=== PATIENT | female | born 1980 | race Caucasian/White ===

== ENCOUNTER → 2017-01-06 | Outpatient (CLI) | payer OTHER ==
[~2017-01-06] MED LIST: CITA40TA4 PO
[2017-01-06 14:05] LABS: RATIO 7.6 mcg/mg (0-30.0)
[2017-01-06 14:12] LABS: ALT/SGPT 21 U/L (12-78); BLOOD UREA NITROGEN 14 mg/dl (7-18); BUN/CREATININE RATIO 21.8 (10-20); CALCIUM 8.5 mg/dl (8.5-10.1); CARBON DIOXIDE 27 mmol/L (21-32); CHLORIDE 105 mmol/L (98-107); CHOLESTEROL 172 mg/dl (0-200); CREATININE 0.65 mg/dl (0.60-1.20); GLUCOSE 85 mg/dl (70-99); POTASSIUM 4.1 mmol/L (3.5-5.1); SODIUM 138 mmol/L (136-145); TRIGLYCERIDES 252 mg/dl (0-150); VERY LOW DENSITY LIPOPROT CALC 50 mg/dl
[2017-01-06 14:23] LABS: ALKALINE PHOSPHATASE 78 U/L (45-117); AST/SGOT 10 U/L (15-37); CHOLESTEROL/HDL RATIO 4.1; HDL CHOLESTEROL 42 mg/dl; LDL CHOLESTEROL CALCULATED 80 mg/dl
[2017-01-06 14:32] LABS: ESTIMATED AVERAGE GLUCOSE 103 mg/dl; HA1C FLAG Normal (Normal)
== END | disposition home or self-care (01) ==
LOC: C.LAB1850 11:43
PROVIDERS: ATTEND Internal Medicine
DX: Z00.00 Encounter for general adult medical examination without abnormal findings (principal); Z13.220 Encounter for screening for lipoid disorders; E11.9 Type 2 diabetes mellitus without complications; F34.1 Dysthymic disorder

== ENCOUNTER → 2017-03-14 | Outpatient (CLI) | payer OTHER ==
[2017-03-18 15:57] LABS: MICROSOMAL AB 6 IU/ML (<9)
== END | disposition home or self-care (01) ==
LOC: C.LAB1850 14:00
PROVIDERS: ATTEND Internal Medicine
DX: E03.9 Hypothyroidism, unspecified (principal)

== ENCOUNTER → 2017-06-26 | Outpatient (CLI) | payer OTHER | END | disposition home or self-care (01) | LOC: C.LAB1850 14:36 | PROVIDERS: ATTEND Internal Medicine | DX: E03.9 Hypothyroidism, unspecified (principal) ==

== ENCOUNTER → 2017-10-27 | Outpatient (CLI) | payer OTHER ==
[2017-10-27 16:59] LABS: ALBUMIN 3.7 gm/dl (3.4-5.0); ALT/SGPT 22 U/L (12-78); AST/SGOT 12 U/L (15-37); BLOOD UREA NITROGEN 12 mg/dl (7-18); CALCIUM 8.4 mg/dl (8.5-10.1); CARBON DIOXIDE 29 mmol/L (21-32); CHOLESTEROL 153 mg/dl (0-200); CREATININE 0.47 mg/dl (0.60-1.20); GLUCOSE 83 mg/dl (70-99); POTASSIUM 4.1 mmol/L (3.5-5.1); SODIUM 138 mmol/L (136-145)
[2017-10-27 17:02] LABS: ALKALINE PHOSPHATASE 80 U/L (45-117); LDL CHOLESTEROL CALCULATED 45 mg/dl; TOTAL PROTEIN 7.2 gm/dl (6.4-8.2)
[2017-10-27 17:04] LABS: CREATININE RANDOM URINE 84.7 mg/dl
[2017-10-28 06:04] LABS: HEMOGLOBIN A1C 5.2 % (4.5-5.6)
== END | disposition home or self-care (01) ==
LOC: C.LAB1850 15:21
PROVIDERS: ATTEND Internal Medicine
DX: E11.9 Type 2 diabetes mellitus without complications (principal); Z13.220 Encounter for screening for lipoid disorders

== ENCOUNTER 2019-04-16 07:00 | Observation (INO) ==
--- NOTE | 2019-04-08 10:34 | PAT Medication Instructions ---
Medication Instructions Date of Service April 08, 2019 Home Medications fluticasone propionate [Flonase Allergy Relief] 1 spray INTRANASAL QAM levothyroxine 75 mcg PO QAM metformin 500 mg PO BID omeprazole 40 mg PO QAM paroxetine HCl [Paxil] 40 mg PO HS quetiapine [Seroquel] 200 mg PO HS topiramate 100 mg PO HS DO NOT take the morning of surgery metformin 500 mg PO BID Take morning of surgery With a small sip of water, OTHERWISE NOTHING TO EAT OR DRINK AFTER MIDNIGHT: fluticasone propionate [Flonase Allergy Relief] 1 spray INTRANASAL QAM levothyroxine 75 mcg PO QAM omeprazole 40 mg PO QAM Take evening before surgery metformin 500 mg PO BID paroxetine HCl [Paxil] 40 mg PO HS quetiapine [Seroquel] 200 mg PO HS topiramate 100 mg PO HS Other Notes If you have any questions please call us at [phone] or [phone] or [phone] or [phone]
--- NOTE | 2019-04-08 14:35 | Anesthesiology Consultation ---
Date of Service April 08, 2019 Assessment & Plan (1) Encounter for pre-operative examination: - Check BSG, test AM DOS Chart Review Chart Review: Pending: Refer to Additional Notes / Consult section (pending preop testing (labs, EKG)) and Patient seen in Pre Admission Testing Teaching & Discussion Pre-Anesthesia Teaching/Discussion Notes: Instructed NPO after midnight before surgery,except medications with 15 cc of water. Medication instructions provided according to the PAT guidelines. History Surgery Operation Date: 04/16/19 07:00 Proposed Procedures p Diagnostic Laparoscopy, Possible Total Laparoscopic Hysterectomy, Possible Total Abdominal Hysterectomy, Left Salpingo Oophorectomy and Cystoscopy - Pam Hutchins Height/Weight Height: 5 ft 5 in Weight: 99.1 kg Allergies Allergy/AdvReac Type Severity Reaction Status Date / Time morphine AdvReac Unknown NAUSEA Verified 04/02/19 10:07 VOMITING Medications Home Medications Medication Instructions Recorded Confirmed Last Taken fluticasone propionate [Flonase 1 spray INTRANASAL QA 04/02/19 04/02/19 Unknown Allergy Relief] levothyroxine 75 mcg PO QAM 04/02/19 04/02/19 Unknown metformin 500 mg PO BID 04/02/19 04/02/19 Unknown omeprazole 40 mg PO QAM 04/02/19 04/02/19 Unknown paroxetine HCl [Paxil] 40 mg PO HS 04/02/19 04/02/19 Unknown quetiapine [Seroquel] 200 mg PO HS 04/02/19 04/02/19 Unknown topiramate 100 mg PO HS 04/02/19 04/02/19 Unknown Past Medical History Medical History Depression Diabetes mellitus, type 2 NIDDM GERD (gastroesophageal reflux disease) controlled Hypothyroidism Obesity Exercise / Class Metabolic Activity II 4-5 Yardwork/Stairs/Walk up hill Past Family History Family History Grandmother (Maternal) Family history of diabetes mellitus Grandmother (Paternal) Family history of diabetes mellitus Grandfather (Paternal) Family history of esophageal cancer Past Surgical History Surgical History H/O oophorectomy RIGHT History of laparotomy OVARIAN CYSTECTOMY Past Anesthesia History No Hx of Anesthesia Complications and No Family Hx of Anesthesia Complications History of PONV No Hx of PONV and No Hx of Motion Sickness Social History Smoking Status: Never smoker Do You Dip or Chew Tobacco: No Hx Alcohol Use: No Hx Substance Use: No Review of Systems Reflux controlled. Patient denies chest pain, shortness of breath, dyspnea on exertion, cough, wheezing, palpitations. Physical Exam Vital Signs VITALS BP 123/74 P 83 TEMP 98.1 SP02 100%RA RESP 16 PHYSICAL Full neck and c-spine range of motion. Full TMJ range of motion. TMD 4 finger breaths Mallampati Score 2 Dentition: intact Lungs: clear throughout to auscultation Cardiac: regular rate and rhythm, no murmurs noted Spine: normal Carotid arteries: negative bruit Extremities: no edema
[2019-04-08 15:26] LABS: Basophils # (auto) 0.05 K/uL (0-0.2); Basophils % (auto) 0.7 %; Eosinophils # (auto) 0.17 K/uL (0-0.5); Eosinophils % (auto) 2.2 %; Hematocrit (blood only) 32.2 % (37-47); Hemoglobin 10.5 g/dL (12.0-16.0); Immature Granulocytes # (auto) 0.03 K/uL (0.00-0.02); Immature Granulocytes % (auto) 0.4 %; Lymphocytes # (auto) 1.81 K/uL (1.2-3.4); Lymphocytes % (auto) 23.7 %; Mean Corpuscular Hemoglobin 25.2 pg (25-34); Mean Corpuscular Hgb Conc 32.6 g/dL (32-36); Mean Corpuscular Volume 77.2 fL (80-100); Mean Platelet Volume 10.7 fL (7.4-10.4); Monocytes # (auto) 0.45 K/uL (0.11-0.59); Monocytes % (auto) 5.9 %; Neutrophils # (auto) 5.14 K/uL (1.4-6.5); Neutrophils % (auto) 67.1 %; Platelet Count 233 K/uL (130-400); RDW Coefficient of Variation 14.7 % (11.5-14.5); RDW Standard Deviation 41.6 fL (36.4-46.3); Red Blood Count 4.17 M/uL (4.2-5.4); White Blood Count 7.65 K/uL (4.8-10.8)
[2019-04-08 15:33] LABS: BUN Creatinine Ratio 16.7 (10-20); Calcium 8.9 mg/dl (8.5-10.1); Creatinine Clr Calc Pharmacy 134.8 ml/min; Est GFR (African American) 128.5; Est GFR (Non-African American) 110.8; Potassium 3.4 mmol/L (3.5-5.1)
[2019-04-08 15:35] LABS: Estimated Average Glucose 111 mg/dl; Hemoglobin A1C 5.5 % (4.5-5.6)
[~2019-04-16 07:00] MED LIST changes: -CITA40TA4 PO; +LR 15ML/HR IV SCH
[2019-04-16] MEDS ORDERED: fentaNYL citrate 100 MCG/2 ML VIAL ONE ×4 (07:28→14:42)
[2019-04-16] MEDS ORDERED: MIDAZOLAM HCL 1 MG/ML 2ML VIAL ONE (07:28)
--- NOTE | 2019-04-16 07:50 | History & Physical Bridge Note ---
Date of Service April 16, 2019 History & Physical Bridge Note I have examined the patient, reviewed the History & Physical and in the interval since the performance of the History & Physical I have noted the following changes of clinical significance: no changes noted
[2019-04-16] MEDS ORDERED: LIDOCAINE HCL 2% 2 ML VIAL/AMP(20MG/ML) INFIL ONE (07:59)
[2019-04-16] MEDS ORDERED: ROCURONIUM BROMIDE 10 MG/ML 5 ML VIAL ONE ×5 (07:59→12:52)
[2019-04-16] MEDS ORDERED: ONDANSETRON INJ 2 MG/ML 2 ML VIAL ONE ×2 (07:59→13:35)
[2019-04-16] MEDS ORDERED: PROPOFOL IV EMULSION 10 MG/ML 20 ML VIAL IV ONE (07:59)
[2019-04-16] MEDS ORDERED: CEFAZOLIN 2000MG 2,000 MG/15 ML SYR IV ONE (08:09)
[2019-04-16] MEDS ORDERED: ONDANSETRON INJ 2 MG/ML 2 ML VIAL IV PRN ×2 (08:18→16:23)
[2019-04-16] MEDS ORDERED: PROMETHAZINE HCL 12.5 MG in SODIUM CHLORIDE 0.9% 50 ML IV PRN (08:18)
[2019-04-16] MEDS ORDERED: HYDROmorphone INJ 2 MG/ML SYR/VIAL IV PRN (08:18)
[2019-04-16] MEDS ORDERED: METOCLOPRAMIDE HCL INJ 5 MG/ML 2 ML VIAL IV PRN (08:18)
[2019-04-16] MEDS ORDERED: ATROPINE SULFATE 0.1 MG/ML 10ML SYR IV PRN (08:18)
[2019-04-16] MEDS ORDERED: ePHEDrine sulfate 50 MG/ML AMP IV PRN (08:18)
[2019-04-16] MEDS ORDERED: ACETAMINOPHEN 1000 MG/100 ML IV IV ONE (08:26)
[2019-04-16] MEDS ORDERED: BUPIVACAINE 0.5 % 5 MG/1 ML MPF 30ML VIAL ONE (08:29)
[2019-04-16] MEDS ORDERED: GLYCOPYRROLATE 0.2 MG/ML VIAL ONE ×2 (09:36→14:07)
[2019-04-16] MEDS ORDERED: NEOSTIGMINE METHYLSULFATE 5 MG/5 ML SYR ONE (09:36)
[2019-04-16] MEDS ORDERED: HYDROmorphone INJ 2 MG/ML SYR/VIAL ONE (12:06)
[2019-04-16] MEDS ORDERED: CEFAZOLIN 250 MG/ML 1 GM VIAL ONE (12:10)
[2019-04-16] MEDS ORDERED: FLOSEAL HEMOSTATIC MATRIX 10ML TOP ONE (12:54)
[2019-04-16] MEDS ORDERED: TISSEEL FIBRIN SEALANT 10ML TOP ONE (12:54)
[2019-04-16] MEDS ORDERED: CEFAZOLIN 2000MG 2,000 MG/15 ML SYR IV STA (13:22)
--- NOTE | 2019-04-16 14:18 | Post Operative Brief Note ---
Immediate Post Op Note v1 Date of Surgery April 16, 2019 Pre & Post Diagnosis Operation Date: 04/16/19 08:15 Pre-Op Diagnosis: Endometriosis, Chronic Pelvic Pain, Left Ovarian Post-Op Diagnosis: Endometriosis, Chronic Pelvic Pain, Left Ovarian Procedure Operation Date: 04/16/19 08:15 Actual Procedures p Diagnostic Laparoscopy,Total Laparoscopic Hysterectomy Left Salpingo Oophorectomy and Cystoscopy(Not Applicable) - Pam Hutchnis s Extensive Lysis of Adhesions(Not Applicable) - Stanley Zimmerman MD Surgeon Pam Hutchins Coal Dumping Equipment Operator Ada Khan PA-C Estimated Blood Loss 200 Findings Consistent with Post-Op Diagnosis Drains [place] Catheter
--- NOTE | 2019-04-16 14:28 | Operative Report ---
Post Operative Report Pre & Post Diagnosis Operation Date: 04/16/19 08:15 Pre-Op Diagnosis: Endometriosis, Chronic Pelvic Pain, Left Ovarian Post-Op Diagnosis: Endometriosis, Chronic Pelvic Pain, Left Ovarian Procedure Operation Date: 04/16/19 08:15 Actual Procedures p Diagnostic Laparoscopy,Total Laparoscopic Hysterectomy Left Salpingo Oophorectomy and Cystoscopy(Not Applicable) - aPm hannah Extensive Lysis of Adhesions(Not Applicable) - Stanley Zimmerman MD Surgeon MD Stanley Higginbotham MD Wheelchair Van Driver Ada Khan PA-C Estimated Blood Loss 200 Findings See Below 1. 8 cm anteverted fibroid uterus 2. Omental adhesions and bowel to the anterior abdominal wall, the left pelvic sidewall including the left adnexa, uterine fundus, posterior body of the uterus, and posterior cul-de-sac 2. After extensive lysis of adhesions, the left ovary appeared enlarged and with multiple cysts 3. Normal appearing left fallopian tube 4. Right ovary surgically absent 5. Normal appearing right fimbria on the right IP ligament 6. Anterior cul-de-sac with filmy adhesions to the lower uterine segment 7. Obliterated posterior cul-de-sac 8. Normal appearing liver edge 9. Appendix not visualized 10. On Cystoscopy, brisk bilateral efflux of urine by ureteral orifices Fluids 1200 ml Specimens Uterus, cervix, right fimbria, left fallopian tube and ovary Drains Harris catheter removed prior to the end of the case Anesthesia Type General Complications none Indications 39 yo with pelvic pain and endometriosis. Unable to tolerate medical management with depo lupron. Desires definitive surgical management via hysterectomy. Description of Procedure Under GA in the dorsal lithotomy position, the patient was prepped and drapped in the usual sterile fashion. Beginning at the vagina, a harris catheter was inserted under sterile conditions and left in situ for the remainder of the case. A weighted speculum was then placed in the vagina and with the help of a right angle retractor the cervix was visualized and grasped anteriorly with a single tooth tenaculum. The uterus was sounded to 8 cm with a uterine sound. The cervical os was dilated up. An Advincula uterine manipulator with a metal cup was inserted. The weighted speculum was then removed. Attention was then turned to the abdomen. 0.5%marcaine solution was used for infiltration of all port sites. Beginning in the left upper quadrant ([place]), the skin was first infiltrated with ~ 2 cc of the marcaine solution, then a 5 mm incision was made through the skin with a #11 blade. Direct entry with a 5 mm trocar, sleeve and laparoscope was made into the peritoneal cavity. The opening pressure was < 8 mmHg. The peritoneal cavity was insufflated with CO2 gas to a maximum pressure of 20 mmHg. Examination of the peritoneal cavity revealed no signs of injury from entry and severe omental and bowel adhesions which was noted in the above findings. The patient was then placed in steep Trendelenburg and three more 5 mm trocars were placed, one on the right and two on the left, in the standard technique, taking care to avoid the epigastric vessels. All trocars were placed under direct visualization with no inadvertent damage to underlying structures. The uterus was attempted to be upheld however, due to severe omental and bowel adhesions to the anterior abdominal wall, the uterus was not initially visualized. The hand held Harmonic was then used to gently grasp, coagulate and cut the omental adhesions from the anterior abdominal wall. General surgery was consulted to address the extensive bowel adhesions to the anterior abdominal wall, left pelvic side and uterus. Dr. Zimmerman presented to the OR approximately 10:45 am. An additional 5 mm trocar was inserted in the RUQ, inferior to the liver. Dr. Zimmerman then performed extensive lysis of adhesions and enterolysis using the cordless Harmonic, endoshears, blunt dissection and hydrodissection. Dr. Zimmerman was able to remove the bowel and herniated omentum from the anterior abdominal wall. After freeing the adhesions from the anterior abdominal wall, he dissected additional bowel adhesions from the left adnexal region, allowing visualization of the left fallopian tube and ovary. Dr. Zimmerman then turned his attention to the right adnexal area and lysed peritone al adhesions from the small bowel. Lastly, using endoshears, Dr. Zimmerman was able to free the small bowel from the uterine fundus, posterior body of the uterus, and the colon from the posterior cul-de-sac, allowing normalization of anatomical structures, which in turn, released the uterus from extensive bowel adhesions and restored the obliterated posterior cul-de-sac. After extensive lysis of adhesions (more than 2 hours), hemostasis was appreciated and the hysterectomy portion was initiated. Now that the uterus was able to be visualized, a 5 mm trocar was inserted into the umbilicus to assess a closer field of vision. Beginning on the left side, the Infundibular ligament was identified by lifting the tube towards the anterior wall of the abdomen. The ROBBIN Harmonic device was then used to clamp and ligate the IP ligament in three sequential bites with ligation. The IP was then cut middistance, again being sure to be clear of the ureter. Following this, the broad ligament was sequentially grasped, ligated, and cut in the direction of the round ligament hugging next to the fallopian tube. The round ligament was then ligated and cut, followed by the uteroovarian ligament. Following this, the anterior leaf of the broad ligament was then taken down on the left side, dissecting down towards the peritoneal reflection at the base of the bladder and adjacent to the cervix. Attention was then turned to the right side and working distally along the length of the fallopian tube, the mesosalpinx was exposed by lifting the tube up towards the anterior abdominal wall. The mesosalpinx was then sequentially, clamped, ligated, and cut using the ROBBIN Harmonic working alongside the length of the tube and towards the cornua. Once the level of the cornua was reached the tube was ligated and cut. The right round ligament was then ligated and cut. Following this, the anterior leaf of the broad ligament was then taken down on the right side, dissecting down towards the peritoneal reflection at the base of the bladder and adjacent to the cervix. Once the bladder was appropriately dissected free from the lower anterior uterine segment and the tissues skeletonized, the uterine arteries were bilaterally clamped and ligated. Pedicles were checked and hemostatic. At the level of the metal cup of the uterine manipulator, the vaginal vault was incised circumferentially with the ROBBIN Harmomic. The uterus, cervix, right fallopian tube, and left fallopian tube and ovary was delivered through the vagina and sent to pathology. A vaginal occluder was then placed into the vagina to form a pneumatic seal and all the pedicles as well as the cuff edges were examined. The vaginal vault was then closed with a V-Loc barbed stitch being sure to avoid the bladder lateral pedicles. Following vault closure, the pelvis was copiously irrigated and suctioned. An inspection of all areas was made to ensure hemostasis. Floseal and Tisseal was applied to the adnexal regions and vaginal cuff. Hemostasis was again appreciated. All ports were removed under direct visualization and hemostasis noted. All the incision sites were then closed with 4-0 monocryl sutures in a subcuticular fashion and dermabond. The vaginal occluder and harris catheter were removed without incident. Cystoscopy was then performed. Normal appearing bladder dome noted which was free of lesions or suture. Brisk bilateral efflux of urine by ureteral orifices was visualized. The bladder was drained and the cystoscope was removed. At the end of the procedure, all sponges, instruments, and sharps were counted and correct. Estimated blood loss was 200 ml. The patient was taken to recovery in stable condition. I attest to the content of the Intraoperative Record and any orders documented therein. Any exceptions are noted below.
[2019-04-16] MEDS: fentaNYL citrate 100 MCG/2 ML VIAL IV PRN ×2 (14:44→14:49)
--- NOTE | 2019-04-16 15:39 | Anesthesiology Progress Note ---
Date of Service April 16, 2019 Anesthesia Post Procedure Vital Signs Vital Signs: Temp Pulse Pulse Resp BP BP Pulse Ox 04/16/19 15:30 116 H 15 137/81 98 04/16/19 15:20 115 H 13 134/79 97 04/16/19 15:10 117 H 13 123/85 97 04/16/19 15:00 120 H 16 127/82 95 04/16/19 14:50 118 H 16 129/78 96 04/16/19 14:40 118 H 18 134/90 97 04/16/19 14:31 37.7 C H 120 H 20 137/89 97 04/16/19 07:42 37 C 81 16 130/86 100 Transfer of Care Handoff Completed per policy Notes Mental Status: alert / awake / arousable and participated in evaluation Patient Amnestic to Procedure: Yes Nausea / Vomiting: adequately controlled Pain: adequately controlled Airway Patency, RR, SpO2: stable & adequate BP & HR: stable & adequate Hydration State: stable & adequate Anesthetic Complications: no major complications apparent
[2019-04-16] MEDS ORDERED: OXYCODONE/ACETAMINOPHEN 5mg/325mg TAB PO PRN (16:23)
[2019-04-16] MEDS: IBUPROFEN 600 MG TAB PO SCH ×2 (18:09→22:40)
[2019-04-16] MEDS: ACETAMINOPHEN 325 MG TAB PO SCH ×2 (18:09→22:40)
[2019-04-16] MEDS: SIMETHICONE 80 MG CHEW PO SCH ×2 (18:09→22:41)
[2019-04-16] MEDS ORDERED: TOPIRAMATE 100 MG TAB PO SCH (21:00)
[2019-04-16] MEDS ORDERED: METFORMIN HCL 500 MG TAB PO SCH (21:00)
[2019-04-16] MEDS ORDERED: QUETIAPINE FUMARATE 200 MG TAB PO SCH (21:00)
[2019-04-16] MEDS ORDERED: PARoxetine HCl 20 MG TAB PO SCH (21:00)
[2019-04-16] MEDS ORDERED: DOCUSATE SODIUM 100 MG CAP PO SCH (21:00)
[2019-04-17] MEDS: ACETAMINOPHEN 325 MG TAB PO SCH (04:41)
[2019-04-17] MEDS: IBUPROFEN 600 MG TAB PO SCH (04:41)
[2019-04-17] MEDS: SIMETHICONE 80 MG CHEW PO SCH (04:41)
[2019-04-17] MEDS ORDERED: LEVOTHYROXINE SODIUM 75 MCG TABLET PO SCH (06:30)
[2019-04-17] MEDS ORDERED: SODIUM CHLORIDE 0.65% NA SOLN 45 ML (OCEAN) ONE (06:36)
--- NOTE | 2019-04-17 07:34 | Gynecologic Progress Note ---
Date of Service April 17, 2019 Assessment & Plan (1) Status post hysterectomy with oophorectomy: POD#1. s/p Diagnostic laparoscopy, Extensive lysis of adhesions and enterolysis, Total Laparoscopic Hysterectomy, Right salpingectomy, Left salpingo-oophorectomy and cystoscopy. Patient meeting all discharge criteria. Discharge home with instructions and medications. Subjective s/p Diagnostic laparoscopy, Extensive lysis of adhesions and enterolysis, Total Laparoscopic Hysterectomy, Right salpingectomy, Left salpingo-oophorectomy and cystoscopy. Patient with no complaints this morning. Pain controlled with NSAIDs, Tolerating diet. Ambulating without difficulty. Denies urinary symptoms. Denies flatus. Review of Systems Review of Systems: All systems reviewed & are unremarkable except as noted in HPI & below Physical Exam Constitutional: WD/WN, vitals as above well developed and well nourished Respiratory: normal respiratory effort, lungs clear to auscultation Cardiovascular: RRR, no murmur, no edema Gastrointestinal (Abdomen): Inspection/Auscultation: abdomen normal to inspection and normal bowel sounds Appropriately tender to palpation. Incisions: C/D/I. No erythema or edema. Results & Data Vital Signs (Past 12 Hours) Vital Signs Temp Pulse Resp BP Pulse Ox 04/17/19 04:40 36.9 C 91 H 16 94 04/16/19 23:07 36.6 C 95 H 16 112/74 96 04/16/19 19:30 36.5 C 103 H 18 119/72 98
--- NOTE | 2019-04-17 07:39 | Discharge Summary ---
Date of Service April 17, 2019 Admission HPI Per Admitting Provider 39 yo with chronic pelvic pain and known history of endometriosis. Unable to tolerate medical management with depo lupron. Desiring definitive surgical management via hysterectomy. Admission Exam (Per Admitting) Constitutional WD/WN, vitals as above well developed and well nourished Respiratory normal respiratory effort, lungs clear to auscultation Cardiovascular RRR, no murmur, no edema Gastrointestinal (Abdomen) Inspection/Auscultation: abdomen normal to inspection and normal bowel sounds Discharge Data Procedures Performed Operation Date: 04/16/19 08:15 Actual Procedures p Diagnostic Laparoscopy,Total Laparoscopic Hysterectomy Left Salpingo Oophorectomy and Cystoscopy(Not Applicable) - Pam hannah Extensive Lysis of Adhesions(Not Applicable) - Stanley Zimmerman MD Hospital Course (1) Status post hysterectomy with oophorectomy: POD#1. s/p Diagnostic laparoscopy, Extensive lysis of adhesions and enterolysis, Total Laparoscopic Hysterectomy, Right salpingectomy, Left salpingo-oophorectomy and cystoscopy. Patient meeting all discharge criteria. Discharge home with instructions and medications. Discharge Instructions POST OPERATIVE: BOWEL FUNCTION/MEDICATIONS: 1. Constipation pain and discomfort are the most common complaints 5-7 days after surgery. Points 2-6 address the things that can help. 2. Chewing gum can help stimulate the gut and help improve digestion and motility. 3. Milk of Magnesia 1-2 times per day until return of bowel function. 4. Colace is a stool softener that helps. Taking this 2-3 times per day until bowel function returns to normal is highly recommended. 5. Dulcolax is a laxative that may be used if several days have passed without a bowel movement. Alternatively Miralax may be used daily instead. 6. Drink plenty of fluids as this will also reduce constipation. 7. Narcotic pain medications will be prescribed by your physician. They are safe to use and we encourage you to use them. If you are not allergic, ibuprofen will also be prescribed. Many patients will be able to transition off of the narcotic medications to ibuprofen by postoperative day 3. ACTIVITY RECOMMENDATIONS: 1. Get plenty of rest and listen to your body. If you are tired, take a nap. 2. You may shower, but do not take a tub bath until you see your doctor at the 2 week post operative visit. 3. Absolutely NO intercourse and nothing in the vagina until you are examined by your doctor at the 6 week visit. At that visit it will be determined wh en such activities can be resumed. This can range from 6-12 weeks after your surgery depending on healing time. 4. The main physical activity in the first week should be walking. By the second week you can slowly increase activity. There are no limits on walking up and down stairs. 5. Do not lift more than 5-10 lbs for 4 weeks. Remember the "one-handed rule", i.e. if you can lift something with only one hand it's likely okay. 6. Minimize fish boning machine feeder like vacuuming and exercising for 4 weeks. "Overdoing it" can lead to incisions not healing, pain and vaginal bleeding, so again, listen to your body. 7. Driving can be resumed when you feel able. Do not drive within 24 hours of taking a narcotic medication. EXPECTATIONS: 1. Vaginal spotting, bleeding and discharge are common after surgery. There may even be an odor to the discharge which is often related to sutures used in the vagina. If you experience heavy vaginal bleeding, call the office number day or night [phone]. 2. Bladder discomfort is common after surgery from the catheter. This usually resolves in 1-2 weeks. 3. By the end of the 3rd or 4th week you should be feeling much better. It may take up to 6 weeks for your energy levels to return to normal. 4. Narcotic medications have side effects such as: dizziness, headache, nausea and/or vomiting. If you suspect your pain medication is causing problems, call our office and we may be able to prescribe an alternate medication. 5. The skin incisions are often covered with a liquid bandage. This will gradually peel off over time. CALL THE OFFICE IF YOU HAVE ANY OF THE FOLLOWIN. Temperature of 101 degrees or higher. 2. Severe abdominal or pelvic pain not relieved by pain medication. 3. Persistent nausea or vomiting. 4. Increased pain with urination or difficulty urinating. 5. Bright red bleeding that soaks more than 1 pad per hour. CONTACT PHONE NUMBERS: Main Office: [phone] Avoid all tobacco products. If you need help to stop smoking, call [facility] FREE QUITLINE at . This is a free call.
[2019-04-17] MEDS ORDERED: PANTOprazole 40 MG TAB PO SCH (09:00)
[2019-04-17] MEDS ORDERED: FLUTICASONE PROPIONATE NA SPR 16 GM BTL SCH (09:00)
== END 2019-04-17 07:55 | disposition home or self-care (01) ==
LOC: ASU 07:00 → 4S2 07:00

== ENCOUNTER 2019-04-19 16:12 | Inpatient (IN) ==
[2019-04-19] MEDS ORDERED: PIPERACILLIN/TAZOBACTAM 4.5 GM/120 ML BAG IV ONE (16:30)
[2019-04-19] MEDS ORDERED: SODIUM CHLORIDE 0.9% 1000ML 2,000 ML IV ONE (16:30)
[2019-04-19] MEDS ORDERED: PIPERACILL/TAZOBAC CONSULT ACTIVE PRN ×3 (16:30→23:37)
[2019-04-19] MEDS ORDERED: HYDROmorphone INJ 0.5 MG/0.5 ML SYR IV STA ×2 (16:30→20:49)
[2019-04-19] MEDS ORDERED: ONDANSETRON INJ 2 MG/ML 2 ML VIAL IV STA (16:30)
[2019-04-19] MEDS ORDERED: SODIUM CHLORIDE 0.9% 250 ML IV PRN (16:33)
[2019-04-19] MEDS ORDERED: ACETAMINOPHEN 500 MG TAB PO STA (16:36)
[2019-04-19 16:44] LABS: Hematocrit (blood only) 28.8 % (37-47); Hemoglobin 9.7 g/dL (12.0-16.0); Mean Corpuscular Hemoglobin 25.5 pg (25-34); Mean Corpuscular Hgb Conc 33.7 g/dL (32-36); Mean Corpuscular Volume 75.6 fL (80-100); Platelet Count 353 K/uL (130-400); RDW Coefficient of Variation 15.4 % (11.5-14.5); RDW Standard Deviation 42.8 fL (36.4-46.3); Red Blood Count 3.81 M/uL (4.2-5.4)
[2019-04-19 16:56] LABS: INR 1.2 (0.9-1.1); Partial Thromboplastin Ratio 1.3; Partial Thromboplastin Time 34.3 Seconds (21.0-31.0); Prothrombin Time 11.9 Seconds (9.0-12.0)
[2019-04-19 17:03] LABS: Basophils # (auto) 0.01 K/uL (0-0.2); Basophils % (auto) 0.1 %; Immature Granulocytes # (auto) 0.05 K/uL (0.00-0.02); Immature Granulocytes % (auto) 0.4 %; Lymphocytes # (auto) 0.86 K/uL (1.2-3.4); Lymphocytes % (auto) 6.4 %; Monocytes % (auto) 5.2 %; Neutrophils # (auto) 11.88 K/uL (1.4-6.5); Neutrophils % (auto) 87.9 %
--- NOTE | 2019-04-19 17:04 | XRay Report ---
SINGLE VIEW CHEST CLINICAL HISTORY: Sepsis. FINDINGS: An AP, portable, upright chest radiograph is compared to study dated 11/26/2012. The examina tion is degraded by portable technique, large body habitus, and patient rotation. The cardiomediastin al silhouette is unremarkable. There are low lung volumes with bibasilar atelectasis. No airspace con solidation or large pleural effusion is identified. Apparent lucency beneath the right hemidiaphragm likely corresponds to asymmetry of the anterior and posterior aspect of the diaphragm. No pneumothora x is seen. The bony thorax is grossly intact. IMPRESSION: 1. Low lung volumes with no acute cardiopulmonary abnormality. 2. Apparent lucency underlying the right hemidiaphragm likely corresponds to asymmetry of the anterio r/posterior diaphragm. Intraperitoneal free air is considered much less likely. A lateral chest radio graph would be confirmatory. Electronically signed by: Tanmay Rodriguez M.D. 04/19/2019 5:03 PM
[2019-04-19 17:05] LABS: iSTAT Creatinine 1.3 mg/dl (0.6-1.3); iSTAT Hemoglobin 9.5 g/dl (12.0-16.0); iSTAT Ionized Calcium 1.08 mmol/l (1.12-1.32); iSTAT Potassium 3.5 mEq/L (3.3-5.0)
[2019-04-19 17:07] LABS: Albumin Globulin Ratio 0.7 (0.9-2); Albumin Level 2.6 gm/dl (3.4-5.0); BUN Creatinine Ratio 17.6 (10-20); Est GFR (African American) 60.1; Est GFR (Non-African American) 51.9; Potassium 3.5 mmol/L (3.5-5.1); Total Protein 6.6 gm/dl (6.4-8.2)
[2019-04-19] MEDS ORDERED: IOVERSOL 100ml IV PRN (17:20)
--- NOTE | 2019-04-19 18:45 | CT Scan Report ---
ABDOMEN AND PELVIS CT WITH IV CONTRAST CT DOSE: 1571.66 mGy.cm HISTORY: Sepsis post op TECHNIQUE: Multiaxial CT images of the abdomen and pelvis were performed following the use of intrave nous contrast. A dose lowering technique was utilized adhering to the principles of ALARA. COMPARISON STUDY: None. FINDINGS: Patchy bilateral lower lobe densities. There is a moderate amount of pneumoperitoneum. Trac e perihepatic ascites. The gallbladder is distended. The liver, spleen, right adrenal gland, pancreas , and right kidney are unremarkable. No hydronephrosis. A 1.3 cm exophytic hypodense lesion within th e lower pole the left kidney. This likely represents a cyst. There is a 3.5 cm indeterminate left adr enal gland nodule/mass. No retroperitoneal lymphadenopathy. Small fat and fluid containing infraumbil ical hernias. Gas within the bladder. No bladder wall thickening. Postoperative changes consistent wi th recent hysterectomy. Partially loculated gas and fluid collection seen within the deep pelvis abut ting the vaginal cuff and extending into the left side of the pelvis to the left paracolic gutter whi ch measures approximately 13 x 3.7 cm. There is also a small amount of fluid within the right lower q uadrant which is not loculated. There is an additional small partially loculated gas and fluid collec tion within the left side the abdomen on image 344 measuring 4.7 cm. No evidence for bowel obstructio n. Inflammatory change seen throughout the mesentery. Multiple colonic diverticula. Focal thickening within the mid to distal descending colon which could be reactive to the adjacent partially loculated fluid collection. Mild thickening and inflammatory change at the vaginal cuff. Small amount of fluid along the left side of the mesentery. IMPRESSION: 1. Status post hysterectomy. There is a moderate amount of pneumoperitoneum which is nonspecific but favors postoperative change. 2. There are 2 partially loculated gas and fluid collections seen within the deep pelvis abutting the vaginal cuff and along the left side the abdomen as described above. This could represent developing abscesses. 3. Diffuse mesenteric edema/inflammatory change. There is also a small amount of fluid along the righ t side the abdomen, within the mesentery, and perihepatic locations. This could be due to postoperati ve change or an infectious process given the patient's history of sepsis. 4. Focal thickening within the mid to distal descending colon which is likely reactive to the adjacen t partially loculated dominant gas and fluid collection. However, a superimposed diverticulitis/colit is could also have a similar appearance would be difficult to exclude. 5. A 3.5 cm left adrenal gland nodule/mass. Follow-up nonemergent dedicated adrenal MRI is recommende d for further evaluation. 6. Patchy right basilar densities are nonspecific and may represent atelectasis or pneumonia. 8. Distended gallbladder. 9. Additional findings as described above. Electronically signed by: Jeffery Slaughter M.D. 04/19/2019 6:43 PM
[2019-04-19] MEDS ORDERED: SODIUM CHLORIDE 0.9% 1000ML 1,000 ML IV ONE (19:18)
[2019-04-19 20:12] LABS: Appearance Urine Clear (Clear); Bilirubin Urine Negative (Negative); Blood Urine 3+ (Negative); Color Urine Yellow; Glucose Urine UA Negative (Negative); Ketones Urine Negative (Negative); Leukocyte Esterase Urine Trace (Negative); Nitrite Urine Negative (Negative); Protein Urine Negative (Negative); Urobilinogen Urine Negative (Negative)
[2019-04-19 20:23] LABS: Epithelial Cell Urine >30 /lpf (0-5); RBC Urine >30 /hpf (0-4)
[2019-04-19 20:24] LABS: Bacteria Urine 1+ (Negative)
--- NOTE | 2019-04-19 21:55 | Consultation ---
Date of Consultation April 19, 2019 Assessment & Plan (1) Sepsis: 39-year-old female recent history of hysterectomy presents with tachycardia, elevated white count and generally feeling unwell. Treatment of sepsis based on SIRS criteria initiated in the ED. Patient is being admitted for fluid management and IV antibiotics. Sepsis per sirs No signs of peritonitis, post op fluid collection seen on abdominal CT Continue broad-spectrum antibioticsZosyn Continue maintenance fluid, received 3 L in the ED Lactate improved from 3.3 to 1.8 following fluid management Keep patient n.p.o. except for ice chips, sips and meds Continue Zofran for nausea Status post hysterectomy Continue pain control Hypothyroidism Continue Synthroid Diabetes Sliding scale Mood disorder Continue paroxetine, Seroquel, topiramate DVT prophylaxisSCDs CODE STATUSfull Saige.p.o. except for chips, sips, meds (2) Abdominal abscess: (3) Nausea & vomiting: (4) Status post hysterectomy with oophorectomy: (5) Encounter for pre-operative examination: (6) Depression: (7) Hypothyroid: (8) Diabetes: Supervising Physician Co-Signing Physician Notes Patient was seen and examined by me personally. I reviewed the chart, the orders and discussed the case in detail with Dr. Agustin Johnson MD. . I read this consultation note and agree with its contents to entirety. History of Present Illness Requesting Physician: Dr. Grullon Reason for Consultation: Sepsis, fluid management Attending Physician: Dr. Moody History of Present Illness 41-year-old female with past history of depression, hypothyroidism, diabetes presents from PCP following tachycardia and feeling generally unwell. Patient recently had hysterectomy last Friday. She is been seen in the emergency room yesterday with nausea and vomiting. She denies any significant abdominal pain, but states that there is some generalized tenderness. She has had decreased appetite, but has been having her bowels. She diarrhea or blood in her stool. Denies fevers, shortness of breath, cough, sore throat, runny nose. Allergies Allergy/AdvReac Type Severity Reaction Status Date / Time morphine AdvReac Intermediate NAUSEA Verified 04/19/19 20:41 VOMITING Home Medications Home Medications Medication Instructions Recorded Confirmed Type fluticasone propionate [Flonase 1 spray INTRANASAL QAM 04/02/19 04/19/19 History Allergy Relief] levothyroxine 75 mcg PO QAM 04/02/19 04/19/19 History metformin 500 mg PO BID 04/02/19 04/19/19 History omeprazole 40 mg PO QAM 04/02/19 04/19/19 History paroxetine HCl [Paxil] 40 mg PO HS 04/02/19 04/19/19 History quetiapine [Seroquel] 200 mg PO HS 04/02/19 04/19/19 History topiramate 100 mg PO HS 04/02/19 04/19/19 History docusate sodium [Colace] 100 mg PO BID #30 cap 04/16/19 04/19/19 Rx oxycodone-acetaminophen [Percocet] 1 tab PO Q4H PRN #14 tab 04/16/19 04/19/19 Rx acetaminophen 650 mg PO Q6H PRN 04/18/19 04/19/19 History ibuprofen 600 mg PO Q6H PRN 04/18/19 04/19/19 History ondansetron HCl [Zofran] 4 mg PO Q6H #10 tab 04/18/19 04/19/19 Rx oxycodone 5 mg PO Q6H PRN #14 tab 04/18/19 04/19/19 Rx simethicone 80 mg PO PCHS PRN 04/18/19 04/19/19 History Patient History Medical History Depression Diabetes mellitus, type 2 NIDDM GERD (gastroesophageal reflux disease) controlled Hypothyroidism Obesity Surgical History H/O oophorectomy RIGHT History of hysterectomy History of laparotomy OVARIAN CYSTECTOMY Family History Grandmother (Maternal) Family history of diabetes mellitus Grandmother (Paternal) Family history of diabetes mellitus Grandfather (Paternal) Family history of esophageal cancer Social History Preferred Language: Croatian 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: Effective Senior Storage Administrator Required: No Beliefs That Will Affect Care: None marital status: Current Living Situation: Spouse current occupational status: employed Feels Safe at Home: Yes Smoking Status: Never smoker Second Hand Exposure: No ; Hx Alcohol Use: No Hx Substance Use: No Dental Care, Regularly: Yes Seatbelt Use: always Sunscreen Use: Yes Review of Systems Review of Systems: All systems reviewed & are unremarkable except as noted in HPI & below Physical Exam Constitutional: WD/WN, vitals as above Eyes: PERRL, conjunctivae normal, anicteric sclerae ENMT: external ear and nose normal, oropharynx normal Neck: trachea midline, no thyromegaly Respiratory: normal respiratory effort, lungs clear to auscultation Cardiovascular: RRR, no murmur, no edema Gastrointestinal (Abdomen): Inspection/Auscultation: + abdomen distended, + abdominal edema and + abdominal surgical scar Percussion/Palpation: abdomen soft; abdomen nontender, no guarding and abdomen not rigid Periumbilical ecchymosis, lap incisions are clean, intact, no surrounding erythema or cellulitis. Results & Data Vital Signs (Past 12 Hours) Vital Signs Temp Pulse Pulse Resp BP BP Pulse Ox 04/19/19 20:30 120 H 115/89 04/19/19 20:21 111 H 04/19/19 20:15 106/69 04/19/19 20:00 106/68 04/19/19 19:48 110 H 120/70 04/19/19 19:46 115 H 04/19/19 18:31 118 H 04/19/19 18:30 117 H 94/61 L 04/19/19 18:20 115 H 33 H 04/19/19 18:15 116 H 26 H 90/66 L 04/19/19 18:10 118 H 22 04/19/19 18:01 118 H 22 04/19/19 18:00 119 H 25 H 104/62 04/19/19 17:50 121 H 28 H 04/19/19 17:45 122 H 25 H 101/67 04/19/19 17:40 121 H 33 H 04/19/19 17:31 125 H 39 H 04/19/19 17:30 125 H 41 H 101/60 04/19/19 17:28 37.1 C 126 H 24 108/51 L 99 04/19/19 17:27 126 H 44 H 04/19/19 17:26 128 H 43 H 108/61 04/19/19 17:10 121 H 23 100 04/19/19 17:04 122 H 24 106/68 95 04/19/19 17:01 121 H 38 H 100 04/19/19 17:00 121 H 37 H 106/68 100 04/19/19 16:53 127 H 41 H 92 04/19/19 16:52 128 H 20 98/66 L 92 04/19/19 16:50 127 H 42 H 98/66 L 92 04/19/19 16:49 88 L 04/19/19 16:19 39.1 C H 130 H 20 116/78 94 PG Care Time/CCT Total # of Minutes Spent Total Time Spent with Patient: Total time spent is greater than 50% in coordination of care (as documented) at patient's floor/unit and/or counseling patient: Resident Activity Tracking Resident Involvement: Resident Care Provided Care Provided: Adult Hospital Medicine (1) Sepsis Sepsis acute organ dysfunction status: unspecified Sepsis type: sepsis due to unspecified organism Qualified Code(s): A41.9 - Sepsis, unspecified organism (2) Nausea & vomiting Vomiting Intractability: non-intractable Vomiting type: unspecified Qualified Code(s): R11.2 - Nausea with vomiting, unspecified
--- NOTE | 2019-04-19 22:25 | History and Physical Report ---
DATE OF ADMISSION: 04/19/2019 HISTORY OF PRESENT ILLNESS: The patient is a 39-year-old status post total laparoscopic hysterectomy on 04/16/2019. The patient was discharged home on 04/17/2019 in stable condition. The patient was seen again in the ER on 04/18/2019 for nausea and vomiting. She was given Zofran and discharged home. She did, however, have tachycardia during the ER visit on 04/18/2019 and was asked to follow up with her PCP. The patient saw her PCP this morning who told her she looked rather pale and asked her to be seen in the ER. In the ER, the patient presented with complaints of generalized fatigue and mild abdominal pain. She denied any headache or shortness of breath. Vitals at the ER showed pulse of 120, blood pressure was 101/67. CBC and complete chemistry were done in the ER. Hemoglobin was 9.5, hematocrit was 28. There is some bandemia. Coags: INR 1.2, PTT 34.3. Chemistry showed BUN of 23, creatinine 1.28, glucose is 153. The patient's lactate is 3.3. She has been given lactate by the ER physician. Repeat lactate is 1.8, which is normal range. The patient had CT scan and x-ray done. Chest x-ray showed low lung volumes with no acute cardiopulmonary abnormality. There was no intraperitoneal free air seen on chest x-ray. CT scan showed moderate amount of pneumoperitoneum which was consistent with postop changes. There were two partially lobulated gas fluid collections seen within the deep pelvic abutting the vaginal cuff along the left side of the abdomen. It was described as a finding that could represent an abscess. There was a 3.5 cm left adrenal gland nodule. Otherwise, the rest of the CT scan is rather unremarkable. PAST MEDICAL HISTORY: The patient has history of depression, diabetes, and thyroid disease. PAST SURGICAL HISTORY: The patient has had 2 abdominal surgeries including her most recent total abdominal hysterectomy. FAMILY HISTORY: Noncontributory. ALLERGIES: THE PATIENT IS ALLERGIC TO MORPHINE. SHE REPORTS NAUSEA AND VOMITING. PHYSICAL EXAMINATION: GENERAL: Well-developed, well-nourished white female, does not appear to be in any acute distress. VITAL SIGNS: Blood pressure is 115/89, pulse is 120. The patient denies any shortness of breath. HEART: S1, S2, tachycardic. LUNGS: Clear to auscultation bilaterally. ABDOMEN: Slightly distended. Incision sites from the laparoscopic sites are unremarkable. The patient reports having bowel movements. There is positive bowel sounds. EXTREMITIES: No cyanosis, clubbing or edema. ASSESSMENT AND PLAN: Tachycardia and abdominal pain, status post total abdominal hysterectomy. The patient is being admitted for observation. We will do expectant management for now including with IV fluids management and monitor the patient. The patient will be started on antibiotics as well.
[2019-04-19] MEDS ORDERED: PIPERACILLIN/TAZOBACTAM 4.5 GM in DEXTROSE 5% 100 ML IV SCH (23:00)
--- NOTE | 2019-04-19 23:33 | Emergency Department Note ---
Entered by Macy Dunn acting as a scribe for Betito Simms DO History of Present Illness General Chief complaint: Abdominal Pain Stated complaint: BELLY PAIN, HEART RACING Source: patient History of Present Illness Provider complaint: abdominal pain Onset (ago): day(s) 4 Location: abdomen Pain Consistency: + intermittent Maximum Pain Intensity: 4 Current Pain Intensity: 5 Associated symptoms: + cough, + fever/chills, + weakness and + other (+dehydration, -runny nose, -vaginal bleeding, -vaginal discharge, -urinary symptoms, +dehydrated); no chest pain and no shortness of breath The patient is a 39 year old female who presents to the Emergency Room with complaints of worsening abdominal pain since her hysterectomy on Friday. She reports that it was done because of her endometriosis and cyst on her ovary. She notes that it was done by Dr. Hutchins and she notes that there were complications of adhesions during the operation. She notes that the pain is intermittent and located in her lower abdomen. The patient rates her pain as 5/10. She states that she was here yesterday for nausea and palpitations which has since resolved. She mentions she is unsure when her fever started. She denies any cough, runny nose, vaginal bleeding, vaginal discharge, chest pain, urinary symptoms, or shortness of breath. She notes that she has been weak and felt dehydrated. Home Medications Home Medications Medication Instructions Recorded Confirmed Type fluticasone propionate [Flonase 1 spray [facility] 04/02/19 04/19/19 History Allergy Relief] levothyroxine 75 mcg PO QA 04/02/19 04/19/19 History metformin 500 mg PO BID 04/02/19 04/19/19 History omeprazole 40 mg PO QAM 04/02/19 04/19/19 History paroxetine HCl [Paxil] 40 mg PO HS 04/02/19 04/19/19 History quetiapine [Seroquel] 200 mg PO HS 04/02/19 04/19/19 History topiramate 100 mg PO HS 04/02/19 04/19/19 History docusate sodium [Colace] 100 mg PO BID #30 cap 04/16/19 04/19/19 Rx oxycodone-acetaminophen [Percocet] 1 tab PO Q4H PRN #14 tab 04/16/19 04/19/19 Rx acetaminophen 650 mg PO Q6H PRN 04/18/19 04/19/19 History ibuprofen 600 mg PO Q6H PRN 04/18/19 04/19/19 History ondansetron HCl [Zofran] 4 mg PO Q6H #10 tab 04/18/19 04/19/19 Rx oxycodone 5 mg PO Q6H PRN #14 tab 04/18/19 04/19/19 Rx simethicone 80 mg PO PCHS PRN 04/18/19 04/19/19 History Allergies Allergy/AdvReac Type Severity Reaction Status Date / Time morphine AdvReac Intermediate NAUSEA Verified 04/19/19 20:41 VOMITING Past Med/Surg History Medical History Depression Diabetes mellitus, type 2 NIDDM GERD (gastroesophageal reflux disease) controlled Hypothyroidism Obesity Surgical History H/O oophorectomy RIGHT History of hysterectomy History of laparotomy OVARIAN CYSTECTOMY Family History Grandmother (Maternal) Family history of diabetes mellitus Grandmother (Paternal) Family history of diabetes mellitus Grandfather (Paternal) Family history of esophageal cancer Social History Preferred Language: Turkish 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: Effective Senior Dentist Required: No Beliefs That Will Affect Care: None marital status: Current Living Situation: Spouse current occupational status: employed Feels Safe at Home: Yes Smoking Status: Never smoker Second Hand Exposure: No ; Hx Alcohol Use: No Hx Substance Use: No Dental Care, Regularly: Yes Seatbelt Use: always Sunscreen Use: Yes Review of Systems See HPI for pertinent positives & negatives. and A total of 10 systems reviewed and were otherwise negative Physical Exam Vital Signs Vital Signs - 24 hr 04/19/19 16:19 04/19/19 16:49 04/19/19 16:50 Temperature 39.1 C H Temperature Source Oral Sepsis Recent Fever Within 48 Hours Yes Sepsis New/Unexplained Change in Mental Status No Sepsis Action Taken by Nursing No Action Required Pulse Rate 130 H 127 H Pulse Rate [Finger] Pulse Rate from SpO2 Sensor 127 H Respiratory Rate 20 42 H Respiratory Effort / Characteristics Respiratory Depth Blood Pressure 116/78 98/66 L Blood Pressure [Right Arm] Blood Pressure Mean 90 76 Blood Pressure Mean [Right Arm] Pulse Oximetry 94 88 L 92 Oxygen Delivery Method Room Air Room Air Nasal Cannula Oxygen Flow Rate 2 04/19/19 16:52 04/19/19 16:53 04/19/19 17:00 Temperature Temperature Source Sepsis Recent Fever Within 48 Hours Sepsis New/Unexplained Change in Mental Status Sepsis Action Taken by Nursing Pulse Rate 127 H 121 H Pulse Rate [Finger] 128 H Pulse Rate from SpO2 Sensor 128 H 121 H Respiratory Rate 20 41 H 37 H Respiratory Effort / Characteristics Non-Labored Respiratory Depth Normal Blood Pressure 106/68 Blood Pressure [Right Arm] 98/66 L Blood Pressure Mean 80 Blood Pressure Mean [Right Arm] 76 Pulse Oximetry 92 92 100 Oxygen Delivery Method Room Air Oxygen Flow Rate 04/19/19 17:01 04/19/19 17:04 04/19/19 17:10 Temperature Temperature Source Sepsis Recent Fever Within 48 Hours Sepsis New/Unexplained Change in Mental Status Sepsis Action Taken by Nursing Pulse Rate 121 H 121 H Pulse Rate [Finger] 122 H Pulse Rate from SpO2 Sensor 122 H 121 H Respiratory Rate 38 H 24 23 Respiratory Effort / Characteristics Respiratory Depth Normal Blood Pressure Blood Pressure [Right Arm] 106/68 Blood Pressure Mean Blood Pressure Mean [Right Arm] 80 Pulse Oximetry 100 95 100 Oxygen Delivery Method Nasal Cannula Oxygen Flow Rate 2 04/19/19 17:26 04/19/19 17:27 04/19/19 17:28 Temperature 37.1 C Temperature Source Oral Sepsis Recent Fever Within 48 Hours Sepsis New/Unexplained Change in Mental Status Sepsis Action Taken by Nursing Pulse Rate 128 H 126 H Pulse Rate [Finger] 126 H Pulse Rate from SpO2 Sensor Respiratory Rate 43 H 44 H 24 Respiratory Effort / Characteristics Respiratory Depth Normal Blood Pressure 108/61 Blood Pressure [Right Arm] 108/51 L Blood Pressure Mean 76 Blood Pressure Mean [Right Arm] 70 Pulse Oximetry 99 Oxygen Delivery Method Nasal Cannula Oxygen Flow Rate 2 04/19/19 17:30 04/19/19 17:31 04/19/19 17:40 Temperature Temperature Source Sepsis Recent Fever Within 48 Hours Sepsis New/Unexplained Change in Mental Status Sepsis Action Taken by Nursing Pulse Rate 125 H 125 H 121 H Pulse Rate [Finger] Pulse Rate from SpO2 Sensor Respiratory Rate 41 H 39 H 33 H Respiratory Effort / Characteristics Respiratory Depth Blood Pressure 101/60 Blood Pressure [Right Arm] Blood Pressure Mean 73 Blood Pressure Mean [Right Arm] Pulse Oximetry Oxygen Delivery Method Oxygen Flow Rate 04/19/19 17:45 04/19/19 17:50 04/19/19 18:00 Temperature Temperature Source Sepsis Recent Fever Within 48 Hours Sepsis New/Unexplained Change in Mental Status Sepsis Action Taken by Nursing Pulse Rate 122 H 121 H 119 H Pulse Rate [Finger] Pulse Rate from SpO2 Sensor Respiratory Rate 25 H 28 H 25 H Respiratory Effort / Characteristics Respiratory Depth Blood Pressure 101/67 104/62 Blood Pressure [Right Arm] Blood Pressure Mean 78 76 Blood Pressure Mean [Right Arm] Pulse Oximetry Oxygen Delivery Method Oxygen Flow Rate 04/19/19 18:01 04/19/19 18:10 04/19/19 18:15 Temperature Temperature Source Sepsis Recent Fever Within 48 Hours Sepsis New/Unexplained Change in Mental Status Sepsis Action Taken by Nursing Pulse Rate 118 H 118 H 116 H Pulse Rate [Finger] Pulse Rate from SpO2 Sensor Respiratory Rate 22 22 26 H Respiratory Effort / Characteristics Respiratory Depth Blood Pressure 90/66 L Blood Pressure [Right Arm] Blood Pressure Mean 74 Blood Pressure Mean [Right Arm] Pulse Oximetry Oxygen Delivery Method Oxygen Flow Rate 04/19/19 18:20 04/19/19 18:30 04/19/19 18:31 Temperature Temperature Source Sepsis Recent Fever Within 48 Hours Sepsis New/Unexplained Change in Mental Status Sepsis Action Taken by Nursing Pulse Rate 115 H 117 H 118 H Pulse Rate [Finger] Pulse Rate from SpO2 Sensor Respiratory Rate 33 H Respiratory Effort / Characteristics Respiratory Depth Blood Pressure 94/61 L Blood Pressure [Right Arm] Blood Pressure Mean 72 Blood Pressure Mean [Right Arm] Pulse Oximetry Oxygen Delivery Method Oxygen Flow Rate 04/19/19 19:46 04/19/19 19:48 04/19/19 20:00 Temperature Temperature Source Sepsis Recent Fever Within 48 Hours Sepsis New/Unexplained Change in Mental Status Sepsis Action Taken by Nursing Pulse Rate 115 H 110 H Pulse Rate [Finger] Pulse Rate from SpO2 Sensor Respiratory Rate Respiratory Effort / Characteristics Respiratory Depth Blood Pressure 120/70 106/68 Blood Pressure [Right Arm] Blood Pressure Mean 86 80 Blood Pressure Mean [Right Arm] Pulse Oximetry Oxygen Delivery Method Oxygen Flow Rate 04/19/19 20:15 04/19/19 20:21 04/19/19 20:30 Temperature Temperature Source Sepsis Recent Fever Within 48 Hours Sepsis New/Unexplained Change in Mental Status Sepsis Action Taken by Nursing Pulse Rate 111 H 120 H Pulse Rate [Finger] Pulse Rate from SpO2 Sensor Respiratory Rate Respiratory Effort / Characteristics Respiratory Depth Blood Pressure 106/69 115/89 Blood Pressure [Right Arm] Blood Pressure Mean 81 97 Blood Pressure Mean [Right Arm] Pulse Oximetry Oxygen Delivery Method Oxygen Flow Rate 04/19/19 20:45 04/19/19 21:00 04/19/19 21:15 Temperature Temperature Source Sepsis Recent Fever Within 48 Hours Sepsis New/Unexplained Change in Mental Status Sepsis Action Taken by Nursing Pulse Rate 112 H 114 H Pulse Rate [Finger] Pulse Rate from SpO2 Sensor Respiratory Rate 14 31 H Respiratory Effort / Characteristics Respiratory Depth Blood Pressure 114/79 100/63 103/62 Blood Pressure [Right Arm] Blood Pressure Mean 90 75 75 Blood Pressure Mean [Right Arm] Pulse Oximetry Oxygen Delivery Method Oxygen Flow Rate 04/19/19 21:22 04/19/19 21:30 04/19/19 21:40 Temperature Temperature Source Sepsis Recent Fever Within 48 Hours Sepsis New/Unexplained Change in Mental Status Sepsis Action Taken by Nursing Pulse Rate 114 H 119 H 115 H Pulse Rate [Finger] Pulse Rate from SpO2 Sensor Respiratory Rate 33 H 50 H 20 Respiratory Effort / Characteristics Respiratory Depth Blood Pressure 120/68 97/70 L 120/68 Blood Pressure [Right Arm] Blood Pressure Mean 85 79 Blood Pressure Mean [Right Arm] Pulse Oximetry Oxygen Delivery Method Room Air Oxygen Flow Rate 04/19/19 22:02 04/19/19 22:15 04/19/19 22:30 Temperature Temperature Source Sepsis Recent Fever Within 48 Hours Sepsis New/Unexplained Change in Mental Status Sepsis Action Taken by Nursing Pulse Rate 121 H 113 H 116 H Pulse Rate [Finger] Pulse Rate from SpO2 Sensor Respiratory Rate Respiratory Effort / Characteristics Respiratory Depth Blood Pressure 105/64 96/56 L Blood Pressure [Right Arm] Blood Pressure Mean 77 69 Blood Pressure Mean [Right Arm] Pulse Oximetry Oxygen Delivery Method Oxygen Flow Rate 04/19/19 22:31 04/19/19 22:45 04/19/19 22:55 Temperature Temperature Source Sepsis Recent Fever Within 48 Hours Sepsis New/Unexplained Change in Mental Status Sepsis Action Taken by Nursing Pulse Rate 117 H 117 H Pulse Rate [Finger] Pulse Rate from SpO2 Sensor Respiratory Rate Respiratory Effort / Characteristics Respiratory Depth Blood Pressure Blood Pressure [Right Arm] Blood Pressure Mean Blood Pressure Mean [Right Arm] Pulse Oximetry Oxygen Delivery Method Room Air Oxygen Flow Rate GENERAL: sitting up in bed, pale, ill-appeared, mild distress EYE EXAM: normal conjunctiva, PERRL and EOM's grossly intact OROPHARYNX: no exudate, no erythema, lips, buccal mucosa, and tongue normal and mucous membranes are moist NECK: supple, no nuchal rigidity, no adenopathy, non-tender LUNGS: Clear to auscultation. Normal chest wall mechanics HEART: tachycardic, no murmurs, S1 normal and S2 normal ABDOMEN: 2 port holes in left abdomen with derma-lester in place and bruising, bruising umbilically to left flank, porthole in right mid abdomen which is clean, dry, and intact. acutely tender throughout mid abdomen, abdomen soft, normo-active bowel sounds, no masses, no rebound or guarding. BACK: Back is symmetrical on inspection and there is no deformity, no midline tenderness, no CVA tenderness. SKIN: no rashes and no bruising UPPER EXTREMITIES: upper extremities are grossly normal. LOWER EXTREMITIES: No pitting edema. NEURO EXAM: Normal sensorium, cranial nerves II-XII grossly intact, normal speech, no gross weakness of arms, no gross weakness of legs. Course ED COURSE: Vital signs were reviewed and showed febrile and tachycardic. The patients medical record was reviewed The above diagnostic studies were performed and reviewed. ED treatments and interventions as stated above. 1626: The patient was evaluated in room B12A. A complete history and physical examination was performed. 1849: I discussed the patient's case with Dr. Grullon- [facility] TESTING TECHNICIAN, he will accept the patient for further evaluation. 1954: Upon reevaluation, the patient is resting comfortably. I discussed my findings with the patient and she understands and agrees with the treatment plan. Based on the patients age, coexisting illnesses, exam and lab findings the decision to treat as an inpatient was made. The patient remained stable while under my care. The patient will be evaluated for further management. Administered Medications Ioversol (Optiray 320 100ml) 94 ml IV ONCE PRN PRN Reason: Interaction Checking Stop: 04/23/19 17:19 Last Admin: 04/19/19 17:21 Dose: 94 ml Documented by: [id number] Discontinued Medications Acetaminophen (Tylenol) 1,000 mg PO NOW STA Stop: 04/19/19 16:37 Last Admin: 04/19/19 16:50 Dose: 1,000 mg Documented by: [id number] Hydromorphone HCl (Dilaudid) 0.5 mg IV NOW STA Stop: 04/19/19 16:31 Last Admin: 04/19/19 16:50 Dose: 0.5 mg Documented by: [id number] Hydromorphone HCl (Dilaudid) 0.5 mg IV NOW STA Stop: 04/19/19 20:50 Last Admin: 04/19/19 20:50 Dose: 0.5 mg Documented by: [id number] Piperacillin Sod/Tazobactam Sod (Zosyn) 4.5 gm in 120 mls @ 240 mls/hr IV NOW ONE Stop: 04/19/19 16:59 Last Infusion: 04/19/19 17:22 Dose: 0 mls/hr Documented by: [id number] Admin: 04/19/19 16:50 Dose: 240 mls/hr Documented by: [id number] Sodium Chloride (Nss 1000ml) 2,000 mls @ 999 mls/hr IV .Q2H1M ONE Stop: 04/19/19 18:30 Last Admin: 04/19/19 16:49 Dose: 999 mls/hr Documented by: [id number] Sodium Chloride (Nss 1000ml) 1,000 mls @ 999 mls/hr IV .Q1H1M ONE Stop: 04/19/19 20:18 Last Admin: 04/19/19 19:42 Dose: 999 mls/hr Documented by: [id number] Ondansetron HCl (Zofran) 4 mg IV NOW STA Stop: 04/19/19 16:31 Last Admin: 04/19/19 16:51 Dose: 4 mg Documented by: [id number] Medical Decision Making Differential Diagnosis Differential diagnosis includes etiologies such as sepsis, UTI, pneumonia, metabolic, electrolyte abnormalities, cardiac sources, intracerebral event, toxicologic, neurologic, as well as others were entertained. Medical Records Attestation: I reviewed the patient's medical records. Home Medications Current Medication List: was personally reviewed by me Laboratory Data Attestation: I reviewed the patient's lab results. Result diagrams: 04/19/19 16:34 04/19/19 16:34 Lab Results 04/19/19 04/19/19 04/19/19 Range/Units 16:34 16:34 16:34 WBC 13.50 H (4.8-10.8) K/uL RBC 3.81 L (4.2-5.4) M/uL Hgb 9.7 L (12.0-16.0) g/dL POC Hgb (12.0-16.0) g/dl Hct 28.8 L (37-47) % POC Hct (37-47) % MCV 75.6 L (80-100) fL MCH 25.5 (25-34) pg MCHC 33.7 (32-36) g/dL RDW Std Deviation 42.8 (36.4-46.3) fL RDW Coeff of Mine 15.4 H (11.5-14.5) % Plt Count 353 (130-400) K/uL MPV 10.0 (7.4-10.4) fL Immature Gran % (Auto) 0.4 % Neut % (Auto) 87.9 % Lymph % (Auto) 6.4 % [place] % (Auto) 5.2 % Eos % (Auto) 0.0 % Baso % (Auto) 0.1 % Immature Gran # (Auto) 0.05 H (0.00-0.02) K/uL Neut # (Auto) 11.88 H (1.4-6.5) K/uL Lymph # (Auto) 0.86 L (1.2-3.4) K/uL [place] # (Auto) 0.70 H (0.11-0.59) K/uL Eos # (Auto) 0.00 (0-0.5) K/uL Baso # (Auto) 0.01 (0-0.2) K/uL PT 11.9 (9.0-12.0) Seconds INR 1.2 H (0.9-1.1) APTT 34.3 H (21.0-31.0) Seconds PTT Ratio 1.3 POC Sodium (135-144) mEq/L Sodium 129 L D (136-145) mmol/L POC Potassium (3.3-5.0) mEq/L Potassium 3.5 (3.5-5.1) mmol/L POC Chloride (101-112) mEq/L Chloride 97 L (98-107) mmol/L Carbon Dioxide 21 (21-32) mmol/L POC Total CO2 (24-31) mEq/l Anion Gap 11.0 (3-11) POC Anion Gap (16-25) mmol/L POC BUN (7-18) mg/dl BUN 23 H D (7-18) mg/dl Creatinine 1.28 H D (0.6-1.2) mg/dl POC Creatinine (0.6-1.3) mg/dl Est Cr Clr Drug Dosing 68.0 ml/min Est GFR ( Amer) 60.1 Est GFR (Non-Af Amer) 51.9 BUN/Creatinine Ratio 17.6 (10-20) Glucose 171 H (70-99) mg/dl POC Glucose (70-99) POC Glucose (other) (70-99) mg/dl Lactate (0.4-2.0) mmol/L Calcium 8.0 L (8.5-10.1) mg/dl POC Ioniz Calcium Kourtney (1.12-1.32) mmol/l Total Bilirubin 1.0 D (0.2-1) mg/dl AST 16 (15-37) U/L ALT 21 (12-78) U/L Alkaline Phosphatase 74 (45-117) U/L Total Protein 6.6 (6.4-8.2) gm/dl Albumin 2.6 L (3.4-5.0) gm/dl Globulin 4.0 (2.5-4.0) gm/dl Albumin/Globulin Ratio 0.7 L (0.9-2) Urine Color Urine Appearance (Clear) Urine pH (4.5-7.5) Ur Specific [place] (1.000-1.030) Urine Protein (Negative) Urine Glucose (UA) (Negative) Urine Ketones (Negative) Urine Blood (Negative) Urine Nitrite (Negative) Urine Bilirubin (Negative) Urine Urobilinogen (Negative) Ur Leukocyte Esterase (Negative) Urine RBC (0-4) /hpf Urine WBC (0-5) /hpf Ur Epithelial Cells (0-5) /lpf Urine Bacteria (Negative) Blood Type Antibody Screen Crossmatch 04/19/19 04/19/19 04/19/19 Range/Units 16:34 16:39 16:51 WBC (4.8-10.8) K/uL RBC (4.2-5.4) M/uL Hgb (12.0-16.0) g/dL POC Hgb 9.5 L (12.0-16.0) g/dl Hct (37-47) % POC Hct 28 L (37-47) % MCV (80-100) fL MCH (25-34) pg MCHC (32-36) g/dL RDW Std Deviation (36.4-46.3) fL RDW Coeff of Mine (11.5-14.5) % Plt Count (130-400) K/uL MPV (7.4-10.4) fL Immature Gran % (Auto) % Neut % (Auto) % Lymph % (Auto) % [place] % (Auto) % Eos % (Auto) % Baso % (Auto) % Immature Gran # (Auto) (0.00-0.02) K/uL Neut # (Auto) (1.4-6.5) K/uL Lymph # (Auto) (1.2-3.4) K/uL [place] # (Auto) (0.11-0.59) K/uL Eos # (Auto) (0-0.5) K/uL Baso # (Auto) (0-0.2) K/uL PT (9.0-12.0) Seconds INR (0.9-1.1) APTT (21.0-31.0) Seconds PTT Ratio POC Sodium 128 L (135-144) mEq/L Sodium (136-145) mmol/L POC Potassium 3.5 (3.3-5.0) mEq/L Potassium (3.5-5.1) mmol/L POC Chloride 96 L (101-112) mEq/L Chloride (98-107) mmol/L Carbon Dioxide (21-32) mmol/L POC Total CO2 21 L (24-31) mEq/l Anion Gap (3-11) POC Anion Gap 16.0 (16-25) mmol/L POC BUN 20 H (7-18) mg/dl BUN (7-18) mg/dl Creatinine (0.6-1.2) mg/dl POC Creatinine 1.3 (0.6-1.3) mg/dl Est Cr Clr Drug Dosing ml/min Est GFR ( Amer) Est GFR (Non-Af Amer) BUN/Creatinine Ratio (10-20) Glucose (70-99) mg/dl POC Glucose (70-99) POC Glucose (other) 173 H (70-99) mg/dl Lactate 3.3 H* (0.4-2.0) mmol/L Calcium (8.5-10.1) mg/dl POC Ioniz Calcium Kourtney 1.08 L (1.12-1.32) mmol/l Total Bilirubin (0.2-1) mg/dl AST (15-37) U/L ALT (12-78) U/L Alkaline Phosphatase (45-117) U/L Total Protein (6.4-8.2) gm/dl Albumin (3.4-5.0) gm/dl Globulin (2.5-4.0) gm/dl Albumin/Globulin Ratio (0.9-2) Urine Color Urine Appearance (Clear) Urine pH (4.5-7.5) Ur Specific [place] (1.000-1.030) Urine Protein (Negative) Urine Glucose (UA) (Negative) Urine Ketones (Negative) Urine Blood (Negative) Urine Nitrite (Negative) Urine Bilirubin (Negative) Urine Urobilinogen (Negative) Ur Leukocyte Esterase (Negative) Urine RBC (0-4) /hpf Urine WBC (0-5) /hpf Ur Epithelial Cells (0-5) /lpf Urine Bacteria (Negative) Blood Type O Positive Antibody Screen NEGATIVE Crossmatch See Detail 04/19/19 04/19/19 04/19/19 Range/Units 19:00 19:17 19:34 WBC (4.8-10.8) K/uL RBC (4.2-5.4) M/uL Hgb (12.0-16.0) g/dL POC Hgb (12.0-16.0) g/dl Hct (37-47) % POC Hct (37-47) % MCV (80-100) fL MCH (25-34) pg MCHC (32-36) g/dL RDW Std Deviation (36.4-46.3) fL RDW Coeff of Mine (11.5-14.5) % Plt Count (130-400) K/uL MPV (7.4-10.4) fL Immature Gran % (Auto) % Neut % (Auto) % Lymph % (Auto) % [place] % (Auto) % Eos % (Auto) % Baso % (Auto) % Immature Gran # (Auto) (0.00-0.02) K/uL Neut # (Auto) (1.4-6.5) K/uL Lymph # (Auto) (1.2-3.4) K/uL [place] # (Auto) (0.11-0.59) K/uL Eos # (Auto) (0-0.5) K/uL Baso # (Auto) (0-0.2) K/uL PT (9.0-12.0) Seconds INR (0.9-1.1) APTT (21.0-31.0) Seconds PTT Ratio POC Sodium (135-144) mEq/L Sodium (136-145) mmol/L POC Potassium (3.3-5.0) mEq/L Potassium (3.5-5.1) mmol/L POC Chloride (101-112) mEq/L Chloride (98-107) mmol/L Carbon Dioxide (21-32) mmol/L POC Total CO2 (24-31) mEq/l Anion Gap (3-11) POC Anion Gap (16-25) mmol/L POC BUN (7-18) mg/dl BUN (7-18) mg/dl Creatinine (0.6-1.2) mg/dl POC Creatinine (0.6-1.3) mg/dl Est Cr Clr Drug Dosing ml/min Est GFR ( Amer) Est GFR (Non-Af Amer) BUN/Creatinine Ratio (10-20) Glucose (70-99) mg/dl POC Glucose 153 H (70-99) POC Glucose (other) (70-99) mg/dl Lactate 1.8 (0.4-2.0) mmol/L Calcium (8.5-10.1) mg/dl POC Ioniz Calcium Kourtney (1.12-1.32) mmol/l Total Bilirubin (0.2-1) mg/dl AST (15-37) U/L ALT (12-78) U/L Alkaline Phosphatase (45-117) U/L Total Protein (6.4-8.2) gm/dl Albumin (3.4-5.0) gm/dl Globulin (2.5-4.0) gm/dl Albumin/Globulin Ratio (0.9-2) Urine Color Yellow Urine Appearance Clear (Clear) Urine pH 5.0 (4.5-7.5) Ur Specific [place] 1.030 (1.000-1.030) Urine Protein Negative (Negative) Urine Glucose (UA) Negative (Negative) Urine Ketones Negative (Negative) Urine Blood 3+ H (Negative) Urine Nitrite Negative (Negative) Urine Bilirubin Negative (Negative) Urine Urobilinogen Negative (Negative) Ur Leukocyte Esterase Trace H (Negative) Urine RBC >30 H (0-4) /hpf Urine WBC 5-10 H (0-5) /hpf Ur Epithelial Cells >30 H (0-5) /lpf Urine Bacteria 1+ H (Negative) Blood Type Antibody Screen Crossmatch 04/19/19 Range/Units 23:18 WBC (4.8-10.8) K/uL RBC (4.2-5.4) M/uL Hgb (12.0-16.0) g/dL POC Hgb (12.0-16.0) g/dl Hct (37-47) % POC Hct (37-47) % MCV (80-100) fL MCH (25-34) pg MCHC (32-36) g/dL RDW Std Deviation (36.4-46.3) fL RDW Coeff of Mine (11.5-14.5) % Plt Count (130-400) K/uL MPV (7.4-10.4) fL Immature Gran % (Auto) % Neut % (Auto) % Lymph % (Auto) % [place] % (Auto) % Eos % (Auto) % Baso % (Auto) % Immature Gran # (Auto) (0.00-0.02) K/uL Neut # (Auto) (1.4-6.5) K/uL Lymph # (Auto) (1.2-3.4) K/uL [place] # (Auto) (0.11-0.59) K/uL Eos # (Auto) (0-0.5) K/uL Baso # (Auto) (0-0.2) K/uL PT (9.0-12.0) Seconds INR (0.9-1.1) APTT (21.0-31.0) Seconds PTT Ratio POC Sodium (135-144) mEq/L Sodium (136-145) mmol/L POC Potassium (3.3-5.0) mEq/L Potassium (3.5-5.1) mmol/L POC Chloride (101-112) mEq/L Chloride (98-107) mmol/L Carbon Dioxide (21-32) mmol/L POC Total CO2 (24-31) mEq/l Anion Gap (3-11) POC Anion Gap (16-25) mmol/L POC BUN (7-18) mg/dl BUN (7-18) mg/dl Creatinine (0.6-1.2) mg/dl POC Creatinine (0.6-1.3) mg/dl Est Cr Clr Drug Dosing ml/min Est GFR ( Amer) Est GFR (Non-Af Amer) BUN/Creatinine Ratio (10-20) Glucose (70-99) mg/dl POC Glucose 135 H (70-99) POC Glucose (other) (70-99) mg/dl Lactate (0.4-2.0) mmol/L Calcium (8.5-10.1) mg/dl POC Ioniz Calcium Kourtney (1.12-1.32) mmol/l Total Bilirubin (0.2-1) mg/dl AST (15-37) U/L ALT (12-78) U/L Alkaline Phosphatase (45-117) U/L Total Protein (6.4-8.2) gm/dl Albumin (3.4-5.0) gm/dl Globulin (2.5-4.0) gm/dl Albumin/Globulin Ratio (0.9-2) Urine Color Urine Appearance (Clear) Urine pH (4.5-7.5) Ur Specific [place] (1.000-1.030) Urine Protein (Negative) Urine Glucose (UA) (Negative) Urine Ketones (Negative) Urine Blood (Negative) Urine Nitrite (Negative) Urine Bilirubin (Negative) Urine Urobilinogen (Negative) Ur Leukocyte Esterase (Negative) Urine RBC (0-4) /hpf Urine WBC (0-5) /hpf Ur Epithelial Cells (0-5) /lpf Urine Bacteria (Negative) Blood Type Antibody Screen Crossmatch Imaging Data Radiologist's Impression: Radiology results as stated below per my review and the radiologist's interpretation: SINGLE VIEW CHEST CLINICAL HISTORY: Sepsis. FINDINGS: An AP, portable, upright chest radiograph is compared to study dated 11/26/2012. The examination is degraded by portable technique, large body habitus, and patient rotation. The cardiomediastinal silhouette is unremarkable. There are low lung volumes with bibasilar atelectasis. No airspace consolidation or large pleural effusion is identified. Apparent lucency beneath the right hemidiaphragm likely corresponds to asymmetry of the anterior and posterior aspect of the diaphragm. No pneumothorax is seen. The bony thorax is grossly intact. IMPRESSION: 1. Low lung volumes with no acute cardiopulmonary abnormality. 2. Apparent lucency underlying the right hemidiaphragm likely corresponds to asymmetry of the anterior/posterior diaphragm. Intraperitoneal free air is considered much less likely. A lateral chest radiograph would be confirmatory. Electronically signed by: Tanmay Rodriguez M.D. 04/19/2019 5:03 PM ABDOMEN AND PELVIS CT WITH IV CONTRAST CT DOSE: 1571.66 mGy.cm HISTORY: Sepsis post op TECHNIQUE: Multiaxial CT images of the abdomen and pelvis were performed foll owing the use of intravenous contrast. A dose lowering technique was utilized adhering to the principles of ALARA. COMPARISON STUDY: None. FINDINGS: Patchy bilateral lower lobe densities. There is a moderate amount of pneumoperitoneum. Trace perihepatic ascites. The gallbladder is distended. The liver, spleen, right adrenal gland, pancreas, and right kidney are unremarkable. No hydronephrosis. A 1.3 cm exophytic hypodense lesion within the lower pole the left kidney. This likely represents a cyst. There is a 3.5 cm indeterminate left adrenal gland nodule/mass. No retroperitoneal lymphadenopathy. Small fat and fluid containing infraumbilical hernias. Gas within the bladder. No bladder wall thickening. Postoperative changes consistent with recent hysterectomy. Partially loculated gas and fluid collection seen within the deep pelvis abutting the vaginal cuff and extending into the left side of the pelvis to the left paracolic gutter which measures approximately 13 x 3.7 cm. There is also a small amount of fluid within the right lower quadrant which is not loculated. There is an additional small partially loculated gas and fluid collection within the left side the abdomen on image 344 measuring 4.7 cm. No evidence for bowel obstruction. Inflammatory change seen throughout the mesentery. Multiple colonic diverticula. Focal thickening within the mid to distal descending colon which could be reactive to the adjacent partially loculated fluid collection. Mild thickening and inflammatory change at the vaginal cuff. Small amount of fluid along the left side of the mesentery. IMPRESSION: 1. Status post hysterectomy. There is a moderate amount of pneumoperitoneum which is nonspecific but favors postoperative change. 2. There are 2 partially loculated gas and fluid collections seen within the deep pelvis abutting the vaginal cuff and along the left side the abdomen as described above. This could represent developing abscesses. 3. Diffuse mesenteric edema/inflammatory change. There is also a small amount of fluid along the right side the abdomen, within the mesentery, and perihepatic locations. This could be due to postoperative change or an infectious process given the patient's history of sepsis. 4. Focal thickening within the mid to distal descending colon which is likely reactive to the adjacent partially loculated dominant gas and fluid collection. However, a superimposed diverticulitis/colitis could also have a similar appearance would be difficult to exclude. 5. A 3.5 cm left adrenal gland nodule/mass. Follow-up nonemergent dedicated adrenal MRI is recommended for further evaluation. 6. Patchy right basilar densities are nonspecific and may represent atelectasis or pneumonia. 8. Distended gallbladder. 9. Additional findings as described above. Electronically signed by: Jeffery Slaughter M.D. 04/19/2019 6:43 PM ECG Data Attestation: I personally reviewed and interpreted this ECG as follows: Indication: abdominal pain Rate (beats per minute): 123 Rhythm: sinus tachycardia Findings: + nonspecific-ST abn; no PVC Blood Pressure Blood Pressure Findings: Normal blood pressure Blood Pressure Disposition: did not require urgent referral MDM Narrative Patient is a 39-year-old female recently postop for complete hysterectomy presents the ER for worsening abdominal pain associated with fevers. Upon presentation she is found to be febrile with a temperature of 39 and a heart rate in the 140s. Sepsis alert was called. 2 IVs were established and blood work was obtained. Labs show a leukocytosis of 13,000. Hemoglobin down to 9.7 from 10. INR was normal. BMP with mild hyponatremia 129. Creatinine was at 1.28. Lactate was elevated at 3. This was repeated 4 hours later and normalized. Patient received 3 L IV fluids. She received IV Zosyn. I discussed with surgeon who evaluated her bedside as well as the hospitalist. S he was admitted for sepsis secondary to postop infection with abscesses in her abdomen. Impression & Plan Sepsis, Abdominal abscess, Diabetes, Status post hysterectomy with oophorectomy, Abdominal pain Critical Care Time Critical Care Time: Yes Total Critical Care Time: 35 I have personally spent 35 minutes of critical care time in the direct management of this patient. This includes bedside care, interpretation of diagnostic studies, and testing, discussion with consultants, patient, and family members, and other required patient management activities. This 35 minutes is in excess of all separately billable procedures. Discharge Plan Visit Data Chief Complaint: Abdominal Pain Stated Complaint: BELLY PAIN, HEART RACING ED Provider: Betito Simms Discharge Problem: Sepsis, Abdominal abscess, Diabetes, Status post hysterectomy with oophorecto my, Abdominal pain Patient Disposition: Being Evaluated by Hospitalist Discharge Instructions Interventions: ED Discharge Assessment Last Done: 04/19/19 22:55 Forms Stand Alone Forms: Call Back Authorization, My [facility] Prescriptions Prescriptions: No Action metformin 500 mg Tablet 500 mg PO BID RF: 0 quetiapine [Seroquel] 200 mg Tablet 200 mg PO HS RF: 0 omeprazole 40 mg Capsule,Delayed Release(Dr/Ec) 40 mg PO QAM RF: 0 paroxetine HCl [Paxil] 40 mg Tablet 40 mg PO HS RF: 0 topiramate 100 mg Tablet 100 mg PO HS RF: 0 fluticasone propionate [Flonase Allergy Relief] 50 mcg/actuation [place],Suspension 1 spray INTRANASAL QAM RF: 0 levothyroxine 75 mcg Capsule 75 mcg PO QAM RF: 0 oxycodone-acetaminophen [Percocet] 5-325 mg tablet 1 tab PO Q4H PRN (Reason: pain) Qty: 14 RF: 0 docusate sodium [Colace] 100 mg capsule 100 mg PO BID Qty: 30 RF: 1 ibuprofen 600 mg tablet 600 mg PO Q6H PRN (Reason: Fever Or Pain) RF: 0 simethicone 80 mg tablet,chewable 80 mg PO PCHS PRN (Reason: GAS RELIEF) RF: 0 acetaminophen 325 mg capsule 650 mg PO Q6H PRN (Reason: Fever Or Pain) RF: 0 oxycodone 5 mg tablet 5 mg PO Q6H PRN (Reason: pain) Qty: 14 RF: 0 ondansetron HCl [Zofran] 4 mg tablet 4 mg PO Q6H Qty: 10 RF: 0 Referrals Referrals: Ron Mccracken MD [Primary Care Provider] - The scribe's documentation has been prepared under my direction and personally reviewed by me in its entirety. I confirm that the note above accurately reflects all work, treatment, procedures, and medical decision making performed by me.
[2019-04-19] MEDS ORDERED: PIPERACILLIN/TAZOBACTAM 3.375 GM in DEXTROSE 5% 100 ML IV SCH (23:37)
[2019-04-19] MEDS ORDERED: ACETAMINOPHEN 325 MG TAB PO PRN (23:37)
[2019-04-19] MEDS ORDERED: SIMETHICONE 80 MG CHEW PO PRN (23:37)
[2019-04-19] MEDS ORDERED: GLUCAGON FOR INJ 1 MG VIAL IM PRN (23:45)
[2019-04-19] MEDS ORDERED: GLUCOSE 10 TABS/TUBE PO PRN (23:45)
[2019-04-19] MEDS ORDERED: IBUPROFEN 600 MG TAB PO PRN (23:45)
[2019-04-19] MEDS ORDERED: DEXTROSE 50% 50 ML SYRINGE IV PRN (23:45)
[2019-04-19] MEDS ORDERED: CARBOHYDRATES FOR HYPOGLYCEMIA PO PRN (23:45)
[2019-04-19] MEDS ORDERED: GLUCOSE 40% GEL 15 GM TUBE PO PRN (23:45)
[2019-04-20] MEDS ORDERED: PARoxetine HCl 20 MG TAB PO ONE
[2019-04-20] MEDS: OXYCODONE/ACETAMINOPHEN 5mg/325mg TAB PO PRN ×4 (00:10→15:26)
[2019-04-20] MEDS: LACTATED RINGER'S 1,000 ML IV SCH ×3 (00:13→17:55)
[2019-04-20] MEDS: PIPERACILLIN/TAZOBACTAM 4.5 GM in DEXTROSE 5% 100 ML IV SCH ×3 (00:16→15:36)
[2019-04-20] MEDS ORDERED: Nursing to Pharmacy Communication ONE (00:55)
[2019-04-20] MEDS ORDERED: QUETIAPINE FUMARATE 200 MG TAB PO ONE (02:00)
[2019-04-20] MEDS ORDERED: SODIUM CHLORIDE 0.9% 1000ML 1,000 ML IV ONE (05:33)
[2019-04-20] MEDS: ONDANSETRON INJ 2 MG/ML 2 ML VIAL IV PRN (05:42)
[2019-04-20] MEDS ORDERED: SIMETHICONE 80 MG CHEW PO ONE (05:44)
--- NOTE | 2019-04-20 05:48 | Progress Note ---
Date of Service April 20, 2019 Assessment & Plan (1) Sepsis: S: called to bedside by nursing due to concern for pallor and persistently elevated heart rate. Pt ambulating to the commode upon my arrival. Endorses nausea and bloating. Does not endorse chest pain, no syncope. Endorses thirst. O: vitals show elevated HR GEN: NAD, pallor CV: tachycardic but regular, no m/r/g ABD: soft, no guarding. Normoactive BS. +ecchymoses (which per nursing have been there since admission) A/P: Sinus tachycardia 2/2 sepsis, stable -I ordered 1L bolus NSS -simethicone now -encouraged PO hydration Alejandra Johnson MD Sepsis acute organ dysfunction status: unspecified Sepsis type: sepsis due to unspecified organism Qualified Code(s): A41.9 - Sepsis, unspecified organism Results & Data Vital Signs (Past 12 Hours) Vital Signs Temp Pulse Pulse Resp BP BP Pulse Ox 04/20/19 03:00 37 C 121 H 20 121/78 91 04/20/19 00:54 36.6 C 122 H 30 H 129/86 96 04/20/19 00:38 121 H 04/19/19 22:45 117 H 04/19/19 22:31 117 H 04/19/19 22:30 116 H 96/56 L 04/19/19 22:15 113 H 04/19/19 22:02 121 H 105/64 04/19/19 21:40 115 H 20 120/68 04/19/19 21:30 119 H 50 H 97/70 L 04/19/19 21:22 114 H 33 H 120/68 04/19/19 21:15 114 H 31 H 103/62 04/19/19 21:00 112 H 14 100/63 04/19/19 20:45 114/79 04/19/19 20:30 120 H 115/89 04/19/19 20:21 111 H 04/19/19 20:15 106/69 04/19/19 20:00 106/68 04/19/19 19:48 110 H 120/70 04/19/19 19:46 115 H 04/19/19 18:31 118 H 04/19/19 18:30 117 H 94/61 L 04/19/19 18:20 115 H 33 H 04/19/19 18:15 116 H 26 H 90/66 L 04/19/19 18:10 118 H 22 04/19/19 18:01 118 H 22 04/19/19 18:00 119 H 25 H 104/62 04/19/19 17:50 121 H 28 H 04/19/19 17:45 122 H 25 H 101/67
[2019-04-20 06:06] LABS: Basophils # (auto) 0.01 K/uL (0-0.2); Basophils % (auto) 0.1 %; Eosinophils # (auto) 0.06 K/uL (0-0.5); Eosinophils % (auto) 0.4 %; Hematocrit (blood only) 27.4 % (37-47); Hemoglobin 9.1 g/dL (12.0-16.0); Immature Granulocytes # (auto) 0.06 K/uL (0.00-0.02); Immature Granulocytes % (auto) 0.4 %; Lymphocytes # (auto) 0.76 K/uL (1.2-3.4); Lymphocytes % (auto) 5.1 %; Mean Corpuscular Hemoglobin 24.9 pg (25-34); Mean Corpuscular Hgb Conc 33.2 g/dL (32-36); Mean Corpuscular Volume 75.1 fL (80-100); Monocytes # (auto) 1.03 K/uL (0.11-0.59); Platelet Count 355 K/uL (130-400); RDW Coefficient of Variation 15.3 % (11.5-14.5); Red Blood Count 3.65 M/uL (4.2-5.4); White Blood Count 14.82 K/uL (4.8-10.8)
[2019-04-20] MEDS ORDERED: LEVOTHYROXINE SODIUM 75 MCG TABLET PO SCH (06:30)
[2019-04-20] MEDS ORDERED: METFORMIN HCL 500 MG TAB PO SCH (08:00)
--- NOTE | 2019-04-20 08:01 | Gynecologic Progress Note ---
Date of Service April 20, 2019 Assessment & Plan (1) Abdominal abscess: Patient currently managed by Hospitalist and ID. Agree with recommendations for IV antibiotics and IV hydration. Will continue to f/u recommendations as noted. (2) Sepsis: Currently on IV antibiotics. Slight increase in WBC. Will continue to monitor. (3) Status post hysterectomy with oophorectomy: H/H 9.7 (04/19/19) and 9.1 (04/20/19). Passing flatus and urinating without difficulty. Hematoma at the umbilicus to pubic symphysis and at the LLQ incision. Marked with pen to ensure no continuation of spread. Will continue to monitor. Subjective s/p Extensive laparoscopic lysis of adhesions, enterolysis, total laparoscopic hysterectomy, left salpingo-oophorectomy and cystoscopy on 04/16/19. Patient was discharged home on POD #1. Patient returned to the ED on the evening of POD#1 with N/V and tachycardia. Patient was subsequently discharge home to f/u with PCP. Patient was unable to get an appointment with PCP and presented to an urgent care center that recommended return back to the ED due to pallor. Patient was admitted for sepsis. ID consulted and Patient currently on antibiotics. CT scan with possible abscess. Negative CXR. Negative for DVT. Today, Patient reports feeling tired and having gas. Reports flatus and bowel movements. Minimal vaginal spotting (to be expected with dissolvable sutures in the vagina). Reports urinating without difficulty. Endorses heart racing but denies chest pain. Denies N/V or SOB. Denies pelvic pain. Review of Systems Cardiovascular: + palpitations Gastrointestinal: + bloating Physical Exam Constitutional: + diaphoretic and + lethargic Respiratory: normal respiratory effort, lungs clear to auscultation Cardiovascular: Rate/Rhythm: regular rate and + tachycardic Gastrointestinal (Abdomen): Inspection/Auscultation: abdomen normal to inspection, normal bowel sounds and + abdominal wall ecchymosis Incisions C/D/I. Ecchymoses at the umbilicus to the pubic symphysis. Ecchymoses at the LLQ incision Results & Data Vital Signs (Past 12 Hours) Vital Signs Temp Pulse Pulse Resp BP BP Pulse Ox 04/20/19 07:53 36.9 C 120 H 17 96/65 L 89 L 04/20/19 07:16 123 H 04/20/19 03:00 37 C 121 H 20 121/78 91 04/20/19 00:54 36.6 C 122 H 30 H 129/86 96 04/20/19 00:38 121 H 04/19/19 22:45 117 H 04/19/19 22:31 117 H 04/19/19 22:30 116 H 96/56 L 04/19/19 22:15 113 H 04/19/19 22:02 121 H 105/64 04/19/19 21:40 115 H 20 120/68 04/19/19 21:30 119 H 50 H 97/70 L 04/19/19 21:22 114 H 33 H 120/68 04/19/19 21:15 114 H 31 H 103/62 04/19/19 21:00 112 H 14 100/63 04/19/19 20:45 114/79 04/19/19 20:30 120 H 115/89 04/19/19 20:21 111 H 04/19/19 20:15 106/69 04/19/19 20:00 106/68 (1) Sepsis Sepsis acute organ dysfunction status: unspecified Sepsis type: sepsis due to unspecified organism Qualified Code(s): A41.9 - Sepsis, unspecified organism : Sepsis Qualifiers: Sepsis type: sepsis due to unspecified organism Sepsis acute organ dysfunction status: unspecified Qualified Code(s): A41.9 - Sepsis, unspecified organism Diabetes Qualifiers: Diabetes mellitus type: other specified (including RADHA) Diabetes mellitus exterminator insulin use: unspecified exterminator insulin use status Diabetes mellitus complication status: with other specified complication Qualified Code(s): E13.69 - Other specified diabetes mellitus with other specified complication Abdominal pain Qualifiers: Abdominal location: unspecified location Qualified Code(s): R10.9 - Unspecified abdominal pain
[2019-04-20] MEDS: DOCUSATE SODIUM 100 MG CAP PO SCH ×2 (08:07→21:56)
[2019-04-20] MEDS: INSULIN ASPART 100 UNITS/ML 3 ML PEN SC SCH ×4 (08:13→22:22)
[2019-04-20 09:59] LABS: Albumin Level 2.1 gm/dl (3.4-5.0); BUN Creatinine Ratio 26.1 (10-20); Calcium 7.7 mg/dl (8.5-10.1); Creatinine Clr Calc Pharmacy 123.8 ml/min; Est GFR (African American) 120.6; Potassium 3.4 mmol/L (3.5-5.1)
[2019-04-20 10:04] LABS: Albumin Globulin Ratio 0.6 (0.9-2); Bilirubin,Total 0.7 mg/dl (0.2-1); Globulin 3.7 gm/dl (2.5-4.0); Total Protein 5.8 gm/dl (6.4-8.2)
[2019-04-20] MEDS ORDERED: SODIUM CHLORIDE 0.65% NA SOLN 45 ML (OCEAN) ONE (14:09)
--- NOTE | 2019-04-20 17:41 | XRay Report ---
TWO VIEW CHEST CLINICAL HISTORY: Intraperitoneal free air. FINDINGS: PA and lateral chest radiographs are compared to study dated 04/19/2019. The cardiomediastin al silhouette is unremarkable. There are small pleural effusions with bibasilar consolidation. There is no pneumothorax. The bony thorax appears intact. Intraperitoneal free air is seen below the diaphr agm. IMPRESSION: 1. There are small pleural effusions with bibasilar consolidation. 2. Intraperitoneal free air is seen below the diaphragm. Electronically signed by: Tanmay Rodriguez M.D. 04/20/2019 5:40 PM
[2019-04-20 17:51] LABS: Basophils # (auto) 0.02 K/uL (0-0.2); Basophils % (auto) 0.1 %; Eosinophils # (auto) 0.09 K/uL (0-0.5); Eosinophils % (auto) 0.5 %; Hematocrit (blood only) 25.7 % (37-47); Hemoglobin 8.6 g/dL (12.0-16.0); Immature Granulocytes % (auto) 0.6 %; Lymphocytes # (auto) 0.85 K/uL (1.2-3.4); Lymphocytes % (auto) 4.7 %; Mean Corpuscular Hemoglobin 24.9 pg (25-34); Mean Corpuscular Hgb Conc 33.5 g/dL (32-36); Mean Corpuscular Volume 74.3 fL (80-100); Mean Platelet Volume 9.4 fL (7.4-10.4); Monocytes # (auto) 1.44 K/uL (0.11-0.59); Neutrophils # (auto) 15.61 K/uL (1.4-6.5); Neutrophils % (auto) 86.1 %; Platelet Count 389 K/uL (130-400); RDW Coefficient of Variation 15.4 % (11.5-14.5); RDW Standard Deviation 41.7 fL (36.4-46.3); Red Blood Count 3.46 M/uL (4.2-5.4); White Blood Count 18.11 K/uL (4.8-10.8)
--- NOTE | 2019-04-20 18:36 | Family Medicine Consultation ---
Date of Consultation April 20, 2019 History of Present Illness Reason for Consultation: Patient is a 39 yo woman with a PMHx of diabetes mellitus on post operative day 4 of laproscopic total hysterectomy with L salpino oophrectomy who was admitted on 04/19 for generalized fatigue, diffuse abdominal pain, nausea/vomiting. An abdominopelvic CT scan Attending Physician: Venkatesh Grullon MD Allergies Allergy/AdvReac Type Severity Reaction Status Date / Time morphine AdvReac Intermediate NAUSEA Verified 04/19/19 20:41 VOMITING Home Medications Home Medications Medication Instructions Recorded Confirmed Type fluticasone propionate [Flonase 1 spray INTRANASAL QAM 04/02/19 04/19/19 History Allergy Relief] levothyroxine 75 mcg PO QAM 04/02/19 04/19/19 History metformin 500 mg PO BID 04/02/19 04/19/19 History omeprazole 40 mg PO QAM 04/02/19 04/19/19 History paroxetine HCl [Paxil] 40 mg PO HS 04/02/19 04/19/19 History quetiapine [Seroquel] 200 mg PO HS 04/02/19 04/19/19 History topiramate 100 mg PO HS 04/02/19 04/19/19 History docusate sodium [Colace] 100 mg PO BID #30 cap 04/16/19 04/19/19 Rx oxycodone-acetaminophen [Percocet] 1 tab PO Q4H PRN #14 tab 04/16/19 04/19/19 Rx acetaminophen 650 mg PO Q6H PRN 04/18/19 04/19/19 History ibuprofen 600 mg PO Q6H PRN 04/18/19 04/19/19 History ondansetron HCl [Zofran] 4 mg PO Q6H #10 tab 04/18/19 04/19/19 Rx oxycodone 5 mg PO Q6H PRN #14 tab 04/18/19 04/19/19 Rx simethicone 80 mg PO PCHS PRN 04/18/19 04/19/19 History Patient History Medical History Depression Diabetes mellitus, type 2 NIDDM GERD (gastroesophageal reflux disease) controlled Hypothyroidism Obesity Surgical History H/O oophorectomy RIGHT History of hysterectomy History of laparotomy OVARIAN CYSTECTOMY Family History Grandmother (Maternal) Family history of diabetes mellitus Grandmother (Paternal) Family history of diabetes mellitus Grandfather (Paternal) Family history of esophageal cancer Social History Preferred Language: [place] 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: Effective Customer Support Assistant Required: No Beliefs That Will Affect Care: None marital status: Current Living Situation: Spouse current occupational status: employed Feels Safe at Home: Yes Safety Concerns: Feels Safe At This Time Smoking Status: Never smoker Second Hand Exposure: No ; Hx Alcohol Use: No Hx Substance Use: No Dental Care, Regularly: Yes Seatbelt Use: always Sunscreen Use: Yes Results & Data Vital Signs (Past 12 Hours) Vital Signs Temp Pulse Pulse Resp BP Pulse Ox 04/20/19 16:24 36.8 C 120 H 16 137/83 92 04/20/19 07:53 36.9 C 120 H 17 96/65 L 89 L 04/20/19 07:16 123 H PG Care Time/CCT Total # of Minutes Spent Total Time Spent with Patient: Total time spent is greater than 50% in coordination of care (as documented) at patient's floor/unit and/or counseling patient:
--- NOTE | 2019-04-20 18:43 | Family Medicine Progress Note ---
Date of Service April 20, 2019 Assessment & Plan (1) Sepsis: Sepsis SIRS criteria met (HR > 90bpm and WBC >12,000) and infectious etiology identified (post op fluid collection seen on abdominal CT) -patient likely suffering from post-op hysterectomy abscess formation Patient already on broad-spectrum antibioticsZosyn and has received 4.5 L of bolus fluid in addition to maintenance fluids Lactate improved from 3.3 to 1.8 following fluid resuscitation - Given visualization of loculated mass with gas and fluid levels >12cm in diameter, along with ensuring sepsis, recommend surgical or percutaneous drainage. - After [facility] attending discussed case with [facility] OBGYN attending: CT scan of abdomen/pelvis will be ordered to further characterize fluid collections in pelvis. general surgery expressed concern for potential bowel perforation. In the event of a bowel perforation, gen surg will debride in OR immediately. If no perforation is visualized patient would be a candidate for IR percutaneous drainage. In the event of the latter, patient will need transported to [facility]. -CT chest with PE protocol ordered to rule out PE (given patient is tachycardic and had recent immobilization with surgery) -Keep patient n.p.o. except for ice chips, sips and meds in anticipation of possible surgical intervention. Status post hysterectomy Continue pain control with oxycodone/acetaminophen prn Hypothyroidism Continue home dose Synthroid Non-insulin dependent diabetes mellitus Sliding scale while in hospital Mood disorder Continue home dose paroxetine, Seroquel, topiramate DVT prophylaxis: bilateral SCDs CODE STATUS: full FEN/GI: n.p.o. except for chips, sips, meds Dispo: jane/surg floor Supervising Physician Co-Signing Physician Notes Patient seen and examined with PGY-1 Dr. Sexton and PGY-3 Dr. Ramires. Agree with history, exam findings, assessment and plan of care as outlined. In brief, Ms. Woody is a 39 year old female with hx of depression/anxiety and diabetes who recently underwent laproscopic hysterectomy with extensive lysis of adhesions admitted for sepsis secondary to pelvic abscess. She is tachycardic and pale. She appears ill. She has a superficial hematoma anteriorly and on the left lower abdomen. She is able to walk without dizziness or imbalance. Abdomen is soft and minimally tender on exam today. Labs reviewed. 1. sepsis secondary to pelvic abscess s/p lap hyst and SHARA. She has gotten >4 L of fluids. Continue mIVFs. Continue Zosyn. Discussed case with DR. Hutchins ([facility]). Obtaining CT A/P with oral contrast to assess for perforation. General surgery consulted. Requesting images be sent to [facility] for review as well. If there is no evidence of perf, can consider perctuatenous drainage, but would need to be transferred. If not able to drain percutaneously, may need to consider OR. If she continues to be tachy and/or hypotensive overnight, recommend transfer to ICU. 2. DM. SSI. 3. Depression.anxiety. COntinuing home medications. Subjective *This is a consultation progress note* Patient is sitting upright; she reports having a wave of pain come across her after passing gas. mother is present at bedside. Patient reports feeling anxious Physical Exam Constitutional: WD/WN, vitals as above + ill appearing and + overweight shaking on exam Eyes: + anicteric sclerae ENMT: external ear and nose normal, oropharynx normal Neck: trachea midline, no thyromegaly Respiratory: normal respiratory effort, lungs clear to auscultation Auscultation: no crackles, no rales and no wheezes Cardiovascular: Heart Sounds: normal S1, normal S2 and + murmur (functional ) Gastrointestinal (Abdomen): Inspection/Auscultation: normal bowel sounds, + abdominal wall ecchymosis (confined to demarcations placed earlier today by Dr. Hutchins), + significant pannus, + abdominal surgical scar and + abdominal surgical incision Percussion/Palpation: + abdomen tender (mild tenderness over suprapubic area) Skin: no rashes, warm and dry Neurologic: awake Psychiatric: A+Ox3, euthymic affect Results & Data Vital Signs (Past 12 Hours) Vital Signs Temp Pulse Pulse Resp BP Pulse Ox 04/20/19 16:24 36.8 C 120 H 16 137/83 92 04/20/19 16:00 110 H 04/20/19 07:53 36.9 C 120 H 17 96/65 L 89 L 04/20/19 07:16 123 H Laboratory Results 04/20/19 04/20/19 04/20/19 Range/Units 17:41 15:51 11:33 WBC 18.11 H (4.8-10.8) K/uL RBC 3.46 L (4.2-5.4) M/uL Hgb 8.6 L 8.9 L (12.0-16.0) g/dL Hct 25.7 L (37-47) % MCV 74.3 L (80-100) fL MCH 24.9 L (25-34) pg MCHC 33.5 (32-36) g/dL RDW Std Deviation 41.7 (36.4-46.3) fL RDW Coeff of Mine 15.4 H (11.5-14.5) % Plt Count 389 (130-400) K/uL MPV 9.4 (7.4-10.4) fL Immature Gran % (Auto) 0.6 % Neut % (Auto) 86.1 % Lymph % (Auto) 4.7 % [place] % (Auto) 8.0 % Eos % (Auto) 0.5 % Baso % (Auto) 0.1 % Immature Gran # (Auto) 0.10 H (0.00-0.02) K/uL Neut # (Auto) 15.61 H (1.4-6.5) K/uL Lymph # (Auto) 0.85 L (1.2-3.4) K/uL [place] # (Auto) 1.44 H (0.11-0.59) K/uL Eos # (Auto) 0.09 (0-0.5) K/uL Baso # (Auto) 0.02 (0-0.2) K/uL Sodium (136-145) mmol/L Potassium (3.5-5.1) mmol/L Chloride (98-107) mmol/L Carbon Dioxide (21-32) mmol/L Anion Gap (3-11) BUN (7-18) mg/dl Creatinine (0.6-1.2) mg/dl Est Cr Clr Drug Dosing ml/min Est GFR ( Amer) Est GFR (Non-Af Amer) BUN/Creatinine Ratio (10-20) Glucose (70-99) mg/dl POC Glucose 196 H (70-99) Lactate (0.4-2.0) mmol/L Calcium (8.5-10.1) mg/dl Total Bilirubin (0.2-1) mg/dl AST (15-37) U/L ALT (12-78) U/L Alkaline Phosphatase (45-117) U/L Total Protein (6.4-8.2) gm/dl Albumin (3.4-5.0) gm/dl Globulin (2.5-4.0) gm/dl Albumin/Globulin Ratio (0.9-2) Urine Color Urine Appearance (Clear) Urine pH (4.5-7.5) Ur Specific [place] (1.000-1.030) Urine Protein (Negative) Urine Glucose (UA) (Negative) Urine Ketones (Negative) Urine Blood (Negative) Urine Nitrite (Negative) Urine Bilirubin (Negative) Urine Urobilinogen (Negative) Ur Leukocyte Esterase (Negative) Urine RBC (0-4) /hpf Urine WBC (0-5) /hpf Ur Epithelial Cells (0-5) /lpf Urine Bacteria (Negative) 04/20/19 04/20/19 04/20/19 Range/Units 09:22 09:10 07:51 WBC (4.8-10.8) K/uL RBC (4.2-5.4) M/uL Hgb (12.0-16.0) g/dL Hct (37-47) % MCV (80-100) fL MCH (25-34) pg MCHC (32-36) g/dL RDW Std Deviation (36.4-46.3) fL RDW Coeff of Mine (11.5-14.5) % Plt Count (130-400) K/uL MPV (7.4-10.4) fL Immature Gran % (Auto) % Neut % (Auto) % Lymph % (Auto) % [place] % (Auto) % Eos % (Auto) % Baso % (Auto) % Immature Gran # (Auto) (0.00-0.02) K/uL Neut # (Auto) (1.4-6.5) K/uL Lymph # (Auto) (1.2-3.4) K/uL [place] # (Auto) (0.11-0.59) K/uL Eos # (Auto) (0-0.5) K/uL Baso # (Auto) (0-0.2) K/uL Sodium 132 L (136-145) mmol/L Potassium 3.4 L (3.5-5.1) mmol/L Chloride 104 (98-107) mmol/L Carbon Dioxide 20 L (21-32) mmol/L Anion Gap 8.0 (3-11) BUN 19 H (7-18) mg/dl Creatinine 0.72 D (0.6-1.2) mg/dl Est Cr Clr Drug Dosing 123.8 ml/min Est GFR ( Amer) 120.6 Est GFR (Non-Af Amer) 104.0 BUN/Creatinine Ratio 26.1 H (10-20) Glucose 147 H (70-99) mg/dl POC Glucose 156 H (70-99) Lactate 1.6 (0.4-2.0) mmol/L Calcium 7.7 L (8.5-10.1) mg/dl Total Bilirubin 0.7 (0.2-1) mg/dl AST 11 L (15-37) U/L ALT 16 (12-78) U/L Alkaline Phosphatase 76 (45-117) U/L Total Protein 5.8 L (6.4-8.2) gm/dl Albumin 2.1 L (3.4-5.0) gm/dl Globulin 3.7 (2.5-4.0) gm/dl Albumin/Globulin Ratio 0.6 L (0.9-2) Urine Color Urine Appearance (Clear) Urine pH (4.5-7.5) Ur Specific [place] (1.000-1.030) Urine Protein (Negative) Urine Glucose (UA) (Negative) Urine Ketones (Negative) Urine Blood (Negative) Urine Nitrite (Negative) Urine Bilirubin (Negative) Urine Urobilinogen (Negative) Ur Leukocyte Esterase (Negative) Urine RBC (0-4) /hpf Urine WBC (0-5) /hpf Ur Epithelial Cells (0-5) /lpf Urine Bacteria (Negative) 04/20/19 04/20/19 04/19/19 Range/Units 05:51 05:17 23:18 WBC 14.82 H (4.8-10.8) K/uL RBC 3.65 L (4.2-5.4) M/uL Hgb 9.1 L (12.0-16.0) g/dL Hct 27.4 L (37-47) % MCV 75.1 L (80-100) fL MCH 24.9 L (25-34) pg MCHC 33.2 (32-36) g/dL RDW Std Deviation 42.0 (36.4-46.3) fL RDW Coeff of Mine 15.3 H (11.5-14.5) % Plt Count 355 (130-400) K/uL MPV 10.0 (7.4-10.4) fL Immature Gran % (Auto) 0.4 % Neut % (Auto) 87.0 % Lymph % (Auto) 5.1 % [place] % (Auto) 7.0 % Eos % (Auto) 0.4 % Baso % (Auto) 0.1 % Immature Gran # (Auto) 0.06 H (0.00-0.02) K/uL Neut # (Auto) 12.90 H (1.4-6.5) K/uL Lymph # (Auto) 0.76 L (1.2-3.4) K/uL [place] # (Auto) 1.03 H (0.11-0.59) K/uL Eos # (Auto) 0.06 (0-0.5) K/uL Baso # (Auto) 0.01 (0-0.2) K/uL Sodium (136-145) mmol/L Potassium (3.5-5.1) mmol/L Chloride (98-107) mmol/L Carbon Dioxide (21-32) mmol/L Anion Gap (3-11) BUN (7-18) mg/dl Creatinine (0.6-1.2) mg/dl Est Cr Clr Drug Dosing ml/min Est GFR ( Amer) Est GFR (Non-Af Amer) BUN/Creatinine Ratio (10-20) Glucose (70-99) mg/dl POC Glucose 160 H 135 H (70-99) Lactate (0.4-2.0) mmol/L Calcium (8.5-10.1) mg/dl Total Bilirubin (0.2-1) mg/dl AST (15-37) U/L ALT (12-78) U/L Alkaline Phosphatase (45-117) U/L Total Protein (6.4-8.2) gm/dl Albumin (3.4-5.0) gm/dl Globulin (2.5-4.0) gm/dl Albumin/Globulin Ratio (0.9-2) Urine Color Urine Appearance (Clear) Urine pH (4.5-7.5) Ur Specific [place] (1.000-1.030) Urine Protein (Negative) Urine Glucose (UA) (Negative) Urine Ketones (Negative) Urine Blood (Negative) Urine Nitrite (Negative) Urine Bilirubin (Negative) Urine Urobilinogen (Negative) Ur Leukocyte Esterase (Negative) Urine RBC (0-4) /hpf Urine WBC (0-5) /hpf Ur Epithelial Cells (0-5) /lpf Urine Bacteria (Negative) 04/19/19 04/19/19 04/19/19 Range/Units 19:34 19:17 19:00 WBC (4.8-10.8) K/uL RBC (4.2-5.4) M/uL Hgb (12.0-16.0) g/dL Hct (37-47) % MCV (80-100) fL MCH (25-34) pg MCHC (32-36) g/dL RDW Std Deviation (36.4-46.3) fL RDW Coeff of Mine (11.5-14.5) % Plt Count (130-400) K/uL MPV (7.4-10.4) fL Immature Gran % (Auto) % Neut % (Auto) % Lymph % (Auto) % [place] % (Auto) % Eos % (Auto) % Baso % (Auto) % Immature Gran # (Auto) (0.00-0.02) K/uL Neut # (Auto) (1.4-6.5) K/uL Lymph # (Auto) (1.2-3.4) K/uL [place] # (Auto) (0.11-0.59) K/uL Eos # (Auto) (0-0.5) K/uL Baso # (Auto) (0-0.2) K/uL Sodium (136-145) mmol/L Potassium (3.5-5.1) mmol/L Chloride (98-107) mmol/L Carbon Dioxide (21-32) mmol/L Anion Gap (3-11) BUN (7-18) mg/dl Creatinine (0.6-1.2) mg/dl Est Cr Clr Drug Dosing ml/min Est GFR ( Amer) Est GFR (Non-Af Amer) BUN/Creatinine Ratio (10-20) Glucose (70-99) mg/dl POC Glucose 153 H (70-99) Lactate 1.8 (0.4-2.0) mmol/L Calcium (8.5-10.1) mg/dl Total Bilirubin (0.2-1) mg/dl AST (15-37) U/L ALT (12-78) U/L Alkaline Phosphatase (45-117) U/L Total Protein (6.4-8.2) gm/dl Albumin (3.4-5.0) gm/dl Globulin (2.5-4.0) gm/dl Albumin/Globulin Ratio (0.9-2) Urine Color Yellow Urine Appearance Clear (Clear) Urine pH 5.0 (4.5-7.5) Ur Specific [place] 1.030 (1.000-1.030) Urine Protein Negative (Negative) Urine Glucose (UA) Negative (Negative) Urine Ketones Negative (Negative) Urine Blood 3+ H (Negative) Urine Nitrite Negative (Negative) Urine Bilirubin Negative (Negative) Urine Urobilinogen Negative (Negative) Ur Leukocyte Esterase Trace H (Negative) Urine RBC >30 H (0-4) /hpf Urine WBC 5-10 H (0-5) /hpf Ur Epithelial Cells >30 H (0-5) /lpf Urine Bacteria 1+ H (Negative) PG Care Time/CCT Total # of Minutes Spent Total Time Spent with Patient: Total time spent is greater than 50% in coordination of care (as documented) at patient's floor/unit and/or counseling patient: Resident Activity Tracking Resident Involvement: Resident Care Provided Care Provided: Adult Hospital Medicine (1) Sepsis Sepsis acute organ dysfunction status: unspecified Sepsis type: sepsis due to unspecified organism Qualified Code(s): A41.9 - Sepsis, unspecified organism
--- NOTE | 2019-04-20 20:42 | Gynecologic Progress Note ---
Date of Service April 20, 2019 Assessment & Plan (1) Abdominal abscess: Patient currently managed by Hospitalist and ID. Agree with recommendations for IV antibiotics and IV hydration. Plan for CT Chest to r/o PE. Plan to repeat CT Abd/Pelvis with IV, Oral and Rectal contrast for further evaluation of bowels. (2) Sepsis: Currently on IV antibiotics. Slight increase in WBC. Will continue to monitor. (3) Status post hysterectomy with oophorectomy: H/H 9.7 (04/19/19) and 9.1 (04/20/19). Repeat Hemoglobin this evening 8.8. Passing flatus and urinating without difficulty. Hematoma at the umbilicus to pubic symphysis and at the LLQ incision. Marked with pen to ensure no continuation of spread. Will continue to monitor. Subjective Patient seen and examined. Patient now c/o SOB. Currently with 2L Nasal canula. +Flatus. Urinating without difficulty. Tolerating clear liquids. Review of Systems Respiratory: + dyspnea Cardiovascular: + palpitations Physical Exam Constitutional: Pallor improved Respiratory: normal respiratory effort Cardiovascular: Rate/Rhythm: regular rate and + tachycardic Gastrointestinal (Abdomen): Inspection/Auscultation: normal bowel sounds Incisions: C/DI. Ecchymosis still present with no expansion from previous marking. Appropriately tender to palpation Results & Data Vital Signs (Past 12 Hours) Vital Signs Temp Pulse Pulse Resp BP Pulse Ox 04/20/19 20:03 37.2 C 120 H 28 H 130/74 92 04/20/19 16:24 36.8 C 120 H 16 137/83 92 04/20/19 16:00 110 H (1) Sepsis Sepsis acute organ dysfunction status: unspecified Sepsis type: sepsis due to unspecified organism Qualified Code(s): A41.9 - Sepsis, unspecified organism : Sepsis Qualifiers: Sepsis type: sepsis due to unspecified organism Sepsis acute organ dysfunction status: unspecified Qualified Code(s): A41.9 - Sepsis, unspecified organism Diabetes Qualifiers: Diabetes mellitus type: other specified (including RADHA) Diabetes mellitus manager terminal insulin use: unspecified longterm insulin use status Diabetes mellitus complication status: with other specified complication Qualified Code(s): E13.69 - Other specified diabetes mellitus with other specified complication Abdominal pain Qualifiers: Abdominal location: unspecified location Qualified Code(s): R10.9 - Unspecified abdominal pain
[2019-04-20] MEDS ORDERED: QUETIAPINE FUMARATE 200 MG TAB PO SCH (21:00)
[2019-04-20] MEDS ORDERED: TOPIRAMATE 100 MG TAB PO SCH (21:00)
[2019-04-20] MEDS ORDERED: PARoxetine HCl 20 MG TAB PO SCH (21:00)
[2019-04-20] MEDS ORDERED: OPTIRAY 320 125ml IV PRN (21:40)
--- NOTE | 2019-04-20 21:51 | CT Scan Report ---
CT angio chest PE protocol CLINICAL HISTORY: 39 years-old Female presenting with postoperative shortness of breath, clinical con cern for pulmonary bolus. TECHNIQUE: Multidetector CT angiography of the chest was performed after administration of intravenou s contrast. 3-D volumetric and/or maximum intensity projection (MIP) images were subsequently reconst ructed for review. IV contrast: 115 mL of Optiray 320. One or more dose lowering techniques were used consistent with the principles of ALARA (as low as reasonably achievable), including automatic expos ure control, mA or kV adjustment to individual patient size, and/or use of iterative reconstruction. COMPARISON: Chest x-ray performed earlier the same day. CT DOSE (mGy.cm): The estimated cumulative dose is 1775.24 mGycm. FINDINGS: Spectrographic Analyst topogram: Unremarkable. Pulmonary vasculature: The study is suboptimal for the assessment of the pulmonary vascular tree secondary to timing of the contrast bolus and respiratory motion artifact. Allowing for limited image quality, no central fillin g defect to suggest pulmonary embolus. Main pulmonary artery mildly enlarged measuring 3.3 cm in diam eter. No flattening of the interventricular septum. No intracardiac filling defect. No reflux of cont rast into the hepatic veins. Remaining chest: Soft tissues: Normal thyroid and thoracic inlet. Several prominent mediastinal lymph nodes. Normal ao rta. . Normal heart size. Moderate right pleural effusion, which is simple appearing. No left pleural effusion or pericardial effusion. Trace pneumoperitoneum. Small perihepatic ascites. Lungs and airways: Moderate right pneumothorax. Central airways patent. Pulmonary arteries enlarged r elative to adjacent bronchi. Extensive volume loss and consolidation in the lower lobes greater on th e right. No other focal infiltrate apart from extensive lower lobe predominant atelectasis. Musculoskeletal: Normal osseous structures. IMPRESSION: 1. Moderate right hydropneumothorax. No convincing evidence of tension at this time. Decompression i s still recommended. 2. No gross evidence of pulmonary embolus allowing for limitations related to timing of the contrast bolus and respiratory motion artifact. 3. Pulmonary artery hypertension suspected. 4. Small perihepatic ascites and trace pneumoperitoneum. This may be postsurgical. The report will be called/faxed according to standard departmental protocol for a critical finding. Electronically signed by: Jonah Jones M.D. 04/20/2019 9:49 PM
--- NOTE | 2019-04-20 22:08 | CT Scan Report ---
CT abd pelvis oral and IV con CLINICAL HISTORY: 39 years-old Female presenting with post op, sepsis. TECHNIQUE: Multidetector CT of the abdomen and pelvis was performed after the administration of oral and intravenous contrast. IV contrast: 115 mL of Optiray 320. One or more dose lowering techniques we re used consistent with the principles of ALARA (as low as reasonably achievable), including automati c exposure control, mA or kV adjustment to individual patient size, and/or use of iterative reconstru ction. COMPARISON: 04/19/2019. CT DOSE (mGy.cm): The estimated cumulative dose is 1775.24. FINDINGS: Cigar Head Piercer topogram: Unremarkable. Lung bases: Normal heart size. Trace pericardial effusion. Small to moderate right pleural effusion. Moderate right pneumothorax. Extensive basilar atelectasis greater on the right. Liver: Normal morphology. Density suggestive of hepatic steatosis. No focal lesion. Patent hepatic va sculature. Biliary: No intrahepatic or extrahepatic biliary ductal dilatation. The gallbladder is distended poss ibly on a physiologic basis. The appearance is unchanged from prior. No convincing evidence of wall t hickening or pericholecystic fluid or inflammatory change. Pancreas: Mild parenchymal atrophy. Spleen: Normal. Adrenal glands: 3.5 cm nodule in the lateral limb of the left adrenal gland, indeterminate on this co ntrast-enhanced exam though possibly a benign adenoma. Right adrenal gland normal. Kidneys and ureters: Exophytic cyst arising from the lower pole the left kidney. Otherwise normal chester al parenchyma. No nephrolithiasis or hydronephrosis. Ureters nondistended. Bladder: Urinary bladder contains intraluminal gas likely representing recent catheterization. Pelvic organs: Uterus surgically absent. Bowel: A rectal tube is in place with the balloon inflated in a somewhat low position within the anor ectal junction. Rectal descent may be present. Contrast has been injected into the rectal tube, which opacifies proximally to the level of the distal sigmoid colon. There is continuity of the rectosigmo id junction with the left pelvic sidewall collection, which demonstrates layering contrast material a nd gas. This tracks to the vaginal cuff. The mid to proximal sigmoid colon is not opacified with cont rast and contains a mild stool burden. Oral contrast was also administered in an antegrade fashion, w hich extends to the ascending colon. Mild distention of several loops of small bowel without evidence of a bowel obstruction. Bowel wall thickening is noted in the left midabdomen. Peritoneal cavity: Small ascites. Fluid collection in the anterior left mid abdomen measuring 5.4 cm similar to prior exam. This does not contain oral contrast to suggest continuity with adjacent inflam ed loops of small bowel. Multiple sites of interloop fluid. Peritoneal enhancement and thickening swetha dent. Oral contrast and gas containing left superior pelvic sidewall collection measuring over 12 cm in diameter as well as layering unopacified fluid or debris. Lymph nodes: No enlarged lymph nodes in the abdomen or pelvis. Vasculature: Aorta and IVC patent and normal in caliber. Abdominal wall: Gas and edema noted in the anterior abdominal wall. The gas is likely postsurgical. S everal small herniations also contain ascitic fluid. Skin thickening and subcutaneous fat infiltratio n is again in the anterior abdominal wall. Musculoskeletal: Degenerative changes of the spine. IMPRESSION: 1. Multiple collections are again evident, the dominant collection along the left superior pelvis wi th gross continuity of the rectosigmoid junction evidenced by oral contrast within the collection. Ad ditional smaller more superior and anterior collection without no convincing evidence of continuity w ith bowel given the absence of oral contrast. 2. Peritonitis with ascites and multifocal interloop fluid. 3. Inflamed small bowel in the left mid abdomen likely secondarily reactive. 4. Post surgical changes of hysterectomy. 5. Moderate right hydropneumothorax new from prior. The gas within the right pleural space may repre sent dissected pneumoperitoneum allowing other possible etiologies. Decompression to be considered. 6. Additional findings as above. The report will be called/faxed according to standard departmental protocol for a critical finding. Electronically signed by: Jonah Jones M.D. 04/20/2019 10:05 PM
[2019-04-20] MEDS ORDERED: MIDAZOLAM HCL 1 MG/ML 2ML VIAL ONE (22:53)
[2019-04-20] MEDS ORDERED: fentaNYL citrate 100 MCG/2 ML VIAL ONE (22:54)
[2019-04-20] MEDS ORDERED: KETAMINE HCL INJ 50 MG/ML 10 ML VIAL ONE ×2 (22:58→23:00)
[2019-04-20] MEDS ORDERED: ALBUMIN HUMAN 5% 12.5 GM/250 ML VIAL IV ONE (23:02)
--- NOTE | 2019-04-20 23:15 | Anesthesiology Consultation ---
Date of Service April 20, 2019 Assessment & Plan (1) Encounter for pre-operative examination: Chart Review Chart Review: Acceptable Risk for Surgery and Patient NOT seen in Pre Admission Testing Consults Requested none History Surgery Operation Date: 04/20/19 23:30 Proposed Procedures p Bowel Resection, Ileostomy - Stanley Zimmerman MD Height/Weight Height: 5 ft 5 in Weight: 105.2 kg Allergies Allergy/AdvReac Type Severity Reaction Status Date / Time morphine AdvReac Intermediate NAUSEA Verified 04/19/19 20:41 VOMITING Medications Home Medications Medication Instructions Recorded Confirmed Last Taken fluticasone propionate [Flonase 1 spray INTRANASAL QAM 04/02/19 04/19/19 04/17/19 Allergy Relief] levothyroxine 75 mcg PO QAM 04/02/19 04/19/19 04/17/19 metformin 500 mg PO BID 04/02/19 04/19/19 04/17/19 omeprazole 40 mg PO QAM 04/02/19 04/19/19 04/17/19 paroxetine HCl [Paxil] 40 mg PO HS 04/02/19 04/19/19 04/17/19 quetiapine [Seroquel] 200 mg PO HS 04/02/19 04/19/19 04/17/19 topiramate 100 mg PO HS 04/02/19 04/19/19 04/17/19 docusate sodium [Colace] 100 mg PO BID #30 cap 04/16/19 04/19/19 04/17/19 oxycodone-acetaminophen [Percocet] 1 tab PO Q4H PRN #14 tab 04/16/19 04/19/19 Unknown acetaminophen 650 mg PO Q6H PRN 04/18/19 04/19/19 Unknown ibuprofen 600 mg PO Q6H PRN 04/18/19 04/19/19 Unknown ondansetron HCl [Zofran] 4 mg PO Q6H #10 tab 04/18/19 04/19/19 Unknown oxycodone 5 mg PO Q6H PRN #14 tab 04/18/19 04/19/19 Unknown simethicone 80 mg PO PCHS PRN 04/18/19 04/19/19 Unknown Active Medications Generic Name Dose Route Start Last Admin Trade Name Freq PRN Reason Stop Dose Admin Docusate Sodium 100 mg 04/20/19 09:00 04/20/19 21:56 Colace PO 05/20/19 08:59 100 mg BID JANICE Administration Lactated Ringer's 1,000 mls @ 175 mls/hr 04/19/19 20:15 04/20/19 17:55 Lr IV 05/19/19 20:14 175 mls/hr .[id number] JANICE Administration Piperacillin Sod/Tazobactam 120 mls @ 30 mls/hr 04/20/19 00:00 04/20/19 20:04 Sod 4.5 gm/ Dextrose IV 04/22/19 00:00 Infused Q8H JANICE Infusion Protocol Insulin Aspart 0 units 04/20/19 07:30 04/20/19 22:22 Novolog Flexpen SC 05/20/19 07:29 Not Given ACHS JANICE Ioversol 94 ml 04/19/19 17:20 04/19/19 17:21 Optiray 320 100ml IV 04/23/19 17:19 94 ml ONCE PRN Administration Interaction Checking Ioversol 115 ml 04/20/19 21:40 04/20/19 21:41 Optiray 320 125ml IV 04/24/19 21:39 115 ml ONCE PRN Administration Interaction Checking Levothyroxine Sodium 75 mcg 04/20/19 06:30 04/20/19 05:42 Synthroid PO 05/20/19 06:29 75 mcg DAILYBB JANICE Administration Ondansetron HCl 4 mg 04/19/19 20:01 04/20/19 05:42 Zofran IV 05/19/19 20:00 4 mg Q6H PRN Administration Nausea And Vomiting Oxycodone/Acetaminophen 1 tab 04/19/19 20:50 04/20/19 15:26 Percocet 5mg/325mg PO 05/03/19 20:49 1 tab Q4H PRN Administration Pain Paroxetine HCl 40 mg 04/20/19 21:00 04/20/19 21:55 Paxil PO 05/20/19 20:59 40 mg HS JANICE Administration Quetiapine Fumarate 200 mg 04/20/19 21:00 04/20/19 21:56 Seroquel PO 05/20/19 20:59 200 mg HS JANICE Administration Topiramate 100 mg 04/20/19 21:00 04/20/19 21:56 Topamax PO 05/20/19 20:59 100 mg HS JANICE Administration Past Medical History Medical History Depression Diabetes mellitus, type 2 NIDDM GERD (gastroesophageal reflux disease) controlled Hypothyroidism Obesity Past Family History Family History Grandmother (Maternal) Family history of diabetes mellitus Grandmother (Paternal) Family history of diabetes mellitus Grandfather (Paternal) Family history of esophageal cancer Past Surgical History Surgical History H/O oophorectomy RIGHT History of hysterectomy History of laparotomy OVARIAN CYSTECTOMY Past Anesthesia History No Hx of Anesthesia Complications and No Family Hx of Anesthesia Complications History of PONV No Hx of PONV and No Hx of Motion Sickness Social History Smoking Status: Never smoker Hx Alcohol Use: No Hx Substance Use: No Physical Exam Vital Signs Last Vital Signs Temp 37.2 C 04/20/19 20:03 Pulse 120 H 04/20/19 20:03 Resp 28 H 04/20/19 20:03 BP 130/74 04/20/19 20:03 Pulse Ox 92 04/20/19 20:03 Testing Laboratory Results 04/20/19 17:41 04/20/19 09:10 PT 11.9 Seconds (9.0-12.0) 04/19/19 16:34 INR 1.2 (0.9-1.1) H 04/19/19 16:34 APTT 34.3 Seconds (21.0-31.0) H 04/19/19 16:34 Urine Color Yellow 04/19/19 19:00 Urine Appearance Clear (Clear) 04/19/19 19:00 Urine pH 5.0 (4.5-7.5) 04/19/19 19:00 Ur Specific [place] 1.030 (1.000-1.030) 04/19/19 19:00 Urine Protein Negative (Negative) 04/19/19 19:00 Urine Glucose (UA) Negative (Negative) 04/19/19 19:00 Urine Ketones Negative (Negative) 04/19/19 19:00 Urine Nitrite Negative (Negative) 04/19/19 19:00 Ur Leukocyte Esterase Trace (Negative) H 04/19/19 19:00 Urine RBC >30 /hpf (0-4) H 04/19/19 19:00 Urine WBC 5-10 /hpf (0-5) H 04/19/19 19:00 Ur Epithelial Cells >30 /lpf (0-5) H 04/19/19 19:00 Blood Type O Positive 04/19/19 16:39 Antibody Screen NEGATIVE 04/19/19 16:39 04/19/19 16:39 Aerobic Blood Culture - Preliminary Blood No growth in Aerobic bottle after 24 hours. Anaerobic Blood Culture - Preliminary No growth in Anaerobic bottle after 24 hours. 04/19/19 16:34 Aerobic Blood Culture - Preliminary Blood No growth in Aerobic bottle after 24 hours. Anaerobic Blood Culture - Preliminary No growth in Anaerobic bottle after 24 hours. 04/19/19 19:00 Urine Culture - Preliminary Urine,Clean Catch Gram negative bacilli 04/20/19 04/20/19 04/20/19 21:54 17:14 11:33 POC Glucose 111 H 128 H 196 H Electrocardiogram Date: 04/19/19 Findings: + ST @ (123) Sinus tachycardia Possible Left atrial enlargement Cannot rule out Inferior infarct , age undetermined Abnormal ECG When compared with ECG of 08-APR-2019 14:54, Vent. rate has increased BY 44 BPM Nonspecific T wave abnormality now evident in Inferior leads Nonspecific T wave abnormality now evident in Anterior leads Confirmed by Khris Lr ([id number]) on 04/20/2019 11:39:48 A Other Testing IMPRESSION: 1. Moderate right hydropneumothorax. No convincing evidence of tension at this time. Decompression is still recommended. 2. No gross evidence of pulmonary embolus allowing for limitations related to timing of the contrast bolus and respiratory motion artifact. 3. Pulmonary artery hypertension suspected. 4. Small perihepatic ascites and trace pneumoperitoneum. This may be postsurgical. The report will be called/faxed according to standard departmental protocol for a critical finding.
--- NOTE | 2019-04-20 23:16 | Surgery Consultation ---
Date of Consultation April 20, 2019 Assessment & Plan (1) Abdominal abscess: This patient has GI contrast outside of the bowel within a fluid collection in the pelvis. This appears to be contiguous with the rectosigmoid area. She will need exploratory laparotomy with lavage and cleanout of the pelvis with closure if the opening can be identified and probable formation of ileostomy although there is a possibility of needing to perform a colostomy. I explained all this to the patient. She will also need placement of a right thoracostomy tube and explained that as well. I discussed the possible complications of this procedure and she had questions that I answered. She has signed a consent form. History of Present Illness Reason for Consultation: Abnormal CT scan Requesting Physician: Pam Hutchins MD Attending Physician: Venkatesh Grullon MD History of Present Illness This is a 39-year-old female who underwent hysterectomy following extensive lysis of dense adhesions 4 days ago. She was doing well and discharged on postoperative day #1 however return to the emergency room with weakness. She was found to be mildly tachycardic. She was having mild abdominal pain. Her white count was mildly elevated. She was discharged in the emergency room but then returned the next day which was 2 days ago and required admission. She had a CT scan that showed 2 fluid collections as well as pneumoperitoneum. She had some mild shortness of breath. Today she underwent a an additional CAT scan with oral and rectal contrast that showed contrast within 1 of the pelvic collections. She also had a CTA of the chest that showed no evidence of pulmonary emboli however she had a moderate sized hydropneumothorax. She has mild abdominal discomfort but has been passing her bowels in fact had a bowel movement tonight after the CAT scan. She been passing flatus up until 2 days ago. She had no melena or hematochezia. She had some mild nausea. There is no vomiting. Allergies Allergy/AdvReac Type Severity Reaction Status Date / Time morphine AdvReac Intermediate NAUSEA Verified 04/19/19 20:41 VOMITING Home Medications Home Medications Medication Instructions Recorded Confirmed Type fluticasone propionate [Flonase 1 spray INTRANASAL QAM 04/02/19 04/19/19 History Allergy Relief] levothyroxine 75 mcg PO QAM 04/02/19 04/19/19 History metformin 500 mg PO BID 04/02/19 04/19/19 History omeprazole 40 mg PO QAM 04/02/19 04/19/19 History paroxetine HCl [Paxil] 40 mg PO HS 04/02/19 04/19/19 History quetiapine [Seroquel] 200 mg PO HS 04/02/19 04/19/19 History topiramate 100 mg PO HS 04/02/19 04/19/19 History docusate sodium [Colace] 100 mg PO BID #30 cap 04/16/19 04/19/19 Rx oxycodone-acetaminophen [Percocet] 1 tab PO Q4H PRN #14 tab 04/16/19 04/19/19 Rx acetaminophen 650 mg PO Q6H PRN 04/18/19 04/19/19 History ibuprofen 600 mg PO Q6H PRN 04/18/19 04/19/19 History ondansetron HCl [Zofran] 4 mg PO Q6H #10 tab 04/18/19 04/19/19 Rx oxycodone 5 mg PO Q6H PRN #14 tab 04/18/19 04/19/19 Rx simethicone 80 mg PO PCHS PRN 04/18/19 04/19/19 History Patient History Medical History Depression Diabetes mellitus, type 2 NIDDM GERD (gastroesophageal reflux disease) controlled Hypothyroidism Obesity Surgical History H/O oophorectomy RIGHT History of hysterectomy History of laparotomy OVARIAN CYSTECTOMY Family History Grandmother (Maternal) Family history of diabetes mellitus Grandmother (Paternal) Family history of diabetes mellitus Grandfather (Paternal) Family history of esophageal cancer Social History Preferred Language: Norwegian 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: Effective Supervisor Dog License Officer Required: No Beliefs That Will Affect Care: None marital status: Current Living Situation: Spouse current occupational status: employed Feels Safe at Home: Yes Safety Concerns: Feels Safe At This Time Smoking Status: Never smoker Second Hand Exposure: No ; Hx Alcohol Use: No Hx Substance Use: No Dental Care, Regularly: Yes Seatbelt Use: always Sunscreen Use: Yes Physical Exam Constitutional: + obese; no acute distress Respiratory: no cough Auscultation: lungs clear to auscultation bilaterally Cardiovascular: Rate/Rhythm: regular rate, regular rhythm and + tachycardic Gastrointestinal (Abdomen): Inspection/Auscultation: + abdominal surgical incision (Clean, dry and intact) and + hypoactive bowel sounds; abdomen not distended Percussion/Palpation: + abdomen tender (Mild tenderness in the lower abdomen) Ecchymosis of the lower abdominal wall that has not progressed beyond what was marked this morning Skin: no rashes, warm and dry Lymphatic: no cervical lymphadenopathy Results & Data Vital Signs (Past 12 Hours) Vital Signs Temp Pulse Pulse Resp BP Pulse Ox 04/20/19 20:03 37.2 C 120 H 28 H 130/74 92 04/20/19 16:24 36.8 C 120 H 16 137/83 92 04/20/19 16:00 110 H Laboratory Results 04/20/19 04/20/19 04/20/19 Range/Units 21:54 17:41 17:14 WBC 18.11 H (4.8-10.8) K/uL RBC 3.46 L (4.2-5.4) M/uL Hgb 8.6 L (12.0-16.0) g/dL Hct 25.7 L (37-47) % MCV 74.3 L (80-100) fL MCH 24.9 L (25-34) pg MCHC 33.5 (32-36) g/dL RDW Std Deviation 41.7 (36.4-46.3) fL RDW Coeff of Mine 15.4 H (11.5-14.5) % Plt Count 389 (130-400) K/uL MPV 9.4 (7.4-10.4) fL Immature Gran % (Auto) 0.6 % Neut % (Auto) 86.1 % Lymph % (Auto) 4.7 % [place] % (Auto) 8.0 % Eos % (Auto) 0.5 % Baso % (Auto) 0.1 % Immature Gran # (Auto) 0.10 H (0.00-0.02) K/uL Neut # (Auto) 15.61 H (1.4-6.5) K/uL Lymph # (Auto) 0.85 L (1.2-3.4) K/uL [place] # (Auto) 1.44 H (0.11-0.59) K/uL Eos # (Auto) 0.09 (0-0.5) K/uL Baso # (Auto) 0.02 (0-0.2) K/uL Sodium (136-145) mmol/L Potassium (3.5-5.1) mmol/L Chloride (98-107) mmol/L Carbon Dioxide (21-32) mmol/L Anion Gap (3-11) BUN (7-18) mg/dl Creatinine (0.6-1.2) mg/dl Est Cr Clr Drug Dosing ml/min Est GFR ( Amer) Est GFR (Non-Af Amer) BUN/Creatinine Ratio (10-20) Glucose (70-99) mg/dl POC Glucose 111 H 128 H (70-99) Lactate (0.4-2.0) mmol/L Calcium (8.5-10.1) mg/dl Total Bilirubin (0.2-1) mg/dl AST (15-37) U/L ALT (12-78) U/L Alkaline Phosphatase (45-117) U/L Total Protein (6.4-8.2) gm/dl Albumin (3.4-5.0) gm/dl Globulin (2.5-4.0) gm/dl Albumin/Globulin Ratio (0.9-2) 04/20/19 04/20/19 04/20/19 Range/Units 15:51 11:33 09:22 WBC (4.8-10.8) K/uL RBC (4.2-5.4) M/uL Hgb 8.9 L (12.0-16.0) g/dL Hct (37-47) % MCV (80-100) fL MCH (25-34) pg MCHC (32-36) g/dL RDW Std Deviation (36.4-46.3) fL RDW Coeff of Mine (11.5-14.5) % Plt Count (130-400) K/uL MPV (7.4-10.4) fL Immature Gran % (Auto) % Neut % (Auto) % Lymph % (Auto) % [place] % (Auto) % Eos % (Auto) % Baso % (Auto) % Immature Gran # (Auto) (0.00-0.02) K/uL Neut # (Auto) (1.4-6.5) K/uL Lymph # (Auto) (1.2-3.4) K/uL [place] # (Auto) (0.11-0.59) K/uL Eos # (Auto) (0-0.5) K/uL Baso # (Auto) (0-0.2) K/uL Sodium (136-145) mmol/L Potassium (3.5-5.1) mmol/L Chloride (98-107) mmol/L Carbon Dioxide (21-32) mmol/L Anion Gap (3-11) BUN (7-18) mg/dl Creatinine (0.6-1.2) mg/dl Est Cr Clr Drug Dosing ml/min Est GFR ( Amer) Est GFR (Non-Af Amer) BUN/Creatinine Ratio (10-20) Glucose (70-99) mg/dl POC Glucose 196 H (70-99) Lactate 1.6 (0.4-2.0) mmol/L Calcium (8.5-10.1) mg/dl Total Bilirubin (0.2-1) mg/dl AST (15-37) U/L ALT (12-78) U/L Alkaline Phosphatase (45-117) U/L Total Protein (6.4-8.2) gm/dl Albumin (3.4-5.0) gm/dl Globulin (2.5-4.0) gm/dl Albumin/Globulin Ratio (0.9-2) 04/20/19 04/20/19 04/20/19 Range/Units 09:10 07:51 05:51 WBC 14.82 H (4.8-10.8) K/uL RBC 3.65 L (4.2-5.4) M/uL Hgb 9.1 L (12.0-16.0) g/dL Hct 27.4 L (37-47) % MCV 75.1 L (80-100) fL MCH 24.9 L (25-34) pg MCHC 33.2 (32-36) g/dL RDW Std Deviation 42.0 (36.4-46.3) fL RDW Coeff of Mine 15.3 H (11.5-14.5) % Plt Count 355 (130-400) K/uL MPV 10.0 (7.4-10.4) fL Immature Gran % (Auto) 0.4 % Neut % (Auto) 87.0 % Lymph % (Auto) 5.1 % [place] % (Auto) 7.0 % Eos % (Auto) 0.4 % Baso % (Auto) 0.1 % Immature Gran # (Auto) 0.06 H (0.00-0.02) K/uL Neut # (Auto) 12.90 H (1.4-6.5) K/uL Lymph # (Auto) 0.76 L (1.2-3.4) K/uL [place] # (Auto) 1.03 H (0.11-0.59) K/uL Eos # (Auto) 0.06 (0-0.5) K/uL Baso # (Auto) 0.01 (0-0.2) K/uL Sodium 132 L (136-145) mmol/L Potassium 3.4 L (3.5-5.1) mmol/L Chloride 104 (98-107) mmol/L Carbon Dioxide 20 L (21-32) mmol/L Anion Gap 8.0 (3-11) BUN 19 H (7-18) mg/dl Creatinine 0.72 D (0.6-1.2) mg/dl Est Cr Clr Drug Dosing 123.8 ml/min Est GFR ( Amer) 120.6 Est GFR (Non-Af Amer) 104.0 BUN/Creatinine Ratio 26.1 H (10-20) Glucose 147 H (70-99) mg/dl POC Glucose 156 H (70-99) Lactate (0.4-2.0) mmol/L Calcium 7.7 L (8.5-10.1) mg/dl Total Bilirubin 0.7 (0.2-1) mg/dl AST 11 L (15-37) U/L ALT 16 (12-78) U/L Alkaline Phosphatase 76 (45-117) U/L Total Protein 5.8 L (6.4-8.2) gm/dl Albumin 2.1 L (3.4-5.0) gm/dl Globulin 3.7 (2.5-4.0) gm/dl Albumin/Globulin Ratio 0.6 L (0.9-2) 04/20/19 Range/Units 05:17 WBC (4.8-10.8) K/uL RBC (4.2-5.4) M/uL Hgb (12.0-16.0) g/dL Hct (37-47) % MCV (80-100) fL MCH (25-34) pg MCHC (32-36) g/dL RDW Std Deviation (36.4-46.3) fL RDW Coeff of Mine (11.5-14.5) % Plt Count (130-400) K/uL MPV (7.4-10.4) fL Immature Gran % (Auto) % Neut % (Auto) % Lymph % (Auto) % [place] % (Auto) % Eos % (Auto) % Baso % (Auto) % Immature Gran # (Auto) (0.00-0.02) K/uL Neut # (Auto) (1.4-6.5) K/uL Lymph # (Auto) (1.2-3.4) K/uL [place] # (Auto) (0.11-0.59) K/uL Eos # (Auto) (0-0.5) K/uL Baso # (Auto) (0-0.2) K/uL Sodium (136-145) mmol/L Potassium (3.5-5.1) mmol/L Chloride (98-107) mmol/L Carbon Dioxide (21-32) mmol/L Anion Gap (3-11) BUN (7-18) mg/dl Creatinine (0.6-1.2) mg/dl Est Cr Clr Drug Dosing ml/min Est GFR ( Amer) Est GFR (Non-Af Amer) BUN/Creatinine Ratio (10-20) Glucose (70-99) mg/dl POC Glucose 160 H (70-99) Lactate (0.4-2.0) mmol/L Calcium (8.5-10.1) mg/dl Total Bilirubin (0.2-1) mg/dl AST (15-37) U/L ALT (12-78) U/L Alkaline Phosphatase (45-117) U/L Total Protein (6.4-8.2) gm/dl Albumin (3.4-5.0) gm/dl Globulin (2.5-4.0) gm/dl Albumin/Globulin Ratio (0.9-2) Diagnostic Findings CT abd pelvis oral and IV con CLINICAL HISTORY: 39 years-old Female presenting with post op, sepsis. TECHNIQUE: Multidetector CT of the abdomen and pelvis was performed after the administration of oral and intravenous contrast. IV contrast: 115 mL of Optiray 320. One or more dose lowering techniques were used consistent with the principles of ALARA (as low as reasonably achievable), including automatic exposure control, mA or kV adjustment to individual patient size, and/or use of iterative reconstruction. COMPARISON: 04/19/2019. CT DOSE (mGy.cm): The estimated cumulative dose is 1775.24. FINDINGS: Vest Baster topogram: Unremarkable. Lung bases: Normal heart size. Trace pericardial effusion. Small to moderate right pleural effusion. Moderate right pneumothorax. Extensive basilar atelectasis greater on the right. CT angio chest PE protocol CLINICAL HISTORY: 39 years-old Female presenting with postoperative shortness of breath, clinical concern for pulmonary bolus. TECHNIQUE: Multidetector CT angiography of the chest was performed after administration of intravenous contrast. 3-D volumetric and/or maximum intensity projection (MIP) images were subsequently reconstructed for review. IV contrast: 115 mL of Optiray 320. One or more dose lowering techniques were used consistent with the principles of ALARA (as low as reasonably achievable), including automatic exposure control, mA or kV adjustment to individual patient size, and/or use of iterative reconstruction. COMPARISON: Chest x-ray performed earlier the same day. CT DOSE (mGy.cm): The estimated cumulative dose is 1775.24 mGycm. FINDINGS: Vest Baster topogram: Unremarkable. Pulmonary vasculature: The study is suboptimal for the assessment of the pulmonary vascular tree secondary to timing of the contrast bolus and respiratory motion artifact. Allowing for limited image quality, no central filling defect to suggest pulmonary embolus. Main pulmonary artery mildly enlarged measuring 3.3 cm in diameter. No flattening of the interventricular septum. No intracardiac filling defect. No reflux of contrast into the hepatic veins. Remaining chest: Soft tissues: Normal thyroid and thoracic inlet. Several prominent mediastinal lymph nodes. Normal aorta. . Normal heart size. Moderate right pleural effusion, which is simple appearing. No left pleural effusion or pericardial effusion. Trace pneumoperitoneum. Small perihepatic ascites. Lungs and airways: Moderate right pneumothorax. Central airways patent. Pulmonary arteries enlarged relative to adjacent bronchi. Extensive volume loss and consolidation in the lower lobes greater on the right. No other focal infiltrate apart from extensive lower lobe predominant atelectasis. Musculoskeletal: Normal osseous structures. IMPRESSION: 1. Moderate right hydropneumothorax. No convincing evidence of tension at this time. Decompression is still recommended. 2. No gross evidence of pulmonary embolus allowing for limitations related to timing of the contrast bolus and respiratory motion artifact. 3. Pulmonary artery hypertension suspected. 4. Small perihepatic ascites and trace pneumoperitoneum. This may be postsurgical. Liver: Normal morphology. Density suggestive of hepatic steatosis. No focal lesion. Patent hepatic vasculature. Biliary: No intrahepatic or extrahepatic biliary ductal dilatation. The gallbladder is distended possibly on a physiologic basis. The appearance is unchanged from prior. No convincing evidence of wall thickening or pericholecystic fluid or inflammatory change. Pancreas: Mild parenchymal atrophy. Spleen: Normal. Adrenal glands: 3.5 cm nodule in the lateral limb of the left adrenal gland, indeterminate on this contrast-enhanced exam though possibly a benign adenoma. Right adrenal gland normal. Kidneys and ureters: Exophytic cyst arising from the lower pole the left kidney. Otherwise normal renal parenchyma. No nephrolithiasis or hydronephrosis. Ureters nondistended. Bladder: Urinary bladder contains intraluminal gas likely representing recent catheterization. Pelvic organs: Uterus surgically absent. Bowel: A rectal tube is in place with the balloon inflated in a somewhat low position within the anorectal junction. Rectal descent may be present. Contrast has been injected into the rectal tube, which opacifies proximally to the level of the distal sigmoid colon. There is continuity of the rectosigmoid junction with the left pelvic sidewall collection, which demonstrates layering contrast material and gas. This tracks to the vaginal cuff. The mid to proximal sigmoid colon is not opacified with contrast and contains a mild stool burden. Oral contrast was also administered in an antegrade fashion, which extends to the ascending colon. Mild distention of several loops of small bowel without evid ence of a bowel obstruction. Bowel wall thickening is noted in the left midabdomen. Peritoneal cavity: Small ascites. Fluid collection in the anterior left mid abdomen measuring 5.4 cm similar to prior exam. This does not contain oral contrast to suggest continuity with adjacent inflamed loops of small bowel. Multiple sites of interloop fluid. Peritoneal enhancement and thickening evident. Oral contrast and gas containing left superior pelvic sidewall collection measuring over 12 cm in diameter as well as layering unopacified fluid or debris. Lymph nodes: No enlarged lymph nodes in the abdomen or pelvis. Vasculature: Aorta and IVC patent and normal in caliber. Abdominal wall: Gas and edema noted in the anterior abdominal wall. The gas is likely postsurgical. Several small herniations also contain ascitic fluid. Skin thickening and subcutaneous fat infiltration is again in the anterior abdominal wall. Musculoskeletal: Degenerative changes of the spine. IMPRESSION: 1. Multiple collections are again evident, the dominant collection along the left superior pelvis with gross continuity of the rectosigmoid junction evidenced by oral contrast within the collection. Additional smaller more superior and anterior collection without no convincing evidence of continuity with bowel given the absence of oral contrast. 2. Peritonitis with ascites and multifocal interloop fluid. 3. Inflamed small bowel in the left mid abdomen likely secondarily reactive. 4. Post surgical changes of hysterectomy. 5. Moderate right hydropneumothorax new from prior. The gas within the right pleural space may represent dissected pneumoperitoneum allowing other possible etiologies. Decompression to be considered. 6. Additional findings as above.
[2019-04-20] MEDS ORDERED: ePHEDrine sulfate 50 MG/ML AMP IV PRN (23:18)
[2019-04-20] MEDS ORDERED: ATROPINE SULFATE 0.1 MG/ML 10ML SYR IV PRN (23:18)
[2019-04-20] MEDS ORDERED: HYDROmorphone INJ 1 MG/ML SYRINGE IV PRN (23:18)
[2019-04-20] MEDS ORDERED: fentaNYL citrate 100 MCG/2 ML VIAL IV PRN (23:18)
[2019-04-20] MEDS ORDERED: ONDANSETRON INJ 2 MG/ML 2 ML VIAL IV PRN (23:18)
[2019-04-21] MEDS ORDERED: LIDOCAINE HCL 1% 20 ML VIAL ONE (00:01)
[2019-04-21] MEDS ORDERED: ONDANSETRON INJ 2 MG/ML 2 ML VIAL ONE (01:30)
[2019-04-21] MEDS ORDERED: ROCURONIUM BROMIDE 10 MG/ML 5 ML VIAL ONE (01:30)
[2019-04-21] MEDS ORDERED: PROPOFOL IV EMULSION 10 MG/ML 20 ML VIAL IV ONE (01:30)
[2019-04-21] MEDS ORDERED: SUGAMMADEX SODIUM 200 MG/2 ML VIAL IV ONE (01:31)
[2019-04-21] MEDS ORDERED: SUCCINYLCHOLINE CHLORIDE 20 MG/ML 10 ML VIAL ONE (01:31)
--- NOTE | 2019-04-21 01:47 | Post Operative Brief Note ---
Immediate Post Op Note v1 Date of Surgery April 21, 2019 Pre & Post Diagnosis Operation Date: 04/20/19 23:30 Pre-Op Diagnosis: Right hydropneumothorax, Abdominal abscess Post-Op Diagnosis: Right hydropneumothorax, Abdominal abscess Procedure Operation Date: 04/20/19 23:30 Actual Procedures p Exploratory Laparotomy, Drainage of Abdominal Abscess; Ileostomy Creation; Placement of Right Thoracostomy Tube - Stanley Zimmerman MD Surgeon Stanley Zimmerman MD Boiler House Inspector MD Venkatesh Subramanian MD Estimated Blood Loss 25 Findings Consistent with Post-Op Diagnosis Drains [place] Drain (19Fr x 2 in pelvis), [place] Catheter and [place] Drain (1/2" subcutaneous) Anesthesia Type General Complications none
--- NOTE | 2019-04-21 02:52 | Anesthesiology Progress Note ---
Date of Service April 21, 2019 Anesthesia Post Procedure Vital Signs Vital Signs: Temp Pulse Pulse Resp BP Pulse Ox 04/21/19 02:30 37.2 C 117 H 24 128/82 100 04/21/19 02:25 119 H 22 125/79 100 04/21/19 02:15 120 H 24 132/84 100 04/21/19 02:05 128 H 22 134/83 96 04/21/19 02:03 37.0 C 130 H 20 133/91 100 04/20/19 20:03 37.2 C 120 H 28 H 130/74 92 04/20/19 16:24 36.8 C 120 H 16 137/83 92 04/20/19 16:00 110 H 04/20/19 07:53 36.9 C 120 H 17 96/65 L 89 L 04/20/19 07:16 123 H 04/20/19 03:00 37 C 121 H 20 121/78 91 Pain Intensity Abdomen: Pain Intensity: 2 Transfer of Care Handoff Completed per policy Notes Mental Status: alert / awake / arousable and participated in evaluation Patient Amnestic to Procedure: Yes Nausea / Vomiting: adequately controlled Pain: adequately controlled Airway Patency, RR, SpO2: stable & adequate BP & HR: stable & adequate Hydration State: stable & adequate Anesthetic Complications: no major complications apparent and Pt Satisfied with anesthetic care
[2019-04-21] MEDS ORDERED: VANCOMYCIN CONSULT ACTIVE PRN (03:07)
--- NOTE | 2019-04-21 03:22 | Critical Care Consultation ---
Date of Consultation April 21, 2019 Assessment & Plan (1) Admitted to intensive care unit: Reason Critically Ill: 39-year-old female status post exploratory laparotomy with washout and ileostomy placement as well as chest tube placement in the setting of RIGHT sided hydropneumothorax. NEURO - * CAM ICU: NEGATIVE CARDIAC/VASCULAR - * Tachycardia: * Hope for continued improvement status post exploratory laparotomy. * Continue with aggressive IV fluids in the postoperative patient. * Pressors if needed. * Monitor on telemetry. RESPIRATORY - * RIGHT-sided hydropneumothorax status post chest tube placement: * Monitor closely for concerning signs/symptoms. * Thoracic surgery consulted. GI/NUTRITION - * Abdominal abscess and pneumoperitoneum status post [employer]ALL [employer]BLER surgery. * Status post exploratory laparotomy. * Continue with Zosyn. * Will add vancomycin for complete coverage status post prior intervention. * NG tube in place. * Prophylaxis: RENAL/LYTES - * No significant electrolyte derangements. * IVF: LR at 175 mL/h - * [place] in place - Strict I&Os. ENDO - * History of diabetes * BSGs per unit protocol. ISS --> gtt per unit policy. * Hypothyroidism: * Likely benefit from conversion to IV while n.p.o. HEME - * Stable H&H. * Will monitor postoperatively. ID - * Sepsis secondary to abdominal source. * Meets criteria based on heart rate, leukocytosis, and known source of infection. * Continue vancomycin and Zosyn for now. * Monitor for worsening signs of infection. LINES/IV ACCESS - * PIVs x2 * [place] * LAVELL drain x2. DVT PROPHYLAXIS - * Defer to general surgery status post exploratory laparotomy. * SCDs I have personally spent 45 minutes of critical care time in the direct trina gement of this patient. This is a life/limb threatening event. This includes time spent evaluating patient, direct bedside care, chart review, placing orders, interpretation of diagnostic studies, discussion with consultants, patient, and family members, as well as other required patient management activities. This time is exclusive of all separately billable procedures, and teaching time and separate from and in addition to any other critical care service time. Thank you for allowing us to participate in the care of this patient. Please refer to my attending physician's documentation for any further recommendations. (2) Status post exploratory laparotomy: (3) S/P ileostomy: (4) Hydropneumothorax: (5) S/P chest tube placement: (6) Abdominal abscess: (7) Depression: (8) Hypothyroid: (9) Diabetes: (10) Abdominal pain: (11) Sepsis: (12) Nausea & vomiting: (13) Status post hysterectomy with oophorectomy: Supervising Physician Co-Signing Physician Notes I have personally evaluated and examined this patient. I agree with assessment and plan of Darinel Bowman PA-C. Please refer to my resident's documentation for my evaluation. History of Present Illness Attending Physician: Venkatesh Grullon MD History of Present Illness Patient is a 39-year-old female with a significant past medical history of endometriosis, diabetes, hypothyroidism, and depression who was initially admitted to this facility postop day 2 status post total hysterectomy. Patient was noted to have persistent tachycardia as well as development of hypoxia and persistent leukocytosis. Patient underwent a repeat CT of the abdomen pelvis as well as CT of the chest which was concerning for acute RIGHT-sided hydropneumothorax as well as progressive abdominal abscess. Patient was taken emergently to the operating room for chest tube placement as well as exploratory laparotomy with ileostomy placement and washout. Upon arrival in the ICU postoperatively, the patient is awake and alert. She is still with the effects of anesthesia, however she answers questions appropriately. She offers complaints of pain to the RIGHT sided chest, otherwise she reports feeling fine. Allergies Allergy/AdvReac Type Severity Reaction Status Date / Time morphine AdvReac Intermediate NAUSEA Verified 04/19/19 20:41 VOMITING Home Medications Home Medications Medication Instructions Recorded Confirmed Type fluticasone propionate [Flonase 1 spray INTRANASAL QA 04/02/19 04/19/19 History Allergy Relief] levothyroxine 75 mcg PO QAM 04/02/19 04/19/19 History metformin 500 mg PO BID 04/02/19 04/19/19 History omeprazole 40 mg PO QAM 04/02/19 04/19/19 History paroxetine HCl [Paxil] 40 mg PO HS 04/02/19 04/19/19 History quetiapine [Seroquel] 200 mg PO HS 04/02/19 04/19/19 History topiramate 100 mg PO HS 04/02/19 04/19/19 History docusate sodium [Colace] 100 mg PO BID #30 cap 04/16/19 04/19/19 Rx oxycodone-acetaminophen [Percocet] 1 tab PO Q4H PRN #14 tab 04/16/19 04/19/19 Rx acetaminophen 650 mg PO Q6H PRN 04/18/19 04/19/19 History ibuprofen 600 mg PO Q6H PRN 04/18/19 04/19/19 History ondansetron HCl [Zofran] 4 mg PO Q6H #10 tab 04/18/19 04/19/19 Rx oxycodone 5 mg PO Q6H PRN #14 tab 04/18/19 04/19/19 Rx simethicone 80 mg PO PCHS PRN 04/18/19 04/19/19 History Patient History Medical History Depression Diabetes mellitus, type 2 NIDDM GERD (gastroesophageal reflux disease) controlled Hypothyroidism Obesity Surgical History H/O oophorectomy RIGHT History of hysterectomy History of laparotomy OVARIAN CYSTECTOMY Family History Grandmother (Maternal) Family history of diabetes mellitus Grandmother (Paternal) Family history of diabetes mellitus Grandfather (Paternal) Family history of esophageal cancer Social History Preferred Language: Slovak 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: Effective House Coordinator Required: No Beliefs That Will Affect Care: None marital status: Current Living Situation: Spouse current occupational status: employed Feels Safe at Home: Yes Safety Concerns: Feels Safe At This Time Smoking Status: Never smoker Second Hand Exposure: No ; Hx Alcohol Use: No Hx Substance Use: No Dental Care, Regularly: Yes Seatbelt Use: always Sunscreen Use: Yes Review of Systems Review of Systems: All systems reviewed & are unremarkable except as noted in HPI & below Physical Exam 2 Physical Exam: VITAL SIGNS - Vital signs and nursing notes were reviewed. GENERAL - 39-year-old female appearing her stated age who is in no acute distress. Communicates well with provider and answers questions appropriately. HEAD - NC/AT. EYES - PERRL with EOMI bilaterally. Sclera anicteric. EARS - No deformities of external structures noted on gross examination bilaterally. NOSE - Midline and without cyanosis. No epistaxis or purulent drainage noted. Septum midline without deviation or septal hematoma noted. MOUTH/OROPHARYNX - Without perioral cyanosis. Buccal mucosa pink and moist and without leukoplakia. NECK - Neck with FROM. Supple to palpation. No nuchal rigidity. LUNGS - Chest wall symmetric without accessory muscle use, intercostals retract ions, or central cyanosis. Normal vesicular breath sounds CTA B/L. No wheezes, rales, or rhonchi appreciated. CARDIAC - RRR with S1/S2. No murmur, rubs, or gallops appreciated. ABDOMEN - Abdominal contour obese without pulsations or visible masses. Ecchymosis noted at the trochar sites to the bilateral lower abdomen. Midline incision clean, dry, and intact. LAVELL drains noted to the bilateral lower abdomen. Ostomy noted midline. BS normal all four quadrants. Mild tenderness to palpation appreciated throughout. No guarding. No Rebound Tenderness. EXTREMITIES - No clubbing or peripheral cyanosis. No pretibial edema present. +3/5 radial and dorsalis pedis pulses palpated throughout. +5/5 strength noted in UE/LE bilaterally. NEUROLOGIC - Cranial nerves II through XII grossly intact. Sensory intact to light touch throughout. PSYCH - A&Ox3 and cooperates fully with examiner. Pt is very pleasant and interacts well with examiner. Results & Data Vital Signs (Past 12 Hours) Vital Signs Temp Pulse Pulse Resp BP Pulse Ox 04/21/19 02:30 37.2 C 117 H 24 128/82 100 04/21/19 02:25 119 H 22 125/79 100 04/21/19 02:15 120 H 24 132/84 100 04/21/19 02:05 128 H 22 134/83 96 04/21/19 02:03 37.0 C 130 H 20 133/91 100 04/20/19 20:03 37.2 C 120 H 28 H 130/74 92 04/20/19 16:24 36.8 C 120 H 16 137/83 92 04/20/19 16:00 110 H PG Care Time/CCT Total # of Minutes Spent Total Time Spent with Patient: Total time spent is greater than 50% in coordination of care (as documented) at patient's floor/unit and/or counseling patient: Critical Care Time: Yes Total Critical Care Time: 45 (1) Diabetes Diabetes mellitus complication status: with other specified complication Diabetes mellitus long term care social worker insulin use: unspecified long term care social worker insulin use status Diabetes mellitus type: other specified (including RADHA) Qualified Code(s): E13.69 - Other specified diabetes mellitus with other specified complication (2) Sepsis Sepsis acute organ dysfunction status: unspecified Sepsis type: sepsis due to unspecified organism Qualified Code(s): A41.9 - Sepsis, unspecified organism (3) Nausea & vomiting Vomiting Intractability: non-intractable Vomiting type: unspecified Qualified Code(s): R11.2 - Nausea with vomiting, unspecified (4) Abdominal pain Abdominal location: unspecified location Qualified Code(s): R10.9 - Unspecified abdominal pain
[2019-04-21] MEDS ORDERED: FAMOTIDINE 10 MG/ML 2ML VIAL IV SCH (03:25)
[2019-04-21] MEDS ORDERED: VANCOMYCIN HCL 2,500 MG in SODIUM CHLORIDE 0.9% 500 ML IV ONE (03:30)
[2019-04-21] MEDS: LACTATED RINGER'S 1,000 ML IV SCH ×4 (03:41→09:02)
[2019-04-21] MEDS: FAMOTIDINE 20 MG in SYRINGE 3 ML IV SCH ×2 (03:42→16:10)
[2019-04-21] MEDS: ALUMINUM/MAGNESIUM SUSP 30 ML UDC NG SCH ×4 (03:51→20:02)
[2019-04-21 03:52] LABS: Basophils # (auto) 0.02 K/uL (0-0.2); Basophils % (auto) 0.1 %; Eosinophils # (auto) 0.03 K/uL (0-0.5); Eosinophils % (auto) 0.2 %; Hematocrit (blood only) 23.2 % (37-47); Hemoglobin 7.9 g/dL (12.0-16.0); Immature Granulocytes # (auto) 0.09 K/uL (0.00-0.02); Immature Granulocytes % (auto) 0.6 %; Lymphocytes # (auto) 0.61 K/uL (1.2-3.4); Lymphocytes % (auto) 3.7 %; Mean Corpuscular Hemoglobin 25.2 pg (25-34); Mean Corpuscular Hgb Conc 34.1 g/dL (32-36); Mean Corpuscular Volume 73.9 fL (80-100); Mean Platelet Volume 9.4 fL (7.4-10.4); Monocytes % (auto) 7.3 %; Neutrophils % (auto) 88.1 %; Platelet Count 350 K/uL (130-400); RDW Coefficient of Variation 15.2 % (11.5-14.5); RDW Standard Deviation 41.2 fL (36.4-46.3); Red Blood Count 3.14 M/uL (4.2-5.4); White Blood Count 16.35 K/uL (4.8-10.8)
[2019-04-21 04:15] LABS: Albumin Level 2.1 gm/dl (3.4-5.0); BUN Creatinine Ratio 16.8 (10-20); Creatinine Clr Calc Pharmacy 181.9 ml/min; Est GFR (African American) 140.3; Magnesium 2.2 mg/dl (1.8-2.4); Potassium 3.3 mmol/L (3.5-5.1)
[2019-04-21 04:18] LABS: RBC Morphology Unremarkable
[2019-04-21 04:35] LABS: Albumin Globulin Ratio 0.6 (0.9-2); Bilirubin,Total 0.5 mg/dl (0.2-1); Globulin 3.3 gm/dl (2.5-4.0); Phosphorus 1.5 mg/dl (2.5-4.9); Total Protein 5.4 gm/dl (6.4-8.2)
[2019-04-21] MEDS: PIPERACILLIN/TAZOBACTAM 4.5 GM in DEXTROSE 5% 100 ML IV SCH ×3 (04:54→19:34)
--- NOTE | 2019-04-21 05:33 | Operative Report ---
DATE OF OPERATION: 04/21/2019 PREOPERATIVE DIAGNOSIS: Perforation of large bowel, right hydropneumothorax. POSTOPERATIVE DIAGNOSIS: Perforation of large bowel, right hydropneumothorax. PROCEDURES: Exploratory laparotomy with drainage of fluid collections, placement of drains and formation of loop ileostomy, placement of right tube thoracostomy. SURGEON: Stanley Zimmerman MD DATABASE ADMIN: Pam Hutchins MD and Venkatesh Grullon MD FINDINGS: There was a large fluid collection with purulent smelling material and purulent appearing material from the left lower quadrant and left pelvis. There was a significant inflammatory rind in the left lower quadrant in the lower portion of that and in the left pelvis. There was significant rind surrounding the rectosigmoid junction. I could not identify specifically the perforated area. The terminal ileum was somewhat thickened in a reactive way, but that was used to perform an ileostomy. TECHNIQUE: The patient was given an intravenous sedation and the right chest wall was prepped and draped in the usual sterile fashion. The site for the chest tube was chosen and the skin and subcutaneous tissue in that area were anesthetized with 1% Xylocaine without epinephrine. Skin incision was made and a subcutaneous tunnel was made superiorly and anteriorly. The introducer needle was passed through about the fifth intercostal space. There was return of blood and intrathoracic fluid. The wire was then passed with ease. The dilators were then used and a 24-Faroese chest tube was placed. The incision was closed and the chest tube was secured with a 3-0 nylon suture. Chest x-ray was obtained and the chest tube was in good position and the lung had reexpanded. Attention was then turned to the abdomen. The patient was given a general anesthetic then. The area was prepped and draped in the usual sterile fashion. Vertical incision was made through the scar from her previous vertical midline incision in the lower abdomen. This was extended up to the left side of the umbilicus. This was all carried down through the subcutaneous tissue to the fascia. The fascia was incised carefully until I had entered the abdomen. I passed my finger into the abdominal cavity. There were no adhesions to the undersurface of the incision, and the fascial and peritoneal incisions were carried along the length of the skin incision. I then bluntly dissected the colon away from the lateral abdominal wall on the left and also into the pelvis and there was release and we then suctioned out a significant amount of purulent-appearing and smelling fluid. I then the redundant sigmoid colon which was doubled back on itself. There was a small interloop collection there, but that fluid was clear. I then worked towards the right side and some of the small bowel, also and releasing some fluid collections, but those were also clear. I then dissected down along the distal sigmoid and superior aspect of the rectum. There was significant fibrinous exudate along there and I could not identify the hole in the colon. Since I was going to perform an ileostomy, I did not feel that it was necessary to specifically identify the opening. I reduced the small bowel out of the right lower quadrant and identified the ileocecal valve and follow that proximally until there was a loop of small bowel in the terminal ileum area that would come out and had enough length to perform an ileostomy. A small hooper bay of skin was then removed from the right side of the abdomen just below the umbilicus and lateral to the incision. The subcutaneous tissue was divided using cautery. The fascia was opened in a cruciate fashion and the peritoneum was opened. I was then able to dilate that opening to 3 fingerbreadths. I then was able to bring a loop of terminal ileum out through that area. The abdomen was then irrigated with a copious amount of saline solution and that was removed. A 15 Mesfin drain was then brought through a small skin incision under direct vision, 1 through the left side, 1 through the right side and those were placed into the pelvis. They were secured with 3-0 nylon. The fascia was then closed with a running #1 PDS. A [place] drain was placed in the base of the subcutaneous tissue after the subcutaneous space was irrigated and the skin was closed loosely with annalisa. The ileostomy was then matured. It was opened longitudinally along the bowel and then using a [place] fashion technique with 3-0 Vicryl sutures, the ileostomy was matured. The skin was cleansed, dried, and a dressing was placed. The estimated blood loss was 25 mL. Sponge, needle and instrument counts were correct prior to closure. The patient tolerated the surgical procedure without complication and was transferred to recovery. I attest to the content of the Intraoperative Record and any orders documented therein. Any exception s are noted below.
[2019-04-21] MEDS ORDERED: POTASSIUM PHOS 3 MMOL/1 ML INFUSION IV STA (06:20)
[2019-04-21] MEDS ORDERED: POTASSIUM PHOSPHATE 15 MMOL in SODIUM CHLORIDE 0.9% 250 ML IV ONE (06:30)
--- NOTE | 2019-04-21 06:37 | XRay Report ---
XR chest 1V portable HISTORY: 39 years-old Female Chest tube in place postoperative exam. Status post placement of a righ t-sided chest tube COMPARISON: CTA of the chest 04/20/2019 TECHNIQUE: Portable AP view of the chest FINDINGS: An enteric tube courses below the diaphragm outside the [id number]. Cardiac silhouette is enlarged and likely accentuated by technique. Lungs are hypoinflated with bronchovascular crowding and bibasi lar opacities. Chest tube projects over the right midlung. Trace right pleural effusion. Previously d escribed right pneumothorax is not definitively seen on this study. IMPRESSION: 1. Right-sided chest tube terminates within the region of the right midlung. Previously noted right s ided pneumothorax is not definitively seen. 2. Hypoinflation with bronchovascular crowding. 3. Enteric tube courses below the diaphragm. The above report was generated using voice recognition software. It may contain grammatical, syntax o r spelling errors. Electronically signed by: Tariq Marie M.D. 04/21/2019 6:35 AM
--- NOTE | 2019-04-21 06:40 | XRay Report ---
XR chest 1V portable HISTORY: 39 years-old Female CHEST TUBE IN OR STATUS post placement of a right-sided chest tube. Rig ht-sided pneumothorax COMPARISON: Chest radiograph and CTA chest 04/20/2019 TECHNIQUE: Portable AP view of the chest FINDINGS: Chest tube terminates within the right infrahilar distribution. Tiny right-sided pneumothorax is seen notably at the medial right lung base has decreased in size from comparison. Hypoinflated lungs with bilateral opacities suggestive of probable atelectasis. Bones appear grossly intact. Small right ple ural effusion persists. IMPRESSION: 1. Status post placement of a right-sided chest tube, distal tip terminating inferior to the right hi lum. 2. Tiny right-sided pneumothorax has decreased in size from comparison. The above report was generated using voice recognition software. It may contain grammatical, syntax o r spelling errors. Electronically signed by: Tariq Marie M.D. 04/21/2019 6:39 AM
--- NOTE | 2019-04-21 06:54 | XRay Report ---
XR chest 1V portable CLINICAL HISTORY: placement of NGT COMPARISON STUDY: 04/21/2019 FINDINGS: The cardiac and mediastinal contours remain stable. There is a nasogastric tube within the stomach. There is a right sided chest tube. There are low lung volumes with bilateral parietal airspa ce opacities. IMPRESSION: 1. Nasogastric tube in the stomach 2. No change in the position of right-sided chest tube. No evidence of pneumothorax 3. Low lung volumes with bilateral pulmonary airspace opacities Electronically signed by: Damien Kraft M.D. 04/21/2019 6:53 AM
[2019-04-21 08:25] LABS: Glucose Pleural Fluid 135 mg/dl
[2019-04-21 08:35] LABS: Amylase Pleural Fluid 6 U/L; Total Protein Pleural Fluid 2.6 g/dl
[2019-04-21 08:46] LABS: LDH Pleural Fluid 811 U/L
[2019-04-21 09:20] LABS: Appearance Pleural Fluid CLOUDY; Color Pleural Fluid STRAW; RBC Pleural Fluid (A) 8000 /uL; Source Pleural Fluid RIGHT LUNG; WBC Pleural Fluid (A) 11165 /uL
--- NOTE | 2019-04-21 09:34 | Surgery Progress Note ---
Date of Service April 21, 2019 Assessment & Plan (1) Abdominal abscess: POD # 0 s/p exploratory laparotomy, drainage of pelvic fluid collections, creation of loop ileostomy, and placement of right thoracostomy tube - afebrile, tachycardic HR in low 100's - leukocytosis improving (16K) - Ileostomy functioning - NGT wtih 50 cc output - Chest tube with 50 cc output - adequate urine output - CXR showing no pneumothorax Plan: Continue IV morphine prn pain Continue NPO, NGT to LIS, may have ice chips Continue IV Abx Zosyn and Vancomycin Continue IV fluids Continue IV Zofran as needed Continue Mendosa catheter Continue darin drains to bulb suction Dr. Grady consulted for management of chest tube Appreciate ICU management Incentive spirometry SCDs Dr. Zimmerman has seen and examined pt, agrees with above Subjective feeling better today than yesterday no shortness of breath, per nursing her oxygen saturations drop after removing oxy mask to 89-90% abdominal pain at incision site no nausea or vomiting ostomy functioning Physical Exam Constitutional: WD/WN, vitals as above + obese; no acute distress Gastrointestinal (Abdomen): Inspection/Auscultation: abdomen normal to inspection; abdomen not distended Percussion/Palpation: + abdomen tender (at incision site approriate post op) and abdomen soft; no guarding and abdomen not rigid ileostomy full with liquid stool, ostomy pink midline incision covered with dressing, not inspected today Skin: no rashes, warm and dry mild pallor Psychiatric: Orientation: alert and oriented x 3 Results & Data Vital Signs (Past 12 Hours) Vital Signs Temp Pulse Pulse Resp BP BP Pulse Ox 04/21/19 06:00 122 H 28 H 139/80 100 04/21/19 05:30 105 H 22 142/63 H 99 04/21/19 05:00 107 H 22 135/72 99 04/21/19 04:30 108 H 23 132/70 99 04/21/19 04:00 37.0 C 112 H 25 H 105/63 100 04/21/19 03:45 112 H 24 133/72 100 04/21/19 03:30 111 H 18 117/68 98 04/21/19 03:15 118 H 26 H 121/70 100 04/21/19 03:00 121 H 19 121/72 99 04/21/19 02:45 118 H 23 133/69 99 04/21/19 02:40 117 H 28 H 126/78 100 04/21/19 02:35 118 H 28 H 131/80 100 04/21/19 02:33 117 H 27 H 128/82 100 04/21/19 02:30 37.2 C 118 H 117 H 24 125/79 128/82 100 04/21/19 02:25 119 H 22 125/79 100 04/21/19 02:15 120 H 24 132/84 100 04/21/19 02:07 127 H 04/21/19 02:05 128 H 22 134/83 96 04/21/19 02:03 37.0 C 130 H 20 133/91 100 Laboratory Results 04/21/19 04/21/19 04/21/19 Range/Units 07:45 07:45 07:45 WBC (4.8-10.8) K/uL RBC (4.2-5.4) M/uL Hgb (12.0-16.0) g/dL Hct (37-47) % MCV (80-100) fL MCH (25-34) pg MCHC (32-36) g/dL RDW Std Deviation (36.4-46.3) fL RDW Coeff of Mine (11.5-14.5) % Plt Count (130-400) K/uL MPV (7.4-10.4) fL Immature Gran % (Auto) % Neut % (Auto) % Lymph % (Auto) % Cottle % (Auto) % Eos % (Auto) % Baso % (Auto) % Immature Gran # (Auto) (0.00-0.02) K/uL Neut # (Auto) (1.4-6.5) K/uL Lymph # (Auto) (1.2-3.4) K/uL Cottle # (Auto) (0.11-0.59) K/uL Eos # (Auto) (0-0.5) K/uL Baso # (Auto) (0-0.2) K/uL RBC Morphology Sodium (136-145) mmol/L Potassium (3.5-5.1) mmol/L Chloride (98-107) mmol/L Carbon Dioxide (21-32) mmol/L Anion Gap (3-11) BUN (7-18) mg/dl Creatinine (0.6-1.2) mg/dl Est Cr Clr Drug Dosing ml/min Est GFR ( Amer) Est GFR (Non-Af Amer) BUN/Creatinine Ratio (10-20) Glucose (70-99) mg/dl POC Glucose (70-99) Lactate (0.4-2.0) mmol/L Calcium (8.5-10.1) mg/dl Phosphorus (2.5-4.9) mg/dl Magnesium (1.8-2.4) mg/dl Total Bilirubin (0.2-1) mg/dl AST (15-37) U/L ALT (12-78) U/L Alkaline Phosphatase (45-117) U/L Total Protein (6.4-8.2) gm/dl Albumin (3.4-5.0) gm/dl Globulin (2.5-4.0) gm/dl Albumin/Globulin Ratio (0.9-2) Random Cortisol mcg/dl Pleural Fluid Source RIGHT LUNG Pleural Color STRAW Pleural Appearance CLOUDY Pleural pH 7.31 (7.3-7.4) Pleural WBC 87649 /uL Pleural RBC 8000 /uL Pleural Polynuclear % 90.0 % Pleural Mononuclear % 10.0 % Pleural Total Protein 2.6 g/dl Pleural LDH 811 U/L Pleural Glucose 135 mg/dl Pleural Amylase 6 U/L Pleural Cholesterol Pending Nasal Screen MRSA (PCR) (Negative) 04/21/19 04/21/19 04/21/19 Range/Units 03:42 03:42 03:42 WBC 16.35 H (4.8-10.8) K/uL RBC 3.14 L (4.2-5.4) M/uL Hgb 7.9 L (12.0-16.0) g/dL Hct 23.2 L (37-47) % MCV 73.9 L (80-100) fL MCH 25.2 (25-34) pg MCHC 34.1 (32-36) g/dL RDW Std Deviation 41.2 (36.4-46.3) fL RDW Coeff of Mine 15.2 H (11.5-14.5) % Plt Count 350 (130-400) K/uL MPV 9.4 (7.4-10.4) fL Immature Gran % (Auto) 0.6 % Neut % (Auto) 88.1 % Lymph % (Auto) 3.7 % Cottle % (Auto) 7.3 % Eos % (Auto) 0.2 % Baso % (Auto) 0.1 % Immature Gran # (Auto) 0.09 H (0.00-0.02) K/uL Neut # (Auto) 14.40 H (1.4-6.5) K/uL Lymph # (Auto) 0.61 L (1.2-3.4) K/uL Cottle # (Auto) 1.20 H (0.11-0.59) K/uL Eos # (Auto) 0.03 (0-0.5) K/uL Baso # (Auto) 0.02 (0-0.2) K/uL RBC Morphology Unremarkable Sodium 137 (136-145) mmol/L Potassium 3.3 L (3.5-5.1) mmol/L Chloride 105 (98-107) mmol/L Carbon Dioxide 25 (21-32) mmol/L Anion Gap 7.0 (3-11) BUN 8 D (7-18) mg/dl Creatinine 0.49 L (0.6-1.2) mg/dl Est Cr Clr Drug Dosing 181.9 ml/min Est GFR ( Amer) 140.3 Est GFR (Non-Af Amer) 121.0 BUN/Creatinine Ratio 16.8 (10-20) Glucose 167 H (70-99) mg/dl POC Glucose (70-99) Lactate (0.4-2.0) mmol/L Calcium 7.0 L (8.5-10.1) mg/dl Phosphorus 1.5 L* (2.5-4.9) mg/dl Magnesium 2.2 (1.8-2.4) mg/dl Total Bilirubin 0.5 (0.2-1) mg/dl AST 8 L (15-37) U/L ALT 13 (12-78) U/L Alkaline Phosphatase 72 (45-117) U/L Total Protein 5.4 L (6.4-8.2) gm/dl Albumin 2.1 L (3.4-5.0) gm/dl Globulin 3.3 (2.5-4.0) gm/dl Albumin/Globulin Ratio 0.6 L (0.9-2) Random Cortisol 45.39 mcg/dl Pleural Fluid Source Pleural Color Pleural Appearance Pleural pH (7.3-7.4) Pleural WBC /uL Pleural RBC /uL Pleural Polynuclear % % Pleural Mononuclear % % Pleural Total Protein g/dl Pleural LDH U/L Pleural Glucose mg/dl Pleural Amylase U/L Pleural Cholesterol Nasal Screen MRSA (PCR) (Negative) 04/21/19 04/21/19 04/20/19 Range/Units 03:42 02:55 21:54 WBC (4.8-10.8) K/uL RBC (4.2-5.4) M/uL Hgb (12.0-16.0) g/dL Hct (37-47) % MCV (80-100) fL MCH (25-34) pg MCHC (32-36) g/dL RDW Std Deviation (36.4-46.3) fL RDW Coeff of Mine (11.5-14.5) % Plt Count (130-400) K/uL MPV (7.4-10.4) fL Immature Gran % (Auto) % Neut % (Auto) % Lymph % (Auto) % Cottle % (Auto) % Eos % (Auto) % Baso % (Auto) % Immature Gran # (Auto) (0.00-0.02) K/uL Neut # (Auto) (1.4-6.5) K/uL Lymph # (Auto) (1.2-3.4) K/uL Cottle # (Auto) (0.11-0.59) K/uL Eos # (Auto) (0-0.5) K/uL Baso # (Auto) (0-0.2) K/uL RBC Morphology Sodium (136-145) mmol/L Potassium (3.5-5.1) mmol/L Chloride (98-107) mmol/L Carbon Dioxide (21-32) mmol/L Anion Gap (3-11) BUN (7-18) mg/dl Creatinine (0.6-1.2) mg/dl Est Cr Clr Drug Dosing ml/min Est GFR ( Amer) Est GFR (Non-Af Amer) BUN/Creatinine Ratio (10-20) Glucose (70-99) mg/dl POC Glucose 111 H (70-99) Lactate 0.8 (0.4-2.0) mmol/L Calcium (8.5-10.1) mg/dl Phosphorus (2.5-4.9) mg/dl Magnesium (1.8-2.4) mg/dl Total Bilirubin (0.2-1) mg/dl AST (15-37) U/L ALT (12-78) U/L Alkaline Phosphatase (45-117) U/L Total Protein (6.4-8.2) gm/dl Albumin (3.4-5.0) gm/dl Globulin (2.5-4.0) gm/dl Albumin/Globulin Ratio (0.9-2) Random Cortisol mcg/dl Pleural Fluid Source Pleural Color Pleural Appearance Pleural pH (7.3-7.4) Pleural WBC /uL Pleural RBC /uL Pleural Polynuclear % % Pleural Mononuclear % % Pleural Total Protein g/dl Pleural LDH U/L Pleural Glucose mg/dl Pleural Amylase U/L Pleural Cholesterol Nasal Screen MRSA (PCR) Negative (Negative) 04/20/19 04/20/19 04/20/19 Range/Units 17:41 17:14 15:51 WBC 18.11 H (4.8-10.8) K/uL RBC 3.46 L (4.2-5.4) M/uL Hgb 8.6 L 8.9 L (12.0-16.0) g/dL Hct 25.7 L (37-47) % MCV 74.3 L (80-100) fL MCH 24.9 L (25-34) pg MCHC 33.5 (32-36) g/dL RDW Std Deviation 41.7 (36.4-46.3) fL RDW Coeff of Mine 15.4 H (11.5-14.5) % Plt Count 389 (130-400) K/uL MPV 9.4 (7.4-10.4) fL Immature Gran % (Auto) 0.6 % Neut % (Auto) 86.1 % Lymph % (Auto) 4.7 % Cottle % (Auto) 8.0 % Eos % (Auto) 0.5 % Baso % (Auto) 0.1 % Immature Gran # (Auto) 0.10 H (0.00-0.02) K/uL Neut # (Auto) 15.61 H (1.4-6.5) K/uL Lymph # (Auto) 0.85 L (1.2-3.4) K/uL Cottle # (Auto) 1.44 H (0.11-0.59) K/uL Eos # (Auto) 0.09 (0-0.5) K/uL Baso # (Auto) 0.02 (0-0.2) K/uL RBC Morphology Sodium (136-145) mmol/L Potassium (3.5-5.1) mmol/L Chloride (98-107) mmol/L Carbon Dioxide (21-32) mmol/L Anion Gap (3-11) BUN (7-18) mg/dl Creatinine (0.6-1.2) mg/dl Est Cr Clr Drug Dosing ml/min Est GFR ( Amer) Est GFR (Non-Af Amer) BUN/Creatinine Ratio (10-20) Glucose (70-99) mg/dl POC Glucose 128 H (70-99) Lactate (0.4-2.0) mmol/L Calcium (8.5-10.1) mg/dl Phosphorus (2.5-4.9) mg/dl Magnesium (1.8-2.4) mg/dl Total Bilirubin (0.2-1) mg/dl AST (15-37) U/L ALT (12-78) U/L Alkaline Phosphatase (45-117) U/L Total Protein (6.4-8.2) gm/dl Albumin (3.4-5.0) gm/dl Globulin (2.5-4.0) gm/dl Albumin/Globulin Ratio (0.9-2) Random Cortisol mcg/dl Pleural Fluid Source Pleural Color Pleural Appearance Pleural pH (7.3-7.4) Pleural WBC /uL Pleural RBC /uL Pleural Polynuclear % % Pleural Mononuclear % % Pleural Total Protein g/dl Pleural LDH U/L Pleural Glucose mg/dl Pleural Amylase U/L Pleural Cholesterol Nasal Screen MRSA (PCR) (Negative) 04/20/19 04/20/19 04/20/19 Range/Units 11:33 09:22 09:10 WBC (4.8-10.8) K/uL RBC (4.2-5.4) M/uL Hgb (12.0-16.0) g/dL Hct (37-47) % MCV (80-100) fL MCH (25-34) pg MCHC (32-36) g/dL RDW Std Deviation (36.4-46.3) fL RDW Coeff of Mine (11.5-14.5) % Plt Count (130-400) K/uL MPV (7.4-10.4) fL Immature Gran % (Auto) % Neut % (Auto) % Lymph % (Auto) % Cottle % (Auto) % Eos % (Auto) % Baso % (Auto) % Immature Gran # (Auto) (0.00-0.02) K/uL Neut # (Auto) (1.4-6.5) K/uL Lymph # (Auto) (1.2-3.4) K/uL Cottle # (Auto) (0.11-0.59) K/uL Eos # (Auto) (0-0.5) K/uL Baso # (Auto) (0-0.2) K/uL RBC Morphology Sodium 132 L (136-145) mmol/L Potassium 3.4 L (3.5-5.1) mmol/L Chloride 104 (98-107) mmol/L Carbon Dioxide 20 L (21-32) mmol/L Anion Gap 8.0 (3-11) BUN 19 H (7-18) mg/dl Creatinine 0.72 D (0.6-1.2) mg/dl Est Cr Clr Drug Dosing 123.8 ml/min Est GFR ( Amer) 120.6 Est GFR (Non-Af Amer) 104.0 BUN/Creatinine Ratio 26.1 H (10-20) Glucose 147 H (70-99) mg/dl POC Glucose 196 H (70-99) Lactate 1.6 (0.4-2.0) mmol/L Calcium 7.7 L (8.5-10.1) mg/dl Phosphorus (2.5-4.9) mg/dl Magnesium (1.8-2.4) mg/dl Total Bilirubin 0.7 (0.2-1) mg/dl AST 11 L (15-37) U/L ALT 16 (12-78) U/L Alkaline Phosphatase 76 (45-117) U/L Total Protein 5.8 L (6.4-8.2) gm/dl Albumin 2.1 L (3.4-5.0) gm/dl Globulin 3.7 (2.5-4.0) gm/dl Albumin/Globulin Ratio 0.6 L (0.9-2) Random Cortisol mcg/dl Pleural Fluid Source Pleural Color Pleural Appearance Pleural pH (7.3-7.4) Pleural WBC /uL Pleural RBC /uL Pleural Polynuclear % % Pleural Mononuclear % % Pleural Total Protein g/dl Pleural LDH U/L Pleural Glucose mg/dl Pleural Amylase U/L Pleural Cholesterol Nasal Screen MRSA (PCR) (Negative) Diagnostic Findings XR chest 1V portable CLINICAL HISTORY: placement of NGT COMPARISON STUDY: 04/21/2019 FINDINGS: The cardiac and mediastinal contours remain stable. There is a nasogastric tube within the stomach. There is a right sided chest tube. There are low lung volumes with bilateral parietal airspace opacities. IMPRESSION: 1. Nasogastric tube in the stomach 2. No change in the position of right-sided chest tube. No evidence of pneumothorax 3. Low lung volumes with bilateral pulmonary airspace opacities
--- NOTE | 2019-04-21 09:48 | Consultation Report ---
DATE OF CONSULTATION: 04/21/2019 REASON FOR CONSULTATION: Right hydropneumothorax. HISTORY OF PRESENT ILLNESS: Ms. Woody is a 39-year-old female who underwent a laparoscopic hysterectomy with left salpingo-oophorectomy and extensive lysis of adhesions by Dr. Stanley Zimmerman back on 04/16/2019. This was performed for endometriosis and chronic pelvic pain. She did well with this and looked good the first 2 days and was discharged on postop day #1. She came back with signs and symptoms of an intraabdominal process and I was called last night by Dr. Zimmerman as the patient had a right hydropneumothorax. She also had obvious contrast to her abdomen and he was getting ready to take her back to the operating room for an exploratory laparotomy. This was performed without difficulty. He drained abdominal abscess, created an ileostomy, and placed a right chest tube, so far drained about 300 mL of serous fluid. She has no air leak and no pneumothorax and her hydropneumothorax resolved with this 24-D[address] chest tube[address] Zimmerman has asked me to evaluate her. It is unusual and not quite clear why she has this hydropneumothorax. PAST MEDICAL HISTORY: 1. Diabetes mellitus. 2. Gastroesophageal reflux disease. 3. Hypothyroidism. 4. Obesity. 5. Depression. 6. Endometriosis. PAST SURGICAL HISTORY: 1. Right oophorectomy. 2. History of laparoscopic hysterectomy. 3. Ovarian cystectomy. MEDICATIONS: Please see chart. ALLERGIES: MORPHINE CAUSES NAUSEA AND VOMITING, but which is not really an allergy. SOCIAL HISTORY: The patient has never smoked cigarettes. She is employed and lives with her . FAMILY MEDICAL HISTORY: The patient's grandfather from esophageal cancer. She has diabetes in both of her grandmothers. REVIEW OF SYSTEMS: The patient was pale, felt "very bad" coming into the hospital last night before her surgery. She feels better, but still is having some abdominal pain as would be expected this morning. She is awake and alert. She denied chest pain or palpitations before this occurred. She had no GI or symptoms. The other systems were reviewed and were negative. Please refer to the history of present illness for her other symptoms. PHYSICAL EXAMINATION: GENERAL: This is a 5 feet 5 inch, 218 pound female who is awake and alert, on 8 liters of O2. She is pale. HEENT: Her sclerae are pale. Her pupils are small but reactive. Her oral mucosa is dry. Tongue is midline. NECK: Thick, but supple. No lymphadenopathy or neck vein distention. CARDIAC: She has a few rhonchi on the right, but no wheezing. She has decreased breath sounds throughout. HEART: Heart sounds are distant but tachycardic about 110 beats per minute. ABDOMEN: Her abdominal dressing is dry. EXTREMITIES: She has sequential compression devices on, but has palpable pedal pulses. She has no joint effusions. NEUROLOGIC: She is moving all extremities. ASSESSMENT AND PLAN: Right hydropneumothorax of unknown etiology. The fluid itself is not surprising as she could easily have a reactive effusion. We are going to sample some of the fluid and sent it off to the lab today. We will follow along and manage her chest tube. I would like to thank Dr. Zimmerman for asking me to see this patient. [facility]ITALAm[facility]
--- NOTE | 2019-04-21 10:23 | Progress Note ---
Date of Service April 21, 2019 Subjective [employer]UAL [employer] MANAGER Note S: Pt doing well Alert and awake with NG tube. Pt denies pain, SOB or discomfort O; Stable BP, Tachy, afebrile Ht; sinus tach Lung; Rt thoracostomy tube Abd. dressing with drains and ileostomy Ext; No C/C/+ edema Labs; Reviewed. WBC; 16.5, H/H: 01/19/23. a/p Ex. Lap drainage of prlvic fluid ileostomy Thoracotomy Surgery, critical care and pulm. on consult Results & Data Vital Signs (Past 12 Hours) Vital Signs Temp Pulse Pulse Resp BP BP Pulse Ox 04/21/19 09:30 110 H 31 H 136/77 99 04/21/19 09:00 110 H 29 H 134/77 98 04/21/19 08:30 110 H 29 H 131/80 99 04/21/19 08:00 111 H 23 134/84 98 04/21/19 07:30 111 H 27 H 130/80 99 04/21/19 07:00 118 H 29 H 139/82 97 04/21/19 06:00 122 H 28 H 139/80 100 04/21/19 05:30 105 H 22 142/63 H 99 04/21/19 05:00 107 H 22 135/72 99 04/21/19 04:30 108 H 23 132/70 99 04/21/19 04:00 37.0 C 112 H 25 H 105/63 100 04/21/19 03:45 112 H 24 133/72 100 04/21/19 03:30 111 H 18 117/68 98 04/21/19 03:15 118 H 26 H 121/70 100 04/21/19 03:00 121 H 19 121/72 99 04/21/19 02:45 118 H 23 133/69 99 04/21/19 02:40 117 H 28 H 126/78 100 04/21/19 02:35 118 H 28 H 131/80 100 04/21/19 02:33 117 H 27 H 128/82 100 04/21/19 02:30 37.2 C 118 H 117 H 24 125/79 128/82 100 04/21/19 02:25 119 H 22 125/79 100 04/21/19 02:15 120 H 24 132/84 100 04/21/19 02:07 127 H 04/21/19 02:05 128 H 22 134/83 96 04/21/19 02:03 37.0 C 130 H 20 133/91 100
[2019-04-21] MEDS: NORMOSOL-R 1,000 ML IV SCH ×2 (10:29→23:29)
[2019-04-21] MEDS ORDERED: ZIPRASIDONE 20 MG/ML SDV IM ONE (10:30)
[2019-04-21] MEDS: INSULIN GLARGINE SOLOSTAR 100 UNITS/ML 3 ML PEN SC SCH (12:14)
[2019-04-21] MEDS: MoRPHine SULFATE 4 MG/ML 1 ML CARP\\VIAL IV PRN ×2 (12:18→12:34)
[2019-04-21] MEDS: VANCOMYCIN HCL 1,250 MG in SODIUM CHLORIDE 0.9% 250 ML IV SCH ×2 (12:19→19:34)
[2019-04-21] MEDS: ONDANSETRON INJ 2 MG/ML 2 ML VIAL IV PRN (12:33)
--- NOTE | 2019-04-21 12:49 | Pharmacy Report ---
Pharmacy Abx Dose Short Note - Date of Service April 21, 2019 - Assessment & Plan Assessment * 39 year old F receiving ZOSYN + VANCOMYCIN IV therapy for intra-abd infection (perf bowel, recent h/o lap hysterectomy w/ L salpingo-oophrectomy 04/16/19) as well as hydropneumothorax and CXR w/ b/l opacities * Day # 3 of Zosyn, Day # 1 Vancomycin * Patient is now s/p exp lap w/ drainage of intraabd fluid collections, ileostomy and chest tube placement * BLCXs and pleural fluid cx are pending * MRSA nasal swab was negative * Pt remains tachycardic, tachypneic, but is afebrile and MAPs > 70 Plan Vancomycin * Load: 2500mg (~24mg/kg) x 1 * Maint: 1250mg (~12mg/kg) IV Q 8 hrs * Goal trough level for sepsis / pulm infxn : 15 to 20 mcg/mL * Trough level ordered for: 04/22/19 w/ 3rd maint dose (drawn early due to aggressive dosing regimen) * P'kinetic estimates (Vd 0.55L/kg, half-life ~6-7 hrs) Zosyn * continue 4.5gm ext-infusion Q 8 hrs * eCrCl > 20cc/min; BMI > 35 Pharmacy will continue to follow and will adjust dose/frequency as necessary. Thank you.
--- NOTE | 2019-04-21 14:41 | Anesthesiology Progress Note ---
Date of Service April 21, 2019 Anesthesia Post Procedure Vital Signs Vital Signs: Temp Pulse Pulse Resp BP BP Pulse Ox 04/21/19 10:30 105 H 25 H 136/80 99 04/21/19 10:00 108 H 29 H 129/76 99 04/21/19 09:30 110 H 31 H 136/77 99 04/21/19 09:00 110 H 29 H 134/77 98 04/21/19 08:30 110 H 29 H 131/80 99 04/21/19 08:00 111 H 23 134/84 98 04/21/19 07:30 111 H 27 H 130/80 99 04/21/19 07:00 118 H 29 H 139/82 97 04/21/19 06:00 122 H 28 H 139/80 100 04/21/19 05:30 105 H 22 142/63 H 99 04/21/19 05:00 107 H 22 135/72 99 04/21/19 04:30 108 H 23 132/70 99 04/21/19 04:00 37.0 C 112 H 25 H 105/63 100 04/21/19 03:45 112 H 24 133/72 100 04/21/19 03:30 111 H 18 117/68 98 04/21/19 03:15 118 H 26 H 121/70 100 04/21/19 03:00 121 H 19 121/72 99 04/21/19 02:45 118 H 23 133/69 99 04/21/19 02:40 117 H 28 H 126/78 100 04/21/19 02:35 118 H 28 H 131/80 100 04/21/19 02:33 117 H 27 H 128/82 100 04/21/19 02:30 37.2 C 118 H 117 H 24 125/79 128/82 100 04/21/19 02:25 119 H 22 125/79 100 04/21/19 02:15 120 H 24 132/84 100 04/21/19 02:07 127 H 04/21/19 02:05 128 H 22 134/83 96 04/21/19 02:03 37.0 C 130 H 20 133/91 100 04/20/19 20:03 37.2 C 120 H 28 H 130/74 92 04/20/19 16:24 36.8 C 120 H 16 137/83 92 04/20/19 16:00 110 H Pain Intensity Abdomen: Pain Intensity: 5 Notes Mental Status: alert / awake / arousable and participated in evaluation Patient Amnestic to Procedure: Yes Nausea / Vomiting: adequately controlled Pain: adequately controlled Airway Patency, RR, SpO2: stable & adequate BP & HR: stable & adequate Hydration State: stable & adequate Anesthetic Complications: no major complications apparent
--- NOTE | 2019-04-21 16:04 | Critical Care Progress Note ---
Date of Service April 21, 2019 Assessment & Plan (1) Admitted to intensive care unit: Reason Critically Ill: status post exploratory laparotomy with washout and ileostomy placement as well as chest tube placement in the setting of RIGHT sided hydropneumothorax NEURO - CAM ICU: NEGATIVE Restarted Paroxetine, Seroquel, Topiramate. Also gave Geodon today given pt complaints of hallucinations at night CARDIAC/VASCULAR - Tachycardia- Continue with aggressive IV fluids Pressors if needed. Monitor on telemetry. Likely component of pain RESPIRATORY - RIGHT-sided hydropneumothorax status post chest tube placement Unknown etiology. Possibly reactive effusion. Fluid sent to the lab today Appreciate Thoracic surgery GI/NUTRITION - Abdominal abscess and pneumoperitoneum POD # 1 s/p exploratory laparotomy, drainage of pelvic fluid collections, creation of loop ileostomy, and placement of right thoracostomy tube Continue with Zosyn and Vancomycin NG tube in place. Ileostomy functioning Prophylaxis with Famotidine Cont NPO Normosol at 80 PRN Zofran and Morphine RENAL/LYTES - No significant electrolyte derangements IVF: Normosol at 80 - [place] in place - Strict I&Os. ENDO - History of diabetes- BSGs per unit protocol. ISS --> gtt per unit policy. Hypothyroidism- Cont IV Synthroid while n.p.o. HEME - Stable H&H. Will monitor postoperatively. ID - Continue vancomycin and Zosyn as above Monitor for worsening signs of infection. LINES/IV ACCESS - PIVs x2, [place], LAVELL drain x2. DVT PROPHYLAXIS - SCD's. Will defer to general surgery status post exploratory laparotomy FULL CODE DISPO: Stable for Downgrade out of ICU Supervising Physician Co-Signing Physician Notes Dr. Magaña was resident physician during care of patient. I separately evaluated patient for mata portions of the history and the exam. I was present during the critical portion of medical decision making, and I discussed the case with the resident. I generally agree with the findings and plan. Patient was discussed in multidisciplinary rounds I also discussed the patient with Dr. Zimmerman of the surgery service. Patient is complaining of hallucinations, she is receiving sips and some medication through the NG tube, I feel it is most advisable to start her neuropsychiatric medications. She was also given a dose of Geodon as she has been unable to take her psychotropic medications for the last couple of days I feel a dose of D. Prabhu may hopefully suppress some of the active hallucinations. Consideration is also given to ICU delirium given the multiple medical issues she has going on however I think it is most likely related to inability to tolerate chronic medications for the past several days. At this time the patient is not requiring vasoactive medication, pain is somewhat controlled, she is stable for downgrade/transfer out of the ICU. Subjective 39 yo F found in bed this AM in NAD. Pt notes pain improved from yesterday but still present. Abdominal pain at incision site. Denies nausea or vomiting. Ostomy functioning No other acute concerns or complaints. Review of Systems Review of Systems: All systems reviewed & are unremarkable except as noted in HPI & below Physical Exam Constitutional: + obese Eyes: PERRL, conjunctivae normal, anicteric sclerae ENMT: external ear and nose normal, oropharynx normal Respiratory: normal respiratory effort, lungs clear to auscultation Cardiovascular: RRR, no murmur, no edema Gastrointestinal (Abdomen): abdomen tender at incision site , soft; no guarding or rebound ileostomy full with liquid stool, ostomy pink Skin: no rashes, warm and dry Psychiatric: A+Ox3, euthymic affect Results & Data Vital Signs (Past 12 Hours) Vital Signs Temp Pulse Resp BP Pulse Ox 04/21/19 15:00 112 H 22 136/81 98 04/21/19 14:30 103 H 23 127/80 99 04/21/19 14:00 102 H 22 129/87 99 04/21/19 13:30 103 H 23 138/77 99 04/21/19 13:00 100 H 24 133/77 99 04/21/19 12:30 103 H 24 139/78 99 04/21/19 12:00 36.8 C 106 H 30 H 136/81 99 04/21/19 11:30 109 H 26 H 132/82 100 04/21/19 11:00 108 H 25 H 140/87 98 04/21/19 10:31 106 H 26 H 99 04/21/19 10:30 105 H 25 H 136/80 99 04/21/19 10:00 108 H 29 H 129/76 99 04/21/19 09:30 110 H 31 H 136/77 99 04/21/19 09:00 110 H 29 H 134/77 98 04/21/19 08:30 110 H 29 H 131/80 99 04/21/19 08:00 38.1 C H 111 H 23 134/84 98 04/21/19 07:30 111 H 27 H 130/80 99 04/21/19 07:00 118 H 29 H 139/82 97 04/21/19 06:00 122 H 28 H 139/80 100 04/21/19 05:30 105 H 22 142/63 H 99 04/21/19 05:00 107 H 22 135/72 99 04/21/19 04:30 108 H 23 132/70 99 04/21/19 04:00 37.0 C 112 H 25 H 105/63 100 Laboratory Results Laboratory Results - last 24 hr 04/20/19 04/20/19 04/20/19 15:51 17:14 17:41 WBC 18.11 H RBC 3.46 L Hgb 8.9 L 8.6 L Hct 25.7 L MCV 74.3 L MCH 24.9 L MCHC 33.5 RDW Std Deviation 41.7 RDW Coeff of Mine 15.4 H Plt Count 389 MPV 9.4 Immature Gran % (Auto) 0.6 Neut % (Auto) 86.1 Lymph % (Auto) 4.7 [place] % (Auto) 8.0 Eos % (Auto) 0.5 Baso % (Auto) 0.1 Immature Gran # (Auto) 0.10 H Neut # (Auto) 15.61 H Lymph # (Auto) 0.85 L [place] # (Auto) 1.44 H Eos # (Auto) 0.09 Baso # (Auto) 0.02 RBC Morphology Sodium Potassium Chloride Carbon Dioxide Anion Gap BUN Creatinine Est Cr Clr Drug Dosing Est GFR ( Amer) Est GFR (Non-Af Amer) BUN/Creatinine Ratio Glucose POC Glucose 128 H Lactate Calcium Phosphorus Magnesium Total Bilirubin AST ALT Alkaline Phosphatase Total Protein Albumin Globulin Albumin/Globulin Ratio Random Cortisol Pleural Fluid Source Pleural Color Pleural Appearance Pleural pH Pleural WBC Pleural RBC Pleural Polynuclear % Pleural Mononuclear % Pleural Total Protein Pleural LDH Pleural Glucose Pleural Amylase Pleural Cholesterol Nasal Screen MRSA (PCR) 04/20/19 04/21/19 04/21/19 21:54 02:55 03:42 WBC RBC Hgb Hct MCV MCH MCHC RDW Std Deviation RDW Coeff of Mine Plt Count MPV Immature Gran % (Auto) Neut % (Auto) Lymph % (Auto) [place] % (Auto) Eos % (Auto) Baso % (Auto) Immature Gran # (Auto) Neut # (Auto) Lymph # (Auto) [place] # (Auto) Eos # (Auto) Baso # (Auto) RBC Morphology Sodium Potassium Chloride Carbon Dioxide Anion Gap BUN Creatinine Est Cr Clr Drug Dosing Est GFR ( Amer) Est GFR (Non-Af Amer) BUN/Creatinine Ratio Glucose POC Glucose 111 H Lactate 0.8 Calcium Phosphorus Magnesium Total Bilirubin AST ALT Alkaline Phosphatase Total Protein Albumin Globulin Albumin/Globulin Ratio Random Cortisol Pleural Fluid Source Pleural Color Pleural Appearance Pleural pH Pleural WBC Pleural RBC Pleural Polynuclear % Pleural Mononuclear % Pleural Total Protein Pleural LDH Pleural Glucose Pleural Amylase Pleural Cholesterol Nasal Screen MRSA (PCR) Negative 04/21/19 04/21/19 04/21/19 03:42 03:42 03:42 WBC 16.35 H RBC 3.14 L Hgb 7.9 L Hct 23.2 L MCV 73.9 L MCH 25.2 MCHC 34.1 RDW Std Deviation 41.2 RDW Coeff of Mine 15.2 H Plt Count 350 MPV 9.4 Immature Gran % (Auto) 0.6 Neut % (Auto) 88.1 Lymph % (Auto) 3.7 [place] % (Auto) 7.3 Eos % (Auto) 0.2 Baso % (Auto) 0.1 Immature Gran # (Auto) 0.09 H Neut # (Auto) 14.40 H Lymph # (Auto) 0.61 L [place] # (Auto) 1.20 H Eos # (Auto) 0.03 Baso # (Auto) 0.02 RBC Morphology Unremarkable Sodium 137 Potassium 3.3 L Chloride 105 Carbon Dioxide 25 Anion Gap 7.0 BUN 8 D Creatinine 0.49 L Est Cr Clr Drug Dosing 181.9 Est GFR ( Amer) 140.3 Est GFR (Non-Af Amer) 121.0 BUN/Creatinine Ratio 16.8 Glucose 167 H POC Glucose Lactate Calcium 7.0 L Phosphorus 1.5 L* Magnesium 2.2 Total Bilirubin 0.5 AST 8 L ALT 13 Alkaline Phosphatase 72 Total Protein 5.4 L Albumin 2.1 L Globulin 3.3 Albumin/Globulin Ratio 0.6 L Random Cortisol 45.39 Pleural Fluid Source Pleural Color Pleural Appearance Pleural pH Pleural WBC Pleural RBC Pleural Polynuclear % Pleural Mononuclear % Pleural Total Protein Pleural LDH Pleural Glucose Pleural Amylase Pleural Cholesterol Nasal Screen MRSA (PCR) 04/21/19 04/21/19 04/21/19 07:45 07:45 07:45 WBC RBC Hgb Hct MCV MCH MCHC RDW Std Deviation RDW Coeff of Mine Plt Count MPV Immature Gran % (Auto) Neut % (Auto) Lymph % (Auto) [place] % (Auto) Eos % (Auto) Baso % (Auto) Immature Gran # (Auto) Neut # (Auto) Lymph # (Auto) [place] # (Auto) Eos # (Auto) Baso # (Auto) RBC Morphology Sodium Potassium Chloride Carbon Dioxide Anion Gap BUN Creatinine Est Cr Clr Drug Dosing Est GFR ( Amer) Est GFR (Non-Af Amer) BUN/Creatinine Ratio Glucose POC Glucose Lactate Calcium Phosphorus Magnesium Total Bilirubin AST ALT Alkaline Phosphatase Total Protein Albumin Globulin Albumin/Globulin Ratio Random Cortisol Pleural Fluid Source RIGHT LUNG Pleural Color STRAW Pleural Appearance CLOUDY Pleural pH 7.31 Pleural WBC 51419 Pleural RBC 8000 Pleural Polynuclear % 90.0 Pleural Mononuclear % 10.0 Pleural Total Protein 2.6 Pleural LDH 811 Pleural Glucose 135 Pleural Amylase 6 Pleural Cholesterol Pending Nasal Screen MRSA (PCR) 04/21/19 11:19 WBC RBC Hgb Hct MCV MCH MCHC RDW Std Deviation RDW Coeff of Mine Plt Count MPV Immature Gran % (Auto) Neut % (Auto) Lymph % (Auto) [place] % (Auto) Eos % (Auto) Baso % (Auto) Immature Gran # (Auto) Neut # (Auto) Lymph # (Auto) [place] # (Auto) Eos # (Auto) Baso # (Auto) RBC Morphology Sodium Potassium Chloride Carbon Dioxide Anion Gap BUN Creatinine Est Cr Clr Drug Dosing Est GFR ( Amer) Est GFR (Non-Af Amer) BUN/Creatinine Ratio Glucose POC Glucose 141 H Lactate Calcium Phosphorus Magnesium Total Bilirubin AST ALT Alkaline Phosphatase Total Protein Albumin Globulin Albumin/Globulin Ratio Random Cortisol Pleural Fluid Source Pleural Color Pleural Appearance Pleural pH Pleural WBC Pleural RBC Pleural Polynuclear % Pleural Mononuclear % Pleural Total Protein Pleural LDH Pleural Glucose Pleural Amylase Pleural Cholesterol Nasal Screen MRSA (PCR) Medications Administered Current Inpatient Medications Al Hydrox/Mg Hydrox/Simethicone (Maalox) 30 ml NG Q6H [facility] Stop: 05/21/19 02:54 Last Admin: 04/21/19 15:42 Dose: 30 ml Documented by: Piperacillin Sod/Tazobactam (Sod 4.5 gm/ Dextrose) 120 mls @ 30 mls/hr IV Q8H [facility]; Protocol Stop: 04/30/19 00:00 Last Admin: 04/21/19 12:19 Dose: 30 mls/hr Documented by: Famotidine 20 mg/ Syringe 5 mls @ 2.5 mls/min IV Q12H [facility] Stop: 05/21/19 03:59 Last Admin: 04/21/19 03:42 Dose: 2.5 mls/min Documented by: Vancomycin HCl 1,250 mg/ (Sodium Chloride) 275 mls @ 125 mls/hr IV Q8H [facility] Stop: 05/01/19 11:59 Last Infusion: 04/21/19 14:43 Dose: Infused Documented by: Parenteral Electrolytes (Normosol-R) 1,000 mls @ 80 mls/hr IV .[id number] [facility] Stop: 05/21/19 09:44 Last Admin: 04/21/19 10:29 Dose: 80 mls/hr Documented by: Insulin Aspart (Novolog Flexpen) 0 units SC Q4 [facility] Stop: 05/21/19 15:59 Insulin Glargine (Lantus Solostar Pen) 15 units SC DAILY [facility] Stop: 05/21/19 10:59 Last Admin: 04/21/19 12:14 Dose: Not Given Documented by: Levothyroxine Sodium (Synthroid) 75 mcg PO DAILYBB [facility] Stop: 05/22/19 06:29 Miscellaneous Information (Consult) 1 ea N/A UD PRN PRN Reason: Consult Stop: 05/19/19 20:29 Miscellaneous Information (Consult) 1 ea N/A UD PRN PRN Reason: Consult Stop: 05/21/19 03:06 Morphine Sulfate (Morphine Sulfate) 4 mg IV Q1H PRN PRN Reason: Pain Stop: 05/05/19 02:54 Morphine Sulfate (Morphine Sulfate) 2 mg IV Q4H PRN PRN Reason: Pain Stop: 05/05/19 12:30 Ondansetron HCl (Zofran) 4 mg IV Q6H PRN PRN Reason: Nausea And Vomiting Stop: 05/19/19 20:00 Last Admin: 04/21/19 12:33 Dose: 4 mg Documented by: Paroxetine HCl (Paxil) 40 mg PO HS [facility] Stop: 05/21/19 20:59 Quetiapine Fumarate (Seroquel) 200 mg PO HS [facility] Stop: 05/21/19 20:59 Topiramate (Topamax) 100 mg PO HS [facility] Stop: 05/21/19 20:59 PG Care Time/CCT Total # of Minutes Spent Total Time Spent with Patient: Total time spent is greater than 50% in coordination of care (as documented) at patient's floor/unit and/or counseling patient: Resident Activity Tracking Resident Involvement: Resident Care Provided Care Provided: Adult Hospital Medicine
[2019-04-21] MEDS: INSULIN ASPART 100 UNITS/ML 3 ML PEN SC SCH ×2 (16:08→20:44)
[2019-04-21] MEDS: MoRPHine SULFATE 2 MG/ML CARP IV PRN (17:00)
--- NOTE | 2019-04-21 18:32 | Family Medicine Progress Note ---
Date of Service April 21, 2019 *This is a consult note * Assessment & Plan (1) Sepsis: 39 yo female with post-hysterectomy abscess formation and sepsis s/p laparotomy with lavage and ileostomy formation. Sepsis secondary to post-op hysterectomy abscess formation SIRS criteria met (HR > 90bpm and WBC >12,000) and infectious etiology identified (post op fluid collection seen on abdominal CT) -received 4.5 L of bolus fluid in addition to maintenance fluids (now on Normosol at 80mls/hr) Lactate improved from 1.8 to 0.8 04/21 -Per surgery note: rectal contrast leak into peritoneum visualized on CT scan from 04/20 was suggestive of bowel perforation; however surgeon unable to locate perforation site during laparotomy; ileostomy bag placed for fluid collection -continue broad-spectrum antibioticsZosyn and vancomycin R sided pneumothorax -visualized on CT scan 04/21; etiology unknown -chest tube placed during laparotomy evening of 04/20 - CT surgery following, appreciate recs Status post hysterectomy Continue pain control with oxycodone/acetaminophen prn Hypothyroidism Continue home dose Synthroid Non-insulin dependent diabetes mellitus Sliding scale while in hospital Mood disorder Continue home dose paroxetine, Seroquel, topiramate DVT prophylaxis: bilateral SCDs CODE STATUS: full FEN/GI: n.p.o. except for chips, sips, meds Dispo: ICU to jane/surg floor Supervising Physician Co-Signing Physician Notes Patient seen and examined with PGY-1 Dr. Sexton and PGY-3 Dr. Ramires. Agree with history, exam findings, assessment and plan of care as outlined. In brief, Ms. Woody is a 39 year old female with hx of depression/anxiety and diabetes who recently underwent laproscopic hysterectomy with extensive lysis of adhesions admitted for sepsis secondary to pelvic abscess. She underwent ex-lap , abscess drainage, ileostomy for large bowel perf and pelvic abscess. A chest tube was placed for a right hydrathorax. She was seen in the ICU in the morning. Labs and post-operative imaging reviewed. 1. Sepsis 2/2 pelvic abscess and bowel perf s/p lap hyst and SHARA and now exlap. Vanc and zosyn. [employer] CLERK and gen surg managing post-operative care. Continue vanc and zosyn. 2. Right hydrathorax. chest tube placed. Dr. Grady consulted. 3. DM. SSI. Carb consistent diet. 4. Depression.anxiety. Continuing home medications. Geodon given by ICU for hallucinations, but may be secondary to delirium. Would hold off on additional doses of geodon. Will continue to follow. Subjective Patient found in bed -- she was transferred to the ICU after surgery last night. She is pleasant and conversant but admits to being anxious Physical Exam Constitutional: WD/WN, vitals as above + ill appearing and + overweight Eyes: + anicteric sclerae ENMT: external ear and nose normal, oropharynx normal Neck: trachea midline, no thyromegaly Respiratory: normal respiratory effort, lungs clear to auscultation Auscultation: no crackles, no rales and no wheezes Cardiovascular: Heart Sounds: normal S1, normal S2 and + murmur (functional ) Gastrointestinal (Abdomen): Inspection/Auscultation: + abdominal wall ecchymosis (confined to demarcations placed by Dr. Hutchins 04/20), + significant pannus, + abdominal surgical scar, + abdominal surgical incision (covered by bandages; dried blood present under bandages ) and + abdominal surgical drain present ([address] draining pink-tinged serous fluid); abdomen not distended Percussion/Palpation: + abdomen tender (diffuse tenderness); no guarding ileostomy bag in place; draining thin, green fluid Skin: no rashes, warm and dry Neurologic: awake Psychiatric: A+Ox3, euthymic affect Results & Data Vital Signs (Past 12 Hours) Vital Signs Temp Pulse Resp BP Pulse Ox 04/21/19 17:31 104 H 28 H 96 04/21/19 17:30 108 H 24 125/84 95 04/21/19 17:01 108 H 35 H 95 04/21/19 17:00 108 H 31 H 140/88 94 04/21/19 16:31 109 H 31 H 97 04/21/19 16:30 110 H 23 127/84 98 04/21/19 16:01 102 H 25 H 99 04/21/19 16:00 102 H 24 136/77 99 04/21/19 15:31 103 H 24 98 04/21/19 15:30 37.1 C 106 H 27 H 139/78 99 04/21/19 15:00 112 H 22 136/81 98 04/21/19 14:30 103 H 23 127/80 99 10/09/19 14:00 102 H 22 129/87 99 04/21/19 13:30 103 H 23 138/77 99 04/21/19 13:00 100 H 24 133/77 99 04/21/19 12:30 103 H 24 139/78 99 04/21/19 12:00 36.8 C 106 H 30 H 136/81 99 04/21/19 11:30 109 H 26 H 132/82 100 04/21/19 11:00 108 H 25 H 140/87 98 04/21/19 10:31 106 H 26 H 99 04/21/19 10:30 105 H 25 H 136/80 99 04/21/19 10:00 108 H 29 H 129/76 99 04/21/19 09:30 110 H 31 H 136/77 99 04/21/19 09:00 110 H 29 H 134/77 98 04/21/19 08:30 110 H 29 H 131/80 99 04/21/19 08:00 38.1 C H 111 H 23 134/84 98 04/21/19 07:30 111 H 27 H 130/80 99 04/21/19 07:00 118 H 29 H 139/82 97 Laboratory Results 04/21/19 04/21/19 04/21/19 Range/Units 16:06 11:19 07:45 WBC (4.8-10.8) K/uL RBC (4.2-5.4) M/uL Hgb (12.0-16.0) g/dL Hct (37-47) % MCV (80-100) fL MCH (25-34) pg MCHC (32-36) g/dL RDW Std Deviation (36.4-46.3) fL RDW Coeff of Mine (11.5-14.5) % Plt Count (130-400) K/uL MPV (7.4-10.4) fL Immature Gran % (Auto) % Neut % (Auto) % Lymph % (Auto) % [place] % (Auto) % Eos % (Auto) % Baso % (Auto) % Immature Gran # (Auto) (0.00-0.02) K/uL Neut # (Auto) (1.4-6.5) K/uL Lymph # (Auto) (1.2-3.4) K/uL [place] # (Auto) (0.11-0.59) K/uL Eos # (Auto) (0-0.5) K/uL Baso # (Auto) (0-0.2) K/uL RBC Morphology Sodium (136-145) mmol/L Potassium (3.5-5.1) mmol/L Chloride (98-107) mmol/L Carbon Dioxide (21-32) mmol/L Anion Gap (3-11) BUN (7-18) mg/dl Creatinine (0.6-1.2) mg/dl Est Cr Clr Drug Dosing ml/min Est GFR ( Amer) Est GFR (Non-Af Amer) BUN/Creatinine Ratio (10-20) Glucose (70-99) mg/dl POC Glucose 131 H 141 H (70-99) Lactate (0.4-2.0) mmol/L Calcium (8.5-10.1) mg/dl Phosphorus (2.5-4.9) mg/dl Magnesium (1.8-2.4) mg/dl Total Bilirubin (0.2-1) mg/dl AST (15-37) U/L ALT (12-78) U/L Alkaline Phosphatase (45-117) U/L Total Protein (6.4-8.2) gm/dl Albumin (3.4-5.0) gm/dl Globulin (2.5-4.0) gm/dl Albumin/Globulin Ratio (0.9-2) Random Cortisol mcg/dl Pleural Fluid Source Pleural Color Pleural Appearance Pleural pH (7.3-7.4) Pleural WBC /uL Pleural RBC /uL Pleural Polynuclear % % Pleural Mononuclear % % Pleural Total Protein g/dl Pleural LDH U/L Pleural Glucose mg/dl Pleural Amylase U/L Pleural Cholesterol Pending Nasal Screen MRSA (PCR) (Negative) 04/21/19 04/21/19 04/21/19 Range/Units 07:45 07:45 03:42 WBC (4.8-10.8) K/uL RBC (4.2-5.4) M/uL Hgb (12.0-16.0) g/dL Hct (37-47) % MCV (80-100) fL MCH (25-34) pg MCHC (32-36) g/dL RDW Std Deviation (36.4-46.3) fL RDW Coeff of Mine (11.5-14.5) % Plt Count (130-400) K/uL MPV (7.4-10.4) fL Immature Gran % (Auto) % Neut % (Auto) % Lymph % (Auto) % [place] % (Auto) % Eos % (Auto) % Baso % (Auto) % Immature Gran # (Auto) (0.00-0.02) K/uL Neut # (Auto) (1.4-6.5) K/uL Lymph # (Auto) (1.2-3.4) K/uL [place] # (Auto) (0.11-0.59) K/uL Eos # (Auto) (0-0.5) K/uL Baso # (Auto) (0-0.2) K/uL RBC Morphology Sodium (136-145) mmol/L Potassium (3.5-5.1) mmol/L Chloride (98-107) mmol/L Carbon Dioxide (21-32) mmol/L Anion Gap (3-11) BUN (7-18) mg/dl Creatinine (0.6-1.2) mg/dl Est Cr Clr Drug Dosing ml/min Est GFR ( Amer) Est GFR (Non-Af Amer) BUN/Creatinine Ratio (10-20) Glucose (70-99) mg/dl POC Glucose (70-99) Lactate (0.4-2.0) mmol/L Calcium (8.5-10.1) mg/dl Phosphorus (2.5-4.9) mg/dl Magnesium (1.8-2.4) mg/dl Total Bilirubin (0.2-1) mg/dl AST (15-37) U/L ALT (12-78) U/L Alkaline Phosphatase (45-117) U/L Total Protein (6.4-8.2) gm/dl Albumin (3.4-5.0) gm/dl Globulin (2.5-4.0) gm/dl Albumin/Globulin Ratio (0.9-2) Random Cortisol 45.39 mcg/dl Pleural Fluid Source RIGHT LUNG Pleural Color STRAW Pleural Appearance CLOUDY Pleural pH 7.31 (7.3-7.4) Pleural WBC 04121 /uL Pleural RBC 8000 /uL Pleural Polynuclear % 90.0 % Pleural Mononuclear % 10.0 % Pleural Total Protein 2.6 g/dl Pleural LDH 811 U/L Pleural Glucose 135 mg/dl Pleural Amylase 6 U/L Pleural Cholesterol Nasal Screen MRSA (PCR) (Negative) 04/21/19 04/21/19 04/21/19 Range/Units 03:42 03:42 03:42 WBC 16.35 H (4.8-10.8) K/uL RBC 3.14 L (4.2-5.4) M/uL Hgb 7.9 L (12.0-16.0) g/dL Hct 23.2 L (37-47) % MCV 73.9 L (80-100) fL MCH 25.2 (25-34) pg MCHC 34.1 (32-36) g/dL RDW Std Deviation 41.2 (36.4-46.3) fL RDW Coeff of Mine 15.2 H (11.5-14.5) % Plt Count 350 (130-400) K/uL MPV 9.4 (7.4-10.4) fL Immature Gran % (Auto) 0.6 % Neut % (Auto) 88.1 % Lymph % (Auto) 3.7 % [place] % (Auto) 7.3 % Eos % (Auto) 0.2 % Baso % (Auto) 0.1 % Immature Gran # (Auto) 0.09 H (0.00-0.02) K/uL Neut # (Auto) 14.40 H (1.4-6.5) K/uL Lymph # (Auto) 0.61 L (1.2-3.4) K/uL [place] # (Auto) 1.20 H (0.11-0.59) K/uL Eos # (Auto) 0.03 (0-0.5) K/uL Baso # (Auto) 0.02 (0-0.2) K/uL RBC Morphology Unremarkable Sodium 137 (136-145) mmol/L Potassium 3.3 L (3.5-5.1) mmol/L Chloride 105 (98-107) mmol/L Carbon Dioxide 25 (21-32) mmol/L Anion Gap 7.0 (3-11) BUN 8 D (7-18) mg/dl Creatinine 0.49 L (0.6-1.2) mg/dl Est Cr Clr Drug Dosing 181.9 ml/min Est GFR ( Amer) 140.3 Est GFR (Non-Af Amer) 121.0 BUN/Creatinine Ratio 16.8 (10-20) Glucose 167 H (70-99) mg/dl POC Glucose (70-99) Lactate 0.8 (0.4-2.0) mmol/L Calcium 7.0 L (8.5-10.1) mg/dl Phosphorus 1.5 L* (2.5-4.9) mg/dl Magnesium 2.2 (1.8-2.4) mg/dl Total Bilirubin 0.5 (0.2-1) mg/dl AST 8 L (15-37) U/L ALT 13 (12-78) U/L Alkaline Phosphatase 72 (45-117) U/L Total Protein 5.4 L (6.4-8.2) gm/dl Albumin 2.1 L (3.4-5.0) gm/dl Globulin 3.3 (2.5-4.0) gm/dl Albumin/Globulin Ratio 0.6 L (0.9-2) Random Cortisol mcg/dl Pleural Fluid Source Pleural Color Pleural Appearance Pleural pH (7.3-7.4) Pleural WBC /uL Pleural RBC /uL Pleural Polynuclear % % Pleural Mononuclear % % Pleural Total Protein g/dl Pleural LDH U/L Pleural Glucose mg/dl Pleural Amylase U/L Pleural Cholesterol Nasal Screen MRSA (PCR) (Negative) 04/21/19 04/20/19 04/20/19 Range/Units 02:55 21:54 17:14 WBC (4.8-10.8) K/uL RBC (4.2-5.4) M/uL Hgb (12.0-16.0) g/dL Hct (37-47) % MCV (80-100) fL MCH (25-34) pg MCHC (32-36) g/dL RDW Std Deviation (36.4-46.3) fL RDW Coeff of Mine (11.5-14.5) % Plt Count (130-400) K/uL MPV (7.4-10.4) fL Immature Gran % (Auto) % Neut % (Auto) % Lymph % (Auto) % [place] % (Auto) % Eos % (Auto) % Baso % (Auto) % Immature Gran # (Auto) (0.00-0.02) K/uL Neut # (Auto) (1.4-6.5) K/uL Lymph # (Auto) (1.2-3.4) K/uL [place] # (Auto) (0.11-0.59) K/uL Eos # (Auto) (0-0.5) K/uL Baso # (Auto) (0-0.2) K/uL RBC Morphology Sodium (136-145) mmol/L Potassium (3.5-5.1) mmol/L Chloride (98-107) mmol/L Carbon Dioxide (21-32) mmol/L Anion Gap (3-11) BUN (7-18) mg/dl Creatinine (0.6-1.2) mg/dl Est Cr Clr Drug Dosing ml/min Est GFR ( Amer) Est GFR (Non-Af Amer) BUN/Creatinine Ratio (10-20) Glucose (70-99) mg/dl POC Glucose 111 H 128 H (70-99) Lactate (0.4-2.0) mmol/L Calcium (8.5-10.1) mg/dl Phosphorus (2.5-4.9) mg/dl Magnesium (1.8-2.4) mg/dl Total Bilirubin (0.2-1) mg/dl AST (15-37) U/L ALT (12-78) U/L Alkaline Phosphatase (45-117) U/L Total Protein (6.4-8.2) gm/dl Albumin (3.4-5.0) gm/dl Globulin (2.5-4.0) gm/dl Albumin/Globulin Ratio (0.9-2) Random Cortisol mcg/dl Pleural Fluid Source Pleural Color Pleural Appearance Pleural pH (7.3-7.4) Pleural WBC /uL Pleural RBC /uL Pleural Polynuclear % % Pleural Mononuclear % % Pleural Total Protein g/dl Pleural LDH U/L Pleural Glucose mg/dl Pleural Amylase U/L Pleural Cholesterol Nasal Screen MRSA (PCR) Negative (Negative) PG Care Time/CCT Total # of Minutes Spent Total Time Spent with Patient: Total time spent is greater than 50% in coordination of care (as documented) at patient's floor/unit and/or counseling patient: Resident Activity Tracking Resident Involvement: Resident Care Provided Care Provided: Adult Hospital Medicine (1) Sepsis Sepsis acute organ dysfunction status: unspecified Sepsis type: sepsis due to unspecified organism Qualified Code(s): A41.9 - Sepsis, unspecified organism
[2019-04-21] MEDS: QUETIAPINE FUMARATE 200 MG TAB PO SCH (19:35)
[2019-04-21] MEDS: PARoxetine HCl 20 MG TAB PO SCH (19:35)
[2019-04-21] MEDS: TOPIRAMATE 100 MG TAB PO SCH (19:35)
[2019-04-22] MEDS: INSULIN ASPART 100 UNITS/ML 3 ML PEN SC SCH ×6 (00:32→21:02)
[2019-04-22] MEDS: MoRPHine SULFATE 2 MG/ML CARP IV PRN ×5 (01:15→21:37)
[2019-04-22] MEDS: ALUMINUM/MAGNESIUM SUSP 30 ML UDC NG SCH ×4 (02:15→20:12)
[2019-04-22] MEDS: FAMOTIDINE 20 MG in SYRINGE 3 ML IV SCH ×2 (03:16→16:40)
[2019-04-22] MEDS: PIPERACILLIN/TAZOBACTAM 4.5 GM in DEXTROSE 5% 100 ML IV SCH ×3 (03:16→21:33)
[2019-04-22] MEDS ORDERED: VANCOMYCIN TROUGH ONE (03:30)
[2019-04-22 04:12] LABS: Creatinine Clr Calc Pharmacy 234.6 ml/min; Est GFR (African American) > 150.0; Est GFR (Non-African American) 131.6
[2019-04-22] MEDS: VANCOMYCIN HCL 1,250 MG in SODIUM CHLORIDE 0.9% 250 ML IV SCH (04:53)
[2019-04-22] MEDS: LEVOTHYROXINE SODIUM 75 MCG TABLET PO SCH (05:38)
[2019-04-22 06:33] LABS: Estimated Average Glucose 117 mg/dl; Hemoglobin A1C 5.7 % (4.5-5.6)
[2019-04-22 07:21] LABS: Basophils # (auto) 0.03 K/uL (0-0.2); Basophils % (auto) 0.2 %; Eosinophils # (auto) 0.23 K/uL (0-0.5); Eosinophils % (auto) 1.5 %; Hematocrit (blood only) 21.4 % (37-47); Hemoglobin 7.5 g/dL (12.0-16.0); Immature Granulocytes # (auto) 0.28 K/uL (0.00-0.02); Immature Granulocytes % (auto) 1.8 %; Lymphocytes # (auto) 1.42 K/uL (1.2-3.4); Lymphocytes % (auto) 9.4 %; Mean Corpuscular Hemoglobin 25.6 pg (25-34); Mean Platelet Volume 8.8 fL (7.4-10.4); Monocytes # (auto) 1.32 K/uL (0.11-0.59); Monocytes % (auto) 8.7 %; Neutrophils # (auto) 11.87 K/uL (1.4-6.5); Neutrophils % (auto) 78.4 %; Platelet Count 389 K/uL (130-400); RDW Coefficient of Variation 15.3 % (11.5-14.5); RDW Standard Deviation 41.5 fL (36.4-46.3); Red Blood Count 2.93 M/uL (4.2-5.4); White Blood Count 15.15 K/uL (4.8-10.8)
--- NOTE | 2019-04-22 07:24 | XRay Report ---
XR chest 1V portable CLINICAL HISTORY: 39 years-old Female presenting with chest tube check. TECHNIQUE: Portable upright AP view of the chest was obtained. COMPARISON: 04/21/2019. FINDINGS: Nasogastric tube descends below the diaphragm with sidehole in terminus in the gastric lumen. A large bore right pleural drain positioned in the right mid lung. A side hole is noted outside the pleural cavity as on prior exam. An overlapping external leads degrades evaluation of the terminus. Cardiac s ilhouette moderately enlarged as on prior. Mildly low lung volumes with hypoventilatory changes. Pers istent pulmonary vascular prominence. Persistent bibasilar opacities greater on the left similar to p rior. No large effusion or pneumothorax. Degenerative changes of the thoracic spine. Upper abdomen no rmal. IMPRESSION: 1. Unchanged position of the right pleural drain with a side hole outside of the pleural cavity. 2. Cardiomegaly with volume overload. 3. Low lung volumes with bibasilar opacities greater on the left unchanged from prior exam. Infectio us infiltrate or aspiration not excluded though this is favored to be atelectasis. 4. Appropriately positioned nasogastric tube. Electronically signed by: Jonah Jones M.D. 04/22/2019 7:23 AM
--- NOTE | 2019-04-22 07:34 | Pharmacy Report ---
Pharmacy Abx Dose Short Note - Date of Service April 22, 2019 - Assessment & Plan Laboratory Tests 04/20/19 04/21/19 04/21/19 17:41 03:42 03:42 WBC 18.11 H 16.35 H Creatinine 0.49 L Est Cr Clr Drug Dosing 181.9 Vancomycin Trough 04/22/19 04/22/19 04/22/19 03:37 03:37 07:10 WBC 15.15 H Creatinine 0.38 L Est Cr Clr Drug Dosing 234.6 Vancomycin Trough 7.7 Assessment * 39 year old F receiving ZOSYN + VANCOMYCIN IV therapy for intra-abd infection (perf bowel, recent h/o lap hysterectomy w/ L salpingo-oophrectomy 04/16/19) as well as hydropneumothorax and CXR w/ b/l opacities * Day # 4 of Zosyn, Day # 2 Vancomycin * Patient is now s/p exp lap w/ drainage of intraabd fluid collections, ileostomy and chest tube placement * BLCXs - NO GROWTH * pleural fluid cx are pending * MRSA nasal swab was negative * WBCs trending down, afebrile today, one temp 38.1 yesterday Plan Vancomycin - currently receiving 1250mg IV Q8H * Trough level of 7.7 mcg/mL is subtherapeutic, drawn after 3 total doses, so may not be quite at steady state * Change to Vancomycin 1750 mg (16mg/kg) IV every 8 hours at this time * Goal trough level for intrabdominal infection : 15 to 20 mcg/mL * Trough level ordered for: 04/23/19, this will be steady state Zosyn * continue 4.5gm ext-infusion Q 8 hrs * eCrCl > 20cc/min; BMI > 35 Pharmacy will continue to follow and will adjust dose/frequency as necessary. Thank you.
[2019-04-22 07:55] LABS: BUN Creatinine Ratio 11.9 (10-20); Blood Urea Nitrogen 5 mg/dl (7-18); Calcium 7.2 mg/dl (8.5-10.1); Carbon Dioxide 25 mmol/L (21-32); Chloride 107 mmol/L (98-107); Creatinine Clr Calc Pharmacy 237.1 ml/min; Est GFR (African American) > 150.0; Est GFR (Non-African American) 131.6; Glucose 121 mg/dl (70-99); Potassium 3.1 mmol/L (3.5-5.1); Sodium 138 mmol/L (136-145)
[2019-04-22 08:10] LABS: RBC Morphology Unremarkable
[2019-04-22 08:11] LABS: Phosphorus 1.1 mg/dl (2.5-4.9)
[2019-04-22] MEDS ORDERED: POTASSIUM PHOSPHATE 30 MMOL in SODIUM CHLORIDE 0.9% 500 ML IV ONE (09:30)
[2019-04-22] MEDS: NORMOSOL-R 1,000 ML IV SCH ×2 (09:37→23:16)
[2019-04-22] MEDS: INSULIN GLARGINE SOLOSTAR 100 UNITS/ML 3 ML PEN SC SCH (09:42)
[2019-04-22] MEDS: VANCOMYCIN HCL 1,750 MG in SODIUM CHLORIDE 0.9% 500 ML IV SCH ×2 (09:56→21:33)
--- NOTE | 2019-04-22 10:56 | Surgery Progress Note ---
Date of Service April 22, 2019 Assessment & Plan (1) Status post exploratory laparotomy: Postoperative day #2 status post exploratory laparotomy with formation of ileostomy Doing well Encouraged ambulation Consult PT and OT Can discontinue NG tube but would only do ice chips and sips of water for now Ileostomy is functioning Denies shortness of breath and chest x-ray shows lung continues to be reexpanded with management of chest tube as per thoracic surgery Subjective Postoperative day #2, status post exploratory laparotomy with drainage of abscess and formation of ileostomy Ileostomy is functioning now with bilious material Patient denies nausea and vomiting Abdominal pain in the incisional area only Left LAVELL had 70 cc yesterday and 25 over the first shift today Right LAVELL had 75 cc yesterday and 10 over the first shift today All drainage appears serosanguineous Denies shortness of breath Physical Exam Gastrointestinal (Abdomen): Inspection/Auscultation: abdomen not distended Percussion/Palpation: + abdomen tender (Incisional only) Ileostomy has some venous congestion but otherwise appears healthy and is functioning Results & Data Vital Signs (Past 12 Hours) Vital Signs Temp Pulse Pulse Resp BP Pulse Ox 04/22/19 07:34 103 H 04/22/19 07:00 36.6 C 78 18 130/79 98 04/22/19 05:09 36.8 C 107 H 20 135/83 91 04/22/19 03:00 37.1 C 109 H 20 126/83 92 04/22/19 01:46 36.6 C 115 H 20 129/77 92 04/22/19 01:03 112 H 04/21/19 23:30 37.4 C 122 H 18 138/90 90 Laboratory Results 04/22/19 04/22/19 04/22/19 Range/Units 09:34 07:10 07:10 WBC 15.15 H (4.8-10.8) K/uL RBC 2.93 L (4.2-5.4) M/uL Hgb 7.5 L (12.0-16.0) g/dL Hct 21.4 L (37-47) % MCV 73.0 L (80-100) fL MCH 25.6 (25-34) pg MCHC 35.0 (32-36) g/dL RDW Std Deviation 41.5 (36.4-46.3) fL RDW Coeff of Mine 15.3 H (11.5-14.5) % Plt Count 389 (130-400) K/uL MPV 8.8 (7.4-10.4) fL Immature Gran % (Auto) 1.8 % Neut % (Auto) 78.4 % Lymph % (Auto) 9.4 % [place] % (Auto) 8.7 % Eos % (Auto) 1.5 % Baso % (Auto) 0.2 % Immature Gran # (Auto) 0.28 H (0.00-0.02) K/uL Neut # (Auto) 11.87 H (1.4-6.5) K/uL Lymph # (Auto) 1.42 (1.2-3.4) K/uL [place] # (Auto) 1.32 H (0.11-0.59) K/uL Eos # (Auto) 0.23 (0-0.5) K/uL Baso # (Auto) 0.03 (0-0.2) K/uL RBC Morphology Unremarkable Sodium 138 (136-145) mmol/L Potassium 3.1 L (3.5-5.1) mmol/L Chloride 107 (98-107) mmol/L Carbon Dioxide 25 (21-32) mmol/L Anion Gap 6.0 (3-11) BUN 5 L (7-18) mg/dl Creatinine 0.38 L (0.6-1.2) mg/dl Est Cr Clr Drug Dosing 237.1 ml/min Est GFR ( Amer) > 150.0 Est GFR (Non-Af Amer) 131.6 BUN/Creatinine Ratio 11.9 (10-20) Glucose 121 H (70-99) mg/dl POC Glucose 112 H (70-99) Estimat Average Glucose mg/dl Hemoglobin A1c (4.5-5.6) % Calcium 7.2 L (8.5-10.1) mg/dl Phosphorus 1.1 L* (2.5-4.9) mg/dl Vancomycin Trough (See Comment) mcg/ml 04/22/19 04/22/19 04/22/19 Range/Units 03:37 03:37 03:37 WBC (4.8-10.8) K/uL RBC (4.2-5.4) M/uL Hgb (12.0-16.0) g/dL Hct (37-47) % MCV (80-100) fL MCH (25-34) pg MCHC (32-36) g/dL RDW Std Deviation (36.4-46.3) fL RDW Coeff of Mine (11.5-14.5) % Plt Count (130-400) K/uL MPV (7.4-10.4) fL Immature Gran % (Auto) % Neut % (Auto) % Lymph % (Auto) % [place] % (Auto) % Eos % (Auto) % Baso % (Auto) % Immature Gran # (Auto) (0.00-0.02) K/uL Neut # (Auto) (1.4-6.5) K/uL Lymph # (Auto) (1.2-3.4) K/uL [place] # (Auto) (0.11-0.59) K/uL Eos # (Auto) (0-0.5) K/uL Baso # (Auto) (0-0.2) K/uL RBC Morphology Sodium (136-145) mmol/L Potassium (3.5-5.1) mmol/L Chloride (98-107) mmol/L Carbon Dioxide (21-32) mmol/L Anion Gap (3-11) BUN (7-18) mg/dl Creatinine 0.38 L (0.6-1.2) mg/dl Est Cr Clr Drug Dosing 234.6 ml/min Est GFR ( Amer) > 150.0 Est GFR (Non-Af Amer) 131.6 BUN/Creatinine Ratio (10-20) Glucose (70-99) mg/dl POC Glucose (70-99) Estimat Average Glucose 117 mg/dl Hemoglobin A1c 5.7 H (4.5-5.6) % Calcium (8.5-10.1) mg/dl Phosphorus (2.5-4.9) mg/dl Vancomycin Trough 7.7 (See Comment) mcg/ml 04/22/19 04/22/19 04/21/19 Range/Units 03:21 00:15 19:39 WBC (4.8-10.8) K/uL RBC (4.2-5.4) M/uL Hgb (12.0-16.0) g/dL Hct (37-47) % MCV (80-100) fL MCH (25-34) pg MCHC (32-36) g/dL RDW Std Deviation (36.4-46.3) fL RDW Coeff of Mine (11.5-14.5) % Plt Count (130-400) K/uL MPV (7.4-10.4) fL Immature Gran % (Auto) % Neut % (Auto) % Lymph % (Auto) % [place] % (Auto) % Eos % (Auto) % Baso % (Auto) % Immature Gran # (Auto) (0.00-0.02) K/uL Neut # (Auto) (1.4-6.5) K/uL Lymph # (Auto) (1.2-3.4) K/uL [place] # (Auto) (0.11-0.59) K/uL Eos # (Auto) (0-0.5) K/uL Baso # (Auto) (0-0.2) K/uL RBC Morphology Sodium (136-145) mmol/L Potassium (3.5-5.1) mmol/L Chloride (98-107) mmol/L Carbon Dioxide (21-32) mmol/L Anion Gap (3-11) BUN (7-18) mg/dl Creatinine (0.6-1.2) mg/dl Est Cr Clr Drug Dosing ml/min Est GFR ( Amer) Est GFR (Non-Af Amer) BUN/Creatinine Ratio (10-20) Glucose (70-99) mg/dl POC Glucose 114 H 140 H 136 H (70-99) Estimat Average Glucose mg/dl Hemoglobin A1c (4.5-5.6) % Calcium (8.5-10.1) mg/dl Phosphorus (2.5-4.9) mg/dl Vancomycin Trough (See Comment) mcg/ml 04/21/19 04/21/19 Range/Units 16:06 11:19 WBC (4.8-10.8) K/uL RBC (4.2-5.4) M/uL Hgb (12.0-16.0) g/dL Hct (37-47) % MCV (80-100) fL MCH (25-34) pg MCHC (32-36) g/dL RDW Std Deviation (36.4-46.3) fL RDW Coeff of Mine (11.5-14.5) % Plt Count (130-400) K/uL MPV (7.4-10.4) fL Immature Gran % (Auto) % Neut % (Auto) % Lymph % (Auto) % [place] % (Auto) % Eos % (Auto) % Baso % (Auto) % Immature Gran # (Auto) (0.00-0.02) K/uL Neut # (Auto) (1.4-6.5) K/uL Lymph # (Auto) (1.2-3.4) K/uL [place] # (Auto) (0.11-0.59) K/uL Eos # (Auto) (0-0.5) K/uL Baso # (Auto) (0-0.2) K/uL RBC Morphology Sodium (136-145) mmol/L Potassium (3.5-5.1) mmol/L Chloride (98-107) mmol/L Carbon Dioxide (21-32) mmol/L Anion Gap (3-11) BUN (7-18) mg/dl Creatinine (0.6-1.2) mg/dl Est Cr Clr Drug Dosing ml/min Est GFR ( Amer) Est GFR (Non-Af Amer) BUN/Creatinine Ratio (10-20) Glucose (70-99) mg/dl POC Glucose 131 H 141 H (70-99) Estimat Average Glucose mg/dl Hemoglobin A1c (4.5-5.6) % Calcium (8.5-10.1) mg/dl Phosphorus (2.5-4.9) mg/dl Vancomycin Trough (See Comment) mcg/ml Pleural fluid cultures so far with no growth with fungal and acid-fast cultures pending but the acid-fast and fungal smears were negative Diagnostic Findings Chest x-ray shows lung to be expanded but it appears as though the chest tube has been pulled back in the outermost hole is in the subcutaneous tissue
--- NOTE | 2019-04-22 15:28 | Family Medicine Progress Note ---
Date of Service April 22, 2019 *this is a consult note* Assessment & Plan (1) Sepsis: 39 yo female with post-hysterectomy abscess formation and sepsis on POD 2 of laparotomy with lavage and ileostomy formation. Sepsis secondary to post-op hysterectomy abscess formation SIRS criteria met on admission (HR > 90bpm and WBC >12,000) and infectious etiology identified (post-op fluid collection seen on abdominal CT) - currently POD 2 of laparotomy with lavage and ileostomy formation; ileostomy is draining bilious fluid - Per surgery note: rectal contrast leak into peritoneum visualized on CT scan from 04/20 was suggestive of bowel perforation; however surgeon unable to locate perforation site during laparotomy; ileostomy bag placed for fluid collection -WBC count continues to trend down; at 15 today -continue broad-spectrum antibioticsZosyn and vancomycin - [place] catheter and NG tube removed today; patient still on sips/ice chips diet per surgery recs - PT/OT consulted -received 4.5 L of bolus fluid in addition to maintenance fluids (now on Normosol at 40mls/hr) Lactate improved from 1.8 to 0.8 04/21 R sided pneumothorax -visualized on CT scan 04/21; etiology unknown -chest tube placed during laparotomy evening of 04/20; so far has drained 330ml; fluid analysis consistent with benign exudative effusion - CT surgery following, appreciate recs Anemia - possible etiologies include surgical blood loss, hematoma formation - Hgb 10.0 on 04/18 ; down to 7.5 today 04/22; we will recheck Hgb before night clerk auditor - type and screen ordered in the event patient needs transfusion Electrolyte Derangements - phosphorus low today at 1.1; ordered 30mmol of Potassium Phosphate for replacement - K at 3.3, anticipate improvement with above replacement - calcium low at 7.2 today, up from 7.0 on 04/21 -sodium stable at 138 -we will recheck phosphorus level before night clerk auditor Status post hysterectomy Continue pain control with oxycodone/acetaminophen prn Hypothyroidism Continue home dose Synthroid Non-insulin dependent diabetes mellitus Sliding scale while in hospital Mood disorder Continue home dose paroxetine, Seroquel, topiramate DVT prophylaxis: bilateral SCDs CODE STATUS: full FEN/GI: n.p.o. except for chips, sips, meds Dispo: ICU to jane/surg floor Supervising Physician Co-Signing Physician Notes Patient seen and examined with PGY-1 Dr. Sexton and PGY-3 Dr. Ramires. Agree with history, exam findings, assessment and plan of care as outlined. In brief, Ms. Woody is a 39 year old female with hx of depression/anxiety, fibroids and diabetes who recently underwent laparoscopic hysterectomy with extensive lysis of adhesions admitted for sepsis secondary to pelvic abscess. She underwent ex-lap , abscess drainage, ileostomy for large bowel perf and pelvic abscess on the evening of 04/20. A chest tube was placed for a right hydrathorax. She is ambulating. The NG tube has been removed. Mendosa to be removed. Chest tube draining serosang fluid. JPx2 draining serosang fluid. Lungs are clear with good air movement. Ostomy with output. 1. Sepsis 2/2 pelvic abscess and bowel perf s/p lap hyst and SHARA and now exlap. Vanc and zosyn. LEGAL AID and gen surg managing post-operative care. Continue vanc and zosyn. On discharge, would consider oral abx for anaerobic coverage only. 2. Right hydropneumothorax. chest tube placed. Possible removal tomorrow. Dr. Grady consulted. 3. DM. SSI. Sips and ice chips right now. Once ok to advance her diet, will switch to carb consistent diet and glucose checks TIDAC and HS with ssi. 4. Anemia. Likely post-op blood loss and some dilutional component given the copious amounts of IVFs she has been receiving. hgb 7.5. Recheck later this evening and if at transfusion threshold, will obtain consent and transfuse. Type and screen sent today. 4. Depression.anxiety. Continuing home medications. 5. edema/third spacing. Slow down IVFs now muna she is allowed sips. Anticipate that this will self diurese off. She did receive many liters of fluids since admission. 6 . electrolyte derangement. repleting. Dispo: pending clinical improvement. Thank you for this consult. Please call with any questions. Subjective Patient was downgraded from ICU last night. Night team contacted for chest pain. EKG and CXR ordered and reportedly stable. Per night resident, patient's chest pain spontaneously resolved and she attributed it to being anxious. Patient reports feeling better today. She is ambulating with assistance of nurse. Physical Exam Constitutional: WD/WN, vitals as above + ill appearing and + overweight Eyes: + anicteric sclerae ENMT: external ear and nose normal, oropharynx normal Neck: trachea midline, no thyromegaly Respiratory: normal respiratory effort, lungs clear to auscultation Auscultation: no crackles, no rales and no wheezes Cardiovascular: Heart Sounds: normal S1, normal S2 and + murmur (functional ) Gastrointestinal (Abdomen): Inspection/Auscultation: + abdominal wall ecchymosis (confined to demarcations placed by Dr. Hutchins 04/20), + significant pannus, + abdominal surgical scar, + abdominal surgical incision (covered by bandages; dried blood present under bandages ) and + abdominal surgical drain present ([address] draining pink-tinged serous fluid); abdomen not distended Percussion/Palpation: + abdomen tender (diffuse tenderness); no guarding Ileostomy bag in place Skin: no rashes, warm and dry Neurologic: awake Psychiatric: A+Ox3, euthymic affect Results & Data Vital Signs (Past 12 Hours) Vital Signs Temp Pulse Pulse Resp BP Pulse Ox 04/22/19 11:00 36.8 C 108 H 16 122/80 92 04/22/19 07:34 103 H 04/22/19 07:00 36.6 C 78 18 130/79 98 04/22/19 05:09 36.8 C 107 H 20 135/83 91 Laboratory Results 04/22/19 04/22/19 04/22/19 Range/Units 11:35 09:34 07:10 WBC (4.8-10.8) K/uL RBC (4.2-5.4) M/uL Hgb (12.0-16.0) g/dL Hct (37-47) % MCV (80-100) fL MCH (25-34) pg MCHC (32-36) g/dL RDW Std Deviation (36.4-46.3) fL RDW Coeff of Mine (11.5-14.5) % Plt Count (130-400) K/uL MPV (7.4-10.4) fL Immature Gran % (Auto) % Neut % (Auto) % Lymph % (Auto) % [place] % (Auto) % Eos % (Auto) % Baso % (Auto) % Immature Gran # (Auto) (0.00-0.02) K/uL Neut # (Auto) (1.4-6.5) K/uL Lymph # (Auto) (1.2-3.4) K/uL [place] # (Auto) (0.11-0.59) K/uL Eos # (Auto) (0-0.5) K/uL Baso # (Auto) (0-0.2) K/uL RBC Morphology Sodium 138 (136-145) mmol/L Potassium 3.1 L (3.5-5.1) mmol/L Chloride 107 (98-107) mmol/L Carbon Dioxide 25 (21-32) mmol/L Anion Gap 6.0 (3-11) BUN 5 L (7-18) mg/dl Creatinine 0.38 L (0.6-1.2) mg/dl Est Cr Clr Drug Dosing 237.1 ml/min Est GFR ( Amer) > 150.0 Est GFR (Non-Af Amer) 131.6 BUN/Creatinine Ratio 11.9 (10-20) Glucose 121 H (70-99) mg/dl POC Glucose 130 H 112 H (70-99) Estimat Average Glucose mg/dl Hemoglobin A1c (4.5-5.6) % Calcium 7.2 L (8.5-10.1) mg/dl Phosphorus 1.1 L* (2.5-4.9) mg/dl Vancomycin Trough (See Comment) mcg/ml Crossmatch 04/22/19 04/22/19 04/22/19 Range/Units 07:10 03:37 03:37 WBC 15.15 H (4.8-10.8) K/uL RBC 2.93 L (4.2-5.4) M/uL Hgb 7.5 L (12.0-16.0) g/dL Hct 21.4 L (37-47) % MCV 73.0 L (80-100) fL MCH 25.6 (25-34) pg MCHC 35.0 (32-36) g/dL RDW Std Deviation 41.5 (36.4-46.3) fL RDW Coeff of Mine 15.3 H (11.5-14.5) % Plt Count 389 (130-400) K/uL MPV 8.8 (7.4-10.4) fL Immature Gran % (Auto) 1.8 % Neut % (Auto) 78.4 % Lymph % (Auto) 9.4 % [place] % (Auto) 8.7 % Eos % (Auto) 1.5 % Baso % (Auto) 0.2 % Immature Gran # (Auto) 0.28 H (0.00-0.02) K/uL Neut # (Auto) 11.87 H (1.4-6.5) K/uL Lymph # (Auto) 1.42 (1.2-3.4) K/uL [place] # (Auto) 1.32 H (0.11-0.59) K/uL Eos # (Auto) 0.23 (0-0.5) K/uL Baso # (Auto) 0.03 (0-0.2) K/uL RBC Morphology Unremarkable Sodium (136-145) mmol/L Potassium (3.5-5.1) mmol/L Chloride (98-107) mmol/L Carbon Dioxide (21-32) mmol/L Anion Gap (3-11) BUN (7-18) mg/dl Creatinine 0.38 L (0.6-1.2) mg/dl Est Cr Clr Drug Dosing 234.6 ml/min Est GFR ( Amer) > 150.0 Est GFR (Non-Af Amer) 131.6 BUN/Creatinine Ratio (10-20) Glucose (70-99) mg/dl POC Glucose (70-99) Estimat Average Glucose mg/dl Hemoglobin A1c (4.5-5.6) % Calcium (8.5-10.1) mg/dl Phosphorus (2.5-4.9) mg/dl Vancomycin Trough 7.7 (See Comment) mcg/ml Crossmatch 04/22/19 04/22/19 04/22/19 Range/Units 03:37 03:21 00:15 WBC (4.8-10.8) K/uL RBC (4.2-5.4) M/uL Hgb (12.0-16.0) g/dL Hct (37-47) % MCV (80-100) fL MCH (25-34) pg MCHC (32-36) g/dL RDW Std Deviation (36.4-46.3) fL RDW Coeff of Mine (11.5-14.5) % Plt Count (130-400) K/uL MPV (7.4-10.4) fL Immature Gran % (Auto) % Neut % (Auto) % Lymph % (Auto) % [place] % (Auto) % Eos % (Auto) % Baso % (Auto) % Immature Gran # (Auto) (0.00-0.02) K/uL Neut # (Auto) (1.4-6.5) K/uL Lymph # (Auto) (1.2-3.4) K/uL [place] # (Auto) (0.11-0.59) K/uL Eos # (Auto) (0-0.5) K/uL Baso # (Auto) (0-0.2) K/uL RBC Morphology Sodium (136-145) mmol/L Potassium (3.5-5.1) mmol/L Chloride (98-107) mmol/L Carbon Dioxide (21-32) mmol/L Anion Gap (3-11) BUN (7-18) mg/dl Creatinine (0.6-1.2) mg/dl Est Cr Clr Drug Dosing ml/min Est GFR ( Amer) Est GFR (Non-Af Amer) BUN/Creatinine Ratio (10-20) Glucose (70-99) mg/dl POC Glucose 114 H 140 H (70-99) Estimat Average Glucose 117 mg/dl Hemoglobin A1c 5.7 H (4.5-5.6) % Calcium (8.5-10.1) mg/dl Phosphorus (2.5-4.9) mg/dl Vancomycin Trough (See Comment) mcg/ml Crossmatch 04/21/19 04/21/19 04/19/19 Range/Units 19:39 16:06 16:39 WBC (4.8-10.8) K/uL RBC (4.2-5.4) M/uL Hgb (12.0-16.0) g/dL Hct (37-47) % MCV (80-100) fL MCH (25-34) pg MCHC (32-36) g/dL RDW Std Deviation (36.4-46.3) fL RDW Coeff of Mine (11.5-14.5) % Plt Count (130-400) K/uL MPV (7.4-10.4) fL Immature Gran % (Auto) % Neut % (Auto) % Lymph % (Auto) % [place] % (Auto) % Eos % (Auto) % Baso % (Auto) % Immature Gran # (Auto) (0.00-0.02) K/uL Neut # (Auto) (1.4-6.5) K/uL Lymph # (Auto) (1.2-3.4) K/uL [place] # (Auto) (0.11-0.59) K/uL Eos # (Auto) (0-0.5) K/uL Baso # (Auto) (0-0.2) K/uL RBC Morphology Sodium (136-145) mmol/L Potassium (3.5-5.1) mmol/L Chloride (98-107) mmol/L Carbon Dioxide (21-32) mmol/L Anion Gap (3-11) BUN (7-18) mg/dl Creatinine (0.6-1.2) mg/dl Est Cr Clr Drug Dosing ml/min Est GFR ( Amer) Est GFR (Non-Af Amer) BUN/Creatinine Ratio (10-20) Glucose (70-99) mg/dl POC Glucose 136 H 131 H (70-99) Estimat Average Glucose mg/dl Hemoglobin A1c (4.5-5.6) % Calcium (8.5-10.1) mg/dl Phosphorus (2.5-4.9) mg/dl Vancomycin Trough (See Comment) mcg/ml Crossmatch See Detail PG Care Time/CCT Total # of Minutes Spent Total Time Spent with Patient: Total time spent is greater than 50% in coordination of care (as documented) at patient's floor/unit and/or counseling patient: Resident Activity Tracking Resident Involvement: Resident Care Provided Care Provided: Adult Hospital Medicine (1) Sepsis Sepsis acute organ dysfunction status: unspecified Sepsis type: sepsis due to unspecified organism Qualified Code(s): A41.9 - Sepsis, unspecified organism
--- NOTE | 2019-04-22 15:35 | Progress Note ---
DATE: 04/22/2019 Ms. Woody is on room air now. There has been a huge difference. Her x-ray also looks good. Her chest tube has drained 330 mL. Chest x-ray looks like it may be out into the subcutaneous tissues, but is still draining fluid and I would leave it as it is. Our diagnostic studies do show that this is a benign exudative effusion. This is not surprising. We do not see an air leak. We are going to see what the drains looks like tomorrow. The tube continues to drain, I would leave it as it is, and we may pull it out in the morning.
--- NOTE | 2019-04-22 16:43 | Surgery Progress Note ---
Date of Service April 22, 2019 Subjective POD#2 doing better ambulating well Physical Exam Constitutional: WD/WN, vitals as above comfortable incision draining serous fluid/intact ileostomy granulating well H/H down no SOB repeat CBC possible removal Chest tube in AM Results & Data Vital Signs (Past 12 Hours) Vital Signs Temp Pulse Pulse Resp BP Pulse Ox 04/22/19 16:12 95 04/22/19 11:00 36.8 C 108 H 16 122/80 92 04/22/19 07:34 103 H 04/22/19 07:00 36.6 C 78 18 130/79 98 04/22/19 05:09 36.8 C 107 H 20 135/83 91
[2019-04-22] MEDS ORDERED: Nursing to Pharmacy Communication ONE (19:59)
[2019-04-22] MEDS: QUETIAPINE FUMARATE 200 MG TAB PO SCH (20:12)
[2019-04-22] MEDS: TOPIRAMATE 100 MG TAB PO SCH (20:13)
[2019-04-22] MEDS: PARoxetine HCl 20 MG TAB PO SCH (20:13)
[2019-04-23] MEDS: INSULIN ASPART 100 UNITS/ML 3 ML PEN SC SCH ×6 (00:04→21:34)
[2019-04-23] MEDS: MoRPHine SULFATE 2 MG/ML CARP IV PRN ×3 (01:54→21:04)
[2019-04-23] MEDS: ALUMINUM/MAGNESIUM SUSP 30 ML UDC NG SCH ×4 (01:55→22:34)
[2019-04-23] MEDS: FAMOTIDINE 20 MG in SYRINGE 3 ML IV SCH ×2 (03:08→16:26)
[2019-04-23] MEDS: PIPERACILLIN/TAZOBACTAM 4.5 GM in DEXTROSE 5% 100 ML IV SCH ×3 (05:01→22:06)
[2019-04-23] MEDS: VANCOMYCIN HCL 1,750 MG in SODIUM CHLORIDE 0.9% 500 ML IV SCH ×2 (05:01→13:40)
[2019-04-23] MEDS: LEVOTHYROXINE SODIUM 75 MCG TABLET PO SCH (05:02)
[2019-04-23 07:53] LABS: Hematocrit (blood only) 21.9 % (37-47); Hemoglobin 7.5 g/dL (12.0-16.0); Mean Corpuscular Hemoglobin 25.5 pg (25-34); Mean Corpuscular Hgb Conc 34.2 g/dL (32-36); Mean Corpuscular Volume 74.5 fL (80-100); Mean Platelet Volume 9.1 fL (7.4-10.4); Nucleated RBC # (auto) 0.04 K/uL (0-0); Nucleated RBC % (auto) 0.3 %; Platelet Count 423 K/uL (130-400); RDW Coefficient of Variation 15.5 % (11.5-14.5); RDW Standard Deviation 42.1 fL (36.4-46.3); Red Blood Count 2.94 M/uL (4.2-5.4); White Blood Count 14.32 K/uL (4.8-10.8)
[2019-04-23 08:14] LABS: Basophils # (auto) 0.07 K/uL (0-0.2); Basophils % (auto) 0.5 %; Eosinophils # (auto) 0.41 K/uL (0-0.5); Eosinophils % (auto) 2.9 %; Hypochromasia Present; Immature Granulocytes # (auto) 1.17 K/uL (0.00-0.02); Immature Granulocytes % (auto) 8.2 %; Lymphocytes # (auto) 1.64 K/uL (1.2-3.4); Lymphocytes % (auto) 11.5 %; Monocytes # (auto) 1.38 K/uL (0.11-0.59); Monocytes % (auto) 9.6 %; Neutrophils # (auto) 9.65 K/uL (1.4-6.5); Neutrophils % (auto) 67.3 %
[2019-04-23 08:23] LABS: Alanine Aminotransferase 20 U/L (12-78); Albumin Level 1.7 gm/dl (3.4-5.0); Aspartate Aminotransferase 19 U/L (15-37); BUN Creatinine Ratio 16.1 (10-20); Blood Urea Nitrogen 5 mg/dl (7-18); Calcium 7.3 mg/dl (8.5-10.1); Carbon Dioxide 23 mmol/L (21-32); Chloride 107 mmol/L (98-107); Creatinine Clr Calc Pharmacy 311.6 ml/min; Est GFR (African American) > 150.0; Est GFR (Non-African American) 143.8; Glucose 109 mg/dl (70-99); Potassium 3.2 mmol/L (3.5-5.1); Sodium 138 mmol/L (136-145)
[2019-04-23 08:30] LABS: Albumin Globulin Ratio 0.5 (0.9-2); Alkaline Phosphatase 81 U/L (45-117); Bilirubin,Total 0.4 mg/dl (0.2-1); Globulin 3.6 gm/dl (2.5-4.0); Phosphorus 1.6 mg/dl (2.5-4.9); Total Protein 5.3 gm/dl (6.4-8.2)
[2019-04-23] MEDS ORDERED: VANCOMYCIN TROUGH ONE ×2 (09:30→13:30)
--- NOTE | 2019-04-23 10:00 | Surgery Progress Note ---
Date of Service April 23, 2019 Assessment & Plan (1) Abdominal abscess: Postoperative day #2 status post exploratory laparotomy with formation of ileostomy Doing very very well Can start full liquid diet as ostomy is functioning Drainage from JPs is serous White count is decreasing slowly and would continue with IV antibiotics Encourage ambulation Subjective Postoperative day #2 status post exploratory laparotomy with drainage of abscess and formation of ileostomy Patient is doing very well today Denies nausea and vomiting Thickening of the output from her ileostomy Left LAVELL had 25 cc out last shift Right LAVELL had 20 cc out last shift LAVELL drainage is all serous Chest tube had 70 cc out last shift Ambulating independently Physical Exam Gastrointestinal (Abdomen): Inspection/Auscultation: normal bowel sounds and + abdominal surgical incision (Clean, dry and intact); abdomen not distended Percussion/Palpation: abdomen soft; abdomen nontender Results & Data Vital Signs (Past 12 Hours) Vital Signs Temp Pulse Pulse Resp BP Pulse Ox 04/23/19 07:19 96 H 04/23/19 07:00 37.1 C 100 H 20 127/84 92 04/23/19 04:24 37 C 103 H 18 120/71 91 04/23/19 00:07 37.1 C 04/22/19 23:49 104 H 04/22/19 23:00 37.6 C H 110 H 18 135/86 90 Laboratory Results 04/23/19 04/23/19 04/23/19 Range/Units 07:36 07:30 07:30 WBC 14.32 H (4.8-10.8) K/uL RBC 2.94 L (4.2-5.4) M/uL Hgb 7.5 L (12.0-16.0) g/dL Hct 21.9 L (37-47) % MCV 74.5 L (80-100) fL MCH 25.5 (25-34) pg MCHC 34.2 (32-36) g/dL RDW Std Deviation 42.1 (36.4-46.3) fL RDW Coeff of Mine 15.5 H (11.5-14.5) % Plt Count 423 H (130-400) K/uL MPV 9.1 (7.4-10.4) fL Immature Gran % (Auto) 8.2 % Neut % (Auto) 67.3 % Lymph % (Auto) 11.5 % Barn[place] % (Auto) 9.6 % Eos % (Auto) 2.9 % Baso % (Auto) 0.5 % Immature Gran # (Auto) 1.17 H (0.00-0.02) K/uL Neut # (Auto) 9.65 H (1.4-6.5) K/uL Lymph # (Auto) 1.64 (1.2-3.4) K/uL Barnwell # (Auto) 1.38 H (0.11-0.59) K/uL Eos # (Auto) 0.41 (0-0.5) K/uL Baso # (Auto) 0.07 (0-0.2) K/uL Absolute Nucleated RBC 0.04 H (0-0) K/uL Nucleated RBC % (auto) 0.3 % Hypochromasia Present Sodium 138 (136-145) mmol/L Potassium 3.2 L (3.5-5.1) mmol/L Chloride 107 (98-107) mmol/L Carbon Dioxide 23 (21-32) mmol/L Anion Gap 8.0 (3-11) BUN 5 L (7-18) mg/dl Creatinine 0.29 L (0.6-1.2) mg/dl Est Cr Clr Drug Dosing 311.6 ml/min Est GFR ( Amer) > 150.0 Est GFR (Non-Af Amer) 143.8 BUN/Creatinine Ratio 16.1 (10-20) Glucose 109 H (70-99) mg/dl POC Glucose 113 H (70-99) Calcium 7.3 L (8.5-10.1) mg/dl Phosphorus 1.6 L (2.5-4.9) mg/dl Total Bilirubin 0.4 (0.2-1) mg/dl AST 19 (15-37) U/L ALT 20 (12-78) U/L Alkaline Phosphatase 81 (45-117) U/L Total Protein 5.3 L (6.4-8.2) gm/dl Albumin 1.7 L (3.4-5.0) gm/dl Globulin 3.6 (2.5-4.0) gm/dl Albumin/Globulin Ratio 0.5 L (0.9-2) Blood Type Antibody Screen Crossmatch 04/23/19 04/23/19 04/22/19 Range/Units 04:02 00:00 21:01 WBC (4.8-10.8) K/uL RBC (4.2-5.4) M/uL Hgb (12.0-16.0) g/dL Hct (37-47) % MCV (80-100) fL MCH (25-34) pg MCHC (32-36) g/dL RDW Std Deviation (36.4-46.3) fL RDW Coeff of Mine (11.5-14.5) % Plt Count (130-400) K/uL MPV (7.4-10.4) fL Immature Gran % (Auto) % Neut % (Auto) % Lymph % (Auto) % Barnwell % (Auto) % Eos % (Auto) % Baso % (Auto) % Immature Gran # (Auto) (0.00-0.02) K/uL Neut # (Auto) (1.4-6.5) K/uL Lymph # (Auto) (1.2-3.4) K/uL Barnwell # (Auto) (0.11-0.59) K/uL Eos # (Auto) (0-0.5) K/uL Baso # (Auto) (0-0.2) K/uL Absolute Nucleated RBC (0-0) K/uL Nucleated RBC % (auto) % Hypochromasia Sodium (136-145) mmol/L Potassium (3.5-5.1) mmol/L Chloride (98-107) mmol/L Carbon Dioxide (21-32) mmol/L Anion Gap (3-11) BUN (7-18) mg/dl Creatinine (0.6-1.2) mg/dl Est Cr Clr Drug Dosing ml/min Est GFR ( Amer) Est GFR (Non-Af Amer) BUN/Creatinine Ratio (10-20) Glucose (70-99) mg/dl POC Glucose 114 H 127 H 114 H (70-99) Calcium (8.5-10.1) mg/dl Phosphorus (2.5-4.9) mg/dl Total Bilirubin (0.2-1) mg/dl AST (15-37) U/L ALT (12-78) U/L Alkaline Phosphatase (45-117) U/L Total Protein (6.4-8.2) gm/dl Albumin (3.4-5.0) gm/dl Globulin (2.5-4.0) gm/dl Albumin/Globulin Ratio (0.9-2) Blood Type Antibody Screen Crossmatch 04/22/19 04/22/19 04/22/19 Range/Units 16:38 16:22 16:22 WBC (4.8-10.8) K/uL RBC (4.2-5.4) M/uL Hgb 7.7 L (12.0-16.0) g/dL Hct (37-47) % MCV (80-100) fL MCH (25-34) pg MCHC (32-36) g/dL RDW Std Deviation (36.4-46.3) fL RDW Coeff of Mine (11.5-14.5) % Plt Count (130-400) K/uL MPV (7.4-10.4) fL Immature Gran % (Auto) % Neut % (Auto) % Lymph % (Auto) % Barnwell % (Auto) % Eos % (Auto) % Baso % (Auto) % Immature Gran # (Auto) (0.00-0.02) K/uL Neut # (Auto) (1.4-6.5) K/uL Lymph # (Auto) (1.2-3.4) K/uL Barnwell # (Auto) (0.11-0.59) K/uL Eos # (Auto) (0-0.5) K/uL Baso # (Auto) (0-0.2) K/uL Absolute Nucleated RBC (0-0) K/uL Nucleated RBC % (auto) % Hypochromasia Sodium (136-145) mmol/L Potassium (3.5-5.1) mmol/L Chloride (98-107) mmol/L Carbon Dioxide (21-32) mmol/L Anion Gap (3-11) BUN (7-18) mg/dl Creatinine (0.6-1.2) mg/dl Est Cr Clr Drug Dosing ml/min Est GFR ( Amer) Est GFR (Non-Af Amer) BUN/Creatinine Ratio (10-20) Glucose (70-99) mg/dl POC Glucose 131 H (70-99) Calcium (8.5-10.1) mg/dl Phosphorus (2.5-4.9) mg/dl Total Bilirubin (0.2-1) mg/dl AST (15-37) U/L ALT (12-78) U/L Alkaline Phosphatase (45-117) U/L Total Protein (6.4-8.2) gm/dl Albumin (3.4-5.0) gm/dl Globulin (2.5-4.0) gm/dl Albumin/Globulin Ratio (0.9-2) Blood Type O Positive Antibody Screen NEGATIVE Crossmatch 04/22/19 04/22/19 04/19/19 Range/Units 16:22 11:35 16:39 WBC (4.8-10.8) K/uL RBC (4.2-5.4) M/uL Hgb (12.0-16.0) g/dL Hct (37-47) % MCV (80-100) fL MCH (25-34) pg MCHC (32-36) g/dL RDW Std Deviation (36.4-46.3) fL RDW Coeff of Mine (11.5-14.5) % Plt Count (130-400) K/uL MPV (7.4-10.4) fL Immature Gran % (Auto) % Neut % (Auto) % Lymph % (Auto) % Barnwell % (Auto) % Eos % (Auto) % Baso % (Auto) % Immature Gran # (Auto) (0.00-0.02) K/uL Neut # (Auto) (1.4-6.5) K/uL Lymph # (Auto) (1.2-3.4) K/uL Barnwell # (Auto) (0.11-0.59) K/uL Eos # (Auto) (0-0.5) K/uL Baso # (Auto) (0-0.2) K/uL Absolute Nucleated RBC (0-0) K/uL Nucleated RBC % (auto) % Hypochromasia Sodium (136-145) mmol/L Potassium (3.5-5.1) mmol/L Chloride (98-107) mmol/L Carbon Dioxide (21-32) mmol/L Anion Gap (3-11) BUN (7-18) mg/dl Creatinine (0.6-1.2) mg/dl Est Cr Clr Drug Dosing ml/min Est GFR ( Amer) Est GFR (Non-Af Amer) BUN/Creatinine Ratio (10-20) Glucose (70-99) mg/dl POC Glucose 130 H (70-99) Calcium (8.5-10.1) mg/dl Phosphorus 1.9 L (2.5-4.9) mg/dl Total Bilirubin (0.2-1) mg/dl AST (15-37) U/L ALT (12-78) U/L Alkaline Phosphatase (45-117) U/L Total Protein (6.4-8.2) gm/dl Albumin (3.4-5.0) gm/dl Globulin (2.5-4.0) gm/dl Albumin/Globulin Ratio (0.9-2) Blood Type Antibody Screen Crossmatch See Detail
--- NOTE | 2019-04-23 10:10 | XRay Report ---
XR chest 1V portable HISTORY: continuing follow up of pneumothorax COMPARISON: Chest 04/22/2019. FINDINGS: The right-sided chest tube does not appear to be located within the pleural space and appea rs to be lateral to the right ribs. Lucency within the right lung apex suggest a residual tiny pneumo thorax. The heart remains enlarged. There are low lung volumes. Trace bilateral pleural effusions. Mi ld central pulmonary congestion without overt edema. IMPRESSION: 1. The right-sided chest tube is now lateral to the chest wall and is therefore not within the pleura l space. 2. Lucency within the right lung apex persists and suggest a residual tiny pneumothorax. 3. This finding was called/faxed to the referring physician following dictation. Electronically signed by: Jeffery Slaughter M.D. 04/23/2019 10:09 AM
[2019-04-23] MEDS ORDERED: POTASSIUM PHOS 3 MMOL/1 ML INFUSION IV STA (10:15)
[2019-04-23] MEDS ORDERED: POTASSIUM PHOSPHATE 30 MMOL in SODIUM CHLORIDE 0.9% 500 ML IV ONE (10:30)
--- NOTE | 2019-04-23 10:37 | Progress Note ---
DATE: 04/23/2019 Ms. Trejo was seen this morning on 04/23/2019. She looks great. Her chest tube has drained very little serous fluid. Her x-ray looks quite good with no evidence of pneumothorax or pleural effusion. I removed her chest tube. Her site looks clean. She tolerated it well. We will check an x-ray in the department later today. I have discussed this case with Dr. Zimmerman.
--- NOTE | 2019-04-23 11:05 | Family Medicine Progress Note ---
Date of Service April 23, 2019 Assessment & Plan (1) Sepsis: 39 yo female with post-hysterectomy abscess formation and sepsis on POD 3 of exploratory laparotomy with lavage and ileostomy formation. Sepsis secondary to post-op hysterectomy abscess formation SIRS criteria met on admission (HR > 90bpm and WBC >12,000) and infectious etiology identified (fluid collection seen on abdominal CT after laproscopic hysterectomy with suspicion for bowel perforation) - currently POD 3 of ex-laparotomy with lavage clean out and ileostomy formation; per surgery note: specific site of bowel perforation was not identified during ex-lap procedure; suspicious region of bowel was resected and ileostomy loop was created; ileostomy bag in place and draining bilious fluid - patient is clinically improving (afebrile, HR down to 99) Lactate improved from 1.8 to 0.8 04/21 - WBC count continues to trend down since surgery; at 14 today (04/23) - per surgery: continue broad-spectrum IV antibioticsZosyn and vancomycin - IV Normosol was d/c today as patient was volume overloaded on exam and has received over 20 liters of IVF since arrival; Cr. at 0.29 04/23 - PT/OT consulted R sided pneumothorax -visualized on CT scan 04/21; etiology unknown -chest tube removed today Anemia - possible etiologies include surgical blood loss, hematoma formation - Hgb 10.0 on 04/18 ; at 7.5 today - type and screen ordered in the event patient needs transfusion -continue to monitor with daily CBCs Electrolyte Derangements - phosphorus low at 1.6; ordered 30mmol of Potassium Phosphate for replacement - K at 3.3, anticipate improvement with above replacement - Mag WNL at 2,2 - corrected calcium normal at 9.1 -sodium stable at 138 -continue to monitor with daily BMPs and phosphorus levels Status post hysterectomy Continue pain control with oxycodone/acetaminophen prn Hypothyroidism Continue home dose Synthroid Non-insulin dependent diabetes mellitus Sliding scale while in hospital Mood disorder Continue home dose paroxetine, Seroquel, topiramate DVT prophylaxis: bilateral SCDs CODE STATUS: full FEN/GI: n.p.o. except for chips, sips, meds Dispo: jane/surg floor (2) Status post exploratory laparotomy: 39 yo F POD18 from elective laparoscopic hysterectomy with left oophorectomy complicated by abscess formation, POD12 from exploratory laparoscopy with diverting loop ileostomy creation. - Patient clinically improving (normal vitals); WBC did increase from 10 yesterday to 12 today. - repeat A/P CT 04/30 showed improvement (decreasing size) of known abscesses; no new abscesses noted - IV zosyn converted to PO Augmentin on 05/01 - changed PO oxycodone to PO percocet with the thought that added tylenol will more more sustained analgesia - as for her fluid balance, review of I/Os suggests Mrs. Woody has totally direused herself (she had received over 22L of fluid throughout her hospital stay). we will ask nursing to weigh her today and confirm to weights taken at beginning of hospital stay - general surgery and OB following - patient likely will be discharged with LAVELL drains in place and have them pulled in outpatient surgery clinic - expectant management DVT PPX: Heparin 5,000 units, SQ, tid. Famotidine PO for stress ulcer prophylaxis. Fluids and nutrition: Diabetic diet Dispo: Floor CODE STATUS: Full (3) Acute kidney injury: - pre-operative Cr was 0.69 on 04/08/19 - serum creatinine at 1.67 today, down from 1.76 on 05/01 - d/c of IV vancomycin on 04/27 - etiology AIN (related to renotoxic meds) vs. ATN (secondary to previous septic state). - Urine Na 46, FeNa of 2.7 suggestive of intrarenal etiology - urine eosinophils negative 04/29 - urine culture grew Entrobacter sensitive to zosyn (patient completed course of IV zosyn) - spoke with nephrology about this patient (no formal consult placed) who encouraged expectant management - continue to monitor with daily BMPs (4) Hydropneumothorax: Mrs. Woody developed a R sided hydropneumothorax during her hospital stay, first visualized on a chest CT on 04/20, prior to her exploratory laparotomy. The etiology of the hydropneumothorax is unknown. A chest tube was placed to drain the fluid by CT Surgery, and was subsequently removed. Fluid analysis was benign (gram stain, fungal, and acid fast bacilli smears and cultures all showing no growth). CXR done on 04/30 suggested resolution as no evidence of pneumothorax was noted in impression. (5) Anemia: Mrs. Woody was found to be anemic during her hospital stay. Review of her records indicate she had some baseline anemia prior to her hysterectomy (Hgbs running 10-10.5). Blood loss during surgery and post-procedure hematoma formati on resulted in a further decline. She was transfused 1 unit of pRBCs on 04/24 when her hgb dropped to 6.9. - hgb 8.7 today, up from 8.6 on 05/01 - s/p 1 u pRBC transfusion 04/24 - etiology likely post-surgical blood loss/hematoma formation - we would not recommend transfusing again unless hgb drops below 7.0 (6) Status post hysterectomy with oophorectomy: As above (7) Abdominal abscess: - s/p ex-lap with lavage and diverting ileostomy formation with bag on 04/20 - MRSA nasal culture neg 04/21 - IV vancomycin d/c 04/27; IV zosyn converted to PO Augmentin 05/01 - blood cultures drawn 04/19 negative to date (8) Hypothyroid: continue home does levothyroxine 75 mcg daily (9) Depression: Supervising Physician Co-Signing Physician Notes Attending attestation Pt seen and examined in concert with Dr. Sexton. In agreement with the documented findings as noted in the resident documentation with any exceptions or additions as noted here. Resting comfortably in bed, pain well controlled at present, improved overall from previous. Passing some flatus, +ve output in ostomy bag. Drains in place w/ small amt of serous drainage. Chest tube absent. On examination, S1/S2 nl RRR no MCG. CTAB. 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 Continue IV abx and follow cultures, to transition to PO on discharge. Lower extremity edema - hold IVF 2/2 ~20L +ve and tolerating sips. R hydropneumothorax s/p chest tube - improved, decreased but present breath sounds DMII - continue sliding scale. Else see resident documentation as noted. Subjective No acute events overnight. Feeling better today compared to yesterday. Ambulated down the bustamante yesterday, intends to do the same today as tolerated. Surgery permitted her to add apple juice to her diet today. She is urinating without difficulty and has not had a BM due to GI loss through ileostomy. Physical Exam Constitutional: WD/WN, vitals as above + overweight Eyes: + anicteric sclerae ENMT: external ear and nose normal, oropharynx normal Neck: trachea midline, no thyromegaly trachea midline Respiratory: normal respiratory effort, lungs clear to auscultation Auscultation: no crackles, no rales and no wheezes Cardiovascular: Heart Sounds: normal S1, normal S2 and + murmur (functional ) Extremities: + pedal edema Gastrointestinal (Abdomen): Inspection/Auscultation: + abdominal wall ecchymosis (fading since onset), + significant pannus, + abdominal surgical scar, + abdominal surgical incision (clean, dry and intact without surrounding erythema; overlying bandages) and + abdominal surgical drain present ([address] draining small amount of serosanguinous fluid); abdomen not distended Percussion/Palpation: abdomen soft; abdomen nontender (RUQ only) and no guarding Ileostomy bag in place draining bilious fluid Skin: no rashes, warm and dry Neurologic: awake Psychiatric: A+Ox3, euthymic affect Results & Data Vital Signs (Past 12 Hours) Vital Signs Temp Pulse Pulse Resp BP Pulse Ox 04/23/19 07:19 96 H 04/23/19 07:00 37.1 C 100 H 20 127/84 92 04/23/19 04:24 37 C 103 H 18 120/71 91 04/23/19 00:07 37.1 C 04/22/19 23:49 104 H Laboratory Results 04/23/19 04/23/19 04/23/19 Range/Units 13:36 11:43 07:36 WBC (4.8-10.8) K/uL RBC (4.2-5.4) M/uL Hgb (12.0-16.0) g/dL Hct (37-47) % MCV (80-100) fL MCH (25-34) pg MCHC (32-36) g/dL RDW Std Deviation (36.4-46.3) fL RDW Coeff of Mine (11.5-14.5) % Plt Count (130-400) K/uL MPV (7.4-10.4) fL Immature Gran % (Auto) % Neut % (Auto) % Lymph % (Auto) % Wilkes % (Auto) % Eos % (Auto) % Baso % (Auto) % Immature Gran # (Auto) (0.00-0.02) K/uL Neut # (Auto) (1.4-6.5) K/uL Lymph # (Auto) (1.2-3.4) K/uL Wilkes # (Auto) (0.11-0.59) K/uL Eos # (Auto) (0-0.5) K/uL Baso # (Auto) (0-0.2) K/uL Absolute Nucleated RBC (0-0) K/uL Nucleated RBC % (auto) % Hypochromasia Sodium (136-145) mmol/L Potassium (3.5-5.1) mmol/L Chloride (98-107) mmol/L Carbon Dioxide (21-32) mmol/L Anion Gap (3-11) BUN (7-18) mg/dl Creatinine (0.6-1.2) mg/dl Est Cr Clr Drug Dosing ml/min Est GFR ( Amer) Est GFR (Non-Af Amer) BUN/Creatinine Ratio (10-20) Glucose (70-99) mg/dl POC Glucose 106 H 113 H (70-99) Calcium (8.5-10.1) mg/dl Phosphorus (2.5-4.9) mg/dl Total Bilirubin (0.2-1) mg/dl AST (15-37) U/L ALT (12-78) U/L Alkaline Phosphatase (45-117) U/L Total Protein (6.4-8.2) gm/dl Albumin (3.4-5.0) gm/dl Globulin (2.5-4.0) gm/dl Albumin/Globulin Ratio (0.9-2) Vancomycin Trough 9.6 (See Comment) mcg/ml Blood Type Antibody Screen 04/23/19 04/23/19 04/23/19 Range/Units 07:30 07:30 04:02 WBC 14.32 H (4.8-10.8) K/uL RBC 2.94 L (4.2-5.4) M/uL Hgb 7.5 L (12.0-16.0) g/dL Hct 21.9 L (37-47) % MCV 74.5 L (80-100) fL MCH 25.5 (25-34) pg MCHC 34.2 (32-36) g/dL RDW Std Deviation 42.1 (36.4-46.3) fL RDW Coeff of Mine 15.5 H (11.5-14.5) % Plt Count 423 H (130-400) K/uL MPV 9.1 (7.4-10.4) fL Immature Gran % (Auto) 8.2 % Neut % (Auto) 67.3 % Lymph % (Auto) 11.5 % Wilkes % (Auto) 9.6 % Eos % (Auto) 2.9 % Baso % (Auto) 0.5 % Immature Gran # (Auto) 1.17 H (0.00-0.02) K/uL Neut # (Auto) 9.65 H (1.4-6.5) K/uL Lymph # (Auto) 1.64 (1.2-3.4) K/uL Wilkes # (Auto) 1.38 H (0.11-0.59) K/uL Eos # (Auto) 0.41 (0-0.5) K/uL Baso # (Auto) 0.07 (0-0.2) K/uL Absolute Nucleated RBC 0.04 H (0-0) K/uL Nucleated RBC % (auto) 0.3 % Hypochromasia Present Sodium 138 (136-145) mmol/L Potassium 3.2 L (3.5-5.1) mmol/L Chloride 107 (98-107) mmol/L Carbon Dioxide 23 (21-32) mmol/L Anion Gap 8.0 (3-11) BUN 5 L (7-18) mg/dl Creatinine 0.29 L (0.6-1.2) mg/dl Est Cr Clr Drug Dosing 311.6 ml/min Est GFR ( Amer) > 150.0 Est GFR (Non-Af Amer) 143.8 BUN/Creatinine Ratio 16.1 (10-20) Glucose 109 H (70-99) mg/dl POC Glucose 114 H (70-99) Calcium 7.3 L (8.5-10.1) mg/dl Phosphorus 1.6 L (2.5-4.9) mg/dl Total Bilirubin 0.4 (0.2-1) mg/dl AST 19 (15-37) U/L ALT 20 (12-78) U/L Alkaline Phosphatase 81 (45-117) U/L Total Protein 5.3 L (6.4-8.2) gm/dl Albumin 1.7 L (3.4-5.0) gm/dl Globulin 3.6 (2.5-4.0) gm/dl Albumin/Globulin Ratio 0.5 L (0.9-2) Vancomycin Trough (See Comment) mcg/ml Blood Type Antibody Screen 04/23/19 04/22/19 04/22/19 Range/Units 00:00 21:01 16:38 WBC (4.8-10.8) K/uL RBC (4.2-5.4) M/uL Hgb (12.0-16.0) g/dL Hct (37-47) % MCV (80-100) fL MCH (25-34) pg MCHC (32-36) g/dL RDW Std Deviation (36.4-46.3) fL RDW Coeff of Mine (11.5-14.5) % Plt Count (130-400) K/uL MPV (7.4-10.4) fL Immature Gran % (Auto) % Neut % (Auto) % Lymph % (Auto) % Wilkes % (Auto) % Eos % (Auto) % Baso % (Auto) % Immature Gran # (Auto) (0.00-0.02) K/uL Neut # (Auto) (1.4-6.5) K/uL Lymph # (Auto) (1.2-3.4) K/uL Wilkes # (Auto) (0.11-0.59) K/uL Eos # (Auto) (0-0.5) K/uL Baso # (Auto) (0-0.2) K/uL Absolute Nucleated RBC (0-0) K/uL Nucleated RBC % (auto) % Hypochromasia Sodium (136-145) mmol/L Potassium (3.5-5.1) mmol/L Chloride (98-107) mmol/L Carbon Dioxide (21-32) mmol/L Anion Gap (3-11) BUN (7-18) mg/dl Creatinine (0.6-1.2) mg/dl Est Cr Clr Drug Dosing ml/min Est GFR ( Amer) Est GFR (Non-Af Amer) BUN/Creatinine Ratio (10-20) Glucose (70-99) mg/dl POC Glucose 127 H 114 H 131 H (70-99) Calcium (8.5-10.1) mg/dl Phosphorus (2.5-4.9) mg/dl Total Bilirubin (0.2-1) mg/dl AST (15-37) U/L ALT (12-78) U/L Alkaline Phosphatase (45-117) U/L Total Protein (6.4-8.2) gm/dl Albumin (3.4-5.0) gm/dl Globulin (2.5-4.0) gm/dl Albumin/Globulin Ratio (0.9-2) Vancomycin Trough (See Comment) mcg/ml Blood Type Antibody Screen 04/22/19 04/22/19 04/22/19 Range/Units 16:22 16:22 16:22 WBC (4.8-10.8) K/uL RBC (4.2-5.4) M/uL Hgb 7.7 L (12.0-16.0) g/dL Hct (37-47) % MCV (80-100) fL MCH (25-34) pg MCHC (32-36) g/dL RDW Std Deviation (36.4-46.3) fL RDW Coeff of Mine (11.5-14.5) % Plt Count (130-400) K/uL MPV (7.4-10.4) fL Immature Gran % (Auto) % Neut % (Auto) % Lymph % (Auto) % Wilkes % (Auto) % Eos % (Auto) % Baso % (Auto) % Immature Gran # (Auto) (0.00-0.02) K/uL Neut # (Auto) (1.4-6.5) K/uL Lymph # (Auto) (1.2-3.4) K/uL Wilkes # (Auto) (0.11-0.59) K/uL Eos # (Auto) (0-0.5) K/uL Baso # (Auto) (0-0.2) K/uL Absolute Nucleated RBC (0-0) K/uL Nucleated RBC % (auto) % Hypochromasia Sodium (136-145) mmol/L Potassium (3.5-5.1) mmol/L Chloride (98-107) mmol/L Carbon Dioxide (21-32) mmol/L Anion Gap (3-11) BUN (7-18) mg/dl Creatinine (0.6-1.2) mg/dl Est Cr Clr Drug Dosing ml/min Est GFR ( Amer) Est GFR (Non-Af Amer) BUN/Creatinine Ratio (10-20) Glucose (70-99) mg/dl POC Glucose (70-99) Calcium (8.5-10.1) mg/dl Phosphorus 1.9 L (2.5-4.9) mg/dl Total Bilirubin (0.2-1) mg/dl AST (15-37) U/L ALT (12-78) U/L Alkaline Phosphatase (45-117) U/L Total Protein (6.4-8.2) gm/dl Albumin (3.4-5.0) gm/dl Globulin (2.5-4.0) gm/dl Albumin/Globulin Ratio (0.9-2) Vancomycin Trough (See Comment) mcg/ml Blood Type O Positive Antibody Screen NEGATIVE PG Care Time/CCT Total # of Minutes Spent Total Time Spent with Patient: Total time spent is greater than 50% in c oordination of care (as documented) at patient's floor/unit and/or counseling patient: Resident Activity Tracking Resident Involvement: Resident Care Provided Care Provided: Adult Hospital Medicine (1) Sepsis Sepsis acute organ dysfunction status: unspecified Sepsis type: sepsis due to unspecified organism Qualified Code(s): A41.9 - Sepsis, unspecified organism
--- NOTE | 2019-04-23 12:18 | Surgery Progress Note ---
Date of Service April 23, 2019 Subjective POD#2 doing better today chest tube removed ambulating well ileostomy tube draining incision with serous drainage from J-P extremities normal no edema neg Brenda's continue per surgery Results & Data Vital Signs (Past 12 Hours) Vital Signs Temp Pulse Pulse Resp BP Pulse Ox 04/23/19 11:25 36.8 C 94 H 20 128/79 96 04/23/19 07:19 96 H 04/23/19 07:00 37.1 C 100 H 20 127/84 92 04/23/19 04:24 37 C 103 H 18 120/71 91
--- NOTE | 2019-04-23 12:19 | Surgery Progress Note ---
Date of Service April 23, 2019 Assessment & Plan (1) Hydropneumothorax: Chest tube removed today (2) S/P ileostomy: (3) Status post exploratory laparotomy: POD#3. Site of bowel perforation was not identified during ex-lap procedure; ileostomy loop was created; ileostomy bag in place and draining bilious fluid - Patient is clinically improving (afebrile, HR down to 99) - WBC count continues to trend down since surgery; at 14 today (04/23) - Continue broad-spectrum IV antibioticsZosyn and vancomycin Subjective Postoperative day #3 status post exploratory laparotomy with drainage of abscess and formation of ileostomy. Patient doing well. Minimal serosangious drainage from bilateral pelvic drains. Chest tube removed. Ambulating without difficulty. Pain controlled. Diet advance to full liquid diet. Denies nausea and vomiting. Physical Exam Respiratory: normal respiratory effort, lungs clear to auscultation normal respiratory effort Cardiovascular: Rate/Rhythm: regular rate Gastrointestinal (Abdomen): Inspection/Auscultation: abdomen normal to inspection and normal bowel sounds Obese. Tender over LLQ hematoma (which is stable/non-expanding) Results & Data Vital Signs (Past 12 Hours) Vital Signs Temp Pulse Pulse Resp BP Pulse Ox 04/23/19 11:25 36.8 C 94 H 20 128/79 96 04/23/19 07:19 96 H 04/23/19 07:00 37.1 C 100 H 20 127/84 92 04/23/19 04:24 37 C 103 H 18 120/71 91
--- NOTE | 2019-04-23 13:22 | XRay Report ---
XR chest 2V PA/lateral HISTORY: chest tube removal - in department COMPARISON: Chest 04/23/2019. FINDINGS: The right-sided chest tube is now completely removed. Tiny right apical pneumothorax with a pleural gap of 4 mm. This is unchanged. The heart remains enlarged. Trace bilateral pleural effusion s and bibasilar densities persist. No evidence for pulmonary edema. IMPRESSION: 1. Complete removal of the right-sided chest tube. 2. Tiny right pneumothorax, unchanged. 3. Trace bilateral pleural effusions and bibasilar densities persist. Electronically signed by: Jeffery Slaughter M.D. 04/23/2019 1:21 PM
--- NOTE | 2019-04-23 14:37 | Pharmacy Report ---
Pharmacy Abx Dose Short Note - Date of Service April 23, 2019 - Assessment & Plan Laboratory Tests 04/21/19 04/22/19 04/22/19 03:42 03:37 07:10 WBC 16.35 H 15.15 H Creatinine Vancomycin Trough 7.7 04/22/19 04/23/19 04/23/19 07:10 07:30 07:30 WBC 14.32 H Creatinine 0.38 L 0.29 L Vancomycin Trough 04/23/19 13:36 WBC Creatinine Vancomycin Trough 9.6 Assessment * 39 year old F receiving ZOSYN + VANCOMYCIN IV therapy for intra-abd infection (perf bowel, recent h/o lap hysterectomy w/ L salpingo-oophrectomy 04/16/19) as well as hydropneumothorax and CXR w/ b/l opacities * Day # 5 of Zosyn, Day # 3 Vancomycin * BLCXs - NO GROWTH * pleural fluid - no growth in preliminary gram stain * MRSA nasal swab was negative * WBCs trending down, afebrile Plan Vancomycin - currently receiving 1750mg IV Q8H * Trough level of 9.6 mcg/mL is subtherapeutic, but 1000 dose yesterday was delayed and times had to be adjusted, so patient may not be quite at steady state. * Change to Vancomycin 2000 mg (18.5mg/kg) IV every 8 hours at this time * Goal trough level for intrabdominal infection : 15 to 20 mcg/mL * Trough level ordered for: 04/24/19 - will need to monitor for accumulation in obese patient Zosyn * continue 4.5gm ext-infusion Q 8 hrs * eCrCl > 20cc/min; BMI > 35
[2019-04-23] MEDS ORDERED: VANCOMYCIN HCL 2,000 MG in SODIUM CHLORIDE 0.9% 500 ML IV SCH (20:00)
[2019-04-23] MEDS: QUETIAPINE FUMARATE 200 MG TAB PO SCH (21:08)
[2019-04-23] MEDS: TOPIRAMATE 100 MG TAB PO SCH (21:08)
[2019-04-23] MEDS: PARoxetine HCl 20 MG TAB PO SCH (21:08)
[2019-04-23] MEDS: VANCOMYCIN HCL 2,000 MG in SODIUM CHLORIDE 0.9% 500 ML IV SCH (21:17)
[2019-04-23] MEDS: MoRPHine SULFATE 4 MG/ML 1 ML CARP\\VIAL IV PRN (22:55)
[2019-04-23] MEDS: ALUMINUM/MAGNESIUM SUSP 30 ML UDC PO SCH (23:20)
[2019-04-24] MEDS: INSULIN ASPART 100 UNITS/ML 3 ML PEN SC SCH ×6 (00:10→20:46)
[2019-04-24] MEDS: MoRPHine SULFATE 4 MG/ML 1 ML CARP\\VIAL IV PRN ×5 (02:21→21:28)
[2019-04-24] MEDS: FAMOTIDINE 20 MG in SYRINGE 3 ML IV SCH ×2 (03:50→16:09)
[2019-04-24] MEDS: VANCOMYCIN HCL 2,000 MG in SODIUM CHLORIDE 0.9% 500 ML IV SCH ×2 (03:50→12:36)
[2019-04-24] MEDS: LEVOTHYROXINE SODIUM 75 MCG TABLET PO SCH (06:07)
[2019-04-24] MEDS: PIPERACILLIN/TAZOBACTAM 4.5 GM in DEXTROSE 5% 100 ML IV SCH ×3 (06:08→22:39)
[2019-04-24] MEDS: ALUMINUM/MAGNESIUM SUSP 30 ML UDC PO SCH ×4 (06:14→23:57)
--- NOTE | 2019-04-24 07:06 | XRay Report ---
XR chest 1V portable HISTORY: 39 years-old Female pleural effusion follow-up study in a patient with trace pleural effusi ons COMPARISON: Chest radiographs 04/23/2019 TECHNIQUE: Portable AP view of the chest FINDINGS: Previously noted tiny right apical pneumothorax is no longer identified. Trace pleural effusions with patchy bibasilar opacities redemonstrated. Mild prominence of the cardiac silhouette is likely secon rc to technique. No overt pulmonary edema. Bones appear grossly intact. IMPRESSION: 1. Previously noted tiny right apical pneumothorax not identified on today's exam. 2. Trace pleural effusions with persistent bibasilar consolidative opacities redemonstrated. The above report was generated using voice recognition software. It may contain grammatical, syntax o r spelling errors. Electronically signed by: Tariq Marie M.D. 04/24/2019 7:05 AM
[2019-04-24 07:26] LABS: Hematocrit (blood only) 21.8 % (37-47); Hemoglobin 7.2 g/dL (12.0-16.0); Mean Corpuscular Hemoglobin 24.9 pg (25-34); Mean Corpuscular Volume 75.4 fL (80-100); Mean Platelet Volume 9.1 fL (7.4-10.4); Nucleated RBC # (auto) 0.07 K/uL (0-0); Nucleated RBC % (auto) 0.5 %; Platelet Count 482 K/uL (130-400); RDW Coefficient of Variation 15.8 % (11.5-14.5); RDW Standard Deviation 43.7 fL (36.4-46.3); Red Blood Count 2.89 M/uL (4.2-5.4); White Blood Count 15.63 K/uL (4.8-10.8)
[2019-04-24 07:58] LABS: BUN Creatinine Ratio 6.8 (10-20); Calcium 7.4 mg/dl (8.5-10.1); Creatinine Clr Calc Pharmacy 220.4 ml/min; Est GFR (African American) 148.7; Est GFR (Non-African American) 128.3; Potassium 3.3 mmol/L (3.5-5.1)
[2019-04-24 08:03] LABS: Phosphorus 2.5 mg/dl (2.5-4.9)
[2019-04-24 08:07] LABS: ANC (manual) 11.41 K/uL (1.4-6.5); Basophils # (manual) 0.14 K/uL (0-0.2); Basophils % (manual) 0.9 %; Eosinophils # (manual) 0.41 K/uL (0-0.5); Eosinophils % (manual) 2.6 %; Lymphocytes % (manual) 9.6 %; Metamyelocytes # (manual) 0.41 K/uL (0-0); Metamyelocytes % (manual) 2.6 %; Monocytes # (manual) 0.41 K/uL (0.11-0.59); Monocytes % (manual) 2.6 %; Myelocytes # (manual) 1.36 K/uL (0-0); Myelocytes % (manual) 8.7 %; Neutrophils # (manual) 11.41 K/uL (1.4-6.5); Toxic Granulation 2+
--- NOTE | 2019-04-24 09:22 | Surgery Progress Note ---
Date of Service April 24, 2019 Assessment & Plan (1) Abdominal abscess: clinically continues to improve WBC slightly bumped today. afebrile. if continues to trend up may need CT of chest/abd/pelvis stoma functioning--will increase diet to full liquids per pt request. Subjective pt seen. no new complaints. "hungry". megan clears. no n/v. pain controlled/slowly improving. Physical Exam Physical Exam: OOB in chair. appears comfortable/NAD Abd: soft. ileostomy looks good. + loose stool output right LAVELL with small amount of cloudy fluid. left LAVELL empty. Results & Data Vital Signs (Past 12 Hours) Vital Signs Temp Pulse Pulse Resp BP BP Pulse Ox 04/24/19 07:44 36.8 C 90 20 130/85 93 04/24/19 03:05 37 C 98 H 18 123/77 94 04/24/19 00:22 89 04/23/19 23:03 36.9 C 107 H 18 129/75 94 PG Care Time/CCT Total # of Minutes Spent Total Time Spent with Patient: Total time spent is greater than 50% in coordinat ion of care (as documented) at patient's floor/unit and/or counseling patient:
--- NOTE | 2019-04-24 10:35 | Progress Note ---
DATE: 04/24/2019 Mr. Woody was seen today. She is sitting up in chair, eating a liquid breakfast. I removed her chest tube yesterday and her x-ray today looks quite good. I see no evidence of pleural effusion or pneumothorax or infiltrate. Her dressing is dry. At this point, I would wait a few more days and remove her chest tube dressing. I would like to check a chest x-ray in a few days to make sure she is not re-accumulating fluid. Overall, I am pleased with Marleny. She has responded nicely to Dr. Zimmerman's laparotomy.
--- NOTE | 2019-04-24 10:58 | Family Medicine Progress Note ---
Date of Service April 24, 2019 Subjective 39 yo F POD8 after laproscopic hysterectomy with left oopherectomy, POD3 after Exploratory laparotomy with loop ileostomy and right thor Results & Data Vital Signs (Past 12 Hours) Vital Signs Temp Pulse Pulse Resp BP BP Pulse Ox 04/24/19 07:44 36.8 C 90 20 130/85 93 04/24/19 03:05 37 C 98 H 18 123/77 94 04/24/19 00:22 89 04/23/19 23:03 36.9 C 107 H 18 129/75 94 PG Care Time/CCT Total # of Minutes Spent Total Time Spent with Patient: Total time spent is greater than 50% in coordination of care (as documented) at patient's floor/unit and/or counseling patient:
[2019-04-24] MEDS ORDERED: VANCOMYCIN TROUGH ONE (11:30)
--- NOTE | 2019-04-24 12:56 | Pharmacy Report ---
Pharmacy Abx Dose Short Note - Date of Service April 24, 2019 - Assessment & Plan Assessment 39 year old F receiving vancomycin and Zosyn for treatment of intra-abdominal infection s/p laparascopic hysterectomy on 04/16 and now s/p exploratory laparotomy for abscess drainage and cleanout on 04/20. Renal function is stable and patient remains afebrile over past 24 hours Day # 6 of Zosyn and day #4 of vancomycin Microbiology: Urine (04/19) - Enterobacter cloacae (sensitive to Zosyn) Blood cultures (04/19) - no growth to date Pleural fluid cultures (04/21) - no growth to date Plan Vancomycin * Trough level of 21 mcg/mL is slightly supratherapeutic * Most likely due to accumulation of previous doses * Change to 1750 mg IV every 8 hours * Goal trough level for intra-abdominal infection : 15 to 20 mcg/mL * Trough level ordered for: 04/25/19 @1330 Zosyn * Continue current regimen of 4.5 g IV q8h * Appropriate based on renal function and BMI > 35 Pharmacy will continue to follow and will adjust dose/frequency as necessary. Thank you.
[2019-04-24] MEDS: VANCOMYCIN HCL 1,750 MG in SODIUM CHLORIDE 0.9% 500 ML IV SCH ×2 (13:50→22:36)
--- NOTE | 2019-04-24 15:22 | Family Medicine Consultation ---
Date of Consultation April 24, 2019 Assessment & Plan (1) Abdominal pain: 39 yo F POD8 from elective laparoscopic hysterectomy with left oophorectomy, POD3 from exploratory laparoscopy with diverting loop ileostomy creation and right thoracostomy tube placement for right hydropneumothorax. - POD8 from hysterectomy and POD3 from ex lap with diverting loop ileostomy - still having pain to palpation but minimal pain at rest - nausea controlled with zofran, hydration - feels hungry and has been advanced to a liquid diet per surgery DVT PPX: SCDs. Holding off on chemical ppx 2/2 recent surgery. Fluids and nutrition: D/C'd fluids as tolerating oral and +11 L for the stay. Advanced to full liquid diet per surgery. Famotidine 5 mg IV BID for GI ppx. (2) Hydropneumothorax: - R chest thoracostomy tube placed - tiny pneumothorax now not present on CXR (3) Anemia: - slowly decreasing Hg from 9.1 on 04/20 to 7.2 today - no artis bleeding apparent. Mixed picture from multiple surgeries, baseline anemia prior to surgery and dilution. - consented for blood products earlier this week. - repeat CBC ordered for 5 pm; will transfuse 1U if <7. 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 Awaiting AFB and fungal pleural fluid cultures. - given afebrile status, negative cultures, appropriate treatment of UTI, could consider discontinuing antibiotic regimen. (7) Depression: (8) Hypothyroid: Supervising Physician Co-Signing Physician Notes Attending attestation Pt seen and examined in concert with Dr. Babb. In agreement with the documented findings as noted in the resident documentation with any exceptions or additions as noted here. Complaining of aching pain of the LLQ c/w formed ecchymosis surrounding port site for laparoscopic surgery which is minimally indurated and nonerythematous on examination. Some improvement in B/L LE edema and bloating overall. 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 Cultures negative for 48 hours from all sites with stable WBC postoperatively and minimal clinical symptoms. Recommend continue IV antibiotic therapy while WBC elevated and inpatient mgmt, but could with negative cultures be transitioned to PO augmentin or cipro/flagyl at primary team discretion. Anemia - monitor CBC w/ repeat this PM. Slowly diminishing despite limiting of IVF. Transfusion threshold @ 7. Lower extremity edema - holding dedicated IVF R hydropneumothorax s/p chest tube - improved, decreased but present breath sounds DMII - continue sliding scale. Else see resident documentation as noted. History of Present Illness History of Present Illness 39 yo F POD8 from elective laparoscopic hysterectomy with left oophorectomy, POD3 from exploratory laparoscopy with diverting loop ileostomy creation and right thoracostomy tube placement for right hydropneumothorax. Today expresses no shortness of breath or chest pain. Does express feeling b loated and "stretched" in her stomach. Denies nausea, vomiting. Allergies Allergy/AdvReac Type Severity Reaction Status Date / Time morphine AdvReac Intermediate NAUSEA Verified 04/19/19 20:41 VOMITING Home Medications Home Medications Medication Instructions Recorded Confirmed Type fluticasone propionate [Flonase 1 spray INTRANASAL QAM 04/02/19 04/19/19 History Allergy Relief] levothyroxine 75 mcg PO QAM 04/02/19 04/19/19 History metformin 500 mg PO BID 04/02/19 04/19/19 History omeprazole 40 mg PO QAM 04/02/19 04/19/19 History paroxetine HCl [Paxil] 40 mg PO HS 04/02/19 04/19/19 History quetiapine [Seroquel] 200 mg PO HS 04/02/19 04/19/19 History topiramate 100 mg PO HS 04/02/19 04/19/19 History docusate sodium [Colace] 100 mg PO BID #30 cap 04/16/19 04/19/19 Rx oxycodone-acetaminophen [Percocet] 1 tab PO Q4H PRN #14 tab 04/16/19 04/19/19 Rx acetaminophen 650 mg PO Q6H PRN 04/18/19 04/19/19 History ibuprofen 600 mg PO Q6H PRN 04/18/19 04/19/19 History ondansetron HCl [Zofran] 4 mg PO Q6H #10 tab 04/18/19 04/19/19 Rx oxycodone 5 mg PO Q6H PRN #14 tab 04/18/19 04/19/19 Rx simethicone 80 mg PO PCHS PRN 04/18/19 04/19/19 History Patient History Medical History Depression Diabetes mellitus, type 2 NIDDM GERD (gastroesophageal reflux disease) controlled Hypothyroidism Obesity Surgical History H/O oophorectomy RIGHT History of hysterectomy History of laparotomy OVARIAN CYSTECTOMY Family History Grandmother (Maternal) Family history of diabetes mellitus Grandmother (Paternal) Family history of diabetes mellitus Grandfather (Paternal) Family history of esophageal cancer Social History Preferred Language: Sami 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: Effective Pool Table Mechanic Required: No Beliefs That Will Affect Care: None marital status: Current Living Situation: Spouse current occupational status: employed Feels Safe at Home: Yes Safety Concerns: Feels Safe At This Time Smoking Status: Never smoker Second Hand Exposure: No ; Hx Alcohol Use: No Hx Substance Use: No Dental Care, Regularly: Yes Seatbelt Use: always Sunscreen Use: Yes Review of Systems Constitutional: + increased appetite; no fever, no chills and no sweats Respiratory: no cough, no dyspnea and no pain on inspiration Cardiovascular: + edema; no chest pain, no palpitations and no calf pain Gastrointestinal: + abdominal pain and + bloating; no nausea, no vomiting and no cramping Physical Exam Constitutional: + ill appearing, + obese and cooperative; not in distress Respiratory: normal respiratory effort, lungs clear to auscultation Cardiovascular: Rate/Rhythm: regular rate Vessels: no JVD Extremities: + pedal edema and + edema; no calf tenderness Gastrointestinal (Abdomen): Inspection/Auscultation: normal bowel sounds and + abdominal surgical incision Percussion/Palpation: + abdomen tender and abdomen soft; no guarding and abdomen not rigid laproscopy incisions healing well; large ecchymosis in LLQ. incision in that area does not appear infected though patient is TTP in that region and diffusely throughout abdomen, as is expected after abdominal surgery. Ostomy draining bilious fecal matter. Skin: + pallor (generally looks pale) Results & Data Vital Signs (Past 12 Hours) Vital Signs Temp Pulse Pulse Resp BP Pulse Ox 04/24/19 15:08 36.9 C 91 H 20 114/74 95 04/24/19 11:31 36.8 C 91 H 20 113/74 95 04/24/19 08:00 93 H 04/24/19 07:44 36.8 C 90 20 130/85 93 Laboratory Results WBC 15.63 K/uL (4.8-10.8) H 04/24/19 07:02 RBC 2.89 M/uL (4.2-5.4) L 04/24/19 07:02 Hgb 7.2 g/dL (12.0-16.0) L 04/24/19 07:02 POC Hgb 9.5 g/dl (12.0-16.0) L 04/19/19 16:51 Hct 21.8 % (37-47) L 04/24/19 07:02 POC Hct 28 % (37-47) L 04/19/19 16:51 MCV 75.4 fL (80-100) L 04/24/19 07:02 MCH 24.9 pg (25-34) L 04/24/19 07:02 MCHC 33.0 g/dL (32-36) 04/24/19 07:02 RDW Std Deviation 43.7 fL (36.4-46.3) 04/24/19 07:02 RDW Coeff of Mine 15.8 % (11.5-14.5) H 04/24/19 07:02 Plt Count 482 K/uL (130-400) H 04/24/19 07:02 MPV 9.1 fL (7.4-10.4) 04/24/19 07:02 Immature Gran % (Auto) 8.2 % 04/23/19 07:30 Neut % (Auto) 67.3 % 04/23/19 07:30 Lymph % (Auto) 11.5 % 04/23/19 07:30 Coffee % (Auto) 9.6 % 04/23/19 07:30 Eos % (Auto) 2.9 % 04/23/19 07:30 Baso % (Auto) 0.5 % 04/23/19 07:30 Immature Gran # (Auto) 1.17 K/uL (0.00-0.02) H 04/23/19 07:30 Neut # (Auto) 9.65 K/uL (1.4-6.5) H 04/23/19 07:30 Lymph # (Auto) 1.64 K/uL (1.2-3.4) 04/23/19 07:30 Coffee # (Auto) 1.38 K/uL (0.11-0.59) H 04/23/19 07:30 Eos # (Auto) 0.41 K/uL (0-0.5) 04/23/19 07:30 Baso # (Auto) 0.07 K/uL (0-0.2) 04/23/19 07:30 Absolute Nucleated RBC 0.07 K/uL (0-0) H 04/24/19 07:02 Nucleated RBC % (auto) 0.5 % 04/24/19 07:02 Neutrophils % (Manual) 73.0 % 04/24/19 07:02 Lymphocytes % (Manual) 9.6 % 04/24/19 07:02 Monocytes % (Manual) 2.6 % 04/24/19 07:02 Eosinophils % (Manual) 2.6 % 04/24/19 07:02 Basophils % (Manual) 0.9 % 04/24/19 07:02 Metamyelocytes % (Man) 2.6 % 04/24/19 07:02 Myelocytes % (Man) 8.7 % 04/24/19 07:02 Neutrophils # (Manual) 11.41 K/uL (1.4-6.5) H 04/24/19 07:02 Total Absolute Neuts 11.41 K/uL (1.4-6.5) H 04/24/19 07:02 Lymphocytes # (Manual) 1.50 K/uL (1.2-3.4) 04/24/19 07:02 Total Abs Lymphocytes 1.50 K/uL (1.2-3.4) 04/24/19 07:02 Monocytes # (Manual) 0.41 K/uL (0.11-0.59) 04/24/19 07:02 Eosinophils # (Manual) 0.41 K/uL (0-0.5) 04/24/19 07:02 Basophils # (Manual) 0.14 K/uL (0-0.2) 04/24/19 07:02 Metamyelocytes # (Man) 0.41 K/uL (0-0) H 04/24/19 07:02 Myelocytes # (Manual) 1.36 K/uL (0-0) H 04/24/19 07:02 Toxic Granulation 2+ 04/24/19 07:02 RBC Morphology Unremarkable 04/22/19 07:10 Hypochromasia Present 04/23/19 07:30 PT 11.9 Seconds (9.0-12.0) 04/19/19 16:34 INR 1.2 (0.9-1.1) H 04/19/19 16:34 APTT 34.3 Seconds (21.0-31.0) H 04/19/19 16:34 PTT Ratio 1.3 04/19/19 16:34 POC Sodium 128 mEq/L (135-144) L 04/19/19 16:51 Sodium 142 mmol/L (136-145) 04/24/19 07:02 POC Potassium 3.5 mEq/L (3.3-5.0) 04/19/19 16:51 Potassium 3.3 mmol/L (3.5-5.1) L 04/24/19 07:02 POC Chloride 96 mEq/L (101-112) L 04/19/19 16:51 Chloride 111 mmol/L (98-107) H 04/24/19 07:02 Carbon Dioxide 27 mmol/L (21-32) 04/24/19 07:02 POC Total CO2 21 mEq/l (24-31) L 04/19/19 16:51 Anion Gap 4.0 (3-11) 04/24/19 07:02 POC Anion Gap 16.0 mmol/L (16-25) 04/19/19 16:51 POC BUN 20 mg/dl (7-18) H 04/19/19 16:51 BUN 3 mg/dl (7-18) L 04/24/19 07:02 Creatinine 0.41 mg/dl (0.6-1.2) L 04/24/19 07:02 POC Creatinine 1.3 mg/dl (0.6-1.3) 04/19/19 16:51 Est Cr Clr Drug Dosing 220.4 ml/min 04/24/19 07:02 Est GFR ( Amer) 148.7 04/24/19 07:02 Est GFR (Non-Af Amer) 128.3 04/24/19 07:02 BUN/Creatinine Ratio 6.8 (10-20) L 04/24/19 07:02 Glucose 117 mg/dl (70-99) H 04/24/19 07:02 POC Glucose 147 (70-99) H 04/24/19 11:41 POC Glucose (other) 173 mg/dl (70-99) H 04/19/19 16:51 Estimat Average Glucose 117 mg/dl 04/22/19 03:37 Hemoglobin A1c 5.7 % (4.5-5.6) H 04/22/19 03:37 Lactate 0.8 mmol/L (0.4-2.0) 04/21/19 03:42 Calcium 7.4 mg/dl (8.5-10.1) L 04/24/19 07:02 POC Ioniz Calcium Kourtney 1.08 mmol/l (1.12-1.32) L 04/19/19 16:51 Phosphorus 2.5 mg/dl (2.5-4.9) 04/24/19 07:02 Magnesium 2.2 mg/dl (1.8-2.4) 04/21/19 03:42 Total Bilirubin 0.4 mg/dl (0.2-1) 04/23/19 07:30 AST 19 U/L (15-37) 04/23/19 07:30 ALT 20 U/L (12-78) 04/23/19 07:30 Alkaline Phosphatase 81 U/L (45-117) 04/23/19 07:30 Total Protein 5.3 gm/dl (6.4-8.2) L 04/23/19 07:30 Albumin 1.7 gm/dl (3.4-5.0) L 04/23/19 07:30 Globulin 3.6 gm/dl (2.5-4.0) 04/23/19 07:30 Albumin/Globulin Ratio 0.5 (0.9-2) L 04/23/19 07:30 Random Cortisol 45.39 mcg/dl 04/21/19 03:42 Urine Color Yellow 04/19/19 19:00 Urine Appearance Clear (Clear) 04/19/19 19:00 Urine pH 5.0 (4.5-7.5) 04/19/19 19:00 Ur Specific [place] 1.030 (1.000-1.030) 04/19/19 19:00 Urine Protein Negative (Negative) 04/19/19 19:00 Urine Glucose (UA) Negative (Negative) 04/19/19 19:00 Urine Ketones Negative (Negative) 04/19/19 19:00 Urine Blood 3+ (Negative) H 04/19/19 19:00 Urine Nitrite Negative (Negative) 04/19/19 19:00 Urine Bilirubin Negative (Negative) 04/19/19 19:00 Urine Urobilinogen Negative (Negative) 04/19/19 19:00 Ur Leukocyte Esterase Trace (Negative) H 04/19/19 19:00 Urine RBC >30 /hpf (0-4) H 04/19/19 19:00 Urine WBC 5-10 /hpf (0-5) H 04/19/19 19:00 Ur Epithelial Cells >30 /lpf (0-5) H 04/19/19 19:00 Urine Bacteria 1+ (Negative) H 04/19/19 19:00 Pleural Fluid Source RIGHT LUNG 04/21/19 07:45 Pleural Color STRAW 04/21/19 07:45 Pleural Appearance CLOUDY 04/21/19 07:45 Pleural pH 7.31 (7.3-7.4) 04/21/19 07:45 Pleural WBC 79460 /uL 04/21/19 07:45 Pleural RBC 8000 /uL 04/21/19 07:45 Pleural Polynuclear % 90.0 % 04/21/19 07:45 Pleural Mononuclear % 10.0 % 04/21/19 07:45 Pleural Total Protein 2.6 g/dl 04/21/19 07:45 Pleural LDH 811 U/L 04/21/19 07:45 Pleural Glucose 135 mg/dl 04/21/19 07:45 Pleural Amylase 6 U/L 04/21/19 07:45 Pleural Cholesterol 41 mg/dL 04/21/19 07:45 Nasal Screen MRSA (PCR) Negative (Negative) 04/21/19 02:55 Vancomycin Trough 21.0 mcg/ml (See Comment) 04/24/19 11:21 Blood Type O Positive 04/22/19 16:22 Antibody Screen NEGATIVE 04/22/19 16:22 Crossmatch See Detail 04/19/19 16:39 PG Care Time/CCT Total # of Minutes Spent Total Time Spent with Patient: Total time spent is greater than 50% in coordi nation of care (as documented) at patient's floor/unit and/or counseling patient: Resident Activity Tracking Resident Involvement: Resident Care Provided Care Provided: Adult Hospital Medicine (1) Abdominal pain Abdominal location: unspecified location Qualified Code(s): R10.9 - Unspecified abdominal pain
[2019-04-24 17:33] LABS: Hematocrit (blood only) 21.1 % (37-47); Hemoglobin 6.9 g/dL (12.0-16.0); Mean Corpuscular Hemoglobin 24.8 pg (25-34); Mean Corpuscular Hgb Conc 32.7 g/dL (32-36); Mean Corpuscular Volume 75.9 fL (80-100); Mean Platelet Volume 8.8 fL (7.4-10.4); Nucleated RBC # (auto) 0.13 K/uL (0-0); Nucleated RBC % (auto) 0.7 %; Platelet Count 514 K/uL (130-400); Red Blood Count 2.78 M/uL (4.2-5.4); White Blood Count 19.33 K/uL (4.8-10.8)
[2019-04-24] MEDS ORDERED: SODIUM CHLORIDE 0.9% 250 ML IV PRN (17:36)
[2019-04-24 17:37] LABS: ALC (manual) 1.18 K/uL (1.2-3.4); ANC (manual) 14.92 K/uL (1.4-6.5); Basophils # (manual) 0.17 K/uL (0-0.2); Basophils % (manual) 0.9 %; Eosinophils % (manual) 2.6 %; Lymphocytes # (manual) 1.18 K/uL (1.2-3.4); Lymphocytes % (manual) 6.1 %; Metamyelocytes # (manual) 1.02 K/uL (0-0); Metamyelocytes % (manual) 5.3 %; Monocytes # (manual) 0.17 K/uL (0.11-0.59); Monocytes % (manual) 0.9 %; Myelocytes # (manual) 1.35 K/uL (0-0); Neutrophils # (manual) 14.92 K/uL (1.4-6.5); Neutrophils % (manual) 77.2 %; RBC Morphology Unremarkable
--- NOTE | 2019-04-24 18:42 | Progress Note ---
Date of Service CASTING SORTER Note S: Pt denies pain, SOB, Chills or fever. O: VSS. Improved tachycardia Labs reviewed; HGB; 6.9, Elev WBC A/P 1. Hydropneumothorax- Chest tube removed 2 Ileostomy; stoma functioning. diet advanced to full liquid 3 LAVELL drains: functioning 4. On antibx - Zosyn and Vanco 5. HGB; 6.9 - RBC transfusion in progress 5. Surgery recommends CT scan if WBC remain elevated 6. DVT prophyl. Pt is on SCD; Is surgery ok with starting lovonex on pt? April 24, 2019 Results & Data Vital Signs (Past 12 Hours) Vital Signs Temp Pulse Pulse Resp BP BP Pulse Ox 04/24/19 18:10 36.7 C 108 H 18 120/79 98 04/24/19 17:19 90 04/24/19 15:08 36.9 C 91 H 20 114/74 95 04/24/19 11:31 36.8 C 91 H 20 113/74 95 04/24/19 08:00 93 H 04/24/19 07:44 36.8 C 90 20 130/85 93
[2019-04-24] MEDS: QUETIAPINE FUMARATE 200 MG TAB PO SCH (20:48)
[2019-04-24] MEDS: PARoxetine HCl 20 MG TAB PO SCH (20:49)
[2019-04-24] MEDS: TOPIRAMATE 100 MG TAB PO SCH (20:49)
[2019-04-24 22:44] LABS: Hematocrit (blood only) 23.4 % (37-47)
[2019-04-25] MEDS: INSULIN ASPART 100 UNITS/ML 3 ML PEN SC SCH ×6 (00:06→21:11)
[2019-04-25] MEDS: MoRPHine SULFATE 4 MG/ML 1 ML CARP\\VIAL IV PRN ×4 (03:00→19:07)
[2019-04-25] MEDS: FAMOTIDINE 20 MG in SYRINGE 3 ML IV SCH ×2 (03:07→16:09)
[2019-04-25] MEDS: VANCOMYCIN HCL 1,750 MG in SODIUM CHLORIDE 0.9% 500 ML IV SCH (06:00)
[2019-04-25] MEDS: PIPERACILLIN/TAZOBACTAM 4.5 GM in DEXTROSE 5% 100 ML IV SCH ×3 (06:01→22:06)
[2019-04-25] MEDS: LEVOTHYROXINE SODIUM 75 MCG TABLET PO SCH (06:13)
[2019-04-25] MEDS: ALUMINUM/MAGNESIUM SUSP 30 ML UDC PO SCH ×3 (06:14→17:38)
[2019-04-25 06:57] LABS: Hematocrit (blood only) 24.1 % (37-47); Hemoglobin 8.1 g/dL (12.0-16.0); Mean Corpuscular Hemoglobin 26.1 pg (25-34); Mean Corpuscular Hgb Conc 33.6 g/dL (32-36); Mean Corpuscular Volume 77.7 fL (80-100); Mean Platelet Volume 9.1 fL (7.4-10.4); Nucleated RBC # (auto) 0.16 K/uL (0-0); Nucleated RBC % (auto) 0.9 %; Platelet Count 501 K/uL (130-400); RDW Coefficient of Variation 16.3 % (11.5-14.5); RDW Standard Deviation 45.2 fL (36.4-46.3); White Blood Count 17.48 K/uL (4.8-10.8)
--- NOTE | 2019-04-25 07:18 | Family Medicine Consultation ---
Date of Consultation April 25, 2019 Assessment & Plan (1) Abdominal pain: 39 yo F POD8 from elective laparoscopic hysterectomy with left oophorectomy, POD3 from exploratory laparoscopy with diverting loop ileostomy creation and right thoracostomy tube placement for right hydropneumothorax. - POD9 from hysterectomy and POD4 from ex lap with diverting loop ileostomy - still having pain to palpation but minimal pain at rest - nausea controlled with zofran, hydration - advanced to a liquid diet per surgery DVT PPX: SCDs. Holding off on chemical ppx 2/2 recent surgery. Fluids and nutrition: D/C'd fluids as tolerating oral and +11 L for the stay. Advanced to full liquid diet per surgery. Famotidine 5 mg IV BID. 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 Fungal cultures negative. Awaiting AF[employer] cultures. - given WBC remaining elevated at 17k, consider CT abd/chest/pelv to evaluate for remaining source of infection or increasing antibiotic coverage (7) Depression: (8) Hypothyroid: Supervising Physician Co-Signing Physician Notes Attending attestation Pt seen and examined in concert with Dr. Babb. In agreement with the documented findings as noted in the resident documentation with any exceptions or additions as noted here. Improvement in overall malaise, bloating and fatigue s/p blood transfusion. Decreased sensation of swelling of the b/l LE as well. On examination, S1/S2 nl RRR no MCG. 1+ pitting edema to the midshin bilaterally, improved. CTAB. Abd is mildly tender at areas of left ecchymosis and surgical sites but generally improving overall. Pelvic abscess and bowel perforation following hysterectomy; w/ sepsis s/p ex lap and loop ileostomy - ObGyn primary w/ surgical consultation - cultures negative > 48 hrs. WBC has improved mildly today and clinically improving overall on present regimen. Would consider repeat imaging for source of WBC elevation if increase recurs. Likely can transition to PO abx (augmentin, cipro/flagyl) at time of discharge. Anemia, postoperative s/p 1UPRBC - improved, trend CBC daily Lower extremity edema - still holding IVF, tolerating PO liquids at present R hydropneumothorax s/p chest tube - resolved DMII - continue sliding scale. Else see resident documentation as noted. History of Present Illness Attending Physician: Venkatesh Grullon MD History of Present Illness 39 yo F that we are following for medical management after lap hysterectomy on 04/16 and ex lap + ileostomy on 04/21. Doing well today. Abdominal pain continues to be the same, however feeling marginally better overall. Tolerating full liquid diet. Allergies Allergy/AdvReac Type Severity Reaction Status Date / Time morphine AdvReac Intermediate NAUSEA Verified 04/19/19 20:41 VOMITING Home Medications Home Medications Medication Instructions Recorded Confirmed Type fluticasone propionate [Flonase 1 spray INTRANASAL QAM 04/02/19 04/19/19 History Allergy Relief] levothyroxine 75 mcg PO QAM 04/02/19 04/19/19 History metformin 500 mg PO BID 04/02/19 04/19/19 History omeprazole 40 mg PO QAM 04/02/19 04/19/19 History paroxetine HCl [Paxil] 40 mg PO HS 04/02/19 04/19/19 History quetiapine [Seroquel] 200 mg PO HS 04/02/19 04/19/19 History topiramate 100 mg PO HS 04/02/19 04/19/19 History docusate sodium [Colace] 100 mg PO BID #30 cap 04/16/19 04/19/19 Rx oxycodone-acetaminophen [Percocet] 1 tab PO Q4H PRN #14 tab 04/16/19 04/19/19 Rx acetaminophen 650 mg PO Q6H PRN 04/18/19 04/19/19 History ibuprofen 600 mg PO Q6H PRN 04/18/19 04/19/19 History ondansetron HCl [Zofran] 4 mg PO Q6H #10 tab 04/18/19 04/19/19 Rx oxycodone 5 mg PO Q6H PRN #14 tab 04/18/19 04/19/19 Rx simethicone 80 mg PO PCHS PRN 04/18/19 04/19/19 History Patient History Medical History Depression Diabetes mellitus, type 2 NIDDM GERD (gastroesophageal reflux disease) controlled Hypothyroidism Obesity Surgical History H/O oophorectomy RIGHT History of hysterectomy History of laparotomy OVARIAN CYSTECTOMY Family History Grandmother (Maternal) Family history of diabetes mellitus Grandmother (Paternal) Family history of diabetes mellitus Grandfather (Paternal) Family history of esophageal cancer Social History Preferred Language: Albanian 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: 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 Beliefs That Will Affect Care: None marital status: Current Living Situation: Spouse current occupational status: employed Feels Safe at Home: Yes Safety Concerns: Feels Safe At This Time Smoking Status: Never smoker Second Hand Exposure: No ; Hx Alcohol Use: No Hx Substance Use: No Dental Care, Regularly: Yes Seatbelt Use: always Sunscreen Use: Yes Review of Systems Constitutional: no fever, no chills and no sweats Respiratory: no cough, no pain on inspiration and no pain with cough Cardiovascular: no chest pain and no dyspnea at rest Gastrointestinal: + abdominal pain; no nausea, no vomiting, no constipation and no diarrhea/loose stools Physical Exam Constitutional: + ill appearing, + obese and cooperative; not in distress Respiratory: normal respiratory effort, lungs clear to auscultation Cardiovascular: Rate/Rhythm: regular rate Vessels: no JVD Extremities: + pedal edema and + edema; no calf tenderness leg edema improved today, Gastrointestinal (Abdomen): Inspection/Auscultation: normal bowel sounds and + abdominal surgical incision Percussion/Palpation: + abdomen tender and abdomen soft; no guarding and abdomen not rigid Results & Data Vital Signs (Past 12 Hours) Vital Signs Temp Pulse Pulse Resp BP BP Pulse Ox 04/25/19 03:30 36.9 C 93 H 20 126/81 94 04/25/19 01:03 100 H 04/24/19 23:00 37.1 C 103 H 20 128/80 94 04/24/19 20:40 36.3 C L 90 20 129/84 96 04/24/19 19:40 36.6 C 91 H 22 145/87 H 98 PG Care Time/CCT Total # of Minutes Spent Total Time Spent with Patient: Total time spent is greater than 50% in coordination of care (as documented) at patient's floor/unit and/or counseling patient: Resident Activity Tracking Resident Involvement: Resident Care Provided Care Provided: Adult Hospital Medicine (1) Abdominal pain Abdominal location: unspecified location Qualified Code(s): R10.9 - Unspecified abdominal pain
[2019-04-25 07:27] LABS: ALC (manual) 1.07 K/uL (1.2-3.4); ANC (manual) 13.95 K/uL (1.4-6.5); Basophils # (manual) 0.16 K/uL (0-0.2); Basophils % (manual) 0.9 %; Eosinophils # (manual) 0.16 K/uL (0-0.5); Eosinophils % (manual) 0.9 %; Lymphocytes # (manual) 1.07 K/uL (1.2-3.4); Lymphocytes % (manual) 6.1 %; Metamyelocytes # (manual) 0.31 K/uL (0-0); Metamyelocytes % (manual) 1.8 %; Monocytes # (manual) 0.16 K/uL (0.11-0.59); Monocytes % (manual) 0.9 %; Myelocytes # (manual) 1.68 K/uL (0-0); Myelocytes % (manual) 9.6 %; Neutrophils # (manual) 13.95 K/uL (1.4-6.5); Neutrophils % (manual) 79.8 %; Toxic Granulation 1+
[2019-04-25 07:35] LABS: Albumin Globulin Ratio 0.5 (0.9-2); Albumin Level 1.8 gm/dl (3.4-5.0); BUN Creatinine Ratio 3.6 (10-20); Bilirubin,Total 0.4 mg/dl (0.2-1); Calcium 7.7 mg/dl (8.5-10.1); Creatinine Clr Calc Pharmacy 93.1 ml/min; Est GFR (African American) 84.1; Est GFR (Non-African American) 72.5; Globulin 3.7 gm/dl (2.5-4.0); Potassium 3.3 mmol/L (3.5-5.1); Total Protein 5.5 gm/dl (6.4-8.2)
[2019-04-25] MEDS ORDERED: POTASSIUM CHLORIDE 20 MEQ TABCR PO STA (09:01)
--- NOTE | 2019-04-25 09:08 | Surgery Progress Note ---
Date of Service April 25, 2019 Assessment & Plan (1) Status post exploratory laparotomy: continues to improve clinically. will advance diet WBC decreased today. afebrile. Dr. Zimmerman back tomorrow. Subjective pt seen. feeling well. megan full liquids. hungry for regular food. Physical Exam Physical Exam: alert. nad abd: soft. wound looks good. stoma functioning well. left LAVELL empty. right LAVELL scant but less cloudy than yesterday. Results & Data Vital Signs (Past 12 Hours) Vital Signs Temp Pulse Pulse Resp BP Pulse Ox 04/25/19 07:53 36.8 C 91 H 20 108/68 91 04/25/19 07:18 89 04/25/19 03:30 36.9 C 93 H 20 126/81 94 04/25/19 01:03 100 H 04/24/19 23:00 37.1 C 103 H 20 128/80 94 PG Care Time/CCT Total # of Minutes Spent Total Time Spent with Patient: Total time spent is greater than 50% in coordination of care (as documented) at patient's floor/unit and/or counseling patient:
--- NOTE | 2019-04-25 10:26 | Surgery Progress Note ---
Date of Service April 25, 2019 Assessment & Plan (1) Hydropneumothorax: Chest tube previously removed. (2) S/P ileostomy: (3) Status post exploratory laparotomy: POD#5. Site of bowel perforation was not identified during ex-lap procedure; ileostomy loop was created; ileostomy bag in place and draining bilious fluid. Bag currently being replaced since tear in bag - Patient is clinically improving (afebrile, HR down) - WBC count increased to 19 on 04/24/19 and down to 17 today. - Patient on IV antibiotics (Vancomycin and Zosyn) -Hemoglobin decreased to 6.9 on and Patient was transfused 1 unit. Current H/H 8.1/24.1 -Diet advanced to diabetic diet -Possible removal of pelvic drains on 04/26/[address] Zimmerman returns Subjective Patient seen and examined. Patient feeling well, however tearful, since ostomy bag burst. Tolerating full liquids and desires to advance diet. s/p transfusion of 1 U PRBCs on 04/24/19. Physical Exam Respiratory: normal respiratory effort, lungs clear to auscultation Cardiovascular: RRR, no murmur, no edema Gastrointestinal (Abdomen): Ostomy bag burst with stool by incision site, other leon incision is dry and intact with drain and annalisa in place. Bilateral drains in place with currently minimal drainage (less than 5 ml overnight) Pain in the LLQ near the hematoma. Otherwise abdomen, soft, obese, appropriately tender to palpation. Results & Data Vital Signs (Past 12 Hours) Vital Signs Temp Pulse Pulse Resp BP Pulse Ox 04/25/19 07:53 36.8 C 91 H 20 108/68 91 04/25/19 07:18 89 04/25/19 03:30 36.9 C 93 H 20 126/81 94 04/25/19 01:03 100 H 04/24/19 23:00 37.1 C 103 H 20 128/80 94
[2019-04-25] MEDS ORDERED: VANCOMYCIN TROUGH ONE (13:30)
--- NOTE | 2019-04-25 14:38 | Pharmacy Report ---
Pharmacy Abx Dose Short Note - Date of Service April 25, 2019 - Assessment & Plan Assessment 39 year old F receiving vancomycin and Zosyn for treatment of intra-abdominal infection s/p laparascopic hysterectomy on 04/16 and now s/p exploratory laparotomy for abscess drainage and cleanout on 04/20. -Significant increase in SCr this morning (0.41 -> 0.97) -Patient remains afebrile with persistently elevated WBC (currently 17,480) Day # 7 of Zosyn and day #5 of vancomycin Microbiology: Urine (04/19) - Enterobacter cloacae (sensitive to Zosyn) Blood cultures (04/19) - no growth to date Pleural fluid cultures (04/21) - no growth to date Plan Vancomycin * Trough level of 33 mcg/mL is supratherapeutic * Most likely due to accumulation of previous q8h dosing regimen plus new STEFANY * Will hold vancomycin for now - nurse notified to hold 1400 dose (dose NOT administered) * Goal trough level for intra-abdominal infection : 15 to 20 mcg/mL * Random vanco level ordered for the morning * Will reassess dosing at this time * CMP also ordered for tomorrow - will continue to follow renal function Zosyn * Continue current regimen of 4.5 g IV q8h Pharmacy will continue to follow and will adjust dose/frequency as necessary. Thank you.
[2019-04-25] MEDS: ONDANSETRON INJ 2 MG/ML 2 ML VIAL IV PRN (14:50)
[2019-04-25] MEDS: POTASSIUM CHLORIDE 20 MEQ TABCR PO SCH (20:27)
[2019-04-25] MEDS: TOPIRAMATE 100 MG TAB PO SCH (20:27)
[2019-04-25] MEDS: PARoxetine HCl 20 MG TAB PO SCH (20:27)
[2019-04-25] MEDS: QUETIAPINE FUMARATE 200 MG TAB PO SCH (20:28)
[2019-04-26] MEDS: MoRPHine SULFATE 4 MG/ML 1 ML CARP\\VIAL IV PRN ×5 (00:41→21:10)
[2019-04-26] MEDS: INSULIN ASPART 100 UNITS/ML 3 ML PEN SC SCH ×6 (00:48→22:06)
[2019-04-26] MEDS: ALUMINUM/MAGNESIUM SUSP 30 ML UDC PO SCH ×4 (00:51→17:32)
[2019-04-26] MEDS: VANCOMYCIN HCL 1,750 MG in SODIUM CHLORIDE 0.9% 500 ML IV SCH (03:28)
[2019-04-26] MEDS: FAMOTIDINE 20 MG in SYRINGE 3 ML IV SCH ×2 (03:58→16:45)
[2019-04-26] MEDS: LEVOTHYROXINE SODIUM 75 MCG TABLET PO SCH (05:45)
[2019-04-26] MEDS: PIPERACILLIN/TAZOBACTAM 4.5 GM in DEXTROSE 5% 100 ML IV SCH ×3 (05:46→22:04)
[2019-04-26 06:08] LABS: Hematocrit (blood only) 23.5 % (37-47); Hemoglobin 7.6 g/dL (12.0-16.0); Mean Corpuscular Hemoglobin 25.4 pg (25-34); Mean Corpuscular Hgb Conc 32.3 g/dL (32-36); Mean Corpuscular Volume 78.6 fL (80-100); Mean Platelet Volume 9.1 fL (7.4-10.4); Nucleated RBC # (auto) 0.06 K/uL (0-0); Nucleated RBC % (auto) 0.4 %; Platelet Count 469 K/uL (130-400); RDW Coefficient of Variation 16.6 % (11.5-14.5); RDW Standard Deviation 46.3 fL (36.4-46.3); Red Blood Count 2.99 M/uL (4.2-5.4); White Blood Count 17.01 K/uL (4.8-10.8)
[2019-04-26 06:35] LABS: ALC (manual) 1.62 K/uL (1.2-3.4); ANC (manual) 12.91 K/uL (1.4-6.5); Eosinophils # (manual) 0.73 K/uL (0-0.5); Eosinophils % (manual) 4.3 %; Lymphocytes # (manual) 1.62 K/uL (1.2-3.4); Lymphocytes % (manual) 9.5 %; Metamyelocytes # (manual) 0.73 K/uL (0-0); Metamyelocytes % (manual) 4.3 %; Monocytes # (manual) 0.29 K/uL (0.11-0.59); Monocytes % (manual) 1.7 %; Myelocytes # (manual) 0.73 K/uL (0-0); Myelocytes % (manual) 4.3 %; Neutrophils # (manual) 12.91 K/uL (1.4-6.5); Neutrophils % (manual) 75.9 %; Polychromasia 1+; Toxic Granulation 1+
[2019-04-26 06:43] LABS: Albumin Level 1.8 gm/dl (3.4-5.0); BUN Creatinine Ratio 4.2 (10-20); Calcium 7.8 mg/dl (8.5-10.1); Creatinine Clr Calc Pharmacy 69.5 ml/min; Est GFR (African American) 59.6; Est GFR (Non-African American) 51.4; Potassium 3.7 mmol/L (3.5-5.1)
[2019-04-26 06:46] LABS: Albumin Globulin Ratio 0.5 (0.9-2); Bilirubin,Total 0.4 mg/dl (0.2-1); Total Protein 5.8 gm/dl (6.4-8.2)
[2019-04-26] MEDS: POTASSIUM CHLORIDE 20 MEQ TABCR PO SCH ×2 (08:37→21:13)
--- NOTE | 2019-04-26 09:51 | Pharmacy Report ---
Pharmacy Abx Dose Short Note - Date of Service April 26, 2019 - Assessment & Plan Assessment 04/26 Day # 6/10 of vancomycin, day #8/10 of Zosyn for treatment of intra-abdominal infection. Vancomycin has been on hold d/t supratherapeutic level drawn yesterday and increasing SCr (which has increased further today). Concern for STEFANY secondary to vancomycin, with increased risk from the combination of vancomycin and Zosyn. Urine output decreased from 2900 mL on 04/24 to 1700 mL documented yesterday. No further positive cultures. WBC remains elevated. Random vancomycin level has decreased from 33 -> 23.2 with vancomycin on hold. Patient-specific kinetics with these levels: Gerard 0.022, t1/2 31.5 hrs 04/25 39 year old F receiving vancomycin and Zosyn for treatment of intra-abdominal infection s/p laparascopic hysterectomy on 04/16 and now s/p exploratory laparotomy for abscess drainage and cleanout on 04/20. -Significant increase in SCr this morning (0.41 -> 0.97) -Patient remains afebrile with persistently elevated WBC (currently 17,480) Day # 7 of Zosyn and day #5 of vancomycin Microbiology: Urine (04/19) - Enterobacter cloacae (sensitive to Zosyn) Blood cultures (04/19) - no growth to date Pleural fluid cultures (04/21) - no growth to date Plan Vancomycin * Random level of 23.2 mcg/mL remains supratherapeutic * Will continue to keep vancomycin on hold and recheck random level at 1900 tonight, when level expected to be ~17 * When level < 20, resume cautious dosing of 1250 mg IV q36h if vancomycin to continue. * Consider changing vancomycin to daptomycin in the setting of STEFANY. * Monitor UO and SCr daily Zosyn * Continue 4.5 gm IV q8h for elevated BMI and CrCl > 20 mL/min Pharmacy will continue to follow and will adjust dose/frequency as necessary. Thank you.
--- NOTE | 2019-04-26 11:09 | Family Medicine Progress Note ---
Date of Service April 26, 2019 Assessment & Plan (1) Abdominal pain: 39 yo F POD9 from elective laparoscopic hysterectomy with left oophorectomy complicated by abscess formation, POD4 from exploratory laparoscopy with diverting loop ileostomy creation. - Patient appears to be clinically improving although her WBC count remains elevated; WBC at 17.01 today, down from 19.3 on 04/24. - per surgery: will consider repeat abdominopelvic CT to assess for recurrent/new fluid collection or abscess formation if WBC remains elevated - continue IV vanco/zosyn; patient did experience a rise in creatinine from 0.97 to 1.29; after discussion with pharmacy we will renally dose her antibiotics and closely monitor vanco trough levels and creatinine tomorrow. - pain control with morphine - advanced to a regular (diabetic) diet DVT PPX: SCDs. Holding off on chemical ppx 2/ recent surgery. Fluids and nutrition: IVF discontinued as patient is +11 L and is tolerating PO intake Dispo: Floor CODE STATUS: Full (2) Hydropneumothorax: -s/p chest tube placement and removal - CT surgery following - CXR 04/26 suggests resolution as no evidence of pneumothorax was noted in impression (3) Anemia: - hgb 7.6 today, down from 8.1 on 04/25 - s/p 1 u pRBC transfusion 04/24 - etiology likely post-surgical blood loss/hematoma formation - we would not recommend transfusing again unless hgb drops below 7.0 (4) Status post hysterectomy with oophorectomy: (5) Status post exploratory laparotomy: (6) Abdominal abscess: - s/p ex-lap with lavage and diverting ileostomy formation with bag - high risk for hospital acquired 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 Fungal cultures negative. AFB no growth to date (7) Depression: (8) Hypothyroid: Supervising Physician Co-Signing Physician Notes Patient seen and examined with Dr. Sexton. I agree with their exam findings, review of systems, assessment and plan. I have personally reviewed the lab work and imaging from today. Patient feeling well overall, minimal abdominal pain, tolerating regular food which she is really happy about. Some nausea with eating but no pain. No dyspnea or chest pain. On exam, lungs CTA bilaterally with decreased breath sounds right base, heart regular S1 and S2, no murmurs. Abdomen soft, mild TTP, incision clean, dry, intact, some bruising. LAVELL drains in place, minimal drainage, ostomy functioning well. Legs with mild edema, +1 pitting, no cyanosis or clubbing. No focal neurological deficits. - Sepsis due to intra-abdominal abscess after hysterectomy, POD 4 from ex lap and diverting ileostomy no fever, vitals stable, continue on Vanco and Zosyn, no growth on cultures aware of leukocytosis but reviewing chart her WBC has been elevated the entire stay will just continue to monitor the WBC daily, certainly if she has fever, abdominal pain could consider repeat CT abd/pelvis - Anemia: post operative anemia and also possible due to inflammatory state no signs of active bleeding, Hb down to 7.6, BP stable will repeat tomorrow, only transfuse if < 7 - Acute rise in Cr: unsure of baseline, her Cr was lower last week but she was significantly volume overloaded at that time she is self diuresing, electrolytes are stable would not call this STEFANY at this time, will just continue to monitor closely for rest of details see resident note Subjective No acute events overnight. Eating solids with only minimal nausea. Drinking well. Ambulating well. Making urine. Review of Systems 2 Gastrointestinal: + abdominal pain; no nausea, no vomiting, no constipation and no diarrhea/loose stools Physical Exam Constitutional: WD/WN, vitals as above + overweight Eyes: + anicteric sclerae ENMT: external ear and nose normal, oropharynx normal Neck: trachea midline Respiratory: normal respiratory effort, lungs clear to auscultation Auscultation: no crackles, no rales and no wheezes Cardiovascular: Heart Sounds: normal S1, normal S2 and + murmur (functional ) Extremities: + pedal edema Gastrointestinal (Abdomen): Inspection/Auscultation: + abdominal wall ecchymosis (confined to demarcations placed by Dr. Hutchins on 04/20), + significant pannus, + abdominal surgical scar, + abdominal surgical incision (covered by dry bandages ) and + abdominal surgical drain present ([address] draining some purulent fluid); abdomen not distended Percussion/Palpation: abdomen soft; no guarding Skin: no rashes, warm and dry Neurologic: awake Psychiatric: A+Ox3, euthymic affect Results & Data Vital Signs (Past 12 Hours) Vital Signs Temp Pulse Pulse Resp BP BP Pulse Ox 04/26/19 07:00 36.6 C 87 18 114/73 94 04/26/19 04:00 36.8 C 88 20 122/79 93 04/26/19 02:39 87 Laboratory Results 04/26/19 04/26/19 04/26/19 Range/Units 07:26 05:29 05:29 WBC (4.8-10.8) K/uL RBC (4.2-5.4) M/uL Hgb (12.0-16.0) g/dL Hct (37-47) % MCV (80-100) fL MCH (25-34) pg MCHC (32-36) g/dL RDW Std Deviation (36.4-46.3) fL RDW Coeff of Mine (11.5-14.5) % Plt Count (130-400) K/uL MPV (7.4-10.4) fL Absolute Nucleated RBC (0-0) K/uL Nucleated RBC % (auto) % Neutrophils % (Manual) % Lymphocytes % (Manual) % Monocytes % (Manual) % Eosinophils % (Manual) % Metamyelocytes % (Man) % Myelocytes % (Man) % Neutrophils # (Manual) (1.4-6.5) K/uL Total Absolute Neuts (1.4-6.5) K/uL Lymphocytes # (Manual) (1.2-3.4) K/uL Total Abs Lymphocytes (1.2-3.4) K/uL Monocytes # (Manual) (0.11-0.59) K/uL Eosinophils # (Manual) (0-0.5) K/uL Metamyelocytes # (Man) (0-0) K/uL Myelocytes # (Manual) (0-0) K/uL Toxic Granulation Polychromasia Sodium (136-145) mmol/L Potassium (3.5-5.1) mmol/L Chloride (98-107) mmol/L Carbon Dioxide (21-32) mmol/L Anion Gap (3-11) BUN (7-18) mg/dl Creatinine (0.6-1.2) mg/dl Est Cr Clr Drug Dosing ml/min Est GFR ( Amer) Est GFR (Non-Af Amer) BUN/Creatinine Ratio (10-20) Glucose (70-99) mg/dl POC Glucose 113 H (70-99) Calcium (8.5-10.1) mg/dl Phosphorus 4.2 D (2.5-4.9) mg/dl Total Bilirubin (0.2-1) mg/dl AST (15-37) U/L ALT (12-78) U/L Alkaline Phosphatase (45-117) U/L Total Protein (6.4-8.2) gm/dl Albumin (3.4-5.0) gm/dl Globulin (2.5-4.0) gm/dl Albumin/Globulin Ratio (0.9-2) Vancomycin Trough (See Comment) mcg/ml Random Vancomycin 23.2 mcg/ml 04/26/19 04/26/19 04/26/19 Range/Units 05:29 05:29 03:57 WBC 17.01 H (4.8-10.8) K/uL RBC 2.99 L (4.2-5.4) M/uL Hgb 7.6 L (12.0-16.0) g/dL Hct 23.5 L (37-47) % MCV 78.6 L (80-100) fL MCH 25.4 (25-34) pg MCHC 32.3 (32-36) g/dL RDW Std Deviation 46.3 (36.4-46.3) fL RDW Coeff of Mine 16.6 H (11.5-14.5) % Plt Count 469 H (130-400) K/uL MPV 9.1 (7.4-10.4) fL Absolute Nucleated RBC 0.06 H (0-0) K/uL Nucleated RBC % (auto) 0.4 % Neutrophils % (Manual) 75.9 % Lymphocytes % (Manual) 9.5 % Monocytes % (Manual) 1.7 % Eosinophils % (Manual) 4.3 % Metamyelocytes % (Man) 4.3 % Myelocytes % (Man) 4.3 % Neutrophils # (Manual) 12.91 H (1.4-6.5) K/uL Total Absolute Neuts 12.91 H (1.4-6.5) K/uL Lymphocytes # (Manual) 1.62 (1.2-3.4) K/uL Total Abs Lymphocytes 1.62 (1.2-3.4) K/uL Monocytes # (Manual) 0.29 (0.11-0.59) K/uL Eosinophils # (Manual) 0.73 H (0-0.5) K/uL Metamyelocytes # (Man) 0.73 H (0-0) K/uL Myelocytes # (Manual) 0.73 H (0-0) K/uL Toxic Granulation 1+ Polychromasia 1+ Sodium 143 (136-145) mmol/L Potassium 3.7 (3.5-5.1) mmol/L Chloride 112 H (98-107) mmol/L Carbon Dioxide 25 (21-32) mmol/L Anion Gap 6.0 (3-11) BUN 5 L (7-18) mg/dl Creatinine 1.29 H D (0.6-1.2) mg/dl Est Cr Clr Drug Dosing 69.5 ml/min Est GFR ( Amer) 59.6 Est GFR (Non-Af Amer) 51.4 BUN/Creatinine Ratio 4.2 L (10-20) Glucose 104 H (70-99) mg/dl POC Glucose 125 H (70-99) Calcium 7.8 L (8.5-10.1) mg/dl Phosphorus (2.5-4.9) mg/dl Total Bilirubin 0.4 (0.2-1) mg/dl AST 9 L (15-37) U/L ALT 14 (12-78) U/L Alkaline Phosphatase 67 (45-117) U/L Total Protein 5.8 L (6.4-8.2) gm/dl Albumin 1.8 L (3.4-5.0) gm/dl Globulin 4.0 (2.5-4.0) gm/dl Albumin/Globulin Ratio 0.5 L (0.9-2) Vancomycin Trough (See Comment) mcg/ml Random Vancomycin mcg/ml 04/26/19 04/25/19 04/25/19 Range/Units 00:05 20:15 16:41 WBC (4.8-10.8) K/uL RBC (4.2-5.4) M/uL Hgb (12.0-16.0) g/dL Hct (37-47) % MCV (80-100) fL MCH (25-34) pg MCHC (32-36) g/dL RDW Std Deviation (36.4-46.3) fL RDW Coeff of Mine (11.5-14.5) % Plt Count (130-400) K/uL MPV (7.4-10.4) fL Absolute Nucleated RBC (0-0) K/uL Nucleated RBC % (auto) % Neutrophils % (Manual) % Lymphocytes % (Manual) % Monocytes % (Manual) % Eosinophils % (Manual) % Metamyelocytes % (Man) % Myelocytes % (Man) % Neutrophils # (Manual) (1.4-6.5) K/uL Total Absolute Neuts (1.4-6.5) K/uL Lymphocytes # (Manual) (1.2-3.4) K/uL Total Abs Lymphocytes (1.2-3.4) K/uL Monocytes # (Manual) (0.11-0.59) K/uL Eosinophils # (Manual) (0-0.5) K/uL Metamyelocytes # (Man) (0-0) K/uL Myelocytes # (Manual) (0-0) K/uL Toxic Granulation Polychromasia Sodium (136-145) mmol/L Potassium (3.5-5.1) mmol/L Chloride (98-107) mmol/L Carbon Dioxide (21-32) mmol/L Anion Gap (3-11) BUN (7-18) mg/dl Creatinine (0.6-1.2) mg/dl Est Cr Clr Drug Dosing ml/min Est GFR ( Amer) Est GFR (Non-Af Amer) BUN/Creatinine Ratio (10-20) Glucose (70-99) mg/dl POC Glucose 116 H 121 H 109 H (70-99) Calcium (8.5-10.1) mg/dl Phosphorus (2.5-4.9) mg/dl Total Bilirubin (0.2-1) mg/dl AST (15-37) U/L ALT (12-78) U/L Alkaline Phosphatase (45-117) U/L Total Protein (6.4-8.2) gm/dl Albumin (3.4-5.0) gm/dl Globulin (2.5-4.0) gm/dl Albumin/Globulin Ratio (0.9-2) Vancomycin Trough (See Comment) mcg/ml Random Vancomycin mcg/ml 04/25/19 04/25/19 Range/Units 13:21 11:37 WBC (4.8-10.8) K/uL RBC (4.2-5.4) M/uL Hgb (12.0-16.0) g/dL Hct (37-47) % MCV (80-100) fL MCH (25-34) pg MCHC (32-36) g/dL RDW Std Deviation (36.4-46.3) fL RDW Coeff of Mine (11.5-14.5) % Plt Count (130-400) K/uL MPV (7.4-10.4) fL Absolute Nucleated RBC (0-0) K/uL Nucleated RBC % (auto) % Neutrophils % (Manual) % Lymphocytes % (Manual) % Monocytes % (Manual) % Eosinophils % (Manual) % Metamyelocytes % (Man) % Myelocytes % (Man) % Neutrophils # (Manual) (1.4-6.5) K/uL Total Absolute Neuts (1.4-6.5) K/uL Lymphocytes # (Manual) (1.2-3.4) K/uL Total Abs Lymphocytes (1.2-3.4) K/uL Monocytes # (Manual) (0.11-0.59) K/uL Eosinophils # (Manual) (0-0.5) K/uL Metamyelocytes # (Man) (0-0) K/uL Myelocytes # (Manual) (0-0) K/uL Toxic Granulation Polychromasia Sodium (136-145) mmol/L Potassium (3.5-5.1) mmol/L Chloride (98-107) mmol/L Carbon Dioxide (21-32) mmol/L Anion Gap (3-11) BUN (7-18) mg/dl Creatinine (0.6-1.2) mg/dl Est Cr Clr Drug Dosing ml/min Est GFR ( Amer) Est GFR (Non-Af Amer) BUN/Creatinine Ratio (10-20) Glucose (70-99) mg/dl POC Glucose 139 H (70-99) Calcium (8.5-10.1) mg/dl Phosphorus (2.5-4.9) mg/dl Total Bilirubin (0.2-1) mg/dl AST (15-37) U/L ALT (12-78) U/L Alkaline Phosphatase (45-117) U/L Total Protein (6.4-8.2) gm/dl Albumin (3.4-5.0) gm/dl Globulin (2.5-4.0) gm/dl Albumin/Globulin Ratio (0.9-2) Vancomycin Trough 33.0 (See Comment) mcg/ml Random Vancomycin mcg/ml PG Care Time/CCT Total # of Minutes Spent Total Time Spent with Patient: Total time spent is greater than 50% in coordination of care (as documented) at patient's floor/unit and/or counseling patient: Resident Activity Tracking Resident Involvement: Resident Care Provided Care Provided: Adult Hospital Medicine (1) Abdominal pain Abdominal location: unspecified location Qualified Code(s): R10.9 - Unspecified abdominal pain
--- NOTE | 2019-04-26 12:42 | Progress Note ---
DATE: 04/26/2019 Ms. Woody was seen today on 04/26/2019. She looks quite good from our standpoint. I removed her dressings and her chest tube site is clean. We are going to check a chest x-ray in the department to check an AP and lateral to assess for fluid. Her x-ray yesterday looked quite good. Her leukocytosis is a bit concerning, but at this point we are going to continue to follow along.
--- NOTE | 2019-04-26 13:20 | XRay Report ---
XR chest 2V PA/lateral CLINICAL HISTORY: effusion pleural effusion COMPARISON STUDY: 04/24/2019 FINDINGS: Minimal bibasilar pleural effusions. Mild superimposed bibasilar atelectasis. No significan t pneumothorax. IMPRESSION: 1. Trace bibasilar pleural effusions. 2. Mild bibasilar atelectasis. 3. No evidence for pneumothorax. The above report was generated using voice recognition software. It may contain grammatical, syntax or spelling errors. Electronically signed by: Stanley Zhao M.D. 04/26/2019 1:18 PM
--- NOTE | 2019-04-26 15:14 | Surgery Progress Note ---
Date of Service April 26, 2019 Assessment & Plan (1) Abdominal abscess: POD #5 s/p exploratory laparotomy with formation of ileostomy Stable and clinically well WBC remains elevated. Drains contain material that appears to be more purulent. Drains were not constituted upon my exam today I asked nursing to be sure the drains were constituted to assure proper functioning If WBC remains elevated would repeat CT scan Continue IV antibiotics Subjective POD# 5, s/p exploratory laparotomy with formation of colostomy Feels well Denies nausea and vomiting Ileostomy functioning well Very little abdominal pain Left J-P drain 65 cc yesterday, 10 cc last shift Right J-P drain 25 cc yesterday, 15 cc last shift Physical Exam Gastrointestinal (Abdomen): Inspection/Auscultation: abdomen not distended Percussion/Palpation: + abdomen tender (minimal) and abdomen soft Results & Data Vital Signs (Past 12 Hours) Vital Signs Temp Pulse Resp BP BP Pulse Ox 04/26/19 11:00 36.6 C 78 16 116/68 98 04/26/19 07:00 36.6 C 87 18 114/73 94 04/26/19 04:00 36.8 C 88 20 122/79 93 Laboratory Results 04/26/19 04/26/19 04/26/19 Range/Units 11:17 07:26 05:29 WBC (4.8-10.8) K/uL RBC (4.2-5.4) M/uL Hgb (12.0-16.0) g/dL Hct (37-47) % MCV (80-100) fL MCH (25-34) pg MCHC (32-36) g/dL RDW Std Deviation (36.4-46.3) fL RDW Coeff of Mine (11.5-14.5) % Plt Count (130-400) K/uL MPV (7.4-10.4) fL Absolute Nucleated RBC (0-0) K/uL Nucleated RBC % (auto) % Neutrophils % (Manual) % Lymphocytes % (Manual) % Monocytes % (Manual) % Eosinophils % (Manual) % Metamyelocytes % (Man) % Myelocytes % (Man) % Neutrophils # (Manual) (1.4-6.5) K/uL Total Absolute Neuts (1.4-6.5) K/uL Lymphocytes # (Manual) (1.2-3.4) K/uL Total Abs Lymphocytes (1.2-3.4) K/uL Monocytes # (Manual) (0.11-0.59) K/uL Eosinophils # (Manual) (0-0.5) K/uL Metamyelocytes # (Man) (0-0) K/uL Myelocytes # (Manual) (0-0) K/uL Toxic Granulation Polychromasia Sodium (136-145) mmol/L Potassium (3.5-5.1) mmol/L Chloride (98-107) mmol/L Carbon Dioxide (21-32) mmol/L Anion Gap (3-11) BUN (7-18) mg/dl Creatinine (0.6-1.2) mg/dl Est Cr Clr Drug Dosing ml/min Est GFR ( Amer) Est GFR (Non-Af Amer) BUN/Creatinine Ratio (10-20) Glucose (70-99) mg/dl POC Glucose 129 H 113 H (70-99) Calcium (8.5-10.1) mg/dl Phosphorus 4.2 D (2.5-4.9) mg/dl Total Bilirubin (0.2-1) mg/dl AST (15-37) U/L ALT (12-78) U/L Alkaline Phosphatase (45-117) U/L Total Protein (6.4-8.2) gm/dl Albumin (3.4-5.0) gm/dl Globulin (2.5-4.0) gm/dl Albumin/Globulin Ratio (0.9-2) Random Vancomycin mcg/ml 04/26/19 04/26/19 04/26/19 Range/Units 05:29 05:29 05:29 WBC 17.01 H (4.8-10.8) K/uL RBC 2.99 L (4.2-5.4) M/uL Hgb 7.6 L (12.0-16.0) g/dL Hct 23.5 L (37-47) % MCV 78.6 L (80-100) fL MCH 25.4 (25-34) pg MCHC 32.3 (32-36) g/dL RDW Std Deviation 46.3 (36.4-46.3) fL RDW Coeff of Mine 16.6 H (11.5-14.5) % Plt Count 469 H (130-400) K/uL MPV 9.1 (7.4-10.4) fL Absolute Nucleated RBC 0.06 H (0-0) K/uL Nucleated RBC % (auto) 0.4 % Neutrophils % (Manual) 75.9 % Lymphocytes % (Manual) 9.5 % Monocytes % (Manual) 1.7 % Eosinophils % (Manual) 4.3 % Metamyelocytes % (Man) 4.3 % Myelocytes % (Man) 4.3 % Neutrophils # (Manual) 12.91 H (1.4-6.5) K/uL Total Absolute Neuts 12.91 H (1.4-6.5) K/uL Lymphocytes # (Manual) 1.62 (1.2-3.4) K/uL Total Abs Lymphocytes 1.62 (1.2-3.4) K/uL Monocytes # (Manual) 0.29 (0.11-0.59) K/uL Eosinophils # (Manual) 0.73 H (0-0.5) K/uL Metamyelocytes # (Man) 0.73 H (0-0) K/uL Myelocytes # (Manual) 0.73 H (0-0) K/uL Toxic Granulation 1+ Polychromasia 1+ Sodium 143 (136-145) mmol/L Potassium 3.7 (3.5-5.1) mmol/L Chloride 112 H (98-107) mmol/L Carbon Dioxide 25 (21-32) mmol/L Anion Gap 6.0 (3-11) BUN 5 L (7-18) mg/dl Creatinine 1.29 H D (0.6-1.2) mg/dl Est Cr Clr Drug Dosing 69.5 ml/min Est GFR ( Amer) 59.6 Est GFR (Non-Af Amer) 51.4 BUN/Creatinine Ratio 4.2 L (10-20) Glucose 104 H (70-99) mg/dl POC Glucose (70-99) Calcium 7.8 L (8.5-10.1) mg/dl Phosphorus (2.5-4.9) mg/dl Total Bilirubin 0.4 (0.2-1) mg/dl AST 9 L (15-37) U/L ALT 14 (12-78) U/L Alkaline Phosphatase 67 (45-117) U/L Total Protein 5.8 L (6.4-8.2) gm/dl Albumin 1.8 L (3.4-5.0) gm/dl Globulin 4.0 (2.5-4.0) gm/dl Albumin/Globulin Ratio 0.5 L (0.9-2) Random Vancomycin 23.2 mcg/ml 04/26/19 04/26/19 04/25/19 Range/Units 03:57 00:05 20:15 WBC (4.8-10.8) K/uL RBC (4.2-5.4) M/uL Hgb (12.0-16.0) g/dL Hct (37-47) % MCV (80-100) fL MCH (25-34) pg MCHC (32-36) g/dL RDW Std Deviation (36.4-46.3) fL RDW Coeff of Mine (11.5-14.5) % Plt Count (130-400) K/uL MPV (7.4-10.4) fL Absolute Nucleated RBC (0-0) K/uL Nucleated RBC % (auto) % Neutrophils % (Manual) % Lymphocytes % (Manual) % Monocytes % (Manual) % Eosinophils % (Manual) % Metamyelocytes % (Man) % Myelocytes % (Man) % Neutrophils # (Manual) (1.4-6.5) K/uL Total Absolute Neuts (1.4-6.5) K/uL Lymphocytes # (Manual) (1.2-3.4) K/uL Total Abs Lymphocytes (1.2-3.4) K/uL Monocytes # (Manual) (0.11-0.59) K/uL Eosinophils # (Manual) (0-0.5) K/uL Metamyelocytes # (Man) (0-0) K/uL Myelocytes # (Manual) (0-0) K/uL Toxic Granulation Polychromasia Sodium (136-145) mmol/L Potassium (3.5-5.1) mmol/L Chloride (98-107) mmol/L Carbon Dioxide (21-32) mmol/L Anion Gap (3-11) BUN (7-18) mg/dl Creatinine (0.6-1.2) mg/dl Est Cr Clr Drug Dosing ml/min Est GFR ( Amer) Est GFR (Non-Af Amer) BUN/Creatinine Ratio (10-20) Glucose (70-99) mg/dl POC Glucose 125 H 116 H 121 H (70-99) Calcium (8.5-10.1) mg/dl Phosphorus (2.5-4.9) mg/dl Total Bilirubin (0.2-1) mg/dl AST (15-37) U/L ALT (12-78) U/L Alkaline Phosphatase (45-117) U/L Total Protein (6.4-8.2) gm/dl Albumin (3.4-5.0) gm/dl Globulin (2.5-4.0) gm/dl Albumin/Globulin Ratio (0.9-2) Random Vancomycin mcg/ml 04/25/19 Range/Units 16:41 WBC (4.8-10.8) K/uL RBC (4.2-5.4) M/uL Hgb (12.0-16.0) g/dL Hct (37-47) % MCV (80-100) fL MCH (25-34) pg MCHC (32-36) g/dL RDW Std Deviation (36.4-46.3) fL RDW Coeff of Mine (11.5-14.5) % Plt Count (130-400) K/uL MPV (7.4-10.4) fL Absolute Nucleated RBC (0-0) K/uL Nucleated RBC % (auto) % Neutrophils % (Manual) % Lymphocytes % (Manual) % Monocytes % (Manual) % Eosinophils % (Manual) % Metamyelocytes % (Man) % Myelocytes % (Man) % Neutrophils # (Manual) (1.4-6.5) K/uL Total Absolute Neuts (1.4-6.5) K/uL Lymphocytes # (Manual) (1.2-3.4) K/uL Total Abs Lymphocytes (1.2-3.4) K/uL Monocytes # (Manual) (0.11-0.59) K/uL Eosinophils # (Manual) (0-0.5) K/uL Metamyelocytes # (Man) (0-0) K/uL Myelocytes # (Manual) (0-0) K/uL Toxic Granulation Polychromasia Sodium (136-145) mmol/L Potassium (3.5-5.1) mmol/L Chloride (98-107) mmol/L Carbon Dioxide (21-32) mmol/L Anion Gap (3-11) BUN (7-18) mg/dl Creatinine (0.6-1.2) mg/dl Est Cr Clr Drug Dosing ml/min Est GFR ( Amer) Est GFR (Non-Af Amer) BUN/Creatinine Ratio (10-20) Glucose (70-99) mg/dl POC Glucose 109 H (70-99) Calcium (8.5-10.1) mg/dl Phosphorus (2.5-4.9) mg/dl Total Bilirubin (0.2-1) mg/dl AST (15-37) U/L ALT (12-78) U/L Alkaline Phosphatase (45-117) U/L Total Protein (6.4-8.2) gm/dl Albumin (3.4-5.0) gm/dl Globulin (2.5-4.0) gm/dl Albumin/Globulin Ratio (0.9-2) Random Vancomycin mcg/ml
--- NOTE | 2019-04-26 16:47 | Surgery Progress Note ---
Date of Service April 26, 2019 Assessment & Plan (1) Status post exploratory laparotomy: POD#5. Site of bowel perforation was not identified during ex-lap procedure; ileostomy loop was created; ileostomy bag in place and draining bilious fluid. - Patient is clinically improving (afebrile, HR down) - WBC count increased to 19 on 04/24/19 and down to 17.01 today. Will continue to monitor - Patient on IV antibiotics (Vancomycin and Zosyn) -Hemoglobin decreased to 6.9 on and Patient was transfused 1 unit 04/25/19. Current H/H 7.6/23.5 -Continue diabetic diet -Pelvic drains remain in place until WBC start trending down. If WBC continues to be elevated, possible repeat CT Scan for further evaluation Subjective POD# 5, s/p exploratory laparotomy with formation of colostomy Feels well Denies nausea and vomiting Ileostomy functioning well Very little abdominal pain Tolerating diabetic diet Left J-P drain 10 cc last shift ([id number] Right J-P drain 15 cc last shift ([id number]) Physical Exam Respiratory: normal respiratory effort, lungs clear to auscultation Cardiovascular: Rate/Rhythm: regular rate and regular rhythm Gastrointestinal (Abdomen): Soft, obese, appropriately tender over hematoma sites. Ostomy bag in place with bilious green material. Midline incision: C/D/I. Seferino in place. Bilateral pelvic drains in place with dark red (maroon) fluid. Results & Data Vital Signs (Past 12 Hours) Vital Signs Temp Pulse Pulse Resp BP BP Pulse Ox 04/26/19 15:27 37.0 C 90 18 137/84 95 04/26/19 15:16 89 04/26/19 11:00 36.6 C 78 16 116/68 98 04/26/19 07:00 36.6 C 87 18 114/73 94
[2019-04-26 19:35] LABS: Creatinine Clr Calc Pharmacy 61.8 ml/min; Est GFR (African American) 51.7; Est GFR (Non-African American) 44.6
[2019-04-26] MEDS: PARoxetine HCl 20 MG TAB PO SCH (21:12)
[2019-04-26] MEDS: TOPIRAMATE 100 MG TAB PO SCH (21:13)
[2019-04-26] MEDS: QUETIAPINE FUMARATE 200 MG TAB PO SCH (21:14)
[2019-04-27] MEDS: INSULIN ASPART 100 UNITS/ML 3 ML PEN SC SCH ×6 (00:44→22:29)
[2019-04-27] MEDS: ALUMINUM/MAGNESIUM SUSP 30 ML UDC PO SCH ×4 (00:44→17:27)
[2019-04-27] MEDS: FAMOTIDINE 20 MG in SYRINGE 3 ML IV SCH ×2 (03:47→17:25)
[2019-04-27] MEDS: MoRPHine SULFATE 4 MG/ML 1 ML CARP\\VIAL IV PRN ×4 (05:06→22:08)
[2019-04-27 05:44] LABS: Hematocrit (blood only) 25.2 % (37-47); Hemoglobin 8.2 g/dL (12.0-16.0); Mean Corpuscular Hemoglobin 25.9 pg (25-34); Mean Corpuscular Hgb Conc 32.5 g/dL (32-36); Mean Corpuscular Volume 79.7 fL (80-100); Mean Platelet Volume 8.9 fL (7.4-10.4); Platelet Count 440 K/uL (130-400); RDW Coefficient of Variation 16.7 % (11.5-14.5); RDW Standard Deviation 47.7 fL (36.4-46.3); Red Blood Count 3.16 M/uL (4.2-5.4); White Blood Count 15.81 K/uL (4.8-10.8)
[2019-04-27] MEDS: PIPERACILLIN/TAZOBACTAM 4.5 GM in DEXTROSE 5% 100 ML IV SCH ×3 (05:51→22:09)
[2019-04-27] MEDS: LEVOTHYROXINE SODIUM 75 MCG TABLET PO SCH (05:52)
[2019-04-27 06:03] LABS: Basophils # (auto) 0.07 K/uL (0-0.2); Basophils % (auto) 0.4 %; Eosinophils # (auto) 0.39 K/uL (0-0.5); Eosinophils % (auto) 2.5 %; Immature Granulocytes # (auto) 1.17 K/uL (0.00-0.02); Immature Granulocytes % (auto) 7.4 %; Lymphocytes # (auto) 1.71 K/uL (1.2-3.4); Lymphocytes % (auto) 10.8 %; Monocytes # (auto) 1.05 K/uL (0.11-0.59); Monocytes % (auto) 6.6 %; Neutrophils # (auto) 11.42 K/uL (1.4-6.5); Neutrophils % (auto) 72.3 %; Rouleaux 1+
[2019-04-27 06:17] LABS: BUN Creatinine Ratio 6.7 (10-20); Calcium 8.1 mg/dl (8.5-10.1); Creatinine Clr Calc Pharmacy 61.7 ml/min; Est GFR (African American) 52.1; Potassium 4.1 mmol/L (3.5-5.1)
[2019-04-27 06:18] LABS: Albumin Globulin Ratio 0.5 (0.9-2); Bilirubin,Total 0.3 mg/dl (0.2-1); Globulin 4.2 gm/dl (2.5-4.0); Total Protein 6.2 gm/dl (6.4-8.2)
--- NOTE | 2019-04-27 06:56 | Family Medicine Progress Note ---
Date of Service April 27, 2019 Assessment & Plan (1) Abdominal pain: 39 yo F POD10 from elective laparoscopic hysterectomy with left oophorectomy complicated by abscess formation, POD5 from exploratory laparoscopy with diverting loop ileostomy creation. - Patient appears to be clinically improving although her WBC count remains elevated; WBC at 15 today, down from 17 on 04/25. - IV vancomycin was discontinued today after further rise in serum creatinine (1.44 today, up from 1.29 on 04/26); utility of vanc was questionable as nasal swab neg for MRSA 04/21 - continue IV zosyn - we will order urine Na, urine Cr, UA, and urine eosinophils to assess for AIN secondary to vancomycin use - pain control with morphine - general surgery and OB following -expectant management DVT PPX: SCDs. Holding off on chemical ppx 2/ recent surgery. Fluids and nutrition: Diabetic diet Dispo: Floor CODE STATUS: Full (2) Hydropneumothorax: Mrs. Woody developed a R sided hydropneumothorax during her hospital stay, first visualized on a chest CT on 04/20, prior to her exploratory laparotomy. The etiology of the hydropneumothorax is unknown. A chest tube was placed to drain the fluid by CT Surgery, and was subsequently removed. Fluid analysis was benign (gram stain, fungal, and acid fast bacilli smears and cultures all showing no growth). CXR done on 04/26 suggested resolution as no evidence of pneumothorax was noted in impression. (3) Anemia: Mrs. Woody was found to be anemic during her hospital stay. Review of her records indicate she had some baseline anemia prior to her hysterectomy (Hgbs running 10-10.5). Blood loss during surgery and post-procedure hematoma formation resulted in a further decline. She was transfused 1 unit of pRBCs on 04/24 when her hgb dropped to 6.9. -hgb 8.2 today, up from 7.6 on 04/26 - s/p 1 u pRBC transfusion 04/24 - etiology likely post-surgical blood loss/hematoma formation - we would not recommend transfusing again unless hgb drops below 7.0 (4) Status post hysterectomy with oophorectomy: (5) Status post exploratory laparotomy: (6) Abdominal abscess: - s/p ex-lap with lavage and diverting ileostomy formation with bag - MRSA nasal culture neg 04/21 - IV vancomycin d/c today 04/27; continue IV zosyn - blood cultures drawn 04/19 negative to date - urine culture grew Entrobacter sensitive to zosyn - Pleural fluid from 04/21 grew no organisms on gram stain or culture. Fungal cultures negative. AFB no growth to date (7) Depression: (8) Hypothyroid: Supervising Physician Co-Signing Physician Notes Patient seen and examined with Dr. Sexton. I agree with their exam findings, review of systems, assessment and plan. I have personally reviewed the lab work and imaging from today. patient continues to feel well, no new issues, no increased abdominal pain, tolerating a regular diet, breathing well her ostomy is functioning well, no fever/chills reviewed labs and Cr up to 1.4, electrolytes stable, she continues to make a lot of urine, diuresing on her own On exam, lungs CTA bilaterally with decreased breath sounds right base, heart regular S1 and S2, no murmurs. Abdomen soft, mild TTP, incision clean, dry, intact, some bruising. LAVELL drains in place, minimal drainage, ostomy functioning well. Legs with mild edema, +1 pitting, no cyanosis or clubbing. No focal neurological deficits. - Sepsis due to intra-abdominal abscess after hysterectomy, POD 5 from ex lap and diverting ileostomy no fever, vitals stable, continue on Zosyn, no growth on cultures aware of leukocytosis but reviewing chart her WBC has been elevated the entire stay will just continue to monitor the WBC daily, certainly if she has fever, abdominal pain could consider repeat CT abd/pelvis drains will be managed by surgery - Anemia: post operative anemia and also possible due to inflammatory state no signs of active bleeding, Hb up to above 8, BP stable will repeat tomorrow, only transfuse if < 7 - Acute rise in Cr, possible STEFANY: will check urine sodium, urine creatinine, urine eosinophils feel like it could be AIN due to the Vanco which we stopped she is self diuresing, electrolytes are stable if Cr rises further will consider nephrology consult, for now she is doing well and will jut monitor Cr for rest of details see resident note Subjective No acute events overnight. Feels about the same as yesterday. Continues to tolerate oral intake of solid food with minimal to no nausea. Ambulating well. Tolieting well. Review of Systems Gastrointestinal: + abdominal pain; no nausea, no vomiting, no constipation and no diarrhea/loose stools Physical Exam Constitutional: WD/WN, vitals as above + overweight Eyes: + anicteric sclerae ENMT: external ear and nose normal, oropharynx normal Neck: trachea midline, no thyromegaly trachea midline Respiratory: normal respiratory effort, lungs clear to auscultation Auscultation: no crackles, no rales and no wheezes Cardiovascular: Heart Sounds: normal S1, normal S2 and + murmur (functional ) Gastrointestinal (Abdomen): Inspection/Auscultation: + abdominal wall ecchymosis (confined to demarcations placed by Dr. Hutchins on 04/20), + significant pannus, + abdominal surgical scar, + abdominal surgical incision (without surrounding erythema) and + abdominal surgical drain present ([address] draining little fluid; less purluent today); abdomen not distended Percussion/Palpation: abdomen soft; no guarding Skin: no rashes, warm and dry Neurologic: awake Psychiatric: A+Ox3, euthymic affect Results & Data Vital Signs (Past 12 Hours) Vital Signs Temp Pulse Pulse Resp BP Pulse Ox 04/27/19 00:00 36.8 C 90 20 133/83 94 04/26/19 22:20 88 Laboratory Results 04/27/19 04/27/19 04/27/19 Range/Units 05:19 05:19 03:42 WBC 15.81 H (4.8-10.8) K/uL RBC 3.16 L (4.2-5.4) M/uL Hgb 8.2 L (12.0-16.0) g/dL Hct 25.2 L (37-47) % MCV 79.7 L (80-100) fL MCH 25.9 (25-34) pg MCHC 32.5 (32-36) g/dL RDW Std Deviation 47.7 H (36.4-46.3) fL RDW Coeff of Mine 16.7 H (11.5-14.5) % Plt Count 440 H (130-400) K/uL MPV 8.9 (7.4-10.4) fL Immature Gran % (Auto) 7.4 % Neut % (Auto) 72.3 % Lymph % (Auto) 10.8 % [place] % (Auto) 6.6 % Eos % (Auto) 2.5 % Baso % (Auto) 0.4 % Immature Gran # (Auto) 1.17 H (0.00-0.02) K/uL Neut # (Auto) 11.42 H (1.4-6.5) K/uL Lymph # (Auto) 1.71 (1.2-3.4) K/uL [place] # (Auto) 1.05 H (0.11-0.59) K/uL Eos # (Auto) 0.39 (0-0.5) K/uL Baso # (Auto) 0.07 (0-0.2) K/uL Rouleaux 1+ Sodium 143 (136-145) mmol/L Potassium 4.1 (3.5-5.1) mmol/L Chloride 111 H (98-107) mmol/L Carbon Dioxide 26 (21-32) mmol/L Anion Gap 6.0 (3-11) BUN 10 D (7-18) mg/dl Creatinine 1.44 H (0.6-1.2) mg/dl Est Cr Clr Drug Dosing 61.7 ml/min Est GFR ( Amer) 52.1 Est GFR (Non-Af Amer) 45.0 BUN/Creatinine Ratio 6.7 L (10-20) Glucose 106 H (70-99) mg/dl POC Glucose 114 H (70-99) Calcium 8.1 L (8.5-10.1) mg/dl Phosphorus (2.5-4.9) mg/dl Total Bilirubin 0.3 (0.2-1) mg/dl AST 9 L (15-37) U/L ALT 13 (12-78) U/L Alkaline Phosphatase 67 (45-117) U/L Total Protein 6.2 L (6.4-8.2) gm/dl Albumin 2.0 L (3.4-5.0) gm/dl Globulin 4.2 H (2.5-4.0) gm/dl Albumin/Globulin Ratio 0.5 L (0.9-2) Random Vancomycin mcg/ml 04/27/19 04/26/19 04/26/19 Range/Units 00:09 20:01 18:55 WBC (4.8-10.8) K/uL RBC (4.2-5.4) M/uL Hgb (12.0-16.0) g/dL Hct (37-47) % MCV (80-100) fL MCH (25-34) pg MCHC (32-36) g/dL RDW Std Deviation (36.4-46.3) fL RDW Coeff of Mine (11.5-14.5) % Plt Count (130-400) K/uL MPV (7.4-10.4) fL Immature Gran % (Auto) % Neut % (Auto) % Lymph % (Auto) % [place] % (Auto) % Eos % (Auto) % Baso % (Auto) % Immature Gran # (Auto) (0.00-0.02) K/uL Neut # (Auto) (1.4-6.5) K/uL Lymph # (Auto) (1.2-3.4) K/uL [place] # (Auto) (0.11-0.59) K/uL Eos # (Auto) (0-0.5) K/uL Baso # (Auto) (0-0.2) K/uL Rouleaux Sodium (136-145) mmol/L Potassium (3.5-5.1) mmol/L Chloride (98-107) mmol/L Carbon Dioxide (21-32) mmol/L Anion Gap (3-11) BUN (7-18) mg/dl Creatinine 1.45 H (0.6-1.2) mg/dl Est Cr Clr Drug Dosing 61.8 ml/min Est GFR ( Amer) 51.7 Est GFR (Non-Af Amer) 44.6 BUN/Creatinine Ratio (10-20) Glucose (70-99) mg/dl POC Glucose 120 H 116 H (70-99) Calcium (8.5-10.1) mg/dl Phosphorus (2.5-4.9) mg/dl Total Bilirubin (0.2-1) mg/dl AST (15-37) U/L ALT (12-78) U/L Alkaline Phosphatase (45-117) U/L Total Protein (6.4-8.2) gm/dl Albumin (3.4-5.0) gm/dl Globulin (2.5-4.0) gm/dl Albumin/Globulin Ratio (0.9-2) Random Vancomycin mcg/ml 10/14/19 10/14/19 10/14/19 Range/Units 18:55 16:06 11:17 WBC (4.8-10.8) K/uL RBC (4.2-5.4) M/uL Hgb (12.0-16.0) g/dL Hct (37-47) % MCV (80-100) fL MCH (25-34) pg MCHC (32-36) g/dL RDW Std Deviation (36.4-46.3) fL RDW Coeff of Mine (11.5-14.5) % Plt Count (130-400) K/uL MPV (7.4-10.4) fL Immature Gran % (Auto) % Neut % (Auto) % Lymph % (Auto) % [place] % (Auto) % Eos % (Auto) % Baso % (Auto) % Immature Gran # (Auto) (0.00-0.02) K/uL Neut # (Auto) (1.4-6.5) K/uL Lymph # (Auto) (1.2-3.4) K/uL [place] # (Auto) (0.11-0.59) K/uL Eos # (Auto) (0-0.5) K/uL Baso # (Auto) (0-0.2) K/uL Rouleaux Sodium (136-145) mmol/L Potassium (3.5-5.1) mmol/L Chloride (98-107) mmol/L Carbon Dioxide (21-32) mmol/L Anion Gap (3-11) BUN (7-18) mg/dl Creatinine (0.6-1.2) mg/dl Est Cr Clr Drug Dosing ml/min Est GFR ( Amer) Est GFR (Non-Af Amer) BUN/Creatinine Ratio (10-20) Glucose (70-99) mg/dl POC Glucose 94 129 H (70-99) Calcium (8.5-10.1) mg/dl Phosphorus (2.5-4.9) mg/dl Total Bilirubin (0.2-1) mg/dl AST (15-37) U/L ALT (12-78) U/L Alkaline Phosphatase (45-117) U/L Total Protein (6.4-8.2) gm/dl Albumin (3.4-5.0) gm/dl Globulin (2.5-4.0) gm/dl Albumin/Globulin Ratio (0.9-2) Random Vancomycin 18.0 mcg/ml 04/26/19 04/26/19 Range/Units 07:26 05:29 WBC (4.8-10.8) K/uL RBC (4.2-5.4) M/uL Hgb (12.0-16.0) g/dL Hct (37-47) % MCV (80-100) fL MCH (25-34) pg MCHC (32-36) g/dL RDW Std Deviation (36.4-46.3) fL RDW Coeff of Mine (11.5-14.5) % Plt Count (130-400) K/uL MPV (7.4-10.4) fL Immature Gran % (Auto) % Neut % (Auto) % Lymph % (Auto) % [place] % (Auto) % Eos % (Auto) % Baso % (Auto) % Immature Gran # (Auto) (0.00-0.02) K/uL Neut # (Auto) (1.4-6.5) K/uL Lymph # (Auto) (1.2-3.4) K/uL [place] # (Auto) (0.11-0.59) K/uL Eos # (Auto) (0-0.5) K/uL Baso # (Auto) (0-0.2) K/uL Rouleaux Sodium (136-145) mmol/L Potassium (3.5-5.1) mmol/L Chloride (98-107) mmol/L Carbon Dioxide (21-32) mmol/L Anion Gap (3-11) BUN (7-18) mg/dl Creatinine (0.6-1.2) mg/dl Est Cr Clr Drug Dosing ml/min Est GFR ( Amer) Est GFR (Non-Af Amer) BUN/Creatinine Ratio (10-20) Glucose (70-99) mg/dl POC Glucose 113 H (70-99) Calcium (8.5-10.1) mg/dl Phosphorus 4.2 D (2.5-4.9) mg/dl Total Bilirubin (0.2-1) mg/dl AST (15-37) U/L ALT (12-78) U/L Alkaline Phosphatase (45-117) U/L Total Protein (6.4-8.2) gm/dl Albumin (3.4-5.0) gm/dl Globulin (2.5-4.0) gm/dl Albumin/Globulin Ratio (0.9-2) Random Vancomycin mcg/ml PG Care Time/CCT Total # of Minutes Spent Total Time Spent with Patient: Total time spent is greater than 50% in coordination of care (as documented) at patient's floor/unit and/or counseling patient: Resident Activity Tracking Resident Involvement: Resident Care Provided Care Provided: Adult [facility] (1) Abdominal pain Abdominal location: unspecified location Qualified Code(s): R10.9 - Unspecified abdominal pain
[2019-04-27] MEDS: POTASSIUM CHLORIDE 20 MEQ TABCR PO SCH ×2 (09:02→21:58)
[2019-04-27 13:13] LABS: Appearance Urine Clear (Clear); Bilirubin Urine Negative (Negative); Blood Urine Negative (Negative); Color Urine Yellow; Glucose Urine UA Negative (Negative); Ketones Urine Negative (Negative); Leukocyte Esterase Urine Negative (Negative); Nitrite Urine Negative (Negative); Protein Urine Negative (Negative); Specific Gravity Urine 1.008 (1.000-1.030); Urobilinogen Urine Negative (Negative)
[2019-04-27 13:33] LABS: Creatinine Urine Random 17.4 mg/dl
--- NOTE | 2019-04-27 15:47 | Surgery Progress Note ---
Date of Service April 27, 2019 Assessment & Plan (1) Abdominal abscess: Clinically well GI tract functioning Amount of drainage and LAVELL is decreasing and appears less purulent today White count has decreased compared to yesterday Continue IV antibiotics and expectant management at this time Subjective Postoperative day #6 status post exploratory laparotomy with formation of ileostomy Feels well Eating well Ostomy is functioning well Denies nausea and vomiting Incisional discomfort only Physical Exam Gastrointestinal (Abdomen): Inspection/Auscultation: + abdominal surgical incision (Clean, dry and intact); abdomen not distended Percussion/Palpation: abdomen soft; abdomen nontender Results & Data Vital Signs (Past 12 Hours) Vital Signs Temp Pulse Pulse Resp BP Pulse Ox 04/27/19 15:37 82 04/27/19 08:12 36.7 C 84 18 138/65 96 04/27/19 07:15 81
--- NOTE | 2019-04-27 16:24 | Surgery Progress Note ---
Date of Service April 27, 2019 Assessment & Plan (1) Status post exploratory laparotomy: POD#6. Site of bowel perforation was not identified during ex-lap procedure; ileostomy loop was created; ileostomy bag in place and draining bilious fluid. - Patient is clinically improving (afebrile, HR down) - WBC slowly down trending. Will continue to monitor - Patient on IV antibiotics (Zosyn) -H/H stable -Continue diabetic diet -Pelvic drains remain in place until WBC start trending down. Subjective Postoperative day #6 status post exploratory laparotomy with formation of ileostomy Feels well Eating well Ostomy is functioning well Denies nausea and vomiting Physical Exam Respiratory: normal respiratory effort, lungs clear to auscultation Cardiovascular: Rate/Rhythm: regular rate and regular rhythm Gastrointestinal (Abdomen): Inspection/Auscultation: abdomen normal to in spection Soft, obese, tenderness over hematoma site improving. Incision: C/D/I with annalisa in place. Pelvic drains in place. Ostomy with bilious material Results & Data Vital Signs (Past 12 Hours) Vital Signs Temp Pulse Pulse Resp BP Pulse Ox 04/27/19 16:18 36.4 C L 80 16 139/84 100 04/27/19 15:37 82 04/27/19 08:12 36.7 C 84 18 138/65 96 04/27/19 07:15 81
[2019-04-27] MEDS ORDERED: DEXTROSE 50% 50 ML SYRINGE IV PRN (19:00)
[2019-04-27] MEDS ORDERED: GLUCOSE 40% GEL 15 GM TUBE PO PRN (19:00)
[2019-04-27] MEDS ORDERED: GLUCOSE 10 TABS/TUBE PO PRN (19:00)
[2019-04-27] MEDS ORDERED: GLUCAGON FOR INJ 1 MG VIAL IM PRN (19:00)
[2019-04-27] MEDS ORDERED: CARBOHYDRATES FOR HYPOGLYCEMIA PO PRN (19:00)
[2019-04-27] MEDS: TOPIRAMATE 100 MG TAB PO SCH (21:59)
[2019-04-27] MEDS: QUETIAPINE FUMARATE 200 MG TAB PO SCH (21:59)
[2019-04-27] MEDS: PARoxetine HCl 20 MG TAB PO SCH (21:59)
[2019-04-27] MEDS ORDERED: Nursing to Pharmacy Communication ONE (22:42)
[2019-04-28] MEDS: ALUMINUM/MAGNESIUM SUSP 30 ML UDC PO SCH ×4 (00:10→18:23)
[2019-04-28] MEDS: FAMOTIDINE 20 MG in SYRINGE 3 ML IV SCH ×2 (04:14→15:30)
[2019-04-28] MEDS: LEVOTHYROXINE SODIUM 75 MCG TABLET PO SCH (05:28)
[2019-04-28] MEDS: PIPERACILLIN/TAZOBACTAM 4.5 GM in DEXTROSE 5% 100 ML IV SCH ×3 (05:28→22:30)
[2019-04-28 06:46] LABS: Creatinine Clr Calc Pharmacy 61.7 ml/min; Est GFR (African American) 52.1
--- NOTE | 2019-04-28 07:35 | Surgery Progress Note ---
Date of Service April 28, 2019 Assessment & Plan (1) Abdominal abscess: Status post drainage of intra-abdominal abscess with ileostomy formation Continue IV antibiotics Continue to follow white blood cell count Patient has been afebrile If white blood cell count increases would then consider CT of the abdomen and pelvis for reevaluation Subjective Status post oratory laparotomy and formation of ileostomy Denies pain Tolerating regular diet Ileostomy functioning well Less than 30 cc a shift from LAVELL drains White count pending for today Physical Exam Gastrointestinal (Abdomen): Inspection/Auscultation: + abdominal surgical incision (Clean, dry and intact) and + abdominal surgical drain present (2 JPs in lower quadrants and Marta beneath skin); abdomen not distended Percussion/Palpation: abdomen soft; abdomen nontender Results & Data Vital Signs (Past 12 Hours) Vital Signs Temp Pulse Resp BP Pulse Ox 04/28/19 07:08 36.5 C 77 16 143/89 H 96 04/27/19 23:40 36.6 C 90 18 125/78 95
[2019-04-28] MEDS: MoRPHine SULFATE 4 MG/ML 1 ML CARP\\VIAL IV PRN ×4 (07:40→20:43)
[2019-04-28 08:02] LABS: Basophils # (auto) 0.04 K/uL (0-0.2); Basophils % (auto) 0.3 %; Eosinophils # (auto) 0.35 K/uL (0-0.5); Eosinophils % (auto) 2.4 %; Hematocrit (blood only) 25.1 % (37-47); Hemoglobin 7.8 g/dL (12.0-16.0); Immature Granulocytes # (auto) 0.56 K/uL (0.00-0.02); Immature Granulocytes % (auto) 3.8 %; Lymphocytes # (auto) 1.83 K/uL (1.2-3.4); Lymphocytes % (auto) 12.5 %; Mean Corpuscular Hemoglobin 24.9 pg (25-34); Mean Corpuscular Hgb Conc 31.1 g/dL (32-36); Mean Corpuscular Volume 80.2 fL (80-100); Mean Platelet Volume 9.5 fL (7.4-10.4); Monocytes # (auto) 1.04 K/uL (0.11-0.59); Monocytes % (auto) 7.1 %; Neutrophils # (auto) 10.77 K/uL (1.4-6.5); Neutrophils % (auto) 73.9 %; Nucleated RBC # (auto) 0.02 K/uL (0-0); Nucleated RBC % (auto) 0.1 %; Platelet Count 456 K/uL (130-400); RDW Coefficient of Variation 16.9 % (11.5-14.5); RDW Standard Deviation 48.3 fL (36.4-46.3); Red Blood Count 3.13 M/uL (4.2-5.4); White Blood Count 14.59 K/uL (4.8-10.8)
[2019-04-28 08:16] LABS: BUN Creatinine Ratio 7.3 (10-20); Calcium 8.4 mg/dl (8.5-10.1); Creatinine Clr Calc Pharmacy 60.5 ml/min; Est GFR (African American) 50.9; Est GFR (Non-African American) 43.9; Potassium 4.2 mmol/L (3.5-5.1)
[2019-04-28 08:26] LABS: Hypochromasia Present
--- NOTE | 2019-04-28 08:44 | Family Medicine Progress Note ---
Date of Service April 28, 2019 Assessment & Plan (1) Abdominal pain: 39 yo F POD11 from elective laparoscopic hysterectomy with left oophorectomy complicated by abscess formation, POD6 from exploratory laparoscopy with diverting loop ileostomy creation. - Patient appears to be clinically improving; she is afebrile and her WBC continues to trend down (at 14.5 today down from 15.8 on 04/27) - continue IV zosyn; consider transitioning to PO antibiotics tomorrow 04/29 - pain control with morphine - general surgery and OB following -expectant management DVT PPX: SCDs. Holding off on chemical ppx / recent surgery. Fluids and nutrition: Diabetic diet Dispo: Floor CODE STATUS: Full (2) Hydropneumothorax: Mrs. Woody developed a R sided hydropneumothorax during her hospital stay, first visualized on a chest CT on 04/20, prior to her exploratory laparotomy. The etiology of the hydropneumothorax is unknown. A chest tube was placed to drain the fluid by CT Surgery, and was subsequently removed. Fluid analysis was benign (gram stain, fungal, and acid fast bacilli smears and cultures all showing no growth). CXR done on 04/26 suggested resolution as no evidence of pneumothorax was noted in impression. (3) Elevated serum creatinine: - serum creatinine at 1.47 today despite d/c of IV vancomycin on 04/27. continue to monitor with daily BMPs - Urine Na 46, FeNa of 2.7 suggestive of intrarenal etiology - urine eosinophils appears to have not been obtained; reordered today (4) Anemia: Mrs. Woody was found to be anemic during her hospital stay. Review of her records indicate she had some baseline anemia prior to her hysterectomy (Hgbs running 10-10.5). Blood loss during surgery and post-procedure hematoma formation resulted in a further decline. She was transfused 1 unit of pRBCs on 04/24 when her hgb dropped to 6.9. -hgb 7.8 today, down from 8.2 on 04/27 - s/p 1 u pRBC transfusion 04/24 - etiology likely post-surgical blood loss/hematoma formation - we would not recommend transfusing again unless hgb drops below 7.0 (5) Status post hysterectomy with oophorectomy: (6) Status post exploratory laparotomy: (7) Abdominal abscess: - s/p ex-lap with lavage and diverting ileostomy formation with bag - MRSA nasal culture neg 04/21 - IV vancomycin d/c today 04/27; continue IV zosyn - blood cultures drawn 04/19 negative to date - urine culture grew Entrobacter sensitive to zosyn - Pleural fluid from 04/21 grew no organisms on gram stain or culture. Fungal cultures negative. AFB no growth to date (8) Depression: (9) Hypothyroid: Supervising Physician Co-Signing Physician Notes Patient seen and examined with Dr. Sexton. I agree with their exam findings, review of systems, assessment and plan. I have personally reviewed the lab work and imaging from today. patient is feeling well, drains still in place, eating well, ostomy functioning no chest pain, no dyspnea, no fever/chills WBC coming down slightly, Cr up very slightly to 1.47 from 1.44 reviewed urine studies, calculated FENa is 2.6% suggesting intrinsic etiology, could be AIN patient continues to make a lot of urine, weight going down On exam, lungs CTA bilaterally with decreased breath sounds right base, heart regular S1 and S2, no murmurs. Abdomen soft, mild TTP, incision clean, dry, intact, some bruising. LAVELL drains in place, minimal drainage, ostomy functioning well. Legs with mild edema, +1 pitting, no cyanosis or clubbing. No focal neurological deficits. - Sepsis due to intra-abdominal abscess after hysterectomy, POD 6 from ex lap and diverting ileostomy no fever, vitals stable, continue on Zosyn, no growth on cultures aware of leukocytosis but reviewing chart her WBC has been elevated the entire stay, WBC going down today will just continue to monitor the WBC daily, certainly if she has fever, abdominal pain could consider repeat CT abd/pelvis drains will be managed by surgery, stay in place for now, may go home with them - Anemia: post operative anemia and also possible due to inflammatory state no signs of active bleeding, Hb down slightly today, BP stable will repeat tomorrow, only transfuse if < 7 - Acute rise in Cr, possible STEFANY: FENa is 2.6% suggesting intrinsic etiology, AIN vs ATN would make the most sense feel like it could be AIN due to the Vanco which was stopped 04/26, did not see results for urine eosinophils she is self diuresing, electrolytes are stable if Cr rises further will consider nephrology consult, for now she is doing well and will jut monitor Cr for rest of details see resident note Subjective no acute events overnight. slept better last night when moved to a single room. Continues to tolerate oral intake of solid foods. reports LAVELL drains are uncomfortable Review of Systems 2 Gastrointestinal: + abdominal pain; no nausea, no vomiting, no constipation and no diarrhea/loose stools Physical Exam Constitutional: WD/WN, vitals as above + overweight Eyes: + anicteric sclerae ENMT: external ear and nose normal, oropharynx normal Neck: trachea midline, no thyromegaly trachea midline Respiratory: normal respiratory effort, lungs clear to auscultation Auscultation: no crackles, no rales and no wheezes Cardiovascular: Heart Sounds: normal S1, normal S2 and + murmur (functional ) Extremities: + pedal edema Gastrointestinal (Abdomen): Inspection/Auscultation: + abdominal wall ecchymosis (confined to demarcations placed by Dr. Hutchins on 04/20), + significant pannus, + abdominal surgical scar, + abdominal surgical incision (clean, dry and intact without surrounding erythema) and + abdominal surgical drain present ([address] draining little fluid; less purluent today); abdomen not distended Percussion/Palpation: abdomen soft; no guarding Skin: no rashes, warm and dry Neurologic: awake Psychiatric: A+Ox3, euthymic affect Results & Data Vital Signs (Past 12 Hours) Vital Signs Temp Pulse Resp BP Pulse Ox 04/28/19 07:08 36.5 C 77 16 143/89 H 96 04/27/19 23:40 36.6 C 90 18 125/78 95 Laboratory Results 04/28/19 04/28/19 04/28/19 Range/Units 08:03 05:28 05:28 WBC 14.59 H (4.8-10.8) K/uL RBC 3.13 L (4.2-5.4) M/uL Hgb 7.8 L (12.0-16.0) g/dL Hct 25.1 L (37-47) % MCV 80.2 (80-100) fL MCH 24.9 L (25-34) pg MCHC 31.1 L (32-36) g/dL RDW Std Deviation 48.3 H (36.4-46.3) fL RDW Coeff of Mine 16.9 H (11.5-14.5) % Plt Count 456 H (130-400) K/uL MPV 9.5 (7.4-10.4) fL Immature Gran % (Auto) 3.8 % Neut % (Auto) 73.9 % Lymph % (Auto) 12.5 % [place] % (Auto) 7.1 % Eos % (Auto) 2.4 % Baso % (Auto) 0.3 % Immature Gran # (Auto) 0.56 H (0.00-0.02) K/uL Neut # (Auto) 10.77 H (1.4-6.5) K/uL Lymph # (Auto) 1.83 (1.2-3.4) K/uL [place] # (Auto) 1.04 H (0.11-0.59) K/uL Eos # (Auto) 0.35 (0-0.5) K/uL Baso # (Auto) 0.04 (0-0.2) K/uL Absolute Nucleated RBC 0.02 H (0-0) K/uL Nucleated RBC % (auto) 0.1 % Hypochromasia Present Sodium 141 (136-145) mmol/L Potassium 4.2 (3.5-5.1) mmol/L Chloride 110 H (98-107) mmol/L Carbon Dioxide 26 (21-32) mmol/L Anion Gap 5.0 (3-11) BUN 11 (7-18) mg/dl Creatinine 1.47 H (0.6-1.2) mg/dl Est Cr Clr Drug Dosing 60.5 ml/min Est GFR ( Amer) 50.9 Est GFR (Non-Af Amer) 43.9 BUN/Creatinine Ratio 7.3 L (10-20) Glucose 95 (70-99) mg/dl POC Glucose 101 H (70-99) Calcium 8.4 L (8.5-10.1) mg/dl Urine Color Urine Appearance (Clear) Urine pH (4.5-7.5) Ur Specific [place] (1.000-1.030) Urine Protein (Negative) Urine Glucose (UA) (Negative) Urine Ketones (Negative) Urine Blood (Negative) Urine Nitrite (Negative) Urine Bilirubin (Negative) Urine Urobilinogen (Negative) Ur Leukocyte Esterase (Negative) Ur Random Creatinine mg/dl Ur Random Sodium mmol/L 04/28/19 04/27/19 04/27/19 Range/Units 05:26 20:28 17:07 WBC (4.8-10.8) K/uL RBC (4.2-5.4) M/uL Hgb (12.0-16.0) g/dL Hct (37-47) % MCV (80-100) fL MCH (25-34) pg MCHC (32-36) g/dL RDW Std Deviation (36.4-46.3) fL RDW Coeff of Mine (11.5-14.5) % Plt Count (130-400) K/uL MPV (7.4-10.4) fL Immature Gran % (Auto) % Neut % (Auto) % Lymph % (Auto) % [place] % (Auto) % Eos % (Auto) % Baso % (Auto) % Immature Gran # (Auto) (0.00-0.02) K/uL Neut # (Auto) (1.4-6.5) K/uL Lymph # (Auto) (1.2-3.4) K/uL [place] # (Auto) (0.11-0.59) K/uL Eos # (Auto) (0-0.5) K/uL Baso # (Auto) (0-0.2) K/uL Absolute Nucleated RBC (0-0) K/uL Nucleated RBC % (auto) % Hypochromasia Sodium (136-145) mmol/L Potassium (3.5-5.1) mmol/L Chloride (98-107) mmol/L Carbon Dioxide (21-32) mmol/L Anion Gap (3-11) BUN (7-18) mg/dl Creatinine 1.44 H (0.6-1.2) mg/dl Est Cr Clr Drug Dosing 61.7 ml/min Est GFR ( Amer) 52.1 Est GFR (Non-Af Amer) 45.0 BUN/Creatinine Ratio (10-20) Glucose (70-99) mg/dl POC Glucose 130 H 94 (70-99) Calcium (8.5-10.1) mg/dl Urine Color Urine Appearance (Clear) Urine pH (4.5-7.5) Ur Specific [place] (1.000-1.030) Urine Protein (Negative) Urine Glucose (UA) (Negative) Urine Ketones (Negative) Urine Blood (Negative) Urine Nitrite (Negative) Urine Bilirubin (Negative) Urine Urobilinogen (Negative) Ur Leukocyte Esterase (Negative) Ur Random Creatinine mg/dl Ur Random Sodium mmol/L 04/27/19 04/27/19 04/27/19 Range/Units 13:00 13:00 11:48 WBC (4.8-10.8) K/uL RBC (4.2-5.4) M/uL Hgb (12.0-16.0) g/dL Hct (37-47) % MCV (80-100) fL MCH (25-34) pg MCHC (32-36) g/dL RDW Std Deviation (36.4-46.3) fL RDW Coeff of Mine (11.5-14.5) % Plt Count (130-400) K/uL MPV (7.4-10.4) fL Immature Gran % (Auto) % Neut % (Auto) % Lymph % (Auto) % [place] % (Auto) % Eos % (Auto) % Baso % (Auto) % Immature Gran # (Auto) (0.00-0.02) K/uL Neut # (Auto) (1.4-6.5) K/uL Lymph # (Auto) (1.2-3.4) K/uL [place] # (Auto) (0.11-0.59) K/uL Eos # (Auto) (0-0.5) K/uL Baso # (Auto) (0-0.2) K/uL Absolute Nucleated RBC (0-0) K/uL Nucleated RBC % (auto) % Hypochromasia Sodium (136-145) mmol/L Potassium (3.5-5.1) mmol/L Chloride (98-107) mmol/L Carbon Dioxide (21-32) mmol/L Anion Gap (3-11) BUN (7-18) mg/dl Creatinine (0.6-1.2) mg/dl Est Cr Clr Drug Dosing ml/min Est GFR ( Amer) Est GFR (Non-Af Amer) BUN/Creatinine Ratio (10-20) Glucose (70-99) mg/dl POC Glucose 101 H (70-99) Calcium (8.5-10.1) mg/dl Urine Color Yellow Urine Appearance Clear (Clear) Urine pH 8.0 H (4.5-7.5) Ur Specific [place] 1.008 (1.000-1.030) Urine Protein Negative (Negative) Urine Glucose (UA) Negative (Negative) Urine Ketones Negative (Negative) Urine Blood Negative (Negative) Urine Nitrite Negative (Negative) Urine Bilirubin Negative (Negative) Urine Urobilinogen Negative (Negative) Ur Leukocyte Esterase Negative (Negative) Ur Random Creatinine 17.4 mg/dl Ur Random Sodium 46 mmol/L PG Care Time/CCT Total # of Minutes Spent Total Time Spent with Patient: Total time spent is greater than 50% in coordination of care (as documented) at patient's floor/unit and/or counseling patient: Resident Activity Tracking Resident Involvement: Resident Care Provided Care Provided: Adult Hospital Medicine (1) Abdominal pain Abdominal location: unspecified location Qualified Code(s): R10.9 - Unspecified abdominal pain
[2019-04-28] MEDS: INSULIN ASPART 100 UNITS/ML 3 ML PEN SC SCH ×4 (09:14→21:59)
[2019-04-28] MEDS: POTASSIUM CHLORIDE 20 MEQ TABCR PO SCH ×2 (09:53→20:47)
--- NOTE | 2019-04-28 16:35 | Surgery Progress Note ---
Date of Service April 28, 2019 Assessment & Plan (1) Status post exploratory laparotomy: POD#7. Site of bowel perforation was not identified during ex-lap procedure; ileostomy loop was created; ileostomy bag in place and draining bilious fluid. - Patient is clinically improving (afebrile, HR down) - WBC slowly down trending. Will continue to monitor - Patient on IV antibiotics (Zosyn) -H/H stable -Continue diabetic diet -Pelvic drains remain in place until WBC normalizes. Subjective Patient seen and evaluated. Patient reports soreness around drain sites but overall doing well. Tolerating diabetic diet. Ostomy and pelvic drains in place. Physical Exam Respiratory: normal respiratory effort, lungs clear to auscultation Cardiovascular: Rate/Rhythm: regular rate and regular rhythm Gastrointestinal (Abdomen): Soft, obese, tender to palpation by drain sites. Incision: C/D/I with drain and annalisa in place. Hematoma decreasing around LLQ incision and mid-line vertical incision. Ostomy with bilious material . Pelvic drains in place with minimal serosangious fluid Results & Data Vital Signs (Past 12 Hours) Vital Signs Temp Pulse Resp BP Pulse Ox 04/28/19 15:32 36.5 C 82 18 130/86 97 04/28/19 07:08 36.5 C 77 16 143/89 H 96
[2019-04-28] MEDS: PARoxetine HCl 20 MG TAB PO SCH (20:48)
[2019-04-28] MEDS: QUETIAPINE FUMARATE 200 MG TAB PO SCH (20:48)
[2019-04-28] MEDS: TOPIRAMATE 100 MG TAB PO SCH (20:49)
[2019-04-29] MEDS: ALUMINUM/MAGNESIUM SUSP 30 ML UDC PO SCH ×5 (00:03→23:50)
[2019-04-29] MEDS: MoRPHine SULFATE 4 MG/ML 1 ML CARP\\VIAL IV PRN ×5 (03:49→21:23)
[2019-04-29] MEDS: FAMOTIDINE 20 MG in SYRINGE 3 ML IV SCH (03:50)
[2019-04-29] MEDS: LEVOTHYROXINE SODIUM 75 MCG TABLET PO SCH (06:10)
[2019-04-29] MEDS: PIPERACILLIN/TAZOBACTAM 4.5 GM in DEXTROSE 5% 100 ML IV SCH ×3 (06:10→21:22)
[2019-04-29 06:24] LABS: Basophils # (auto) 0.06 K/uL (0-0.2); Basophils % (auto) 0.5 %; Eosinophils # (auto) 0.36 K/uL (0-0.5); Eosinophils % (auto) 2.8 %; Hematocrit (blood only) 25.3 % (37-47); Hemoglobin 8.2 g/dL (12.0-16.0); Immature Granulocytes # (auto) 0.27 K/uL (0.00-0.02); Immature Granulocytes % (auto) 2.1 %; Lymphocytes # (auto) 1.46 K/uL (1.2-3.4); Lymphocytes % (auto) 11.6 %; Mean Corpuscular Hemoglobin 25.9 pg (25-34); Mean Corpuscular Hgb Conc 32.4 g/dL (32-36); Mean Corpuscular Volume 79.8 fL (80-100); Mean Platelet Volume 9.3 fL (7.4-10.4); Monocytes # (auto) 0.87 K/uL (0.11-0.59); Monocytes % (auto) 6.9 %; Neutrophils # (auto) 9.62 K/uL (1.4-6.5); Neutrophils % (auto) 76.1 %; Platelet Count 434 K/uL (130-400); RDW Coefficient of Variation 16.6 % (11.5-14.5); RDW Standard Deviation 47.9 fL (36.4-46.3); Red Blood Count 3.17 M/uL (4.2-5.4); White Blood Count 12.64 K/uL (4.8-10.8)
[2019-04-29 06:59] LABS: Creatinine Clr Calc Pharmacy 53.9 ml/min; Est GFR (African American) 44.2; Est GFR (Non-African American) 38.2
--- NOTE | 2019-04-29 08:11 | Progress Note ---
DATE: 04/29/2019 Marleny is seen today. She has been afebrile. She has excellent saturations on room air. She is moving air well. Her chest tube site is open to air and is healing nicely. Since she will be in the hospital, we will check another x-ray in the morning, but her white count is down to 12,640 today. Her hemoglobin is also stable at 8.2. ASSESSMENT AND PLAN: Status post chest tube insertion for hydropneumothorax. The patient looks better on a daily basis. She really has no complaints today. We will check a chest x-ray in the morning and if it looks good, we will sign off.
[2019-04-29] MEDS: INSULIN ASPART 100 UNITS/ML 3 ML PEN SC SCH ×4 (08:49→21:42)
[2019-04-29] MEDS: POTASSIUM CHLORIDE 20 MEQ TABCR PO SCH ×2 (08:49→20:34)
--- NOTE | 2019-04-29 09:00 | Surgery Progress Note ---
Date of Service April 29, 2019 Assessment & Plan (1) Status post exploratory laparotomy: POD#8. Site of bowel perforation was not identified during ex-lap procedure; ileostomy loop was created; ileostomy bag in place and draining bilious fluid. - Patient is clinically improving (afebrile, HR down) - WBC slowly down trending (down to 12.64 from 19 over this past weekend). Will continue to monitor - Patient on IV antibiotics (Zosyn) -H/H stable -Continue diabetic diet -Pelvic drains remain in place until WBC normalizes. Subjective POD# 8, s/p exploratory laparotomy with formation of colostomy Feels well Denies nausea and vomiting Ileostomy functioning well Very little abdominal pain Tolerating diabetic diet Left J-P drain 10 cc last shift (613) Right J-P drain 0 cc last shift (613) Physical Exam Respiratory: normal respiratory effort, lungs clear to auscultation Cardiovascular: Rate/Rhythm: regular rate and regular rhythm Gastrointestinal (Abdomen): Soft, obese, tender to palpation by drain sites. Incision: C/D/I with drain and annalisa in place. Hematoma decreasing around LLQ incision and mid-line vertical incision. Ostomy with bilious and more formed material . Pelvic drains in place with minimal serosanguineous fluid Results & Data Vital Signs (Past 12 Hours) Vital Signs Temp Pulse Resp BP Pulse Ox 04/29/19 06:58 36.7 C 76 18 129/83 94 04/28/19 23:24 36.9 C 67 16 114/75 94
[2019-04-29 09:37] LABS: Calcium 8.3 mg/dl (8.5-10.1); Creatinine Clr Calc Pharmacy 52.3 ml/min; Est GFR (African American) 42.7; Est GFR (Non-African American) 36.8; Potassium 4.5 mmol/L (3.5-5.1)
--- NOTE | 2019-04-29 11:03 | Family Medicine Progress Note ---
Date of Service April 29, 2019 Assessment & Plan (1) Abdominal pain: 39 yo F POD12 from elective laparoscopic hysterectomy with left oophorectomy complicated by abscess formation, POD7 from exploratory laparoscopy with diverting loop ileostomy creation. - Patient appears to be clinically improving; she is afebrile and her WBC continues to trend down (at 12 today down from 14 on 04/28) - continue IV zosyn while inpatient with plans to convert to PO Augmentin on discharge - pain control with morphine - general surgery and OB following - patient likely will be discharged with LAVELL drains in place and have them pulled in outpatient surgery clinic - expectant management DVT PPX: SCDs. Holding off on chemical ppx 2/ recent surgery. Famotidine switched from IV to PO for stress ulcer prophylaxis. Fluids and nutrition: Diabetic diet Dispo: Floor CODE STATUS: Full (2) Hydropneumothorax: Mrs. Woody developed a R sided hydropneumothorax during her hospital stay, first visualized on a chest CT on 04/20, prior to her exploratory laparotomy. The etiology of the hydropneumothorax is unknown. A chest tube was placed to drain the fluid by CT Surgery, and was subsequently removed. Fluid analysis was benign (gram stain, fungal, and acid fast bacilli smears and cultures all showing no growth). CXR done on 04/26 suggested resolution as no evidence of pneumothorax was noted in impression. (3) Elevated serum creatinine: - serum creatinine at 1.65 today, up from 1.47 on 04/28 - d/c of IV vancomycin on 04/27 - continue to monitor with daily BMPs - etiology AIN (related to renotoxic meds) vs. ATN (secondary to previous septic state). - Urine Na 46, FeNa of 2.7 suggestive of intrarenal etiology - urine eosinophils appears to have not been obtained despite orders placed on 04/28 and 04/27 - consider nephrology consult (4) Anemia: Mrs. Woody was found to be anemic during her hospital stay. Review of her records indicate she had some baseline anemia prior to her hysterectomy (Hgbs running 10-10.5). Blood loss during surgery and post-procedure hematoma formation resulted in a further decline. She was transfused 1 unit of pRBCs on 04/24 when her hgb dropped to 6.9. -hgb 8.2 today, up from 7.8 on 04/28 - s/p 1 u pRBC transfusion 04/24 - etiology likely post-surgical blood loss/hematoma formation - we would not recommend transfusing again unless hgb drops below 7.0 (5) Status post hysterectomy with oophorectomy: (6) Status post exploratory laparotomy: (7) Abdominal abscess: - s/p ex-lap with lavage and diverting ileostomy formation with bag on 04/20 - MRSA nasal culture neg 04/21 - IV vancomycin d/c 04/27; continue IV zosyn - blood cultures drawn 04/19 negative to date - urine culture grew Entrobacter sensitive to zosyn - Pleural fluid from 04/21 grew no organisms on gram stain or culture. Fungal cultures negative. AFB no growth to date (8) Depression: (9) Hypothyroid: Supervising Physician Co-Signing Physician Notes Patient seen and examined with Dr. Sexton. I agree with their exam findings, review of systems, assessment and plan. I have personally reviewed the lab work and imaging from today. patient doing well, breathing stable, eating great, drinking great, no nausea discussed plan with Dr. Zimmerman, he wants drains in place for several weeks, continue PO antibiotics on discharge discussed case with Dr. Barber, will continue to monitor Cr, most likely [id number] On exam, lungs CTA bilaterally with decreased breath sounds right base, heart regular S1 and S2, no murmurs. Abdomen soft, mild TTP, incision clean, dry, intact, some bruising. LAVELL drains in place, minimal drainage, ostomy functioning well. no edema in legs, no cyanosis or clubbing. No focal neurological deficits. - Sepsis due to intra-abdominal abscess after hysterectomy, POD 7 from ex lap and diverting ileostomy no fever, vitals stable, continue on Zosyn, no growth on cultures WBC down to 12k drains will be managed by surgery, stay in place for now, will definitely go home with them per Dr. Zimmerman - Anemia: post operative anemia and also possible due to inflammatory state no signs of active bleeding, Hb is 8.2, BP stable will repeat tomorrow, only transfuse if < 7 - STEFANY: FENa is 2.6% suggesting intrinsic etiology, AIN vs ATN would make the most sense feel like it could be AIN due to the Vanco which was stopped 04/26 she is self diuresing, electrolytes are stable discussed with accounting clerk, agrees with plan, will consult them if clinical status changes Cr may take some time to return to normal Subjective no acute events overnight. Continues to tolerate oral intake of solid foods. reports LAVELL drains are uncomfortable. continues to make urine Review of Systems Gastrointestinal: + abdominal pain; no nausea, no vomiting, no constipation and no diarrhea/loose stools Physical Exam Constitutional: WD/WN, vitals as above + overweight Eyes: + anicteric sclerae ENMT: external ear and nose normal, oropharynx normal Neck: trachea midline, no thyromegaly trachea midline Respiratory: normal respiratory effort, lungs clear to auscultation Auscultation: no crackles, no rales and no wheezes Cardiovascular: Heart Sounds: normal S1, normal S2 and + murmur (functional ) Extremities: + pedal edema Gastrointestinal (Abdomen): Inspection/Auscultation: + abdominal wall ecchymosis (confined to demarcations placed by Dr. Hutchins on 04/20), + significant pannus, + abdominal surgical scar, + abdominal surgical incision (clean, dry and intact without surrounding erythema) and + abdominal surgical drain present ([address] draining small amount of serosanguinous fluid); abdomen not distended Percussion/Palpation: abdomen soft; no guarding Skin: no rashes, warm and dry Neurologic: awake Psychiatric: A+Ox3, euthymic affect Results & Data Vital Signs (Past 12 Hours) Vital Signs Temp Pulse Resp BP Pulse Ox 04/29/19 06:58 36.7 C 76 18 129/83 94 04/28/19 23:24 36.9 C 67 16 114/75 94 Laboratory Results 04/29/19 04/29/19 04/29/19 Range/Units 07:56 05:25 05:22 WBC 12.64 H (4.8-10.8) K/uL RBC 3.17 L (4.2-5.4) M/uL Hgb 8.2 L (12.0-16.0) g/dL Hct 25.3 L (37-47) % MCV 79.8 L (80-100) fL MCH 25.9 (25-34) pg MCHC 32.4 (32-36) g/dL RDW Std Deviation 47.9 H (36.4-46.3) fL RDW Coeff of Mine 16.6 H (11.5-14.5) % Plt Count 434 H (130-400) K/uL MPV 9.3 (7.4-10.4) fL Immature Gran % (Auto) 2.1 % Neut % (Auto) 76.1 % Lymph % (Auto) 11.6 % [place] % (Auto) 6.9 % Eos % (Auto) 2.8 % Baso % (Auto) 0.5 % Immature Gran # (Auto) 0.27 H (0.00-0.02) K/uL Neut # (Auto) 9.62 H (1.4-6.5) K/uL Lymph # (Auto) 1.46 (1.2-3.4) K/uL [place] # (Auto) 0.87 H (0.11-0.59) K/uL Eos # (Auto) 0.36 (0-0.5) K/uL Baso # (Auto) 0.06 (0-0.2) K/uL Sodium 140 (136-145) mmol/L Potassium 4.5 (3.5-5.1) mmol/L Chloride 108 H (98-107) mmol/L Carbon Dioxide 26 (21-32) mmol/L Anion Gap 6.0 (3-11) BUN 14 (7-18) mg/dl Creatinine 1.70 H (0.6-1.2) mg/dl Est Cr Clr Drug Dosing 52.3 ml/min Est GFR ( Amer) 42.7 Est GFR (Non-Af Amer) 36.8 BUN/Creatinine Ratio 8.0 L (10-20) Glucose 98 (70-99) mg/dl POC Glucose 88 (70-99) Calcium 8.3 L (8.5-10.1) mg/dl 04/29/19 04/28/19 04/28/19 Range/Units 05:22 20:51 17:09 WBC (4.8-10.8) K/uL RBC (4.2-5.4) M/uL Hgb (12.0-16.0) g/dL Hct (37-47) % MCV (80-100) fL MCH (25-34) pg MCHC (32-36) g/dL RDW Std Deviation (36.4-46.3) fL RDW Coeff of Mine (11.5-14.5) % Plt Count (130-400) K/uL MPV (7.4-10.4) fL Immature Gran % (Auto) % Neut % (Auto) % Lymph % (Auto) % [place] % (Auto) % Eos % (Auto) % Baso % (Auto) % Immature Gran # (Auto) (0.00-0.02) K/uL Neut # (Auto) (1.4-6.5) K/uL Lymph # (Auto) (1.2-3.4) K/uL [place] # (Auto) (0.11-0.59) K/uL Eos # (Auto) (0-0.5) K/uL Baso # (Auto) (0-0.2) K/uL Sodium (136-145) mmol/L Potassium (3.5-5.1) mmol/L Chloride (98-107) mmol/L Carbon Dioxide (21-32) mmol/L Anion Gap (3-11) BUN (7-18) mg/dl Creatinine 1.65 H (0.6-1.2) mg/dl Est Cr Clr Drug Dosing 53.9 ml/min Est GFR ( Amer) 44.2 Est GFR (Non-Af Amer) 38.2 BUN/Creatinine Ratio (10-20) Glucose (70-99) mg/dl POC Glucose 105 H 110 H (70-99) Calcium (8.5-10.1) mg/dl 04/28/19 Range/Units 11:58 WBC (4.8-10.8) K/uL RBC (4.2-5.4) M/uL Hgb (12.0-16.0) g/dL Hct (37-47) % MCV (80-100) fL MCH (25-34) pg MCHC (32-36) g/dL RDW Std Deviation (36.4-46.3) fL RDW Coeff of Mine (11.5-14.5) % Plt Count (130-400) K/uL MPV (7.4-10.4) fL Immature Gran % (Auto) % Neut % (Auto) % Lymph % (Auto) % [place] % (Auto) % Eos % (Auto) % Baso % (Auto) % Immature Gran # (Auto) (0.00-0.02) K/uL Neut # (Auto) (1.4-6.5) K/uL Lymph # (Auto) (1.2-3.4) K/uL [place] # (Auto) (0.11-0.59) K/uL Eos # (Auto) (0-0.5) K/uL Baso # (Auto) (0-0.2) K/uL Sodium (136-145) mmol/L Potassium (3.5-5.1) mmol/L Chloride (98-107) mmol/L Carbon Dioxide (21-32) mmol/L Anion Gap (3-11) BUN (7-18) mg/dl Creatinine (0.6-1.2) mg/dl Est Cr Clr Drug Dosing ml/min Est GFR ( Amer) Est GFR (Non-Af Amer) BUN/Creatinine Ratio (10-20) Glucose (70-99) mg/dl POC Glucose 110 H (70-99) Calcium (8.5-10.1) mg/dl PG Care Time/CCT Total # of Minutes Spent Total Time Spent with Patient: Total time spent is greater than 50% in coordination of care (as documented) at patient's floor/unit and/or counseling patient: Resident Activity Tracking Resident Involvement: Resident Care Provided Care Provided: Adult Hospital Medicine (1) Abdominal pain Abdominal location: unspecified location Qualified Code(s): R10.9 - Unspecified abdominal pain
--- NOTE | 2019-04-29 15:29 | Surgery Progress Note ---
Date of Service April 29, 2019 Assessment & Plan (1) Abdominal abscess: Doing well, LAVELL drainage appears more clear, white blood cell count has decreased again today, stable, consider discharge planning with home nursing, will need to maintain drains until has had chance to have a least 10 days of antibiotics Encouraged ambulation Subjective Postoperative day #8, status post expiratory laparotomy with drainage of abscess and formation of ileostomy Feels well Denies nausea and vomiting Very little abdominal pain Tolerating regular diet Ileostomy functioning well Physical Exam Gastrointestinal (Abdomen): Inspection/Auscultation: normal bowel sounds and + abdominal surgical incision (Clean, dry and intact, no surrounding erythema); abdomen not distended Percussion/Palpation: abdomen soft; abdomen nontender Results & Data Vital Signs (Past 12 Hours) Vital Signs Temp Pulse Resp BP Pulse Ox 04/29/19 06:58 36.7 C 76 18 129/83 94 Laboratory Results 04/29/19 04/29/19 04/29/19 Range/Units 12:01 07:56 05:25 WBC (4.8-10.8) K/uL RBC (4.2-5.4) M/uL Hgb (12.0-16.0) g/dL Hct (37-47) % MCV (80-100) fL MCH (25-34) pg MCHC (32-36) g/dL RDW Std Deviation (36.4-46.3) fL RDW Coeff of Mine (11.5-14.5) % Plt Count (130-400) K/uL MPV (7.4-10.4) fL Immature Gran % (Auto) % Neut % (Auto) % Lymph % (Auto) % [place] % (Auto) % Eos % (Auto) % Baso % (Auto) % Immature Gran # (Auto) (0.00-0.02) K/uL Neut # (Auto) (1.4-6.5) K/uL Lymph # (Auto) (1.2-3.4) K/uL Moore # (Auto) (0.11-0.59) K/uL Eos # (Auto) (0-0.5) K/uL Baso # (Auto) (0-0.2) K/uL Sodium 140 (136-145) mmol/L Potassium 4.5 (3.5-5.1) mmol/L Chloride 108 H (98-107) mmol/L Carbon Dioxide 26 (21-32) mmol/L Anion Gap 6.0 (3-11) BUN 14 (7-18) mg/dl Creatinine 1.70 H (0.6-1.2) mg/dl Est Cr Clr Drug Dosing 52.3 ml/min Est GFR ( Amer) 42.7 Est GFR (Non-Af Amer) 36.8 BUN/Creatinine Ratio 8.0 L (10-20) Glucose 98 (70-99) mg/dl POC Glucose 104 H 88 (70-99) Calcium 8.3 L (8.5-10.1) mg/dl 04/29/19 04/29/19 04/28/19 Range/Units 05:22 05:22 20:51 WBC 12.64 H (4.8-10.8) K/uL RBC 3.17 L (4.2-5.4) M/uL Hgb 8.2 L (12.0-16.0) g/dL Hct 25.3 L (37-47) % MCV 79.8 L (80-100) fL MCH 25.9 (25-34) pg MCHC 32.4 (32-36) g/dL RDW Std Deviation 47.9 H (36.4-46.3) fL RDW Coeff of Mine 16.6 H (11.5-14.5) % Plt Count 434 H (130-400) K/uL MPV 9.3 (7.4-10.4) fL Immature Gran % (Auto) 2.1 % Neut % (Auto) 76.1 % Lymph % (Auto) 11.6 % Moore % (Auto) 6.9 % Eos % (Auto) 2.8 % Baso % (Auto) 0.5 % Immature Gran # (Auto) 0.27 H (0.00-0.02) K/uL Neut # (Auto) 9.62 H (1.4-6.5) K/uL Lymph # (Auto) 1.46 (1.2-3.4) K/uL Moore # (Auto) 0.87 H (0.11-0.59) K/uL Eos # (Auto) 0.36 (0-0.5) K/uL Baso # (Auto) 0.06 (0-0.2) K/uL Sodium (136-145) mmol/L Potassium (3.5-5.1) mmol/L Chloride (98-107) mmol/L Carbon Dioxide (21-32) mmol/L Anion Gap (3-11) BUN (7-18) mg/dl Creatinine 1.65 H (0.6-1.2) mg/dl Est Cr Clr Drug Dosing 53.9 ml/min Est GFR ( Amer) 44.2 Est GFR (Non-Af Amer) 38.2 BUN/Creatinine Ratio (10-20) Glucose (70-99) mg/dl POC Glucose 105 H (70-99) Calcium (8.5-10.1) mg/dl 04/28/19 Range/Units 17:09 WBC (4.8-10.8) K/uL RBC (4.2-5.4) M/uL Hgb (12.0-16.0) g/dL Hct (37-47) % MCV (80-100) fL MCH (25-34) pg MCHC (32-36) g/dL RDW Std Deviation (36.4-46.3) fL RDW Coeff of Mine (11.5-14.5) % Plt Count (130-400) K/uL MPV (7.4-10.4) fL Immature Gran % (Auto) % Neut % (Auto) % Lymph % (Auto) % [place] % (Auto) % Eos % (Auto) % Baso % (Auto) % Immature Gran # (Auto) (0.00-0.02) K/uL Neut # (Auto) (1.4-6.5) K/uL Lymph # (Auto) (1.2-3.4) K/uL [place] # (Auto) (0.11-0.59) K/uL Eos # (Auto) (0-0.5) K/uL Baso # (Auto) (0-0.2) K/uL Sodium (136-145) mmol/L Potassium (3.5-5.1) mmol/L Chloride (98-107) mmol/L Carbon Dioxide (21-32) mmol/L Anion Gap (3-11) BUN (7-18) mg/dl Creatinine (0.6-1.2) mg/dl Est Cr Clr Drug Dosing ml/min Est GFR ( Amer) Est GFR (Non-Af Amer) BUN/Creatinine Ratio (10-20) Glucose (70-99) mg/dl POC Glucose 110 H (70-99) Calcium (8.5-10.1) mg/dl
[2019-04-29] MEDS ORDERED: OXYCODONE HCL IR 5 MG TAB (IMMEDIATE RELEASE) PO STA (19:55)
[2019-04-29] MEDS: PARoxetine HCl 20 MG TAB PO SCH (20:35)
[2019-04-29] MEDS: TOPIRAMATE 100 MG TAB PO SCH (20:36)
[2019-04-29] MEDS: FAMOTIDINE 20 MG TAB PO SCH (20:36)
[2019-04-29] MEDS: QUETIAPINE FUMARATE 200 MG TAB PO SCH (20:36)
[2019-04-30] MEDS: MoRPHine SULFATE 4 MG/ML 1 ML CARP\\VIAL IV PRN ×2 (00:33→11:31)
[2019-04-30] MEDS ORDERED: ACETAMINOPHEN 500 MG TAB PO STA (03:03)
[2019-04-30] MEDS: ALUMINUM/MAGNESIUM SUSP 30 ML UDC PO SCH ×3 (05:38→18:27)
[2019-04-30] MEDS: LEVOTHYROXINE SODIUM 75 MCG TABLET PO SCH (05:38)
--- NOTE | 2019-04-30 06:45 | Surgery Progress Note ---
Date of Service April 30, 2019 Assessment & Plan (1) Abdominal abscess: Postoperative day #9 status post oratory laparotomy with formation of ileostomy and drainage of abscess Patient is now developed discomfort in the right upper side and is status post pneumothorax. Pain is exacerbated with deep breathing We will get chest x-ray to evaluate for recurrent pneumothorax. This could also demonstrated an upper abdominal collection and will get a CT scan of the abdomen and pelvis with oral contrast only. Keep n.p.o. for now until results of CT and chest x-ray are available Subjective Postoperative day #9, status post exploratory laparotomy with drainage of abscess and formation of colostomy Last night developed discomfort and points to the upper lateral abdominal wall and lower thoracic area on the right, discomfort is exacerbated by taking a deep breath Does not feel short of breath Denies nausea and vomiting Ileostomy functioning Has not had fever Physical Exam Gastrointestinal (Abdomen): Inspection/Auscultation: + abdominal surgical incision (Clean, dry and intact); abdomen not distended Percussion/Palpation: + abdomen tender (Minimal tenderness in the area as demonstrated by patient in the right upper lateral side) and abdomen soft Ileostomy functioning and is pink and healthy-appearing Results & Data Vital Signs (Past 12 Hours) Vital Signs Temp Pulse Resp BP Pulse Ox 04/29/19 22:56 36.9 C 77 16 126/81 94
[2019-04-30 08:20] LABS: Basophils # (auto) 0.06 K/uL (0-0.2); Basophils % (auto) 0.6 %; Eosinophils # (auto) 0.37 K/uL (0-0.5); Eosinophils % (auto) 3.6 %; Hematocrit (blood only) 26.9 % (37-47); Hemoglobin 8.4 g/dL (12.0-16.0); Immature Granulocytes # (auto) 0.17 K/uL (0.00-0.02); Immature Granulocytes % (auto) 1.6 %; Lymphocytes # (auto) 1.64 K/uL (1.2-3.4); Lymphocytes % (auto) 15.9 %; Mean Corpuscular Hemoglobin 25.4 pg (25-34); Mean Corpuscular Hgb Conc 31.2 g/dL (32-36); Mean Corpuscular Volume 81.3 fL (80-100); Monocytes # (auto) 0.82 K/uL (0.11-0.59); Monocytes % (auto) 7.9 %; Neutrophils # (auto) 7.28 K/uL (1.4-6.5); Neutrophils % (auto) 70.4 %; Platelet Count 395 K/uL (130-400); RDW Coefficient of Variation 16.2 % (11.5-14.5); RDW Standard Deviation 47.9 fL (36.4-46.3); Red Blood Count 3.31 M/uL (4.2-5.4); White Blood Count 10.34 K/uL (4.8-10.8)
[2019-04-30] MEDS: POTASSIUM CHLORIDE 20 MEQ TABCR PO SCH ×2 (08:59→21:32)
[2019-04-30] MEDS: FAMOTIDINE 20 MG TAB PO SCH ×2 (09:00→21:34)
[2019-04-30] MEDS ORDERED: Nursing to Pharmacy Communication ONE ×2 (09:00→13:28)
[2019-04-30] MEDS: INSULIN ASPART 100 UNITS/ML 3 ML PEN SC SCH ×3 (09:03→21:33)
[2019-04-30 09:04] LABS: BUN Creatinine Ratio 8.3 (10-20); Calcium 8.7 mg/dl (8.5-10.1); Creatinine Clr Calc Pharmacy 50.8 ml/min; Est GFR (African American) 41.2; Est GFR (Non-African American) 35.5; Potassium 4.9 mmol/L (3.5-5.1)
--- NOTE | 2019-04-30 09:23 | XRay Report ---
XR chest 1V portable CLINICAL HISTORY: right pleural effusion COMPARISON STUDY: 04/26/2019 FINDINGS: Continued improvement in the appearance of the chest. Improved aeration both lung bases. Mi nimal residual trace pleural fluid left and to a lesser extent right base. No evidence of pneumothora x. IMPRESSION: Improving exam with improved aeration both lung bases. Trace pleural fluid both lung bas es. The above report was generated using voice recognition software. It may contain grammatical, syntax or spelling errors. Electronically signed by: Stanley Zhao M.D. 04/30/2019 9:22 AM
--- NOTE | 2019-04-30 10:22 | Family Medicine Progress Note ---
Date of Service April 30, 2019 Assessment & Plan (1) Status post exploratory laparotomy: 39 yo F POD16 from elective laparoscopic hysterectomy with left oophorectomy complicated by abscess formation, POD10 from exploratory laparoscopy with diverting loop ileostomy creation. - Patient appears to be clinically improving; she is afebrile and her WBC continues to trend down (at 10.34 today down from 12 on 04/29) - Patient reported new right sided chest/upper abdominal pain; Dr. Zimmerman evaluated this morning and ordered repeat Chest Xray (given that patient's prior hydrothorax was on the right side) and A/P CT (to assess for potential new RUQ abdominal abscess collection). CXR 04/30 showed no evidence of pneumothorax and improved aeration in bilateral lung bases with trace b/l pleural effusions. A/P CT showed improvement in known abscesses (smaller in size suggestive of success ful drainage) without new collections - continue IV zosyn while inpatient with plans to convert to PO Augmentin on discharge - pain control with morphine - general surgery and OB following - patient likely will be discharged with LAVELL drains in place and have them pulled in outpatient surgery clinic - expectant management DVT PPX: Heparin 5,000 units, SQ, tid. Famotidine PO for stress ulcer prophyl axis. Fluids and nutrition: Diabetic diet Dispo: Floor CODE STATUS: Full (2) Acute kidney injury: - pre-operative Cr was 0.69 on 04/08/19 - serum creatinine at 1.75 today, up from 1.70 on 04/29 - d/c of IV vancomycin on 04/27 - etiology AIN (related to renotoxic meds) vs. ATN (secondary to previous septic state). - Urine Na 46, FeNa of 2.7 suggestive of intrarenal etiology - urine eosinophils negative 04/29 - urine culture grew Entrobacter sensitive to zosyn (patient on IV zosyn as above) - spoke with nephrology about this patient (no formal consult placed) who encouraged expectant management - continue to monitor with daily BMPs (3) Hydropneumothorax: Mrs. Woody developed a R sided hydropneumothorax during her hospital stay, first visualized on a chest CT on 04/20, prior to her exploratory laparotomy. The etiology of the hydropneumothorax is unknown. A chest tube was placed to drain the fluid by CT Surgery, and was subsequently removed. Fluid analysis was benign (gram stain, fungal, and acid fast bacilli smears and cultures all showing no growth). CXR done on 04/30 suggested resolution as no evidence of pneumothorax was noted in impression. (4) Anemia: Mrs. Woody was found to be anemic during her hospital stay. Review of her records indicate she had some baseline anemia prior to her hysterectomy (Hgbs running 10-10.5). Blood loss during surgery and post-procedure hematoma formation resulted in a further decline. She was transfused 1 unit of pRBCs on 04/24 when her hgb dropped to 6.9. - hgb 8.4 today, up from 8.2 on 04/29 - s/p 1 u pRBC transfusion 04/24 - etiology likely post-surgical blood loss/hematoma formation - we would not recommend transfusing again unless hgb drops below 7.0 (5) Status post hysterectomy with oophorectomy: As above (6) Abdominal abscess: - s/p ex-lap with lavage and diverting ileostomy formation with bag on 04/20 - MRSA nasal culture neg 04/21 - IV vancomycin d/c 04/27; continue IV zosyn; will switch to PO Augmentin at [facility] - blood cultures drawn 04/19 negative to date (7) Hypothyroid: continue home does levothyroxine 75 mcg daily (8) Depression: Supervising Physician Co-Signing Physician Notes Patient seen and examined with Dr. Sexton. I agree with their exam findings, review of systems, assessment and plan. I have personally reviewed the lab work and imaging from today. patient c/o some pain in RLQ, pain around drains prompted general surgery to get a CT with oral contrast, shows improvement overall, decrease in size of the abscess, drains working well CXR with minimal pleural effusion on right, certainly no increase in size breathing well, eating fine, ostomy functioning On exam, lungs CTA bilaterally with decreased breath sounds right base, heart regular S1 and S2, no murmurs. Abdomen soft, mild TTP in RLQ, incision clean, dry, intact, some bruising. LAVELL drains in place, minimal drainage, ostomy functioning well. no edema in legs, no cyanosis or clubbing. No focal neurological deficits. - Sepsis due to intra-abdominal abscess after hysterectomy, POD 8 from ex lap and diverting ileostomy no fever, vitals stable, continue on Zosyn, no growth on cultures WBC down to normal at 10k drains will be managed by surgery, stay in place for now, will definitely go home with them per Dr. Zimmerman CT abd/pelvis with PO contrast only on 04/30 shows overall improvement in abscesses - Anemia: post operative anemia and also possible due to inflammatory state no signs of active bleeding, Hb is 8.4, BP stable will repeat tomorrow, only transfuse if < 7 - STEFANY: FENa is 2.6% suggesting intrinsic etiology, AIN vs ATN would make the most sense feel like it could be AIN due to the Vanco which was stopped 04/26 she is self diuresing, electrolytes continue to be stable discussed with administrative assistant coordinator, agrees with plan, will consult them if clinical status changes Cr may take some time to return to normal it is up very slightly today but really no change Subjective Patient reports new right sided chest / RUQ pain. She continues to urinate and eat well. Review of Systems Cardiovascular: Additional Comments: right sided chest discomfort Gastrointestinal: + abdominal pain; no nausea, no vomiting, no constipation and no diarrhea/loose stools Physical Exam Constitutional: WD/WN, vitals as above + overweight Eyes: + anicteric sclerae ENMT: external ear and nose normal, oropharynx normal Neck: trachea midline Respiratory: normal respiratory effort, lungs clear to auscultation Auscultation: no crackles, no rales and no wheezes Breath sounds appreciated throughout all lung gale on R and L side Cardiovascular: Heart Sounds: normal S1 and normal S2 Gastrointestinal (Abdomen): Inspection/Auscultation: + abdominal wall ecchymosis (fading since onset), + significant pannus, + abdominal surgical scar, + abdominal surgical incision (clean, dry and intact without surrounding erythema; overlying bandages) and + abdominal surgical drain present ([address] draining small amount of serosanguinous fluid); abdomen not distended Percussion/Palpation: abdomen soft; abdomen nontender (RUQ only) and no guarding Skin: no rashes, warm and dry Neurologic: awake Psychiatric: A+Ox3, euthymic affect Results & Data Vital Signs (Past 12 Hours) Vital Signs Temp Pulse Resp BP Pulse Ox 04/30/19 07:01 36.7 C 73 16 113/74 94 04/29/19 22:56 36.9 C 77 16 126/81 94 Laboratory Results 04/30/19 04/30/19 04/30/19 Range/Units 08:06 08:06 08:03 WBC 10.34 (4.8-10.8) K/uL RBC 3.31 L (4.2-5.4) M/uL Hgb 8.4 L (12.0-16.0) g/dL Hct 26.9 L (37-47) % MCV 81.3 (80-100) fL MCH 25.4 (25-34) pg MCHC 31.2 L (32-36) g/dL RDW Std Deviation 47.9 H (36.4-46.3) fL RDW Coeff of Mine 16.2 H (11.5-14.5) % Plt Count 395 (130-400) K/uL MPV 9.0 (7.4-10.4) fL Immature Gran % (Auto) 1.6 % Neut % (Auto) 70.4 % Lymph % (Auto) 15.9 % [place] % (Auto) 7.9 % Eos % (Auto) 3.6 % Baso % (Auto) 0.6 % Immature Gran # (Auto) 0.17 H (0.00-0.02) K/uL Neut # (Auto) 7.28 H (1.4-6.5) K/uL Lymph # (Auto) 1.64 (1.2-3.4) K/uL [place] # (Auto) 0.82 H (0.11-0.59) K/uL Eos # (Auto) 0.37 (0-0.5) K/uL Baso # (Auto) 0.06 (0-0.2) K/uL Sodium 138 (136-145) mmol/L Potassium 4.9 (3.5-5.1) mmol/L Chloride 107 (98-107) mmol/L Carbon Dioxide 26 (21-32) mmol/L Anion Gap 5.0 (3-11) BUN 14 (7-18) mg/dl Creatinine 1.75 H (0.6-1.2) mg/dl Est Cr Clr Drug Dosing 50.8 ml/min Est GFR ( Amer) 41.2 Est GFR (Non-Af Amer) 35.5 BUN/Creatinine Ratio 8.3 L (10-20) Glucose 85 (70-99) mg/dl POC Glucose 87 (70-99) Calcium 8.7 (8.5-10.1) mg/dl 04/29/19 04/29/19 04/29/19 Range/Units 20:26 17:11 12:01 WBC (4.8-10.8) K/uL RBC (4.2-5.4) M/uL Hgb (12.0-16.0) g/dL Hct (37-47) % MCV (80-100) fL MCH (25-34) pg MCHC (32-36) g/dL RDW Std Deviation (36.4-46.3) fL RDW Coeff of Mine (11.5-14.5) % Plt Count (130-400) K/uL MPV (7.4-10.4) fL Immature Gran % (Auto) % Neut % (Auto) % Lymph % (Auto) % [place] % (Auto) % Eos % (Auto) % Baso % (Auto) % Immature Gran # (Auto) (0.00-0.02) K/uL Neut # (Auto) (1.4-6.5) K/uL Lymph # (Auto) (1.2-3.4) K/uL [place] # (Auto) (0.11-0.59) K/uL Eos # (Auto) (0-0.5) K/uL Baso # (Auto) (0-0.2) K/uL Sodium (136-145) mmol/L Potassium (3.5-5.1) mmol/L Chloride (98-107) mmol/L Carbon Dioxide (21-32) mmol/L Anion Gap (3-11) BUN (7-18) mg/dl Creatinine (0.6-1.2) mg/dl Est Cr Clr Drug Dosing ml/min Est GFR ( Amer) Est GFR (Non-Af Amer) BUN/Creatinine Ratio (10-20) Glucose (70-99) mg/dl POC Glucose 109 H 84 104 H (70-99) Calcium (8.5-10.1) mg/dl PG Care Time/CCT Total # of Minutes Spent Total Time Spent with Patient: Total time spent is greater than 50% in coordination of care (as documented) at patient's floor/unit and/or counseling patient: Resident Activity Tracking Resident Involvement: Resident Care Provided Care Provided: Adult Hospital Medicine
[2019-04-30] MEDS ORDERED: INSULIN ASPART 100 UNITS/ML 3 ML PEN SC SCH (12:00)
--- NOTE | 2019-04-30 12:48 | XRay Report ---
XR chest 2V PA/lateral CLINICAL HISTORY: Pain with inspiration. History of pneumonia. COMPARISON STUDY: Chest radiograph April 30, 2019 at 8:34 AM. FINDINGS: There is no pneumothorax. No consolidation is noted. There is no evidence for pulmonary brandon ma. There is a trace right pleural effusion. Mild left basilar opacity favors atelectasis. Cardiomedi astinal silhouette is unremarkable. IMPRESSION: 1. Trace right pleural effusion. 2. Mild left basilar opacity suggestive of atelectasis Electronically signed by: Vince Luo M.D. 04/30/2019 12:47 PM
--- NOTE | 2019-04-30 13:16 | CT Scan Report ---
CT OF THE ABDOMEN AND PELVIS WITH ORAL CONTRAST CLINICAL HISTORY: Right upper quadrant abdominal pain. Lower chest pain. COMPARISON STUDY: CT of the abdomen and pelvis April 20, 2019. TECHNIQUE: Axial images of the abdomen and pelvis were obtained without IV contrast. Oral contrast wa s administered. Automated exposure control was utilized for the study. A dose lowering technique was utilized adhering to the principles of ALARA. FINDINGS: Imaged portions of the lower chest demonstrate a small right pleural effusion which is priya lar to CT of April 20, 2019. No pneumothorax is shown within the lower chest. Right basilar opacity favors atelectasis. Pneumoperitoneum has resolved. Evaluation of the abdomen and pelvis is suboptimal on this unenhanced examination. The liver is mildly enlarged. This is unchanged. Unenhanced images o f the spleen, right adrenal gland, right kidney and pancreas are unremarkable. A 3.2 cm low-attenuati on left adrenal lesion is unchanged. This is indeterminate. There is a cyst within the lower pole of the left kidney. There is no hydronephrosis. There is no biliary or pancreatic ductal dilatation. The re is no evidence for a bowel obstruction. The appendix is not visualized. Interval creation of a rig ht lower quadrant ileostomy is noted. Multiple surgical drains are in place. Significant improvement since CT of April 20, 2019 is noted. The large pelvic fluid collections are no longer identified. A small left lower quadrant anterior abdominal fluid collection measures 4.4 x 3.1 cm. This contains fl uid and gas. This has slightly decreased in size since prior exam when it measured 6.1 x 3.7 cm. No a dditional fluid collections are present. Mesenteric infiltration is improved. Bowel wall thickening h as improved. No new fluid collections are present. Trace gas within the operative bed is postsurgical . There are no suspicious osseous lesions. IMPRESSION: 1. Status post creation of a right lower quadrant ileostomy and drainage of multiple abscesses. Signi ficant improvement since CT of April 20, 2019. 4.4 x 3.1 cm left lower quadrant abdominal anterior f luid collection which has slightly decreased in size. This favors an abscess. No additional fluid col lections. No bowel obstruction. Mesenteric and operative bed infiltration. Interval decrease in small bowel wall thickening. 2. Small right pleural effusion which is similar to prior exam. No pneumothorax identified. Right bas ilar opacity which favors atelectasis. Electronically signed by: Vince Luo M.D. 04/30/2019 1:15 PM
--- NOTE | 2019-04-30 13:44 | Progress Note ---
DATE: 04/30/2019 Ms. Woody was seen today. Her white count is down to normal now. Her x-ray looked quite good where her CT scan shows a small homogenous effusion on the right. We have already assessed this fluid and it is benign. It is probably reactive. She has no evidence of pneumothorax. I would not address this.
[2019-04-30] MEDS ORDERED: PIPERACILL/TAZOBAC CONSULT ACTIVE PRN (13:57)
[2019-04-30] MEDS: HEPARIN SOD 5,000 UNIT/0.5 ML VIAL SQ SCH ×2 (14:30→21:35)
[2019-04-30] MEDS: PIPERACILLIN/TAZOBACTAM 4.5 GM in DEXTROSE 5% 100 ML IV SCH ×2 (14:30→21:36)
[2019-04-30] MEDS: ACETAMINOPHEN 325 MG TAB PO PRN ×2 (17:13→21:30)
[2019-04-30] MEDS: OXYCODONE HCL IR 5 MG TAB (IMMEDIATE RELEASE) PO PRN ×2 (17:13→21:30)
--- NOTE | 2019-04-30 19:03 | Surgery Progress Note ---
Date of Service April 30, 2019 Assessment & Plan (1) Status post exploratory laparotomy: POD#9. Site of bowel perforation was not identified during ex-lap procedure; ileostomy loop was created; ileostomy bag in place and draining bilious fluid. - Patient is clinically improving (afebrile, HR down) - WBC slowly down trending (down to 10.3 from 12.64). Will continue to monitor - Patient on IV antibiotics (Zosyn). Plan is to switch to oral antibiotics on discharge. -H/H stable -Continue diabetic diet -Pelvic drains remain in place. Patient to go home with drains. -Right sided pain (resolved); CXR: There is no pneumothorax. No consolidation is noted. There is no evidence for pulmonary edema. There is a trace right pleural effusion. Mild left basilar opacity favors atelectasis. Cardiomediastinal silhouette is unremarkable. CT Abd/Pelvis: IMPRESSION: 1. Status post creation of a right lower quadrant ileostomy and drainage of multiple abscesses. Significant improvement since CT of April 20, 2019. 4.4 x 3.1 cm left lower quadrant abdominal anterior fluid collection which has sli ghtly decreased in size. This favors an abscess. No additional fluid collections. No bowel obstruction. Mesenteric and operative bed infiltration. Interval decrease in small bowel wall thickening. 2. Small right pleural effusion which is similar to prior exam. No pneumothorax identified. Right basilar opacity which favors atelectasis. Subjective POD#9. Site of bowel perforation was not identified during ex-lap procedure; ileostomy loop was created; ileostomy bag in place and draining bilious fluid. -Overnight, Patient with right sided pain which has resolved. CXR and CT Abd/Pelvis was ordered for further evaluation - Patient is clinically improving (afebrile, HR down) - WBC slowly down trending (down to 10.34). Will continue to monitor - Patient on IV antibiotics (Zosyn) -H/H stable -Continue diabetic diet -Pelvic drains remain in place. Plan is for Pt to be discharge home with drains in place. Physical Exam Respiratory: normal respiratory effort, lungs clear to auscultation Cardiovascular: Rate/Rhythm: regular rate and regular rhythm Gastrointestinal (Abdomen): Soft, obese, tender to palpation by drain sites. Incision: C/D/I with drain and annalisa in place. Hematoma decreasing around LLQ incision and mid-line vertical incision. Ostomy with bilious and more formed material . Pelvic drains in place with minimal serosanguineous fluid Results & Data Vital Signs (Past 12 Hours) Vital Signs Temp Pulse Resp BP Pulse Ox 04/30/19 15:52 36.8 C 98 H 16 119/83 97
[2019-04-30] MEDS: PARoxetine HCl 20 MG TAB PO SCH (21:34)
[2019-04-30] MEDS: QUETIAPINE FUMARATE 200 MG TAB PO SCH (21:35)
[2019-04-30] MEDS: TOPIRAMATE 100 MG TAB PO SCH (21:35)
[2019-05-01] MEDS: ALUMINUM/MAGNESIUM SUSP 30 ML UDC PO SCH ×5 (00:55→23:42)
[2019-05-01] MEDS: OXYCODONE HCL IR 5 MG TAB (IMMEDIATE RELEASE) PO PRN ×6 (01:24→22:35)
[2019-05-01] MEDS: ACETAMINOPHEN 325 MG TAB PO PRN ×5 (01:24→23:41)
[2019-05-01] MEDS: HEPARIN SOD 5,000 UNIT/0.5 ML VIAL SQ SCH ×3 (05:38→21:01)
[2019-05-01] MEDS: PIPERACILLIN/TAZOBACTAM 4.5 GM in DEXTROSE 5% 100 ML IV SCH (05:43)
[2019-05-01] MEDS: LEVOTHYROXINE SODIUM 75 MCG TABLET PO SCH (06:25)
[2019-05-01 07:36] LABS: Basophils # (auto) 0.09 K/uL (0-0.2); Basophils % (auto) 0.9 %; Eosinophils # (auto) 0.45 K/uL (0-0.5); Eosinophils % (auto) 4.3 %; Hemoglobin 8.6 g/dL (12.0-16.0); Immature Granulocytes # (auto) 0.11 K/uL (0.00-0.02); Lymphocytes % (auto) 14.3 %; Mean Corpuscular Hemoglobin 24.7 pg (25-34); Mean Corpuscular Hgb Conc 30.7 g/dL (32-36); Mean Corpuscular Volume 80.5 fL (80-100); Mean Platelet Volume 9.3 fL (7.4-10.4); Monocytes % (auto) 7.6 %; Neutrophils # (auto) 7.57 K/uL (1.4-6.5); Neutrophils % (auto) 71.9 %; Platelet Count 439 K/uL (130-400); RDW Standard Deviation 46.8 fL (36.4-46.3); Red Blood Count 3.48 M/uL (4.2-5.4); White Blood Count 10.52 K/uL (4.8-10.8)
[2019-05-01 08:10] LABS: BUN Creatinine Ratio 9.8 (10-20); Calcium 8.9 mg/dl (8.5-10.1); Creatinine Clr Calc Pharmacy 50.5 ml/min; Est GFR (African American) 40.9; Est GFR (Non-African American) 35.3; Potassium 4.4 mmol/L (3.5-5.1)
[2019-05-01] MEDS: FAMOTIDINE 20 MG TAB PO SCH ×2 (09:09→20:29)
[2019-05-01] MEDS: POTASSIUM CHLORIDE 20 MEQ TABCR PO SCH ×2 (09:09→20:29)
[2019-05-01] MEDS: INSULIN ASPART 100 UNITS/ML 3 ML PEN SC SCH ×4 (09:13→20:56)
--- NOTE | 2019-05-01 09:59 | Progress Note ---
DATE: 05/01/2019 Ms. Woody was seen today on 05/01/2019. Again, I do not think that this is a pulmonary issue. She is 94% on room air. She is not tachycardic. Her white count remains normal. She is having pain in her right abdominal area. Her white count is 10,520. Her hemoglobin stable at 8.6. I do not believe this is a pulmonary issue. I would not address her fluid at this point.
--- NOTE | 2019-05-01 10:06 | Surgery Progress Note ---
Date of Service doing better, less abdominal pain, no nausea, no fever, WBC normal, May 01, 2019 Assessment & Plan (1) Abdominal abscess: Postoperative day #9 status post oratory laparotomy with formation of ileostomy and drainage of abscess Patient is now developed discomfort in the right upper side and is status post pneumothorax. Pain is exacerbated with deep breathing We will get chest x-ray to evaluate for recurrent pneumothorax. This could also demonstrated an upper abdominal collection and will get a CT scan of the abdomen and pelvis with oral contrast only. Keep n.p.o. for now until results of CT and chest x-ray are available 05/01/2019 10:05am doing better, less abdominal pain, no fever, continue treatment, will F/U Supervising Physician Co-Signing Physician Notes Patient seen and examined with Dr. Sexton. I agree with their exam findings, review of systems, assessment and plan. I have personally reviewed the lab work and imaging from today. patient c/o some pain in RLQ, pain around drains prompted general surgery to get a CT with oral contrast, shows improvement overall, decrease in size of the abscess, drains working well CXR with minimal pleural effusion on right, certainly no increase in size breathing well, eating fine, ostomy functioning On exam, lungs CTA bilaterally with decreased breath sounds right base, heart regular S1 and S2, no murmurs. Abdomen soft, mild TTP in RLQ, incision clean, dry, intact, some bruising. LAVELL drains in place, minimal drainage, ostomy functioning well. no edema in legs, no cyanosis or clubbing. No focal neurological deficits. - Sepsis due to intra-abdominal abscess after hysterectomy, POD 8 from ex lap and diverting ileostomy no fever, vitals stable, continue on Zosyn, no growth on cultures WBC down to normal at 10k drains will be managed by surgery, stay in place for now, will definitely go home with them per Dr. Zimmerman CT abd/pelvis with PO contrast only on 04/30 shows overall improvement in abscesses - Anemia: post operative anemia and also possible due to inflammatory state no signs of active bleeding, Hb is 8.4, BP stable will repeat tomorrow, only transfuse if < 7 - STEFANY: FENa is 2.6% suggesting intrinsic etiology, AIN vs ATN would make the most sense feel like it could be AIN due to the Vanco which was stopped 04/26 she is self diuresing, electrolytes continue to be stable discussed with electrician bus, agrees with plan, will consult them if clinical status changes Cr may take some time to return to normal it is up very slightly today but really no change Subjective Patient reports new right sided chest / RUQ pain. She continues to urinate and eat well. Physical Exam Constitutional: WD/WN, vitals as above well developed and well nourished Neck: trachea midline, no thyromegaly Respiratory: normal respiratory effort, lungs clear to auscultation Cardiovascular: RRR, no murmur, no edema Gastrointestinal (Abdomen): Percussion/Palpation: abdomen soft no tenderness, 2 j-p intact, minimal drainage Neurologic: awake Psychiatric: Orientation: alert and oriented x 3 Results & Data Vital Signs (Past 12 Hours) Vital Signs Temp Pulse Resp BP BP Pulse Ox 05/01/19 07:28 36.5 C 76 16 117/76 94 04/30/19 23:40 36.7 C 88 16 129/87 96 Laboratory Results Abnormal lab results 04/30/19 04/30/19 05/01/19 Range/Units 17:14 20:30 07:18 RBC 3.48 L (4.2-5.4) M/uL Hgb 8.6 L (12.0-16.0) g/dL Hct 28.0 L (37-47) % MCH 24.7 L (25-34) pg MCHC 30.7 L (32-36) g/dL RDW Std Deviation 46.8 H (36.4-46.3) fL RDW Coeff of Mine 16.0 H (11.5-14.5) % Plt Count 439 H (130-400) K/uL Immature Gran # (Auto) 0.11 H (0.00-0.02) K/uL Neut # (Auto) 7.57 H (1.4-6.5) K/uL [place] # (Auto) 0.80 H (0.11-0.59) K/uL Creatinine (0.6-1.2) mg/dl BUN/Creatinine Ratio (10-20) Glucose (70-99) mg/dl POC Glucose 141 H 112 H (70-99) 05/01/19 05/01/19 Range/Units 07:18 08:01 RBC (4.2-5.4) M/uL Hgb (12.0-16.0) g/dL Hct (37-47) % MCH (25-34) pg MCHC (32-36) g/dL RDW Std Deviation (36.4-46.3) fL RDW Coeff of Mine (11.5-14.5) % Plt Count (130-400) K/uL Immature Gran # (Auto) (0.00-0.02) K/uL Neut # (Auto) (1.4-6.5) K/uL [place] # (Auto) (0.11-0.59) K/uL Creatinine 1.76 H (0.6-1.2) mg/dl BUN/Creatinine Ratio 9.8 L (10-20) Glucose 107 H (70-99) mg/dl POC Glucose 102 H (70-99)
[2019-05-01] MEDS: ONDANSETRON INJ 2 MG/ML 2 ML VIAL IV PRN (11:02)
--- NOTE | 2019-05-01 11:30 | Family Medicine Progress Note ---
Date of Service May 01, 2019 Assessment & Plan (1) Status post exploratory laparotomy: 39 yo F POD17 from elective laparoscopic hysterectomy with left oophorectomy complicated by abscess formation, POD11 from exploratory laparoscopy with diverting loop ileostomy creation. - Patient clinically improving; she is afebrile and her WBC has normalized for second straight day - repeat A/P CT 04/30 showed improvement (decreasing size) of known abscesses; no new abscesses noted - IV zosyn converted to PO Augmentin today - IV morphine converted to PO oxycodone - general surgery and OB following - patient likely will be discharged with LAVELL drains in place and have them pulled in outpatient surgery clinic - expectant management DVT PPX: Heparin 5,000 units, SQ, tid. Famotidine PO for stress ulcer prophylaxis. Fluids and nutrition: Diabetic diet Dispo: Floor CODE STATUS: Full (2) Acute kidney injury: - pre-operative Cr was 0.69 on 04/08/19 - serum creatinine at 1.76 today, up from 1.75 on 04/30 - d/c of IV vancomycin on 04/27 - etiology AIN (related to renotoxic meds) vs. ATN (secondary to previous septic state). - Urine Na 46, FeNa of 2.7 suggestive of intrarenal etiology - urine eosinophils negative 04/29 - urine culture grew Entrobacter sensitive to zosyn (patient completed course of IV zosyn) - spoke with nephrology about this patient (no formal consult placed) who encouraged expectant management - continue to monitor with daily BMPs (3) Hydropneumothorax: Mrs. Woody developed a R sided hydropneumothorax during her hospital stay, first visualized on a chest CT on 04/20, prior to her exploratory laparotomy. The etiology of the hydropneumothorax is unknown. A chest tube was placed to drain the fluid by CT Surgery, and was subsequently removed. Fluid analysis was benign (gram stain, fungal, and acid fast bacilli smears and cultures all showing no growth). CXR done on 04/30 suggested resolution as no evidence of pneumothorax was noted in impression. (4) Anemia: Mrs. Woody was found to be anemic during her hospital stay. Review of her records indicate she had some baseline anemia prior to her hysterectomy (Hgbs running 10-10.5). Blood loss during surgery and post-procedure hematoma formation resulted in a further decline. She was transfused 1 unit of pRBCs on 04/24 when her hgb dropped to 6.9. - hgb 8.6 today, up from 8.4 on 04/30 - s/p 1 u pRBC transfusion 04/24 - etiology likely post-surgical blood loss/hematoma formation - we would not recommend transfusing again unless hgb drops below 7.0 (5) Status post hysterectomy with oophorectomy: As above (6) Abdominal abscess: - s/p ex-lap with lavage and diverting ileostomy formation with bag on 04/20 - MRSA nasal culture neg 04/21 - IV vancomycin d/c 04/27; IV zosyn converted to PO Augmentin today - blood cultures drawn 04/19 negative to date (7) Hypothyroid: continue home does levothyroxine 75 mcg daily (8) Depression: Supervising Physician Co-Signing Physician Notes Patient seen and examined with Dr. Sexton. I agree with their exam findings, review of systems, assessment and plan. I have personally reviewed the lab work and imaging from today. patient doing well, minimal pain on right side, more at the site of chest tube removal eating well, ostomy functioning, no abdominal pain, no fever reviewed labs, Cr at 1.76, making lots of fluids, less edema in legs WBC down to 10k for two days now On exam, lungs CTA bilaterally with decreased breath sounds right base, heart regular S1 and S2, no murmurs. Abdomen soft, no TTP incision clean, dry, intac t, some bruising. LAVELL drains in place, minimal drainage, ostomy functioning well. no edema in legs, no cyanosis or clubbing. No focal neurological deficits. - Sepsis due to intra-abdominal abscess after hysterectomy, POD 9 from ex lap and diverting ileostomy no fever, vitals stable, no growth on cultures change Zosyn to Augmentin BID WBC down to normal at 10k for two days in a row drains will be managed by surgery, stay in place for now, will definitely go home with them per Dr. Zimmerman CT abd/pelvis with PO contrast only on 04/30 shows overall improvement in abscesses - Anemia: post operative anemia and also possible due to inflammatory state no signs of active bleeding, Hb is 8.6, BP stable - STEFANY: FENa is 2.6% suggesting intrinsic etiology, AIN vs ATN would make the most sense feel like it could be AIN due to the Vanco which was stopped 04/26 she is self diuresing, electrolytes continue to be stable discussed with business technology architect 04/29, agrees with plan, will consult them if clinical status changes Cr may take some time to return to normal it is up very slightly today to 1.76 repeat tomorrow, would like to see Cr improve a little prior to discharge Subjective Patient reports new right sided chest pain has improved; she attributes the soreness to where her chest tube was placed and removed. She continues to urinat e and eat well. She is wondering how she will be able to return to her job with two LAVELL drains in place. Review of Systems Cardiovascular: Additional Comments: right sided chest soreness Gastrointestinal: + abdominal pain; no nausea, no vomiting, no constipation and no diarrhea/loose stools Physical Exam Constitutional: WD/WN, vitals as above + overweight Eyes: + anicteric sclerae ENMT: external ear and nose normal, oropharynx normal Neck: trachea midline, no thyromegaly trachea midline Respiratory: normal respiratory effort, lungs clear to auscultation Auscultation: no crackles, no rales and no wheezes Cardiovascular: Heart Sounds: normal S1 and normal S2 Extremities: + pedal edema Gastrointestinal (Abdomen): Inspection/Auscultation: + abdominal wall ecchymosis (fading since onset), + significant pannus, + abdominal surgical scar, + abdominal surgical incision (clean, dry and intact without surrounding erythema; overlying bandages) and + abdominal surgical drain present ([address] draining small amount of serosanguinous fluid); abdomen not distended Percussion/Palpation: abdomen soft; abdomen nontender (RUQ only) and no guarding ileostomy bag in place, functioning well Skin: no rashes, warm and dry Neurologic: awake Psychiatric: A+Ox3, euthymic affect Results & Data Vital Signs (Past 12 Hours) Vital Signs Temp Pulse Resp BP BP Pulse Ox 05/01/19 07:28 36.5 C 76 16 117/76 94 04/30/19 23:40 36.7 C 88 16 129/87 96 Laboratory Results 05/01/19 05/01/19 05/01/19 Range/Units 08:01 07:18 07:18 WBC 10.52 (4.8-10.8) K/uL RBC 3.48 L (4.2-5.4) M/uL Hgb 8.6 L (12.0-16.0) g/dL Hct 28.0 L (37-47) % MCV 80.5 (80-100) fL MCH 24.7 L (25-34) pg MCHC 30.7 L (32-36) g/dL RDW Std Deviation 46.8 H (36.4-46.3) fL RDW Coeff of Mine 16.0 H (11.5-14.5) % Plt Count 439 H (130-400) K/uL MPV 9.3 (7.4-10.4) fL Immature Gran % (Auto) 1.0 % Neut % (Auto) 71.9 % Lymph % (Auto) 14.3 % A[place] % (Auto) 7.6 % Eos % (Auto) 4.3 % Baso % (Auto) 0.9 % Immature Gran # (Auto) 0.11 H (0.00-0.02) K/uL Neut # (Auto) 7.57 H (1.4-6.5) K/uL Lymph # (Auto) 1.50 (1.2-3.4) K/uL Avery # (Auto) 0.80 H (0.11-0.59) K/uL Eos # (Auto) 0.45 (0-0.5) K/uL Baso # (Auto) 0.09 (0-0.2) K/uL Sodium 136 (136-145) mmol/L Potassium 4.4 (3.5-5.1) mmol/L Chloride 105 (98-107) mmol/L Carbon Dioxide 24 (21-32) mmol/L Anion Gap 7.0 (3-11) BUN 17 (7-18) mg/dl Creatinine 1.76 H (0.6-1.2) mg/dl Est Cr Clr Drug Dosing 50.5 ml/min Est GFR ( Amer) 40.9 Est GFR (Non-Af Amer) 35.3 BUN/Creatinine Ratio 9.8 L (10-20) Glucose 107 H (70-99) mg/dl POC Glucose 102 H (70-99) Calcium 8.9 (8.5-10.1) mg/dl 04/30/19 04/30/19 04/30/19 Range/Units 20:30 17:14 12:14 WBC (4.8-10.8) K/uL RBC (4.2-5.4) M/uL Hgb (12.0-16.0) g/dL Hct (37-47) % MCV (80-100) fL MCH (25-34) pg MCHC (32-36) g/dL RDW Std Deviation (36.4-46.3) fL RDW Coeff of Mine (11.5-14.5) % Plt Count (130-400) K/uL MPV (7.4-10.4) fL Immature Gran % (Auto) % Neut % (Auto) % Lymph % (Auto) % [place] % (Auto) % Eos % (Auto) % Baso % (Auto) % Immature Gran # (Auto) (0.00-0.02) K/uL Neut # (Auto) (1.4-6.5) K/uL Lymph # (Auto) (1.2-3.4) K/uL Avery # (Auto) (0.11-0.59) K/uL Eos # (Auto) (0-0.5) K/uL Baso # (Auto) (0-0.2) K/uL Sodium (136-145) mmol/L Potassium (3.5-5.1) mmol/L Chloride (98-107) mmol/L Carbon Dioxide (21-32) mmol/L Anion Gap (3-11) BUN (7-18) mg/dl Creatinine (0.6-1.2) mg/dl Est Cr Clr Drug Dosing ml/min Est GFR ( Amer) Est GFR (Non-Af Amer) BUN/Creatinine Ratio (10-20) Glucose (70-99) mg/dl POC Glucose 112 H 141 H 83 (70-99) Calcium (8.5-10.1) mg/dl PG Care Time/CCT Total # of Minutes Spent Total Time Spent with Patient: Total time spent is greater than 50% in coordination of care (as documented) at patient's floor/unit and/or counseling patient: Resident Activity Tracking Resident Involvement: Resident Care Provided Care Provided: Adult [facility] Medicine
[2019-05-01] MEDS: AMOXICILLIN/CLAVULANATE 875 MG TAB PO SCH (17:17)
[2019-05-01] MEDS: TOPIRAMATE 100 MG TAB PO SCH (20:28)
[2019-05-01] MEDS: QUETIAPINE FUMARATE 200 MG TAB PO SCH (20:30)
[2019-05-01] MEDS: PARoxetine HCl 20 MG TAB PO SCH (20:30)
[2019-05-02] MEDS: OXYCODONE HCL IR 5 MG TAB (IMMEDIATE RELEASE) PO PRN ×3 (02:15→21:30)
[2019-05-02] MEDS: HEPARIN SOD 5,000 UNIT/0.5 ML VIAL SQ SCH ×3 (05:34→21:24)
[2019-05-02] MEDS: LEVOTHYROXINE SODIUM 75 MCG TABLET PO SCH (05:37)
[2019-05-02] MEDS: ALUMINUM/MAGNESIUM SUSP 30 ML UDC PO SCH ×4 (05:37→23:39)
[2019-05-02] MEDS: ACETAMINOPHEN 325 MG TAB PO PRN (05:37)
[2019-05-02 06:05] LABS: Basophils # (auto) 0.13 K/uL (0-0.2); Basophils % (auto) 1.1 %; Eosinophils # (auto) 0.49 K/uL (0-0.5); Hematocrit (blood only) 28.3 % (37-47); Hemoglobin 8.7 g/dL (12.0-16.0); Immature Granulocytes # (auto) 0.07 K/uL (0.00-0.02); Immature Granulocytes % (auto) 0.6 %; Lymphocytes # (auto) 1.63 K/uL (1.2-3.4); Lymphocytes % (auto) 13.3 %; Mean Corpuscular Hemoglobin 24.8 pg (25-34); Mean Corpuscular Hgb Conc 30.7 g/dL (32-36); Mean Corpuscular Volume 80.6 fL (80-100); Mean Platelet Volume 9.6 fL (7.4-10.4); Monocytes # (auto) 0.92 K/uL (0.11-0.59); Monocytes % (auto) 7.5 %; Neutrophils # (auto) 8.97 K/uL (1.4-6.5); Neutrophils % (auto) 73.5 %; Platelet Count 521 K/uL (130-400); RDW Coefficient of Variation 15.6 % (11.5-14.5); RDW Standard Deviation 45.7 fL (36.4-46.3); Red Blood Count 3.51 M/uL (4.2-5.4); White Blood Count 12.21 K/uL (4.8-10.8)
[2019-05-02 06:47] LABS: BUN Creatinine Ratio 11.2 (10-20); Calcium 8.8 mg/dl (8.5-10.1); Creatinine Clr Calc Pharmacy 54.9 ml/min; Est GFR (African American) 45.2; Potassium 4.2 mmol/L (3.5-5.1)
--- NOTE | 2019-05-02 07:59 | Family Medicine Progress Note ---
Date of Service May 02, 2019 Assessment & Plan (1) Status post exploratory laparotomy: 39 yo F POD18 from elective laparoscopic hysterectomy with left oophorectomy complicated by abscess formation, POD12 from exploratory laparoscopy with diverting loop ileostomy creation. - Patient clinically improving (normal vitals); WBC did increase from 10 yesterday to 12 today. - IV zosyn converted to PO Augmentin on 05/01. change in antibiotic unlikely to explain small rise in WBC count - repeat A/P CT 04/30 showed improvement (decreasing size) of known abscesses; no new abscesses noted - changed PO oxycodone to PO percocet with the thought that added tylenol will more more sustained analgesia - as for her fluid balance, review of I/Os suggests Mrs. Woody has totally direused herself (she had received over 22L of fluid throughout her hospital stay). we will ask nursing to weigh her today and compar to weights taken at beginning of hospital stay - general surgery and OB following - patient likely will be discharged with LAVELL drains in place and have them pulled in outpatient surgery clinic - expectant management DVT PPX: Heparin 5,000 units, SQ, tid. Famotidine PO for stress ulcer prophylaxis. Fluids and nutrition: Diabetic diet Dispo: Floor CODE STATUS: Full (2) Abdominal abscess: - s/p ex-lap with lavage and diverting ileostomy formation with bag on 04/20 - MRSA nasal culture neg 04/21 - IV vancomycin d/c 04/27; IV zosyn converted to PO Augmentin 05/01 - blood cultures drawn 04/19 negative to date (3) Acute kidney injury: - pre-operative Cr was 0.69 on 04/08/19 - serum creatinine at 1.67 today, down from 1.76 on 05/01 - d/c of IV vancomycin on 04/27 - etiology AIN (related to renotoxic meds) vs. ATN (secondary to previous septic state). - Urine Na 46, FeNa of 2.7 suggestive of intrarenal etiology - urine eosinophils negative 04/29 - urine culture grew Entrobacter sensitive to zosyn (patient completed course of IV zosyn) - spoke with nephrology about this patient (no formal consult placed) who encouraged expectant management - continue to monitor with daily BMPs (4) Hydropneumothorax: Mrs. Woody developed a R sided hydropneumothorax during her hospital stay, first visualized on a chest CT on 04/20, prior to her exploratory laparotomy. The etiology of the hydropneumothorax is unknown. A chest tube was placed to drain the fluid by CT Surgery, and was subsequently removed. Fluid analysis was benign (gram stain, fungal, and acid fast bacilli smears and cultures all showing no growth). CXR done on 04/30 suggested resolution as no evidence of pneumothorax was noted in impression. (5) Anemia: Mrs. Woody was found to be anemic during her hospital stay. Review of her records indicate she had some baseline anemia prior to her hysterectomy (Hgbs running 10-10.5). Blood loss during surgery and post-procedure hematoma formation resulted in a further decline. She was transfused 1 unit of pRBCs on 04/24 when her hgb dropped to 6.9. - hgb 8.7 today, up from 8.6 on 05/01 - s/p 1 u pRBC transfusion 04/24 - etiology likely post-surgical blood loss/hematoma formation - we would not recommend transfusing again unless hgb drops below 7.0 (6) Status post hysterectomy with oophorectomy: As above (7) Hypothyroid: continue home does levothyroxine 75 mcg daily (8) Depression: Supervising Physician Co-Signing Physician Notes Patient seen and examined with Dr. Sexton. I agree with their exam findings, review of systems, assessment and plan. I have personally reviewed the lab work and imaging from today. patient continues to do well, pain controlled with oxycodone eating well, no breathing issues reviewed labs, WBC up slightly at 12k, Cr down to 1.6 from 1.7 On exam, lungs CTA bilaterally with decreased breath sounds right base, heart regular S1 and S2, no murmurs. Abdomen soft, no TTP incision clean, dry, intact, some bruising. LAVELL drains in place, minimal drainage, ostomy functioning well. no edema in legs, no cyanosis or clubbing. No focal neurological deficits. - Sepsis due to intra-abdominal abscess after hysterectomy, POD 10 from ex lap and diverting ileostomy no fever, vitals stable, no growth on cultures change Zosyn to Augmentin BID on 05/01 WBC up very slightly to 12k from 10k, repeat tomorrow drains will be managed by surgery, stay in place for now, will definitely go home with them per Dr. Zimmerman CT abd/pelvis with PO contrast only on 04/30 shows overall improvement in abscesses - Anemia: post operative anemia and also possible due to inflammatory state no signs of active bleeding, Hb is 8.7, BP stable her Hb has been stable all week - STEFANY: FENa is 2.6% suggesting intrinsic etiology, AIN vs ATN would make the most sense feel like it could be AIN due to the Vanco which was stopped 04/26 she is self diuresing, electrolytes continue to be stable discussed with business account leader 04/29, agrees with plan, will consult them if clinical status changes Cr may take some time to return to normal Cr finally improving slightly to 1.6 from 1.6, so it likely plateaued will repeat Cr tomorrow Subjective no acute events overnight. Feeling well. Ambulating, eating and toileting well. she is taking her oxycodone 5mg q4hr but does report increased pain (up to a 7/10) in the last hour of the dose (before she can take the next tablet). she requests additional pain medication Review of Systems Cardiovascular: Additional Comments: right sided chest soreness Physical Exam Physical Exam: Weight: 04/16 (day of laproscopic hysterectomy): 98.8kg. 04/27: 104.6kg Constitutional: WD/WN, vitals as above + overweight Eyes: + anicteric sclerae ENMT: external ear and nose normal, oropharynx normal Neck: trachea midline, no thyromegaly trachea midline Respiratory: normal respiratory effort, lungs clear to auscultation Auscultation: no crackles, no rales and no wheezes Cardiovascular: Heart Sounds: normal S1 and normal S2 Gastrointestinal (Abdomen): Inspection/Auscultation: + abdominal wall ecchymosis (fading since onset), + significant pannus, + abdominal surgical scar, + abdominal surgical incision (clean, dry and intact without surrounding erythema; overlying bandages) and + abdominal surgical drain present ([address] draining small amount of serosanguinous fluid); abdomen not distended Percussion/Palpation: abdomen soft; abdomen nontender (RUQ only) and no guarding skin around drain sites is without surrounding erythema or warmth Skin: no rashes, warm and dry Neurologic: awake Psychiatric: A+Ox3, euthymic affect Results & Data Vital Signs (Past 12 Hours) Vital Signs Temp Pulse Resp BP Pulse Ox 05/02/19 07:17 36.6 C 89 16 118/78 95 05/02/19 01:56 37.2 C 05/02/19 00:48 37.7 C H 05/01/19 23:27 37.6 C H 106 H 16 117/76 95 Laboratory Results 05/02/19 05/02/19 05/01/19 Range/Units 05:48 05:48 20:39 WBC 12.21 H (4.8-10.8) K/uL RBC 3.51 L (4.2-5.4) M/uL Hgb 8.7 L (12.0-16.0) g/dL Hct 28.3 L (37-47) % MCV 80.6 (80-100) fL MCH 24.8 L (25-34) pg MCHC 30.7 L (32-36) g/dL RDW Std Deviation 45.7 (36.4-46.3) fL RDW Coeff of Mine 15.6 H (11.5-14.5) % Plt Count 521 H (130-400) K/uL MPV 9.6 (7.4-10.4) fL Immature Gran % (Auto) 0.6 % Neut % (Auto) 73.5 % Lymph % (Auto) 13.3 % Jerome % (Auto) 7.5 % Eos % (Auto) 4.0 % Baso % (Auto) 1.1 % Immature Gran # (Auto) 0.07 H (0.00-0.02) K/uL Neut # (Auto) 8.97 H (1.4-6.5) K/uL Lymph # (Auto) 1.63 (1.2-3.4) K/uL Jerome # (Auto) 0.92 H (0.11-0.59) K/uL Eos # (Auto) 0.49 (0-0.5) K/uL Baso # (Auto) 0.13 (0-0.2) K/uL Sodium 136 (136-145) mmol/L Potassium 4.2 (3.5-5.1) mmol/L Chloride 105 (98-107) mmol/L Carbon Dioxide 23 (21-32) mmol/L Anion Gap 8.0 (3-11) BUN 18 (7-18) mg/dl Creatinine 1.62 H (0.6-1.2) mg/dl Est Cr Clr Drug Dosing 54.9 ml/min Est GFR ( Amer) 45.2 Est GFR (Non-Af Amer) 39.0 BUN/Creatinine Ratio 11.2 (10-20) Glucose 99 (70-99) mg/dl POC Glucose 133 H (70-99) Calcium 8.8 (8.5-10.1) mg/dl 05/01/19 05/01/19 05/01/19 Range/Units 17:24 12:13 08:01 WBC (4.8-10.8) K/uL RBC (4.2-5.4) M/uL Hgb (12.0-16.0) g/dL Hct (37-47) % MCV (80-100) fL MCH (25-34) pg MCHC (32-36) g/dL RDW Std Deviation (36.4-46.3) fL RDW Coeff of Mine (11.5-14.5) % Plt Count (130-400) K/uL MPV (7.4-10.4) fL Immature Gran % (Auto) % Neut % (Auto) % Lymph % (Auto) % Jerome % (Auto) % Eos % (Auto) % Baso % (Auto) % Immature Gran # (Auto) (0.00-0.02) K/uL Neut # (Auto) (1.4-6.5) K/uL Lymph # (Auto) (1.2-3.4) K/uL Jerome # (Auto) (0.11-0.59) K/uL Eos # (Auto) (0-0.5) K/uL Baso # (Auto) (0-0.2) K/uL Sodium (136-145) mmol/L Potassium (3.5-5.1) mmol/L Chloride (98-107) mmol/L Carbon Dioxide (21-32) mmol/L Anion Gap (3-11) BUN (7-18) mg/dl Creatinine (0.6-1.2) mg/dl Est Cr Clr Drug Dosing ml/min Est GFR ( Amer) Est GFR (Non-Af Amer) BUN/Creatinine Ratio (10-20) Glucose (70-99) mg/dl POC Glucose 99 91 102 H (70-99) Calcium (8.5-10.1) mg/dl 05/01/19 Range/Units 07:18 WBC (4.8-10.8) K/uL RBC (4.2-5.4) M/uL Hgb (12.0-16.0) g/dL Hct (37-47) % MCV (80-100) fL MCH (25-34) pg MCHC (32-36) g/dL RDW Std Deviation (36.4-46.3) fL RDW Coeff of Mine (11.5-14.5) % Plt Count (130-400) K/uL MPV (7.4-10.4) fL Immature Gran % (Auto) % Neut % (Auto) % Lymph % (Auto) % Jerome % (Auto) % Eos % (Auto) % Baso % (Auto) % Immature Gran # (Auto) (0.00-0.02) K/uL Neut # (Auto) (1.4-6.5) K/uL Lymph # (Auto) (1.2-3.4) K/uL Jerome # (Auto) (0.11-0.59) K/uL Eos # (Auto) (0-0.5) K/uL Baso # (Auto) (0-0.2) K/uL Sodium 136 (136-145) mmol/L Potassium 4.4 (3.5-5.1) mmol/L Chloride 105 (98-107) mmol/L Carbon Dioxide 24 (21-32) mmol/L Anion Gap 7.0 (3-11) BUN 17 (7-18) mg/dl Creatinine 1.76 H (0.6-1.2) mg/dl Est Cr Clr Drug Dosing 50.5 ml/min Est GFR ( Amer) 40.9 Est GFR (Non-Af Amer) 35.3 BUN/Creatinine Ratio 9.8 L (10-20) Glucose 107 H (70-99) mg/dl POC Glucose (70-99) Calcium 8.9 (8.5-10.1) mg/dl PG Care Time/CCT Total # of Minutes Spent Total Time Spent with Patient: Total time spent is greater than 50% in coordination of care (as documented) at patient's floor/unit and/or counseling patient: Resident Activity Tracking Resident Involvement: Resident Care Provided Care Provided: Adult Hospital Medicine
[2019-05-02] MEDS: POTASSIUM CHLORIDE 20 MEQ TABCR PO SCH ×2 (08:58→21:23)
[2019-05-02] MEDS: FAMOTIDINE 20 MG TAB PO SCH ×2 (08:58→21:23)
[2019-05-02] MEDS: AMOXICILLIN/CLAVULANATE 875 MG TAB PO SCH ×2 (08:58→17:55)
[2019-05-02] MEDS: INSULIN ASPART 100 UNITS/ML 3 ML PEN SC SCH ×4 (09:00→21:22)
[2019-05-02] MEDS: OXYCODONE/ACETAMINOPHEN 5mg/325mg TAB PO PRN ×2 (11:20→16:36)
[2019-05-02] MEDS: ONDANSETRON INJ 2 MG/ML 2 ML VIAL IV PRN ×3 (11:21→18:23)
--- NOTE | 2019-05-02 11:51 | Progress Note ---
DATE: 05/02/2019 Ms. Woody remains with good saturations on 95% room air. She had a mild fever at 37.7 early this morning. She is 36.6 now. She is still complaining of pain in her posterior right abdomen and flank area. She is moving air well except for mildly decreased breath sounds at the base. I discussed the fact that she really needs to be ambulating in the hallway regularly. She has evidence of venous insufficiency in the left lower extremity with varicose veins and given her diagnosis and her obesity and her postop state, she is at high risk for a deep vein thrombosis. I explained this to her. I see no evidence of a DVT on today's exam. She has a small right pleural effusion, which I do not believe is clinically significant. TREV
--- NOTE | 2019-05-02 11:55 | Surgery Progress Note ---
Date of Service doing fine, no abdominal pain, no fever, May 02, 2019 Assessment & Plan (1) Abdominal abscess: Postoperative day #9 status post oratory laparotomy with formation of ileostomy and drainage of abscess Patient is now developed discomfort in the right upper side and is status post pneumothorax. Pain is exacerbated with deep breathing We will get chest x-ray to evaluate for recurrent pneumothorax. This could also demonstrated an upper abdominal collection and will get a CT scan of the abdomen and pelvis with oral contrast only. Keep n.p.o. for now until results of CT and chest x-ray are available 05/01/2019 10:05am doing better, less abdominal pain, no fever, continue treatment, will F/U 05/02/2019 11:54am doing fine, continue treatment, Subjective no acute events overnight. Feeling well. Ambulating, eating and toileting well. she is taking her oxycodone 5mg q4hr but does report increased pain (up to a 7/10) in the last hour of the dose (before she can take the next tablet). she requests additional pain medication Physical Exam Constitutional: WD/WN, vitals as above well developed and well nourished Neck: trachea midline, no thyromegaly Respiratory: normal respiratory effort, lungs clear to auscultation Cardiovascular: RRR, no murmur, no edema Gastrointestinal (Abdomen): Percussion/Palpation: abdomen soft Neurologic: awake Psychiatric: Orientation: alert and oriented x 3 Results & Data Vital Signs (Past 12 Hours) Vital Signs Temp Pulse Resp BP Pulse Ox 05/02/19 07:17 36.6 C 89 16 118/78 95 05/02/19 01:56 37.2 C 05/02/19 00:48 37.7 C H
[2019-05-02] MEDS ORDERED: OXYCODONE HCL IR 5 MG TAB (IMMEDIATE RELEASE) PO STA (12:47)
--- NOTE | 2019-05-02 17:25 | Surgery Progress Note ---
Date of Service May 02, 2019 Assessment & Plan (1) Status post exploratory laparotomy: POD#11. Site of bowel perforation was not identified during ex-lap procedure; ileostomy loop was created; ileostomy bag in place and draining bilious fluid. - Patient is clinically improving (afebrile, HR down) - WBC slowly down trending to 10 but increase today to 12. Will continue to monitor - Patient perviously on IV antibiotics (Zosyn). Switched to oral antibiotics (augmentin) on 05/01/19 -H/H stable -Continue diabetic diet -Pelvic drains remain in place. Patient to go home with drains. -Percocet discontinued secondary to nausea. Ordered roxicodone which Patient is able to tolerate. -Repeat imaging on 04/30/19 CXR: There is no pneumothorax. No consolidation is noted. There is no evidence for pulmonary edema. There is a trace right pleural effusion. Mild left basilar opacity favors atelectasis. Cardiomediastinal silhouette is unremarkable. CT Abd/Pelvis: IMPRESSION: 1. Status post creation of a right lower quadrant ileostomy and drainage of multiple abscesses. Significant improvement since CT of April 20, 2019. 4.4 x 3.1 cm left lower quadrant abdominal anterior fluid collection which has slightly decreased in size. This favors an abscess. No additional fluid collections. No bowel obstruction. Mesenteric and operative bed infiltration. Interval decrease in small bowel wall thickening. 2. Small right pleural effusion which is similar to prior exam. No pneumothorax identified. Right basilar opacity which favors atelectasis. Subjective POD#11. Site of bowel perforation was not identified during ex-lap procedure; ileostomy loop was created; ileostomy bag in place and draining bilious fluid. - Patient with abdominal pain. Recently given Percocet for pain and currently feeling nauseous. - Patient is clinically improving (afebrile, HR down) - WBC slowly down trending to 10.4 with an increase today to 12. Will continue to monitor - Patient previously on IV antibiotics (Zosyn) and converted to Augmentin on 05/01/19 -H/H stable -Continue diabetic diet -Pelvic drains remain in place. Physical Exam Respiratory: normal respiratory effort, lungs clear to auscultation Cardiovascular: Rate/Rhythm: regular rate and regular rhythm Gastrointestinal (Abdomen): Soft, obese, tender to palpation by drain sites. Incision: C/D/I with drain and annalisa in place. Hematoma decreasing around LLQ incision and mid-line vertical incision. Ostomy with bilious and more formed m aterial . Pelvic drains in place with minimal serosanguineous fluid Results & Data Vital Signs (Past 12 Hours) Vital Signs Temp Pulse Resp BP Pulse Ox 05/02/19 15:37 36.7 C 95 H 16 125/88 96 05/02/19 07:17 36.6 C 89 16 118/78 95
[2019-05-02] MEDS ORDERED: HYDROmorphone INJ 0.5 MG/0.5 ML SYR IV STA (17:53)
[2019-05-02] MEDS: PARoxetine HCl 20 MG TAB PO SCH (21:23)
[2019-05-02] MEDS: QUETIAPINE FUMARATE 200 MG TAB PO SCH (21:23)
[2019-05-02] MEDS: TOPIRAMATE 100 MG TAB PO SCH (21:23)
[2019-05-03] MEDS: OXYCODONE HCL IR 5 MG TAB (IMMEDIATE RELEASE) PO PRN ×5 (05:06→21:14)
[2019-05-03] MEDS: ALUMINUM/MAGNESIUM SUSP 30 ML UDC PO SCH ×4 (05:07→23:14)
[2019-05-03] MEDS: LEVOTHYROXINE SODIUM 75 MCG TABLET PO SCH (05:07)
[2019-05-03] MEDS: HEPARIN SOD 5,000 UNIT/0.5 ML VIAL SQ SCH ×3 (05:08→21:17)
[2019-05-03 05:10] LABS: Basophils # (auto) 0.19 K/uL (0-0.2); Basophils % (auto) 1.5 %; Eosinophils % (auto) 4.7 %; Hematocrit (blood only) 27.7 % (37-47); Hemoglobin 8.7 g/dL (12.0-16.0); Immature Granulocytes # (auto) 0.05 K/uL (0.00-0.02); Immature Granulocytes % (auto) 0.4 %; Lymphocytes # (auto) 1.43 K/uL (1.2-3.4); Lymphocytes % (auto) 11.2 %; Mean Corpuscular Hemoglobin 24.9 pg (25-34); Mean Corpuscular Hgb Conc 31.4 g/dL (32-36); Mean Corpuscular Volume 79.4 fL (80-100); Mean Platelet Volume 9.2 fL (7.4-10.4); Monocytes # (auto) 1.04 K/uL (0.11-0.59); Monocytes % (auto) 8.1 %; Neutrophils # (auto) 9.48 K/uL (1.4-6.5); Neutrophils % (auto) 74.1 %; Platelet Count 529 K/uL (130-400); RDW Coefficient of Variation 15.6 % (11.5-14.5); Red Blood Count 3.49 M/uL (4.2-5.4); White Blood Count 12.79 K/uL (4.8-10.8)
[2019-05-03 05:36] LABS: BUN Creatinine Ratio 11.7 (10-20); Calcium 8.7 mg/dl (8.5-10.1); Creatinine Clr Calc Pharmacy 52.6 ml/min; Est GFR (Non-African American) 37.1; Potassium 4.5 mmol/L (3.5-5.1)
[2019-05-03] MEDS: POTASSIUM CHLORIDE 20 MEQ TABCR PO SCH ×2 (09:02→21:13)
[2019-05-03] MEDS: AMOXICILLIN/CLAVULANATE 875 MG TAB PO SCH ×2 (09:02→18:05)
[2019-05-03] MEDS: FAMOTIDINE 20 MG TAB PO SCH ×2 (09:03→21:14)
[2019-05-03] MEDS: INSULIN ASPART 100 UNITS/ML 3 ML PEN SC SCH ×4 (09:06→21:17)
--- NOTE | 2019-05-03 11:19 | Family Medicine Progress Note ---
Date of Service May 03, 2019 Assessment & Plan (1) Status post exploratory laparotomy: 39 yo F POD19 from elective laparoscopic hysterectomy with left oophorectomy complicated by abscess formation, POD13 from exploratory laparoscopy with diverting loop ileostomy creation. Post Op Abdominal abscess, Status post ex lap and diverting ileostomy 04/20 - Patient clinically improving; WBC slight increase to 12.79 from 12.21. - IV Vanc d/luis carlos on 04/27. Zosyn converted to PO Augmentin on 05/01. change in antibiotic unlikely to explain small rise in WBC count. - repeat A/P CT 04/30 showed improvement (decreasing size) of known abscesses; no new abscesses noted. - Patient was changed to PO Percocet, but did not tolerate well do to nausea. -Gen Surg converted patient to Oxycodone 5mg with Oxycodone 10mg for breakthrough pain. -Spoke with Gen Surg today who noted hope that patient could be discharged in the next 1-2 days on home care. - patient likely will be discharged with DARIN drains in place and have them pulled in outpatient surgery clinic - expectant management STEFANY - pre-operative Cr was 0.69 on 04/08/19 - serum creatinine at 1.69 today - d/c of IV vancomycin on 04/27 - etiology AIN (related to renotoxic meds) vs. ATN (secondary to previous septic state). - Urine Na 46, FeNa of 2.7 suggestive of intrarenal etiology - urine eosinophils negative 04/29 - continue to monitor with daily BMPs UTI - urine culture grew Enterobacter sensitive to Zosyn (patient completed course of IV Zosyn) - converted to PO Augmentin Hydropneumothorax -Developed R sided hydropneunothorax during hospital stay first visualized on chest CT 04/20 prior to exploratory lap. -Etiology unclear -Chest tube was placed, fluid drained, and removed. -Fluid analysis of drainage was benign. -Chest XR 04/30 suggested resolution -Currently stable. Anemia -Baseline anemia prior to initial hysterectomy Hgb 10-10.5 -Hgb 8.7 today stable compared to yesterday -Only consider transfusion if hgb below 7. Preadmission - S/P Hysterectomy with L Oophorectomy As above Hypothyroid continue home does levothyroxine 75 mcg daily Depression -Continue home Paxil and Quetiapine. DVT PPX: Heparin 5,000 units, SQ, tid. Famotidine PO for stress ulcer prophylaxis. Fluids and nutrition: Diabetic diet Dispo: Floor CODE STATUS: Full (2) Abdominal abscess: (3) Acute kidney injury: (4) Hydropneumothorax: (5) Anemia: (6) Status post hysterectomy with oophorectomy: (7) Hypothyroid: (8) Depression: Supervising Physician Co-Signing Physician Notes Resident Physician Supervision Note: I independently interviewed and examined the patient and verified the mata history and physical, reviewed labs and image studies, discussed the case with the resident Dr. Carrera and agree with the findings and care plan. Subjective Patient was seen and evaluated today at the bedside. She appeared to be in no apparent distress and noted that he pain was somewhat controlled, but that she was still having 5/10 pain in her lower abdomen and low back that she described as tender and sore. She states that she continues to have a strong appetite without nausea or vomiting. She has no other complaints at this time. Review of Systems Constitutional: no fever and no chills Eyes: no eye pain Ear, Nose, Mouth, Throat: no dizziness Respiratory: no cough, no dyspnea, no hemoptysis, no pain on inspiration and no wheezing Cardiovascular: no chest pain and no palpitations Gastrointestinal: + abdominal pain (soreness in areas of drains); no nausea, no vomiting, no constipation and no diarrhea/loose stools Genitourinary: no dysuria, no urinary hesitancy and no hematuria Musculoskeletal: + back pain (low back pain ) Physical Exam Constitutional: well developed and well nourished; no acute distress and not in distress Eyes: PERRL, conjunctivae normal, anicteric sclerae + anicteric sclerae Neck: trachea midline, no thyromegaly normal visual inspection, trachea midline and + thick neck Respiratory: normal respiratory effort; no respiratory distress, no cough and not tachypneic Auscultation: lungs clear to auscultation bilaterally; no diminished lung sounds and no wheezes Cardiovascular: Rate/Rhythm: regular rhythm and + tachycardic (101) Heart Sounds: normal S1 and normal S2; no gallop, no murmur and no cardiac rub Vessels: normal peripheral pulses; no JVD Extremities: no calf tenderness Gastrointestinal (Abdomen): Inspection/Auscultation: abdomen normal to inspection, normal bowel sounds, + abdominal surgical scar, + abdominal surgical incision (Dressing clean, dry, and intact) and + abdominal surgical drain present (Left darin drain cloudy/purulent, right minimal serous noted); abdomen not distended Percussion/Palpation: + abdomen tender (at incision and drain sites, appropriate) and abdomen soft; no guarding and abdomen not rigid Musculoskeletal: Spine: normal cervical ROM and no pain with cervical ROM Skin: no rashes, warm and dry + pallor (generally looks pale) Neurologic: moves all extremities and awake Motor/Sensory: no sensory deficit Psychiatric: A+Ox3, euthymic affect Orientation: alert and oriented x 3 Results & Data Vital Signs (Past 12 Hours) Vital Signs Temp Pulse Resp BP Pulse Ox 05/03/19 07:19 36.8 C 101 H 16 135/89 93 Laboratory Results Abnormal lab results 05/02/19 05/03/19 05/03/19 Range/Units 21:12 04:59 04:59 WBC 12.79 H (4.8-10.8) K/uL RBC 3.49 L (4.2-5.4) M/uL Hgb 8.7 L (12.0-16.0) g/dL Hct 27.7 L (37-47) % MCV 79.4 L (80-100) fL MCH 24.9 L (25-34) pg MCHC 31.4 L (32-36) g/dL RDW Coeff of Mine 15.6 H (11.5-14.5) % Plt Count 529 H (130-400) K/uL Immature Gran # (Auto) 0.05 H (0.00-0.02) K/uL Neut # (Auto) 9.48 H (1.4-6.5) K/uL Martin # (Auto) 1.04 H (0.11-0.59) K/uL Eos # (Auto) 0.60 H (0-0.5) K/uL BUN 20 H (7-18) mg/dl Creatinine 1.69 H (0.6-1.2) mg/dl Glucose 115 H (70-99) mg/dl POC Glucose 149 H (70-99) 05/03/19 05/03/19 05/03/19 Range/Units 08:08 12:37 17:32 WBC (4.8-10.8) K/uL RBC (4.2-5.4) M/uL Hgb (12.0-16.0) g/dL Hct (37-47) % MCV (80-100) fL MCH (25-34) pg MCHC (32-36) g/dL RDW Coeff of Mine (11.5-14.5) % Plt Count (130-400) K/uL Immature Gran # (Auto) (0.00-0.02) K/uL Neut # (Auto) (1.4-6.5) K/uL Martin # (Auto) (0.11-0.59) K/uL Eos # (Auto) (0-0.5) K/uL BUN (7-18) mg/dl Creatinine (0.6-1.2) mg/dl Glucose (70-99) mg/dl POC Glucose 128 H 112 H 110 H (70-99) Medications Administered Current Inpatient Medications Acetaminophen (Tylenol) 650 mg PO Q4H PRN PRN Reason: Pain or Fever Stop: 05/30/19 03:03 Last Admin: 05/02/19 05:37 Dose: 650 mg Documented by: Al Hydrox/Mg Hydrox/Simethicone (Maalox) 30 ml PO Q6 [facility] Stop: 05/23/19 21:39 Last Admin: 05/03/19 12:40 Dose: 30 ml Documented by: Amoxicillin/Clavulanate Potassium (Augmentin 875mg) 1 tab PO BIDM JANICE Stop: 05/11/19 16:59 Last Admin: 05/03/19 09:02 Dose: 1 tab Documented by: Dextrose (Dextrose 50%) 25 - 50 ml IV UD PRN; Protocol PRN Reason: Hypoglycemia Protocol Stop: 05/27/19 18:59 Famotidine (Pepcid) 20 mg PO BID JANICE Stop: 05/29/19 20:59 Last Admin: 05/03/19 09:03 Dose: 20 mg Documented by: Glucagon (Glucagen) 1 mg IM UD PRN; Protocol PRN Reason: Hypoglycemia Protocol Stop: 05/27/19 18:59 Glucose (Glucose 40%) 15 - 30 gm PO UD PRN; Protocol PRN Reason: Hypoglycemia Protocol Stop: 05/27/19 18:59 Glucose (Dex4 Glucose) 4 - 8 tabs PO UD PRN; Protocol PRN Reason: Hypoglycemia Protocol Stop: 05/27/19 18:59 Heparin Sodium (Porcine) (Heparin Sodium (Porcine)) 5,000 units SQ Q8 JANICE Stop: 05/30/19 13:59 Last Admin: 05/03/19 13:14 Dose: 5,000 units Documented by: Insulin Aspart (Novolog Flexpen) 0 units SC ACHS [facility] Stop: 05/30/19 16:29 Last Admin: 05/03/19 12:41 Dose: 3 units Documented by: Levothyroxine Sodium (Synthroid) 75 mcg PO DAILYBB [facility] Stop: 05/22/19 06:29 Last Admin: 05/03/19 05:07 Dose: 75 mcg Documented by: Miscellaneous (Carbohydrates For Hypoglycemia) 15 - 30 gm PO UD PRN PRN Reason: Hypoglycemia Treatment Stop: 05/27/19 18:59 Ondansetron HCl (Zofran) 4 mg IV Q6H PRN PRN Reason: Nausea And Vomiting Stop: 05/19/19 20:00 Last Admin: 05/02/19 18:23 Dose: 4 mg Documented by: Oxycodone HCl (Roxicodone Immediate Rel) 5 mg PO Q4H PRN PRN Reason: Pain Stop: 05/16/19 17:31 Last Admin: 05/03/19 13:13 Dose: 5 mg Documented by: Oxycodone HCl (Roxicodone Immediate Rel) 10 mg PO Q4H PRN PRN Reason: Severe Pain Stop: 05/17/19 15:01 Last Admin: 05/03/19 17:15 Dose: 10 mg Documented by: Paroxetine HCl (Paxil) 40 mg PO HS [facility] Stop: 05/21/19 20:59 Last Admin: 05/02/19 21:23 Dose: 40 mg Documented by: Potassium Chloride (Klor-Con M20) 20 meq PO BID [facility] Stop: 05/25/19 20:59 Last Admin: 05/03/19 09:02 Dose: 20 meq Documented by: Quetiapine Fumarate (Seroquel) 200 mg PO HS [facility] Stop: 05/21/19 20:59 Last Admin: 05/02/19 21:23 Dose: 200 mg Documented by: Topiramate (Topamax) 100 mg PO HS [facility] Stop: 05/21/19 20:59 Last Admin: 05/02/19 21:23 Dose: 100 mg Documented by: PG Care Time/CCT Total # of Minutes Spent Total Time Spent with Patient: Total time spent is greater than 50% in coordination of care (as documented) at patient's floor/unit and/or counseling patient: Resident Activity Tracking Resident Involvement: Resident Care Provided Care Provided: Adult ED
--- NOTE | 2019-05-03 15:10 | Surgery Progress Note ---
Date of Service May 03, 2019 Assessment & Plan (1) Abdominal abscess: Postoperative day #12 status post oratory laparotomy with formation of ileostomy and drainage of abscess -vitals stable, afebrile - CT scan on 04/30 showed improvement of LLQ anterior intra-abdominal abscess and improvement of small bowel wall thickening - leukocytosis stable around 12K - Moderate to severe abdominal pain , not well controlled with current regimen - H&H stable at 8.7/27.7 Plan: add 10 mg oxycodone immediate release prn severe pain Continue PO Antibiotics continue carb DM diet Continue darin drains, anton drain removed continue OOB to chair and ambulation Continue SCDs and Heparin Continue medical management Continue incentive spirometry Dr. Zimmerman has seen and examined pt, agrees with above Subjective pain still present, 1 Oxycodone doesn't seem to help with pain no n/v tolerating diet Physical Exam Constitutional: WD/WN, vitals as above no acute distress Gastrointestinal (Abdomen): Inspection/Auscultation: + abdominal surgical incision (midline incision with anton drain present) and + abdominal surgical drain present (Left darin drain cloudy/purulent, right serous); abdomen not distended Percussion/Palpation: + abdomen tender (at incision and drain sites, appropriate) and abdomen soft; no guarding and abdomen not rigid ileostomy pink and functioning Skin: no rashes, warm and dry Psychiatric: A+Ox3, euthymic affect Results & Data Vital Signs (Past 12 Hours) Vital Signs Temp Pulse Resp BP Pulse Ox 05/03/19 07:19 36.8 C 101 H 16 135/89 93
--- NOTE | 2019-05-03 18:28 | Surgery Progress Note ---
Date of Service May 03, 2019 Assessment & Plan (1) Status post exploratory laparotomy: POD#12. Site of bowel perforation was not identified during ex-lap procedure; ileostomy loop was created; ileostomy bag in place and draining bilious fluid. - Patient is clinically improving (afebrile, HR down) - WBC with slight increase from 12.21 to 12.7 Will continue to monitor - Patient perviously on IV antibiotics (Zosyn). Switched to oral antibiotics (augmentin) on 05/01/19 -H/H stable -Continue diabetic diet -Pelvic drains remain in place. Patient to go home with drains. -Pain controlled with Oxycodone 10 mg -Repeat imaging on 04/30/19 CXR: There is no pneumothorax. No consolidation is noted. There is no evidence for pulmonary edema. There is a trace right pleural effusion. Mild left basilar opacity favors atelectasis. Cardiomediastinal silhouette is unremarkable. CT Abd/Pelvis: IMPRESSION: 1. Status post creation of a right lower quadrant ileostomy and drainage of multiple abscesses. Significant improvement since CT of April 20, 2019. 4.4 x 3.1 cm left lower quadrant abdominal anterior fluid collection which has slightly decreased in size. This favors an abscess. No additional fluid collections. No bowel obstruction. Mesenteric and operative bed infiltration. Interval decrease in small bowel wall thickening. 2. Small right pleural effusion which is similar to prior exam. No pneumothorax identified. Right basilar opacity which favors atelectasis. Subjective POD#12. Site of bowel perforation was not identified during ex-lap procedure; ileostomy loop was created; ileostomy bag in place and draining bilious fluid. - Abdominal pain better controlled with 10 mg of oxycodone than 5 mg . - Patient is clinically improving (afebrile, HR down) - WBC slight increase from 12.21 to 12.7. Will continue to monitor - Patient previously on IV antibiotics (Zosyn) and converted to Augmentin on 05/01/19 -H/H stable -Continue diabetic diet -Pelvic drains remain in place. Physical Exam Respiratory: normal respiratory effort, lungs clear to auscultation Cardiovascular: Rate/Rhythm: regular rhythm and + tachycardic Gastrointestinal (Abdomen): Soft, obese, tender to palpation by drain sites. Incision: C/D/I withstaples in place. Marta drain inside the incision removed. Hematoma decreasing around LLQ incision and mid-line vertical incision. Ostomy with bilious and more formed material . Pelvic drains in place with minimal serosanguineous fluid Results & Data Vital Signs (Past 12 Hours) Vital Signs Temp Pulse Resp BP Pulse Ox 05/03/19 16:22 36.3 C L 99 H 16 128/85 100 05/03/19 07:19 36.8 C 101 H 16 135/89 93
[2019-05-03] MEDS: TOPIRAMATE 100 MG TAB PO SCH (21:14)
[2019-05-03] MEDS: PARoxetine HCl 20 MG TAB PO SCH (21:14)
[2019-05-03] MEDS: QUETIAPINE FUMARATE 200 MG TAB PO SCH (21:14)
[2019-05-04] MEDS: OXYCODONE HCL IR 5 MG TAB (IMMEDIATE RELEASE) PO PRN ×5 (05:15→23:14)
[2019-05-04] MEDS: LEVOTHYROXINE SODIUM 75 MCG TABLET PO SCH (05:15)
[2019-05-04] MEDS: HEPARIN SOD 5,000 UNIT/0.5 ML VIAL SQ SCH ×3 (05:15→21:32)
[2019-05-04] MEDS: ALUMINUM/MAGNESIUM SUSP 30 ML UDC PO SCH ×4 (05:15→23:14)
[2019-05-04 05:51] LABS: Basophils # (auto) 0.15 K/uL (0-0.2); Basophils % (auto) 1.3 %; Eosinophils # (auto) 0.69 K/uL (0-0.5); Eosinophils % (auto) 5.8 %; Hematocrit (blood only) 27.7 % (37-47); Hemoglobin 8.9 g/dL (12.0-16.0); Immature Granulocytes # (auto) 0.06 K/uL (0.00-0.02); Immature Granulocytes % (auto) 0.5 %; Lymphocytes # (auto) 1.56 K/uL (1.2-3.4); Lymphocytes % (auto) 13.1 %; Mean Corpuscular Hemoglobin 25.4 pg (25-34); Mean Corpuscular Hgb Conc 32.1 g/dL (32-36); Mean Corpuscular Volume 79.1 fL (80-100); Mean Platelet Volume 9.2 fL (7.4-10.4); Monocytes # (auto) 0.95 K/uL (0.11-0.59); Neutrophils # (auto) 8.49 K/uL (1.4-6.5); Neutrophils % (auto) 71.3 %; Platelet Count 561 K/uL (130-400); RDW Coefficient of Variation 15.3 % (11.5-14.5); RDW Standard Deviation 44.2 fL (36.4-46.3)
[2019-05-04 06:26] LABS: BUN Creatinine Ratio 12.7 (10-20); Calcium 8.6 mg/dl (8.5-10.1); Creatinine Clr Calc Pharmacy 50.5 ml/min; Est GFR (African American) 40.9; Est GFR (Non-African American) 35.3; Potassium 4.1 mmol/L (3.5-5.1)
--- NOTE | 2019-05-04 08:01 | Surgery Progress Note ---
Date of Service May 04, 2019 Assessment & Plan (1) Status post exploratory laparotomy: POD#13. Site of bowel perforation was not identified during ex-lap procedure; ileostomy loop was created; ileostomy bag in place and draining bilious fluid. - Patient is clinically improving (afebrile, HR down) - WBC trending down (from 12.79 to 11.9 today). Will continue to monitor - Patient perviously on IV antibiotics (Zosyn). Switched to oral antibiotics (augmentin) on 05/01/19 -H/H stable -Continue diabetic diet -Pelvic drains remain in place. Patient to go home with drains. -Pain controlled with Oxycodone 10 mg -Repeat imaging on 04/30/19 CXR: There is no pneumothorax. No consolidation is noted. There is no evidence for pulmonary edema. There is a trace right pleural effusion. Mild left basilar opacity favors atelectasis. Cardiomediastinal silhouette is unremarkable. CT Abd/Pelvis: IMPRESSION: 1. Status post creation of a right lower quadrant ileostomy and drainage of multiple abscesses. Significant improvement since CT of April 20, 2019. 4.4 x 3.1 cm left lower quadrant abdominal anterior fluid collection which has slightly decreased in size. This favors an abscess. No additional fluid collections. No bowel obstruction. Mesenteric and operative bed infiltration. Interval decrease in small bowel wall thickening. 2. Small right pleural effusion which is similar to prior exam. No pneumothorax identified. Right basilar opacity which favors atelectasis. Subjective POD#13. Site of bowel perforation was not identified during ex-lap procedure; ileostomy loop was created; ileostomy bag in place and draining bilious fluid. - Abdominal pain better controlled with 10 mg of oxycodone than 5 mg . - Patient is clinically improving (afebrile, HR down) - WBC trending down. Will continue to monitor - Patient previously on IV antibiotics (Zosyn) and converted to Augmentin on 05/01/19 -H/H stable -Continue diabetic diet -Pelvic drains remain in place. Physical Exam Respiratory: normal respiratory effort, lungs clear to auscultation Cardiovascular: Rate/Rhythm: regular rate and regular rhythm Gastrointestinal (Abdomen): Soft, obese, tender to palpation by drain sites. Incision: C/D/I with annalisa in place. Some drainage (clear yellow fluid) noted at the superior and inferior aspects of the incision site. No erythema or edema. Marta drain inside the incision removed on 05/03/19. Hematoma almost completely resolved around LLQ incision and mid-line vertical incision. Ostomy with bilious and more formed material . Pelvic drains in place with minimal serosanguineous fluid Results & Data Vital Signs (Past 12 Hours) Vital Signs Temp Pulse Resp BP BP Pulse Ox 05/04/19 07:49 36.4 C L 88 20 130/88 95 05/03/19 23:46 36.6 C 91 H 16 119/80 95
[2019-05-04] MEDS: INSULIN ASPART 100 UNITS/ML 3 ML PEN SC SCH ×4 (09:11→21:31)
[2019-05-04] MEDS: AMOXICILLIN/CLAVULANATE 875 MG TAB PO SCH ×2 (09:19→18:02)
[2019-05-04] MEDS: POTASSIUM CHLORIDE 20 MEQ TABCR PO SCH ×2 (09:20→20:06)
[2019-05-04] MEDS: FAMOTIDINE 20 MG TAB PO SCH ×2 (09:20→20:06)
--- NOTE | 2019-05-04 10:59 | Surgery Progress Note ---
Date of Service May 04, 2019 Assessment & Plan (1) Abdominal abscess: Postoperative day #13 status post oratory laparotomy with formation of ileostomy and drainage of abscess -vitals stable, afebrile - CT scan on 04/30 showed improvement of LLQ anterior intra-abdominal abscess and improvement of small bowel wall thickening - leukocytosis improving to 11.9K today - Abdominal pain better controlled today - H&H stable at 8.9/27.7 Plan: Continue 10 mg oxycodone immediate release prn severe pain Continue PO Antibiotics continue carb DM diet Continue darin drains will definitely need to go home with left darin drain continue OOB to chair and ambulation Continue SCDs and Heparin Continue medical management Continue incentive spirometry If pain better controlled, could consider discharge in near future with darin drain, home health nursing for ostomy care/teaching Dr. Zimmerman has seen and examined pt, agrees with above Subjective feeling better today pain better controlled with 10 mg of Oxycodone no n/v, tolerating diet Physical Exam Constitutional: WD/WN, vitals as above no acute distress Gastrointestinal (Abdomen): Inspection/Auscultation: + abdominal surgical drain present (Left drain with cloudy purulent drainage right drain serous slightly cloudy); abdomen not distended Percussion/Palpation: + abdomen tender (RUQ but vastly improved) and abdomen soft; no guarding and abdomen not rigid Ileostomy functioning Skin: no rashes, warm and dry Psychiatric: A+Ox3, euthymic affect Results & Data Vital Signs (Past 12 Hours) Vital Signs Temp Pulse Resp BP BP Pulse Ox 05/04/19 07:49 36.4 C L 88 20 130/88 95 05/03/19 23:46 36.6 C 91 H 16 119/80 95 Laboratory Results 05/04/19 05/04/19 05/04/19 Range/Units 07:57 05:35 05:35 WBC 11.90 H (4.8-10.8) K/uL RBC 3.50 L (4.2-5.4) M/uL Hgb 8.9 L (12.0-16.0) g/dL Hct 27.7 L (37-47) % MCV 79.1 L (80-100) fL MCH 25.4 (25-34) pg MCHC 32.1 (32-36) g/dL RDW Std Deviation 44.2 (36.4-46.3) fL RDW Coeff of Mine 15.3 H (11.5-14.5) % Plt Count 561 H (130-400) K/uL MPV 9.2 (7.4-10.4) fL Immature Gran % (Auto) 0.5 % Neut % (Auto) 71.3 % Lymph % (Auto) 13.1 % Gregory % (Auto) 8.0 % Eos % (Auto) 5.8 % Baso % (Auto) 1.3 % Immature Gran # (Auto) 0.06 H (0.00-0.02) K/uL Neut # (Auto) 8.49 H (1.4-6.5) K/uL Lymph # (Auto) 1.56 (1.2-3.4) K/uL Gregory # (Auto) 0.95 H (0.11-0.59) K/uL Eos # (Auto) 0.69 H (0-0.5) K/uL Baso # (Auto) 0.15 (0-0.2) K/uL Sodium 135 L (136-145) mmol/L Potassium 4.1 (3.5-5.1) mmol/L Chloride 103 (98-107) mmol/L Carbon Dioxide 24 (21-32) mmol/L Anion Gap 8.0 (3-11) BUN 22 H (7-18) mg/dl Creatinine 1.76 H (0.6-1.2) mg/dl Est Cr Clr Drug Dosing 50.5 ml/min Est GFR ( Amer) 40.9 Est GFR (Non-Af Amer) 35.3 BUN/Creatinine Ratio 12.7 (10-20) Glucose 121 H (70-99) mg/dl POC Glucose 127 H (70-99) Calcium 8.6 (8.5-10.1) mg/dl 05/03/19 05/03/19 05/03/19 Range/Units 20:42 17:32 12:37 WBC (4.8-10.8) K/uL RBC (4.2-5.4) M/uL Hgb (12.0-16.0) g/dL Hct (37-47) % MCV (80-100) fL MCH (25-34) pg MCHC (32-36) g/dL RDW Std Deviation (36.4-46.3) fL RDW Coeff of Mine (11.5-14.5) % Plt Count (130-400) K/uL MPV (7.4-10.4) fL Immature Gran % (Auto) % Neut % (Auto) % Lymph % (Auto) % Gregory % (Auto) % Eos % (Auto) % Baso % (Auto) % Immature Gran # (Auto) (0.00-0.02) K/uL Neut # (Auto) (1.4-6.5) K/uL Lymph # (Auto) (1.2-3.4) K/uL Gregory # (Auto) (0.11-0.59) K/uL Eos # (Auto) (0-0.5) K/uL Baso # (Auto) (0-0.2) K/uL Sodium (136-145) mmol/L Potassium (3.5-5.1) mmol/L Chloride (98-107) mmol/L Carbon Dioxide (21-32) mmol/L Anion Gap (3-11) BUN (7-18) mg/dl Creatinine (0.6-1.2) mg/dl Est Cr Clr Drug Dosing ml/min Est GFR ( Amer) Est GFR (Non-Af Amer) BUN/Creatinine Ratio (10-20) Glucose (70-99) mg/dl POC Glucose 145 H 110 H 112 H (70-99) Calcium (8.5-10.1) mg/dl 05/03/19 Range/Units 08:08 WBC (4.8-10.8) K/uL RBC (4.2-5.4) M/uL Hgb (12.0-16.0) g/dL Hct (37-47) % MCV (80-100) fL MCH (25-34) pg MCHC (32-36) g/dL RDW Std Deviation (36.4-46.3) fL RDW Coeff of Mine (11.5-14.5) % Plt Count (130-400) K/uL MPV (7.4-10.4) fL Immature Gran % (Auto) % Neut % (Auto) % Lymph % (Auto) % Gregory % (Auto) % Eos % (Auto) % Baso % (Auto) % Immature Gran # (Auto) (0.00-0.02) K/uL Neut # (Auto) (1.4-6.5) K/uL Lymph # (Auto) (1.2-3.4) K/uL Gregory # (Auto) (0.11-0.59) K/uL Eos # (Auto) (0-0.5) K/uL Baso # (Auto) (0-0.2) K/uL Sodium (136-145) mmol/L Potassium (3.5-5.1) mmol/L Chloride (98-107) mmol/L Carbon Dioxide (21-32) mmol/L Anion Gap (3-11) BUN (7-18) mg/dl Creatinine (0.6-1.2) mg/dl Est Cr Clr Drug Dosing ml/min Est GFR ( Amer) Est GFR (Non-Af Amer) BUN/Creatinine Ratio (10-20) Glucose (70-99) mg/dl POC Glucose 128 H (70-99) Calcium (8.5-10.1) mg/dl
--- NOTE | 2019-05-04 12:36 | Family Medicine Progress Note ---
Date of Service May 04, 2019 Assessment & Plan (1) Status post exploratory laparotomy: 39 yo F POD20 from elective laparoscopic hysterectomy with left oophorectomy complicated by abscess formation, POD14 from exploratory laparoscopy with diverting loop ileostomy creation. Post Op Multiple Abdominal abscesses, Status post ex lap and diverting ileostomy 04/20 - Patient clinically improving; WBC trending down at 11.9 today. - IV Vanc d/luis carlos on 04/27. Zosyn converted to PO Augmentin on 05/01. - repeat A/P CT 04/30 showed improvement (decreasing size) of known abscesses; no new abscesses noted. - Pain management with Acetaminophen 650mg Q4H, Oxycodone 5mg Q4H, Oxycodone 10mg Q4H PRN - pain well controlled. - Gen Surg on the case -Recommended continued pain control with above pain management medications. -Continue PO antibiotics -DARIN drains (L and R) will go home with patient -Once pain controlled consider d/c in near future with darin drain and home health nursing for ostomy care/teaching. -Marta drain in the incision removed on 05/03/19 -Ostomy site clean and dry. -Dietary consult placed for nutritional evaluation. -Zinc Sulfate 220mg PO BID ordered to assist wound healing, will adjust per Dietary's recommendation. -PT OT ordered. - expectant management STEFANY - pre-operative Cr was 0.69 on 04/08/19 - serum creatinine at 1.76 today - d/c of IV vancomycin on 04/27 - etiology AIN (related to renotoxic meds) vs. ATN (secondary to previous septic state). - Urine Na 46, FeNa of 2.7 suggestive of intrarenal etiology - urine eosinophils negative 04/29 - continue to monitor with daily BMPs UTI - urine culture grew Enterobacter sensitive to Zosyn (patient completed course of IV Zosyn) - converted to PO Augmentin Hydropneumothorax -Developed R sided hydropneunothorax during hospital stay first visualized on chest CT 04/20 prior to exploratory lap. -Etiology unclear -Chest tube was placed, fluid drained, and removed. -Fluid analysis of drainage was benign. -Chest XR 04/30 suggested resolution -Currently stable. Anemia -Baseline anemia prior to initial hysterectomy Hgb 10-10.5 -Hgb 8.9 today stable compared to yesterday -Only consider transfusion if hgb below 7. Preadmission - S/P Hysterectomy with L Oophorectomy As above Hypothyroid continue home does levothyroxine 75 mcg daily Depression -Continue home Paxil and Quetiapine. DVT PPX: Heparin 5,000 units, SQ, tid. Famotidine PO for stress ulcer prophylaxis. Fluids and nutrition: Diabetic diet Dispo: Floor CODE STATUS: Full (2) Abdominal abscess: (3) Acute kidney injury: (4) Hydropneumothorax: (5) Anemia: (6) Status post hysterectomy with oophorectomy: (7) Hypothyroid: (8) Depression: Supervising Physician Co-Signing Physician Notes Resident Physician Supervision Note: I independently interviewed and examined the patient and verified the mata history and physical, reviewed labs and image studies, discussed the case with the resident Dr. Carrera and agree with the findings and care plan. Subjective Patient examined and seen this morning at the bedside. She stated that she was feeling better today and that her pain was more well controlled while on the oxycodon 10mg. She described it as a 3/10 dull ache, primarily around the drains in her abdomen and in her mid low back. She denies any headache, nausea, vomiting, dyspnea, chest pain, or calf tenderness. Review of Systems Constitutional: no fever and no chills Eyes: no eye pain Ear, Nose, Mouth, Throat: no dizziness Respiratory: no cough, no dyspnea, no hemoptysis, no pain on inspiration and no wheezing Cardiovascular: no chest pain, no dyspnea and no palpitations Gastrointestinal: + abdominal pain (appropriate soreness in areas of drains); no nausea, no vomiting, no constipation and no diarrhea/loose stools Genitourinary: no dysuria, no urinary hesitancy and no hematuria Musculoskeletal: + back pain (low back pain ) Physical Exam Constitutional: well developed and well nourished; no acute distress and not i n distress Eyes: PERRL, conjunctivae normal, anicteric sclerae + anicteric sclerae Neck: trachea midline, no thyromegaly normal visual inspection, trachea midline and + thick neck Respiratory: normal respiratory effort; no respiratory distress, no cough and not tachypneic Auscultation: lungs clear to auscultation bilaterally; no diminished lung sounds and no wheezes Cardiovascular: Rate/Rhythm: regular rate and regular rhythm Heart Sounds: normal S1 and normal S2; no gallop, no murmur and no cardiac rub Vessels: nor mal peripheral pulses; no JVD Extremities: no calf tenderness Gastrointestinal (Abdomen): Inspection/Auscultation: normal bowel sounds, + abdominal surgical scar, + abdominal surgical incision (Slight 1cm dehiscence at the distal incision site) and + abdominal surgical drain present (Left darin drain cloudy/purulent, right minimal serous noted); abdomen not distended Percussion/Palpation: + abdomen tender (at incision and drain sites, appropri ate) and abdomen soft; no guarding and abdomen not rigid Musculoskeletal: Spine: normal cervical ROM and no pain with cervical ROM Skin: no rashes, warm and dry + pallor (generally looks pale, improved today vs yesterday) Neurologic: moves all extremities and awake Motor/Sensory: no sensory deficit Psychiatric: A+Ox3, euthymic affect Orientation: alert and oriented x 3 Results & Data Vital Signs (Past 12 Hours) Vital Signs Temp Pulse Resp BP Pulse Ox 05/04/19 11:12 36.8 C 92 H 20 130/86 95 05/04/19 07:49 36.4 C L 88 20 130/88 95 Laboratory Results Abnormal lab results 05/03/19 05/04/19 05/04/19 Range/Units 20:42 05:35 05:35 WBC 11.90 H (4.8-10.8) K/uL RBC 3.50 L (4.2-5.4) M/uL Hgb 8.9 L (12.0-16.0) g/dL Hct 27.7 L (37-47) % MCV 79.1 L (80-100) fL RDW Coeff of Mine 15.3 H (11.5-14.5) % Plt Count 561 H (130-400) K/uL Immature Gran # (Auto) 0.06 H (0.00-0.02) K/uL Neut # (Auto) 8.49 H (1.4-6.5) K/uL [place] # (Auto) 0.95 H (0.11-0.59) K/uL Eos # (Auto) 0.69 H (0-0.5) K/uL Sodium 135 L (136-145) mmol/L BUN 22 H (7-18) mg/dl Creatinine 1.76 H (0.6-1.2) mg/dl Glucose 121 H (70-99) mg/dl POC Glucose 145 H (70-99) Prealbumin (20-40) mg/dl 05/04/19 05/04/19 05/04/19 Range/Units 05:35 07:57 12:17 WBC (4.8-10.8) K/uL RBC (4.2-5.4) M/uL Hgb (12.0-16.0) g/dL Hct (37-47) % MCV (80-100) fL RDW Coeff of Mine (11.5-14.5) % Plt Count (130-400) K/uL Immature Gran # (Auto) (0.00-0.02) K/uL Neut # (Auto) (1.4-6.5) K/uL [place] # (Auto) (0.11-0.59) K/uL Eos # (Auto) (0-0.5) K/uL Sodium (136-145) mmol/L BUN (7-18) mg/dl Creatinine (0.6-1.2) mg/dl Glucose (70-99) mg/dl POC Glucose 127 H 108 H (70-99) Prealbumin 41.6 H (20-40) mg/dl 05/04/19 Range/Units 17:14 WBC (4.8-10.8) K/uL RBC (4.2-5.4) M/uL Hgb (12.0-16.0) g/dL Hct (37-47) % MCV (80-100) fL RDW Coeff of Mine (11.5-14.5) % Plt Count (130-400) K/uL Immature Gran # (Auto) (0.00-0.02) K/uL Neut # (Auto) (1.4-6.5) K/uL [place] # (Auto) (0.11-0.59) K/uL Eos # (Auto) (0-0.5) K/uL Sodium (136-145) mmol/L BUN (7-18) mg/dl Creatinine (0.6-1.2) mg/dl Glucose (70-99) mg/dl POC Glucose 109 H (70-99) Prealbumin (20-40) mg/dl Medications Administered Current Inpatient Medications Acetaminophen (Tylenol) 650 mg PO Q4H PRN PRN Reason: Pain or Fever Stop: 05/30/19 03:03 Last Admin: 05/02/19 05:37 Dose: 650 mg Documented by: Al Hydrox/Mg Hydrox/Simethicone (Maalox) 30 ml PO Q6 [facility] Stop: 05/23/19 21:39 Last Admin: 05/04/19 18:07 Dose: 30 ml Documented by: Amoxicillin/Clavulanate Potassium (Augmentin 875mg) 1 tab PO BIDM [facility] Stop: 05/11/19 16:59 Last Admin: 05/04/19 18:02 Dose: 1 tab Documented by: Dextrose (Dextrose 50%) 25 - 50 ml IV UD PRN; Protocol PRN Reason: Hypoglycemia Protocol Stop: 05/27/19 18:59 Famotidine (Pepcid) 20 mg PO BID [facility] Stop: 05/29/19 20:59 Last Admin: 05/04/19 09:20 Dose: 20 mg Documented by: Glucagon (Glucagen) 1 mg IM UD PRN; Protocol PRN Reason: Hypoglycemia Protocol Stop: 05/27/19 18:59 Glucose (Glucose 40%) 15 - 30 gm PO UD PRN; Protocol PRN Reason: Hypoglycemia Protocol Stop: 05/27/19 18:59 Glucose (Dex4 Glucose) 4 - 8 tabs PO UD PRN; Protocol PRN Reason: Hypoglycemia Protocol Stop: 05/27/19 18:59 Heparin Sodium (Porcine) (Heparin Sodium (Porcine)) 5,000 units SQ Q8 [facility] Stop: 05/30/19 13:59 Last Admin: 05/04/19 12:55 Dose: 5,000 units Documented by: Insulin Aspart (Novolog Flexpen) 0 units SC ACHS [facility] Stop: 05/30/19 16:29 Last Admin: 05/04/19 18:03 Dose: 3 units Documented by: Levothyroxine Sodium (Synthroid) 75 mcg PO DAILYBB [facility] Stop: 05/22/19 06:29 Last Admin: 05/04/19 05:15 Dose: 75 mcg Documented by: Miconazole Nitrate (Desenex) 1 appln EXT PRN PRN PRN Reason: ABDOMINAL FOLDS Stop: 06/03/19 14:36 Last Admin: 05/04/19 16:30 Dose: 1 appln Documented by: Miscellaneous (Carbohydrates For Hypoglycemia) 15 - 30 gm PO UD PRN PRN Reason: Hypoglycemia Treatment Stop: 05/27/19 18:59 Ondansetron HCl (Zofran) 4 mg IV Q6H PRN PRN Reason: Nausea And Vomiting Stop: 05/19/19 20:00 Last Admin: 05/02/19 18:23 Dose: 4 mg Documented by: Oxycodone HCl (Roxicodone Immediate Rel) 5 mg PO Q4H PRN PRN Reason: Pain Stop: 05/16/19 17:31 Last Admin: 05/03/19 13:13 Dose: 5 mg Documented by: Oxycodone HCl (Roxicodone Immediate Rel) 10 mg PO Q4H PRN PRN Reason: Severe Pain Stop: 05/17/19 15:01 Last Admin: 05/04/19 18:01 Dose: 10 mg Documented by: Paroxetine HCl (Paxil) 40 mg PO HS JANICE Stop: 05/21/19 20:59 Last Admin: 05/03/19 21:14 Dose: 40 mg Documented by: Potassium Chloride (Klor-Con M20) 20 meq PO BID JANICE Stop: 05/25/19 20:59 Last Admin: 05/04/19 09:20 Dose: 20 meq Documented by: Quetiapine Fumarate (Seroquel) 200 mg PO HS JANICE Stop: 05/21/19 20:59 Last Admin: 05/03/19 21:14 Dose: 200 mg Documented by: Topiramate (Topamax) 100 mg PO HS JANICE Stop: 05/21/19 20:59 Last Admin: 05/03/19 21:14 Dose: 100 mg Documented by: Zinc Sulfate (Zinc Sulfate) 220 mg PO BID JANICE Stop: 06/03/19 20:59 PG Care Time/CCT Total # of Minutes Spent Total Time Spent with Patient: Total time spent is greater than 50% in coordination of care (as documented) at patient's floor/unit and/or counseling patient:
[2019-05-04] MEDS ORDERED: NURSING DECISION MEDICATION ONE (14:33)
[2019-05-04] MEDS ORDERED: MICONAZOLE NITRATE POWDER 43 GM EXT PRN (14:37)
[2019-05-04] MEDS: ZINC SULFATE 220 MG CAPSULE PO SCH (20:05)
[2019-05-04] MEDS: TOPIRAMATE 100 MG TAB PO SCH (20:05)
[2019-05-04] MEDS: PARoxetine HCl 20 MG TAB PO SCH (20:06)
[2019-05-04] MEDS: QUETIAPINE FUMARATE 200 MG TAB PO SCH (20:06)
[2019-05-05] MEDS: OXYCODONE HCL IR 5 MG TAB (IMMEDIATE RELEASE) PO PRN ×5 (05:21→21:46)
[2019-05-05] MEDS: HEPARIN SOD 5,000 UNIT/0.5 ML VIAL SQ SCH ×3 (05:21→21:47)
[2019-05-05] MEDS: ALUMINUM/MAGNESIUM SUSP 30 ML UDC PO SCH ×4 (05:21→23:23)
[2019-05-05] MEDS: LEVOTHYROXINE SODIUM 75 MCG TABLET PO SCH (05:21)
[2019-05-05 06:47] LABS: Calcium 9.6 mg/dl (8.5-10.1); Creatinine Clr Calc Pharmacy 48.8 ml/min; Est GFR (African American) 39.3; Est GFR (Non-African American) 33.9; Potassium 4.3 mmol/L (3.5-5.1)
--- NOTE | 2019-05-05 07:38 | Surgery Progress Note ---
Date of Service May 05, 2019 Assessment & Plan (1) Status post exploratory laparotomy: POD#14. Site of bowel perforation was not identified during ex-lap procedure; ileostomy loop was created; ileostomy bag in place and draining bilious fluid. - Patient is clinically improving (afebrile, HR down) - WBC trending down (from 12.79 to 11.9 05/04/19). No new labs. - Patient perviously on IV antibiotics (Zosyn). Switched to oral antibiotics (augmentin) on 05/01/19 -H/H stable -Continue diabetic diet -Pelvic drains remain in place. Patient to go home with drains. -Pain controlled with Oxycodone 10 mg -Yeast in abdominal fold: antifungal creme prescribed. -Repeat imaging on 04/30/19 CXR: There is no pneumothorax. No consolidation is noted. There is no evidence for pulmonary edema. There is a trace right pleural effusion. Mild left basilar opacity favors atelectasis. Cardiomediastinal silhouette is unremarkable. CT Abd/Pelvis: IMPRESSION: 1. Status post creation of a right lower quadrant ileostomy and drainage of multiple abscesses. Significant improvement since CT of April 20, 2019. 4.4 x 3.1 cm left lower quadrant abdominal anterior fluid collection which has slightly decreased in size. This favors an abscess. No additional fluid collections. No bowel obstruction. Mesenteric and operative bed infiltration. Interval decrease in small bowel wall thickening. 2. Small right pleural effusion which is similar to prior exam. No pneumothorax identified. Right basilar opacity which favors atelectasis. Subjective POD#14. Site of bowel perforation was not identified during ex-lap procedure; ileostomy loop was created; ileostomy bag in place and draining bilious fluid. - Abdominal pain better controlled with 10 mg of oxycodon . - Patient is clinically improving (afebrile, HR down) - WBC trending down. No labs today. Will continue to monitor - Patient previously on IV antibiotics (Zosyn) and converted to Augmentin on 05/01/19 -H/H stable -Continue diabetic diet -Pelvic drains remain in place. Physical Exam Respiratory: normal respiratory effort, lungs clear to auscultation Cardiovascular: Rate/Rhythm: regular rate and regular rhythm Gastrointestinal (Abdomen): Soft, obese, tender to palpation by drain sites. Incision: C/D/I with annalisa in place. No erythema or edema. Marta drain inside the incision removed on 05/03/19. Hematoma almost completely resolved around LLQ incision and mid-line vertical incision. Ostomy with bilious and more formed material . Pelvic drains in place with minimal serosanguineous fluid. Yeast in the right lower quadrant abdominal fold. Results & Data Vital Signs (Past 12 Hours) Vital Signs Temp Pulse Resp BP Pulse Ox 05/05/19 07:18 36.8 C 87 16 121/78 93 05/04/19 23:10 36.3 C L 97 H 19 122/80 95
[2019-05-05] MEDS: ZINC SULFATE 220 MG CAPSULE PO SCH ×2 (09:08→20:32)
[2019-05-05] MEDS: POTASSIUM CHLORIDE 20 MEQ TABCR PO SCH ×2 (09:08→20:33)
[2019-05-05] MEDS: AMOXICILLIN/CLAVULANATE 875 MG TAB PO SCH ×2 (09:08→16:35)
[2019-05-05] MEDS: FAMOTIDINE 20 MG TAB PO SCH ×2 (09:08→20:31)
[2019-05-05] MEDS: INSULIN ASPART 100 UNITS/ML 3 ML PEN SC SCH ×4 (09:11→21:47)
--- NOTE | 2019-05-05 10:03 | Family Medicine Progress Note ---
Date of Service May 05, 2019 Assessment & Plan (1) Status post exploratory laparotomy: 39 yo F s/p elective laparoscopic hysterectomy with left oophorectomy on 04/16/19 complicated by abscess formation, s/p exploratory laparoscopy with diverting loop ileostomy creation on 04/20/19. Post Op Multiple Abdominal abscesses, Status post ex lap and diverting ileostomy 04/20 - Patient clinically improving; WBC trending down at 11.9 on 05/04/19. - IV Vanc d/luis carlos on 04/27. Zosyn converted to PO Augmentin on 05/01, patient tolerating PO antibiotic well. - repeat A/P CT 04/30 showed improvement (decreasing size) of known abscesses; no new abscesses noted. - Pain management with Acetaminophen 650mg Q4H, Oxycodone 5mg Q4H, Oxycodone 10mg Q4H PRN - pain well controlled. - Gen Surg on the case -Recommended continued pain control with above pain management medications. -Continue PO antibiotics -DARIN drains (L and R) will go home with patient -Once pain controlled consider d/c in near future with darin drain and home health nursing for ostomy care/teaching. -[place] drain in the incision removed on 05/03/19 -Ostomy site clean and dry. -Dietary consult placed for nutritional evaluation - recommended low fiber diet and to continue Zinc Sulfate as prescribed. -Zinc Sulfate 220mg PO BID ordered to assist wound healing, will adjust per Dietary's recommendation. -PT OT ordered- awaiting evaluation. - expectant management STEFANY - ATN/AIN - pre-operative Cr was 0.69 on 04/08/19 - serum creatinine at 1.82 today, up from 1.76 the day prior, will continue to monitor. - d/c of IV vancomycin on 04/27 - Patient drinking fluids and voiding appropriately. - continue to monitor with daily BMPs UTI - urine culture grew Enterobacter sensitive to Zosyn (patient completed course of IV Zosyn) - converted to PO Augmentin Hydropneumothorax -Developed R sided hydropneunothorax during hospital stay first visualized on chest CT 04/20 prior to exploratory lap. -Etiology unclear -Chest tube was placed, fluid drained, and removed. -Fluid analysis of drainage was benign. -Chest XR 04/30 suggested resolution -Currently stable. Anemia -Baseline anemia prior to initial hysterectomy Hgb 10-10.5 -Hgb 8.9 05/04/19 stable. -Only consider transfusion if hgb below 7. Preadmission - S/P Hysterectomy with L Oophorectomy 04/16/19 As above Hypothyroid continue home dose levothyroxine 75 mcg daily Depression -Continue home Paxil and Quetiapine. DVT PPX: Heparin 5,000 units, SQ, tid. Famotidine PO for stress ulcer prophylaxis. Fluids and nutrition: Diabetic diet and Low Fiber Dispo: Floor (2) Abdominal abscess: (3) Acute kidney injury: (4) Hydropneumothorax: (5) Anemia: (6) Status post hysterectomy with oophorectomy: (7) Hypothyroid: (8) Depression: Supervising Physician Co-Signing Physician Notes Resident Physician Supervision Note: I independently interviewed and examined the patient and verified the mata history and physical, reviewed labs and image studies, discussed the case with the resident Dr. Carrera and agree with the findings and care plan. Subjective Patient examined at the bedside this morning. States she is feeling well. Notes 3/10 dull aching pain in her abdomen along the suture line and drains. Notes that nutrition saw her this morning and recommend a low fiber diet and to continue the zinc. No other complaints at this time. Denies NVD, sob, chest pain, calf pain. Review of Systems Constitutional: no fever and no chills Eyes: no eye pain Ear, Nose, Mouth, Throat: no dizziness Respiratory: no cough, no dyspnea, no hemoptysis, no pain on inspiration and no wheezing Cardiovascular: no chest pain, no dyspnea and no palpitations Gastrointestinal: + abdominal pain (appropriate soreness in areas of drains); no nausea, no vomiting, no constipation and no diarrhea/loose stools Genitourinary: no dysuria, no urinary hesitancy and no hematuria Musculoskeletal: + back pain (low back pain ) Physical Exam Constitutional: well developed and well nourished; no acute distress and not in distress Eyes: PERRL, conjunctivae normal, anicteric sclerae + anicteric sclerae Neck: trachea midline, no thyromegaly normal visual inspection, trachea midline and + thick neck Respiratory: normal respiratory effort; no respiratory distress, no cough and not tachypneic Auscultation: lungs clear to auscultation bilaterally; no diminished lung sounds and no wheezes Cardiovascular: Rate/Rhythm: regular rate and regular rhythm Heart Sounds: normal S1 and normal S2; no gallop, no murmur and no cardiac rub Vessels: n ormal peripheral pulses; no JVD Extremities: no calf tenderness Gastrointestinal (Abdomen): Inspection/Auscultation: normal bowel sounds, + abdominal surgical scar, + abdominal surgical incision (Slight 1cm dehiscence at the distal incision site where anton drain was ) and + abdominal surgical drain present (Left darin drain milky fluid, right minimal serous noted); abdomen not distended Percussion/Palpation: + abdomen tender (at incision and drain sites, appropriate) and abdomen soft; no guarding and abdomen not rigid Musculoskeletal: Spine: normal cervical ROM and no pain with cervical ROM Skin: no rashes, warm and dry + pallor (generally looks pale, improved today vs yesterday) Neurologic: moves all extremities and awake Motor/Sensory: no sensory deficit Psychiatric: A+Ox3, euthymic affect Orientation: alert and oriented x 3 Results & Data Vital Signs (Past 12 Hours) Vital Signs Temp Pulse Resp BP Pulse Ox 05/05/19 07:18 36.8 C 87 16 121/78 93 05/04/19 23:10 36.3 C L 97 H 19 122/80 95 Laboratory Results Abnormal lab results 05/04/19 05/04/19 05/04/19 Range/Units 05:35 12:17 17:14 Sodium (136-145) mmol/L BUN (7-18) mg/dl Creatinine (0.6-1.2) mg/dl Glucose (70-99) mg/dl POC Glucose 108 H 109 H (70-99) Prealbumin 41.6 H (20-40) mg/dl 05/04/19 05/05/19 05/05/19 Range/Units 20:44 05:44 08:20 Sodium 134 L (136-145) mmol/L BUN 25 H (7-18) mg/dl Creatinine 1.82 H (0.6-1.2) mg/dl Glucose 128 H (70-99) mg/dl POC Glucose 140 H 124 H (70-99) Prealbumin (20-40) mg/dl Medications Administered Current Inpatient Medications Acetaminophen (Tylenol) 650 mg PO Q4H PRN PRN Reason: Pain or Fever Stop: 05/30/19 03:03 Last Admin: 05/02/19 05:37 Dose: 650 mg Documented by: Al Hydrox/Mg Hydrox/Simethicone (Maalox) 30 ml PO Q6 [facility] Stop: 05/23/19 21:39 Last Admin: 05/05/19 05:21 Dose: 30 ml Documented by: Amoxicillin/Clavulanate Potassium (Augmentin 875mg) 1 tab PO BIDM [facility] Stop: 05/11/19 16:59 Last Admin: 05/05/19 09:08 Dose: 1 tab Documented by: Dextrose (Dextrose 50%) 25 - 50 ml IV UD PRN; Protocol PRN Reason: Hypoglycemia Protocol Stop: 05/27/19 18:59 Famotidine (Pepcid) 20 mg PO BID [facility] Stop: 05/29/19 20:59 Last Admin: 05/05/19 09:08 Dose: 20 mg Documented by: Glucagon (Glucagen) 1 mg IM UD PRN; Protocol PRN Reason: Hypoglycemia Protocol Stop: 05/27/19 18:59 Glucose (Glucose 40%) 15 - 30 gm PO UD PRN; Protocol PRN Reason: Hypoglycemia Protocol Stop: 05/27/19 18:59 Glucose (Dex4 Glucose) 4 - 8 tabs PO UD PRN; Protocol PRN Reason: Hypoglycemia Protocol Stop: 05/27/19 18:59 Heparin Sodium (Porcine) (Heparin Sodium (Porcine)) 5,000 units SQ Q8 [facility] Stop: 05/30/19 13:59 Last Admin: 05/05/19 05:21 Dose: 5,000 units Documented by: Insulin Aspart (Novolog Flexpen) 0 units SC ACHS [facility] Stop: 05/30/19 16:29 Last Admin: 05/05/19 09:11 Dose: 3 units Documented by: Levothyroxine Sodium (Synthroid) 75 mcg PO DAILYBB [facility] Stop: 05/22/19 06:29 Last Admin: 05/05/19 05:21 Dose: 75 mcg Documented by: Miconazole Nitrate (Desenex) 1 appln EXT PRN PRN PRN Reason: ABDOMINAL FOLDS Stop: 06/03/19 14:36 Last Admin: 05/04/19 16:30 Dose: 1 appln Documented by: Miscellaneous (Carbohydrates For Hypoglycemia) 15 - 30 gm PO UD PRN PRN Reason: Hypoglycemia Treatment Stop: 05/27/19 18:59 Ondansetron HCl (Zofran) 4 mg IV Q6H PRN PRN Reason: Nausea And Vomiting Stop: 05/19/19 20:00 Last Admin: 05/02/19 18:23 Dose: 4 mg Documented by: Oxycodone HCl (Roxicodone Immediate Rel) 5 mg PO Q4H PRN PRN Reason: Pain Stop: 05/16/19 17:31 Last Admin: 05/03/19 13:13 Dose: 5 mg Documented by: Oxycodone HCl (Roxicodone Immediate Rel) 10 mg PO Q4H PRN PRN Reason: Severe Pain Stop: 05/17/19 15:01 Last Admin: 05/05/19 09:14 Dose: 10 mg Documented by: Paroxetine HCl (Paxil) 40 mg PO [facility] Stop: 05/21/19 20:59 Last Admin: 05/04/19 20:06 Dose: 40 mg Documented by: Potassium Chloride (Klor-Con M20) 20 meq PO BID [facility] Stop: 05/25/19 20:59 Last Admin: 05/05/19 09:08 Dose: 20 meq Documented by: Quetiapine Fumarate (Seroquel) 200 mg PO [facility] Stop: 05/21/19 20:59 Last Admin: 05/04/19 20:06 Dose: 200 mg Documented by: Topiramate (Topamax) 100 mg PO [facility] Stop: 05/21/19 20:59 Last Admin: 05/04/19 20:05 Dose: 100 mg Documented by: Zinc Sulfate (Zinc Sulfate) 220 mg PO BID [facility] Stop: 06/03/19 20:59 Last Admin: 05/05/19 09:08 Dose: 220 mg Documented by: PG Care Time/CCT Total # of Minutes Spent Total Time Spent with Patient: Total time spent is greater than 50% in coordination of care (as documented) at patient's floor/unit and/or counseling patient: Resident Activity Tracking Resident Involvement: Resident Care Provided Care Provided: Adult Hospital Medicine
--- NOTE | 2019-05-05 11:31 | Surgery Progress Note ---
Date of Service May 05, 2019 Assessment & Plan (1) Abdominal abscess: Postoperative day #14 status post exploratory laparotomy with formation of ileostomy and drainage of abscess -vitals stable, afebrile - CT scan on 04/30 showed improvement of LLQ anterior intra-abdominal abscess and improvement of small bowel wall thickening - Abdominal pain better controlled today Plan: Continue 10 mg oxycodone immediate release prn severe pain, need to try to decrease frequency of the 10 mg of Oxycodone. 5 mg of Oxycodone for moderate pain is ordered Continue PO Antibiotics continue carb DM diet Continue darin drains will definitely need to go home with left darin drain continue OOB to chair and ambulation Continue SCDs and Heparin Continue medical management Continue incentive spirometry If pain better controlled, could consider discharge in near future with darin drain, home health nursing for ostomy care/teaching Dr. Zimmerman has seen and examined pt, agrees with above. Subjective feeling better today than yesterday pain better but still requiring 10 of Oxycodone every 4 hours ambulating and urinating without difficulty tolerating regular diet ostomy still functioning Physical Exam Constitutional: WD/WN, vitals as above no acute distress Gastrointestinal (Abdomen): Inspection/Auscultation: + abdominal surgical incision (Midline incision with annalisa present, inferior aspect of incision opened) and + abdominal surgical drain present (Left and right darin drains cloudy, minimal output); abdomen not distended Percussion/Palpation: + abdomen tender (LLQ at drain site and midline incision) and abdomen soft; no guarding and abdomen not rigid Skin: no rashes, warm and dry Psychiatric: A+Ox3, euthymic affect Results & Data Vital Signs (Past 12 Hours) Vital Signs Temp Pulse Resp BP Pulse Ox 05/05/19 07:18 36.8 C 87 16 121/78 93 Laboratory Results 05/05/19 05/05/19 05/04/19 Range/Units 08:20 05:44 20:44 Sodium 134 L (136-145) mmol/L Potassium 4.3 (3.5-5.1) mmol/L Chloride 100 (98-107) mmol/L Carbon Dioxide 25 (21-32) mmol/L Anion Gap 9.0 (3-11) BUN 25 H (7-18) mg/dl Creatinine 1.82 H (0.6-1.2) mg/dl Est Cr Clr Drug Dosing 48.8 ml/min Est GFR ( Amer) 39.3 Est GFR (Non-Af Amer) 33.9 BUN/Creatinine Ratio 14.0 (10-20) Glucose 128 H (70-99) mg/dl POC Glucose 124 H 140 H (70-99) Calcium 9.6 (8.5-10.1) mg/dl Prealbumin (20-40) mg/dl 05/04/19 05/04/19 05/04/19 Range/Units 17:14 12:17 05:35 Sodium (136-145) mmol/L Potassium (3.5-5.1) mmol/L Chloride (98-107) mmol/L Carbon Dioxide (21-32) mmol/L Anion Gap (3-11) BUN (7-18) mg/dl Creatinine (0.6-1.2) mg/dl Est Cr Clr Drug Dosing ml/min Est GFR ( Amer) Est GFR (Non-Af Amer) BUN/Creatinine Ratio (10-20) Glucose (70-99) mg/dl POC Glucose 109 H 108 H (70-99) Calcium (8.5-10.1) mg/dl Prealbumin 41.6 H (20-40) mg/dl
[2019-05-05] MEDS: PARoxetine HCl 20 MG TAB PO SCH (20:31)
[2019-05-05] MEDS: QUETIAPINE FUMARATE 200 MG TAB PO SCH (20:31)
[2019-05-05] MEDS: TOPIRAMATE 100 MG TAB PO SCH (20:32)
[2019-05-06] MEDS: ALUMINUM/MAGNESIUM SUSP 30 ML UDC PO SCH ×3 (05:56→18:04)
[2019-05-06] MEDS: LEVOTHYROXINE SODIUM 75 MCG TABLET PO SCH (05:56)
[2019-05-06] MEDS: HEPARIN SOD 5,000 UNIT/0.5 ML VIAL SQ SCH ×3 (05:57→21:24)
[2019-05-06] MEDS: OXYCODONE HCL IR 5 MG TAB (IMMEDIATE RELEASE) PO PRN ×4 (05:57→21:15)
[2019-05-06 06:53] LABS: BUN Creatinine Ratio 13.5 (10-20); Calcium 9.1 mg/dl (8.5-10.1); Creatinine Clr Calc Pharmacy 44.4 ml/min; Est GFR (African American) 35.1; Est GFR (Non-African American) 30.2; Potassium 4.2 mmol/L (3.5-5.1)
--- NOTE | 2019-05-06 08:49 | XRay Report ---
SINGLE VIEW CHEST CLINICAL HISTORY: Pleural effusion. FINDINGS: 2 AP, portable, upright chest radiographs are compared to study dated 04/30/2019. Correlati on is made with abdominal CT dated 04/30/2019. The cardiomediastinal silhouette is unremarkable. Ther e are low lung volumes. Small pleural effusions are identified, right larger left with bibasilar airs pace opacities. No pneumothorax is seen. The bony thorax is grossly intact. IMPRESSION: 1. Low lung volumes. 2. There are small pleural effusions, right larger left with associated bibasilar airspace opacities. This likely represents atelectasis. Clinical correlation will be required. Electronically signed by: Tanmay Rodriguez M.D. 05/06/2019 8:47 AM
[2019-05-06] MEDS: INSULIN ASPART 100 UNITS/ML 3 ML PEN SC SCH ×4 (09:13→21:24)
[2019-05-06] MEDS: FAMOTIDINE 20 MG TAB PO SCH ×2 (09:19→21:15)
[2019-05-06] MEDS: POTASSIUM CHLORIDE 20 MEQ TABCR PO SCH ×2 (09:19→21:15)
[2019-05-06] MEDS: ZINC SULFATE 220 MG CAPSULE PO SCH ×2 (09:19→21:15)
[2019-05-06] MEDS: AMOXICILLIN/CLAVULANATE 875 MG TAB PO SCH ×2 (10:31→18:01)
--- NOTE | 2019-05-06 10:35 | Gynecologic Progress Note ---
Date of Service May 06, 2019 Assessment & Plan (1) Status post exploratory laparotomy: POD#15. Site of bowel perforation was not identified during ex-lap procedure; ileostomy loop was created; ileostomy bag in place and draining bilious fluid. - Patient is clinically improving (afebrile, HR down) - Pt continues to tolerate oral antibiotics (augmentin), began on 05/01/19 -Continue diabetic diet -Pelvic drains remain in place. Patient to go home with drains. -Pain controlled with Oxycodone 10 mg -Yeast in abdominal fold: antifungal creme prescribed, d/c powder. -Raising Cr level: Nephrology consulted and following labs, input and outputs. Subjective Status post exploratory laparotomy: POD #15. Site of bowel perforation was not identified during ex-lap procedure; ileostomy loop was created; ileostomy bag in place and draining soft components mixed with bilious fluid. -Patient continues to clinically improve, afebrile, normal HR -Patient tolerating regular diet without nausea or vomiting. -Last WBC 05/04/19 at 11.9. No new labs -Pelvic drains in place, right with minimal output, right with small amounts of cloudy drainage -Patient doing well on oral antibiotics (augmentin), since 05/01/19 -Pain is controlled with Oxycodone 10 mg, has begun spacing out doses. She reports pain is located along right side, and dull. -Patient continues with beefy red rash of groin, and under panus, with tenderness. She dislikes powder as she feels this causes more burning. She would like to try a cream. Review of Systems Review of Systems: All systems reviewed & are unremarkable except as noted in HPI & below Physical Exam Constitutional: WD/WN, vitals as above Respiratory: normal respiratory effort Cardiovascular: Vessels: normal peripheral pulses Extremities: normal capillary refill; no calf tenderness and no pedal edema Chest (Breasts): Chest: normal inspection of chest Gastrointestinal (Abdomen): Inspection/Auscultation: abdomen normal to inspection Percussion/Palpation: + abdomen tender and abdomen soft; no guarding, abdomen not rigid, no hepatomegaly and no splenomegaly pelvic drains in place, ostomy site without erythema, soft solid components and bilious fluid in bag Musculoskeletal: Extremities: extremities normal to inspection Skin: + rash beefy red rash of bilateral groin and under pannus, with satellite lesion Psychiatric: Orientation: alert Genitourinary: no external lesions, no external swelling and no external erythema Results & Data Vital Signs (Past 12 Hours) Vital Signs Temp Pulse Resp BP BP Pulse Ox 05/06/19 07:26 36.3 C L 98 H 20 132/82 94 05/05/19 23:10 37.1 C 95 H 16 119/80 95
--- NOTE | 2019-05-06 10:41 | Nephrology Consultation ---
Date of Consultation May 06, 2019 Assessment & Plan (1) Acute kidney injury: 39-year-old female with acute kidney injury in the setting of sepsis related to abdominal abscesses following complicated laparoscopic during hysterectomy with lysis of adhesions. Medical history also notable for diabetes mellitus which is treated with metformin. Hospital course complicated by acute blood loss anemia requiring packed red blood cell transfusion support. Noncontrast CT scan the abdomen and pelvis was updated on April 30. There is no evidence of obstruction. Urine studies are bland with acellular microscopy. Patient's clinical presentation is consistent with ATN versus AIN. Her volume status is euvolemic. Her blood pressures appropriate. Electrolytes are within normal limits. There is no emergent indication for hemodialysis. Medications are appropriately dosed for kidney function. She remains on amoxicillin. At this time no additional changes were made. We will continue with close perspective monitoring. Please document input and output. Patient does not seem to have high output through her ostomy. Her appetite is good and her oral intake is appropriate. I will repeat a metabolic profile tomorrow morning follow-up at that time. He (2) Diabetes: (3) S/P ileostomy: (4) Status post exploratory laparotomy: (5) Abdominal abscess: (6) Status post hysterectomy with oophorectomy: History of Present Illness Reason for Consultation: STEFANY Requesting Physician: Taisha Chaudhary MD Attending Physician: Taisha Chaudhary MD History of Present Illness Marleny Woody is a 39-year-old female with acute kidney injury. Baseline serum creatinine less than 1 milligram/deciliter. Serum creatinine has been rising since approximately April 25. Creatinine is now 2.0 milligrams/deciliter. The patient is nonoliguric. Electrolytes are otherwise acceptable. CT scan obtained on April 30 was reviewed. There is no evidence of kidney obstruction. Urinalysis has been bland with acellular microscopy. Patient underwent laparoscopic hysterectomy on April 16. Surgery included extensive lysis of adhesions as well as right salpingectomy. She was discharged home postoperative day 2. Unfortunately, she returned to the hospital with sepsis post hospital day 4. The patient was readmitted and underwent exploratory laparotomy for abdominal abscesses. This included placement of abdominal drains. She was treated with IV Zosyn and vancomycin. Antibiotics have been converted to p.o. amoxicillin for suspected urinary tract infection. Clinically the patient is improving. Unfortunately, creatinine continues to rise. Allergies Allergy/AdvReac Type Severity Reaction Status Date / Time morphine AdvReac Intermediate NAUSEA Verified 04/19/19 20:41 VOMITING Home Medications Home Medications Medication Instructions Recorded Confirmed Type fluticasone propionate [Flonase 1 spray INTRANASAL QAM 04/02/19 04/19/19 History Allergy Relief] omeprazole 40 mg PO QAM 04/02/19 04/19/19 History paroxetine HCl [Paxil] 40 mg PO HS 04/02/19 04/19/19 History quetiapine [Seroquel] 200 mg PO HS 04/02/19 04/19/19 History topiramate 100 mg PO HS 04/02/19 04/19/19 History docusate sodium [Colace] 100 mg PO BID #30 cap 04/16/19 04/19/19 Rx oxycodone-acetaminophen [Percocet] 1 tab PO Q4H PRN #14 tab 04/16/19 04/19/19 Rx acetaminophen 650 mg PO Q6H PRN 04/18/19 04/19/19 History ibuprofen 600 mg PO Q6H PRN 04/18/19 04/19/19 History ondansetron HCl [Zofran] 4 mg PO Q6H #10 tab 04/18/19 04/19/19 Rx oxycodone 5 mg PO Q6H PRN #14 tab 04/18/19 04/19/19 Rx simethicone 80 mg PO PCHS PRN 04/18/19 04/19/19 History levothyroxine 75 mcg capsule 75 mcg PO QAM #90 cap 04/29/19 Rx metformin 500 mg tablet 500 mg PO BID #180 tab 04/29/19 Rx Patient History Medical History Depression Diabetes mellitus, type 2 NIDDM GERD (gastroesophageal reflux disease) controlled Hypothyroidism Obesity Surgical History H/O oophorectomy RIGHT History of hysterectomy History of laparotomy OVARIAN CYSTECTOMY Family History Grandmother (Maternal) Family history of diabetes mellitus Grandmother (Paternal) Family history of diabetes mellitus Grandfather (Paternal) Family history of esophageal cancer Social History Preferred Language: Moldovan 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: Effective Patch Driller Required: No Beliefs That Will Affect Care: None marital status: Current Living Situation: Spouse current occupational status: employed Feels Safe at Home: Yes Safety Concerns: Feels Safe At This Time Smoking Status: Never smoker Second Hand Exposure: No ; Hx Alcohol Use: No Hx Substance Use: No Dental Care, Regularly: Yes Seatbelt Use: always Sunscreen Use: Yes Review of Systems Review of Systems: All systems reviewed & are unremarkable except as noted in HPI & below Physical Exam Constitutional: well developed; no acute distress Eyes: + anicteric sclerae; no conjunctival abnormality and no scleral abnormality ENMT: Mouth: no oral mucosal abnormality and oral mucous membranes not dry Neck: normal visual inspection and trachea midline Respiratory: normal respiratory effort Auscultation: lungs clear to auscultation bilaterally Cardiovascular: Rate/Rhythm: regular rate Heart Sounds: normal S1 and normal S2 Vessels: no JVD Extremities: no edema Gastrointestinal (Abdomen): Inspection/Auscultation: + abdominal surgical incision and + abdominal surgical drain present Percussion/Palpation: abdomen soft; no guarding Ileostomy with liquid stool. Musculoskeletal: Extremities: no cyanosis and no clubbing Skin: normal turgor; no lesions Neurologic: Motor/Sensory: no tremor and no asterixis Psychiatric: Orientation: alert and oriented x 3 Results & Data Vital Signs (Past 12 Hours) Vital Signs Temp Pulse Resp BP BP Pulse Ox 05/06/19 07:26 36.3 C L 98 H 20 132/82 94 05/05/19 23:10 37.1 C 95 H 16 119/80 95 Laboratory Results Laboratory Results - last 24 hr 05/05/19 05/05/19 05/05/19 12:08 17:11 20:51 Sodium Potassium Chloride Carbon Dioxide Anion Gap BUN Creatinine Est Cr Clr Drug Dosing Est GFR ( Amer) Est GFR (Non-Af Amer) BUN/Creatinine Ratio Glucose POC Glucose 116 H 85 123 H Calcium 05/06/19 05/06/19 05:34 08:12 Sodium 132 L Potassium 4.2 Chloride 99 Carbon Dioxide 25 Anion Gap 8.0 BUN 27 H Creatinine 2.00 H Est Cr Clr Drug Dosing 44.4 Est GFR ( Amer) 35.1 Est GFR (Non-Af Amer) 30.2 BUN/Creatinine Ratio 13.5 Glucose 139 H POC Glucose 129 H Calcium 9.1 PG Care Time/CCT Total # of Minutes Spent Total Time Spent with Patient: Total time spent is greater than 50% in coordination of care (as documented) at patient's floor/unit and/or counseling patient: (1) Diabetes Diabetes mellitus complication status: with other specified complication Diabetes mellitus terminal computer operator insulin use: unspecified terminal computer operator insulin use status Diabetes mellitus type: other specified (including RADHA) Qualified Code(s): E13.69 - Other specified diabetes mellitus with other specified complic ation
--- NOTE | 2019-05-06 10:51 | Family Medicine Progress Note ---
Date of Service May 06, 2019 Assessment & Plan (1) Status post exploratory laparotomy: 39 yo F s/p elective laparoscopic hysterectomy with left oophorectomy on 04/16/19 complicated by abscess formation, s/p exploratory laparoscopy with diverting loop ileostomy creation on 04/20/19. Post Op Multiple Abdominal abscesses, Status post ex lap and diverting ileostomy 04/20 - Patient clinically improving; WBC trending down at 11.9 on 05/04/19. - IV Vanc d/luis carlos on 04/27. Zosyn converted to PO Augmentin on 05/01, patient tolerating PO antibiotic well. - repeat A/P CT 04/30 showed improvement (decreasing size) of known abscesses; no new abscesses noted. - Pain management with Acetaminophen 650mg Q4H, Oxycodone 5mg Q4H, Oxycodone 10mg Q4H PRN -Discussed with patient about using less of the Oxycodone 10mg and instead using Oxycodone 5mg with Acetaminophen. - Gen Surg on the case -Recommended continued pain control - attempt to wean from the 10mg Oxycodone. -Continue PO antibiotics -DARIN drains (L and R) will go home with patient -Once pain controlled consider d/c in near future with darin drain and home health nursing for ostomy care/teaching. -[place] drain in the incision removed on 05/03/19 -Ostomy site clean and dry. -Dietary consult placed for nutritional evaluation - recommended low fiber diet and to continue Zinc Sulfate as prescribed. -Zinc Sulfate 220mg PO BID ordered to assist wound healing, will adjust per Dietary's recommendation. -PT OT ordered - expectant management STEFANY - ATN/AIN - pre-operative Cr was 0.69 on 04/08/19 - serum creatinine at 2.00 today, up from 1.82 the day prior - Nephrology consulted, appreciate recs - d/c of IV vancomycin on 04/27 - Patient drinking fluids and voiding appropriately. - Strict I and O's - continue to monitor with daily BMPs UTI - urine culture grew Enterobacter sensitive to Zosyn (patient completed course of IV Zosyn) - converted to PO Augmentin Hydropneumothorax -Developed R sided hydropneunothorax during hospital stay first visualized on chest CT 04/20 prior to exploratory lap. -Etiology unclear -Chest tube was placed, fluid drained, and removed. -Fluid analysis of drainage was benign. -Chest XR 04/30 suggested resolution -Currently stable. Anemia -Baseline anemia prior to initial hysterectomy Hgb 10-10.5 -Hgb 8.9 05/04/19 stable. -Only consider transfusion if hgb below 7. Preadmission - S/P Hysterectomy with L Oophorectomy 04/16/19 As above Hypothyroid continue home dose levothyroxine 75 mcg daily Depression -Continue home Paxil and Quetiapine. DVT PPX: Heparin 5,000 units, SQ, tid. Famotidine PO for stress ulcer prophylaxis. Fluids and nutrition: Diabetic diet and Low Fiber Dispo: Floor (2) Abdominal abscess: (3) Acute kidney injury: (4) Hydropneumothorax: (5) Anemia: (6) Status post hysterectomy with oophorectomy: (7) Hypothyroid: (8) Depression: Supervising Physician Co-Signing Physician Notes Resident Physician Supervision Note: I independently interviewed and examined the patient and verified the mata his tory and physical, reviewed labs and image studies, discussed the case with the resident Dr. Carrera and agree with the findings and care plan. Subjective Patient examined at the bedside this morning. She states that her status has stayed relatively the same in regards to pain, but notes that she has been attempting to wean off the oxycodon 10mg for pain control. Her concern is that the pain medication takes 1 hour to start working, works for roughly 2 hours, and then does minimal in terms of effecting her pain surrounding the drain sites in the 4th hour. She notes that she has not been asking for tylenol in the times between to see if it could augment her pain control. She has no other complaints at this time and denies NVD, sob, chest pain, chest pressure, fevers, chills, calf pain or headache. Review of Systems Constitutional: no fever and no chills Eyes: no eye pain Ear, Nose, Mouth, Throat: no dizziness Respiratory: no cough, no dyspnea, no hemoptysis, no pain on inspiration and no wheezing Cardiovascular: no chest pain, no dyspnea and no palpitations Gastrointestinal: + abdominal pain (appropriate soreness in areas of drains); no nausea, no vomiting, no constipation and no diarrhea/loose stools Genitourinary: no dysuria, no urinary hesitancy and no hematuria Musculoskeletal: no neck pain Physical Exam Constitutional: well developed and well nourished; no acute distress and not in distress Eyes: PERRL, conjunctivae normal, anicteric sclerae + anicteric sclerae ENMT: external ear and nose normal, oropharynx normal Neck: trachea midline, no thyromegaly normal visual inspection, trachea midline and + thick neck Respiratory: normal respiratory effort; no respiratory distress, no cough and not tachypneic Auscultation: lungs clear to auscultation bilaterally; no diminished lung sounds and no wheezes Cardiovascular: Rate/Rhythm: regular rate and regular rhythm Heart Sounds: normal S1 and normal S2; no gallop, no murmur and no cardiac rub Vessels: normal peripheral pulses; no JVD Extremities: no calf tenderness Gastrointestinal (Abdomen): Inspection/Auscultation: normal bowel sounds, + abdominal surgical scar, + abdominal surgical incision (clean, dry, no pus noted. ) and + abdominal surgical drain present (Left darin drain milky fluid, right minimal fluid noted); abdomen not distended Percussion/Palpation: + abdomen tender (at incision and drain sites, appropriate) and abdomen soft; no guarding and abdomen not rigid Musculoskeletal: Spine: normal cervical ROM and no pain with cervical ROM Skin: no rashes, warm and dry + pallor (generally looks pale, improved today vs yesterday) Neurologic: PERRL, EOMI, accommodation nl, no face palsy, no dysarthria moves all extremities and awake Motor/Sensory: no sensory deficit Psychiatric: A+Ox3, euthymic affect Orientation: alert and oriented x 3 Results & Data Vital Signs (Past 12 Hours) Vital Signs Temp Pulse Resp BP BP Pulse Ox 05/06/19 07:26 36.3 C L 98 H 20 132/82 94 05/05/19 23:10 37.1 C 95 H 16 119/80 95 Laboratory Results Abnormal lab results 05/05/19 05/05/19 05/06/19 Range/Units 12:08 20:51 05:34 Sodium 132 L (136-145) mmol/L BUN 27 H (7-18) mg/dl Creatinine 2.00 H (0.6-1.2) mg/dl Glucose 139 H (70-99) mg/dl POC Glucose 116 H 123 H (70-99) 05/06/19 Range/Units 08:12 Sodium (136-145) mmol/L BUN (7-18) mg/dl Creatinine (0.6-1.2) mg/dl Glucose (70-99) mg/dl POC Glucose 129 H (70-99) Medications Administered Current Inpatient Medications Acetaminophen (Tylenol) 650 mg PO Q4H PRN PRN Reason: Pain or Fever Stop: 05/30/19 03:03 Last Admin: 05/02/19 05:37 Dose: 650 mg Documented by: Al Hydrox/Mg Hydrox/Simethicone (Maalox) 30 ml PO Q6 [facility] Stop: 05/23/19 21:39 Last Admin: 05/06/19 05:56 Dose: 30 ml Documented by: Amoxicillin/Clavulanate Potassium (Augmentin 875mg) 1 tab PO BIDM [facility] Stop: 05/11/19 16:59 Last Admin: 05/06/19 10:31 Dose: 1 tab Documented by: Dextrose (Dextrose 50%) 25 - 50 ml IV UD PRN; Protocol PRN Reason: Hypoglycemia Protocol Stop: 05/27/19 18:59 Famotidine (Pepcid) 20 mg PO BID [facility] Stop: 05/29/19 20:59 Last Admin: 05/06/19 09:19 Dose: 20 mg Documented by: Glucagon (Glucagen) 1 mg IM UD PRN; Protocol PRN Reason: Hypoglycemia Protocol Stop: 05/27/19 18:59 Glucose (Glucose 40%) 15 - 30 gm PO UD PRN; Protocol PRN Reason: Hypoglycemia Protocol Stop: 05/27/19 18:59 Glucose (Dex4 Glucose) 4 - 8 tabs PO UD PRN; Protocol PRN Reason: Hypoglycemia Protocol Stop: 05/27/19 18:59 Heparin Sodium (Porcine) (Heparin Sodium (Porcine)) 5,000 units SQ Q8 [facility] Stop: 05/30/19 13:59 Last Admin: 05/06/19 05:57 Dose: 5,000 units Documented by: Insulin Aspart (Novolog Flexpen) 0 units SC ACHS [facility] Stop: 05/30/19 16:29 Last Admin: 05/06/19 09:13 Dose: 4 units Documented by: Levothyroxine Sodium (Synthroid) 75 mcg PO DAILYBB [facility] Stop: 05/22/19 06:29 Last Admin: 05/06/19 05:56 Dose: 75 mcg Documented by: Miconazole Nitrate (Desenex) 1 appln EXT PRN PRN PRN Reason: ABDOMINAL FOLDS Stop: 06/03/19 14:36 Last Admin: 05/04/19 16:30 Dose: 1 appln Documented by: Miconazole Nitrate (Monistat Derm) 1 appln EXT BID [facility] Stop: 06/05/19 10:59 Miscellaneous (Carbohydrates For Hypoglycemia) 15 - 30 gm PO UD PRN PRN Reason: Hypoglycemia Treatment Stop: 05/27/19 18:59 Ondansetron HCl (Zofran) 4 mg IV Q6H PRN PRN Reason: Nausea And Vomiting Stop: 05/19/19 20:00 Last Admin: 05/02/19 18:23 Dose: 4 mg Documented by: Oxycodone HCl (Roxicodone Immediate Rel) 5 mg PO Q4H PRN PRN Reason: Pain Stop: 05/16/19 17:31 Last Admin: 05/03/19 13:13 Dose: 5 mg Documented by: Oxycodone HCl (Roxicodone Immediate Rel) 10 mg PO Q4H PRN PRN Reason: Severe Pain Stop: 05/17/19 15:01 Last Admin: 05/06/19 05:57 Dose: 10 mg Documented by: Paroxetine HCl (Paxil) 40 mg PO HS [facility] Stop: 05/21/19 20:59 Last Admin: 05/05/19 20:31 Dose: 40 mg Documented by: Potassium Chloride (Klor-Con M20) 20 meq PO BID [facility] Stop: 05/25/19 20:59 Last Admin: 05/06/19 09:19 Dose: 20 meq Documented by: Quetiapine Fumarate (Seroquel) 200 mg PO HS [facility] Stop: 05/21/19 20:59 Last Admin: 05/05/19 20:31 Dose: 200 mg Documented by: Topiramate (Topamax) [address] [facility] Stop: 05/21/19 20:59 Last Admin: 05/05/19 20:32 Dose: 100 mg Documented by: Zinc Sulfate (Zinc Sulfate) 220 mg PO BID [facility] Stop: 06/03/19 20:59 Last Admin: 05/06/19 09:19 Dose: 220 mg Documented by: PG Care Time/CCT Total # of Minutes Spent Total Time Spent with Patient: Total time spent is greater than 50% in coordination of care (as documented) at patient's floor/unit and/or counseling patient: Resident Activity Tracking Resident Involvement: Resident Care Provided Care Provided: Adult Hospital Medicine
[2019-05-06] MEDS: ONDANSETRON INJ 2 MG/ML 2 ML VIAL IV PRN (12:26)
[2019-05-06] MEDS: MICONAZOLE NITRATE 2% CR 30 GM TUBE EXT SCH ×2 (12:26→21:15)
--- NOTE | 2019-05-06 14:40 | Surgery Progress Note ---
Date of Service May 06, 2019 Assessment & Plan (1) Abdominal abscess: Postoperative day #15 status post exploratory laparotomy with formation of ileostomy and drainage of abscess -vitals stable, afebrile - CT scan on 04/30 showed improvement of LLQ anterior intra-abdominal abscess and improvement of small bowel wall thickening - Abdominal pain better controlled today Plan: Continue 10 mg oxycodone immediate release prn severe pain, need to try to decrease frequency of the 10 mg of Oxycodone. 5 mg of Oxycodone for moderate pain is ordered Continue PO Antibiotics, she will need prolonged course of oral antibiotics on discharge given purulent drainage in drains. continue carb DM diet Continue darin drains will definitely need to go home with drains continue OOB to chair and ambulation Continue SCDs and Heparin Continue medical management Continue incentive spirometry Nephrology consulted for rising creatinine, repeat bmp tomorrow Dr. Zimmerman has seen and examined pt, agrees with above. Subjective Frustrated abdominal pain moderate currently but tried to space out the pain medication and just recently had Oxycodone for first time all day today slightly nauseated currently no vomiting tolerating diet ostomy still functioning Physical Exam Constitutional: WD/WN, vitals as above no acute distress Gastrointestinal (Abdomen): Inspection/Auscultation: + abdominal surgical incision (annalisa intact, opened areas of incision from prior drain healing) and + abdominal surgical drain present (Right drain with cloudy output, Left drain with purulent output); abdomen not distended Percussion/Palpation: + abdomen tender (Right flank pain) and abdomen soft; no guarding and abdomen not rigid ileostomy functioning Skin: no rashes, warm and dry Psychiatric: Orientation: alert and oriented x 3 Affect: + flat affect Results & Data Vital Signs (Past 12 Hours) Vital Signs Temp Pulse Resp BP Pulse Ox 05/06/19 11:21 36.9 C 94 H 20 110/76 94 05/06/19 07:26 36.3 C L 98 H 20 132/82 94 Laboratory Results 05/06/19 05/06/19 05/05/19 Range/Units 08:12 05:34 20:51 Sodium 132 L (136-145) mmol/L Potassium 4.2 (3.5-5.1) mmol/L Chloride 99 (98-107) mmol/L Carbon Dioxide 25 (21-32) mmol/L Anion Gap 8.0 (3-11) BUN 27 H (7-18) mg/dl Creatinine 2.00 H (0.6-1.2) mg/dl Est Cr Clr Drug Dosing 44.4 ml/min Est GFR ( Amer) 35.1 Est GFR (Non-Af Amer) 30.2 BUN/Creatinine Ratio 13.5 (10-20) Glucose 139 H (70-99) mg/dl POC Glucose 129 H 123 H (70-99) Calcium 9.1 (8.5-10.1) mg/dl 05/05/19 Range/Units 17:11 Sodium (136-145) mmol/L Potassium (3.5-5.1) mmol/L Chloride (98-107) mmol/L Carbon Dioxide (21-32) mmol/L Anion Gap (3-11) BUN (7-18) mg/dl Creatinine (0.6-1.2) mg/dl Est Cr Clr Drug Dosing ml/min Est GFR ( Amer) Est GFR (Non-Af Amer) BUN/Creatinine Ratio (10-20) Glucose (70-99) mg/dl POC Glucose 85 (70-99) Calcium (8.5-10.1) mg/dl
[2019-05-06] MEDS: PARoxetine HCl 20 MG TAB PO SCH (21:15)
[2019-05-06] MEDS: QUETIAPINE FUMARATE 200 MG TAB PO SCH (21:15)
[2019-05-06] MEDS: TOPIRAMATE 100 MG TAB PO SCH (21:15)
[2019-05-07] MEDS: ALUMINUM/MAGNESIUM SUSP 30 ML UDC PO SCH ×4 (00:20→17:05)
[2019-05-07] MEDS: LEVOTHYROXINE SODIUM 75 MCG TABLET PO SCH (05:39)
[2019-05-07] MEDS: OXYCODONE HCL IR 5 MG TAB (IMMEDIATE RELEASE) PO PRN ×5 (05:44→21:56)
[2019-05-07] MEDS: HEPARIN SOD 5,000 UNIT/0.5 ML VIAL SQ SCH ×3 (05:45→21:18)
[2019-05-07] MEDS: ONDANSETRON INJ 2 MG/ML 2 ML VIAL IV PRN (06:05)
[2019-05-07 06:17] LABS: BUN Creatinine Ratio 15.8 (10-20); Calcium 9.1 mg/dl (8.5-10.1); Creatinine Clr Calc Pharmacy 42.9 ml/min; Est GFR (African American) 33.6; Potassium 4.5 mmol/L (3.5-5.1)
--- NOTE | 2019-05-07 07:58 | Surgery Progress Note ---
Date of Service May 07, 2019 Assessment & Plan (1) Abdominal abscess: Postoperative day #16 status post exploratory laparotomy with formation of ileostomy and drainage of abscess -vitals stable, afebrile - CT scan on 04/30 showed improvement of LLQ anterior intra-abdominal abscess and improvement of small bowel wall thickening - Abdominal pain persistent somewhat controlled (tried to decrease frequency yesterday) - Nausea due to pain, controlled with meds, tolerating diet - Creatinine stable at 2.07 today (2.0 yesterday) UO 1900 cc Plan: Continue 10 mg oxycodone immediate release prn severe pain, need to try to decrease frequency of the 10 mg of Oxycodone. 5 mg of Oxycodone for moderate pain is ordered Continue PO Antibiotics, she will need prolonged course of oral antibiotics on discharge given purulent drainage in drains. continue carb DM diet Continue darin drains will definitely need to go home with drains continue OOB to chair and ambulation Continue SCDs and Heparin Continue medical management Continue incentive spirometry Okay from surgical standpoint for discharge with darin drains and prolonged course of PO Antibiotics with home health services. Dr. Zimmerman has seen and examined pt, agrees with above Subjective feeling okay this morning, vague with answers pain moderate, gets nauseated if doesnt have good pain control ambulating without dizziness or weakness urinating without difficulty Physical Exam Constitutional: WD/WN, vitals as above no acute distress Respiratory: normal respiratory effort; no labored breathing Gastrointestinal (Abdomen): Inspection/Auscultation: + abdominal surgical incision (midline incision with annalisa, inferior aspect with fibrinous tissue) and + abdominal surgical drain present (Right drain with minimal output, Left drain with purulent output) Percussion/Palpation: + abdomen tender (at drain sites) and abdomen soft; no guarding and abdomen not rigid Skin: no rashes, warm and dry Psychiatric: Orientation: alert and oriented x 3 Affect: + flat affect Results & Data Vital Signs (Past 12 Hours) Vital Signs Temp Pulse Resp BP Pulse Ox 05/07/19 07:16 36.7 C 95 H 18 117/79 93 05/06/19 23:42 37.2 C 98 H 18 105/72 94
[2019-05-07] MEDS: MICONAZOLE NITRATE 2% CR 30 GM TUBE EXT SCH ×2 (08:48→21:18)
[2019-05-07] MEDS: FAMOTIDINE 20 MG TAB PO SCH ×2 (08:48→21:19)
[2019-05-07] MEDS: ZINC SULFATE 220 MG CAPSULE PO SCH ×2 (08:49→21:18)
[2019-05-07] MEDS: AMOXICILLIN/CLAVULANATE 875 MG TAB PO SCH ×2 (08:49→18:03)
[2019-05-07] MEDS: POTASSIUM CHLORIDE 20 MEQ TABCR PO SCH ×2 (08:49→21:19)
[2019-05-07] MEDS: INSULIN ASPART 100 UNITS/ML 3 ML PEN SC SCH ×4 (08:51→21:04)
--- NOTE | 2019-05-07 09:05 | Gynecologic Progress Note ---
Date of Service May 07, 2019 Assessment & Plan (1) Status post exploratory laparotomy: POD#16. Site of bowel perforation was not identified during ex-lap procedure; ileostomy loop was created; ileostomy bag in place and draining bilious fluid. - Patient continues to improve clinically - Pt continues to tolerate oral antibiotics (augmentin), began on 05/01/19 -Continue diabetic diet -Pelvic drains remain in place. Patient to go home with drains. -Pain controlled with Oxycodone 10 mg -Yeast in abdominal fold: antifungal creme, BID -Raising Cr level: Nephrology consulted and following labs, input and outputs. Supervising Physician Co-Signing Physician Notes Patient seen and examined on 05/07/19. Agree with the findings in the PA's note. Subjective (1) Status post exploratory laparotomy: POD#16. Site of bowel perforation was not identified during ex-lap procedure; ileostomy loop was created; ileostomy bag in place and draining formed stool and bilious material. -Pt continues to improve clinically, pain controlled, afebrile, heart rate WNL - Serum creatinine elevated to 2.07 today, 2.0 yesterday, 05/06/19, urine output yesterday 1900 mL. Nephrology consulted and following. - Pt continues to tolerate oral antibiotics (augmentin), began on 05/01/19 -Continues diabetic diet, tolerating without vomiting. She admits to some nausea early this AM, tolerated breakfast without nausea. -Pelvic drains remain in place. Patient to go home with drains. -Pain controlled with Oxycodone 10 mg, starting to wean -Yeast in abdominal fold: antifungal creme now being applied BID. Patient seen with Dr. Hutchins who agrees with evaluation and plan of care. Review of Systems Review of Systems: All systems reviewed & are unremarkable except as noted in HPI & below Physical Exam Constitutional: WD/WN, vitals as above Respiratory: normal respiratory effort Gastrointestinal (Abdomen): Inspection/Auscultation: abdomen normal to inspection Percussion/Palpation: + abdomen tender and abdomen soft; no guarding, abdomen not rigid, no hepatomegaly and no splenomegaly Left pelvic drain in place, draining purulent drainage, right pelvic drain with serosanguineous fluid, ileostomy intact, with output of solid stool and bilious fluid, midline incision intact, areas inferiorly and superiorly with separation and scant exudate, annalisa intact Musculoskeletal: Extremities: extremities normal to inspection Skin: + rash beefy red rash under pannus and groin, with satellite lesion on thigh, non weeping Psychiatric: Orientation: alert Apperance: appropriately groomed Eye Contact: good eye contact Speech: normal rate/rhythm/volume of speech Results & Data Vital Signs (Past 12 Hours) Vital Signs Temp Pulse Resp BP Pulse Ox 05/07/19 07:16 36.7 C 95 H 18 117/79 93 05/06/19 23:42 37.2 C 98 H 18 105/72 94
--- NOTE | 2019-05-07 10:51 | Family Medicine Progress Note ---
Date of Service May 07, 2019 Assessment & Plan (1) Status post exploratory laparotomy: 39 yo F s/p elective laparoscopic hysterectomy with left oophorectomy on 04/16/19 complicated by abscess formation, s/p exploratory laparoscopy with diverting loop ileostomy creation on 04/20/19. Post Op Multiple Abdominal abscesses, Status post ex lap and diverting ileostomy 04/20 - Patient clinically improving; WBC trending down at 11.9 on 05/04/19. - IV Vanc d/luis carlos on 04/27. Zosyn converted to PO Augmentin on 05/01, patient tolerating PO antibiotic well. - repeat A/P CT 04/30 showed improvement (decreasing size) of known abscesses; no new abscesses noted. - Pain management with Acetaminophen 650mg Q4H, Oxycodone 5mg Q4H, Oxycodone 10mg Q4H PRN -Patient noted today that they were improving with pain control on 5mg Oxycodone. - Gen Surg on the case -Recommended continued pain control - attempt to wean from the 10mg Oxycodone. -Continue PO antibiotics -DARIN drains (L and R) will go home with patient -Once pain controlled consider d/c in near future with darin drain and home health nursing for ostomy care/teaching. -Marta drain in the incision removed on 05/03/19 -Ostomy site clean and dry. -Dietary consult placed for nutritional evaluation - recommended low fiber diet and to continue Zinc Sulfate as prescribed. -PT OT ordered -expectant management -Will sign off from patient at this time, please call if needed. STEFANY - ATN/AIN - pre-operative Cr was 0.69 on 04/08/19 - serum creatinine at 2.07 on 05/07/19 - Nephrology consulted, appreciate recs -Repeat BMP if patient continues to be hospitalized. -F/U in outpatient clinic if patient discharged. - d/c of IV vancomycin on 04/27 - Patient drinking fluids and voiding appropriately. - Strict I and O's - continue to monitor with daily BMPs UTI - urine culture grew Enterobacter sensitive to Zosyn (patient completed course of IV Zosyn) - converted to PO Augmentin Hydropneumothorax -Developed R sided hydropneunothorax during hospital stay first visualized on chest CT 04/20 prior to exploratory lap. -Etiology unclear -Chest tube was placed, fluid drained, and removed. -Fluid analysis of drainage was benign. -Chest XR 04/30 suggested resolution -Currently stable. Anemia -Baseline anemia prior to initial hysterectomy Hgb 10-10.5 -Hgb 8.9 05/04/19 stable. -Only consider transfusion if hgb below 7. Preadmission - S/P Hysterectomy with L Oophorectomy 04/16/19 As above Hypothyroid continue home dose levothyroxine 75 mcg daily Depression -Continue home Paxil and Quetiapine. DVT PPX: Heparin 5,000 units, SQ, tid. Famotidine PO for stress ulcer prophylaxis. Fluids and nutrition: Diabetic diet and Low Fiber Dispo: Floor (2) Abdominal abscess: (3) Acute kidney injury: (4) Hydropneumothorax: (5) Anemia: (6) Status post hysterectomy with oophorectomy: (7) Hypothyroid: (8) Depression: Supervising Physician Co-Signing Physician Notes Resident Physician Supervision Note: I independently interviewed and examined the patient and verified the mata history and physical, reviewed labs and image studies, discussed the case with the resident Dr. Carrera and agree with the findings and care plan. Subjective Patient seen and examined at bedside this morning. Patient noted slight improvement in pain rating as a 2/10 today while on Oxycodone 5mg. Patient notes she otherwise feels well and is anticipatory towards discharge. Review of Systems Constitutional: no fever and no chills Eyes: no eye pain Ear, Nose, Mouth, Throat: no dizziness Respiratory: no cough, no dyspnea, no hemoptysis, no pain on inspiration and no wheezing Cardiovascular: no chest pain, no dyspnea and no palpitations Gastrointestinal: + abdominal pain (appropriate soreness in areas of drains); no nausea, no vomiting, no constipation and no diarrhea/loose stools Genitourinary: no dysuria, no urinary hesitancy and no hematuria Musculoskeletal: no neck pain Neurologic: no headache(s) Physical Exam Constitutional: well developed and well nourished; no acute distress and not i n distress Eyes: PERRL, conjunctivae normal, anicteric sclerae + anicteric sclerae ENMT: external ear and nose normal, oropharynx normal Neck: trachea midline, no thyromegaly normal visual inspection and trachea midline Respiratory: normal respiratory effort; no respiratory distress, no cough and not tachypneic Auscultation: lungs clear to auscultation bilaterally; no diminished lung sounds and no wheezes Cardiovascular: Rate/Rhythm: regular rate and regular rhythm Heart Sounds: normal S1 and normal S2; no gallop, no murmur and no cardiac rub Vessels: normal peripheral pulses; no JVD Extremities: no calf tenderness Gastrointestinal (Abdomen): Inspection/Auscultation: normal bowel sounds, + abdominal surgical scar, + abdominal surgical incision (clean, dry, no pus noted. ) and + abdominal surgical drain present (Left darin drain bush fluid, right minimal fluid noted); abdomen not distended Percussion/Palpation: + abdomen tender (at incision and drain sites, appropriate) and abdomen soft; no guarding and abdomen not rigid Musculoskeletal: Head/Neck/Chest: normocephalic and head atraumatic Spine: normal cervical ROM and no pain with cervical ROM Skin: no rashes, warm and dry Neurologic: PERRL, EOMI, accommodation nl, no face palsy, no dysarthria moves all extremities and awake Motor/Sensory: no sensory deficit Psychiatric: A+Ox3, euthymic affect Orientation: alert and oriented x 3 Results & Data Vital Signs (Past 12 Hours) Vital Signs Temp Pulse Resp BP Pulse Ox 05/07/19 07:16 36.7 C 95 H 18 117/79 93 05/06/19 23:42 37.2 C 98 H 18 105/72 94 Laboratory Results Abnormal lab results 05/07/19 05/07/19 05/07/19 Range/Units 05:10 08:03 11:57 Sodium 133 L (136-145) mmol/L BUN 33 H (7-18) mg/dl Creatinine 2.07 H (0.6-1.2) mg/dl Glucose 117 H (70-99) mg/dl POC Glucose 132 H 110 H (70-99) 05/07/19 Range/Units 20:47 Sodium (136-145) mmol/L BUN (7-18) mg/dl Creatinine (0.6-1.2) mg/dl Glucose (70-99) mg/dl POC Glucose 117 H (70-99) Medications Administered Current Inpatient Medications Acetaminophen (Tylenol) 650 mg PO Q4H PRN PRN Reason: Pain or Fever Stop: 05/30/19 03:03 Last Admin: 05/02/19 05:37 Dose: 650 mg Documented by: Al Hydrox/Mg Hydrox/Simethicone (Maalox) 30 ml PO Q6 [facility] Stop: 05/23/19 21:39 Last Admin: 05/07/19 17:05 Dose: 30 ml Documented by: Amoxicillin/Clavulanate Potassium (Augmentin 875mg) 1 tab PO BIDM [facility] Stop: 05/11/19 16:59 Last Admin: 05/07/19 18:03 Dose: 1 tab Documented by: Dextrose (Dextrose 50%) 25 - 50 ml IV UD PRN; Protocol PRN Reason: Hypoglycemia Protocol Stop: 05/27/19 18:59 Famotidine (Pepcid) 20 mg PO BID [facility] Stop: 05/29/19 20:59 Last Admin: 05/07/19 08:48 Dose: 20 mg Documented by: Glucagon (Glucagen) 1 mg IM UD PRN; Protocol PRN Reason: Hypoglycemia Protocol Stop: 05/27/19 18:59 Glucose (Glucose 40%) 15 - 30 gm PO UD PRN; Protocol PRN Reason: Hypoglycemia Protocol Stop: 05/27/19 18:59 Glucose (Dex4 Glucose) 4 - 8 tabs PO UD PRN; Protocol PRN Reason: Hypoglycemia Protocol Stop: 05/27/19 18:59 Heparin Sodium (Porcine) (Heparin Sodium (Porcine)) 5,000 units SQ Q8 [facility] Stop: 05/30/19 13:59 Last Admin: 05/07/19 14:10 Dose: Not Given Documented by: Insulin Aspart (Novolog Flexpen) 0 units SC ACHS [facility] Stop: 05/30/19 16:29 Last Admin: 05/07/19 21:04 Dose: Not Given Documented by: Levothyroxine Sodium (Synthroid) 75 mcg PO DAILYBB [facility] Stop: 05/22/19 06:29 Last Admin: 05/07/19 05:39 Dose: 75 mcg Documented by: Miconazole Nitrate (Desenex) 1 appln EXT PRN PRN PRN Reason: ABDOMINAL FOLDS Stop: 06/03/19 14:36 Last Admin: 05/04/19 16:30 Dose: 1 appln Documented by: Miconazole Nitrate (Monistat Derm) 1 appln EXT BID [facility] Stop: 06/05/19 10:59 Last Admin: 05/07/19 08:48 Dose: 1 appln Documented by: Miscellaneous (Carbohydrates For Hypoglycemia) 15 - 30 gm PO UD PRN PRN Reason: Hypoglycemia Treatment Stop: 05/27/19 18:59 Ondansetron HCl (Zofran) 4 mg IV Q6H PRN PRN Reason: Nausea And Vomiting Stop: 05/19/19 20:00 Last Admin: 05/07/19 06:05 Dose: 4 mg Documented by: Oxycodone HCl (Roxicodone Immediate Rel) 5 mg PO Q4H PRN PRN Reason: Pain Stop: 05/16/19 17:31 Last Admin: 05/07/19 05:44 Dose: 5 mg Documented by: Oxycodone HCl (Roxicodone Immediate Rel) 10 mg PO Q4H PRN PRN Reason: Severe Pain Stop: 05/17/19 15:01 Last Admin: 05/07/19 18:04 Dose: 10 mg Documented by: Paroxetine HCl (Paxil) 40 mg PO HS [facility] Stop: 05/21/19 20:59 Last Admin: 05/06/19 21:15 Dose: 40 mg Documented by: Potassium Chloride (Klor-Con M20) 20 meq PO BID [facility] Stop: 05/25/19 20:59 Last Admin: 05/07/19 08:49 Dose: 20 meq Documented by: Quetiapine Fumarate (Seroquel) 200 mg PO HS [facility] Stop: 05/21/19 20:59 Last Admin: 05/06/19 21:15 Dose: 200 mg Documented by: Topiramate (Topamax) 100 mg PO [facility] Stop: 05/21/19 20:59 Last Admin: 05/06/19 21:15 Dose: 100 mg Documented by: Zinc Sulfate (Zinc Sulfate) 220 mg PO BID [facility] Stop: 06/03/19 20:59 Last Admin: 05/07/19 08:49 Dose: 220 mg Documented by: PG Care Time/CCT Total # of Minutes Spent Total Time Spent with Patient: Total time spent is greater than 50% in coordination of care (as documented) at patient's floor/unit and/or counseling patient: Resident Activity Tracking Resident Involvement: Resident Care Provided Care Provided: Adult Hospital Medicine
--- NOTE | 2019-05-07 11:44 | Progress Note ---
DATE: 05/07/2019 Marleny Woody was seen today. She is still better, although "I just don't feel good." She has been afebrile. Her vital signs are stable. Her white count has not been checked in a few days. Her x-ray showed small bilateral pleural effusions yesterday. I am going to order a film in the department today so we can get a lateral and see if we can ascertain the fluid a bit better. I discussed this with Ms. Woody. Of course from a thoracic surgery standpoint, she can be discharged when the primary service feels she is stable.
--- NOTE | 2019-05-07 13:53 | XRay Report ---
XR chest 2V PA/lateral HISTORY: pleural effusions COMPARISON: Chest 05/06/2019. FINDINGS: There are low lung volumes. The heart remains mildly enlarged. Small bilateral pleural effu sions and bibasilar densities persist. This is not significantly changed. No pneumothorax. The upper lung zones are clear. IMPRESSION: No significant change in the small bilateral pleural effusions and bibasilar densities. Electronically signed by: Jeffery Slaughter M.D. 05/07/2019 1:51 PM
--- NOTE | 2019-05-07 14:16 | Nephrology Progress Note ---
Date of Service May 07, 2019 Assessment & Plan (1) Acute kidney injury: 39-year-old female with acute kidney injury in the setting of sepsis related to abdominal abscesses following complicated laparoscopic during hysterectomy with lysis of adhesions. Medical history also notable for diabetes mellitus which is treated with metformin. Hospital course complicated by acute blood loss anemia requiring packed red blood cell transfusion support. Noncontrast CT scan the abdomen and pelvis was updated on April 30. There is no evidence of obstruction. Urine studies are bland with acellular microscopy. Patient's clinical presentation is consistent with ATN versus AIN. Her volume status is euvolemic. Her blood pressures appropriate. Electrolytes are within normal limits. There is no indication for hemodialysis. Medications are appropriately dosed for kidney function. At this time no additional changes were made. Creatinine has been stable at 2.0 mg/dL for the past 24 hours. We will continue with close perspective monitoring. Urine output is appropriate. Patient does not have high output through her ostomy. Her appetite is reasonable and her oral intake is appropriate. If the patient remains hospitalized, I will repeat a metabolic profile tomorrow morning. I discharge is intended, outpatient follow-up in the Nephrology Clinic will be arranged for next week. No additional recommendations at this time. (2) Diabetes: (3) S/P ileostomy: (4) Status post exploratory laparotomy: (5) Abdominal abscess: (6) Status post hysterectomy with oophorectomy: Subjective No acute events overnight. Patient was seen and evaluated this morning. Overall, she had no acute complaints. She feels relatively well. Weakness persists. She denies pain. Appetite is fair. She denies nausea vomiting or abdominal pain. No fevers or chills. Hopes to be discharged soon. Review of Systems Constitutional: no weight loss, no weight gain and no problem reported Eyes: no problem reported Ear, Nose, Mouth, Throat: no problem reported Respiratory: no problem reported Cardiovascular: no problem reported Gastrointestinal: no problem reported Musculoskeletal: no problem reported Integumentary: no problem reported Neurologic: no problem reported Psychiatric: no problem reported Endocrine: no problem reported Hematologic / Lymphatic: no problem reported Physical Exam Constitutional: well developed; no acute distress Eyes: + anicteric sclerae; no conjunctival abnormality and no scleral a bnormality ENMT: Mouth: no oral mucosal abnormality and oral mucous membranes not dry Neck: normal visual inspection and trachea midline Respiratory: normal respiratory effort Auscultation: lungs clear to auscultation bilaterally Cardiovascular: Rate/Rhythm: regular rate Heart Sounds: normal S1 and normal S2 Vessels: no JVD Extremities: no edema Gastrointestinal (Abdomen): Inspection/Auscultation: + abdominal surgical incision and + abdominal surgical drain present Percussion/Palpation: abdomen soft; no guarding Musculoskeletal: Extremities: no cyanosis and no clubbing Skin: normal turgor; no lesions Neurologic: Motor/Sensory: no tremor and no asterixis Psychiatric: Orientation: alert and oriented x 3 Results & Data Vital Signs (Past 12 Hours) Vital Signs Temp Pulse Resp BP Pulse Ox 05/07/19 07:16 36.7 C 95 H 18 117/79 93 Laboratory Results Laboratory Results - last 24 hr 05/06/19 05/06/19 05/06/19 12:08 17:20 20:51 Sodium Potassium Chloride Carbon Dioxide Anion Gap BUN Creatinine Est Cr Clr Drug Dosing Est GFR ( Amer) Est GFR (Non-Af Amer) BUN/Creatinine Ratio Glucose POC Glucose 99 84 111 H Calcium 05/07/19 05/07/19 05/07/19 05:10 08:03 11:57 Sodium 133 L Potassium 4.5 Chloride 100 Carbon Dioxide 23 Anion Gap 10.0 BUN 33 H Creatinine 2.07 H Est Cr Clr Drug Dosing 42.9 Est GFR ( Amer) 33.6 Est GFR (Non-Af Amer) 29.0 BUN/Creatinine Ratio 15.8 Glucose 117 H POC Glucose 132 H 110 H Calcium 9.1 PG Care Time/CCT Total # of Minutes Spent Total Time Spent with Patient: Total time spent is greater than 50% in coordination of care (as documented) at patient's floor/unit and/or counseling patient: (1) Diabetes Diabetes mellitus complication status: with other specified complication Diabetes mellitus fci insulin use: unspecified fci insulin use status Diabetes mellitus type: other specified (including RADHA) Qualified Code(s): E13.69 - Other specified diabetes mellitus with other specified complication
[2019-05-07] MEDS: TOPIRAMATE 100 MG TAB PO SCH (21:19)
[2019-05-07] MEDS: PARoxetine HCl 20 MG TAB PO SCH (21:19)
[2019-05-07] MEDS: QUETIAPINE FUMARATE 200 MG TAB PO SCH (21:19)
[2019-05-08] MEDS: ALUMINUM/MAGNESIUM SUSP 30 ML UDC PO SCH ×5 (00:23→23:04)
[2019-05-08] MEDS: HEPARIN SOD 5,000 UNIT/0.5 ML VIAL SQ SCH ×3 (05:31→23:21)
[2019-05-08] MEDS: LEVOTHYROXINE SODIUM 75 MCG TABLET PO SCH (05:31)
[2019-05-08] MEDS: OXYCODONE HCL IR 5 MG TAB (IMMEDIATE RELEASE) PO PRN ×5 (05:46→23:03)
[2019-05-08 05:49] LABS: Albumin Level 2.7 gm/dl (3.4-5.0); BUN Creatinine Ratio 17.1 (10-20); Calcium 9.3 mg/dl (8.5-10.1); Creatinine Clr Calc Pharmacy 45.3 ml/min; Est GFR (African American) 35.9; Phosphorus 4.6 mg/dl (2.5-4.9); Potassium 4.7 mmol/L (3.5-5.1)
--- NOTE | 2019-05-08 06:39 | Progress Note ---
Date of Service May 08, 2019 Assessment & Plan (1) Status post exploratory laparotomy: covering for Dr Zimmerman vitals stable- po pain meds and Augmentin tolerated tolerating diet- drains in place Dr Yasir wilkerson stable pt/ family will need help at home- if can be set up- can d/c when ok with other services d/c info from Dr Zimmerman in chart Results & Data Vital Signs (Past 12 Hours) Vital Signs Temp Pulse Resp BP Pulse Ox 05/07/19 22:58 37.4 C 91 H 16 114/74 96 PG Care Time/CCT Total # of Minutes Spent Total Time Spent with Patient: Total time spent is greater than 50% in coordination of care (as documented) at patient's floor/unit and/or counseling patient:
--- NOTE | 2019-05-08 07:50 | Surgery Progress Note ---
Date of Service May 08, 2019 Assessment & Plan (1) Status post exploratory laparotomy: POD#17. Site of bowel perforation was not identified during ex-lap procedure; ileostomy loop was created; ileostomy bag in place and draining bilious fluid. - Patient continues to improve clinically - Pt continues to tolerate oral antibiotics (augmentin), began on 05/01/19 -Continue diabetic diet -Pelvic drains remain in place. Patient to go home with drains. -Pain controlled with Oxycodone 10 mg -Yeast in abdominal fold: antifungal creme, BID -Cr level stable: Nephrology consulted and following labs, input and outputs. -Agree with General Surgery in terms of discharge. From a Gynecological sta ndpoint, Patient can be discharge. Awaiting recommendations from Nephrology to when appropriate to discharge. Subjective Status post exploratory laparotomy: POD#17. Site of bowel perforation was not identified during ex-lap procedure; ileostomy loop was created; ileostomy bag in place and draining bilious fluid. - Patient continues to improve clinically - Pt continues to tolerate oral antibiotics (augmentin), began on 05/01/19 -Continue diabetic diet -Pelvic drains remain in place. Patient to go home with drains. -Pain controlled with Oxycodone 10 mg -Yeast in abdominal fold: antifungal creme, BID -Cr level stable: Nephrology consulted and following labs, input and outputs. Physical Exam Respiratory: normal respiratory effort, lungs clear to auscultation normal respiratory effort Cardiovascular: RRR, no murmur, no edema Rate/Rhythm: regular rate, regular rhythm and + tachycardic Gastrointestinal (Abdomen): + abdomen tender and abdomen soft; no guarding, abdomen not rigid, no hepatomegaly and no splenomegaly Left pelvic drain in place, draining purulent drainage, right pelvic drain with serosanguineous fluid, ileostomy intact, with output of solid stool and bilious fluid, midline incision intact, areas inferiorly and superiorly with separation and scant exudate, annalisa intact Skin: + rash beefy red rash under pannus and groin, with satellite lesion on thigh, non weeping Results & Data Vital Signs (Past 12 Hours) Vital Signs Temp Pulse Resp BP Pulse Ox 05/08/19 06:53 36.8 C 104 H 18 107/74 93 05/07/19 22:58 37.4 C 91 H 16 114/74 96
[2019-05-08] MEDS: AMOXICILLIN/CLAVULANATE 875 MG TAB PO SCH ×2 (08:23→18:06)
[2019-05-08] MEDS: POTASSIUM CHLORIDE 20 MEQ TABCR PO SCH ×2 (08:23→22:19)
[2019-05-08] MEDS: ZINC SULFATE 220 MG CAPSULE PO SCH ×2 (08:23→22:20)
[2019-05-08] MEDS: FAMOTIDINE 20 MG TAB PO SCH ×2 (08:24→22:19)
[2019-05-08] MEDS: MICONAZOLE NITRATE 2% CR 30 GM TUBE EXT SCH ×2 (08:24→22:21)
[2019-05-08] MEDS: INSULIN ASPART 100 UNITS/ML 3 ML PEN SC SCH ×4 (08:57→23:21)
--- NOTE | 2019-05-08 09:43 | Progress Note ---
DATE: 05/08/2019 Ms. Woody is unchanged clinically. Her chest x-ray yesterday on the lateral film showed a tiny effusion. I do not think is clinically relevant. I would check another x-ray in a week or so. Thank you for allowing us to be involved in the care of this patient. TREV
--- NOTE | 2019-05-08 12:05 | Nephrology Progress Note ---
Date of Service May 08, 2019 Assessment & Plan (1) Acute kidney injury: 39-year-old female with acute kidney injury in the setting of sepsis related to abdominal abscesses following complicated laparoscopic during hysterectomy with lysis of adhesions. Medical history also notable for diabetes mellitus which is treated with metformin. Hospital course complicated by acute blood loss anemia requiring packed red blood cell transfusion support. Noncontrast CT scan the abdomen and pelvis was updated on April 30. There is no evidence of obstruction. Urine studies are bland with acellular microscopy. Patient's clinical presentation is consistent with ATN versus AIN. Her volume status is euvolemic. Her blood pressures appropriate. Electrolytes are within normal limits. There is no indication for hemodialysis. Medications are appropriately dosed for kidney function. Creatinine remains stable at 2 milligram/deciliter. Closed perspective monitoring his encouraged but there is no additional evaluation necessary at this time. Once discharged, outpatient follow-up in the Nephrology Clinic will be arranged within 1 week (2) Diabetes: (3) S/P ileostomy: (4) Status post exploratory laparotomy: (5) Abdominal abscess: (6) Status post hysterectomy with oophorectomy: Subjective No acute events overnight. Marleny is resting comfortably in the bedside chair this morning. Overall she feels well. She denies significant pain. She denies any urinary complaints. She is breathing comfortably. Appetite is improving. Review of Systems Review of Systems: All systems reviewed & are unremarkable except as noted in HPI & below Physical Exam Constitutional: well developed; no acute distress Eyes: + anicteric sclerae; no conjunctival abnormality and no scleral abnormality ENMT: Mouth: no oral mucosal abnormality and oral mucous membranes not dry Neck: normal visual inspection and trachea midline Respiratory: normal respiratory effort Auscultation: lungs clear to auscultation bilaterally Cardiovascular: Rate/Rhythm: regular rate Heart Sounds: normal S1 and normal S2 Vessels: no JVD Extremities: no edema Gastrointestinal (Abdomen): Inspection/Auscultation: + abdominal surgical incision and + abdominal surgical drain present Percussion/Palpation: abdomen soft; no guarding Musculoskeletal: Extremities: no cyanosis and no clubbing Skin: normal turgor; no lesions Neurologic: Motor/Sensory: no tremor and no asterixis Psychiatric: Orientation: alert and oriented x 3 Results & Data Vital Signs (Past 12 Hours) Vital Signs Temp Pulse Resp BP Pulse Ox 05/08/19 06:53 36.8 C 104 H 18 107/74 93 Laboratory Results Laboratory Results - last 24 hr 05/07/19 05/07/19 05/07/19 11:57 17:22 20:47 Sodium Potassium Chloride Carbon Dioxide Anion Gap BUN Creatinine Est Cr Clr Drug Dosing Est GFR ( Amer) Est GFR (Non-Af Amer) BUN/Creatinine Ratio Glucose POC Glucose 110 H 71 117 H Calcium Phosphorus Albumin 05/08/19 05/08/19 05:02 08:01 Sodium 131 L Potassium 4.7 Chloride 98 Carbon Dioxide 26 Anion Gap 7.0 BUN 34 H Creatinine 1.96 H Est Cr Clr Drug Dosing 45.3 Est GFR ( Amer) 35.9 Est GFR (Non-Af Amer) 31.0 BUN/Creatinine Ratio 17.1 Glucose 110 H POC Glucose 142 H Calcium 9.3 Phosphorus 4.6 Albumin 2.7 L PG Care Time/CCT Total # of Minutes Spent Total Time Spent with Patient: Total time spent is greater than 50% in coordination of care (as documented) at patient's floor/unit and/or counseling patient: (1) Diabetes Diabetes mellitus complication status: with other specified complication 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
[2019-05-08] MEDS: TOPIRAMATE 100 MG TAB PO SCH (22:19)
[2019-05-08] MEDS: QUETIAPINE FUMARATE 200 MG TAB PO SCH (22:19)
[2019-05-08] MEDS: PARoxetine HCl 20 MG TAB PO SCH (22:20)
[2019-05-09] MEDS: OXYCODONE HCL IR 5 MG TAB (IMMEDIATE RELEASE) PO PRN ×5 (05:39→22:50)
[2019-05-09] MEDS: LEVOTHYROXINE SODIUM 75 MCG TABLET PO SCH (05:39)
[2019-05-09] MEDS: ALUMINUM/MAGNESIUM SUSP 30 ML UDC PO SCH ×3 (05:42→17:48)
[2019-05-09] MEDS: HEPARIN SOD 5,000 UNIT/0.5 ML VIAL SQ SCH ×3 (05:42→20:37)
--- NOTE | 2019-05-09 06:57 | Progress Note ---
Date of Service May 09, 2019 Assessment & Plan (1) S/P ileostomy: Pt and cannot care for ileostomy at this point and likely not safe for d/c with visiting nurses until able- pt education seems to be somewhat difficult may need additional help from stoma nurses who are not here today as far as I know pt req cont acute care- nurses working on pt education Results & Data Vital Signs (Past 12 Hours) Vital Signs Temp Pulse Resp BP Pulse Ox 05/08/19 22:48 37.2 C 92 H 16 113/76 95 PG Care Time/CCT Total # of Minutes Spent Total Time Spent with Patient: Total time spent is greater than 50% in coordination of care (as documented) at patient's floor/unit and/or counseling patient:
[2019-05-09] MEDS: ZINC SULFATE 220 MG CAPSULE PO SCH ×2 (09:04→20:37)
[2019-05-09] MEDS: AMOXICILLIN/CLAVULANATE 875 MG TAB PO SCH ×2 (09:05→17:48)
[2019-05-09] MEDS: FAMOTIDINE 20 MG TAB PO SCH ×2 (09:05→20:36)
[2019-05-09] MEDS: POTASSIUM CHLORIDE 20 MEQ TABCR PO SCH ×2 (09:05→20:37)
[2019-05-09] MEDS: MICONAZOLE NITRATE 2% CR 30 GM TUBE EXT SCH ×2 (09:06→20:35)
[2019-05-09] MEDS: INSULIN ASPART 100 UNITS/ML 3 ML PEN SC SCH ×4 (09:09→20:46)
[2019-05-09 10:14] LABS: BUN Creatinine Ratio 18.1 (10-20); Calcium 9.4 mg/dl (8.5-10.1); Creatinine Clr Calc Pharmacy 49.4 ml/min; Est GFR (African American) 39.8; Est GFR (Non-African American) 34.4; Potassium 4.8 mmol/L (3.5-5.1)
--- NOTE | 2019-05-09 11:36 | Nephrology Progress Note ---
Date of Service May 09, 2019 Assessment & Plan (1) Acute kidney injury: 39-year-old female with acute kidney injury in the setting of sepsis related to abdominal abscesses following complicated laparoscopic during hysterectomy with lysis of adhesions. Medical history also notable for diabetes mellitus which is treated with metformin. Hospital course complicated by acute blood loss anemia requiring packed red blood cell transfusion support. Noncontrast CT scan the abdomen and pelvis was updated on April 30. There is no evidence of obstruction. Urine studies are bland with acellular microscopy. Patient's clinical presentation is consistent with ATN versus AIN. Her volume status is euvolemic. Her blood pressures appropriate. Electrolytes are within normal limits. There is no indication for hemodialysis. Medications are appropriately dosed for kidney function. Creatinine slightly improved at 1.8 milligram/deciliter. Kidney function is improving. No additional evaluation is necessary at this time. Nephrology will sign off. I will arrange follow-up with the patient in the outpatient clinic with me within 2 weeks. (2) Diabetes: (3) S/P ileostomy: (4) Status post exploratory laparotomy: (5) Abdominal abscess: (6) Status post hysterectomy with oophorectomy: Subjective No acute events overnight. Marleny feels well. No complaints or concerns this morning. Review of Systems Review of Systems: All systems reviewed & are unremarkable except as noted in HPI & below Physical Exam Constitutional: well developed; no acute distress Eyes: + anicteric sclerae; no conjunctival abnormality and no scleral abnormality ENMT: Mouth: no oral mucosal abnormality and oral mucous membranes not dry Neck: normal visual inspection and trachea midline Respiratory: normal respiratory effort Auscultation: lungs clear to auscultation bilaterally Cardiovascular: Rate/Rhythm: regular rate Heart Sounds: normal S1 and normal S2 Vessels: no JVD Extremities: no edema Gastrointestinal (Abdomen): Inspection/Auscultation: + abdominal surgical incision and + abdominal surgical drain present Percussion/Palpation: abdomen soft; no guarding Musculoskeletal: Extremities: no cyanosis and no clubbing Skin: normal turgor; no lesions Neurologic: Motor/Sensory: no tremor and no asterixis Psychiatric: Orientation: alert and oriented x 3 Results & Data Vital Signs (Past 12 Hours) Vital Signs Temp Pulse Resp BP Pulse Ox 05/09/19 07:46 36.3 C L 85 16 104/71 95 Laboratory Results Laboratory Results - last 24 hr 05/08/19 05/08/19 05/08/19 12:01 17:09 20:14 Sodium Potassium Chloride Carbon Dioxide Anion Gap BUN Creatinine Est Cr Clr Drug Dosing Est GFR ( Amer) Est GFR (Non-Af Amer) BUN/Creatinine Ratio Glucose POC Glucose 133 H 112 H 123 H Calcium 05/09/19 05/09/19 08:24 09:40 Sodium 132 L Potassium 4.8 Chloride 99 Carbon Dioxide 23 Anion Gap 10.0 BUN 33 H Creatinine 1.80 H Est Cr Clr Drug Dosing 49.4 Est GFR ( Amer) 39.8 Est GFR (Non-Af Amer) 34.4 BUN/Creatinine Ratio 18.1 Glucose 188 H POC Glucose 103 H Calcium 9.4 PG Care Time/CCT Total # of Minutes Spent Total Time Spent with Patient: Total time spent is greater than 50% in coordination of care (as documented) at patient's floor/unit and/or counseling patient: (1) Diabetes Diabetes mellitus complication status: with other specified complication Diabetes 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
[2019-05-09] MEDS: QUETIAPINE FUMARATE 200 MG TAB PO SCH (20:35)
[2019-05-09] MEDS: TOPIRAMATE 100 MG TAB PO SCH (20:35)
[2019-05-09] MEDS: PARoxetine HCl 20 MG TAB PO SCH (20:36)
[2019-05-10] MEDS: ALUMINUM/MAGNESIUM SUSP 30 ML UDC PO SCH ×4 (00:36→18:57)
[2019-05-10] MEDS: LEVOTHYROXINE SODIUM 75 MCG TABLET PO SCH (06:17)
[2019-05-10] MEDS: HEPARIN SOD 5,000 UNIT/0.5 ML VIAL SQ SCH ×2 (06:18→13:22)
[2019-05-10] MEDS: OXYCODONE HCL IR 5 MG TAB (IMMEDIATE RELEASE) PO PRN ×4 (06:20→20:32)
[2019-05-10 07:04] VITALS: TEMP 97.3
[2019-05-10] MEDS: AMOXICILLIN/CLAVULANATE 875 MG TAB PO SCH ×2 (08:54→16:38)
[2019-05-10] MEDS: POTASSIUM CHLORIDE 20 MEQ TABCR PO SCH (08:54)
[2019-05-10] MEDS: FAMOTIDINE 20 MG TAB PO SCH (08:54)
[2019-05-10] MEDS: ZINC SULFATE 220 MG CAPSULE PO SCH (08:54)
[2019-05-10] MEDS: MICONAZOLE NITRATE 2% CR 30 GM TUBE EXT SCH (08:55)
[2019-05-10] MEDS: INSULIN ASPART 100 UNITS/ML 3 ML PEN SC SCH ×3 (08:56→18:44)
--- NOTE | 2019-05-10 14:48 | Surgery Progress Note ---
Date of Service May 10, 2019 Assessment & Plan (1) Abdominal abscess: Postoperative day #19 status post exploratory laparotomy with formation of ileostomy and drainage of abscess -vitals stable, afebrile - CT scan on 04/30 showed improvement of LLQ anterior intra-abdominal abscess and improvement of small bowel wall thickening - Abdominal pain post op improving Plan: Continue 10 mg oxycodone immediate release prn severe pain, need to try to decrease frequency of the 10 mg of Oxycodone. 5 mg of Oxycodone for moderate pain is ordered Continue PO Antibiotics, she will need prolonged course of oral antibiotics on discharge given purulent drainage in drains. Okay from surgical standpoint for discharge today with darin drains and prolonged course of PO Antibiotics with home health services. [place] removed and steri strips applied today f/u surgical office in [address] Zimmerman has seen and examined pt, agrees with above Subjective feeling better today pain is better, still taking Percocet 10 mg for pain no n/v tolerating diet "can I go home today" doing well with ostomy care today per patient and nurse Physical Exam Constitutional: WD/WN, vitals as above no acute distress Gastrointestinal (Abdomen): Inspection/Auscultation: + abdominal surgical incision (midline laparotomy incision with scabs present, annalisa intact) and + abdominal surgical drain present (Right cloudy serous, left purulent); abdomen not distended Percussion/Palpation: abdomen soft; no guarding and abdomen not rigid Ostomy pink and functioning Skin: + rash (in pannus) Psychiatric: Orientation: alert and oriented x 3 Results & Data Vital Signs (Past 12 Hours) Vital Signs Temp Pulse Resp BP Pulse Ox 05/10/19 13:55 77 18 165/73 H 94 05/10/19 07:03 36.3 C L 86 16 105/72 94
[2019-05-10 15:10] VITALS: O2SAT 100
--- NOTE | 2019-05-10 17:21 | Gynecologic Progress Note ---
Date of Service May 10, 2019 Assessment & Plan (1) Status post exploratory laparotomy: POD#19. Site of bowel perforation was not identified during ex-lap procedure; ileostomy loop was created; ileostomy bag in place and draining bilious fluid. - Patient continues to improve clinically - Pt continues to tolerate oral antibiotics (augmentin). -Continue diabetic diet -Pelvic drains remain in place. Patient to go home with drains. -Pain controlled with Oxycodone 10 mg. -Yeast in abdominal fold: antifungal creme, BID. -Cr level stable: Nephrology signed off and will follow on an outpatient basis -Agree with General Surgery in terms of discharge. From a Gynecological standpoint, Patient can be discharge. -Discharge order placed for 05/11/19 after home health care and wound care evaluates Patient. -Discharge medications sent to [facility] (augmentin, oxycodone, zofran, and antifungal creme) -General surgery/Wound care to order ostomy supplies Subjective Status post exploratory laparotomy: POD#19. Site of bowel perforation was not identified during ex-lap procedure; ileostomy loop was created; ileostomy bag in place and draining bilious fluid. - Patient continues to improve clinically - Pt continues to tolerate oral antibiotics (augmentin), began on 05/01/19 -Continue diabetic diet -Pelvic drains remain in place. Patient to go home with drains. -Pain controlled with Oxycodone 10 mg -Yeast in abdominal fold: antifungal creme, BID -Cr level stable Physical Exam Constitutional: WD/WN, vitals as above Respiratory: normal respiratory effort, lungs clear to auscultation Cardiovascular: RRR, no murmur, no edema Gastrointestinal (Abdomen): + abdominal surgical incision (midline laparotomy incision with scabs present, annalisa intact) and + abdominal surgical drain present (Right cloudy serous, left purulent); abdomen not distended Percussion/Palpation: abdomen soft; no guarding and abdomen not rigid Ostomy pink and functioning Skin: + rash (in pannus) Results & Data Vital Signs (Past 12 Hours) Vital Signs Temp Pulse Resp BP BP Pulse Ox 05/10/19 15:09 36.3 C L 89 17 122/85 100 05/10/19 07:03 36.3 C L 86 16 105/72 94
[2019-05-10] MEDS ORDERED: OXYCODONE IR HOME PACK PO PRN (18:36)
[2019-05-10 19:11] VITALS: PULSE 90
[2019-05-10 19:55] VITALS: BP 125/86
--- NOTE | 2019-05-14 10:58 | Discharge Summary ---
DATE OF ADMISSION: 04/19/2019 DATE OF DISCHARGE: 05/10/2019 CHIEF COMPLAINT: Nausea and tachycardia. HISTORY OF PRESENT ILLNESS: A 39-year-old female status post extensive laparoscopic lysis of adhesions, enterolysis, total laparoscopic hysterectomy, left salpingo-oophorectomy and cystoscopy on 04/16/2019. The patient was discharged home on postoperative day #1 on 04/17/2019. The patient returned to the Emergency Department on the evening of postop day #1 (04/17/2019) with nausea and vomiting and tachycardia. The patient was subsequently discharged home to follow up with primary care provider. The patient was unable to get an appointment with primary care provider and presented to an urgent care center on 04/18/2019 and they recommended the patient return back to the Emergency Department due to pallor. The patient was eventually admitted from the Emergency Department with sepsis. Infectious Disease was consulted and the patient was placed on IV antibiotics. CT scan was ordered at that time that revealed possible abscess. The patient had a negative chest x-ray. The patient continued with tachycardia on days 1 and 2 of her admission. The patient had a repeat CT scan of the abdomen and pelvis which showed multiple collections evident, dominant collection along the left superior pelvis with gross continuity of the rectosigmoid junction evidenced by oral contrast within the collection. Additional smaller superior and anterior collection without no convincing evidence of continuity with bowel given the absence of oral contrast. The patient also had a CT of the chest which revealed moderate right hydropneumothorax. Decision was made at this time for the patient to return to the operating room. The patient underwent an exploratory laparotomy with drainage of fluid collections, placement of drains and formation of loop ileostomy, and placement of a right tube thoracostomy, primary surgeon was Dr. Stanley Zimmerman. The patient continued on IV antibiotics with a slowly declining white blood cell count. The chest tube was subsequently removed and patient was clinically improving. The patient did have 2 pelvic drains, one on the right and one on the left side as well as a [place] drain within the abdominal incision which was closed with annalisa. The patient was slowly advanced to a diabetic diet which was tolerated well. The tachycardia had improved. The patient was eventually converted to oral antibiotics with continued improvement in the white blood cell count. Of note, patient did have a slight rise of her creatinine level and was seen by nephrology. Creatinine level stabilized. The patient was subsequently discharged home on 05/11/2019. The patient was discharged home on 05/10/2019 with home health care and wound care. The patient was given discharge instructions since going home with the ostomy and [address] The patient was also given discharge medications of antibiotics, narcotics, antinausea medication and antifungal medication for a skin rash. PAST MEDICAL HISTORY: 1. Allergic rhinitis due to other allergies. 2. Carbuncle. 3. Endometriosis. 4. Hypothyroidism. 5. Insomnia. 6. Major depressive disorder. 7. Diabetes type 2. FAMILY HISTORY: Diabetes in the maternal grandmother. ALLERGIES: No known drug allergies. REVIEW OF SYSTEMS: As stated in the HPI. PHYSICAL EXAMINATION: CONSTITUTIONAL: Vitals were within normal limits. RESPIRATION: Normal respiratory effort. LUNGS: Clear to auscultation. CARDIOVASCULAR: She had a regular rate and rhythm, no murmur, no edema. GASTROINTESTINAL: She had a positive abdominal surgical incision. It was midline laparotomy incision with annalisa present. Positive for abdominal surgical drain present on the right and the left. The abdomen was nondistended. It was soft. There was no guarding. The abdomen was not rigid. The ostomy was in place and it was pink and functioning and it had bilious and formed stool. SKIN: She had an erythematous rash in the pannus on the right lower quadrant consistent with a yeast infection. PHYSICAL EXAMINATION: VITAL SIGNS: Her temperature was 36.3, pulse 89, respirations 17, blood pressure 122/85 and pulse ox was 100. LABORATORY DATA: From 05/12/2019, white blood cell count was 9.62, hemoglobin was 9, hematocrit 28.9, platelets was 487. CONDITION ON DISCHARGE: Stable. OPERATIONS: On 04/16/2019, patient underwent a diagnostic laparoscopy, total laparoscopic hysterectomy, left salpingo-oophorectomy and cystoscopy by Dr. Hutchins. There was extensive lysis of adhesions and enterolysis performed by Dr. Stanley Zimmerman. Surgery was for endometriosis and chronic pelvic pain. The patient then had a second surgery on 04/21/2019. Primary surgeon was Dr. Zimmerman, commissary assistant Dr. Pam Hutchins and Dr. Venkatesh Grullon. PREOPERATIVE DIAGNOSES: Perforation of large bowel and right hydropneumothorax. PROCEDURE: Exploratory laparotomy with drainage of fluid collections, placement of drains and formation of loop ileostomy, placement of right tube thoracostomy. PLAN ON DISCHARGE: Included discharge instructions regarding activity, diet, followup appointments, medications and care of pelvic drains as well as ostomy site. TREV
== END 2019-05-10 20:40 | disposition home health service (06) | DRG 856 ==
LOC: ED 16:12 → SUATTDRO 22:07 → 2N 22:07 → 1E 04-21 02:55 → 2N 04-21 19:18 → 3N 04-27 14:31 → 3W 04-27 22:05

== ENCOUNTER 2019-08-30 06:35 | Observation (INO) ==
--- NOTE | 2019-08-20 10:25 | Anesthesiology Consultation ---
Date of Service August 20, 2019 Assessment & Plan (1) Encounter for pre-operative examination: Chart Review Chart Review: Acceptable Risk for Surgery and Patient NOT seen in Pre Admission Testing Consults Requested none History Surgery Operation Date: 08/30/19 08:50 Proposed Procedures p Reversal fo Ileostomy - Stanley Zimmerman MD Height/Weight Height: 5 ft 5 in Weight: 89.358 kg Allergies Allergy/AdvReac Type Severity Reaction Status Date / Time morphine AdvReac Intermediate NAUSEA Verified 08/19/19 14:56 VOMITING acetaminophen [From Percocet] AdvReac Nausea Verified 08/19/19 14:56 oxycodone [From Percocet] AdvReac Nausea Verified 08/19/19 14:56 Medications Home Medications Medication Instructions Recorded Confirmed Last Taken fluticasone propionate [Flonase 1 spray INTRANASAL QA 04/02/19 08/19/19 05/11/19 Allergy Relief] omeprazole 40 mg PO QAM 04/02/19 08/19/19 05/11/19 paroxetine HCl [Paxil] 40 mg PO HS 04/02/19 08/19/19 05/10/19 quetiapine [Seroquel] 200 mg PO HS 04/02/19 08/19/19 05/10/19 topiramate 100 mg PO HS 04/02/19 08/19/19 05/10/19 levothyroxine 75 mcg capsule 75 mcg PO QAM #90 cap 04/29/19 08/19/19 05/11/19 metformin 500 mg tablet 500 mg PO BID #180 tab 04/29/19 08/19/19 05/11/19 Past Medical History Medical History Depression Diabetes mellitus, type 2 NIDDM GERD (gastroesophageal reflux disease) controlled Hypothyroidism Obesity Post-operative complication 04/2019 [facility] HYSTER - BOWEL PERFORATION, HYDROPNEUMOTHORAX --> ileostomy, chest tube placement 04/20/2019: ex-lap, ileostomy, chest tube placement. Elective glidescope April 2019 hospital summary: A 39-year-old female status post extensive laparoscopic lysis of adhesions, enterolysis, total laparoscopic hysterectomy, left salpingo-oophorectomy and cystoscopy on 04/16/2019. The patient was discharged home on postoperative day #1 on 04/17/2019. The patient returned to the Emergency Department on the evening of postop day #1 (04/17/2019) with nausea and vomiting and tachycardia. The patient was subsequently discharged home to follow up with primary care provider. The patient was unable to get an appointment with primary care provider and presented to an urgent care center on 04/18/2019 and they recommended the patient return back to the Emergency Department due to pallor. The patient was eventually admitted from the Emergency Department with sepsis. Infectious Disease was consulted and the patient was placed on IV antibiotics. CT scan was ordered at that time that revealed possible abscess. The patient had a negative chest x-ray. The patient continued with tachycardia on days 1 and 2 of her admission. The patient had a repeat CT scan of the abdomen and pelvis which showed multiple collections evident, dominant collection along the left superior pelvis with gross continuity of the rectosigmoid junction evidenced by oral contrast within the collection. Additional smaller superior and anterior collection without no convincing evidence of continuity with bowel given the absence of oral contrast. The patient also had a CT of the chest which revealed moderate right hydropneumothorax. Decision was made at this time for the patient to return to the operating room. The patient underwent an exploratory laparotomy with drainage of fluid collections, placement of drains and formation of loop ileostomy, and placement of a right tube thoracostomy, primary surgeon was Dr. Stanley Zimmerman. The patient continued on IV antibiotics with a slowly declining white blood cell count. The chest tube was subsequently removed and patient was clinically improving. The patient did have 2 pelvic drains, one on the right and one on the left side as well as a Marta drain within the abdominal incision which was closed with annalisa. The patient was slowly advanced to a diabetic diet which was tolerated well. The tachycardia had improved. The patient was eventually converted to oral antibiotics with continued improvement in the white blood cell count. Of note, patient did have a slight rise of her creatinine level and was seen by nephrology. Creatinine level stabilized. The patient was subsequently discharged home on 05/11/2019. Past Family History Family History Grandmother (Maternal) Family history of diabetes mellitus Grandmother (Paternal) Family history of diabetes mellitus Grandfather (Paternal) Family history of esophageal cancer Other No family history of adverse response to anesthesia Past Surgical History Surgical History H/O oophorectomy RIGHT History of chest tube placement History of hysterectomy with unilateral oophorectomy 04/2019 [facility] History of laparotomy OVARIAN CYSTECTOMY Ileostomy, has currently Social History Smoking Status: Never smoker Do You Dip or Chew Tobacco: No Hx Alcohol Use: No Hx Substance Use: No Testing Laboratory Results Laboratory Tests 05/31/19 05/31/19 15:52 15:52 WBC 6.90 Hgb 10.2 L Hct 31.7 L Plt Count 317 Sodium 138 Potassium 4.1 Chloride 107 Carbon Dioxide 24 BUN 14 Creatinine 0.98 Glucose 84 Electrocardiogram Date: 04/22/19 Findings: + ST @ (109) Sinus tachycardia Otherwise normal ECG When compared with ECG of 19-APR-2019 17:45, Nonspecific T wave abnormality no longer evident in Anterior leads Confirmed by Khris Lr ([id number]) on 04/22/2019 7:53:43 PM Chest X-Ray Date: 05/07/19 XR chest 2V PA/lateral HISTORY: pleural effusions COMPARISON: Chest 05/06/2019. FINDINGS: There are low lung volumes. The heart remains mildly enlarged. Small bilateral pleural effusions and bibasilar densities persist. This is not significantly changed. No pneumothorax. The upper lung zones are clear. IMPRESSION: No significant change in the small bilateral pleural effusions and bibasilar densities.
[~2019-08-30 06:35] MED LIST changes: +cefOXitin 2,000 MG in DEXTROSE 5% 50 ML IV SCH
--- NOTE | 2019-08-30 07:33 | History & Physical Bridge Note ---
Date of Service August 30, 2019 History & Physical Bridge Note I have examined the patient, reviewed the History & Physical and in the interval since the performance of the History & Physical I have noted the following changes of clinical significance: no changes noted
[2019-08-30] MEDS ORDERED: ePHEDrine sulfate 50 MG/ML AMP IV PRN (08:11)
[2019-08-30] MEDS ORDERED: HYDROmorphone INJ 2 MG/ML SYR/VIAL IV PRN (08:11)
[2019-08-30] MEDS ORDERED: ONDANSETRON INJ 2 MG/ML 2 ML VIAL IV PRN (08:11)
[2019-08-30] MEDS ORDERED: ATROPINE SULFATE 0.1 MG/ML 10ML SYR IV PRN (08:11)
[2019-08-30] MEDS ORDERED: PROMETHAZINE HCL 12.5 MG in SODIUM CHLORIDE 0.9% 50 ML IV PRN (08:11)
[2019-08-30] MEDS ORDERED: PROPOFOL IV EMULSION 10 MG/ML 20 ML VIAL IV ONE (09:17)
[2019-08-30] MEDS ORDERED: MIDAZOLAM HCL 1 MG/ML 2ML VIAL ONE (09:17)
[2019-08-30] MEDS ORDERED: GLYCOPYRROLATE 0.2 MG/ML VIAL ONE ×2 (09:17→11:44)
[2019-08-30] MEDS ORDERED: ONDANSETRON INJ 2 MG/ML 2 ML VIAL ONE (09:17)
[2019-08-30] MEDS ORDERED: NEOSTIGMINE METHYLSULFATE 5 MG/5 ML SYR ONE (09:17)
[2019-08-30] MEDS ORDERED: fentaNYL citrate 100 MCG/2 ML VIAL ONE ×2 (09:17→10:58)
[2019-08-30] MEDS ORDERED: LIDOCAINE HCL 2% 2 ML VIAL/AMP(20MG/ML) INFIL ONE (09:17)
--- NOTE | 2019-08-30 11:14 | Post Operative Brief Note ---
Immediate Post Op Note v1 Date of Surgery August 30, 2019 Pre & Post Diagnosis Operation Date: 08/30/19 08:20 Pre-Op Diagnosis: Ileostomy in Place Post-Op Diagnosis: same I identified the patient and participated in the time-out.: Yes Procedure Operation Date: 08/30/19 08:20 Actual Procedures p Reversal of Ileostomy(Not Applicable) - Stanley Zimmerman MD Surgeon Stanley Zimmerman MD Pre Wave Assembler Emily Barnhart PA-C Estimated Blood Loss 10 Findings Consistent with Post-Op Diagnosis Drains [place] Catheter Anesthesia Type General Complications none
[2019-08-30] MEDS: fentaNYL citrate 100 MCG/2 ML VIAL IV PRN ×3 (11:47→12:20)
--- NOTE | 2019-08-30 12:37 | Anesthesiology Progress Note ---
Date of Service August 30, 2019 Anesthesia Post Procedure Vital Signs Vital Signs: Temp Pulse Pulse Resp BP BP Pulse Ox 08/30/19 12:35 37.4 C 99 H 14 134/85 99 08/30/19 12:25 94 H 18 136/85 99 08/30/19 12:15 97 H 18 138/89 99 08/30/19 12:05 92 H 13 135/85 100 08/30/19 11:55 90 18 134/84 100 08/30/19 11:45 94 H 22 137/87 100 08/30/19 11:36 36.0 C L 109 H 16 152/91 H 100 08/30/19 06:51 36.6 C 87 16 131/85 99 Pain Intensity Right Abdomen: Pain Intensity: 4 Transfer of Care Handoff Completed per policy Notes Mental Status: alert / awake / arousable and participated in evaluation Patient Amnestic to Procedure: Yes Nausea / Vomiting: adequately controlled Pain: adequately controlled Airway Patency, RR, SpO2: stable & adequate BP & HR: stable & adequate Hydration State: stable & adequate Anesthetic Complications: no major complications apparent and Pt Satisfied with anesthetic care
[2019-08-30] MEDS ORDERED: MoRPHine SULFATE 4 MG/ML 1 ML CARP\\VIAL IV PRN (13:02)
[2019-08-30] MEDS ORDERED: OXYCODONE/ACETAMINOPHEN 5mg/325mg TAB PO PRN (13:02)
[2019-08-30] MEDS: D5W AND 1/2NSS + 20MEQ KCL 20 MEQ/1,000 ML BAG IV SCH ×2 (13:38→22:33)
[2019-08-30] MEDS ORDERED: HYDROmorphone INJ 1 MG/ML SYRINGE IV PRN (13:42)
[2019-08-30] MEDS ORDERED: ACETAMINOPHEN 325 MG TAB PO PRN (13:43)
[2019-08-30] MEDS ORDERED: TRAMADOL HCL 50 MG TABLET PO PRN (13:43)
[2019-08-30] MEDS ORDERED: HYDROmorphone INJ 1 MG/ML SYRINGE ONE (13:57)
--- NOTE | 2019-08-30 14:11 | Operative Report ---
DATE OF OPERATION: 08/30/2019 PREOPERATIVE DIAGNOSIS: Ileostomy in place. POSTOPERATIVE DIAGNOSIS: Ileostomy in place. PROCEDURE: Reversal of ileostomy. SURGEON: Stanley Zimmerman MD BRICKMASON CONTRACTOR: Emily Barnhart PA-C FINDINGS: The terminal ileum that was forming the ileostomy was easily away from the surrounding tissues. It appeared normal. There was very little adhesion to the anterior abdominal wall. TECHNIQUE: The patient was given a general anesthetic and the area was prepped and draped in the usual sterile fashion. A small incision was made medially and then laterally in the skin to identify the subcutaneous fat. I then worked superiorly and then inferiorly the bowel wall away from the dermis. That allowed me then to enter the subcutaneous tissue. The small bowel was then dissected away from the subcutaneous tunnel canal using blunt dissection. There were some dense adhesion near the fascia. This was divided using blunt and sharp dissection where appropriate. I was then able to enter the abdomen on the superomedial side. That allowed me then to work on the superolateral side and separate any further attachments. I then worked inferiorly and around circumferentially, attachment using blunt cautery and sharp dissection where appropriate until it was completely freed. The small bowel was able to be eviscerate with ease. I then resected the portion of the small bowel that had been forming the ileostomy. I chose a site proximal and distal to that, the mesentery away from the wall of the bowel and then divided the bowel using the SYL stapler. The intervening portion of the mesentery was removed using a clamp, clamp and divide and ligate technique with 2-0 silk ties. The anastomosis was then performed in a functional end-to-end manner. The wall of each side of the small bowel was approximated to each other at the mesentery using 3-0 silk stay sutures. The antimesenteric border of each staple line was removed and a limb of the stapler was placed into each limb of the bowel and the stapler was fired to perform the anastomosis. The common opening was closed with a TA stapler, making sure to incorporate serosa on each side. Additional 3-0 silk sutures were placed. The mesenteric opening was then closed with interrupted 2-0 Vicryl sutures. There was one area of bleeding near the one staple line which was controlled with 3-0 silk [id number] suture. The small bowel including the anastomosis was then easily placed back into the abdominal wall. I then defined the edges of the fascia and the sac away, exposing the edge of the fascia around the entire circumference. The fascia was then closed with [id number] sutures of #1 PDS. The wound was inspected for bleeding and none was seen. It was loosely closed with annalisa. Estimated blood loss was 10 mL. Sponge, needle and instrument counts were correct prior to closure. The skin was cleansed, and a dressing placed. The patient was transferred to recovery in stable condition. I attest to the content of the Intraoperative Record and any orders documented therein. Any exception s are noted below.
[2019-08-30] MEDS ORDERED: SODIUM CHLORIDE 0.65% NA SOLN 45 ML (OCEAN) PRN (17:58)
[2019-08-30] MEDS: METFORMIN HCL 500 MG TAB PO SCH (18:30)
[2019-08-30] MEDS: TOPIRAMATE 100 MG TAB PO SCH (20:50)
[2019-08-30] MEDS: QUETIAPINE FUMARATE 200 MG TAB PO SCH (20:50)
[2019-08-30] MEDS: PARoxetine HCl 20 MG TAB PO SCH (20:50)
[2019-08-30] MEDS: HYDROmorphone INJ 0.5 MG/0.5 ML SYR IV PRN (22:36)
[2019-08-31] MEDS: HYDROmorphone INJ 0.5 MG/0.5 ML SYR IV PRN ×3 (01:35→14:07)
[2019-08-31] MEDS: LEVOTHYROXINE SODIUM 75 MCG TABLET PO SCH (04:53)
--- NOTE | 2019-08-31 07:09 | Surgery Progress Note ---
Date of Service August 31, 2019 Assessment & Plan (1) Status post reversal of ileostomy: Postoperative day #1 status post reversal of ileostomy No nausea or vomiting Encourage ambulation Would continue clears for now Subjective Postoperative day #1 status post reversal of ileostomy Ambulated last night Tolerating clear liquids at this time No flatus or bowel movement Denies nausea Would like to have oxycodone without Tylenol saying that Tylenol causes her to be sick Physical Exam Gastrointestinal (Abdomen): Inspection/Auscultation: normal bowel sounds and + abdominal surgical incision (Dressing with drainage as expected); abdomen not distended Percussion/Palpation: + abdomen tender (Incisional only) Results & Data Vital Signs (Past 12 Hours) Vital Signs Temp Pulse Resp BP Pulse Ox 08/31/19 02:50 36.8 C 91 H 16 124/77 96 08/30/19 23:15 36.8 C 93 H 16 131/81 99 08/30/19 19:34 37 C 99 H 16 124/85 98
[2019-08-31] MEDS: D5W AND 1/2NSS + 20MEQ KCL 20 MEQ/1,000 ML BAG IV SCH ×2 (08:06→17:45)
--- NOTE | 2019-08-31 08:38 | Anesthesiology Progress Note ---
Date of Service August 31, 2019 Anesthesia Post Procedure Vital Signs Vital Signs: Temp Pulse Pulse Resp BP Pulse Ox 08/31/19 07:28 36.8 C 88 16 127/83 95 08/31/19 02:50 36.8 C 91 H 16 124/77 96 08/30/19 23:15 36.8 C 93 H 16 131/81 99 08/30/19 19:34 37 C 99 H 16 124/85 98 08/30/19 16:04 37.1 C 108 H 18 131/83 99 08/30/19 15:13 37.1 C 99 H 18 138/88 99 08/30/19 14:50 36.9 C 98 H 18 127/87 99 08/30/19 13:55 36.9 C 94 H 18 147/93 H 99 08/30/19 13:32 18 132/87 99 08/30/19 13:25 36.9 C 93 H 18 145/93 H 99 08/30/19 12:55 37.0 C 96 H 16 122/78 99 08/30/19 12:35 37.4 C 99 H 14 134/85 99 08/30/19 12:25 94 H 18 136/85 99 08/30/19 12:15 97 H 18 138/89 99 08/30/19 12:05 92 H 13 135/85 100 08/30/19 11:55 90 18 134/84 100 08/30/19 11:45 94 H 22 137/87 100 08/30/19 11:36 36.0 C L 109 H 16 152/91 H 100 Pain Intensity Right Abdomen: Pain Intensity: 7 Notes Mental Status: alert / awake / arousable and participated in evaluation Nausea / Vomiting: adequately controlled Pain: adequately controlled Airway Patency, RR, SpO2: stable & adequate BP & HR: stable & adequate Hydration State: stable & adequate
[2019-08-31] MEDS: METFORMIN HCL 500 MG TAB PO SCH ×2 (08:52→17:45)
[2019-08-31] MEDS: FLUTICASONE PROPIONATE NA SPR 16 GM BTL SCH (08:52)
[2019-08-31] MEDS: PANTOprazole 40 MG TAB PO SCH (08:52)
[2019-08-31] MEDS: OXYCODONE HCL IR 5 MG TAB (IMMEDIATE RELEASE) PO PRN ×3 (08:55→21:40)
[2019-08-31] MEDS: ONDANSETRON INJ 2 MG/ML 2 ML VIAL IV PRN ×2 (14:00→17:46)
[2019-08-31] MEDS: TOPIRAMATE 100 MG TAB PO SCH (21:39)
[2019-08-31] MEDS: PARoxetine HCl 20 MG TAB PO SCH (21:40)
[2019-08-31] MEDS: QUETIAPINE FUMARATE 200 MG TAB PO SCH (21:49)
[2019-09-01] MEDS: D5W AND 1/2NSS + 20MEQ KCL 20 MEQ/1,000 ML BAG IV SCH ×3 (03:51→23:18)
[2019-09-01] MEDS: LEVOTHYROXINE SODIUM 75 MCG TABLET PO SCH (06:13)
--- NOTE | 2019-09-01 07:26 | Surgery Progress Note ---
Date of Service September 01, 2019 Assessment & Plan (1) Status post reversal of ileostomy: Postoperative day #2 status post reversal of ileostomy Abdomen is benign Can advance to full liquid diet Strongly encouraged her to get out of bed and ambulate If she is able to do that can then discontinue [place] Subjective Postoperative day #2 status post reversal of ileostomy Feels like she needs to pass gas or bowels but has not yet Had some mild nausea and vomited once yesterday No nausea at present Had difficulty with urination yesterday and [place] catheter placed with 1100 out at that time. She has had another thousand out overnight. Did not ambulate well yesterday Afebrile Physical Exam Gastrointestinal (Abdomen): Inspection/Auscultation: normal bowel sounds; abdomen not distended Percussion/Palpation: + abdomen tender (Incisional only) and abdomen soft Results & Data Vital Signs (Past 12 Hours) Vital Signs Temp Pulse Resp BP Pulse Ox 09/01/19 07:11 37.1 C 96 H 16 116/72 96 08/31/19 23:06 36.7 C 97 H 16 111/75 95
[2019-09-01] MEDS: METFORMIN HCL 500 MG TAB PO SCH ×2 (08:03→17:59)
[2019-09-01] MEDS: FLUTICASONE PROPIONATE NA SPR 16 GM BTL SCH (08:03)
[2019-09-01] MEDS: ONDANSETRON INJ 2 MG/ML 2 ML VIAL IV PRN ×2 (08:03→15:31)
[2019-09-01] MEDS: PANTOprazole 40 MG TAB PO SCH (08:03)
[2019-09-01] MEDS: OXYCODONE HCL IR 5 MG TAB (IMMEDIATE RELEASE) PO PRN ×2 (09:28→17:09)
[2019-09-01] MEDS: TOPIRAMATE 100 MG TAB PO SCH (20:48)
[2019-09-01] MEDS: QUETIAPINE FUMARATE 200 MG TAB PO SCH (20:48)
[2019-09-01] MEDS: PARoxetine HCl 20 MG TAB PO SCH (20:49)
[2019-09-02] MEDS: LEVOTHYROXINE SODIUM 75 MCG TABLET PO SCH (05:07)
--- NOTE | 2019-09-02 07:48 | Surgery Progress Note ---
Date of Service September 02, 2019 Assessment & Plan (1) Status post reversal of ileostomy: Postoperative day #3 status post reversal of ileostomy Doing well Bowel function is returned We will placed on regular diet for breakfast and lunch today If tolerates the regular diet she can be discharged this afternoon Subjective Postoperative day #3, status post reversal of ileostomy Now passing urine without Mendosa Had 2 bowel movements Having very little pain Tolerated full liquid diet without nausea or vomiting Physical Exam Gastrointestinal (Abdomen): Inspection/Auscultation: normal bowel sounds and + abdominal surgical incision (Clean, dry and intact); abdomen not distended Percussion/Palpation: + abdomen tender (Minimal incisional) and abdomen soft Results & Data Vital Signs (Past 12 Hours) Vital Signs Temp Pulse Resp BP Pulse Ox 09/02/19 07:21 36.7 C 83 16 118/79 97 09/01/19 23:11 36.6 C 104 H 16 123/78 97
[2019-09-02] MEDS: FLUTICASONE PROPIONATE NA SPR 16 GM BTL SCH (08:00)
[2019-09-02] MEDS: METFORMIN HCL 500 MG TAB PO SCH (08:01)
[2019-09-02] MEDS: PANTOprazole 40 MG TAB PO SCH (08:01)
[2019-09-02] MEDS: OXYCODONE HCL IR 5 MG TAB (IMMEDIATE RELEASE) PO PRN (14:48)
--- NOTE | 2019-09-03 11:15 | Discharge Summary ---
Date of Service September 03, 2019 Admission HPI Per Admitting Provider Marleny presented to [facility] for outpatient elective reversal of ileostomy by Dr. Zimmerman. Principal Diagnosis Ileostomy in place Discharge Data Allergies Allergy/AdvReac Type Severity Reaction Status Date / Time morphine AdvReac Intermediate NAUSEA Verified 08/30/19 06:45 VOMITING oxycodone [From Percocet] AdvReac Intermediate Nausea Verified 08/30/19 06:45 Procedures Performed Operation Date: 08/30/19 08:20 Actual Procedures p Reversal of Ileostomy(Not Applicable) - Stanley Zimmerman MD Hospital Course (1) Status post reversal of ileostomy: Patient was taken to operating room for reversal of ileostomy by Dr. Zimmerman. Patient tolerated procedure well and was transferred to recovery room than to medical/surgical floor for postoperative care. POD # 1 vitals stable, afebrile, moderate pain, no return of bowel function yet, and tolerating clear liquids. Clear liquids were continued. Advised to ambulate. POD # 2 vitals stable, afebrile, pain moderate. Not much ambulation. No return of bowel function yet. Encouraged to ambulate. Clear liquids continued. POD #3 vitals stable, afebrile, Bowel function returned, diet advanced to regular diet which she tolerated well. She was discharged home in afternoon on POD # 3 in stable condition. Total Time Total Time Spent Total Time Spent (In Minutes): 20 Total Time Includes: Examination of the Patient, Discharge Planning and Medication Reconciliation Discharge Plan Discharge Items Patient Disposition: Home - Self-Care Reason For Visit: Ileostomy in Place Discharge Diagnosis: Reversal of Ileostomy Activity: Per Instructions section Non-emergency contact: Surgeon Call non-emergency contact if: your pain is not controlled, your pain is concerning for you, you have a fever, your temperature is above 101, your wound has increased redness, your wound has increased drainage and your wound pain has increased Follow-up/Referrals: Ron Mccracken MD [Primary Care Provider] - 09/07/19 12:45 pm (Please arrive for your appointment by 12:30p.m. If you need to reschedule this appointment, please call [phone]. Your appointment is with the JUAN ANTONIO Kumar.) Diet: Low Fiber Addtl Attending Provider Instructions: Post-Surgical ~Discharge Instructions Activity Recommendations: - lifting limitation: (10 pounds for 6 weeks), - exercise/sex/sports limit: (nonstrenuous until cleared by surgeon but walking is encouraged daily to prevent blood clots from forming in your legs), - driving or machine use limit: (no driving while taking narctoic pain medication or until pain free), - Shower/bathe limit: (may shower tonight) Diet: - Low fiber diet for 4 weeks SPECIAL CARE INSTRUCTIONS: - May shower. Let water run over area and pat dry. Recover incision with dressing daily. - surgical annalisa will be removed in office - Call the surgeon's office with any questions or concerns - - (ex. temperature higher than 101 degrees F, excessive bleeding or pain). MEDICATIONS: - Resume previous medications unless instructed otherwise by your surgeon. - Ibuprofen 600 mg every 6 hours with food - Tylenol 650 mg every 6 hours as needed - Oxycodone every 4 hours, as needed for pain FOLLOW UP VISIT: - If not already scheduled, please call the office to schedule a follow-up appointment next Friday with Dr. Zimmerman Office number Pending Studies at Discharge: No Stand-Alone Forms: [facility], Opioid Pain Management, Smoking Cessation Medications and DC Order Prescriptions: New oxycodone 5 mg tablet 5 mg PO Q4H PRN (Reason: pain) Qty: 10 RF: 0 Continued metformin 500 mg tablet 500 mg PO BID Qty: 180 RF: 1 levothyroxine 75 mcg capsule 75 mcg PO QAM Qty: 90 RF: 1 quetiapine [Seroquel] 200 mg Tablet 200 mg PO HS RF: 0 omeprazole 40 mg Capsule,Delayed Release(Dr/Ec) 40 mg PO QAM RF: 0 paroxetine HCl [Paxil] 40 mg Tablet 40 mg PO HS RF: 0 topiramate 100 mg Tablet 100 mg PO HS RF: 0 fluticasone propionate [Flonase Allergy Relief] 50 mcg/actuation [place],Suspension 1 spray INTRANASAL QAM RF: 0 Discharge Orders: Discharge Order (Routine); Ordered 09/02/19 Ordered By: Emily James/Other Patient Handouts: Abdominal Pain, Bowel Surg Recovery Admission Data Admit Date/Time: 09/01/19 13:07 Attending Provider: Stanley Zimmerman Admit Provider: Stanley Zimmerman Primary Care Provider: Ron Mccracken V. Other Interventions: Discharge Summary Assessment (RN) Last Done: 09/02/19 15:10 DC Date/Time DO NOT enter until pt leaves facility: 09/02/19 16:16
== END 2019-09-02 16:16 | disposition home or self-care (01) | DRG 331 ==
LOC: 3W 06:35 → ASU 06:35

== ENCOUNTER 2020-03-04 01:49 | Inpatient (IN) ==
[2020-03-04] MEDS ORDERED: KETOROLAC TROMETHAMINE 15 MG/ML VIAL IV STA (02:17)
[2020-03-04] MEDS ORDERED: ONDANSETRON INJ 2 MG/ML 2 ML VIAL IV STA (02:17)
[2020-03-04 02:50] LABS: Basophils # (auto) 0.03 K/uL (0-0.2); Basophils % (auto) 0.3 %; Eosinophils # (auto) 0.15 K/uL (0-0.5); Eosinophils % (auto) 1.5 %; Hematocrit (blood only) 36.5 % (37-47); Hemoglobin 12.3 g/dL (12.0-16.0); Immature Granulocytes # (auto) 0.05 K/uL (0.00-0.02); Immature Granulocytes % (auto) 0.5 %; Lymphocytes # (auto) 1.98 K/uL (1.2-3.4); Lymphocytes % (auto) 20.4 %; Mean Corpuscular Hemoglobin 25.6 pg (25-34); Mean Corpuscular Hgb Conc 33.7 g/dL (32-36); Mean Corpuscular Volume 75.9 fL (80-100); Mean Platelet Volume 10.8 fL (7.4-10.4); Monocytes # (auto) 0.49 K/uL (0.11-0.59); Neutrophils # (auto) 7.01 K/uL (1.4-6.5); Neutrophils % (auto) 72.3 %; Platelet Count 231 K/uL (130-400); RDW Coefficient of Variation 15.7 % (11.5-14.5); RDW Standard Deviation 43.4 fL (36.4-46.3); Red Blood Count 4.81 M/uL (4.2-5.4); White Blood Count 9.71 K/uL (4.8-10.8)
[2020-03-04 03:08] LABS: Albumin Level 3.8 gm/dl (3.4-5.0); BUN Creatinine Ratio 17.4 (10-20); Calcium 9.8 mg/dl (8.5-10.1); Creatinine Clr Calc Pharmacy 114.8 ml/min; Est GFR (African American) 112.9; Est GFR (Non-African American) 97.4; Potassium 3.7 mmol/L (3.5-5.1)
[2020-03-04 03:11] LABS: Bilirubin,Total 0.5 mg/dl (0.2-1); Total Protein 7.8 gm/dl (6.4-8.2)
[2020-03-04] MEDS ORDERED: IOVERSOL 100ml IV ONE (03:44)
--- NOTE | 2020-03-04 04:46 | Emergency Department Note ---
History of Present Illness General Chief complaint: Abdominal Pain Time Seen by Provider: 03/04/20 02:02 Source: patient Mode of arrival: ambulatory Limitations: no limitations History of Present Illness Maximum Pain Intensity: 0 This patient is a 39-year-old female who presents to the emergency department for evaluation of abdominal pain. The patient reports that her pain started about 12 hours ago after eating pizza. She states the pain is intermittent but occurs every few minutes and is severe when it does occur. She has some slight nausea but no vomiting. She did have a normal bowel movement after the pain began. She denies any urinary symptoms or fevers. She reports that she has had similar episodes over the past several months, but they are less severe in nature. Typically, she stops eating and the pain resolves. She has tried medications in the past without relief. She took Tums tonight without relief. She rates her pain an 8/10. She has had a prior hysterectomy and during that they nicked the bowel, so she had to have an ileostomy and later reversal. Home Medications Home Medications Medication Instructions Recorded Confirmed Type omeprazole 40 mg PO QAM 04/02/19 03/04/20 History paroxetine HCl [Paxil] 40 mg PO QAM 04/02/19 03/04/20 History metformin 500 mg tablet 500 mg PO BID #180 tab 04/29/19 03/04/20 Rx blood sugar diagnostic #10 ea 10/05/19 10/05/19 History lancets 28 gauge #25 ea 10/05/19 10/05/19 History quetiapine 300 mg PO HS 03/04/20 03/04/20 History topiramate 50 mg PO BID 03/04/20 03/04/20 History Allergies Allergy/AdvReac Type Severity Reaction Status Date / Time morphine AdvReac Intermediate NAUSEA Verified 03/04/20 04:18 VOMITING oxycodone [From Percocet] AdvReac Intermediate Nausea Verified 03/04/20 04:18 Past Med/Surg History Medical History Depression Diabetes mellitus, type 2 NIDDM GERD (gastroesophageal reflux disease) controlled Hypothyroidism Obesity Post-operative complication 04/2019 [facility] HYSTER - BOWEL PERFORATION, HYDROPNEUMOTHORAX --> ileostomy, chest tube placement Surgical History H/O oophorectomy RIGHT History of chest tube placement History of hysterectomy with unilateral oophorectomy 04/2019 [facility] History of laparotomy OVARIAN CYSTECTOMY Ileostomy, has currently S/P appendectomy Status post reversal of ileostomy Family History Grandmother (Maternal) Family history of diabetes mellitus Grandmother (Paternal) Family history of diabetes mellitus Grandfather (Paternal) Family history of esophageal cancer Other No family history of adverse response to anesthesia Denies family history of Ovarian cancer Prostate cancer Myocardial infarction Breast cancer Colorectal cancer Stroke Social History Smoking Status: Never smoker Second Hand Exposure: No; Hx Alcohol Use: No Hx Substance Use: No Preferred Language: Slovak 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: Effective Visual Impairment: No Limitations Hearing Ability: Normal Drosophere Operator Required: No Beliefs That Will Affect Care: None marital status: Current Living Situation: Spouse current occupational status: employed Other Information That Helps Us Care for You: No Feels Safe at Home: Yes Safety Concerns: Feels Safe At This Time Dental Care, Regularly: Yes Seatbelt Use: always Sunscreen Use: Yes Review of Systems A total of 10 systems reviewed and were otherwise negative Physical Exam Vital Signs Vital Signs - 24 hr 03/04/20 01:59 03/04/20 02:35 03/04/20 03:00 Temperature 36.8 C Temperature Source Oral Pulse Rate 89 Pulse Rate [Apical] 84 Respiratory Rate 18 18 Respiratory Effort / Characteristics Non-Labored Respiratory Depth Normal Normal Blood Pressure 146/100 H Blood Pressure [Right Arm] 125/87 Blood Pressure Mean 115 Blood Pressure Mean [Right Arm] 99 Pulse Oximetry 100 97 97 Oxygen Delivery Method Room Air Room Air Room Air Sepsis Recent Fever Within 48 Hours No Sepsis New/Unexplained Change in Mental Status No Sepsis Action Taken by Nursing No Action Required 03/04/20 04:00 03/04/20 05:00 Temperature Temperature Source Pulse Rate Pulse Rate [Apical] 85 89 Respiratory Rate 17 19 Respiratory Effort / Characteristics Respiratory Depth Normal Normal Blood Pressure Blood Pressure [Right Arm] 122/82 129/79 Blood Pressure Mean Blood Pressure Mean [Right Arm] 95 95 Pulse Oximetry 97 98 Oxygen Delivery Method Room Air Sepsis Recent Fever Within 48 Hours Sepsis New/Unexplained Change in Mental Status Sepsis Action Taken by Nursing VITALS: Vitals are noted on the nurse's note and reviewed by myself. Vital signs stable. GENERAL: This is a 39-year-old female, in no acute distress, well-developed well-nourished. SKIN: The skin was without rashes. EYES: Pupils equal round and reactive to light and accommodation. MOUTH: Mucous membranes moist. Tonsils are not enlarged. Pharynx without erythema or exudate. NECK: Supple without nuchal rigidity. No lymphadenopathy. HEART: Regular rate and rhythm without murmurs gallops or rubs. LUNGS: Clear to auscultation bilaterally without wheezes, rales or rhonchi. ABDOMEN: Positive bowel sounds x 4. Soft, obese abdomen. There is moderate tenderness to palpation in the right lower quadrant with mild tenderness in the right upper quadrant and left upper quadrant. No guarding or rebound tenderness. NEURO: Patient was alert and oriented to person place and time. Course Consultations Consultation #1: Dr. Sheehan [facility] hospitalist Administered Medications Diphenhydramine HCl (Diphenhydramine Hcl 50 Mg/Ml Vial) 50 mg IV Q6H PRN PRN Reason: Insomnia Stop: 04/03/20 06:59 Last Admin: 03/04/20 07:12 Dose: 50 mg Documented by: [id number] Lactated Ringer's (Lr) 1,000 mls @ 125 mls/hr IV .Q8H JANICE Stop: 04/03/20 06:35 Last Admin: 03/04/20 06:45 Dose: 125 mls/hr Documented by: [id number] Discontinued Medications Ioversol (Ioversol 100ml) 94 ml IV ONCE ONE Stop: 03/04/20 03:45 Last Admin: 03/04/20 03:44 Dose: 94 ml Documented by: [id number] Ketorolac Tromethamine (Ketorolac Tromethamine 15 Mg/Ml Vial) 15 mg IV NOW STA Stop: 03/04/20 02:18 Last Admin: 03/04/20 02:34 Dose: 15 mg Documented by: [id number] Ondansetron HCl (Ondansetron Inj 2 Mg/Ml 2 Ml Vial) 4 mg IV NOW STA Stop: 03/04/20 02:18 Last Admin: 03/04/20 02:34 Dose: 4 mg Documented by: [id number] Medical Decision Making Differential Diagnosis Differential diagnosis includes appendicitis, diverticulitis, bowel obstruction, inflammatory bowel disease, renal colic, PUD, biliary pathology, pancreatitis, mesenteric ischemia, aortic pathology, infection, genitourinary, UTI, perforated viscus, among others. Medical Records Attestation: I reviewed the patient's medical records. Home Medications Current Medication List: was personally reviewed by me Laboratory Data Attestation: I reviewed the patient's lab results. Result diagrams: 03/04/20 02:27 03/04/20 02:27 Lab Results 03/04/20 03/04/20 Range/Units 02:27 02:27 WBC 9.71 (4.8-10.8) K/uL RBC 4.81 (4.2-5.4) M/uL Hgb 12.3 (12.0-16.0) g/dL Hct 36.5 L (37-47) % MCV 75.9 L (80-100) fL MCH 25.6 (25-34) pg MCHC 33.7 (32-36) g/dL RDW Std Deviation 43.4 (36.4-46.3) fL RDW Coeff of Mine 15.7 H (11.5-14.5) % Plt Count 231 (130-400) K/uL MPV 10.8 H (7.4-10.4) fL Immature Gran % (Auto) 0.5 % Neut % (Auto) 72.3 % Lymph % (Auto) 20.4 % [place] % (Auto) 5.0 % Eos % (Auto) 1.5 % Baso % (Auto) 0.3 % Neut # (Auto) 7.01 H (1.4-6.5) K/uL Lymph # (Auto) 1.98 (1.2-3.4) K/uL [place] # (Auto) 0.49 (0.11-0.59) K/uL Eos # (Auto) 0.15 (0-0.5) K/uL Baso # (Auto) 0.03 (0-0.2) K/uL Immature Gran # (Auto) 0.05 H (0.00-0.02) K/uL Sodium 140 (136-145) mmol/L Potassium 3.7 (3.5-5.1) mmol/L Chloride 108 H (98-107) mmol/L Carbon Dioxide 24 (21-32) mmol/L Anion Gap 8.0 (3-11) BUN 13 (7-18) mg/dl Creatinine 0.76 (0.6-1.2) mg/dl Est Cr Clr Drug Dosing 114.8 ml/min Est GFR ( Amer) 112.9 Est GFR (Non-Af Amer) 97.4 BUN/Creatinine Ratio 17.4 (10-20) Glucose 118 H (70-99) mg/dl Calcium 9.8 (8.5-10.1) mg/dl Total Bilirubin 0.5 (0.2-1) mg/dl AST 16 (15-37) U/L ALT 24 (12-78) U/L Alkaline Phosphatase 82 (45-117) U/L Total Protein 7.8 (6.4-8.2) gm/dl Albumin 3.8 (3.4-5.0) gm/dl Globulin 4.0 (2.5-4.0) gm/dl Albumin/Globulin Ratio 1.0 (0.9-2) Lipase 107 (73-393) U/L Imaging Data Attestation: I personally reviewed and interpreted this imaging study as follows: Radiologist's Impression: CT ABDOMEN & PELVIS With Contrast: Small bowel obstruction. Transition point in the right lower quadrant. Distention up to 4 cm. No pneumatosis, portal venous gas, or free air. Left adrenal nodule 3.2 cm. Hysterectomy. Trace perihepatic and pelvic free fluid. Radiologist: Humberto Herring MD Blood Pressure Blood Pressure Findings: Normal blood pressure Blood Pressure Disposition: did not require urgent referral MDM Narrative The patient is a 39-year-old female with past medical history of diabetes, hysterectomy and ileostomy with reversal who presents today complaining of abdominal pain. Patient is most tender in the right lower quadrant. Labs revealed no leukocytosis, anemia or concerning electrolyte abnormalities. A CT scan was performed and shows evidence of a small bowel obstruction. Patient does not have much gastric distention on CT and does not vomiting, therefore NG tube was deferred at this time. Patient was given Toradol and Zofran with significant improvement of her symptoms. The case was discussed with the [facility]ist service, who agreed to evaluate the patient for further care. Impression & Plan Small bowel obstruction Discharge Plan Visit Data Chief Complaint: Abdominal Pain ED Provider: Manuel Mosher ED Midlevel Provider: Amara Voss Discharge Problem: Small bowel obstruction Patient Disposition: Admitted As Inpatient Discharge Instructions Interventions: ED Discharge Assessment Last Done: 03/04/20 06:11
--- NOTE | 2020-03-04 05:21 | History & Physical Report ---
Date of Service March 04, 2020 Assessment & Plan (1) Small bowel obstruction: Ms. Woody is a 39yo with a PMHx of DMII, Hypothyroidism, Depression and a Hx of multiple abdominal and pelvic surgeries who was admitted with a small bowel obstruction. Small bowel Obstruction in the setting of previous abdominal surgeries -Pt presented with 10/10 abdominal pain, and nausea -Hx of elective lap hysterectomy with L oophorectomy on Apr 16, 2019, complicated by abscess formation and bowel perforation -Hx of exploratory lap with diverting loop ileostomy on Apr 20, 2019 -Hx of reverse ileostomy on Aug 30, 2019 -CT Abdomen/Pelvis [employer] reading: "SBO. Transition point in right lower quadrant, distention up to 4cm" -NPO, consider NG tube for decompression if N/V worsening -Zofran 4mg PRN -Tylenol 1000mg q8h PRN -LR @125mls/hr -consider surgery consult if SBO persistent Hypothyroidism -Pt not currently on meds -TSH with reflex T4 pending with AM labs DMII -Hgba1c pending -currently NPO -Hold home metformin 500mg BID -ISS Depression -Pt currently NPO -hold home paxil 40mg and quetiapine 300mg qhs Bipolar Disorder -Pt currently NPO -hold home topiramate 50mg BID FEN/GI: NPO, LR@125mls/hr DVT prophylaxis: SCDs, ambulation CODE STATUS: Full Dispo: Med/Surg History of Present Illness Primary Care Provider: Ron Mccracken MD Ms. Woody is a 39yo with a PMHx of DMII, Hypothyroidism, Depression and a Hx of multiple abdominal and pelvic surgeries who was admitted with a small bowel obstruction. She states she started having diffuse abdominal pain about 4:30PM, 10/10 sharp, nonradiating. Has been associated with nausea but no vomitting. Has not tried eating anything. Last BM yesterday, states it was alot, soft but not diarrhea. Had some bright red blood that pt attributes to her hemorrhoids. She has a Hx of elective lap hysterectomy with L oophorectomy on Apr 16, 2019, complicated by abscess formation and bowel perforation, Hx of exploratory lap with diverting loop ileostomy on Apr 20, 2019 and Hx of reverse ileostomy on Aug 30, 2019. PMHx of hypothyroidism, depression, bipolar disorder, and DMII Surgical Hx as above SH: Lives at home with . Nonsmoker, no alcohol or recreational drug use. Allergies Allergy/AdvReac Type Severity Reaction Status Date / Time morphine AdvReac Intermediate NAUSEA Verified 03/04/20 04:18 VOMITING oxycodone [From Percocet] AdvReac Intermediate Nausea Verified 03/04/20 04:18 Home Medications Home Medications Medication Instructions Recorded Confirmed Type omeprazole 40 mg PO QAM 04/02/19 03/04/20 History paroxetine HCl [Paxil] 40 mg PO QAM 04/02/19 03/04/20 History metformin 500 mg tablet 500 mg PO BID #180 tab 04/29/19 03/04/20 Rx blood sugar diagnostic #10 ea 10/05/19 10/05/19 History lancets 28 gauge #25 ea 10/05/19 10/05/19 History quetiapine 300 mg PO HS 03/04/20 03/04/20 History topiramate 50 mg PO BID 03/04/20 03/04/20 History Past Med/Surg History Medical History Depression Diabetes mellitus, type 2 NIDDM GERD (gastroesophageal reflux disease) controlled Hypothyroidism Obesity Post-operative complication 04/2019 [facility] HYSTER - BOWEL PERFORATION, HYDROPNEUMOTHORAX --> ileostomy, chest tube placement Surgical History H/O oophorectomy RIGHT History of chest tube placement History of hysterectomy with unilateral oophorectomy 04/2019 [facility] History of laparotomy OVARIAN CYSTECTOMY Ileostomy, has currently S/P appendectomy Status post reversal of ileostomy Family History Grandmother (Maternal) Family history of diabetes mellitus Grandmother (Paternal) Family history of diabetes mellitus Grandfather (Paternal) Family history of esophageal cancer Other No family history of adverse response to anesthesia Denies family history of Ovarian cancer Prostate cancer Myocardial infarction Breast cancer Colorectal cancer Stroke Social History Smoking Status: Never smoker Second Hand Exposure: No; Hx Alcohol Use: No Hx Substance Use: No Preferred Language: Romansh 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: Effective Visual Impairment: No Limitations Hearing Ability: Normal Principal Security Architect Required: No Beliefs That Will Affect Care: None marital status: Current Living Situation: Spouse current occupational status: employed Other Information That Helps Us Care for You: No Feels Safe at Home: Yes Safety Concerns: Feels Safe At This Time Dental Care, Regularly: Yes Seatbelt Use: always Sunscreen Use: Yes Review of Systems Constitutional: + fatigue and + anorexia; no fever and no chills Eyes: no worsening vision Ear, Nose, Mouth, Throat: no nasal congestion and no sore throat Respiratory: no cough and no dyspnea Cardiovascular: no chest pain, no palpitations and no edema Gastrointestinal: + nausea and + blood in stools (bright red); no vomiting, no constipation and no diarrhea/loose stools Genitourinary: no dysuria and no hematuria Musculoskeletal: no body aches Integumentary: no rash Neurologic: no tingling, no numbness, no headache(s) and no confusion Psychiatric: + depression; no confusion Physical Exam Physical Exam: General: Alert, oriented. No acute distress, sitting up in bed. Skin: No noted rashes or bruises Psych: Appropriate mood and affect Neuro: No gross deficits HEENT: NC/AT Chest: Nontender to palpation. CV: RRR, Normal s1, s2. No murmurs appreciated Resp: Breath sounds clear bilaterally, no increased effort of breathing. No crackles/rhonchi/rales. Abdomen: Soft, nontender, nondistended. No guarding. Extremities: No edema in lower extremities bilaterally. Results & Data Results & Data ([facility]) Vital Signs (Past 12 Hours) Vital Signs Temp Pulse Pulse Resp BP BP Pulse Ox 03/04/20 05:00 89 19 129/79 98 03/04/20 04:00 85 17 122/82 97 03/04/20 03:00 84 18 125/87 97 03/04/20 02:35 97 03/04/20 01:59 36.8 C 89 18 146/100 H 100 Supervising Physician Co-Signing Physician Notes Attending addendum: I have physically seen this patient, have supervised the medical residents activities, and agree with the H&P unless as otherwise noted. Assessment and Plan: Small bowel obstruction- Likely secondary to adhesions History of multiple abdominal pelvic surgeries. N.p.o. Holding NG tube for now. LR at 125 mL's per hour. Acetaminophen 1000 mg IV every 8 hours PRN mild pain or temperature Zofran 4 mg IV every 6 hours PRN. Consult general surgery. Diabetes mellitus- Hold metformin Placed on Accu-Cheks before meals and at bedtime with NovoLog coverage per scale Left adrenal nodule 3.2 cm- Follow-up serially as an outpatient. Depression/bipolar disorder- Hold paroxetine, topiramate and quetiapine while n.p.o. Remaining orders and notations as noted Resident Activity Tracking Resident Involvement: Resident Care Provided Care Provided: Adult Hospital Medicine
[2020-03-04] MEDS ORDERED: GLUCOSE 10 TABS/TUBE PO PRN (06:36)
[2020-03-04] MEDS ORDERED: GLUCOSE 40% GEL 15 GM TUBE PO PRN (06:36)
[2020-03-04] MEDS ORDERED: ONDANSETRON INJ 2 MG/ML 2 ML VIAL IV PRN (06:36)
[2020-03-04] MEDS ORDERED: CARBOHYDRATES FOR HYPOGLYCEMIA PO PRN (06:36)
[2020-03-04] MEDS ORDERED: GLUCAGON FOR INJ 1 MG VIAL SQ PRN (06:36)
[2020-03-04] MEDS ORDERED: ACETAMINOPHEN 1000 MG/100 ML IV IV PRN (06:36)
[2020-03-04] MEDS ORDERED: DEXTROSE 50% 50 ML SYRINGE IV PRN (06:36)
[2020-03-04] MEDS: LACTATED RINGER'S 1,000 ML IV SCH ×3 (06:45→23:20)
[2020-03-04] MEDS ORDERED: DiphenhydrAMINE HCL 50 MG/ML VIAL IV PRN (07:00)
[2020-03-04] MEDS ORDERED: Nursing to Pharmacy Communication SCH (07:00)
[2020-03-04 07:02] LABS: Appearance Urine Clear (Clear); Bilirubin Urine Negative (Negative); Blood Urine Negative (Negative); Color Urine Yellow; Glucose Urine UA Negative (Negative); Ketones Urine Negative (Negative); Leukocyte Esterase Urine Negative (Negative); Nitrite Urine Negative (Negative); Protein Urine Negative (Negative); Specific Gravity Urine > 1.045 (1.000-1.030); Urobilinogen Urine Negative (Negative)
[2020-03-04] MEDS ORDERED: INSULIN ASPART 100 UNITS/ML 3 ML PEN SC SCH (07:30)
--- NOTE | 2020-03-04 08:32 | CT Scan Report ---
CT OF THE ABDOMEN AND PELVIS WITH CONTRAST CLINICAL HISTORY: Right lower quadrant abdominal pain. COMPARISON STUDY: CT of the abdomen and pelvis April 30, 2019. TECHNIQUE: Following IV administration of 94 mL of Optiray-320, axial images of the abdomen and pelvi s were obtained from the lung bases to the proximal femurs. Images were reviewed in the axial, sagitt al, and coronal planes. IV contrast was administered without complication. Automated exposure contro l was utilized for the study. A dose lowering technique was utilized adhering to the principles of A SHASTA. CT DOSE: 1766.46 mGy.cm FINDINGS: Lung bases are unremarkable. No pneumatosis, free air or portal venous gas is present. Ther e is fatty infiltration of the liver. A 3.1 cm left adrenal nodule is indeterminate but likely benign . This is unchanged. There is a cyst within lower pole the left kidney. Spleen, right adrenal gland, right kidney and pancreas are normal. There is no biliary or pancreatic ductal dilatation. There is n o hydronephrosis. Reversal of the right lower quadrant ileostomy since prior CT of April 30, 2019 i s noted. There are multiple loops of moderately dilated fluid-filled small bowel. Transition point is within the ileum, within the right lower quadrant shown on axial image 412 and 526. The more distal small bowel is decompressed. The transition point is in close proximity to a bowel anastomosis. A sma ll amount of associated ascites and mesenteric infiltration are noted. Fat-containing umbilical herni a is present. An additional fat-containing ventral hernia is present. No suspicious osseous lesions a re noted. IMPRESSION: 1. Findings consistent with a moderate to high-grade small bowel obstruction with transition point wi thin the right lower quadrant, as described above. Small amount of associated ascites and mesenteric infiltration. No free air, pneumatosis or portal venous gas. 2. Fatty infiltration of the liver. 3. No change in a 3.2 cm left adrenal nodule. Although indeterminate, this is probably benign. ACT 112: Negative or not required by law. Electronically signed by: Vince Luo M.D. 03/04/2020 8:31 AM
[2020-03-04] MEDS ORDERED: SODIUM CHLORIDE 0.65% NA SOLN 45 ML (OCEAN) ONE (14:30)
[2020-03-04] MEDS ORDERED: SODIUM CHLORIDE 0.65% NA SOLN 45 ML (OCEAN) PRN (14:43)
[2020-03-04] MEDS: INSULIN ASPART 100 UNITS/ML 3 ML PEN SC SCH ×2 (15:02→18:44)
--- NOTE | 2020-03-04 16:45 | Hospitalist Progress Note ---
Date of Service March 04, 2020 Assessment & Plan (1) Small bowel obstruction: -Pain resolved -Hx of multiple abdominal surgeries -CT Abdomen/Pelvis showing high grade small bowel obstruction with transition point within the right lower quadrant. -Symptoms improving - continue NPO for now as patient is not yet passing gas - Continue LR @125mls/hr -hold off on surgical consult as patient is improving clinically (2) Type 2 diabetes mellitus: Hold home metformin, continue SS Bsgs acceptable (3) Depression: With bipolar disorder Hold quetiapine, topiramate, and paroxetine for today while NPO (4) Fatty liver: As seen on CT - follow up with pcp Lifestyle counseling (5) DVT prophylaxis: SCDs Admission and Anticipated Discharge Date Admission Date: March 04, 2020 Subjective Ms. Woody has no further abdominal pain, no nausea or vomiting. She has not had a bowel movement and is not passing gas ROS Constitutional: no chills, aches, sweats or fever Respiratory: no sob,cough, sputum, or wheezing Cardiac: no chest pain, palpitations, edema, orthopnea or lightheadedness GI: no abdominal pain, nausea, vomiting, diarrhea or constipation : no dysuria or hesitancy Extremities: no joint pain or weakness Skin: no rash All other systems reviewed and negative Physical Exam Physical Exam: General: no distress Eyes: normal inspection, PERLL Respiratory: chest non tender, clear to auscultation, normal breath sounds, no respiratory distress, no accessory muscle use Cardiac: regular rate and rhythm, no rub or gallop, no murmur, no edema, no jvd GI/: active bowel sounds, no abd pain or tenderness, soft, non distended Extremities: normal range of motion, normal strength, non tender Neuro/Psych: alert and oriented x 3, normal mood and affect Skin: normal color, dry Results & Data Results & Data ([facility]) Vital Signs (Past 12 Hours) Vital Signs Temp Pulse Pulse Resp BP Pulse Ox 03/04/20 15:41 36.5 C 77 16 131/82 96 03/04/20 07:39 36.9 C 73 16 121/74 97 03/04/20 06:36 36.8 C 90 16 135/90 96 03/04/20 06:00 87 16 118/86 97 03/04/20 05:00 89 19 129/79 98 PG Care Time/CCT Total # of Minutes Spent Total Time Spent with Patient: Total time spent is greater than 50% in coordination of care (as documented) at patient's floor/unit and/or counseling patient: Coding Level of Care Code None Diagnoses Small bowel obstruction K56.609 Type 2 diabetes mellitus E11.9 Depression F32.9 Fatty liver K76.0 DVT prophylaxis Z29.9
--- NOTE | 2020-03-04 23:50 | Billing Data ---
Date of Service March 04, 2020 Coding Level of Care Code 71020 Initial Inpt Care Lvl 3
[2020-03-05] MEDS: INSULIN ASPART 100 UNITS/ML 3 ML PEN SC SCH ×5 (00:29→21:29)
[2020-03-05 06:18] LABS: Basophils # (auto) 0.03 K/uL (0-0.2); Basophils % (auto) 0.5 %; Eosinophils # (auto) 0.14 K/uL (0-0.5); Eosinophils % (auto) 2.3 %; Hematocrit (blood only) 31.3 % (37-47); Hemoglobin 10.3 g/dL (12.0-16.0); Immature Granulocytes # (auto) 0.02 K/uL (0.00-0.02); Immature Granulocytes % (auto) 0.3 %; Lymphocytes # (auto) 2.22 K/uL (1.2-3.4); Lymphocytes % (auto) 36.2 %; Mean Corpuscular Hemoglobin 25.2 pg (25-34); Mean Corpuscular Hgb Conc 32.9 g/dL (32-36); Mean Corpuscular Volume 76.5 fL (80-100); Mean Platelet Volume 11.4 fL (7.4-10.4); Monocytes % (auto) 6.5 %; Neutrophils # (auto) 3.33 K/uL (1.4-6.5); Neutrophils % (auto) 54.2 %; Platelet Count 223 K/uL (130-400); RDW Coefficient of Variation 15.5 % (11.5-14.5); RDW Standard Deviation 43.3 fL (36.4-46.3); Red Blood Count 4.09 M/uL (4.2-5.4); White Blood Count 6.14 K/uL (4.8-10.8)
[2020-03-05] MEDS: LACTATED RINGER'S 1,000 ML IV SCH ×2 (06:19→13:39)
[2020-03-05 07:07] LABS: Albumin Level 3.3 gm/dl (3.4-5.0); BUN Creatinine Ratio 15.5 (10-20); Calcium 8.4 mg/dl (8.5-10.1); Creatinine Clr Calc Pharmacy 131.7 ml/min; Est GFR (African American) 127.2; Est GFR (Non-African American) 109.7; Potassium 3.7 mmol/L (3.5-5.1)
[2020-03-05 07:17] LABS: Albumin Globulin Ratio 0.9 (0.9-2); Bilirubin,Total 0.7 mg/dl (0.2-1); Globulin 3.5 gm/dl (2.5-4.0); Thyroid Stimulating Hormone 4.58 uIu/ml (0.300-4.500); Total Protein 6.8 gm/dl (6.4-8.2)
[2020-03-05 07:32] LABS: T4 Free Thyroxine 0.97 ng/dl (0.8-1.6)
[2020-03-05] MEDS: TOPIRAMATE 50 MG TAB PO SCH ×2 (12:54→20:26)
[2020-03-05] MEDS: PARoxetine HCL 20 MG TAB PO SCH (12:54)
[2020-03-05] MEDS ORDERED: Nursing to Pharmacy Communication SCH (13:15)
--- NOTE | 2020-03-05 16:19 | Hospitalist Progress Note ---
Date of Service March 05, 2020 Assessment & Plan (1) Small bowel obstruction: -Pain resolved, passing gas, no bm yet -Hx of multiple abdominal surgeries -CT Abdomen/Pelvis showing high grade small bowel obstruction with transition point within the right lower quadrant. -Tolerated clear liquid diet breakfast and lunch, will advance to full liquid for dinner - discontinue fluids -no need for surgical consult as patient is improving clinically (2) Type 2 diabetes mellitus: Hold home metformin, continue SS Bsgs acceptable (3) Depression: With bipolar disorder Resume home quetiapine, topiramate, and paroxetine for today while NPO (4) Fatty liver: As seen on CT - follow up with pcp Lifestyle counseling (5) DVT prophylaxis: SCDs Admission and Anticipated Discharge Date Admission Date: March 04, 2020 Subjective Ms. Woody is passing gas, no bm yet. She tolerated her clear liquid diet, no nausea, vomiting or abdominal pain. ROS Constitutional: no chills, aches, sweats or fever Respiratory: no sob,cough, sputum, or wheezing Cardiac: no chest pain, palpitations, edema, orthopnea or lightheadedness GI: no abdominal pain, nausea, vomiting, diarrhea or constipation : no dysuria or hesitancy Extremities: no joint pain or weakness Skin: no rash All other systems reviewed and negative Physical Exam Physical Exam: General: no distress Eyes: normal inspection, PERLL Respiratory: chest non tender, clear to auscultation, normal breath sounds, no respiratory distress, no accessory muscle use Cardiac: regular rate and rhythm, no rub or gallop, no murmur, no edema, no jvd GI/: active bowel sounds, no abd pain or tenderness, soft, non distended Extremities: normal range of motion, normal strength, non tender Neuro/Psych: alert and oriented x 3, normal mood and affect Skin: normal color, dry Results & Data Results & Data ([facility]) Vital Signs (Past 12 Hours) Vital Signs Temp Pulse Resp BP Pulse Ox 03/05/20 15:03 36.4 C L 78 16 129/85 99 03/05/20 06:21 36.7 C 72 16 127/88 99 PG Care Time/CCT Total # of Minutes Spent Total Time Spent with Patient: Total time spent is greater than 50% in coordination of care (as documented) at patient's floor/unit and/or counseling patient: Coding Level of Care Code 95446 Subseq Hosp Care Lvl 2 Diagnoses Small bowel obstruction K56.609 Type 2 diabetes mellitus E11.9 Depression F32.9 Fatty liver K76.0 DVT prophylaxis Z29.9
[2020-03-05] MEDS ORDERED: QUETIAPINE FUMARATE 300 MG TABLET PO SCH (21:00)
[2020-03-06 07:49] LABS: Estimated Average Glucose 117 mg/dl; Hemoglobin A1C 5.7 % (4.5-5.6)
[2020-03-06] MEDS: TOPIRAMATE 50 MG TAB PO SCH (09:00)
[2020-03-06] MEDS: PARoxetine HCL 20 MG TAB PO SCH (09:00)
[2020-03-06] MEDS ORDERED: PANTOprazole 40 MG TAB PO SCH (09:00)
[2020-03-06] MEDS: INSULIN ASPART 100 UNITS/ML 3 ML PEN SC SCH ×2 (09:04→13:45)
--- NOTE | 2020-03-06 10:14 | XRay Report ---
KUB HISTORY: Small bowel obstruction. Follow-up. COMPARISON: Abdomen and pelvis CT 03/04/2020. FINDINGS: The bowel gas pattern is unremarkable. There are no dilated loops of small bowel to suggest an obstruction. No renal calculi. No ureteral calculi. Calcifications in the deep pelvis likely rep resent phleboliths. No pneumoperitoneum or pneumatosis. IMPRESSION: No dilated loops of small bowel identified at this time. ACT 112: Negative or not required by law. Electronically signed by: Jeffery Slaughter M.D. 03/06/2020 10:13 AM
--- NOTE | 2020-03-06 12:01 | Discharge Summary ---
Date of Service March 06, 2020 Admission HPI Per Admitting Provider Ms. Woody is a 39yo with a PMHx of DMII, Hypothyroidism, Depression and a Hx of multiple abdominal and pelvic surgeries who was admitted with a small bowel obstruction. She states she started having diffuse abdominal pain about 4:30PM, 10/10 sharp, nonradiating. Has been associated with nausea but no vomitting. Has not tried eating anything. Last BM yesterday, states it was alot, soft but not diarrhea. Had some bright red blood that pt attributes to her hemorrhoids. She has a Hx of elective lap hysterectomy with L oophorectomy on Apr 16, 2019, complicated by abscess formation and bowel perforation, Hx of exploratory lap with diverting loop ileostomy on Apr 20, 2019 and Hx of reverse ileostomy on Aug 30, 2019. PMHx of hypothyroidism, depression, bipolar disorder, and DMII Surgical Hx as above SH: Lives at home with . Nonsmoker, no alcohol or recreational drug use. Principal Diagnosis Small bowel obstruction Discharge Exam Constitutional WD/WN, vitals as above Eyes PERRL, conjunctivae normal, anicteric sclerae ENMT external ear and nose normal, oropharynx normal Neck trachea midline, no thyromegaly Respiratory normal respiratory effort, lungs clear to auscultation Cardiovascular RRR, no murmur, no edema Chest (Breasts) Chest: normal inspection of chest Gastrointestinal (Abdomen) normal bowel sounds, soft, nontender, no hepatosplenomegaly Musculoskeletal Extremities: extremities normal to inspection; no cyanosis and no clubbing Skin no rashes, warm and dry Neurologic moves all extremities and awake; no focal motor deficits Psychiatric A+Ox3, euthymic affect Lymphatic no lymphedema Discharge Data Allergies Allergy/AdvReac Type Severity Reaction Status Date / Time morphine AdvReac Intermediate NAUSEA Verified 03/04/20 04:18 VOMITING oxycodone [From Percocet] AdvReac Intermediate Nausea Verified 03/04/20 04:18 Ordered Studies 03/04/20 02:17 CT abd pelvis IV con only Urgent KUB xray Hospital Course (1) Small bowel obstruction: Admitted 03/04 with mod-high grade SBO seen on CT after having intense abd pain, N/V. -Hx of multiple abdominal surgeries, most likely secondary to adhesive disease Pt reports having likely partial SBOs at home for which she did not seek treatment over the last 6 months that resolved on their own Was teated conservatively and did not have NGT placed upon admission. Surgery was not consulted as she improved quickly Was given IVFs, slowly advanced diet. Was megan low fiber ADA diet at time of discharge, had a small BM, was passing flatus, and had no abd pain or nausea. Stable for dc to home with close f/u with PCP (2) Type 2 diabetes mellitus: ok to restart home metformin on discharge f/u with PCP (3) Depression: With bipolar disorder Continue home quetiapine, topiramate, and paroxetine which were initially held for NPO status (4) Fatty liver: As seen on CT - follow up with pcp Lifestyle counseling, needs weigh tloss (5) Adrenal nodule: 3.1 cm on left, noted to be stable from previous needs outpt PCP follow up (6) DVT prophylaxis: SCDs Dispo-stable for dc to home Total Time Total Time Spent Total Time Spent (In Minutes): >30 min Total Time Includes: Examination of the Patient, Discharge Planning and Medication Reconciliation Discharge Plan Discharge Items Patient Disposition: Home - Self-Care Reason For Visit: SBO Discharge Diagnosis: Small bowel obstruction Condition on Discharge: Good Activity: As commented below Lifting: Gradually increase as tolerated Bathing: No limitations Exercise/Sports: Gradually increase as tolerated Exercise Comment: Remain out of work until 03/07/20 Weightbearing: Full weightbearing Non-emergency contact: Primary Care Provider Call non-emergency contact if: you have any medication questions, your symptoms worsen, your pain is not controlled, your pain is worsening, your pain is unusual for you and your pain is concerning for you Follow-up/Referrals: Ron Mccracken MD [Primary Care Provider] - (Please follow up within 1-2 weeks ) Diet: Low Fiber Addtl Attending Provider Instructions: Continue to keep your bowels moving regularly, at least 1-2 times per day. Eat a low fiber diet for the next week or so. If you develop worsening abdominal pain, nausea or vomiting, or are not passing gas, please call your doctor or come to the hospital again as soon as possible. You incidentally were found to have a nodule on your adrenal gland that has not grown in size, but your PCP should follow up on this as an outpatient. Follow up with your PCP within 1-2 weeks. Pending Studies at Discharge: No Stand-Alone Forms: My [facility], Work/School Release (Inpt) Medications and DC Order Prescriptions: Continued metformin 500 mg tablet 500 mg PO BID Qty: 180 RF: 1 (DME) lancets [FreeStyle Lancets] 28 gauge misc See Rx Instructions .ROUTE .MEDSUPPLY Qty: 25 RF: 0 (DME) blood sugar diagnostic [FreeStyle Lite Strips] Strip See Rx Instructions .ROUTE .MEDSUPPLY Qty: 10 RF: 0 omeprazole 40 mg Capsule,Delayed Release(Dr/Ec) 40 mg PO QAM RF: 0 paroxetine HCl [Paxil] 40 mg Tablet 40 mg PO QAM RF: 0 quetiapine 300 mg tablet 300 mg PO HS RF: 0 topiramate 50 mg tablet 50 mg PO BID RF: 0 Discharge Orders: Discharge Order (Routine); Ordered 03/06/20 Ordered By: Kaye James/Other Patient Handouts: Abdominal Pain, Small Bowel Obstruction, High Blood Sugar (Hyperglycemia), Managing Type 2 Diabetes, Anatomy of the Digestive System, Diabetes: Meal Planning Admission Data Admit Date/Time: 03/04/20 05:04 Attending Provider: Kaye Garcia Admit Provider: Su Davis Primary Care Provider: Ron Mccracken V. Coding Level of Care Code D/C Day Management >30 mins Diagnoses Small bowel obstruction K56.609 Type 2 diabetes mellitus E11.9 Depression F32.9 Fatty liver K76.0 Adrenal nodule E27.8 DVT prophylaxis Z29.9
== END 2020-03-06 15:05 | disposition home or self-care (01) | DRG 390 ==
LOC: ED 01:49 → 3W 05:04 → SUATTDRO 05:04 → 3W 06:11

== ENCOUNTER 2023-03-12 00:37 | Inpatient (IN) ==
[2023-03-12 01:05] LABS: Appearance Urine Clear (Clear); Bacteria Urine Automated Negative (Negative); Bilirubin Urine Negative (Negative); Blood Urine Negative (Negative); Color Urine Yellow; Epithelial Cell Urine Auto >30 /lpf (0-5); Glucose Urine UA Negative (Negative); Ketones Urine Negative (Negative); Leukocyte Esterase Urine 2+ (Negative); Nitrite Urine Negative (Negative); Protein Urine Negative (Negative); RBC Urine Automated 0-4 /hpf (0-4); Specific Gravity Urine 1.004 (1.000-1.030); Urobilinogen Urine Negative (Negative); pH Urine 6.5 (4.5-7.5)
--- NOTE | 2023-03-12 01:08 | Emergency Department Note ---
Impression & Plan Suicidal thoughts ADMIT ED Provider Note HPI: The patient is a 42-year-old female with history of anxiety and depression, bipolar disorder, presents emergency department with chief complaint of increasing anxiety over the past week as well as suicidal thoughts. Patient states that she is having thoughts of wanting to cut her wrist to kill herself. Patient tells me that she has been having increasing anxiety but denies any hallucinations, on arrival here to the ED the patient is hemodynamically stable, she is in no acute distress. Denies any recent alcohol or drug use. Patient is cooperative on arrival but she is somewhat anxious appearing ROS: - Per HPI *Outpatient medications and allergy history reviewed. *Pertinent external medical records reviewed. PE: General: Alert HEENT: Normocephalic, trachea midline Eyes: Extraocular eye movement is intact, no scleral erythema Pulmonary: Clear to auscultation bilaterally, no wheezing Cardio: Regular rate and rhythm GI: Abdomen is soft to palpation : No suprapubic tenderness MSK: No evidence of trauma or malformation of the extremities, no edema Skin: No evidence of rash Neuro: Alert, no focal deficits Psychiatric: Cooperative Interventions provided in ED: -Ativan Medical Decision Making: Patient presented with anxiety and suicidal thoughts. Patient was medically cleared here in the ED and assessed by case management. Patient was determined appropriate for inpatient admission on a voluntary basis. Patient was excepted for admission by 3 S. Patient was transferred to [facility] for inpatient care in stable condition. Patient did receive a dose of oral Ativan while here in the ED for anxiety with good response. Consultants: Case management Disposition discussion held by myself with: Patient Diagnosis: 1. Suicidal thoughts, acute 2. Anxiety and depression, acute Disposition: Admission to psychiatry Stanley Remy DO Emergency Medicine Past Med/Surg History Medical History (Updated 03/12/23 @ 04:04 by Stanley Remy DO) Adrenal nodule Bipolar 1 disorder Depression Diabetes mellitus, type 2 NIDDM GERD (gastroesophageal reflux disease) controlled Hypothyroidism Obesity Post-operative complication 04/2019 [facility] HYSTER - BOWEL PERFORATION, HYDROPNEUMOTHORAX --> ileostomy, chest tube placement Postmenopausal hormone replacement therapy Postsurgical menopause Small bowel obstruction Surgical History H/O oophorectomy History of hysterectomy with unilateral oophorectomy History of ileostomy History of laparotomy S/P appendectomy S/P chest tube placement S/P ileostomy Status post exploratory laparotomy Status post reversal of ileostomy Family History Grandmother (Maternal) Family history of diabetes mellitus Grandmother (Paternal) Family history of diabetes mellitus Grandfather (Paternal) Family history of esophageal cancer Other No family history of adverse response to anesthesia Denies family history of Ovarian cancer Prostate cancer Myocardial infarction Breast cancer Colorectal cancer Stroke Social History Smoking Status: Former smoker Second Hand Exposure: No; Do You Dip or Chew Tobacco: No; Hx Alcohol Use: No Hx Substance Use: No Preferred Language: German 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: Effective Visual Impairment: No Limitations Hearing Ability: Normal Plugger Required: No Beliefs That Will Affect Care: None marital status: Current Living Situation: Spouse current occupational status: employed Feels Safe at Home: Yes Dental Care, Regularly: Yes Seatbelt Use: always Sunscreen Use: Yes Gender Identity: Female Assistive Devices: None Allergies Allergies Allergy/AdvReac Type Severity Reaction Status Date / Time morphine AdvReac Intermediate NAUSEA Verified 03/12/23 01:36 VOMITING oxycodone [From Percocet] AdvReac Intermediate Nausea Verified 03/12/23 01:36 Home Meds Home Medications Medication Instructions Recorded Confirmed blood sugar diagnostic (FreeStyle #10 ea 10/05/19 02/04/23 Lite Strips) lancets 28 gauge (FreeStyle #25 ea 10/05/19 02/04/23 Lancets) quetiapine 100 mg tablet 100 mg PO HS 01/28/22 03/12/23 fluoxetine 40 mg capsule 40 mg PO DAILY 02/04/23 03/12/23 deutetrabenazine 24 mg 24 mg PO DAILY 03/12/23 03/12/23 tablet,extended release 24 hr (Austedo XR) estradiol 0.1 mg/24 hr weekly 1 patch transdermal WK 03/12/23 03/12/23 transdermal patch quetiapine 400 mg tablet 400 mg PO HS 03/12/23 03/12/23 Previous Rx's Medication Instructions Recorded metformin 1,000 mg tablet 1,000 mg PO BID #180 tabs 03/27/23 Results & Data (ED) Vital Signs Vital Signs - 24 hr 03/12/23 00:42 03/12/23 01:14 03/12/23 02:47 Temperature 36.5 C Temperature Source Temporal Artery Scan Pulse Rate 98 H Pulse Rate [Left Finger] 77 Pulse Rhythm [Left Finger] Regular Pulse Strength [Left Finger] Normal Respiratory Rate 17 18 Respiratory Effort / Characteristics Non-Labored Spontaneous Respiratory Depth Normal Normal Respiratory Pattern Regular Blood Pressure 157/95 H Blood Pressure [Left Arm] 151/96 H Blood Pressure Mean 115 Blood Pressure Mean [Left Arm] 114 Pulse Oximetry 98 97 Oxygen Delivery Method Room Air Room Air Room Air Sepsis Recent Fever Within 48 Hours No Sepsis New/Unexplained Change in Mental Status No Sepsis Action Taken by Nursing No Action Required Laboratory Data 03/12/23 01:02 03/12/23 00:51 Lab Results 03/12/23 03/12/23 03/12/23 Range/Units 00:51 00:55 00:55 WBC (4.8-10.8) K/ul RBC (4.20-5.40) M/uL Hgb (12.0-16.0) g/dl Hct (37.0-47.0) % MCV (80.0-100.0) fL MCH (25.0-34.0) pg MCHC (32.0-36.0) g/dL RDW Std Deviation (36.4-46.3) fL RDW Coeff of Mine (11.5-14.5) % Plt Count (130-400) K/uL MPV (9.4-12.4) fL Immature Gran % (Auto) % Neut % (Auto) % Lymph % (Auto) % [place] % (Auto) % Eos % (Auto) % Baso % (Auto) % Neut # (Auto) (1.40-6.50) K/uL Lymph # (Auto) (1.20-3.40) K/uL [place] # (Auto) (0.11-0.59) K/uL Eos # (Auto) (0.00-0.50) K/uL Baso # (Auto) (0.00-0.20) K/uL Immature Gran # (Auto) (0.01-0.20) K/uL Sodium 137 (136-145) mmol/L Potassium 4.3 (3.5-5.1) mmol/L Chloride 100 (98-107) mmol/L Carbon Dioxide 27 (21-32) mmol/L Anion Gap 10 (3-11) BUN 11 (6-23) mg/dl Creatinine 0.69 (0.6-1.2) mg/dl Est Cr Clr Drug Dosing 126.3 ml/min Est GFR ( Amer) 122.7 ml/min Est GFR (Non-Af Amer) 105.9 ml/min BUN/Creatinine Ratio 15.9 (10-20) Glucose 121 H (70-99(Fasting)) mg/dl Calcium 9.8 (8.6-10.3) mg/dl Total Bilirubin 0.9 (0.2-1.0) mg/dl AST 27 (13-39) U/L ALT 35 (7-52) U/L Alkaline Phosphatase 71 (34-104) U/L Total Protein 8.1 (6.0-8.3) gm/dl Albumin 5.0 (3.4-5.0) gm/dl Globulin 3.1 (2.5-4.0) gm/dl Albumin/Globulin Ratio 1.6 (0.9-2) TSH (0.300-4.500) uIu/ml Urine Color Yellow Urine Appearance Clear (Clear) Urine pH 6.5 (4.5-7.5) Ur Specific Eff[place] 1.004 (1.000-1.030) Urine Protein Negative (Negative) Urine Glucose (UA) Negative (Negative) Urine Ketones Negative (Negative) Urine Blood Negative (Negative) Urine Nitrite Negative (Negative) Urine Bilirubin Negative (Negative) Urine Urobilinogen Negative (Negative) Ur Leukocyte Esterase 2+ H (Negative) Urine WBC (Auto) 10-30 H (0-5) /hpf Urine RBC (Auto) 0-4 (0-4) /hpf U Hyaline Cast (Auto) 1-5 (0-5) /lpf U Epithel Cells (Auto) >30 H (0-5) /lpf Urine Bacteria (Auto) Negative (Negative) Salicylates (3.0-30) mg/dl Urine Opiates Screen Neg (Neg) Ur Methadone, Qual Neg (Neg) Acetaminophen (10-30) ug/ml Urine Barbiturates Neg (Neg) Ur Phencyclidine (PCP) Neg (Neg) U Amphetamin/Meth Scrn Neg (Neg) MDMA (Ecstasy) Screen Neg (Neg) U Benzodiazepines Scrn Neg (Neg) Ur Cocaine Metabolite Neg (Neg) U Marijuana (THC) Screen Neg (Neg) Ethyl Alcohol mg/dL (<10.0) mg/dl SARS-CoV-2, RNA, NAAT (NEGATIVE) 03/12/23 03/12/23 03/12/23 Range/Units 01:02 01:02 01:02 WBC 11.91 H (4.8-10.8) K/ul RBC 4.96 (4.20-5.40) M/uL Hgb 14.2 (12.0-16.0) g/dl Hct 41.7 (37.0-47.0) % MCV 84.1 (80.0-100.0) fL MCH 28.6 (25.0-34.0) pg MCHC 34.1 (32.0-36.0) g/dL RDW Std Deviation 40.9 (36.4-46.3) fL RDW Coeff of Mine 13.6 (11.5-14.5) % Plt Count 289 (130-400) K/uL MPV 11.0 (9.4-12.4) fL Immature Gran % (Auto) 0.8 % Neut % (Auto) 62.2 % Lymph % (Auto) 28.9 % [place] % (Auto) 6.0 % Eos % (Auto) 1.3 % Baso % (Auto) 0.8 % Neut # (Auto) 7.41 H (1.40-6.50) K/uL Lymph # (Auto) 3.44 H (1.20-3.40) K/uL [place] # (Auto) 0.72 H (0.11-0.59) K/uL Eos # (Auto) 0.15 (0.00-0.50) K/uL Baso # (Auto) 0.09 (0.00-0.20) K/uL Immature Gran # (Auto) 0.10 (0.01-0.20) K/uL Sodium (136-145) mmol/L Potassium (3.5-5.1) mmol/L Chloride (98-107) mmol/L Carbon Dioxide (21-32) mmol/L Anion Gap (3-11) BUN (6-23) mg/dl Creatinine (0.6-1.2) mg/dl Est Cr Clr Drug Dosing ml/min Est GFR ( Amer) ml/min Est GFR (Non-Af Amer) ml/min BUN/Creatinine Ratio (10-20) Glucose (70-99(Fasting)) mg/dl Calcium (8.6-10.3) mg/dl Total Bilirubin (0.2-1.0) mg/dl AST (13-39) U/L ALT (7-52) U/L Alkaline Phosphatase (34-104) U/L Total Protein (6.0-8.3) gm/dl Albumin (3.4-5.0) gm/dl Globulin (2.5-4.0) gm/dl Albumin/Globulin Ratio (0.9-2) TSH 3.628 (0.300-4.500) uIu/ml Urine Color Urine Appearance (Clear) Urine pH (4.5-7.5) Ur Specific [place] (1.000-1.030) Urine Protein (Negative) Urine Glucose (UA) (Negative) Urine Ketones (Negative) Urine Blood (Negative) Urine Nitrite (Negative) Urine Bilirubin (Negative) Urine Urobilinogen (Negative) Ur Leukocyte Esterase (Negative) Urine WBC (Auto) (0-5) /hpf Urine RBC (Auto) (0-4) /hpf U Hyaline Cast (Auto) (0-5) /lpf U Epithel Cells (Auto) (0-5) /lpf Urine Bacteria (Auto) (Negative) Salicylates < 3.0 L (3.0-30) mg/dl Urine Opiates Screen (Neg) Ur Methadone, Qual (Neg) Acetaminophen < 3 L (10-30) ug/ml Urine Barbiturates (Neg) Ur Phencyclidine (PCP) (Neg) U Amphetamin/Meth Scrn (Neg) MDMA (Ecstasy) Screen (Neg) U Benzodiazepines Scrn (Neg) Ur Cocaine Metabolite (Neg) U Marijuana (THC) Screen (Neg) Ethyl Alcohol mg/dL (<10.0) mg/dl SARS-CoV-2, RNA, NAAT (NEGATIVE) 03/12/23 03/12/23 Range/Units 01:02 Unknown WBC (4.8-10.8) K/ul RBC (4.20-5.40) M/uL Hgb (12.0-16.0) g/dl Hct (37.0-47.0) % MCV (80.0-100.0) fL MCH (25.0-34.0) pg MCHC (32.0-36.0) g/dL RDW Std Deviation (36.4-46.3) fL RDW Coeff of Mine (11.5-14.5) % Plt Count (130-400) K/uL MPV (9.4-12.4) fL Immature Gran % (Auto) % Neut % (Auto) % Lymph % (Auto) % [place] % (Auto) % Eos % (Auto) % Baso % (Auto) % Neut # (Auto) (1.40-6.50) K/uL Lymph # (Auto) (1.20-3.40) K/uL [place] # (Auto) (0.11-0.59) K/uL Eos # (Auto) (0.00-0.50) K/uL Baso # (Auto) (0.00-0.20) K/uL Immature Gran # (Auto) (0.01-0.20) K/uL Sodium (136-145) mmol/L Potassium (3.5-5.1) mmol/L Chloride (98-107) mmol/L Carbon Dioxide (21-32) mmol/L Anion Gap (3-11) BUN (6-23) mg/dl Creatinine (0.6-1.2) mg/dl Est Cr Clr Drug Dosing ml/min Est GFR ( Amer) ml/min Est GFR (Non-Af Amer) ml/min BUN/Creatinine Ratio (10-20) Glucose (70-99(Fasting)) mg/dl Calcium (8.6-10.3) mg/dl Total Bilirubin (0.2-1.0) mg/dl AST (13-39) U/L ALT (7-52) U/L Alkaline Phosphatase (34-104) U/L Total Protein (6.0-8.3) gm/dl Albumin (3.4-5.0) gm/dl Globulin (2.5-4.0) gm/dl Albumin/Globulin Ratio (0.9-2) TSH (0.300-4.500) uIu/ml Urine Color Urine Appearance (Clear) Urine pH (4.5-7.5) Ur Specific [place]ie (1.000-1.030) Urine Protein (Negative) Urine Glucose (UA) (Negative) Urine Ketones (Negative) Urine Blood (Negative) Urine Nitrite (Negative) Urine Bilirubin (Negative) Urine Urobilinogen (Negative) Ur Leukocyte Esterase (Negative) Urine WBC (Auto) (0-5) /hpf Urine RBC (Auto) (0-4) /hpf U Hyaline Cast (Auto) (0-5) /lpf U Epithel Cells (Auto) (0-5) /lpf Urine Bacteria (Auto) (Negative) Salicylates (3.0-30) mg/dl Urine Opiates Screen (Neg) Ur Methadone, Qual (Neg) Acetaminophen (10-30) ug/ml Urine Barbiturates (Neg) Ur Phencyclidine (PCP) (Neg) U Amphetamin/Meth Scrn (Neg) MDMA (Ecstasy) Screen (Neg) U Benzodiazepines Scrn (Neg) Ur Cocaine Metabolite (Neg) U Marijuana (THC) Screen (Neg) Ethyl Alcohol mg/dL < 10.0 (<10.0) mg/dl SARS-CoV-2, RNA, NAAT NEGATIVE (NEGATIVE) Administered Medications Discontinued Medications Lorazepam (Lorazepam 1 Mg Tab) 1 mg PO NOW STA Stop: 03/12/23 01:10 Last Admin: 03/12/23 01:21 Dose: 1 mg Documented By: ARMANI Discharge Plan Visit Data Chief Complaint: Anxiety Stated Complaint: SEVERE ANXIETY ATTACK ED Provider: Stanley Remy Discharge Problem: Suicidal thoughts Forms Stand Alone Forms: [facility], Suicide Prevention Resources Prescriptions Prescriptions: No Action metformin 1,000 mg tablet 1,000 mg PO BID Qty: 180 1RF fluoxetine 40 mg capsule 40 mg PO DAILY (DME) lancets [FreeStyle Lancets] 28 gauge misc See Rx Instructions .ROUTE .MEDSUPPLY Qty: 25 Rx Instructions: test blood sugars twice a day (DME) blood sugar diagnostic [FreeStyle Lite Strips] Strip See Rx Instructions .ROUTE .MEDSUPPLY Qty: 10 Rx Instructions: test blood sugars twice daily quetiapine 100 mg tablet 100 mg PO HS Rx Instructions: TOTAL DOSE 500 MG--TAKES WITH 400 MG TAB. quetiapine 400 mg tablet 400 mg PO HS Rx Instructions: TOTAL DOSE 500 MG--TAKES WITH 100 MG TAB. Austedo XR 24 mg tablet extended release 24 hr 24 mg PO DAILY estradiol 0.1 mg/24 hr patch weekly 1 patch transdermal WK Rx Instructions: CHANGES ON FRIDAYS. 1 patch transdermal apply to skin once weekly; Referrals Referrals: Ron Mccracken MD [Primary Care Provider] -
[2023-03-12] MEDS ORDERED: LORazepam 1 MG TAB PO STA (01:09)
[2023-03-12 01:24] LABS: Amphetamines+Metham, Urine Neg (Neg); Barbiturates, Urine Neg (Neg); Benzodiazepine, Urine Neg (Neg); Cocaine, Urine Neg (Neg); MDMA (Ecstacy), Urine Neg (Neg); Methadone, Urine Neg (Neg); Opiate, Urine Neg (Neg); Phencyclidine, Urine Neg (Neg)
[2023-03-12 01:28] LABS: Basophils # (auto) 0.09 K/uL (0.00-0.20); Basophils % (auto) 0.8 %; Eosinophils # (auto) 0.15 K/uL (0.00-0.50); Eosinophils % (auto) 1.3 %; Hematocrit (blood only) 41.7 % (37.0-47.0); Hemoglobin 14.2 g/dl (12.0-16.0); Immature Granulocytes % (auto) 0.8 %; Lymphocytes # (auto) 3.44 K/uL (1.20-3.40); Lymphocytes % (auto) 28.9 %; Mean Corpuscular Hemoglobin 28.6 pg (25.0-34.0); Mean Corpuscular Hgb Conc 34.1 g/dL (32.0-36.0); Mean Corpuscular Volume 84.1 fL (80.0-100.0); Monocytes # (auto) 0.72 K/uL (0.11-0.59); Neutrophils # (auto) 7.41 K/uL (1.40-6.50); Neutrophils % (auto) 62.2 %; Platelet Count 289 K/uL (130-400); RDW Coefficient of Variation 13.6 % (11.5-14.5); RDW Standard Deviation 40.9 fL (36.4-46.3); Red Blood Count 4.96 M/uL (4.20-5.40); White Blood Count 11.91 K/ul (4.8-10.8)
[2023-03-12 01:38] LABS: Albumin Globulin Ratio 1.6 (0.9-2); BUN Creatinine Ratio 15.9 (10-20); Bilirubin,Total 0.9 mg/dl (0.2-1.0); Calcium 9.8 mg/dl (8.6-10.3); Creatinine Clr Calc Pharmacy 126.3 ml/min; Est GFR (African American) 122.7 ml/min; Est GFR (Non-African American) 105.9 ml/min; Globulin 3.1 gm/dl (2.5-4.0); Potassium 4.3 mmol/L (3.5-5.1); Total Protein 8.1 gm/dl (6.0-8.3)
[2023-03-12 01:43] LABS: Acetaminophen < 3 ug/ml (10-30); Salicylate < 3.0 mg/dl (3.0-30)
[2023-03-12] MEDS ORDERED: ACETAMINOPHEN 325 MG TAB PO PRN (04:37)
[2023-03-12] MEDS ORDERED: hydrOXYzine HCl 25 MG TAB PO PRN (04:37)
[2023-03-12] MEDS ORDERED: BISMUTH SUBSALICYLATE LIQD 236 ML PO PRN (04:37)
[2023-03-12] MEDS ORDERED: ALUMINUM/MAGNESIUM SUSP 30 ML UDC PO PRN (04:37)
[2023-03-12] MEDS ORDERED: MAGNESIUM HYDROXIDE SUSP 30 ML UDC PO PRN (04:37)
[2023-03-12] MEDS ORDERED: SODIUM CHLORIDE 0.65% NA SOLN 45 ML (OCEAN) PRN (04:37)
--- NOTE | 2023-03-12 09:11 | History & Physical ---
Date of Service March 12, 2023 Impression / Recommendations Impression 42 y/o woman with a history of bipolar disorder, TD with overwhelming anxiety and akathisia following recent change in deutetrabenazine. She appears to have some fairly mild mixed bipolar symptoms but what's impairing her ability to function right now is anxiety. It's very plausible that resuming the previous deutetrabenazine dose may be all that's needed, but that will be challenging since it's a non-formulary drug here and pt no longer has any of the IR form at home. (1) Bipolar I disorder with mixed features: (2) Tardive dyskinesia: (3) Akathisia: Plan The patient was admitted to the [facility] ([facility]) on q15 min checks (behavioral with suicide precautions) for safety. The patient will participate in group, recreational, and milieu therapies and will be offered additional individual and family sessions as clinically appropriate. * crush deutetrabenazine to circumvent XR mechanism, give 24 mg at HS * continue home medication 40 mg daily * continue home medication quetiapine 500 mg QHS * continue home medication metformin 1,000 mg BID Inventory Assets Strengths: supportive relationships, has local supports,voluntary, good insight, intelligent employed, Needs: safety and stabilization, medication adjustment, additional coping skills, increased outpatient services Suicide Risk Level Suicide Risk Level: Moderate (q15 min suicide checks) (denies current suicidal thoughts but is overwhelmed with anxiety. Contracts for safety.) Risk Factors Assessment Male: No : Yes Do You Have Access To A Gun?: No Health Problems: Yes Mental Health Diagnoses: Yes Substance Use Disorders: No Previous Attempt: No Family History of Suicide: Yes Previous Psychiatric Hospitalization: Yes Protective Factors Assessment : Yes Responsible for Young Children: No Employed: Yes ([employer]) Stable Relationships: Yes Supportive Family: Yes Good Rapport with Provider: Yes Psychiatric History Identifying Data FARNAZ PAK is a 42-year-old F who currently lives in [place] with her , has a history of bipolar disorder, and was admitted on 03/12/23 03:51 on a 201 voluntary commitment for overwhelming anxiety. Chief Complaint "I can't function, I'm so anxious". History of Present Illness As part of a thorough review of the available medical records, I have read and confirmed the following note by the ED physician: "The patient is a 42-year-old female with history of anxiety and depression, bipolar disorder, presents emergency department with chief complaint of increasing anxiety over the past week as well as suicidal thoughts. Patient states that she is having thoughts of wanting to cut her wrist to kill herself. Patient tells me that she has been having increasing anxiety but denies any hallucinations, on arrival here to the ED the patient is hemodynamically stable, she is in no acute distress. Denies any recent alcohol or drug use. Patient is cooperative on arrival but she is somewhat anxious appearing" and the following note by the ED psychiatric lead case manager: "Met with pt to complete MH assessment. 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 Pt states she feels like she is always under a microscope and that people just keep picking on the quality of her work. She does endorse a reduced appetite and poor sleep, stating that she sleeps a few hours here and there. Pt states she tends to wake up feeling panicked and struggles to fall back to sleep. She rates her anxiety as a constant 8 out of 10 with frequent panic attacks. Pt does occasionally engage in self harming by pinching herself. She denies any history of abuse or traumas. Denies a primary stressor. Sees Emerald Null at [place] for med management but does not have a therapist or counselor. She lives at home with her and can return there on discharge. Prior diagnosis of Bipolar Disorder, Diabetes, and TD. Pt prefers referral to [address] [place] [address] but is willing for [facility] if no beds are available there. She is voluntary for treatment at this time. Accompanied Dr. Remy to complete brief MH and suicide risk assessments. Pt is present with her . Pt states she has had increased anxiety and depression for the past week since a change in her medications. She states her prescriber changed the dosing schedule of her [place] from 24mg in the AM to 12 in the AM and 12 PM. She also endorses suicidal ideations with a plan to cut her wrists. Denies AH/VH. Denies drug or alcohol abuse. Pt states she has been inpatient 5 times previously with the most recent at [facility] approximately 2 years ago. Prior dx of Bipolar D/O." Review of the medical record reveals an admission to [facility] from our ED in 2020 with suicidal thoughts and a high-lethality plan. She has had several other admissions. Pt carries diagnosis of bipolar disorder. Review of pertinent labs reveals they are noncontributory except for leukocytosis. Urine toxicology screen was negative for all tested substrates. BAL was <10 mg/dL. Pt reports that she'd "actually been doing OK" until a medication change 2 weeks ago. She'd been taking deutetrabenazine presumably for tardive dyskinesia resulting from antipsychotic medication - she's currently on quetiapine and says she's been on other similar medications in the past but isn't able to provide details. Although the deutetrabenazine had been ordered 12 mg BID, she was taking all of it at bedtime, primarily due to difficulty remembering both doses but also because she thought it suppressed her "restlessness" better and allowed her to sleep. This was changed to deutetrabenazine XR, which pt "thought made sense" but she rapidly became much more restless. She describes a strong feeling that she must move (pace, move her legs) all the time. If she forces herself to stay still, this restlessness escalates and becomes unbearable. This is particularly severe at night and she says she's been unable to sleep for days. Denies much in the way of actual depressive symptoms other than reduced appetite, loss of interest, anhedonia, and trouble concentrating (most of which would not be specific to depression). However, when asked about depression she bursts into tears. Endorses "racing thoughts" but no other potential manic symptoms. Finds that she can't focus or concentrate to do anything. While she is attending to basic ADL's and has been making it to work, she's doing nothing else other than sitting and staring. She's stopped going for walks with her or engaging in any pastimes. Some of her anxieties don't make much sense to her - she will start worrying about something "unimportant" but her thoughts ramify to all sorts of very unlikely but terrible consequences. There's a clear obsessive quality to these worries, but she says she's never been diagnosed with OCD. She has actually been engaging in less self-harm (she pinches herself when anxious) because it hasn't helped and because she fears she might not be able to stop. Past Psychiatric History Current Psychiatric Diagnosis: Bipolar D/O, LEONARD Outpatient Services: prescriber but says she's never been in psychotherapy Previous Psych Admissions: about 5, most recently [facility] in 2020 Do You Have Access To A Gun?: No History of Previous Suicide Attempt: No Allergies Allergy/AdvReac Type Severity Reaction Status Date / Time morphine AdvReac Intermediate NAUSEA Verified 03/12/23 01:36 VOMITING oxycodone [From Percocet] AdvReac Intermediate Nausea Verified 03/12/23 01:36 Home Medications Medication Instructions Recorded Confirmed Type blood sugar diagnostic (FreeStyle #10 ea 10/05/19 02/04/23 History Lite Strips) lancets 28 gauge (FreeStyle #25 ea 10/05/19 02/04/23 History Lancets) quetiapine 100 mg tablet 100 mg PO HS 01/28/22 03/12/23 History metformin 1,000 mg tablet 1,000 mg PO BID #180 tabs 10/07/22 03/12/23 Rx fluoxetine 40 mg capsule 40 mg PO DAILY 02/04/23 03/12/23 History deutetrabenazine 24 mg 24 mg PO DAILY 03/12/23 03/12/23 History tablet,extended release 24 hr (Austedo XR) estradiol 0.1 mg/24 hr weekly 1 patch transdermal WK 03/12/23 03/12/23 History transdermal patch quetiapine 400 mg tablet 400 mg PO HS 03/12/23 03/12/23 History Family History Family History of: Suicide Attempts, Other-List under Comment and Bipolar Family Mental Health History Comment: Father-Bipolar Brother-Completed suicide Mother-OCD Alcohol History Hx of Alcohol Use Over the Past 12 Months: No AUDIT Total Score: 1 Smoking Use Have You Smoked or Used Tobacco Products in the Last 30 Days: No Smoking Status: Former smoker Substance History Hx of Prescription Med Misuse Over the Past 12 Months: No Hx of Over the Counter Med Misuse Over the Past 12 Months: No Hx of Inhalent Misuse Over the Past 12 Months: No Hx of Organic Substance Use Over the Past 12 Months: No Hx of Illegal Substances/Street Drug Use Over Past 12 Months: No Problems as a Result of Past Substance Use: None Identified Personal History Living Arrangements: Home Beliefs That Will Affect Care: None Patient History Medical History (Updated 03/12/23 @ 16:35 by Stanley James MD) Adrenal nodule Akathisia Anemia Bipolar I disorder with mixed features Constipation Depression Depression (11/26/12) Diabetes mellitus, type 2 NIDDM GERD (gastroesophageal reflux disease) controlled Health care maintenance Hyperglycemia Hypothyroidism Liver enzyme elevation Menopausal symptoms Obesity Post-operative complication 04/2019 [facility] HYSTER - BOWEL PERFORATION, HYDROPNEUMOTHORAX --> ileostomy, chest tube placement Postmenopausal hormone replacement therapy Postsurgical menopause Proteinuria Small bowel obstruction Suicidal thoughts Tardive dyskinesia Surgical History H/O oophorectomy RIGHT History of hysterectomy with unilateral oophorectomy 04/2019 [facility], fibroids, ov cyst bowel perf, hydropneumothorax complications. History of ileostomy reversed 08/2019 History of laparotomy OVARIAN CYSTECTOMY S/P appendectomy S/P chest tube placement S/P ileostomy Status post exploratory laparotomy Status post reversal of ileostomy Family History Grandmother (Maternal) Family history of diabetes mellitus Grandmother (Paternal) Family history of diabetes mellitus Grandfather (Paternal) Family history of esophageal cancer Other No family history of adverse response to anesthesia Denies family history of Ovarian cancer Prostate cancer Myocardial infarction Breast cancer Colorectal cancer Stroke Social History Smoking Status: Former smoker Second Hand Exposure: No; Do You Dip or Chew Tobacco: No; Hx Alcohol Use: No Hx Substance Use: No Preferred Language: Austrian 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: Effective Visual Impairment: No Limitations Hearing Ability: Normal [employer]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: No Beliefs That Will Affect Care: None marital status: Current Living Situation: Spouse current occupational status: employed Feels Safe at Home: Yes Dental Care, Regularly: Yes Seatbelt Use: always Sunscreen Use: Yes Gender Identity: Female Assistive Devices: None Review of Systems Psychiatric: as per Subjective / HPI, + anhedonia, + abnormal sleep pattern, + anxiety, + difficulty concentrating and + confusion; no hallucinations Physical Exam Psychiatric: Orientation: alert, oriented to person, oriented to place, oriented to time and cooperative Apperance: appropriately dressed and appropriately groomed Eye Contact: + fair eye contact Motor Behavior: + psychomotor agitation (wrings hands, fidgets) and + EPS (orobuccolingual tremor) Speech: + abnormal rate/rhythm/volume of speech (slow, quiet, brief) Affect: + anxious affect and + tearful affect Mood: + anxious mood Thought Process: + thought process not clear or coherent (has difficulty completing thoughts or staying on-topic) Thought Content: + preoccupation and + cognitive distortions; + delusional Suicidal Thoughts: denies suicidal thoughts, denies suicidal plan and denies suicidal intent Homicidal Thoughts: denies homicidal thoughts Hallucinations: no auditory hallucinations and no visual hallucinations Cognition: + recent memory not intact (highly distracted by anxiety), + remote memory not intact (highly distracted by anxiety) and + attention not intact (highly distracted by anxiety) Estimated Intelligence: consistent with education level Insight: + limited insight Judgment: + fair judgement Vital Signs (Past 24 Hours): Last Vital Signs Temp 36.8 C 03/12/23 06:35 Pulse 88 03/12/23 06:35 Resp 18 03/12/23 06:35 BP 131/98 03/12/23 06:35 Pulse Ox 98 03/12/23 04:40 O2 Del Method Room Air 03/12/23 04:40 Exam Statement: A physical exam was performed in the ED for the purposes of medical clearance. I accept that physical as correct and adequate for the purposes of the inpatient physical exam. Results & Data ([facility]) Laboratory Results Laboratory Results - last 24 hr 03/12/23 03/12/23 03/12/23 00:51 00:55 00:55 WBC RBC Hgb Hct MCV MCH MCHC RDW Std Deviation RDW Coeff of Mine Plt Count MPV Immature Gran % (Auto) Neut % (Auto) Lymph % (Auto) Tillman % (Auto) Eos % (Auto) Baso % (Auto) Neut # (Auto) Lymph # (Auto) Tillman # (Auto) Eos # (Auto) Baso # (Auto) Immature Gran # (Auto) Sodium 137 Potassium 4.3 Chloride 100 Carbon Dioxide 27 Anion Gap 10 BUN 11 Creatinine 0.69 Est Cr Clr Drug Dosing 126.3 Est GFR ( Amer) 122.7 Est GFR (Non-Af Amer) 105.9 BUN/Creatinine Ratio 15.9 Glucose 121 H Calcium 9.8 Total Bilirubin 0.9 AST 27 ALT 35 Alkaline Phosphatase 71 Total Protein 8.1 Albumin 5.0 Globulin 3.1 Albumin/Globulin Ratio 1.6 TSH Urine Color Yellow Urine Appearance Clear Urine pH 6.5 Ur Specific [place] 1.004 Urine Protein Negative Urine Glucose (UA) Negative Urine Ketones Negative Urine Blood Negative Urine Nitrite Negative Urine Bilirubin Negative Urine Urobilinogen Negative Ur Leukocyte Esterase 2+ H Urine WBC (Auto) 10-30 H Urine RBC (Auto) 0-4 U Hyaline Cast (Auto) 1-5 U Epithel Cells (Auto) >30 H Urine Bacteria (Auto) Negative Salicylates Urine Opiates Screen Neg Ur Methadone, Qual Neg Acetaminophen Urine Barbiturates Neg Ur Phencyclidine (PCP) Neg U Amphetamin/Meth Scrn Neg MDMA (Ecstasy) Screen Neg U Benzodiazepines Scrn Neg Ur Cocaine Metabolite Neg U Marijuana (THC) Screen Neg Ethyl Alcohol mg/dL SARS-CoV-2, RNA, NAAT 03/12/23 03/12/23 03/12/23 01:02 01:02 01:02 WBC 11.91 H RBC 4.96 Hgb 14.2 Hct 41.7 MCV 84.1 MCH 28.6 MCHC 34.1 RDW Std Deviation 40.9 RDW Coeff of Mine 13.6 Plt Count 289 MPV 11.0 Immature Gran % (Auto) 0.8 Neut % (Auto) 62.2 Lymph % (Auto) 28.9 Tillman % (Auto) 6.0 Eos % (Auto) 1.3 Baso % (Auto) 0.8 Neut # (Auto) 7.41 H Lymph # (Auto) 3.44 H Tillman # (Auto) 0.72 H Eos # (Auto) 0.15 Baso # (Auto) 0.09 Immature Gran # (Auto) 0.10 Sodium Potassium Chloride Carbon Dioxide Anion Gap BUN Creatinine Est Cr Clr Drug Dosing Est GFR ( Amer) Est GFR (Non-Af Amer) BUN/Creatinine Ratio Glucose Calcium Total Bilirubin AST ALT Alkaline Phosphatase Total Protein Albumin Globulin Albumin/Globulin Ratio TSH 3.628 Urine Color Urine Appearance Urine pH Ur Specific [place] Urine Protein Urine Glucose (UA) Urine Ketones Urine Blood Urine Nitrite Urine Bilirubin Urine Urobilinogen Ur Leukocyte Esterase Urine WBC (Auto) Urine RBC (Auto) U Hyaline Cast (Auto) U Epithel Cells (Auto) Urine Bacteria (Auto) Salicylates < 3.0 L Urine Opiates Screen Ur Methadone, Qual Acetaminophen < 3 L Urine Barbiturates Ur Phencyclidine (PCP) U Amphetamin/Meth Scrn MDMA (Ecstasy) Screen U Benzodiazepines Scrn Ur Cocaine Metabolite U Marijuana (THC) Screen Ethyl Alcohol mg/dL SARS-CoV-2, RNA, NAAT 03/12/23 03/12/23 01:02 Unknown WBC RBC Hgb Hct MCV MCH MCHC RDW Std Deviation RDW Coeff of Mine Plt Count MPV Immature Gran % (Auto) Neut % (Auto) Lymph % (Auto) Tillman % (Auto) Eos % (Auto) Baso % (Auto) Neut # (Auto) Lymph # (Auto) Tillman # (Auto) Eos # (Auto) Baso # (Auto) Immature Gran # (Auto) Sodium Potassium Chloride Carbon Dioxide Anion Gap BUN Creatinine Est Cr Clr Drug Dosing Est GFR ( Amer) Est GFR (Non-Af Amer) BUN/Creatinine Ratio Glucose Calcium Total Bilirubin AST ALT Alkaline Phosphatase Total Protein Albumin Globulin Albumin/Globulin Ratio TSH Urine Color Urine Appearance Urine pH Ur Specific [place] Urine Protein Urine Glucose (UA) Urine Ketones Urine Blood Urine Nitrite Urine Bilirubin Urine Urobilinogen Ur Leukocyte Esterase Urine WBC (Auto) Urine RBC (Auto) U Hyaline Cast (Auto) U Epithel Cells (Auto) Urine Bacteria (Auto) Salicylates Urine Opiates Screen Ur Methadone, Qual Acetaminophen Urine Barbiturates Ur Phencyclidine (PCP) U Amphetamin/Meth Scrn MDMA (Ecstasy) Screen U Benzodiazepines Scrn Ur Cocaine Metabolite U Marijuana (THC) Screen Ethyl Alcohol mg/dL < 10.0 SARS-CoV-2, RNA, NAAT NEGATIVE Current Inpatient Medications Current Inpatient Medications: Current Inpatient Medications Acetaminophen (Acetaminophen 325 Mg Tab) 650 mg PO Q4H PRN PRN Reason: Headache or Minor Fever Stop: 04/11/23 04:36 Al Hydrox/Mg Hydrox/Simethicone (Aluminum/Magnesium Susp 30 Ml Udc) 30 ml PO Q4H PRN PRN Reason: GI Upset Stop: 04/11/23 04:36 Bismuth Subsalicylate (Bismuth Subsalicylate Liqd 236 Ml) 15 ml PO PRN PRN PRN Reason: Loose Stool Stop: 04/11/23 04:36 Hydroxyzine HCl (Hydroxyzine Hcl 25 Mg Tab) 50 mg PO HSZ PRN PRN Reason: Insomnia Stop: 04/11/23 04:36 Hydroxyzine HCl (Hydroxyzine Hcl 25 Mg Tab) 25 mg PO Q4H PRN PRN Reason: Anxiety Stop: 04/11/23 04:36 Magnesium Hydroxide (Magnesium Hydroxide Susp 30 Ml Udc) 30 ml PO DAILY PRN PRN Reason: Constipation Stop: 04/11/23 04:36 Sodium Chloride (Sodium Chloride 0.65% Na Soln 45 Ml (Dubois)) 1 - 2 sprays NA PRN PRN PRN Reason: Nasal Dryness/Congestion Stop: 04/11/23 04:36
[2023-03-12] MEDS: metFORMIN HCL 500 MG TAB PO SCH (17:35)
[2023-03-12] MEDS: FLUoxetine HCL 20 MG CAP PO SCH (17:36)
[2023-03-12] MEDS: AUSTEDO 24 MG PO SCH (21:26)
[2023-03-12] MEDS: QUEtiapine FUMARATE 200 MG TAB PO SCH (21:30)
[2023-03-12] MEDS: QUEtiapine FUMARATE 100 MG TABLET PO SCH (21:31)
[2023-03-12] MEDS: hydrOXYzine HCl 25 MG TAB PO PRN (21:31)
[2023-03-13] MEDS: FLUoxetine HCL 20 MG CAP PO SCH (08:44)
[2023-03-13] MEDS: metFORMIN HCL 500 MG TAB PO SCH ×2 (08:44→17:39)
--- NOTE | 2023-03-13 14:46 | Psychiatric Progress Note ---
Date of Service March 13, 2023 Impression / Recommendations Impression 42 y/o woman with a history of bipolar disorder, TD with overwhelming anxiety and akathisia following recent change in deutetrabenazine. She appears to have some fairly mild mixed bipolar symptoms but what's impairing her ability to function right now is anxiety. It's very plausible that resuming the previous deutetrabenazine dose may be all that's needed, but that will be challenging since it's a non-formulary drug here and pt no longer has any of the IR form at home. 03/13/2023: Has remained "kind of overwhelmed". Was tearful last night, got hydroxyzine which appeared to help. Is now back at [id number] the medications she'd been taking when she reported doing well, so if her sense that the med change was the primary factor is accurate, it shouldn't take very long to see that. During a visit from her was observed as engaged in interacting, some smiling and laughing. (1) Bipolar I disorder with mixed features: (2) Tardive dyskinesia: (3) Akathisia: Plan 03/13/2023: * continue deutetrabenazine XL 24 mg QHS, crushed to circumvent XR mechanism * continue home medication fluoxetine 40 mg daily * continue home medication quetiapine 500 mg QHS * continue home medication metformin 1,000 mg BID 03/13/2023: The patient was admitted to the [facility] ([facility]) on q15 min checks (behavioral with suicide precautions) for safety. The patient will participate in group, recreational, and milieu therapies and will be offered additional individual and family sessions as clinically appropriate. * crush deutetrabenazine to circumvent XR mechanism, give 24 mg at HS * continue home medication fluoxetine 40 mg daily * continue home medication quetiapine 500 mg QHS * continue home medication metformin 1,000 mg BID Inventory Assets Strengths: supportive relationships, has local supports,voluntary, good insight, intelligent employed, Needs: safety and stabilization, medication adjustment, additional coping skills, increased outpatient services Suicide Risk Level Suicide Risk Level: Moderate (q15 min suicide checks) (denies current suicidal thoughts but is overwhelmed with anxiety. Contracts for safety.) Risk Factors Assessment Male: No : Yes Do You Have Access To A Gun?: No Health Problems: Yes Mental Health Diagnoses: Yes Substance Use Disorders: No Previous Attempt: No Family History of Suicide: Yes Previous Psychiatric Hospitalization: Yes Protective Factors Assessment : Yes Responsible for Young Children: No Employed: Yes ([employer]) Stable Relationships: Yes Supportive Family: Yes Good Rapport with Provider: Yes Interval History Identifying Information FARNAZ PAK is a 42-year-old F who currently lives in [place] with her , has a history of bipolar disorder, and was admitted on 03/12/23 03:51 on a 201 voluntary commitment for overwhelming anxiety. Chief Complaint "Not much different". Review of Systems Sleep Information Total Hours of Sleep: 7.5 Sleep Comments: new admit at 0420 Meal Information Percent Meal Consumed - Breakfast: 100 Percent Meal Consumed - Lunch: 100 Percent Meal Consumed - Dinner: 100 Subjective Subjective Patient was seen & assessed and interval progress reviewed in a multidisciplinary team meeting with the treatment team. For details, see the "Impression" section. Physical Exam Psychiatric Orientation: alert, oriented to person, oriented to place, oriented to time and cooperative Apperance: appropriately dressed and appropriately groomed Eye Contact: + fair eye contact Motor Behavior: + psychomotor agitation (wrings hands, fidgets) and + EPS (orobuccolingual tremor) Speech: + abnormal rate/rhythm/volume of speech (slow, quiet, brief) Affect: + anxious affect and + tearful affect Mood: + anxious mood Thought Process: + thought process not clear or coherent (has difficulty completing thoughts or staying on-topic) Thought Content: + preoccupation and + cognitive distortions; + delusional Suicidal Thoughts: denies suicidal thoughts, denies suicidal plan and denies suicidal intent Homicidal Thoughts: denies homicidal thoughts Hallucinations: no auditory hallucinations and no visual hallucinations Cognition: + recent memory not intact (highly distracted by anxiety), + remote memory not intact (highly distracted by anxiety) and + attention not intact (highly distracted by anxiety) Estimated Intelligence: consistent with education level Insight: + limited insight Judgment: + fair judgement Vital Signs (Past 24 Hours) Last Vital Signs Temp 36.7 C 03/13/23 06:40 Pulse 83 03/13/23 06:40 Resp 16 03/13/23 06:40 BP 151/96 H 03/13/23 06:40 Pulse Ox 98 03/12/23 04:40 O2 Del Method Room Air 03/12/23 04:40 Results & Data ([facility]) Current Inpatient Medications Current Inpatient Medications: Current Inpatient Medications Acetaminophen (Acetaminophen 325 Mg Tab) 650 mg PO Q4H PRN PRN Reason: Headache or Minor Fever Stop: 04/11/23 04:36 Last Admin: 03/13/23 09:45 Dose: 650 mg Al Hydrox/Mg Hydrox/Simethicone (Aluminum/Magnesium Susp 30 Ml Udc) 30 ml PO Q4H PRN PRN Reason: GI Upset Stop: 04/11/23 04:36 Bismuth Subsalicylate (Bismuth Subsalicylate Liqd 236 Ml) 15 ml PO PRN PRN PRN Reason: Loose Stool Stop: 04/11/23 04:36 Deutetrabenazine (Austedo Xr 24 Mg- Pt Own) 1 each PO HS JANICE Stop: 04/11/23 21:59 Last Admin: 03/12/23 21:26 Dose: 1 each Estradiol (Estradiol 0.1 Mg/24hrs Tdsy) 0.1 mg TD Fr@0900 JANICE Stop: 04/13/23 08:59 Fluoxetine HCl (Fluoxetine Hcl 20 Mg Cap) 40 mg PO DAILY JANICE Stop: 04/11/23 16:49 Last Admin: 03/13/23 08:44 Dose: 40 mg Hydroxyzine HCl (Hydroxyzine Hcl 25 Mg Tab) 50 mg PO HSZ PRN PRN Reason: Insomnia Stop: 04/11/23 04:36 Last Admin: 03/12/23 21:31 Dose: 50 mg Hydroxyzine HCl (Hydroxyzine Hcl 25 Mg Tab) 25 mg PO Q4H PRN PRN Reason: Anxiety Stop: 04/11/23 04:36 Last Admin: 03/12/23 18:59 Dose: 25 mg Magnesium Hydroxide (Magnesium Hydroxide Susp 30 Ml Udc) 30 ml PO DAILY PRN PRN Reason: Constipation Stop: 04/11/23 04:36 Metformin HCl (Metformin Hcl 500 Mg Tab) 1,000 mg PO BIDM JANICE Stop: 04/11/23 17:44 Last Admin: 03/13/23 08:44 Dose: 1,000 mg Quetiapine Fumarate (Quetiapine Fumarate 200 Mg Tab) 400 mg PO HS JANICE Stop: 04/11/23 21:59 Last Admin: 08/30/23 21:30 Dose: 400 mg Quetiapine Fumarate (Quetiapine Fumarate 100 Mg Tablet) 100 mg PO HS JANICE Stop: 04/11/23 21:59 Last Admin: 03/12/23 21:31 Dose: 100 mg Sodium Chloride (Sodium Chloride 0.65% Na Soln 45 Ml ([place])) 1 - 2 sprays NA PRN PRN PRN Reason: Nasal Dryness/Congestion Stop: 04/11/23 04:36 Last Admin: 03/12/23 17:16 Dose: 2 sprays Mental Health & Subst Abuse Tx Psychiatrist Name of Psychiatrist: Miko Null Psychiatrist's Psychiatric Appointment Comment: [address] [place], [place] Therapist Name of Therapist: Miko Vela- on waiting list [employer] Name of [employer] Marketing: KELLEN Post Discharge Appointments Primary Care Physician Name Of Family Doctor/PCP: CM Primary Care Provider Appointment Comment: please follow up as needed
[2023-03-13] MEDS: AUSTEDO 24 MG PO SCH (21:30)
[2023-03-13] MEDS: QUEtiapine FUMARATE 200 MG TAB PO SCH (21:30)
[2023-03-13] MEDS: QUEtiapine FUMARATE 100 MG TABLET PO SCH (21:31)
[2023-03-13] MEDS: hydrOXYzine HCl 25 MG TAB PO PRN ×2 (21:37→22:58)
[2023-03-14] MEDS ORDERED: ESTRADIOL 0.1 MG/24hrs TDSY TD SCH (09:00)
[2023-03-14] MEDS: metFORMIN HCL 500 MG TAB PO SCH (09:06)
[2023-03-14] MEDS: FLUoxetine HCL 20 MG CAP PO SCH (09:06)
--- NOTE | 2023-03-14 09:23 | Psychiatric Progress Note ---
Date of Service March 14, 2023 Impression / Recommendations Impression 42 y/o woman with a history of bipolar disorder, TD with overwhelming anxiety and akathisia following recent change in deutetrabenazine. She appears to have some fairly mild mixed bipolar symptoms but what's impairing her ability to function right now is anxiety. It's very plausible that resuming the previous deutetrabenazine dose may be all that's needed, but that will be challenging since it's a non-formulary drug here and pt no longer has any of the IR form at home. 03/13/2023: Has remained "kind of overwhelmed". Was tearful last night, got hydroxyzine which appeared to help. Is now back at [id number] the medications she'd been taking when she reported doing well, so if her sense that the med change was the primary factor is accurate, it shouldn't take very long to see that. During a visit from her was observed as engaged in interacting, some smiling and laughing. (1) Bipolar I disorder with mixed features: (2) Tardive dyskinesia: (3) Akathisia: Plan 03/13/2023: * continue deutetrabenazine XL 24 mg QHS, crushed to circumvent XR mechanism * continue home medication fluoxetine 40 mg daily * continue home medication quetiapine 500 mg QHS * continue home medication metformin 1,000 mg BID 03/13/2023: The patient was admitted to the [facility] ([facility]) on q15 min checks (behavioral with suicide precautions) for safety. The patient will participate in group, recreational, and milieu therapies and will be offered additional individual and family sessions as clinically appropriate. * crush deutetrabenazine to circumvent XR mechanism, give 24 mg at HS * continue home medication fluoxetine 40 mg daily * continue home medication quetiapine 500 mg QHS * continue home medication metformin 1,000 mg BID Inventory Assets Strengths: supportive relationships, has local supports,voluntary, good insight, intelligent employed, Needs: safety and stabilization, medication adjustment, additional coping skills, increased outpatient services Suicide Risk Level Suicide Risk Level: Moderate (q15 min suicide checks) (denies current suicidal thoughts but is overwhelmed with anxiety. Contracts for safety.) Risk Factors Assessment Male: No : Yes Do You Have Access To A Gun?: No Health Problems: Yes Mental Health Diagnoses: Yes Substance Use Disorders: No Previous Attempt: No Family History of Suicide: Yes Previous Psychiatric Hospitalization: Yes Protective Factors Assessment : Yes Responsible for Young Children: No Employed: Yes ([employer]) Stable Relationships: Yes Supportive Family: Yes Good Rapport with Provider: Yes Interval History Identifying Information FARNAZ PAK is a 42-year-old F who currently lives in [place] with her , has a history of bipolar disorder, and was admitted on 03/12/23 03:51 on a 201 voluntary commitment for overwhelming anxiety. Chief Complaint "[]". Review of Systems Sleep Information Total Hours of Sleep: 5 Sleep Comments: new admit at 0420 Meal Information Percent Meal Consumed - Breakfast: 50 Percent Meal Consumed - Lunch: 100 Percent Meal Consumed - Dinner: 100 Subjective Subjective Patient was seen & assessed and interval progress reviewed with [treatment team] [nursing and social work] Physical Exam Psychiatric Orientation: alert, oriented to person, oriented to place, oriented to time and cooperative Apperance: appropriately dressed and appropriately groomed Eye Contact: + fair eye contact Motor Behavior: + psychomotor agitation (wrings hands, fidgets) and + EPS (orobuccolingual tremor) Speech: + abnormal rate/rhythm/volume of speech (slow, quiet, brief) Affect: + anxious affect and + tearful affect Mood: + anxious mood Thought Process: + thought process not clear or coherent (has difficulty completing thoughts or staying on-topic) Thought Content: + preoccupation and + cognitive distortions; + delusional Suicidal Thoughts: denies suicidal thoughts, denies suicidal plan and denies suicidal intent Homicidal Thoughts: denies homicidal thoughts Hallucinations: no auditory hallucinations and no visual hallucinations Cognition: + recent memory not intact (highly distracted by anxiety), + remote memory not intact (highly distracted by anxiety) and + attention not intact (highly distracted by anxiety) Estimated Intelligence: consistent with education level Insight: + limited insight Judgment: + fair judgement Vital Signs (Past 24 Hours) Last Vital Signs Temp 36.6 C 03/14/23 06:46 Pulse 86 03/14/23 06:46 Resp 16 03/14/23 06:46 BP 129/88 03/14/23 06:46 Pulse Ox 98 03/12/23 04:40 O2 Del Method Room Air 03/12/23 04:40 Results & Data ([facility]) Current Inpatient Medications Current Inpatient Medications: Current Inpatient Medications Acetaminophen (Acetaminophen 325 Mg Tab) 650 mg PO Q4H PRN PRN Reason: Headache or Minor Fever Stop: 04/11/23 04:36 Last Admin: 03/13/23 09:45 Dose: 650 mg Al Hydrox/Mg Hydrox/Simethicone (Aluminum/Magnesium Susp 30 Ml Udc) 30 ml PO Q4H PRN PRN Reason: GI Upset Stop: 04/11/23 04:36 Bismuth Subsalicylate (Bismuth Subsalicylate Liqd 236 Ml) 15 ml PO PRN PRN PRN Reason: Loose Stool Stop: 04/11/23 04:36 Deutetrabenazine (Austedo Xr 24 Mg- Pt Own) 1 each PO HS JANICE Stop: 04/11/23 21:59 Last Admin: 03/13/23 21:30 Dose: 1 each Estradiol (Estradiol 0.1 Mg/24hrs Tdsy) 0.1 mg TD Fr@0900 JANICE Stop: 04/13/23 08:59 Last Admin: 03/14/23 09:05 Dose: 0.1 mg Fluoxetine HCl (Fluoxetine Hcl 20 Mg Cap) 40 mg PO DAILY JANICE Stop: 04/11/23 16:49 Last Admin: 03/14/23 09:06 Dose: 40 mg Hydroxyzine HCl (Hydroxyzine Hcl 25 Mg Tab) 50 mg PO HSZ PRN PRN Reason: Insomnia Stop: 04/11/23 04:36 Last Admin: 03/13/23 22:58 Dose: 50 mg Hydroxyzine HCl (Hydroxyzine Hcl 25 Mg Tab) 25 mg PO Q4H PRN PRN Reason: Anxiety Stop: 04/11/23 04:36 Last Admin: 03/12/23 18:59 Dose: 25 mg Magnesium Hydroxide (Magnesium Hydroxide Susp 30 Ml Udc) 30 ml PO DAILY PRN PRN Reason: Constipation Stop: 04/11/23 04:36 Metformin HCl (Metformin Hcl 500 Mg Tab) 1,000 mg PO BIDM JANICE Stop: 04/11/23 17:44 Last Admin: 03/14/23 09:06 Dose: 1,000 mg Quetiapine Fumarate (Quetiapine Fumarate 200 Mg Tab) 400 mg PO HS JANICE Stop: 04/11/23 21:59 Last Admin: 03/13/23 21:30 Dose: 400 mg Quetiapine Fumarate (Quetiapine Fumarate 100 Mg Tablet) 100 mg PO HS JANICE Stop: 04/11/23 21:59 Last Admin: 03/13/23 21:31 Dose: 100 mg Sodium Chloride (Sodium Chloride 0.65% Na Soln 45 Ml ([place])) 1 - 2 sprays NA PRN PRN PRN Reason: Nasal Dryness/Congestion Stop: 04/11/23 04:36 Last Admin: 03/12/23 17:16 Dose: 2 sprays Mental Health & Subst Abuse Tx Psychiatrist Name of Psychiatrist: Miko Null Psychiatrist's Psychiatric Appointment Comment: [address] [place], [place] Therapist Name of Therapist: Miko Vela- on waiting list Small Equipment Operator Name of Small Equipment Operator: KELLEN Post Discharge Appointments Primary Care Physician Name Of Family Doctor/PCP: CM Primary Care Provider Appointment Comment: please follow up as needed
--- NOTE | 2023-03-14 12:01 | Discharge Summary ---
Date of Service March 14, 2023 History of Present Illness As part of a thorough review of the available medical records, I have read and confirmed the following note by the ED physician: "The patient is a 42-year-old female with history of anxiety and depression, bipolar disorder, presents emergency department with chief complaint of increasing anxiety over the past week as well as suicidal thoughts. Patient states that she is having thoughts of wanting to cut her wrist to kill herself. Patient tells me that she has been having increasing anxiety but denies any hallucinations, on arrival here to the ED the patient is hemodynamically stable, she is in no acute distress. Denies any recent alcohol or drug use. Patient is cooperative on arrival but she is somewhat anxious appearing" and the following note by the ED psychiatric caser up: "Met with pt to complete MH assessment. 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 Pt states she feels like she is always under a microscope and that people just keep picking on the quality of her work. She does endorse a reduced appetite and poor sleep, stating that she sleeps a few hours here and there. Pt states she tends to wake up feeling panicked and struggles to fall back to sleep. She rates her anxiety as a constant 8 out of 10 with frequent panic attacks. Pt does occasionally engage in self harming by pinching herself. She denies any history of abuse or traumas. Denies a primary stressor. Sees Emerald Null at [facility] for med management but does not have a therapist or counselor. She lives at home with her and can return there on discharge. Prior diagnosis of Bipolar Disorder, Diabetes, and TD. Pt prefers referral to [address] [place] [address] but is willing for [facility] if no beds are available there. She is voluntary for treatment at this time. Accompanied Dr. Remy to complete brief MH and suicide risk assessments. Pt is present with her . Pt states she has had increased anxiety and depression for the past week since a change in her medications. She states her prescriber changed the dosing schedule of her Austedo from 24mg in the AM to 12 in the AM and 12 PM. She also endorses suicidal ideations with a plan to cut her wrists. Denies AH/VH. Denies drug or alcohol abuse. Pt states she has been inpatient 5 times previously with the most recent at [facility] approximately 2 years ago. Prior dx of Bipolar D/O." Review of the medical record reveals an admission to [facility] from our ED in 2020 with suicidal thoughts and a high-lethality plan. She has had several other admissions. Pt carries diagnosis of bipolar disorder. Review of pertinent labs reveals they are noncontributory except for leukocytosis. Urine toxicology screen was negative for all tested substrates. BAL was <10 mg/dL. Pt reports that she'd "actually been doing OK" until a medication change 2 weeks ago. She'd been taking deutetrabenazine presumably for tardive dyskinesia resulting from antipsychotic medication - she's currently on quetiapine and says she's been on other similar medications in the past but isn't able to provide details. Although the deutetrabenazine had been ordered 12 mg BID, she was taking all of it at bedtime, primarily due to difficulty remembering both doses but also because she thought it suppressed her "restlessness" better and allowed her to sleep. This was changed to deutetrabenazine XR, which pt "thought made sense" but she rapidly became much more restless. She describes a strong feeling that she must move (pace, move her legs) all the time. If she forces herself to stay still, this restlessness escalates and becomes unbearable. This is particularly severe at night and she says she's been unable to sleep for days. Denies much in the way of actual depressive symptoms other than reduced appetite, loss of interest, anhedonia, and trouble concentrating (most of which would not be specific to depression). However, when asked about depression she bursts into tears. Endorses "racing thoughts" but no other potential manic sympt oms. Finds that she can't focus or concentrate to do anything. While she is attending to basic ADL's and has been making it to work, she's doing nothing else other than sitting and staring. She's stopped going for walks with her or engaging in any pastimes. Some of her anxieties don't make much sense to her - she will start worrying about something "unimportant" but her thoughts ramify to all sorts of very unlikely but terrible consequences. There's a clear obsessive quality to these worries, but she says she's never been diagnosed with OCD. She has actually been engaging in less self-harm (she pinches herself when anxious) because it hasn't helped and because she fears she might not be able to stop. Physical Exam Psychiatric Orientation: alert, oriented to person, oriented to place, oriented to time and cooperative Apperance: appropriately dressed and appropriately groomed Eye Contact: + fair eye contact Motor Behavior: + psychomotor agitation (wrings hands, fidgets) and + EPS (orobuccolingual tremor) Speech: + abnormal rate/rhythm/volume of speech (slow, quiet, brief) Affect: + anxious affect Mood: + anxious mood Thought Process: + thought process not clear or coherent (has difficulty completing thoughts or staying on-topic) Thought Content: + preoccupation and + cognitive distortions Suicidal Thoughts: denies suicidal thoughts, denies suicidal plan and denies suicidal intent Homicidal Thoughts: denies homicidal thoughts Hallucinations: no auditory hallucinations and no visual hallucinations Cognition: recent memory grossly intact and remote memory grossly intact; + attention not intact (distracted by anxiety) Estimated Intelligence: consistent with education level Insight: + limited insight Judgment: + fair judgement Vital Signs (Past 24 Hours) Last Vital Signs Temp 36.6 C 03/14/23 06:46 Pulse 86 03/14/23 06:46 Resp 16 03/14/23 06:46 BP 129/88 03/14/23 06:46 Pulse Ox 98 03/12/23 04:40 O2 Del Method Room Air 03/12/23 04:40 See admission H&P and DOD assessment. Principal Diagnosis Bipolar I Disorder, Mixed, Moderate Psychiatric Data See daily stay summary. In short, safety was maintained and the patient was cooperative with care. Medication changes included crushing the deutetrabenazine XR she brought in from home and administering it in a single HS dose in order to approximate how she'd been taking deutetrabenazine prior to the dose change, and they tolerated this well. A family session was held and safety plan was completed prior to discharge. 03/13/2023: Has remained "kind of overwhelmed". Was tearful last night, got hydroxyzine which appeared to help. Is now back at [id number] the medications she'd been taking when she reported doing well, so if her sense that the med change was the primary factor is accurate, it shouldn't take very long to see that. During a visit from her was observed as engaged in interacting, some smiling and laughing. Day of Discharge Assessment Today the patient voices readiness for discharge. They note improvement in mood and deny thoughts to harm self or others. Thoughts remain organized and they are improved from admission. There is no evidence of psychosis. They agree to take mediations as prescribed and keep follow-up appointments. They are stable for discharge to outpatient level of care. Transition of Care Transition Of Care Record: was reviewed with the patient Advance Directives Advance Directives Information Provided: Yes Advance Directives: No Mental Health Advance Directive: No Advance Directives on File: No Living Will: No Power of Strategic Account Manager: No Advance Directives Reason:: Declines as Mental Health Visit. Suicide Risk Level Suicide Risk Level: Low (q15 min observation checks) Suicide Risk Level Comments: denies suicidal thoughts Risk Factors Assessment Male: No : Yes Do You Have Access To A Gun?: No Health Problems: Yes Mental Health Diagnoses: Yes Substance Use Disorders: No Previous Attempt: No Family History of Suicide: Yes Previous Psychiatric Hospitalization: Yes Protective Factors Assessment : Yes Responsible for Young Children: No Employed: Yes ([employer]) Stable Relationships: Yes Supportive Family: Yes Good Rapport with Provider: Yes Tobacco Cessation at Discharge Tobacco Cessation Medication Prescribed at Discharge: Not Applicable/Non-Smoker Total Time Total Time Spent: Greater Than 30 Minutes Total Time Includes: Examination of the patient, Discharge Planning, Medication Reconciliation and As well as (documentation) Discharge Data Lab Results 03/12/23 03/12/23 03/12/23 00:51 00:55 00:55 WBC RBC Hgb Hct MCV MCH MCHC RDW Std Deviation RDW Coeff of Mine Plt Count MPV Immature Gran % (Auto) Neut % (Auto) Lymph % (Auto) [place] % (Auto) Eos % (Auto) Baso % (Auto) Neut # (Auto) Lymph # (Auto) [place] # (Auto) Eos # (Auto) Baso # (Auto) Immature Gran # (Auto) Sodium 137 Potassium 4.3 Chloride 100 Carbon Dioxide 27 Anion Gap 10 BUN 11 Creatinine 0.69 Est Cr Clr Drug Dosing 126.3 Est GFR ( Amer) 122.7 Est GFR (Non-Af Amer) 105.9 BUN/Creatinine Ratio 15.9 Glucose 121 H Calcium 9.8 Total Bilirubin 0.9 AST 27 ALT 35 Alkaline Phosphatase 71 Total Protein 8.1 Albumin 5.0 Globulin 3.1 Albumin/Globulin Ratio 1.6 TSH Urine Color Yellow Urine Appearance Clear Urine pH 6.5 Ur Specific [place] 1.004 Urine Protein Negative Urine Glucose (UA) Negative Urine Ketones Negative Urine Blood Negative Urine Nitrite Negative Urine Bilirubin Negative Urine Urobilinogen Negative Ur Leukocyte Esterase 2+ H Urine WBC (Auto) 10-30 H Urine RBC (Auto) 0-4 U Hyaline Cast (Auto) 1-5 U Epithel Cells (Auto) >30 H Urine Bacteria (Auto) Negative Salicylates Urine Opiates Screen Neg Ur Methadone, Qual Neg Acetaminophen Urine Barbiturates Neg Ur Phencyclidine (PCP) Neg U Amphetamin/Meth Scrn Neg MDMA (Ecstasy) Screen Neg U Benzodiazepines Scrn Neg Ur Cocaine Metabolite Neg U Marijuana (THC) Screen Neg Ethyl Alcohol mg/dL SARS-CoV-2, RNA, NAAT 03/12/23 03/12/23 03/12/23 01:02 01:02 01:02 WBC 11.91 H RBC 4.96 Hgb 14.2 Hct 41.7 MCV 84.1 MCH 28.6 MCHC 34.1 RDW Std Deviation 40.9 RDW Coeff of Mine 13.6 Plt Count 289 MPV 11.0 Immature Gran % (Auto) 0.8 Neut % (Auto) 62.2 Lymph % (Auto) 28.9 [place] % (Auto) 6.0 Eos % (Auto) 1.3 Baso % (Auto) 0.8 Neut # (Auto) 7.41 H Lymph # (Auto) 3.44 H [place] # (Auto) 0.72 H Eos # (Auto) 0.15 Baso # (Auto) 0.09 Immature Gran # (Auto) 0.10 Sodium Potassium Chloride Carbon Dioxide Anion Gap BUN Creatinine Est Cr Clr Drug Dosing Est GFR ( Amer) Est GFR (Non-Af Amer) BUN/Creatinine Ratio Glucose Calcium Total Bilirubin AST ALT Alkaline Phosphatase Total Protein Albumin Globulin Albumin/Globulin Ratio TSH 3.628 Urine Color Urine Appearance Urine pH Ur Specific [place] Urine Protein Urine Glucose (UA) Urine Ketones Urine Blood Urine Nitrite Urine Bilirubin Urine Urobilinogen Ur Leukocyte Esterase Urine WBC (Auto) Urine RBC (Auto) U Hyaline Cast (Auto) U Epithel Cells (Auto) Urine Bacteria (Auto) Salicylates < 3.0 L Urine Opiates Screen Ur Methadone, Qual Acetaminophen < 3 L Urine Barbiturates Ur Phencyclidine (PCP) U Amphetamin/Meth Scrn MDMA (Ecstasy) Screen U Benzodiazepines Scrn Ur Cocaine Metabolite U Marijuana (THC) Screen Ethyl Alcohol mg/dL SARS-CoV-2, RNA, NAAT 03/12/23 03/12/23 01:02 Unknown WBC RBC Hgb Hct MCV MCH MCHC RDW Std Deviation RDW Coeff of Mine Plt Count MPV Immature Gran % (Auto) Neut % (Auto) Lymph % (Auto) [place] % (Auto) Eos % (Auto) Baso % (Auto) Neut # (Auto) Lymph # (Auto) [place] # (Auto) Eos # (Auto) Baso # (Auto) Immature Gran # (Auto) Sodium Potassium Chloride Carbon Dioxide Anion Gap BUN Creatinine Est Cr Clr Drug Dosing Est GFR ( Amer) Est GFR (Non-Af Amer) BUN/Creatinine Ratio Glucose Calcium Total Bilirubin AST ALT Alkaline Phosphatase Total Protein Albumin Globulin Albumin/Globulin Ratio TSH Urine Color Urine Appearance Urine pH Ur Specific [place] Urine Protein Urine Glucose (UA) Urine Ketones Urine Blood Urine Nitrite Urine Bilirubin Urine Urobilinogen Ur Leukocyte Esterase Urine WBC (Auto) Urine RBC (Auto) U Hyaline Cast (Auto) U Epithel Cells (Auto) Urine Bacteria (Auto) Salicylates Urine Opiates Screen Ur Methadone, Qual Acetaminophen Urine Barbiturates Ur Phencyclidine (PCP) U Amphetamin/Meth Scrn MDMA (Ecstasy) Screen U Benzodiazepines Scrn Ur Cocaine Metabolite U Marijuana (THC) Screen Ethyl Alcohol mg/dL < 10.0 SARS-CoV-2, RNA, NAAT NEGATIVE Hospital Course (1) Bipolar I disorder with mixed features: (2) Tardive dyskinesia: (3) Akathisia: Plan 03/13/2023: * continue deutetrabenazine XL 24 mg QHS, crushed to circumvent XR mechanism * continue home medication fluoxetine 40 mg daily * continue home medication quetiapine 500 mg QHS * continue home medication metformin 1,000 mg BID 03/12/2023: The patient was [facility] on q15 min checks (behavioral with suicide precautions) for safety. The patient will participate in group, recreational, and milieu therapies and will be offered additional individual and family sessions as clinically appropriate. * crush deutetrabenazine to circumvent XR mechanism, give 24 mg at HS * continue home medication fluoxetine 40 mg daily * continue home medication quetiapine 500 mg QHS * continue home medication metformin 1,000 mg BID Mental Health & Subst Abuse Tx Psychiatrist Name of Psychiatrist: Miko Abrahamisti [facility] Psychiatric Appointment Comment: [address] [place], [place] Therapist Name of Therapist: Miko Vela- on waiting list Seat Joiner Chainstitch Name of Seat Joiner Chainstitch: KELLEN Post Discharge Appointments Primary Care Physician Name Of Family Doctor/PCP: CM Primary Care Provider Appointment Comment: please follow up as needed Smoking Cessation Counseling Tobacco Cessation Medication Prescribed at Discharge: Not Applicable/Non-Smoker Discharge Plan Discharge Items Patient Disposition: Home - Self-Care Reason For Visit: BIPOLAR DEPRESSION Discharge Diagnosis: Bipolar I Disorder, Mixed, Moderate Activity: Resume your previous activity Non-emergency contact: Primary Care Provider and Psychiatrist Call non-emergency contact if: your symptoms worsen Follow-up/Referrals: Ron Mccracken MD [Primary Care Provider] - Diet: Regular Addtl Attending Provider Instructions: SPECIAL CARE INSTRUCTIONS: 1. Follow through with your scheduled aftercare appointments. If unable to keep an appointment, please call to reschedule. 2. Take your medication only as prescribed. Medication should not be changed or stopped without the approval of your doctor. In the event of worsening symptoms or concerns about side effects, contact your doctor immediately. 3. Utilize new healthy coping skills, anger management skills, and stress management skills learned during your hospitalization. Journal feelings and process them with a support person. Identify stressors or situations that may result in relapse, deterioration or inappropriate behaviors and develop a plan to deal with those issues. 4. If your coping skills are ineffective and you are in crisis, contact your outpatient providers for direction. If unable to reach your providers, please call the [facility] CRISIS LINE AT , go to the [facility] walk-in center at [address], [place], or go to the closest Emergency Room. 5. Avoid alcohol and un-prescribed drugs. 6. You have been provided with the Mental Health Advance Directives Pamphlet for your review. 7. Your condition is stable for discharge to outpatient level of care, but recovery is an ongoing process. Ifthoughts to harm yourself or others return, follow the safety plan developed during your stay. Planning for a safe return home includes securing weapons. Our treatment team recommends weaponsbe removed from the home until your outpatient provider reassesses your progress. In rare cases where the items themselvescannot be removed, guns and ammunitionshould be secured separatelyand keys stored by a reliable personoutside of the home. If you were admitted on an involuntary commitment, the police or other legal authorities may be involved in this process. AFTERCARE APPOINTMENTS: * Please call your insurance company prior to your scheduled appointment to confirm your aftercare providers are covered. Take your insurance information to your appointments. WHO TO CALL AND WHEN: Medical Emergencies: For questions or emergencies related to your hospital stay, please contact the Inpatient Behavioral Health Unit at [phone]. A vehicle fuel systems converter is on-call 03/02 for the Behavioral Health Unit for emergencies At any time you feel your situation is an emergency, you may also call 911 [facility]. MEDICATION AND PRESCRIPTIONS: During your stay, we have been crushing the deutetrabenazine XR ("Austedo XR") and having you take 24 mg at night because crushing the tablets defeats most of the slow-release mechanism, making this much like what you had been taking before the switch to the XR form. We don't have any form of this medication in the hospital pharmacy, which is why we are using your supply from home. As you know, this is a very expensive medication, and I don't expect patients to be able to afford to fill prescriptions for it. As part of our discharge process, I have sent in a prescription for the immediate-release deutetrabenazine (regular "Austedo"). However, I don't expect that you will be able to fill it because of the cost. That's OK for now as long as you have some of the extended-release form that you can crush. You should get a pill chip crusher operator, which are available at pharmacies and places such as [facility]. Pending Studies at Discharge: No Stand-Alone Forms: My [facility], Smoking Cessation Medications and DC Order Prescriptions: New deutetrabenazine 12 mg tablet 24 mg PO HS 30 Days Qty: 60 0RF Continued metformin 1,000 mg tablet 1,000 mg PO BID Qty: 180 1RF fluoxetine 40 mg capsule 40 mg PO DAILY quetiapine 100 mg tablet 100 mg PO HS Rx Instructions: TOTAL DOSE 500 MG--TAKES WITH 400 MG TAB. quetiapine 400 mg tablet 400 mg PO HS Rx Instructions: TOTAL DOSE 500 MG--TAKES WITH 100 MG TAB. estradiol 0.1 mg/24 hr patch weekly 1 patch transdermal WK Rx Instructions: CHANGES ON FRIDAYS. 1 patch transdermal apply to skin once weekly; Discontinued Austedo XR 24 mg tablet extended release 24 hr 24 mg PO DAILY Discharge Orders: Discharge Order (Routine); Ordered 03/14/23 Ordered By: Stanley James Admission Data Admit Date/Time: 03/12/23 03:51 Attending Provider: Stanley James Admit Provider: Stanley James Primary Care Provider: Ron Mccracken V. Coding Level of Care Code 78783 D/C day mgmt > 30 min Diagnoses Bipolar I disorder with mixed features F31.9 Tardive dyskinesia G24.01 Akathisia G25.71 Time Spent (min) 34
== END 2023-03-14 13:30 | disposition home or self-care (01) | DRG 885 ==
LOC: ED 00:37 → 3S 03:51

== ENCOUNTER 2024-06-07 11:10 | Inpatient (IN) ==
--- NOTE | 2024-06-07 11:27 | Emergency Department Note ---
History of Present Illness General Chief complaint: Abdominal Pain Stated complaint: VOMITING, ABD PAIN, THINKS BLOCKAGE Time Seen by Provider: 06/07/24 11:19 History of Present Illness Maximum Pain Intensity: 8 This is a 44-year-old female with a history of several abdominal surgeries that presents to the emergency department via private vehicle with complaints of "vomiting, abdominal pain, bowel obstruction". The patient notes that this past Friday evening she began with right lower quadrant discomfort followed by vomiting. She notes her last bowel movement was prior to the symptoms. Small amount of flatus yesterday. She has not had any food since yesterday. She has significant nausea. No fever. She states that her symptoms are similar to when she had a bowel obstruction. Home Medications Medication Instructions Recorded Confirmed Type quetiapine 100 mg tablet 100 mg PO HS 01/28/22 06/07/24 History fluoxetine 40 mg capsule 40 mg PO DAILY 02/04/23 06/07/24 History quetiapine 400 mg tablet 400 mg PO HS 03/12/23 06/07/24 History blood sugar diagnostic (OneTouch #100 ea 04/05/24 05/06/24 Rx Ultra Test strips) blood-glucose meter #1 ea 04/05/24 05/06/24 Rx lancets 30 gauge #100 ea 04/05/24 05/06/24 Rx metformin 1,000 mg tablet 1,000 mg PO BID #180 tabs 04/05/24 06/07/24 Rx estradiol 0.1 mg/24 hr weekly 1 patch transdermal WK #12 ea 05/06/24 06/07/24 Rx transdermal patch hydroxyzine HCl 50 mg tablet 50 mg PO ONCE 05/06/24 06/07/24 History propranolol 10 mg tablet 10 mg PO ONCE 05/06/24 06/07/24 History deutetrabenazine 12 mg tablet 12 mg PO BID 06/07/24 06/07/24 History ([place]) Allergies Allergy/AdvReac Type Severity Reaction Status Date / Time morphine AdvReac Intermediate NAUSEA Verified 05/06/24 15:17 VOMITING oxycodone [From Percocet] AdvReac Intermediate Nausea Verified 05/06/24 15:17 Past Med/Surg History Problem List (Updated 06/07/24 @ 13:54 by Jonah Oliveira MD) UTI (urinary tract infection) Nausea & vomiting (Acute) Tachycardia (Acute) Elevated lactic acid level (Acute) Bowel obstruction (Acute) Encounter for gynecological examination Hypertriglyceridemia Bipolar I disorder with mixed features Akathisia Tardive dyskinesia Adrenal nodule Fatty liver Varicose veins of both lower extremities (Acute) Obesity (Acute) Primary hypothyroidism (Acute) Type 2 diabetes mellitus (Acute) Medical History Suicidal thoughts Proteinuria Postmenopausal hormone replacement therapy Constipation Postsurgical menopause Menopausal symptoms Hyperglycemia Health care maintenance Small bowel obstruction Post-operative complication 04/2019 [facility] HYSTER - BOWEL PERFORATION, HYDROPNEUMOTHORAX --> ileostomy, chest tube placement Liver enzyme elevation Anemia Depression (11/26/12) Obesity GERD (gastroesophageal reflux disease) controlled Hypothyroidism Diabetes mellitus, type 2 NIDDM Depression Surgical History History of ileostomy reversed 08/2019 S/P appendectomy Status post reversal of ileostomy History of hysterectomy with unilateral oophorectomy 04/2019 [facility], fibroids, ov cyst bowel perf, hydropneumothorax complications. S/P chest tube placement S/P ileostomy Status post exploratory laparotomy History of laparotomy OVARIAN CYSTECTOMY H/O oophorectomy RIGHT Family History Grandmother (Maternal) Family history of diabetes mellitus Grandmother (Paternal) Family history of diabetes mellitus Grandfather (Paternal) Family history of esophageal cancer Other No family history of adverse response to anesthesia Denies family history of Ovarian cancer Prostate cancer Myocardial infarction Breast cancer Colorectal cancer Stroke Social History Smoking Status: Never smoker Second Hand Exposure: No; Do You Dip or Chew Tobacco: No; Hx Alcohol Use: No Hx Substance Use: No Preferred Language: Slovak 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: Effective Visual Impairment: No Limitations Hearing Ability: Normal 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: No Beliefs That Will Affect Care: None marital status: Current Living Situation: Spouse current occupational status: employed Feels Safe at Home: Yes Dental Care, Regularly: Yes Seatbelt Use: always Sunscreen Use: Yes Gender Identity: Female Assistive Devices: None Review of Systems A total of 10 systems reviewed and were otherwise negative Physical Exam Vital Signs Vital Signs - 24 hr 06/07/24 11:15 06/07/24 11:46 06/07/24 11:54 Temperature 36.7 C Temperature Source Oral Pulse Rate 124 H 117 H 114 H Pulse Rate from SpO2 Sensor 114 H Respiratory Rate 21 12 Respiratory Effort / Characteristics Non-Labored Respiratory Depth Normal Blood Pressure 132/91 Blood Pressure Mean 104 Pulse Oximetry 96 96 Oxygen Delivery Method Room Air Room Air Sepsis Recent Fever Within 48 Hours No Sepsis New/Unexplained Change in Mental Status No Sepsis Action Taken by Nursing No Action Required 06/07/24 12:00 06/07/24 12:24 06/07/24 12:30 Temperature Temperature Source Pulse Rate 116 H 115 H Pulse Rate from SpO2 Sensor 116 H 114 H Respiratory Rate 17 15 Respiratory Effort / Characteristics Respiratory Depth Blood Pressure 122/86 Blood Pressure Mean 99 Pulse Oximetry 95 96 Oxygen Delivery Method Room Air Room Air Sepsis Recent Fever Within 48 Hours Sepsis New/Unexplained Change in Mental Status Sepsis Action Taken by Nursing 06/07/24 12:48 06/07/24 13:00 06/07/24 13:00 Temperature Temperature Source Pulse Rate 115 H 119 H Pulse Rate from SpO2 Sensor 115 H 119 H Respiratory Rate 20 19 Respiratory Effort / Characteristics Respiratory Depth Blood Pressure 124/96 Blood Pressure Mean 108 Pulse Oximetry 96 96 Oxygen Delivery Method Room Air Room Air Sepsis Recent Fever Within 48 Hours Sepsis New/Unexplained Change in Mental Status Sepsis Action Taken by Nursing 06/07/24 13:21 06/07/24 13:30 06/07/24 13:33 Temperature Temperature Source Pulse Rate 127 H 120 H Pulse Rate from SpO2 Sensor 125 H 119 H Respiratory Rate 12 16 Respiratory Effort / Characteristics Respiratory Depth Blood Pressure 134/99 Blood Pressure Mean 104 Pulse Oximetry 97 96 Oxygen Delivery Method Room Air Room Air Sepsis Recent Fever Within 48 Hours Sepsis New/Unexplained Change in Mental Status Sepsis Action Taken by Nursing VITAL SIGNS - Vital signs and nursing notes were reviewed. Tachycardic, otherwise stable and afebrile. GENERAL -44-year-old female appearing her stated age who is in no acute distress. Communicates well with provider and answers questions appropriately. SKIN - Without rashes. No meningeal or petechial rash. HEAD - NC/AT. EYES - PERRL with EOMI bilaterally. Sclera anicteric. NECK - No nuchal rigidity. LUNGS - CTA CARDIAC - RRR ABDOMEN - Abdominal contour normal without pulsations or visible masses. BS normoactive all four quadrants. There is right lower quadrant abdominal tenderness to palpation noted. No guarding or rigidity. No palpable masses, hepatosplenomegaly, or ascites noted. EXTREMITIES - No clubbing or peripheral cyanosis. +5/5 strength noted in UE/LE bilaterally. NEUROLOGIC - Cranial nerves grossly intact. PSYCH -alert, oriented and pleasant on exam Course Administered Medications Parenteral Electrolytes (Plasma-Lyte A Ph 7.4) 1,000 mls @ 80 mls/hr IV .[id number] JANICE Stop: 06/08/24 13:29 Last Admin: 06/07/24 16:38 Dose: 80 mls/hr Documented By: DOYLE Morphine Sulfate (Morphine Sulfate 4 Mg/Ml 1 Ml Carp\\Vial) 4 mg IV Q3H PRN PRN Reason: Severe Pain (7,8,9,10) on NRS Stop: 06/21/24 13:39 Last Admin: 06/07/24 16:37 Dose: 4 mg Documented By: DOYLE Ondansetron HCl (Ondansetron Inj 2 Mg/Ml 2 Ml Vial) 4 mg IV Q4H PRN PRN Reason: Nausea Stop: 07/07/24 13:39 Last Admin: 06/07/24 15:45 Dose: 4 mg Documented By: CASS Discontinued Medications Sodium Chloride (Nss) 1,000 mls @ 999 mls/hr IV .Q1H1M ONE Stop: 06/07/24 13:24 Last Infusion: 06/07/24 15:12 Dose: Infused Documented By: Admin: 06/07/24 12:53 Dose: 999 mls/hr Documented By: BE Ceftriaxone Sodium (Rocephin) 2,000 mg in 50 mls @ 100 mls/hr IV NOW STA Stop: 06/07/24 13:33 Last Infusion: 06/07/24 14:19 Dose: Infused Documented By: Admin: 06/07/24 13:33 Dose: 100 mls/hr Documented By: SAMUEL Parenteral Electrolytes (Plasma-Lyte A Ph 7.4) 1,000 mls @ 999 mls/hr IV .Q1H1M ONE Stop: 06/07/24 14:28 Last Admin: 06/07/24 14:19 Dose: 999 mls/hr Documented By: SAMUEL Parenteral Electrolytes (Plasma-Lyte A Ph 7.4) 1,000 mls @ 999 mls/hr IV .Q1H1M ONE Stop: 06/07/24 16:00 Last Admin: 06/07/24 15:14 Dose: 999 mls/hr Documented By: AKASH Ioversol (Optiray 320 100ml) 94 ml IV ONCE ONE Stop: 06/07/24 12:39 Last Admin: 06/07/24 12:38 Dose: 94 ml Documented By: MARILIN Lorazepam (Lorazepam 1 Mg/1 Ml Syr Ed Inj Use) 0.5 mg IV NOW STA Stop: 06/07/24 13:40 Last Admin: 06/07/24 13:44 Dose: 0.5 mg Documented By: SAMUEL Ondansetron HCl (Ondansetron Inj 2 Mg/Ml 2 Ml Vial) 4 mg IV NOW STA Stop: 06/07/24 11:39 Last Admin: 06/07/24 11:42 Dose: 4 mg Documented By: SAMUEL Medical Decision Making Laboratory Data 06/07/24 11:38 06/07/24 11:38 Lab Results 06/07/24 06/07/24 06/07/24 Range/Units 11:26 11:38 11:44 WBC 16.63 H (4.8-10.8) K/ul RBC 6.16 H (4.20-5.40) M/uL Hgb 17.0 H (12.0-16.0) g/dl Hct 48.2 H (37.0-47.0) % MCV 78.2 L (80.0-100.0) fL MCH 27.6 (25.0-34.0) pg MCHC 35.3 (32.0-36.0) g/dL RDW Std Deviation 35.9 L (36.4-46.3) fL RDW Coeff of Mine 13.0 (11.5-14.5) % Plt Count 367 (130-400) K/uL MPV 11.1 (9.4-12.4) fL Immature Gran % (Auto) 0.7 % Neut % (Auto) 82.3 % Lymph % (Auto) 9.3 % [place] % (Auto) 6.5 % Eos % (Auto) 0.7 % Baso % (Auto) 0.5 % Neut # (Auto) 13.69 H (1.40-6.50) K/uL Lymph # (Auto) 1.55 (1.20-3.40) K/uL Swisher # (Auto) 1.08 H (0.11-0.59) K/uL Eos # (Auto) 0.12 (0.00-0.50) K/uL Baso # (Auto) 0.08 (0.00-0.20) K/uL Immature Gran # (Auto) 0.11 (0.01-0.20) K/uL Sodium 139 (136-145) mmol/L Potassium 4.7 (3.5-5.1) mmol/L Chloride 100 (98-107) mmol/L Carbon Dioxide 27 (21-32) mmol/L Anion Gap 12 H (3-11) BUN 24 H (6-23) mg/dl Creatinine 0.72 (0.6-1.2) mg/dl Est Cr Clr Drug Dosing 118.8 ml/min eGFR 104.36 BUN/Creatinine Ratio 33.3 H (10-20) Glucose 214 H (70-99(Fasting)) mg/dl Lactate 2.4 H* (0.4-2.0) mmol/L Calcium 10.2 (8.6-10.3) mg/dl Magnesium 2.1 (1.7-2.4) mg/dl Total Bilirubin 1.2 H (0.2-1.0) mg/dl AST 19 (13-39) U/L ALT 23 (7-52) U/L Alkaline Phosphatase 89 (34-104) U/L Total Protein 8.6 H (6.0-8.3) gm/dl Albumin 5.0 (3.4-5.0) gm/dl Globulin 3.6 (2.5-4.0) gm/dl Albumin/Globulin Ratio 1.4 (0.9-2) Lipase 21 (11-82) U/L Procalcitonin 0.07 (0-0.5) ng/ml HCG, Qual Negative (Negative) Urine Color [place] Urine Appearance Turbid A (Clear) Urine pH 6.0 (4.5-7.5) Ur Specific [place] 1.036 H (1.000-1.030) Urine Protein 3+ H (Negative) Urine Glucose (UA) Negative (Negative) Urine Ketones Trace H (Negative) Urine Blood Negative (Negative) Urine Nitrite Positive A (Negative) Urine Bilirubin 1+ H (Negative) Urine Urobilinogen Negative (Negative) Ur Leukocyte Esterase 2+ H (Negative) Urine WBC (Auto) >50 H (0-5) /hpf Urine RBC (Auto) 3-5 H (0-2) /hpf U Hyaline Cast (Auto) >20 H (0-2) /lpf U Epithel Cells (Auto) 11-20 H (0-2) /hpf Urine Bacteria (Auto) 4+ H (None Seen) Calcium Oxalate Crystal Present A (None Prsent) Urine Mucus Present A (None Prsent) Imaging Data Radiologist's Impression: Abdomen/Pelvis CT 06/07/24 11:26 EXAM: CT Abdomen and Pelvis With Intravenous Contrast INDICATION: Right lower quadrant pain. Nausea and vomiting. TECHNIQUE: Axial computed tomography images of the abdomen and pelvis with intravenous contrast. Sagittal and coronal reformatted images were created and reviewed. This CT exam was performed using one or more of the following dose reduction techniques: automated exposure control, adjustment of the mA and/or kV according to patient size, and/or use of iterative reconstruction technique. CONTRAST: 94 ml of Optiray 320 was administered intravenously. COMPARISON: 03/04/2020 FINDINGS: Limitations: None. Lung bases: No abnormality noted. Pleural space: No visualized pleural effusion or pneumothorax. Heart: No abnormality noted. Mediastinum: No abnormality noted. ABDOMEN: Liver: Normal size and contour. Hypodense typical of steatosis. No mass or ductal dilation. Gallbladder and bile ducts: The gallbladder is mildly distended. No calcified stones noted. No ductal dilatation or stone. Pancreas: Homogeneous enhancement. No mass, inflammation or ductal dilation. Spleen: No significant abnormality noted. Adrenals: Right adrenal soft tissue mass has enlarged slightly to 3.5 x 2.4 cm (was 3.1 x 1.9 cm). The right appears normal. Kidneys and ureters: Stable exophytic cyst left kidney now contains mild layering debris/milk of calcium. There are few hypodensities in the left kidney and 1 in the right upper pole too small to characterize likely cysts. No stones. No hydronephrosis. Stomach and bowel: There is small bowel obstruction associated with a enteroenteric anastomotic staple line in the right mid pelvis. Proximal loops dilated up to 4.5 cm. The colon is relatively collapsed. Scattered colonic diverticula noted. No local inflammatory process identified. PELVIS: Appendix: No findings to suggest acute appendicitis. Bladder: No filling defects to suggest mass or large stone. No inflammation. Reproductive: Hysterectomy. Cystic changes of the retained ovary now present measuring up to 3.3 cm. ABDOMEN and PELVIS: Intraperitoneal space: No free air. No significant fluid collection. Bones/joints: No acute changes. Soft tissues: Increased size and fat associated with a midline incisional hernia. The neck measures 5.4 cm. Vasculature: No abdominal aortic aneurysm. Lymph nodes: No pathologically enlarged lymph nodes. IMPRESSION: 1. Distal small bowel obstruction with transition point associated with a staple line in the right lateral mid pelvis. Consider adhesions and anastomotic stricture. 2. Hepatic steatosis. 3. Nonspecific left adrenal mass has minimally increased in size. ACT 112: Negative or not required by law. Electronically signed by Chhaya Macdonald 06-07-2024 13:00 PM MDM Narrative Patient was seen and evaluated as above in room B06. Review was performed of triage nursing notes and vital signs. I did review pertinent previous visits and patient history. After obtaining a thorough history and physical examination the above work up was performed. Patient mildly tachycardic on arrival and requesting antiemetics. Will proceed with EKG to assess rhythm as well as QTc. EKG from interpretation reveals sinus tachycardia at a rate of 115 bpm. QTc 475. QRS 86. No ST elevation. Borderline QTc. Will proceed with a one-time dose of IV Zofran but consider alternative antiemetics depending on clinical course. Labs reveal leukocytosis 16.63. Likely hemoconcentrated elevated hemoglobin at 17. Slightly elevated gap at 12 with a BUN of 24. Glucose 214 and lactate elevated at 2.4. Blood culture ordered. Lipase negative. hCG negative. Urinalysis reveals concern for possible UTI. I did order IV ceftriaxone for antimicrobial. IV fluids ordered as well. Patient respectfully declined pain medication. I did discuss presentation with the on-call general surgery service and spoke to AILYN Barnhart. Patient was pending CT scan. CT scan resulted. Bowel obstruction noted. Noting these findings we we will proceed with NG tube and general surgery will consult/come down and see the patient here in the ED. NG tube placed. Furthermore, case discussed with the hospitalist service. Please refer to further documentation regarding her stay. Repeat lactate returned elevated. Additional IV hydration added by medicine service. Patient's heart rate did begin to improve. GCS: 15 In the evaluation and treatment of this patient the following differential diagnoses were entertained: Bowel obstruction, UTI, pyelonephritis, intestinal perforation, among others Impression & Plan Bowel obstruction, Elevated lactic acid level, Tachycardia, Nausea & vomiting Discharge Plan Visit Data Chief Complaint: Abdominal Pain Stated Complaint: VOMITING, ABD PAIN, THINKS BLOCKAGE ED Provider: Alex Magaña ED Midlevel Provider: Misael Norris Discharge Problem: Bowel obstruction, Elevated lactic acid level, Tachycardia, Nausea & vomiting Patient Disposition: Admitted As Inpatient Condition: Good Discharge Instructions Interventions: ED Discharge Assessment Last Done: 06/07/24 15:54
[2024-06-07] MEDS: ONDANSETRON INJ 2 MG/ML 2 ML VIAL IV STA (11:42)
[2024-06-07 12:05] LABS: Basophils # (auto) 0.08 K/uL (0.00-0.20); Basophils % (auto) 0.5 %; Eosinophils # (auto) 0.12 K/uL (0.00-0.50); Eosinophils % (auto) 0.7 %; Hematocrit (blood only) 48.2 % (37.0-47.0); Immature Granulocytes # (auto) 0.11 K/uL (0.01-0.20); Immature Granulocytes % (auto) 0.7 %; Lymphocytes # (auto) 1.55 K/uL (1.20-3.40); Lymphocytes % (auto) 9.3 %; Mean Corpuscular Hemoglobin 27.6 pg (25.0-34.0); Mean Corpuscular Hgb Conc 35.3 g/dL (32.0-36.0); Mean Corpuscular Volume 78.2 fL (80.0-100.0); Mean Platelet Volume 11.1 fL (9.4-12.4); Monocytes # (auto) 1.08 K/uL (0.11-0.59); Monocytes % (auto) 6.5 %; Neutrophils # (auto) 13.69 K/uL (1.40-6.50); Neutrophils % (auto) 82.3 %; Platelet Count 367 K/uL (130-400); RDW Standard Deviation 35.9 fL (36.4-46.3); Red Blood Count 6.16 M/uL (4.20-5.40); White Blood Count 16.63 K/ul (4.8-10.8)
[2024-06-07 12:14] LABS: Pregnancy Test, Serum Negative (Negative)
[2024-06-07 12:15] LABS: Albumin Globulin Ratio 1.4 (0.9-2); BUN Creatinine Ratio 33.3 (10-20); Bilirubin,Total 1.2 mg/dl (0.2-1.0); Calcium 10.2 mg/dl (8.6-10.3); Creatinine Clr Calc Pharmacy 118.8 ml/min; Globulin 3.6 gm/dl (2.5-4.0); Potassium 4.7 mmol/L (3.5-5.1); Total Protein 8.6 gm/dl (6.0-8.3)
[2024-06-07 12:31] LABS: Appearance Urine Turbid (Clear); Bacteria Urine Automated 4+ (None Seen); Bilirubin Urine 1+ (Negative); Blood Urine Negative (Negative); Calcium Oxalate Crystals Urine Present (None Prsent); Cast Urine Automated >20 /lpf (0-2); Color Urine Orange; Glucose Urine UA Negative (Negative); Ketones Urine Trace (Negative); Leukocyte Esterase Urine 2+ (Negative); Mucus Urine Present (None Prsent); Nitrite Urine Positive (Negative); Protein Urine 3+ (Negative); Specific Gravity Urine 1.036 (1.000-1.030); Urobilinogen Urine Negative (Negative); WBC Urine Automated >50 /hpf (0-5)
[2024-06-07] MEDS: OPTIRAY 320 100ml IV ONE (12:38)
[2024-06-07] MEDS: SODIUM CHLORIDE 0.9% 1,000 ML IV ONE (12:53)
--- NOTE | 2024-06-07 13:01 | CT Scan Report ---
EXAM: CT Abdomen and Pelvis With Intravenous Contrast INDICATION: Right lower quadrant pain. Nausea and vomiting. TECHNIQUE: Axial computed tomography images of the abdomen and pelvis with intravenous contrast. Sagittal and coronal reformatted images were created and reviewed. This CT exam was performed using one or more of the following dose reduction techniques: automated exposure control, adjustment of the mA and/or kV according to patient size, and/or use of iterative reconstruction technique. CONTRAST: 94 ml of Optiray 320 was administered intravenously. COMPARISON: 03/04/2020 FINDINGS: Limitations: None. Lung bases: No abnormality noted. Pleural space: No visualized pleural effusion or pneumothorax. Heart: No abnormality noted. Mediastinum: No abnormality noted. ABDOMEN: Liver: Normal size and contour. Hypodense typical of steatosis. No mass or ductal dilation. Gallbladder and bile ducts: The gallbladder is mildly distended. No calcified stones noted. No ductal dilatation or stone. Pancreas: Homogeneous enhancement. No mass, inflammation or ductal dilation. Spleen: No significant abnormality noted. Adrenals: Right adrenal soft tissue mass has enlarged slightly to 3.5 x 2.4 cm (was 3.1 x 1.9 cm). The right appears normal. Kidneys and ureters: Stable exophytic cyst left kidney now contains mild layering debris/milk of calcium. There are few hypodensities in the left kidney and 1 in the right upper pole too small to characterize likely cysts. No stones. No hydronephrosis. Stomach and bowel: There is small bowel obstruction associated with a enteroenteric anastomotic staple line in the right mid pelvis. Proximal loops dilated up to 4.5 cm. The colon is relatively collapsed. Scattered colonic diverticula noted. No local inflammatory process identified. PELVIS: Appendix: No findings to suggest acute appendicitis. Bladder: No filling defects to suggest mass or large stone. No inflammation. Reproductive: Hysterectomy. Cystic changes of the retained ovary now present measuring up to 3.3 cm. ABDOMEN and PELVIS: Intraperitoneal space: No free air. No significant fluid collection. Bones/joints: No acute changes. Soft tissues: Increased size and fat associated with a midline incisional hernia. The neck measures 5.4 cm. Vasculature: No abdominal aortic aneurysm. Lymph nodes: No pathologically enlarged lymph nodes. IMPRESSION: 1. Distal small bowel obstruction with transition point associated with a staple line in the right lateral mid pelvis. Consider adhesions and anastomotic stricture. 2. Hepatic steatosis. 3. Nonspecific left adrenal mass has minimally increased in size. ACT 112: Negative or not required by law. Electronically signed by Chhaya Macdonald 06-07-2024 13:00 PM
--- NOTE | 2024-06-07 13:16 | History & Physical Report ---
Date of Service June 07, 2024 Assessment & Plan (1) Bowel obstruction: Plan: Small bowel obstruction CT-A/P: SBO with transition poitn at R lateral mid pelvis stable line ?adhesions vs anastomotic stricture. Leukocytosis of 16.63, lactate is elevated to 2.4, patient is tachycardic. She received 1 L NSS for SIRS criteria in the ER, will expand to meet at least 1772 cc IBW goal with an additional liter of Plasma-Lyte. Lactate repeat pending. She has had urinary symptoms including dysuria with a white count, covered with Rocephin for possible underlying UTI. Rocephin is continued, Flagyl added to give expanded enteric/translocation coverage. General Surgery consulted NPO, NGT to LIS Multimodal pain control Tylenol IV every 8 hours, morphine every 4 hours for breakthrough ordered Continue antiemetic therapy Zofran every 4 hours. QT is not prolonged on admitting EKG (2) Bipolar I disorder with mixed features: Plan: Bipolar 1 Reviewed history with psych. No good IV alternatives for patient's current regimen. Would hold these and treat primarily with benzodiazepines on-call, will order some Ativan if patient becomes manic/develops worsening insomnia. Once able to tolerate p.o. can resume fluoxetine at current dose, and if she has been hypotensive could resume Seroquel at half dose and then uptitrate back to 500 from there. Appreciate recommendations. Avoid Haldol IV and other antipsychotics for any henri/agitation due to cardiac risk and history of EPS Patient does take propranolol nightly and is at risk of beta-seda with drawal. Will substitute this for 0.5 mg IV after fluid resuscitation has been completed (3) Type 2 diabetes mellitus: Plan: Type II DM Patient with diabetes last A1c 7.2%, generally near goal on metformin monotherapy. Will defer basal insulin and add weight-based SSI CF 40/CR 14 while n.p.o. once diet advanced or if persistently hyperglycemic and requiring scale insulin then add insulin glargine 10 units daily Glucose checks every 4-6 hours while NPO Goal BSG [id number] (4) UTI (urinary tract infection): Plan: Technically meets sepsis criteria due to leukocytosis, dysuria with source, tachycardia/elevated lactic although UA could simply be contaminated and remaining labs due to severe volume contraction with SBO - 1 day of dysuria with leukocytosis and contaminated vs infected appearing UA Repeat lactic pending Blood cultures pending IV FM continued while n.p.o. Patient was reassessed after initial fluids at 1420, tissue perfusion is with brisk capillary refill. Tachycardia is unchanged Plan DVT prophylaxis: SCDs, heparin subcu DVT prophylaxis. Hold if any surgical intervention is anticipated in the next 12-24 hours CODE STATUS: Full code Disposition: Medical telemetry Diet: N.p.o. History of Present Illness Primary Care Provider: Ron Mccracken MD Dennis is a 44-year-old female with a past medical history of bipolar 1 with history of akathisia/tardive dyskinesia, type 2 diabetes mellitus on metformin, and past surgical history of appendectomy, hysterectomy with unilateral oophorectomy, past ileostomy due to large bowel perforation with subsequent reversal who presents to the ER with a leukocytosis, nausea, vomiting and abdominal discomfort and he was found to have a small bowel obstruction with transition point.marco a Farmer is seen at the bedside. Endorses worsening nausea and vomiting. Vomited up her psychiatric medications last night. 3 days of progressive N/V. Feels similar to prior bowel obstructions. Endorses past history of ileostomy with reversal, no sx since that time. Denies fevers. +RLQ tenderness. Minimal tenderness to palpation. Last BM ~4 days ago. Denies diarrhea. No CP/CPressure/dyspnea. No suprapubic tenderness she has had dysuria in the past day. No fevers. Has had some chills. No sweats Takes her propranolol every night. Is at risk of BB withdrawal Endorses past history of tardive dyskinesia, currently doing well on Austedo Feels her current psychiatric medications do well for her bipolar however she vomited these up yesterday has not been able to tolerate them in the last 24 hours Denies chest pain/chest pressure. Denies chest pain with exertion. Can normally walk around with a normal level of function without limiting chest pain or dyspnea. Denies history of kidney disease Current medications: Austedo 12 mg, fluoxetine 40 mg, hydroxyzine 50 mg at bedtime, propranolol 10 mg as needed, Seroquel 500 mg at bedtime, metformin 1 g twice ddaily Medical History: Reviewed Medications: Reviewed Surgical History: Reviewed Family history: Reviewed Allergies: Reviewed Social History: Code Status: Allergies Allergy/AdvReac Type Severity Reaction Status Date / Time morphine AdvReac Intermediate NAUSEA Verified 05/06/24 15:17 VOMITING oxycodone [From Percocet] AdvReac Intermediate Nausea Verified 05/06/24 15:17 Home Medications Medication Instructions Recorded Confirmed Type quetiapine 100 mg tablet 100 mg PO HS 01/28/22 06/07/24 History fluoxetine 40 mg capsule 40 mg PO DAILY 02/04/23 06/07/24 History quetiapine 400 mg tablet 400 mg PO HS 03/12/23 06/07/24 History blood sugar diagnostic (OneTouch #100 ea 04/05/24 05/06/24 Rx Ultra Test strips) blood-glucose meter #1 ea 04/05/24 05/06/24 Rx lancets 30 gauge #100 ea 04/05/24 05/06/24 Rx metformin 1,000 mg tablet 1,000 mg PO BID #180 tabs 04/05/24 06/07/24 Rx estradiol 0.1 mg/24 hr weekly 1 patch transdermal WK #12 ea 05/06/24 06/07/24 Rx transdermal patch hydroxyzine HCl 50 mg tablet 50 mg PO ONCE 05/06/24 06/07/24 History propranolol 10 mg tablet 10 mg PO ONCE 05/06/24 06/07/24 History deutetrabenazine 12 mg tablet 12 mg PO BID 06/07/24 06/07/24 History (Austedo) Past Med/Surg History Problem List (Updated 06/07/24 @ 13:54 by Jonah Oliveira MD) UTI (urinary tract infection) Nausea & vomiting (Acute) Tachycardia (Acute) Elevated lactic acid level (Acute) Bowel obstruction (Acute) Encounter for gynecological examination Hypertriglyceridemia Bipolar I disorder with mixed features Akathisia Tardive dyskinesia Adrenal nodule Fatty liver Varicose veins of both lower extremities (Acute) Obesity (Acute) Primary hypothyroidism (Acute) Type 2 diabetes mellitus (Acute) Medical History Suicidal thoughts Proteinuria Postmenopausal hormone replacement therapy Constipation Postsurgical menopause Menopausal symptoms Hyperglycemia Health care maintenance Small bowel obstruction Post-operative complication 04/2019 [facility] HYSTER - BOWEL PERFORATION, HYDROPNEUMOTHORAX --> ileostomy, c hest tube placement Liver enzyme elevation Anemia Depression (11/26/12) Obesity GERD (gastroesophageal reflux disease) controlled Hypothyroidism Diabetes mellitus, type 2 NIDDM Depression Surgical History History of ileostomy reversed 08/2019 S/P appendectomy Status post reversal of ileostomy History of hysterectomy with unilateral oophorectomy 04/2019 [facility], fibroids, ov cyst bowel perf, hydropneumothorax complications. S/P chest tube placement S/P ileostomy Status post exploratory laparotomy History of laparotomy OVARIAN CYSTECTOMY H/O oophorectomy RIGHT Family History Grandmother (Maternal) Family history of diabetes mellitus Grandmother (Paternal) Family history of diabetes mellitus Grandfather (Paternal) Family history of esophageal cancer Other No family history of adverse response to anesthesia Denies family history of Ovarian cancer Prostate cancer Myocardial infarction Breast cancer Colorectal cancer Stroke Social History Smoking Status: Never smoker Second Hand Exposure: No; Do You Dip or Chew Tobacco: No; Hx Alcohol Use: No Hx Substance Use: No Preferred Language: Jamaican 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: Effective Visual Impairment: No Limitations Hearing Ability: Normal [employer] Director Required: No Beliefs That Will Affect Care: None marital status: Current Living Situation: Spouse current occupational status: employed Feels Safe at Home: Yes Dental Care, Regularly: Yes Seatbelt Use: always Sunscreen Use: Yes Gender Identity: Female Assistive Devices: None Physical Exam Physical Exam: General: A&Ox3. NAD. Cooperative. HEENT: Atraumatic, normocephalic. Vision/hearing intact. Pulm: CTAB A&P. -wheezes, -rales, -rhonchi. Symmetrical chest rise. No increased work of breathing. No respiratory distress. Cardiac: Regular, tachycardic -mrg. Radial pulses intact and symmetrical. Abdominal:Infraumbuliical well healed surgical incision. Minimal RLQ TTP, no rebound/guarding. Abd is soft. BS are intact. Ext: warm, dry Results & Data Results & Data Vital Signs (Past 12 Hours) Vital Signs Temp Pulse Resp BP Pulse Ox O2 Del Method 06/07/24 11:46 117 H 06/07/24 11:15 36.7 C 124 H 21 132/91 96 Room Air PG Care Time/CCT Total # of Minutes Spent Total Time Spent with Patient: Total time spent is greater than 50% in coordination of care (as documented) at patient's floor/unit and/or counseling patient: Coding Level of Care Code 55218 INT INP/OBS CARE 3/75MIN Diagnoses Bowel obstruction K56.609 Bipolar I disorder with mixed features F31.9 Type 2 diabetes mellitus E11.9 UTI (urinary tract infection) N39.0
[2024-06-07] MEDS: cefTRIAXone SODIUM 2,000 MG/50 ML BAG IV STA (13:33)
[2024-06-07] MEDS ORDERED: LORazepam 2 MG/1 ML VIAL IV PRN (13:36)
[2024-06-07] MEDS ORDERED: GLUCOSE 10 TAB/TUBE PO PRN (13:38)
[2024-06-07] MEDS ORDERED: GLUCOSE 40% GEL 15 GM TUBE PO PRN (13:38)
[2024-06-07] MEDS ORDERED: DEXTROSE 50% 50 ML SYRINGE IV PRN (13:38)
[2024-06-07] MEDS ORDERED: GLUCAGON FOR INJ 1 MG VIAL SQ PRN (13:38)
[2024-06-07] MEDS ORDERED: CARBOHYDRATES FOR HYPOGLYCEMIA PO PRN (13:38)
[2024-06-07] MEDS: LORazepam 1 MG/1 ML SYR ED Inj Use IV STA (13:44)
[2024-06-07 14:12] LABS: Magnesium 2.1 mg/dl (1.7-2.4)
[2024-06-07] MEDS: PLASMA-LYTE A 1,000 ML IV ONE ×2 (14:19→15:14)
--- NOTE | 2024-06-07 14:21 | Surgery Consultation ---
Date of Consultation June 07, 2024 Assessment & Plan (1) Bowel obstruction: (2) Tachycardia: (3) Nausea & vomiting: (4) UTI (urinary tract infection): Plan 44 yo female with history of extensive abdominal surgical history in 2019 with total hysterectomy, drainage of abdominal/pelvic abscesses, creation of loop ileostomy and reversal presented to ED with abdominal pain, n,v and inability to keep anything down (liquids or food). CT scan with SBO with transition in RLQ at site of anastomosis. Tachycardic and elevated lactic acid at 2.4 likely secondary to dehydration as abdominal examination is relatively benign. Discussed findings with patient and recommendation for conservative management. Given multiple episodes of vomiting prior to presentation, would recommend NGT insertion for complete bowel rest and decompression. IV fluids given dehydration and elevated lactic acid, pain management and antiemetics as needed. Will follow along. Dr. Kinsey has seen and examined patient, see addendum for further recommendations/plan. History of Present Illness Reason for Consultation: SBO Requesting Physician: Misael Norris PA-C Attending Physician: Dr. Oliveira History of Present Illness Marleny is a 44 yo female with history of bipolar 1 disorder, akathisia, tardive dyskinesia, adrenal nodule, primary hypothyroidism, Type 2 diabetes mellitus and history of total hysterectomy with postoperative intra-abdominal abscess with loop ileostomy formation in 2018 and then ileostomy reversal in 2019 presented to ED with complaint of right lower abdominal pain that started on Friday with nausea, vomiting , and inability to drink or eat anything. Thought maybe she had a bowel blockage. Has not been able to keep water down. No other surgeries since her ileostomy reversal. No fevers, chills, chest pain, shortness of breath, difficulty urination, or blood in urine. Passed gas yesterday. Last bowel movement was Friday. Currently she states she is feeling good, nausea better controlled with zofran. Has not vomited since being in the ED. Abdominal pain has resolved. Feeling slightly bloated. Able to urinate but was very little, slight buring, and looked dark. Allergies Allergy/AdvReac Type Severity Reaction Status Date / Time morphine AdvReac Intermediate NAUSEA Verified 05/06/24 15:17 VOMITING oxycodone [From Percocet] AdvReac Intermediate Nausea Verified 05/06/24 15:17 Home Medications Medication Instructions Recorded Confirmed Type quetiapine 100 mg tablet 100 mg PO HS 01/28/22 06/07/24 History fluoxetine 40 mg capsule 40 mg PO DAILY 02/04/23 06/07/24 History quetiapine 400 mg tablet 400 mg PO HS 03/12/23 06/07/24 History blood sugar diagnostic (OneTouch #100 ea 04/05/24 05/06/24 Rx Ultra Test strips) blood-glucose meter #1 ea 04/05/24 05/06/24 Rx lancets 30 gauge #100 ea 04/05/24 05/06/24 Rx metformin 1,000 mg tablet 1,000 mg PO BID #180 tabs 04/05/24 06/07/24 Rx estradiol 0.1 mg/24 hr weekly 1 patch transdermal WK #12 ea 05/06/24 06/07/24 Rx transdermal patch hydroxyzine HCl 50 mg tablet 50 mg PO ONCE 05/06/24 06/07/24 History propranolol 10 mg tablet 10 mg PO ONCE 05/06/24 06/07/24 History deutetrabenazine 12 mg tablet 12 mg PO BID 06/07/24 06/07/24 History (Austedo) Patient History Medical History Suicidal thoughts Proteinuria Postmenopausal hormone replacement therapy Constipation Postsurgical menopause Menopausal symptoms Hyperglycemia Health care maintenance Small bowel obstruction Post-operative complication 04/2019 [facility] HYSTER - BOWEL PERFORATION, HYDROPNEUMOTHORAX --> ileostomy, chest tube placement Liver enzyme elevation Anemia Depression (11/26/12) Obesity GERD (gastroesophageal reflux disease) controlled Hypothyroidism Diabetes mellitus, type 2 NIDDM Depression Surgical History History of ileostomy reversed 08/2019 S/P appendectomy Status post reversal of ileostomy History of hysterectomy with unilateral oophorectomy 04/2019 [facility], fibroids, ov cyst bowel perf, hydropneumothorax complications. S/P chest tube placement S/P ileostomy Status post exploratory laparotomy History of laparotomy OVARIAN CYSTECTOMY H/O oophorectomy RIGHT Family History Grandmother (Maternal) Family history of diabetes mellitus Grandmother (Paternal) Family history of diabetes mellitus Grandfather (Paternal) Family history of esophageal cancer Other No family history of adverse response to anesthesia Denies family history of Ovarian cancer Prostate cancer Myocardial infarction Breast cancer Colorectal cancer Stroke Social History Smoking Status: Never smoker Second Hand Exposure: No; Do You Dip or Chew Tobacco: No; Hx Alcohol Use: No Hx Substance Use: No Preferred Language: Danish 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: Effective Visual Impairment: No Limitations Hearing Ability: Normal [employer] Systems Integrator Required: No Beliefs That Will Affect Care: None marital status: Current Living Situation: Spouse current occupational status: employed Feels Safe at Home: Yes Dental Care, Regularly: Yes Seatbelt Use: always Sunscreen Use: Yes Gender Identity: Female Assistive Devices: None Review of Systems Review of Systems: All systems reviewed & are unremarkable except as noted in HPI & below Physical Exam Constitutional: WD/WN, vitals as above + obese, cooperative and comfortable; no acute distress and not ill appearing Respiratory: normal respiratory effort, lungs clear to auscultation Cardiovascular: Rate/Rhythm: + tachycardic Heart Sounds: normal S1 and normal S2 Gastrointestinal (Abdomen): Inspection/Auscultation: abdomen normal to inspection and + abdominal surgical scar; abdomen not distended Percussion/Palpation: abdomen soft and + hernia (periumbilical hernia); abdomen nontender, no guarding and abdomen not rigid Skin: no rashes, warm and dry Psychiatric: A+Ox3, euthymic affect Results & Data Vital Signs (Past 12 Hours) Vital Signs Temp Pulse Resp BP Pulse Ox O2 Del Method 06/07/24 11:46 117 H 06/07/24 11:15 36.7 C 124 H 21 132/91 96 Room Air Laboratory Results 06/07/24 06/07/24 Range/Units 11:44 11:38 WBC 16.63 H (4.8-10.8) K/ul RBC 6.16 H (4.20-5.40) M/uL Hgb 17.0 H (12.0-16.0) g/dl Hct 48.2 H (37.0-47.0) % MCV 78.2 L (80.0-100.0) fL MCH 27.6 (25.0-34.0) pg MCHC 35.3 (32.0-36.0) g/dL RDW Std Deviation 35.9 L (36.4-46.3) fL RDW Coeff of Mine 13.0 (11.5-14.5) % Plt Count 367 (130-400) K/uL MPV 11.1 (9.4-12.4) fL Immature Gran % (Auto) 0.7 % Neut % (Auto) 82.3 % Lymph % (Auto) 9.3 % [place] % (Auto) 6.5 % Eos % (Auto) 0.7 % Baso % (Auto) 0.5 % Neut # (Auto) 13.69 H (1.40-6.50) K/uL Lymph # (Auto) 1.55 (1.20-3.40) K/uL [place] # (Auto) 1.08 H (0.11-0.59) K/uL Eos # (Auto) 0.12 (0.00-0.50) K/uL Baso # (Auto) 0.08 (0.00-0.20) K/uL Immature Gran # (Auto) 0.11 (0.01-0.20) K/uL Sodium 139 (136-145) mmol/L Potassium 4.7 (3.5-5.1) mmol/L Chloride 100 (98-107) mmol/L Carbon Dioxide 27 (21-32) mmol/L Anion Gap 12 H (3-11) BUN 24 H (6-23) mg/dl Creatinine 0.72 (0.6-1.2) mg/dl Est Cr Clr Drug Dosing 118.8 ml/min eGFR 104.36 BUN/Creatinine Ratio 33.3 H (10-20) Glucose 214 H (70-99(Fasting)) mg/dl Lactate 2.4 H* (0.4-2.0) mmol/L Calcium 10.2 (8.6-10.3) mg/dl Magnesium 2.1 (1.7-2.4) mg/dl Total Bilirubin 1.2 H (0.2-1.0) mg/dl AST 19 (13-39) U/L ALT 23 (7-52) U/L Alkaline Phosphatase 89 (34-104) U/L Total Protein 8.6 H (6.0-8.3) gm/dl Albumin 5.0 (3.4-5.0) gm/dl Globulin 3.6 (2.5-4.0) gm/dl Albumin/Globulin Ratio 1.4 (0.9-2) Lipase 21 (11-82) U/L HCG, Qual Negative (Negative) Urine Color [place] Urine Appearance Turbid A (Clear) Urine pH 6.0 (4.5-7.5) Ur Specific [place] 1.036 H (1.000-1.030) Urine Protein 3+ H (Negative) Urine Glucose (UA) Negative (Negative) Urine Ketones Trace H (Negative) Urine Blood Negative (Negative) Urine Nitrite Positive A (Negative) Urine Bilirubin 1+ H (Negative) Urine Urobilinogen Negative (Negative) Ur Leukocyte Esterase 2+ H (Negative) Urine WBC (Auto) >50 H (0-5) /hpf Urine RBC (Auto) 3-5 H (0-2) /hpf U Hyaline Cast (Auto) >20 H (0-2) /lpf U Epithel Cells (Auto) 11-20 H (0-2) /hpf Urine Bacteria (Auto) 4+ H (None Seen) Calcium Oxalate Crystal Present A (None Prsent) Urine Mucus Present A (None Prsent) Diagnostic Findings EXAM: CT Abdomen and Pelvis With Intravenous Contrast INDICATION: Right lower quadrant pain. Nausea and vomiting. TECHNIQUE: Axial computed tomography images of the abdomen and pelvis with intravenous contrast. Sagittal and coronal reformatted images were created and reviewed. This CT exam was performed using one or more of the following dose reduction techniques: automated exposure control, adjustment of the mA and/or kV according to patient size, and/or use of iterative reconstruction technique. CONTRAST: 94 ml of Optiray 320 was administered intravenously. COMPARISON: 03/04/2020 FINDINGS: Limitations: None. Lung bases: No abnormality noted. Pleural space: No visualized pleural effusion or pneumothorax. Heart: No abnormality noted. Mediastinum: No abnormality noted. ABDOMEN: Liver: Normal size and contour. Hypodense typical of steatosis. No mass or ductal dilation. Gallbladder and bile ducts: The gallbladder is mildly distended. No calcified stones noted. No ductal dilatation or stone. Pancreas: Homogeneous enhancement. No mass, inflammation or ductal dilation. Spleen: No significant abnormality noted. Adrenals: Right adrenal soft tissue mass has enlarged slightly to 3.5 x 2.4 cm (was 3.1 x 1.9 cm). The right appears normal. Kidneys and ureters: Stable exophytic cyst left kidney now contains mild layering debris/milk of calcium. There are few hypodensities in the left kidney and 1 in the right upper pole too small to characterize likely cysts. No stones. No hydronephrosis. Stomach and bowel: There is small bowel obstruction associated with a enteroenteric anastomotic staple line in the right mid pelvis. Proximal loops dilated up to 4.5 cm. The colon is relatively collapsed. Scattered colonic diverticula noted. No local inflammatory process identified. PELVIS: Appendix: No findings to suggest acute appendicitis. Bladder: No filling defects to suggest mass or large stone. No inflammation. Reproductive: Hysterectomy. Cystic changes of the retained ovary now present measuring up to 3.3 cm. ABDOMEN and PELVIS: Intraperitoneal space: No free air. No significant fluid collection. Bones/joints: No acute changes. Soft tissues: Increased size and fat associated with a midline incisional hernia. The neck measures 5.4 cm. Vasculature: No abdominal aortic aneurysm. Lymph nodes: No pathologically enlarged lymph nodes. IMPRESSION: 1. Distal small bowel obstruction with transition point associated with a staple line in the right lateral mid pelvis. Consider adhesions and anastomotic stricture. 2. Hepatic steatosis. 3. Nonspecific left adrenal mass has minimally increased in size.
--- NOTE | 2024-06-07 15:30 | XRay Report ---
EXAM: Radiograph of the Abdomen 1 View INDICATION: Evaluate nasogastric tube placement. TECHNIQUE: Frontal supine view of the abdomen/pelvis. COMPARISON: No relevant prior studies available. FINDINGS: Limitations: None. Lower thorax: Mild atelectasis noted in the lung bases. Gastrointestinal tract: Air scattered throughout non-dilated intestinal loops. Organs: Visualized organ shadows appear grossly normal. Bones/joints: No fracture, erosion or dislocation. Soft tissues: No abnormality noted. No radiopaque foreign body noted. Tubes, lines and devices: Nasogastric tube terminates in the gastric fundus. IMPRESSION: Nasogastric tube terminates in the gastric fundus. ACT 112: Negative or not required by law. Electronically signed by Chhaya Macdonald 06-07-2024 3:30 PM
[2024-06-07] MEDS: ONDANSETRON INJ 2 MG/ML 2 ML VIAL IV PRN (15:45)
--- NOTE | 2024-06-07 15:57 | Electrocardiogram Report ---
Test Reason : Blood Pressure : */* mmHG Vent. Rate : 115 BPM Atrial Rate : 115 BPM P-R Int : 152 ms QRS Dur : 86 ms QT Int : 344 ms P-R-T Axes : 31 17 58 degrees QTcB Int : 475 ms Sinus tachycardia Otherwise normal ECG When compared with ECG of 22-Apr-2019 05:25, No significant change was found Confirmed by Khris Lr ([id number]) on 06/07/2024 3:57:18 PM Referred By: REFERRED SELF Confirmed By: Khris Lr
[2024-06-07] MEDS: MoRPHine SULFATE 4 MG/ML 1 ML CARP\\VIAL IV PRN (16:37)
[2024-06-07] MEDS: PLASMA-LYTE A 1,000 ML IV SCH (16:38)
[2024-06-07] MEDS: INSULIN ASPART PER UNIT CHARGE SC SCH (18:02)
[2024-06-07] MEDS: diphenhydrAMINE 50 MG/ML VIAL IV ONE (18:06)
[2024-06-07] MEDS: LORazepam 2 MG/1 ML VIAL IV PRN (18:07)
--- NOTE | 2024-06-07 18:55 | XRay Report ---
EXAMINATION: X-ray KUB/abdomen 1 view CLINICAL HISTORY: NG tube repositioned PRIORS: 06/07/2024 TECHNIQUE: Single frontal view abdomen FINDINGS: Overlying bowel gas and stool obscures fine bone detail. Nasogastric tube is present with distal tip terminating in the expected position of the stomach. No dilated loops of bowel. No air-fluid levels. No acute osseous abnormality. IMPRESSION: Appropriate position of the nasogastric tube. Electronically signed by Jaine Wells 06-07-2024 6:55 PM
[2024-06-07] MEDS: PROPRANOLOL HCL 1 MG/ML 1 ML VIAL IV SCH (21:52)
[2024-06-07] MEDS: diphenhydrAMINE 50 MG/ML VIAL IV PRN (22:38)
[2024-06-07] MEDS: MoRPHine SULFATE 2 MG/ML CARP IV PRN (22:43)
[2024-06-07] MEDS: HEPARIN SOD 5,000 UNIT/0.5 ML VIAL SQ SCH (22:54)
[2024-06-07] MEDS: metroNIDAZOLE 500 MG/100 ML BAG IV SCH (23:41)
[2024-06-08] MEDS: INSULIN ASPART PER UNIT CHARGE SC SCH (01:35)
[2024-06-08] MEDS: diphenhydrAMINE 50 MG/ML VIAL IV ONE (01:43)
[2024-06-08 06:39] LABS: Basophils # (auto) 0.03 K/uL (0.00-0.20); Basophils % (auto) 0.5 %; Eosinophils # (auto) 0.02 K/uL (0.00-0.50); Eosinophils % (auto) 0.3 %; Hematocrit (blood only) 40.6 % (37.0-47.0); Immature Granulocytes # (auto) 0.01 K/uL (0.01-0.20); Immature Granulocytes % (auto) 0.2 %; Lymphocytes # (auto) 0.63 K/uL (1.20-3.40); Lymphocytes % (auto) 10.2 %; Mean Corpuscular Hemoglobin 27.6 pg (25.0-34.0); Mean Corpuscular Hgb Conc 34.5 g/dL (32.0-36.0); Mean Corpuscular Volume 79.9 fL (80.0-100.0); Mean Platelet Volume 11.2 fL (9.4-12.4); Monocytes # (auto) 0.94 K/uL (0.11-0.59); Monocytes % (auto) 15.3 %; Neutrophils # (auto) 4.53 K/uL (1.40-6.50); Neutrophils % (auto) 73.5 %; Platelet Count 280 K/uL (130-400); RDW Standard Deviation 36.7 fL (36.4-46.3); Red Blood Count 5.08 M/uL (4.20-5.40); White Blood Count 6.16 K/ul (4.8-10.8)
[2024-06-08 06:48] LABS: Albumin Globulin Ratio 1.3 (0.9-2); Albumin Level 3.9 gm/dl (3.4-5.0); BUN Creatinine Ratio 36.9 (10-20); Bilirubin,Total 1.1 mg/dl (0.2-1.0); Calcium 8.1 mg/dl (8.6-10.3); Creatinine Clr Calc Pharmacy 130.7 ml/min; Globulin 2.9 gm/dl (2.5-4.0); Potassium 4.4 mmol/L (3.5-5.1); Total Protein 6.8 gm/dl (6.0-8.3)
[2024-06-08 07:55] LABS: Estimated Average Glucose 146 mg/dl; Hemoglobin A1C 6.7 % (4.5-5.6)
[2024-06-08 09:14] LABS: A calco-baum cmplx NotReported Not Detected (NotDetected); Bact fragilis Not Reported Not Detected (NotDetected); Blood Culture Id Panel See PCR Comment (NotDetected); C auris Not Reported Not Detected (NotDetected); Calbicans Not Reported Not Detected (NotDetected); Candida glabrata Not Reported Not Detected (NotDetected); Candida krusei Not Reported Not Detected (NotDetected); Cneoformans/gatti Not Reported Not Detected (NotDetected); Cparapsilosis Not Reported Not Detected (NotDetected); E cloacae compx Not Reported Not Detected (NotDetected); Efaecalis Not Reported Not Detected (NotDetected); Efaecium Not Reported Not Detected (NotDetected); Enterobacterales Not Reported Not Detected (NotDetected); Escherichia coli Not Reported Not Detected (NotDetected); H influenzae Not Reported Not Detected (NotDetected); K aerogenes Not Reported Not Detected (NotDetected); Koxytoca Not Reported Not Detected (NotDetected); Kpneumoniae grp Not Reported Not Detected (NotDetected); Lmonocyt Not Reported Not Detected (NotDetected); N meningitidis Not Reported Not Detected (NotDetected); P aeruginosa Not Reported Not Detected (NotDetected); Proteus spp Not Reported Not Detected (NotDetected); Salmonella spp Not Reported Not Detected (NotDetected); Staph lugdunensis Not Reported Not Detected (NotDetected); Staph spp. Not Reported DETECTED (NotDetected); Staphaureus Not Reported Not Detected (NotDetected); Staphepi Not Reported DETECTED (NotDetected); Stenmaltophilia Not Reported Not Detected (NotDetected); Strep agal(GrpB) Not Reported Not Detected (NotDetected); Strep pneum Not Reported Not Detected (NotDetected); Strep pyog (GrpA) Not Reported Not Detected (NotDetected); Strep spp Not Reported Not Detected (NotDetected); mecAC Resistant Gene Not Detected (NotDetected)
[2024-06-08 09:19] LABS: Staphylococcus spp. DETECTED (NotDetected)
[2024-06-08 09:20] LABS: Staphylococcus epidermidis DETECTED (NotDetected)
[2024-06-08] MEDS ORDERED: VANCOMYCIN CONSULT ACTIVE PRN (09:30)
[2024-06-08] MEDS ORDERED: VANCOMYCIN HCL 1,000 MG/270 ML BAG IV ONE (09:30)
--- NOTE | 2024-06-08 09:52 | Hospitalist Progress Note ---
Date of Service June 08, 2024 Assessment & Plan (1) Sepsis: (2) UTI (urinary tract infection): (3) Type 2 diabetes mellitus: (4) Primary hypothyroidism: (5) Small bowel obstruction: (6) Bacteremia: (7) Obesity: (8) Fatty liver: (9) Adrenal nodule: (10) Tardive dyskinesia: (11) Akathisia: (12) Bipolar I disorder with mixed features: Plan 44-year-old female with past medical history of obesity, type 2 diabetes mellitus, fatty liver, bipolar 1 disorder with tar dive dyskinesia, history of extensive abdominal surgical history in 2019 with total hysterectomy, drainage of abdominal/pelvic abscesses, creation of loop ileostomy and reversal presented to ED with abdominal pain, nausea and vomiting and unable to keep any fluid or food down. CAT scan was done which showed SBO with transition in RLQ at site of anastomosis. #Sepsis, present on admission #Suspected UTI #Small bowel obstruction #Bacteremia Source of sepsis is suspected to be bowel/UTI at this point. She presented with leukocytosis, elevated lactic acid levels, tachycardia Blood cultures growing gram-positive cocci in chains Urinalysis shows evidence of infection Follow-up urine culture Check repeat blood cultures Continue IV ceftriaxone plus Flagyl Start IV vancomycin: Pharmacy to dose White count is improved, lactic acid levels have normalized and tachycardia is improving Telemetry shows sinus tachycardia Surgery following the patient: For conservative measures for now with IV fluids, antiemetics, bowel rest with n.p.o. and NG tube for decompression Await further surgery recommendations #Type 2 diabetes mellitus A1c 6.7 Accu-Cheks every 6 hours while NPO with sliding scale insulin coverage #Bipolar disorder with tardive dyskinesia Oral meds on hold for now due to SBO IV Ativan as needed Avoid Haldol and antipsychotics #Obesity #Fatty liver BMI is 36.5 Lifestyle counseling regarding diet, exercise and weight loss provided Outpatient follow-up with PCP #Left adrenal mass Patient is known to have adrenal nodule Outpatient follow-up with PCP for further investigations CODE STATUS: Full code DVT prophylaxis: Bilateral SCDs and heparin subcutaneous 3 times daily Care plan discussed with patient, nursing staff Admission and Anticipated Discharge Date Admission Date: June 07, 2024 Subjective Patient seen and examined H&P reviewed Labs reviewed Radiology reviewed Patient complaining of nausea, states Benadryl helps with the nausea. Zofran not helping with the nausea She has an NG tube which is put out almost 400 mL Abdominal pain is under better control Social history: Patient lives at home with her . She is independent of ADLs. 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 She denies tobacco use or alcohol use Physical Exam Physical Exam: General: No acute distress Psych: Awake and alert, oriented to place person and time HEENT: Anicteric sclera, moist oral mucosa, NG tube in place CVS: Tachycardic Lungs: Bilateral air entry, no wheezing noted Abdomen: Soft, obese, nontender, no rebound, no guarding Ext: No lower extremity edema, no calf tenderness Neuro: No focal motor deficits noted Results & Data Results & Data Vital Signs (Past 12 Hours) Vital Signs Temp Pulse Pulse Resp BP Pulse Ox O2 Del Method 06/08/24 08:18 36.7 C 101 H 19 109/77 95 Room Air 06/08/24 07:17 99 H 06/08/24 03:23 36.9 C 108 H 20 109/70 93 Room Air 06/07/24 23:00 117 H 06/07/24 22:31 111 H Laboratory Results Laboratory Results - last 24 hr 06/07/24 06/07/24 06/07/24 11:26 11:38 11:44 WBC 16.63 H RBC 6.16 H Hgb 17.0 H Hct 48.2 H MCV 78.2 L MCH 27.6 MCHC 35.3 RDW Std Deviation 35.9 L RDW Coeff of Mine 13.0 Plt Count 367 MPV 11.1 Immature Gran % (Auto) 0.7 Neut % (Auto) 82.3 Lymph % (Auto) 9.3 [place] % (Auto) 6.5 Eos % (Auto) 0.7 Baso % (Auto) 0.5 Neut # (Auto) 13.69 H Lymph # (Auto) 1.55 [place] # (Auto) 1.08 H Eos # (Auto) 0.12 Baso # (Auto) 0.08 Immature Gran # (Auto) 0.11 Sodium 139 Potassium 4.7 Chloride 100 Carbon Dioxide 27 Anion Gap 12 H BUN 24 H Creatinine 0.72 Est Cr Clr Drug Dosing 118.8 eGFR 104.36 BUN/Creatinine Ratio 33.3 H Glucose 214 H POC Glucose Estimat Average Glucose Hemoglobin A1c Lactate 2.4 H* Calcium 10.2 Magnesium 2.1 Total Bilirubin 1.2 H AST 19 ALT 23 Alkaline Phosphatase 89 Total Protein 8.6 H Albumin 5.0 Globulin 3.6 Albumin/Globulin Ratio 1.4 Lipase 21 Procalcitonin 0.07 HCG, Qual Negative Urine Color [place] Urine Appearance Turbid A Urine pH 6.0 Ur Specific [place] 1.036 H Urine Protein 3+ H Urine Glucose (UA) Negative Urine Ketones Trace H Urine Blood Negative Urine Nitrite Positive A Urine Bilirubin 1+ H Urine Urobilinogen Negative Ur Leukocyte Esterase 2+ H Urine WBC (Auto) >50 H Urine RBC (Auto) 3-5 H U Hyaline Cast (Auto) >20 H U Epithel Cells (Auto) 11-20 H Urine Bacteria (Auto) 4+ H Calcium Oxalate Crystal Present A Urine Mucus Present A Staphylococcus sp PCR mecA/C-Methicil Resis Gene Staph epidermidis (PCR) Bld Cult ID Panel PCR 06/07/24 06/07/24 06/07/24 13:23 14:29 16:08 WBC RBC Hgb Hct MCV MCH MCHC RDW Std Deviation RDW Coeff of Mine Plt Count MPV Immature Gran % (Auto) Neut % (Auto) Lymph % (Auto) [place] % (Auto) Eos % (Auto) Baso % (Auto) Neut # (Auto) Lymph # (Auto) [place] # (Auto) Eos # (Auto) Baso # (Auto) Immature Gran # (Auto) Sodium Potassium Chloride Carbon Dioxide Anion Gap BUN Creatinine Est Cr Clr Drug Dosing eGFR BUN/Creatinine Ratio Glucose POC Glucose Estimat Average Glucose Hemoglobin A1c Lactate 3.4 H* 2.5 H* Calcium Magnesium Total Bilirubin AST ALT Alkaline Phosphatase Total Protein Albumin Globulin Albumin/Globulin Ratio Lipase Procalcitonin HCG, Qual Urine Color Urine Appearance Urine pH Ur Specific [place] Urine Protein Urine Glucose (UA) Urine Ketones Urine Blood Urine Nitrite Urine Bilirubin Urine Urobilinogen Ur Leukocyte Esterase Urine WBC (Auto) Urine RBC (Auto) U Hyaline Cast (Auto) U Epithel Cells (Auto) Urine Bacteria (Auto) Calcium Oxalate Crystal Urine Mucus Staphylococcus sp PCR DETECTED A mecA/C-Methicil Resis Gene Not Detected Staph epidermidis (PCR) DETECTED A Bld Cult ID Panel PCR See PCR Comment 06/07/24 06/07/24 06/08/24 16:54 20:04 01:01 WBC RBC Hgb Hct MCV MCH MCHC RDW Std Deviation RDW Coeff of Mine Plt Count MPV Immature Gran % (Auto) Neut % (Auto) Lymph % (Auto) [place] % (Auto) Eos % (Auto) Baso % (Auto) Neut # (Auto) Lymph # (Auto) [place] # (Auto) Eos # (Auto) Baso # (Auto) Immature Gran # (Auto) Sodium Potassium Chloride Carbon Dioxide Anion Gap BUN Creatinine Est Cr Clr Drug Dosing eGFR BUN/Creatinine Ratio Glucose POC Glucose 166 H 231 H 212 H Estimat Average Glucose Hemoglobin A1c Lactate Calcium Magnesium Total Bilirubin AST ALT Alkaline Phosphatase Total Protein Albumin Globulin Albumin/Globulin Ratio Lipase Procalcitonin HCG, Qual Urine Color Urine Appearance Urine pH Ur Specific [place] Urine Protein Urine Glucose (UA) Urine Ketones Urine Blood Urine Nitrite Urine Bilirubin Urine Urobilinogen Ur Leukocyte Esterase Urine WBC (Auto) Urine RBC (Auto) U Hyaline Cast (Auto) U Epithel Cells (Auto) Urine Bacteria (Auto) Calcium Oxalate Crystal Urine Mucus Staphylococcus sp PCR mecA/C-Methicil Resis Gene Staph epidermidis (PCR) Bld Cult ID Panel PCR 06/08/24 06/08/24 05:56 06:01 WBC 6.16 D RBC 5.08 Hgb 14.0 D Hct 40.6 MCV 79.9 L MCH 27.6 MCHC 34.5 RDW Std Deviation 36.7 RDW Coeff of Mine 13.0 Plt Count 280 MPV 11.2 Immature Gran % (Auto) 0.2 Neut % (Auto) 73.5 Lymph % (Auto) 10.2 [place] % (Auto) 15.3 Eos % (Auto) 0.3 Baso % (Auto) 0.5 Neut # (Auto) 4.53 Lymph # (Auto) 0.63 L [place] # (Auto) 0.94 H Eos # (Auto) 0.02 Baso # (Auto) 0.03 Immature Gran # (Auto) 0.01 Sodium 142 Potassium 4.4 Chloride 105 Carbon Dioxide 30 Anion Gap 7 BUN 24 H Creatinine 0.65 Est Cr Clr Drug Dosing 130.7 eGFR 109.90 BUN/Creatinine Ratio 36.9 H Glucose 204 H POC Glucose 184 H Estimat Average Glucose 146 Hemoglobin A1c 6.7 H Lactate Calcium 8.1 L D Magnesium Total Bilirubin 1.1 H AST 19 ALT 21 Alkaline Phosphatase 68 Total Protein 6.8 D Albumin 3.9 Globulin 2.9 Albumin/Globulin Ratio 1.3 Lipase Procalcitonin HCG, Qual Urine Color Urine Appearance Urine pH Ur Specific [place] Urine Protein Urine Glucose (UA) Urine Ketones Urine Blood Urine Nitrite Urine Bilirubin Urine Urobilinogen Ur Leukocyte Esterase Urine WBC (Auto) Urine RBC (Auto) U Hyaline Cast (Auto) U Epithel Cells (Auto) Urine Bacteria (Auto) Calcium Oxalate Crystal Urine Mucus Staphylococcus sp PCR mecA/C-Methicil Resis Gene Staph epidermidis (PCR) Bld Cult ID Panel PCR Diagnostic Findings Abdomen/Pelvis CT 06/07/24 11:26 EXAM: CT Abdomen and Pelvis With Intravenous Contrast INDICATION: Right lower quadrant pain. Nausea and vomiting. TECHNIQUE: Axial computed tomography images of the abdomen and pelvis with intravenous contrast. Sagittal and coronal reformatted images were created and reviewed. This CT exam was performed using one or more of the following dose reduction techniques: automated exposure control, adjustment of the mA and/or kV according to patient size, and/or use of iterative reconstruction technique. CONTRAST: 94 ml of Optiray 320 was administered intravenously. COMPARISON: 03/04/2020 FINDINGS: Limitations: None. Lung bases: No abnormality noted. Pleural space: No visualized pleural effusion or pneumothorax. Heart: No abnormality noted. Mediastinum: No abnormality noted. ABDOMEN: Liver: Normal size and contour. Hypodense typical of steatosis. No mass or ductal dilation. Gallbladder and bile ducts: The gallbladder is mildly distended. No calcified stones noted. No ductal dilatation or stone. Pancreas: Homogeneous enhancement. No mass, inflammation or ductal dilation. Spleen: No significant abnormality noted. Adrenals: Right adrenal soft tissue mass has enlarged slightly to 3.5 x 2.4 cm (was 3.1 x 1.9 cm). The right appears normal. Kidneys and ureters: Stable exophytic cyst left kidney now contains mild layering debris/milk of calcium. There are few hypodensities in the left kidney and 1 in the right upper pole too small to characterize likely cysts. No stones. No hydronephrosis. Stomach and bowel: There is small bowel obstruction associated with a enteroenteric anastomotic staple line in the right mid pelvis. Proximal loops dilated up to 4.5 cm. The colon is relatively collapsed. Scattered colonic diverticula noted. No local inflammatory process identified. PELVIS: Appendix: No findings to suggest acute appendicitis. Bladder: No filling defects to suggest mass or large stone. No inflammation. Reproductive: Hysterectomy. Cystic changes of the retained ovary now present measuring up to 3.3 cm. ABDOMEN and PELVIS: Intraperitoneal space: No free air. No significant fluid collection. Bones/joints: No acute changes. Soft tissues: Increased size and fat associated with a midline incisional hernia. The neck measures 5.4 cm. Vasculature: No abdominal aortic aneurysm. Lymph nodes: No pathologically enlarged lymph nodes. IMPRESSION: 1. Distal small bowel obstruction with transition point associated with a staple line in the right lateral mid pelvis. Consider adhesions and anastomotic stricture. 2. Hepatic steatosis. 3. Nonspecific left adrenal mass has minimally increased in size. ACT 112: Negative or not required by law. Electronically signed by Chhaya Macdonald 06-07-2024 13:00 PM KUB X-Ray 06/07/24 14:50 EXAM: Radiograph of the Abdomen 1 View INDICATION: Evaluate nasogastric tube placement. TECHNIQUE: Frontal supine view of the abdomen/pelvis. COMPARISON: No relevant prior studies available. FINDINGS: Limitations: None. Lower thorax: Mild atelectasis noted in the lung bases. Gastrointestinal tract: Air scattered throughout non-dilated intestinal loops. Organs: Visualized organ shadows appear grossly normal. Bones/joints: No fracture, erosion or dislocation. Soft tissues: No abnormality noted. No radiopaque foreign body noted. Tubes, lines and devices: Nasogastric tube terminates in the gastric fundus. IMPRESSION: Nasogastric tube terminates in the gastric fundus. ACT 112: Negative or not required by law. Electronically signed by Chhaya Macdonald 06-07-2024 3:30 PM KUB X-Ray 06/07/24 16:57 EXAMINATION: X-ray KUB/abdomen 1 view CLINICAL HISTORY: NG tube repositioned PRIORS: 06/07/2024 TECHNIQUE: Single frontal view abdomen FINDINGS: Overlying bowel gas and stool obscures fine bone detail. Nasogastric tube is present with distal tip terminating in the expected position of the stomach. No dilated loops of bowel. No air-fluid levels. No acute osseous abnormality. IMPRESSION: Appropriate position of the nasogastric tube. Electronically signed by Janie Wells 06-07-2024 6:55 PM PG Care Time/CCT Total # of Minutes Spent Total Time Spent with Patient: Total time spent is greater than 50% in coordination of care (as documented) at patient's floor/unit and/or counseling patient: Coding Level of Care Code 18186 SUB INP/OBS CARE 3/50MIN Diagnoses Sepsis A41.9 UTI (urinary tract infection) N39.0 Type 2 diabetes mellitus E11.9 Primary hypothyroidism E03.9 Small bowel obstruction K56.609 Bacteremia R78.81 Obesity E66.9 Fatty liver K76.0 Adrenal nodule E27.8 Tardive dyskinesia G24.01 Akathisia G25.71 Bipolar I disorder with mixed features F31.9
[2024-06-08] MEDS: diphenhydrAMINE 50 MG/ML VIAL IV PRN (10:22)
[2024-06-08] MEDS: VANCOMYCIN HCL 2,500 MG in SODIUM CHLORIDE 0.9% 500 ML IV ONE (11:44)
--- NOTE | 2024-06-08 12:44 | Surgery Progress Note ---
Date of Service June 08, 2024 Assessment & Plan (1) Bowel obstruction: (2) Tachycardia: (3) Nausea & vomiting: (4) UTI (urinary tract infection): Plan 44 yo female with history of extensive abdominal surgical history in 2019 with total hysterectomy, drainage of abdominal/pelvic abscesses, creation of loop ileostomy and reversal presented to ED with abdominal pain, n,v and inability to keep anything down (liquids or food). CT scan with SBO with transition in RLQ at site of anastomosis. Tachycardic and elevated lactic acid at 2.4 likely secondary to dehydration as abdominal examination is relatively benign. 06/08/2024 avss lactate2.4 --> 3.4 --> 2.5 --> 1.5 pain last night , now better NGT with 400 cc output no return of bowel function Plan: Continue conservative management encouraged ambulating hallway as much as possible pain management and antiemetics as needed continue medical management Dr. Kinsey has seen and examined patient, see addendum for further recommendations/plan. Admission and Anticipated Discharge Date Admission Date: June 07, 2024 Subjective pain increased last night but no better this am about 3/10 mostly in right lower abdomen last night nausea with emesis last night, nothing this am no fevers chills but feels hot no flatus Physical Exam 2 Constitutional: WD/WN, vitals as above + obese, cooperative and comfortable; no acute distress and not ill appearing Respiratory: normal respiratory effort; no respiratory distress Gastrointestinal (Abdomen): Inspection/Auscultation: abdomen normal to inspection and + abdominal surgical scar; abdomen not distended Percussion/Palpation: + abdomen tender (RLQ) and abdomen soft; no guarding, abdomen not rigid and abdomen not firm NGT with clear/bilious output in tubing and dark green output in canister Skin: no rashes, warm and dry Psychiatric: A+Ox3, euthymic affect Results & Data Vital Signs (Past 12 Hours) Vital Signs Temp Pulse Pulse Resp BP Pulse Ox O2 Del Method 06/08/24 11:36 36.6 C 99 H 19 114/78 94 Room Air 06/08/24 08:18 36.7 C 101 H 19 109/77 95 Room Air 06/08/24 07:17 99 H 06/08/24 03:23 36.9 C 108 H 20 109/70 93 Room Air Laboratory Results 06/08/24 06/08/24 06/08/24 Range/Units 12:04 09:48 06:01 WBC (4.8-10.8) K/ul RBC (4.20-5.40) M/uL Hgb (12.0-16.0) g/dl Hct (37.0-47.0) % MCV (80.0-100.0) fL MCH (25.0-34.0) pg MCHC (32.0-36.0) g/dL RDW Std Deviation (36.4-46.3) fL RDW Coeff of Mine (11.5-14.5) % Plt Count (130-400) K/uL MPV (9.4-12.4) fL Immature Gran % (Auto) % Neut % (Auto) % Lymph % (Auto) % [place] % (Auto) % Eos % (Auto) % Baso % (Auto) % Neut # (Auto) (1.40-6.50) K/uL Lymph # (Auto) (1.20-3.40) K/uL [place] # (Auto) (0.11-0.59) K/uL Eos # (Auto) (0.00-0.50) K/uL Baso # (Auto) (0.00-0.20) K/uL Immature Gran # (Auto) (0.01-0.20) K/uL Sodium (136-145) mmol/L Potassium (3.5-5.1) mmol/L Chloride (98-107) mmol/L Carbon Dioxide (21-32) mmol/L Anion Gap (3-11) BUN (6-23) mg/dl Creatinine (0.6-1.2) mg/dl Est Cr Clr Drug Dosing ml/min eGFR BUN/Creatinine Ratio (10-20) Glucose (70-99(Fasting)) mg/dl POC Glucose 168 H 184 H (70-99) mg/dl Estimat Average Glucose mg/dl Hemoglobin A1c (4.5-5.6) % Lactate 1.5 (0.4-2.0) mmol/L Calcium (8.6-10.3) mg/dl Magnesium (1.7-2.4) mg/dl Total Bilirubin (0.2-1.0) mg/dl AST (13-39) U/L ALT (7-52) U/L Alkaline Phosphatase (34-104) U/L Total Protein (6.0-8.3) gm/dl Albumin (3.4-5.0) gm/dl Globulin (2.5-4.0) gm/dl Albumin/Globulin Ratio (0.9-2) Procalcitonin (0-0.5) ng/ml Staphylococcus sp PCR (NotDetected) mecA/C-Methicil Resis Gene (NotDetected) Staph epidermidis (PCR) (NotDetected) Bld Cult ID Panel PCR (NotDetected) 06/08/24 06/08/24 06/07/24 Range/Units 05:56 01:01 20:04 WBC 6.16 D (4.8-10.8) K/ul RBC 5.08 (4.20-5.40) M/uL Hgb 14.0 D (12.0-16.0) g/dl Hct 40.6 (37.0-47.0) % MCV 79.9 L (80.0-100.0) fL MCH 27.6 (25.0-34.0) pg MCHC 34.5 (32.0-36.0) g/dL RDW Std Deviation 36.7 (36.4-46.3) fL RDW Coeff of Mine 13.0 (11.5-14.5) % Plt Count 280 (130-400) K/uL MPV 11.2 (9.4-12.4) fL Immature Gran % (Auto) 0.2 % Neut % (Auto) 73.5 % Lymph % (Auto) 10.2 % [place] % (Auto) 15.3 % Eos % (Auto) 0.3 % Baso % (Auto) 0.5 % Neut # (Auto) 4.53 (1.40-6.50) K/uL Lymph # (Auto) 0.63 L (1.20-3.40) K/uL [place] # (Auto) 0.94 H (0.11-0.59) K/uL Eos # (Auto) 0.02 (0.00-0.50) K/uL Baso # (Auto) 0.03 (0.00-0.20) K/uL Immature Gran # (Auto) 0.01 (0.01-0.20) K/uL Sodium 142 (136-145) mmol/L Potassium 4.4 (3.5-5.1) mmol/L Chloride 105 (98-107) mmol/L Carbon Dioxide 30 (21-32) mmol/L Anion Gap 7 (3-11) BUN 24 H (6-23) mg/dl Creatinine 0.65 (0.6-1.2) mg/dl Est Cr Clr Drug Dosing 130.7 ml/min eGFR 109.90 BUN/Creatinine Ratio 36.9 H (10-20) Glucose 204 H (70-99(Fasting)) mg/dl POC Glucose 212 H 231 H (70-99) mg/dl Estimat Average Glucose 146 mg/dl Hemoglobin A1c 6.7 H (4.5-5.6) % Lactate (0.4-2.0) mmol/L Calcium 8.1 L D (8.6-10.3) mg/dl Magnesium (1.7-2.4) mg/dl Total Bilirubin 1.1 H (0.2-1.0) mg/dl AST 19 (13-39) U/L ALT 21 (7-52) U/L Alkaline Phosphatase 68 (34-104) U/L Total Protein 6.8 D (6.0-8.3) gm/dl Albumin 3.9 (3.4-5.0) gm/dl Globulin 2.9 (2.5-4.0) gm/dl Albumin/Globulin Ratio 1.3 (0.9-2) Procalcitonin (0-0.5) ng/ml Staphylococcus sp PCR (NotDetected) mecA/C-Methicil Resis Gene (NotDetected) Staph epidermidis (PCR) (NotDetected) Bld Cult ID Panel PCR (NotDetected) 06/07/24 06/07/24 06/07/24 Range/Units 16:54 16:08 14:29 WBC (4.8-10.8) K/ul RBC (4.20-5.40) M/uL Hgb (12.0-16.0) g/dl Hct (37.0-47.0) % MCV (80.0-100.0) fL MCH (25.0-34.0) pg MCHC (32.0-36.0) g/dL RDW Std Deviation (36.4-46.3) fL RDW Coeff of Mine (11.5-14.5) % Plt Count (130-400) K/uL MPV (9.4-12.4) fL Immature Gran % (Auto) % Neut % (Auto) % Lymph % (Auto) % [place] % (Auto) % Eos % (Auto) % Baso % (Auto) % Neut # (Auto) (1.40-6.50) K/uL Lymph # (Auto) (1.20-3.40) K/uL [place] # (Auto) (0.11-0.59) K/uL Eos # (Auto) (0.00-0.50) K/uL Baso # (Auto) (0.00-0.20) K/uL Immature Gran # (Auto) (0.01-0.20) K/uL Sodium (136-145) mmol/L Potassium (3.5-5.1) mmol/L Chloride (98-107) mmol/L Carbon Dioxide (21-32) mmol/L Anion Gap (3-11) BUN (6-23) mg/dl Creatinine (0.6-1.2) mg/dl Est Cr Clr Drug Dosing ml/min eGFR BUN/Creatinine Ratio (10-20) Glucose (70-99(Fasting)) mg/dl POC Glucose 166 H (70-99) mg/dl Estimat Average Glucose mg/dl Hemoglobin A1c (4.5-5.6) % Lactate 2.5 H* 3.4 H* (0.4-2.0) mmol/L Calcium (8.6-10.3) mg/dl Magnesium (1.7-2.4) mg/dl Total Bilirubin (0.2-1.0) mg/dl AST (13-39) U/L ALT (7-52) U/L Alkaline Phosphatase (34-104) U/L Total Protein (6.0-8.3) gm/dl Albumin (3.4-5.0) gm/dl Globulin (2.5-4.0) gm/dl Albumin/Globulin Ratio (0.9-2) Procalcitonin (0-0.5) ng/ml Staphylococcus sp PCR (NotDetected) mecA/C-Methicil Resis Gene (NotDetected) Staph epidermidis (PCR) (NotDetected) Bld Cult ID Panel PCR (NotDetected) 06/07/24 06/07/24 06/07/24 Range/Units 13:23 11:38 11:26 WBC (4.8-10.8) K/ul RBC (4.20-5.40) M/uL Hgb (12.0-16.0) g/dl Hct (37.0-47.0) % MCV (80.0-100.0) fL MCH (25.0-34.0) pg MCHC (32.0-36.0) g/dL RDW Std Deviation (36.4-46.3) fL RDW Coeff of Mine (11.5-14.5) % Plt Count (130-400) K/uL MPV (9.4-12.4) fL Immature Gran % (Auto) % Neut % (Auto) % Lymph % (Auto) % [place] % (Auto) % Eos % (Auto) % Baso % (Auto) % Neut # (Auto) (1.40-6.50) K/uL Lymph # (Auto) (1.20-3.40) K/uL [place] # (Auto) (0.11-0.59) K/uL Eos # (Auto) (0.00-0.50) K/uL Baso # (Auto) (0.00-0.20) K/uL Immature Gran # (Auto) (0.01-0.20) K/uL Sodium (136-145) mmol/L Potassium (3.5-5.1) mmol/L Chloride (98-107) mmol/L Carbon Dioxide (21-32) mmol/L Anion Gap (3-11) BUN (6-23) mg/dl Creatinine (0.6-1.2) mg/dl Est Cr Clr Drug Dosing ml/min eGFR BUN/Creatinine Ratio (10-20) Glucose (70-99(Fasting)) mg/dl POC Glucose (70-99) mg/dl Estimat Average Glucose mg/dl Hemoglobin A1c (4.5-5.6) % Lactate (0.4-2.0) mmol/L Calcium (8.6-10.3) mg/dl Magnesium 2.1 (1.7-2.4) mg/dl Total Bilirubin (0.2-1.0) mg/dl AST (13-39) U/L ALT (7-52) U/L Alkaline Phosphatase (34-104) U/L Total Protein (6.0-8.3) gm/dl Albumin (3.4-5.0) gm/dl Globulin (2.5-4.0) gm/dl Albumin/Globulin Ratio (0.9-2) Procalcitonin 0.07 (0-0.5) ng/ml Staphylococcus sp PCR DETECTED A (NotDetected) mecA/C-Methicil Resis Gene Not Detected (NotDetected) Staph epidermidis (PCR) DETECTED A (NotDetected) Bld Cult ID Panel PCR See PCR Comment (NotDetected)
[2024-06-08] MEDS: cefTRIAXone SODIUM 2,000 MG/50 ML BAG IV SCH (14:34)
--- NOTE | 2024-06-08 15:16 | Pharmacy Report ---
Pharmacy PK ABX Note - Date of Service June 08, 2024 - Assessment and Plan Assessment * 44 year old F receiving vancomycin for treatment of bacteremia. Pertinent microbiologic data includes: 1 of 2 blood cultures from 06/07 positive for Staph epi, sensitivities pending. 2 blood cultures from 06/08 are pending. Urine culture from 06/07 is negative to date. * Ceftriaxone 2gm iv q 24 hours was started yesterday due to positive UA. Day # 1 of antimicrobial therapy. Plan Vancomycin * Loading dose: 2500 mg IV x 1 * Maintenance dose: 1500 mg IV every 12 hours * Regimen is predicted to achieve target AUC/JACQUELINE of 400-600 mg/L.hr * Random vanco level will be ordered in the next 48 hours. Pharmacy will continue to follow and will adjust dose/frequency as necessary. Thank you. Pharmacy has transitioned to AUC monitoring for vancomycin. AUC/JACQUELINE is the preferred PK/PD target and is associated with decreased risk of nephrotoxicity compared to traditional trough targets.
[2024-06-09] MEDS: VANCOMYCIN HCL 1,500 MG in SODIUM CHLORIDE 0.9% 500 ML IV SCH (00:03)
[2024-06-09 06:36] LABS: Basophils # (auto) 0.05 K/uL (0.00-0.20); Basophils % (auto) 0.8 %; Eosinophils # (auto) 0.16 K/uL (0.00-0.50); Eosinophils % (auto) 2.6 %; Hematocrit (blood only) 35.3 % (37.0-47.0); Hemoglobin 11.9 g/dl (12.0-16.0); Immature Granulocytes # (auto) 0.05 K/uL (0.01-0.20); Immature Granulocytes % (auto) 0.8 %; Lymphocytes # (auto) 1.81 K/uL (1.20-3.40); Lymphocytes % (auto) 29.1 %; Mean Corpuscular Hemoglobin 27.7 pg (25.0-34.0); Mean Corpuscular Hgb Conc 33.7 g/dL (32.0-36.0); Mean Corpuscular Volume 82.1 fL (80.0-100.0); Monocytes # (auto) 0.82 K/uL (0.11-0.59); Monocytes % (auto) 13.2 %; Neutrophils # (auto) 3.32 K/uL (1.40-6.50); Neutrophils % (auto) 53.5 %; Platelet Count 220 K/uL (130-400); RDW Coefficient of Variation 13.3 % (11.5-14.5); RDW Standard Deviation 39.5 fL (36.4-46.3); White Blood Count 6.21 K/ul (4.8-10.8)
[2024-06-09 06:51] LABS: Albumin Globulin Ratio 1.4 (0.9-2); Albumin Level 3.4 gm/dl (3.4-5.0); BUN Creatinine Ratio 35.4 (10-20); Bilirubin,Total 0.4 mg/dl (0.2-1.0); C Reactive Protein 11.23 mg/dl (0-0.5); Calcium 7.1 mg/dl (8.6-10.3); Creatinine Clr Calc Pharmacy 177.3 ml/min; Globulin 2.5 gm/dl (2.5-4.0); Magnesium 2.2 mg/dl (1.7-2.4); Potassium 3.8 mmol/L (3.5-5.1); Total Protein 5.9 gm/dl (6.0-8.3)
--- NOTE | 2024-06-09 09:19 | Hospitalist Progress Note ---
Date of Service June 09, 2024 Assessment & Plan (1) Sepsis: Plan: Sepsis, present on admission, bactremia and UTI poa Source of sepsis is suspected to be bowel/UTI, elevated lactic acid levels improving Blood cultures growing gram-positive cocci, staph hominis and epidermitis, 1 of 4 positive maybe a contaminant, told pt were awaiting other cultures and sensitivities before deciding if needed treatment of other testing Continue IV ceftriaxone plus Flagyl ( coverage for sbo and translocation of gut bacteria) stopping iv vancomycin as gram positives likely contaminant Surgery following the patient: For conservative measures for now with IV fluids, antiemetics, bowel rest with n.p.o. and NG tube for decompression Await further surgery recommendations (2) Small bowel obstruction: Plan: History of extensive bowel surgery and ileostomy reversal conservative measurements (3) Type 2 diabetes mellitus: Plan: Type 2 diabetes mellitus A1c 6.7 Accu-Cheks every 6 hours while NPO with sliding scale insulin coverage (4) Obesity: Plan: BMI is 36.6 Fatty liver associated with it (5) Bipolar I disorder with mixed features: Plan: Pt with Akathesia and tardive dyskinesia also meds are on hold Plan 44-year-old female with past medical history of obesity, type 2 diabetes mellitus, fatty liver, bipolar 1 disorder with tar dive dyskinesia, history of extensive abdominal surgical history in 2019 with total hysterectomy, drainage of abdominal/pelvic abscesses, creation of loop ileostomy and reversal presented to ED with abdominal pain, nausea and vomiting and unable to keep any fluid or food down. CAT scan was done which showed SBO with transition in RLQ at site of anastomosis. Left adrenal mass Patient is known to have adrenal nodule Outpatient follow-up with PCP for further investigations CODE STATUS: Full code DVT prophylaxis: Bilateral SCDs and heparin subcutaneous 3 times daily Care plan discussed with patient, nursing staff Admission and Anticipated Discharge Date Admission Date: June 07, 2024 Subjective pain on right side of abdomen, no flatus, ng tube with modest not significant drainage Physical Exam Physical Exam: abd is quiet, no bowel sounds soft no acute , no distension , Results & Data Results & Data Vital Signs (Past 12 Hours) Vital Signs Temp Pulse Pulse Resp BP BP Pulse Ox 06/09/24 07:55 98.1 F 93 H 18 122/74 91 06/09/24 03:22 97.5 F L 87 20 123/80 92 06/08/24 22:52 94 H 06/08/24 22:25 98.2 F 95 H 16 122/82 91 06/08/24 21:30 94 H 122/82 06/08/24 21:15 98 H 122/78 O2 Del Method 06/09/24 07:55 Room Air 06/09/24 03:22 Room Air 06/08/24 22:52 06/08/24 22:25 Room Air 06/08/24 21:30 06/08/24 21:15 Laboratory Results review cbc review chemistry PG Care Time/CCT Total # of Minutes Spent Total Time Spent with Patient: Total time spent is greater than 50% in coordination of care (as documented) at patient's floor/unit and/or counseling patient: Coding Level of Care Code 00751 SUB INP/OBS CARE 3/50MIN Diagnoses Sepsis A41.9 Small bowel obstruction K56.609 Type 2 diabetes mellitus E11.9 Obesity E66.9 Bipolar I disorder with mixed features F31.9
--- NOTE | 2024-06-09 09:28 | Surgery Progress Note ---
Date of Service June 09, 2024 Assessment & Plan (1) Bowel obstruction: (2) Tachycardia: (3) Nausea & vomiting: (4) UTI (urinary tract infection): Plan 44 yo female with history of extensive abdominal surgical history in 2019 with total hysterectomy, drainage of abdominal/pelvic abscesses, creation of loop ileostomy and reversal presented to ED with abdominal pain, n,v and inability to keep anything down (liquids or food). CT scan with SBO with transition in RLQ at site of anastomosis. Tachycardic and elevated lactic acid at 2.4 likely secondary to dehydration as abdominal examination is relatively benign. 06/09/2024 avss, tachycardia resolved RLQ abd pain about the same NGT with 200 cc output no return of bowel function yet Plan: Continue conservative management encouraged ambulating hallway as much as possible pain management and antiemetics as needed continue medical management Dr. Kinsey has seen and examined patient, see addendum for further recommendations/plan. Admission and Anticipated Discharge Date Admission Date: June 07, 2024 Subjective feeling okay this morning still having RLQ abdominal pain, about the same no flatus no nausea no vomiting walked hallway twice yesterday no chest pain or shortness of breath urinating without difficulty, no burning Physical Exam Constitutional: WD/WN, vitals as above + morbidly obese, cooperative and comfortable; no acute distress and not ill appearing Respiratory: normal respiratory effort; no respiratory distress, no labored breathing and no retractions Gastrointestinal (Abdomen): Inspection/Auscultation: abdomen normal to inspection and + abdominal surgical scar; abdomen not distended Percussion/Palpation: + abdomen tender (RLQ on deep palpation) and abdomen soft; no guarding, abdomen not rigid and abdomen not firm NGT canister with 600 cc total output, dark green Skin: no rashes, warm and dry Psychiatric: Orientation: alert and oriented x 3 Results & Data Vital Signs (Past 12 Hours) Vital Signs Temp Pulse Pulse Resp BP BP Pulse Ox 06/09/24 07:55 36.7 C 93 H 18 122/74 91 06/09/24 03:22 36.4 C L 87 20 123/80 92 06/08/24 22:52 94 H 06/08/24 22:25 36.8 C 95 H 16 122/82 91 06/08/24 21:30 94 H 122/82 O2 Del Method 06/09/24 07:55 Room Air 06/09/24 03:22 Room Air 06/08/24 22:52 06/08/24 22:25 Room Air 06/08/24 21:30 Laboratory Results 06/09/24 06/09/24 06/09/24 Range/Units 06:00 05:59 01:01 WBC 6.21 (4.8-10.8) K/ul RBC 4.30 (4.20-5.40) M/uL Hgb 11.9 L (12.0-16.0) g/dl Hct 35.3 L (37.0-47.0) % MCV 82.1 (80.0-100.0) fL MCH 27.7 (25.0-34.0) pg MCHC 33.7 (32.0-36.0) g/dL RDW Std Deviation 39.5 (36.4-46.3) fL RDW Coeff of Mine 13.3 (11.5-14.5) % Plt Count 220 (130-400) K/uL MPV 11.0 (9.4-12.4) fL Immature Gran % (Auto) 0.8 % Neut % (Auto) 53.5 % Lymph % (Auto) 29.1 % Day % (Auto) 13.2 % Eos % (Auto) 2.6 % Baso % (Auto) 0.8 % Neut # (Auto) 3.32 (1.40-6.50) K/uL Lymph # (Auto) 1.81 (1.20-3.40) K/uL Day # (Auto) 0.82 H (0.11-0.59) K/uL Eos # (Auto) 0.16 (0.00-0.50) K/uL Baso # (Auto) 0.05 (0.00-0.20) K/uL Immature Gran # (Auto) 0.05 (0.01-0.20) K/uL Sodium 143 (136-145) mmol/L Potassium 3.8 (3.5-5.1) mmol/L Chloride 108 H (98-107) mmol/L Carbon Dioxide 29 (21-32) mmol/L Anion Gap 6 (3-11) BUN 17 (6-23) mg/dl Creatinine 0.48 L (0.6-1.2) mg/dl Est Cr Clr Drug Dosing 177.3 ml/min eGFR 118.23 BUN/Creatinine Ratio 35.4 H (10-20) Glucose 143 H (70-99(Fasting)) mg/dl POC Glucose 138 H 159 H (70-99) mg/dl Lactate (0.4-2.0) mmol/L Calcium 7.1 L (8.6-10.3) mg/dl Magnesium 2.2 (1.7-2.4) mg/dl Total Bilirubin 0.4 D (0.2-1.0) mg/dl AST 15 (13-39) U/L ALT 16 (7-52) U/L Alkaline Phosphatase 56 (34-104) U/L C-Reactive Protein 11.23 H (0-0.5) mg/dl Total Protein 5.9 L (6.0-8.3) gm/dl Albumin 3.4 (3.4-5.0) gm/dl Globulin 2.5 (2.5-4.0) gm/dl Albumin/Globulin Ratio 1.4 (0.9-2) Vitamin B12 208 (180-914) pg/ml 06/08/24 06/08/24 06/08/24 Range/Units 18:15 12:04 09:48 WBC (4.8-10.8) K/ul RBC (4.20-5.40) M/uL Hgb (12.0-16.0) g/dl Hct (37.0-47.0) % MCV (80.0-100.0) fL MCH (25.0-34.0) pg MCHC (32.0-36.0) g/dL RDW Std Deviation (36.4-46.3) fL RDW Coeff of Mine (11.5-14.5) % Plt Count (130-400) K/uL MPV (9.4-12.4) fL Immature Gran % (Auto) % Neut % (Auto) % Lymph % (Auto) % Day % (Auto) % Eos % (Auto) % Baso % (Auto) % Neut # (Auto) (1.40-6.50) K/uL Lymph # (Auto) (1.20-3.40) K/uL Day # (Auto) (0.11-0.59) K/uL Eos # (Auto) (0.00-0.50) K/uL Baso # (Auto) (0.00-0.20) K/uL Immature Gran # (Auto) (0.01-0.20) K/uL Sodium (136-145) mmol/L Potassium (3.5-5.1) mmol/L Chloride (98-107) mmol/L Carbon Dioxide (21-32) mmol/L Anion Gap (3-11) BUN (6-23) mg/dl Creatinine (0.6-1.2) mg/dl Est Cr Clr Drug Dosing ml/min eGFR BUN/Creatinine Ratio (10-20) Glucose (70-99(Fasting)) mg/dl POC Glucose 150 H 168 H (70-99) mg/dl Lactate 1.5 (0.4-2.0) mmol/L Calcium (8.6-10.3) mg/dl Magnesium (1.7-2.4) mg/dl Total Bilirubin (0.2-1.0) mg/dl AST (13-39) U/L ALT (7-52) U/L Alkaline Phosphatase (34-104) U/L C-Reactive Protein (0-0.5) mg/dl Total Protein (6.0-8.3) gm/dl Albumin (3.4-5.0) gm/dl Globulin (2.5-4.0) gm/dl Albumin/Globulin Ratio (0.9-2) Vitamin B12 (180-914) pg/ml Microbiology 06/08/24 09:48 Aerobic Blood Culture - Preliminary Blood 06/07/24 13:23 Aerobic Blood Culture - Preliminary Blood No growth in Aerobic bottle after 24 hours. Anaerobic Blood Culture - Preliminary No growth in Anaerobic bottle after 24 hours. 06/07/24 11:44 Urine Culture - Final Urine,Clean Catch Three types of organisms present, all high counts probable skin velma. No further identifications or sensitivities to follow. 06/07/24 13:23 Aerobic Blood Culture - Preliminary Blood Gram positive cocci clusters Anaerobic Blood Culture - Preliminary Gram positive cocci clusters
[2024-06-10] MEDS: ACETAMINOPHEN 1,000 MG/100 ML VIAL IV PRN (00:05)
[2024-06-10 05:23] LABS: Basophils # (auto) 0.05 K/uL (0.00-0.20); Basophils % (auto) 0.6 %; Eosinophils # (auto) 0.17 K/uL (0.00-0.50); Eosinophils % (auto) 2.2 %; Hematocrit (blood only) 34.1 % (37.0-47.0); Hemoglobin 11.6 g/dl (12.0-16.0); Immature Granulocytes # (auto) 0.16 K/uL (0.01-0.20); Immature Granulocytes % (auto) 2.1 %; Lymphocytes # (auto) 1.87 K/uL (1.20-3.40); Lymphocytes % (auto) 24.3 %; Mean Corpuscular Hemoglobin 27.8 pg (25.0-34.0); Mean Corpuscular Volume 81.6 fL (80.0-100.0); Mean Platelet Volume 10.7 fL (9.4-12.4); Monocytes # (auto) 0.73 K/uL (0.11-0.59); Monocytes % (auto) 9.5 %; Neutrophils # (auto) 4.73 K/uL (1.40-6.50); Neutrophils % (auto) 61.3 %; Platelet Count 227 K/uL (130-400); RDW Standard Deviation 38.7 fL (36.4-46.3); Red Blood Count 4.18 M/uL (4.20-5.40); White Blood Count 7.71 K/ul (4.8-10.8)
[2024-06-10 05:40] LABS: Albumin Globulin Ratio 1.4 (0.9-2); Albumin Level 3.4 gm/dl (3.4-5.0); BUN Creatinine Ratio 32.4 (10-20); Bilirubin,Total 0.4 mg/dl (0.2-1.0); Calcium 7.2 mg/dl (8.6-10.3); Creatinine Clr Calc Pharmacy 250.3 ml/min; Globulin 2.4 gm/dl (2.5-4.0); Potassium 3.8 mmol/L (3.5-5.1); Total Protein 5.8 gm/dl (6.0-8.3)
--- NOTE | 2024-06-10 11:13 | Hospitalist Progress Note ---
Date of Service June 10, 2024 Assessment & Plan (1) Sepsis: Plan: 44-year-old female with past medical history of obesity, DM2, fatty liver, bipolar 1 disorder with tardive dyskinesia, H/O extensive abdominal surgical history in 2019 with total hysterectomy, drainage of abdominal/pelvic abscesses, creation of loop ileostomy and reversal presented to ED with abdominal pain, N/V. CT A/P showed SBO with transition in RLQ at site of anastomosis. Sepsis, present on admission, bacteremia and UTI poa-now sepsis ruled out- likely leukocytosis, tachycardia from SBO With leukocytosis, tachycardia and elevated lactate on admission, with source of sepsis is suspected to be bowel/UTI Blood cultures 1/2 sets growing Staph hominis and epidermidis, repeat cultures no growth to date-likely was a contaminant and bacteremia ruled out Urine culture with mixed organisms and urinalysis showed contamination with epithelial cells-not a true UTI-UTI ruled out Initially treated with IV ceftriaxone, Flagyl, and vancomycin-have now stopped all antibiotics Continue to follow repeat blood cultures until final Treatment for SBO as below (2) Small bowel obstruction: Plan: History of extensive bowel surgery and ileostomy reversal, hysterectomy, oophorectomy With NG tube placed and on bowel rest, receiving IV fluids Now passing flatus, NG tube clamped and possibly removed later today Will advance diet to clears after tube removed Resume p.o. medications from home once taking p.o. Discontinue IV fluids Appreciate surgery consultation Monitor for complete return of bowel function Follow CBC, BMP, magnesium, and phosphorus in the morning-keep electrolytes replete (3) Type 2 diabetes mellitus: Plan: Hgb A1c 6.7% Accu-Cheks every 6 hours while NPO with sliding scale insulin coverage (4) B12 deficiency: Plan: B12 level checked earlier in this admission and was low normal at 208-start B12 p.o. supplementation 1000 mcg daily With microcytic anemia-check iron studies in the morning and replace iron as needed Needs outpatient GI workup for B12 and iron deficiency (5) Bipolar I disorder with mixed features: Plan: Pt with akathisia and tardive dyskinesia After able to take p.o., resume home Seroquel 500 Mg p.o. at bedtime, propranolol 10 Mg p.o. at bedtime, hydroxyzine 50 Mg p.o. at bedtime, and fluoxetine 40 mg p.o. at bedtime Discontinue as needed IV lorazepam which was being used for anxiety-she does not take lorazepam at home (6) Pelvic cyst in female: Plan: Incidentally noted to have right sided adnexal cystic structure Patient is status post hysterectomy and bilateral oophorectomy. 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 and getting transvaginal pelvic ultrasound as an outpatient-discussed with patient and her at bedside Resume home estradiol patch for hormone replacement therapy Plan Left adrenal mass Patient is known to have adrenal nodule Outpatient follow-up with PCP for further investigations #Obesity, Fatty liver BMI is 36.5 Lifestyle counseling regarding diet, exercise and weight loss provided Outpatient follow-up with PCP CODE STATUS: Full code DVT prophylaxis: Bilateral SCDs and heparin subcutaneous 3 times daily Disposition-continued stay but downgrade to medical/surgical unit, improving, likely discharge in the next 1 to 2 days after diet slowly advanced Admission and Anticipated Discharge Date Admission Date: June 07, 2024 Subjective Passing flatus, no nausea, minimal abd pain. Feeling well, walking the halls. NGT currently clamped this AM and may be removed later by SUrgery Tele with normal sinus rhythm and PVCs with rates in the 70s to 80s Physical Exam Constitutional: WD/WN, vitals as above Respiratory: normal respiratory effort, lungs clear to auscultation Cardiovascular: RRR, no murmur, no edema Gastrointestinal (Abdomen): normal bowel sounds, soft, nontender, no hepatosplenomegaly Psychiatric: A+Ox3, euthymic affect Results & Data Results & Data Vital Signs (Past 12 Hours) Vital Signs Temp Pulse Resp BP BP Pulse Ox Pulse Ox 06/10/24 10:35 95 06/10/24 07:09 36.7 C 90 18 132/79 95 06/10/24 02:34 36.6 C 83 18 132/85 96 O2 Del Method O2 Del Method 06/10/24 10:35 Room Air 06/10/24 07:09 Room Air 06/10/24 02:34 Room Air Laboratory Results CBC, CMP, Blood cultures reviewed PG Care Time/CCT Total # of Minutes Spent Total Time Spent with Patient: Total time spent is greater than 50% in coordination of care (as documented) at patient's floor/unit and/or counseling patient: Coding Level of Care Code 19011 SUB INP/OBS CARE 50MIN Diagnoses Sepsis A41.9 Small bowel obstruction K56.609 Type 2 diabetes mellitus E11.9 B12 deficiency E53.8 Bipolar I disorder with mixed features F31.9 Pelvic cyst in female N94.89
[2024-06-10] MEDS: VANCOMYCIN LEVEL ONE (11:16)
--- NOTE | 2024-06-10 12:11 | Surgery Progress Note ---
Date of Service June 10, 2024 Assessment & Plan (1) Bowel obstruction: (2) Tachycardia: (3) Nausea & vomiting: (4) UTI (urinary tract infection): Plan 44 yo female with history of extensive abdominal surgical history in 2019 with total hysterectomy, drainage of abdominal/pelvic abscesses, creation of loop ileostomy and reversal presented to ED with abdominal pain, n,v and inability to keep anything down (liquids or food). CT scan with SBO with transition in RLQ at site of anastomosis. Tachycardic and elevated lactic acid at 2.4 likely secondary to dehydration as abdominal examination is relatively benign. 06/10/2024 avss, tachycardia resolved RLQ abd pain Improved passing flatus Clamp NG tube. If minimal residual in 4 hours, may remove Plan: Continue conservative management clamp NG tube encouraged ambulating hallway as much as possible pain management and antiemetics as needed continue medical management Admission and Anticipated Discharge Date Admission Date: June 07, 2024 Subjective improving. No nausea or vomiting. Passing flatus. Minimal pain. Physical Exam Gastrointestinal (Abdomen): Inspection/Auscultation: abdomen normal to inspection and + abdominal surgical scar; abdomen not distended Percussion/Palpation: + abdomen tender (RLQ on deep palpation), abdomen soft and + hernia (periumbilical hernia); no guarding, abdomen not rigid and abdomen not firm Results & Data Vital Signs (Past 12 Hours) Vital Signs Temp Pulse Resp BP BP Pulse Ox Pulse Ox 06/10/24 10:35 95 06/10/24 07:09 36.7 C 90 18 132/79 95 06/10/24 02:34 36.6 C 83 18 132/85 96 O2 Del Method O2 Del Method 06/10/24 10:35 Room Air 06/10/24 07:09 Room Air 06/10/24 02:34 Room Air Laboratory Results 06/10/24 06/10/24 06/10/24 Range/Units 06:04 04:56 00:09 WBC 7.71 (4.8-10.8) K/ul RBC 4.18 L (4.20-5.40) M/uL Hgb 11.6 L (12.0-16.0) g/dl Hct 34.1 L (37.0-47.0) % MCV 81.6 (80.0-100.0) fL MCH 27.8 (25.0-34.0) pg MCHC 34.0 (32.0-36.0) g/dL RDW Std Deviation 38.7 (36.4-46.3) fL RDW Coeff of Mine 13.0 (11.5-14.5) % Plt Count 227 (130-400) K/uL MPV 10.7 (9.4-12.4) fL Immature Gran % (Auto) 2.1 % Neut % (Auto) 61.3 % Lymph % (Auto) 24.3 % Todd % (Auto) 9.5 % Eos % (Auto) 2.2 % Baso % (Auto) 0.6 % Neut # (Auto) 4.73 (1.40-6.50) K/uL Lymph # (Auto) 1.87 (1.20-3.40) K/uL Todd # (Auto) 0.73 H (0.11-0.59) K/uL Eos # (Auto) 0.17 (0.00-0.50) K/uL Baso # (Auto) 0.05 (0.00-0.20) K/uL Immature Gran # (Auto) 0.16 (0.01-0.20) K/uL Sodium 138 (136-145) mmol/L Potassium 3.8 (3.5-5.1) mmol/L Chloride 106 (98-107) mmol/L Carbon Dioxide 25 (21-32) mmol/L Anion Gap 7 (3-11) BUN 11 (6-23) mg/dl Creatinine 0.34 L (0.6-1.2) mg/dl Est Cr Clr Drug Dosing 250.3 ml/min eGFR 128.47 BUN/Creatinine Ratio 32.4 H (10-20) Glucose 137 H (70-99(Fasting)) mg/dl POC Glucose 130 H 127 H (70-99) mg/dl Calcium 7.2 L (8.6-10.3) mg/dl Total Bilirubin 0.4 (0.2-1.0) mg/dl AST 12 L (13-39) U/L ALT 14 (7-52) U/L Alkaline Phosphatase 54 (34-104) U/L Total Protein 5.8 L (6.0-8.3) gm/dl Albumin 3.4 (3.4-5.0) gm/dl Globulin 2.4 L (2.5-4.0) gm/dl Albumin/Globulin Ratio 1.4 (0.9-2) 06/09/24 06/09/24 Range/Units 18:16 12:07 WBC (4.8-10.8) K/ul RBC (4.20-5.40) M/uL Hgb (12.0-16.0) g/dl Hct (37.0-47.0) % MCV (80.0-100.0) fL MCH (25.0-34.0) pg MCHC (32.0-36.0) g/dL RDW Std Deviation (36.4-46.3) fL RDW Coeff of Mine (11.5-14.5) % Plt Count (130-400) K/uL MPV (9.4-12.4) fL Immature Gran % (Auto) % Neut % (Auto) % Lymph % (Auto) % Todd % (Auto) % Eos % (Auto) % Baso % (Auto) % Neut # (Auto) (1.40-6.50) K/uL Lymph # (Auto) (1.20-3.40) K/uL Todd # (Auto) (0.11-0.59) K/uL Eos # (Auto) (0.00-0.50) K/uL Baso # (Auto) (0.00-0.20) K/uL Immature Gran # (Auto) (0.01-0.20) K/uL Sodium (136-145) mmol/L Potassium (3.5-5.1) mmol/L Chloride (98-107) mmol/L Carbon Dioxide (21-32) mmol/L Anion Gap (3-11) BUN (6-23) mg/dl Creatinine (0.6-1.2) mg/dl Est Cr Clr Drug Dosing ml/min eGFR BUN/Creatinine Ratio (10-20) Glucose (70-99(Fasting)) mg/dl POC Glucose 146 H 142 H (70-99) mg/dl Calcium (8.6-10.3) mg/dl Total Bilirubin (0.2-1.0) mg/dl AST (13-39) U/L ALT (7-52) U/L Alkaline Phosphatase (34-104) U/L Total Protein (6.0-8.3) gm/dl Albumin (3.4-5.0) gm/dl Globulin (2.5-4.0) gm/dl Albumin/Globulin Ratio (0.9-2)
[2024-06-10] MEDS ORDERED: Nursing to Pharmacy Communication SCH (13:45)
[2024-06-10 16:12] VITALS: RESP 18
[2024-06-10] MEDS ORDERED: SODIUM CHLORIDE 0.65% NA SOLN 45 ML (OCEAN) PRN (17:58)
[2024-06-10] MEDS: INSULIN ASPART PER UNIT CHARGE SC SCH (18:50)
[2024-06-10] MEDS: FLUoxetine HCL 20 MG CAP PO SCH (21:43)
[2024-06-10] MEDS: hydrOXYzine HCl 25 MG TAB PO SCH (21:43)
[2024-06-10] MEDS: QUEtiapine FUMARATE 200 MG TAB PO SCH (21:43)
[2024-06-10] MEDS: PROPRANOLOL HCL 10 MG TAB PO SCH (21:44)
[2024-06-10] MEDS: QUEtiapine FUMARATE 100 MG TABLET PO SCH (21:44)
[2024-06-10] MEDS: AUSTEDO 12 MG PO SCH (21:45)
[2024-06-11 05:30] LABS: Basophils # (auto) 0.08 K/uL (0.00-0.20); Eosinophils # (auto) 0.15 K/uL (0.00-0.50); Eosinophils % (auto) 1.8 %; Hematocrit (blood only) 33.2 % (37.0-47.0); Hemoglobin 11.4 g/dl (12.0-16.0); Immature Granulocytes # (auto) 0.29 K/uL (0.01-0.20); Immature Granulocytes % (auto) 3.5 %; Lymphocytes # (auto) 2.48 K/uL (1.20-3.40); Lymphocytes % (auto) 29.8 %; Mean Corpuscular Hemoglobin 27.7 pg (25.0-34.0); Mean Corpuscular Hgb Conc 34.3 g/dL (32.0-36.0); Mean Corpuscular Volume 80.6 fL (80.0-100.0); Mean Platelet Volume 10.2 fL (9.4-12.4); Monocytes # (auto) 0.73 K/uL (0.11-0.59); Monocytes % (auto) 8.8 %; Neutrophils % (auto) 55.1 %; Nucleated RBC # (auto) 0.02 K/uL (0.00-0.12); Nucleated RBC % (auto) 0.2 %; Platelet Count 240 K/uL (130-400); RDW Coefficient of Variation 12.9 % (11.5-14.5); RDW Standard Deviation 37.2 fL (36.4-46.3); Red Blood Count 4.12 M/uL (4.20-5.40); White Blood Count 8.33 K/ul (4.8-10.8)
[2024-06-11 05:35] LABS: BUN Creatinine Ratio 17.4 (10-20); Calcium 8.1 mg/dl (8.6-10.3); Creatinine Clr Calc Pharmacy 190.3 ml/min; Potassium 3.5 mmol/L (3.5-5.1)
[2024-06-11 05:55] LABS: Ferritin 112.7 ng/ml (8-388)
[2024-06-11] MEDS: ESTRADIOL 0.1 MG/24hrs TDSY TD SCH (08:05)
[2024-06-11] MEDS: CYANOCOBALAMIN (B-12) 500 MCG TABLET PO SCH (08:06)
[2024-06-11 08:28] VITALS: BP 132/86; PULSE 78; TEMP 97.9; O2SAT 97
--- NOTE | 2024-06-11 09:54 | Surgery Progress Note ---
Date of Service June 11, 2024 Assessment & Plan (1) Small bowel obstruction: Plan: resolved regular diet discharge per medical team will sign off Admission and Anticipated Discharge Date Admission Date: June 07, 2024 Subjective having multiple BMs minimal gas pain taking po well Review of Systems Constitutional: no fever and no chills Respiratory: no cough and no dyspnea Cardiovascular: no chest pain Gastrointestinal: + abdominal pain; no nausea and no vomit ing Neurologic: no localized weakness Psychiatric: no behavioral changes Physical Exam Constitutional: WD/WN, vitals as above Respiratory: normal respiratory effort, lungs clear to auscultation Cardiovascular: RRR, no murmur, no edema Gastrointestinal (Abdomen): Inspection/Auscultation: abdomen normal to inspection and normal bowel sounds; abdomen not distended Percussion/Palpation: + abdomen tender and abdomen soft; no guarding and abdomen not rigid Musculoskeletal: Head/Neck/Chest: normocephalic and head atraumatic Skin: no rashes, warm and dry Results & Data Vital Signs (Past 12 Hours) Vital Signs Temp Pulse Resp BP Pulse Ox O2 Del Method 06/11/24 08:26 36.6 C 78 18 132/86 97 Room Air 06/11/24 07:15 Room Air
--- NOTE | 2024-06-11 13:20 | Hospitalist Progress Note ---
Date of Service June 11, 2024 Assessment & Plan (1) Sepsis: Plan: 44-year-old female with past medical history of obesity, DM2, fatty liver, bipolar 1 disorder with tardive dyskinesia, H/O extensive abdominal surgical history in 2019 with total hysterectomy, drainage of abdominal/pelvic abscesses, creation of loop ileostomy and reversal presented to ED with abdominal pain, N/V. CT A/P showed SBO with transition in RLQ at site of anastomosis. Sepsis, present on admission, bacteremia and UTI poa-now sepsis ruled out- likely leukocytosis, tachycardia from SBO With leukocytosis, tachycardia and elevated lactate on admission, with source of sepsis is suspected to be bowel/UTI Blood cultures 1/2 sets growing Staph hominis and epidermidis, repeat cultures no growth to date-likely was a contaminant and bacteremia ruled out Urine culture with mixed organisms and urinalysis showed contamination with epithelial cells-not a true UTI-UTI ruled out Initially treated with IV ceftriaxone, Flagyl, and vancomycin-have now stopped all antibiotics Continue to follow repeat blood cultures until final Treatment for SBO as below (2) Small bowel obstruction: Plan: History of extensive bowel surgery and ileostomy reversal, hysterectomy, oophorectomy With NG tube placed and on bowel rest, receiving IV fluids Now passing flatus, NG tube clamped and possibly removed later today Will advance diet to clears after tube removed Resume p.o. medications from home once taking p.o. Discontinue IV fluids Appreciate surgery consultation Monitor for complete return of bowel function Follow CBC, BMP, magnesium, and phosphorus in the morning-keep electrolytes replete (3) Type 2 diabetes mellitus: Plan: Hgb A1c 6.7% Accu-Cheks every 6 hours while NPO with sliding scale insulin coverage (4) B12 deficiency: Plan: B12 level checked earlier in this admission and was low normal at 208-start B12 p.o. supplementation 1000 mcg daily With microcytic anemia-check iron studies in the morning and replace iron as needed Needs outpatient GI workup for B12 and iron deficiency (5) Bipolar I disorder with mixed features: Plan: Pt with akathisia and tardive dyskinesia After able to take p.o., resume home Seroquel 500 Mg p.o. at bedtime, propranolol 10 Mg p.o. at bedtime, hydroxyzine 50 Mg p.o. at bedtime, and fluoxetine 40 mg p.o. at bedtime Discontinue as needed IV lorazepam which was being used for anxiety-she does not take lorazepam at home (6) Pelvic cyst in female: Plan: Incidentally noted to have right sided adnexal cystic structure Patient is status post hysterectomy and bilateral oophorectomy. 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 and getting transvaginal pelvic ultrasound as an outpatient-discussed with patient and her at bedside Resume home estradiol patch for hormone replacement therapy Plan Left adrenal mass Patient is known to have adrenal nodule Outpatient follow-up with PCP for further investigations #Obesity, Fatty liver BMI is 36.5 Lifestyle counseling regarding diet, exercise and weight loss provided Outpatient follow-up with PCP CODE STATUS: Full code DVT prophylaxis: Bilateral SCDs and heparin subcutaneous 3 times daily Disposition-continued stay but downgrade to medical/surgical unit, improving, likely discharge in the next 1 to 2 days after diet slowly advanced Admission and Anticipated Discharge Date Admission Date: June 07, 2024 Results & Data Results & Data Vital Signs (Past 12 Hours) Vital Signs Temp Pulse Resp BP Pulse Ox O2 Del Method 06/11/24 08:26 36.6 C 78 18 132/86 97 Room Air 06/11/24 07:15 Room Air PG Care Time/CCT Total # of Minutes Spent Total Time Spent with Patient: Total time spent is greater than 50% in coordination of care (as documented) at patient's floor/unit and/or counseling patient: Coding Diagnoses Sepsis A41.9 Small bowel obstruction K56.609 Type 2 diabetes mellitus E11.9 B12 deficiency E53.8 Bipolar I disorder with mixed features F31.9 Pelvic cyst in female N94.89
--- NOTE | 2024-06-11 14:25 | Discharge Summary ---
Date of Service June 11, 2024 Admission HPI Per Admitting Provider Dennis is a 44-year-old female with a past medical history of bipolar 1 with history of akathisia/tardive dyskinesia, type 2 diabetes mellitus on metformin, and past surgical history of appendectomy, hysterectomy with unilateral oophorectomy, past ileostomy due to large bowel perforation with subsequent reversal who presents to the ER with a leukocytosis, nausea, vomiting and abdominal discomfort and he was found to have a small bowel obstruction with transition point.marco a Farmer is seen at the bedside. Endorses worsening nausea and vomiting. Vomited up her psychiatric medications last night. 3 days of progressive N/V. Feels similar to prior bowel obstructions. Endorses past history of ileostomy with reversal, no sx since that time. Denies fevers. +RLQ tenderness. Minimal tenderness to palpation. Last BM ~4 days ago. Denies diarrhea. No CP/CPressure/dyspnea. No suprapubic tenderness she has had dysuria in the past day. No fevers. Has had some chills. No sweats Takes her propranolol every night. Is at risk of BB withdrawal Endorses past history of tardive dyskinesia, currently doing well on Austedo Feels her current psychiatric medications do well for her bipolar however she vomited these up yesterday has not been able to tolerate them in the last 24 hours Denies chest pain/chest pressure. Denies chest pain with exertion. Can normally walk around with a normal level of function without limiting chest pain or dyspnea. Denies history of kidney disease Current medications: Austedo 12 mg, fluoxetine 40 mg, hydroxyzine 50 mg at bedtime, propranolol 10 mg as needed, Seroquel 500 mg at bedtime, metformin 1 g twice ddaily Medical History: Reviewed Medications: Reviewed Surgical History: Reviewed Family history: Reviewed Allergies: Reviewed Social History: Code Status: Admission Exam Per Admitting Provider General: A&Ox3. NAD. Cooperative. HEENT: Atraumatic, normocephalic. Vision/hearing intact. Pulm: CTAB A&P. -wheezes, -rales, -rhonchi. Symmetrical chest rise. No increased work of breathing. No respiratory distress. Cardiac: Regular, tachycardic -mrg. Radial pulses intact and symmetrical. Abdominal:Infraumbuliical well healed surgical incision. Minimal RLQ TTP, no rebound/guarding. Abd is soft. BS are intact. Ext: warm, dry Principal Diagnosis Small bowel obstruction with a history of extensive bowel surgery in the past Pelvic cyst. Advised to follow-up with [facility] for transvaginal ultrasound in near future Left adrenal mass. Follow-up with PCP for further investigation B12 deficiency and microcytic anemia. Recommend follow-up with GI Discharge Exam General: Awake, conversant Heart: S1, S2/regular rate and rhythm, no murmur rubs or gallops Lungs: Clear to auscultation bilaterally. Normal effort Abdomen: Soft/nontender/nondistended. No hepatosplenomegaly Extremities: No clubbing/cyanosis. No edema Behavior: Appropriate, cooperative Discharge Data Allergies Allergy/AdvReac Type Severity Reaction Status Date / Time morphine AdvReac Intermediate NAUSEA Verified 05/06/24 15:17 VOMITING oxycodone [From Percocet] AdvReac Intermediate Nausea Verified 05/06/24 15:17 Consultations 06/07/24 13:16 ED Decision to Admit Stat Ordered Studies Abdomen/Pelvis CT 06/07/24 11:26 EXAM: CT Abdomen and Pelvis With Intravenous Contrast INDICATION: Right lower quadrant pain. Nausea and vomiting. TECHNIQUE: Axial computed tomography images of the abdomen and pelvis with intravenous contrast. Sagittal and coronal reformatted images were created and reviewed. This CT exam was performed using one or more of the following dose reduction techniques: automated exposure control, adjustment of the mA and/or kV according to patient size, and/or use of iterative reconstruction technique. CONTRAST: 94 ml of Optiray 320 was administered intravenously. COMPARISON: 03/04/2020 FINDINGS: Limitations: None. Lung bases: No abnormality noted. Pleural space: No visualized pleural effusion or pneumothorax. Heart: No abnormality noted. Mediastinum: No abnormality noted. ABDOMEN: Liver: Normal size and contour. Hypodense typical of steatosis. No mass or ductal dilation. Gallbladder and bile ducts: The gallbladder is mildly distended. No calcified stones noted. No ductal dilatation or stone. Pancreas: Homogeneous enhancement. No mass, inflammation or ductal dilation. Spleen: No significant abnormality noted. Adrenals: Right adrenal soft tissue mass has enlarged slightly to 3.5 x 2.4 cm (was 3.1 x 1.9 cm). The right appears normal. Kidneys and ureters: Stable exophytic cyst left kidney now contains mild layering debris/milk of calcium. There are few hypodensities in the left kidney and 1 in the right upper pole too small to characterize likely cysts. No stones. No hydronephrosis. Stomach and bowel: There is small bowel obstruction associated with a enteroenteric anastomotic staple line in the right mid pelvis. Proximal loops dilated up to 4.5 cm. The colon is relatively collapsed. Scattered colonic diverticula noted. No local inflammatory process identified. PELVIS: Appendix: No findings to suggest acute appendicitis. Bladder: No filling defects to suggest mass or large stone. No inflammation. Reproductive: Hysterectomy. Cystic changes of the retained ovary now present measuring up to 3.3 cm. ABDOMEN and PELVIS: Intraperitoneal space: No free air. No significant fluid collection. Bones/joints: No acute changes. Soft tissues: Increased size and fat associated with a midline incisional hernia. The neck measures 5.4 cm. Vasculature: No abdominal aortic aneurysm. Lymph nodes: No pathologically enlarged lymph nodes. IMPRESSION: 1. Distal small bowel obstruction with transition point associated with a staple line in the right lateral mid pelvis. Consider adhesions and anastomotic stricture. 2. Hepatic steatosis. 3. Nonspecific left adrenal mass has minimally increased in size. ACT 112: Negative or not required by law. Electronically signed by Chhaya Macdonald 06-07-2024 13:00 PM KUB X-Ray 06/07/24 14:50 EXAM: Radiograph of the Abdomen 1 View INDICATION: Evaluate nasogastric tube placement. TECHNIQUE: Frontal supine view of the abdomen/pelvis. COMPARISON: No relevant prior studies available. FINDINGS: Limitations: None. Lower thorax: Mild atelectasis noted in the lung bases. Gastrointestinal tract: Air scattered throughout non-dilated intestinal loops. Organs: Visualized organ shadows appear grossly normal. Bones/joints: No fracture, erosion or dislocation. Soft tissues: No abnormality noted. No radiopaque foreign body noted. Tubes, lines and devices: Nasogastric tube terminates in the gastric fundus. IMPRESSION: Nasogastric tube terminates in the gastric fundus. ACT 112: Negative or not required by law. Electronically signed by Chhaya Macdonald 06-07-2024 3:30 PM [facility] X-Ray 06/07/24 16:57 EXAMINATION: X-ray KUB/abdomen 1 view CLINICAL HISTORY: NG tube repositioned PRIORS: 06/07/2024 TECHNIQUE: Single frontal view abdomen FINDINGS: Overlying bowel gas and stool obscures fine bone detail. Nasogastric tube is present with distal tip terminating in the expected position of the stomach. No dilated loops of bowel. No air-fluid levels. No acute osseous abnormality. IMPRESSION: Appropriate position of the nasogastric tube. Electronically signed by Janie Wells 06-07-2024 6:55 PM 06/07/24 11:26 CT abd pelvis IV con only Stat Hospital Course (1) Sepsis: 44-year-old female with past medical history of obesity, DM2, fatty liver, bipolar 1 disorder with tardive dyskinesia, H/O extensive abdominal surgical history in 2019 with total hysterectomy, drainage of abdominal/pelvic abscesses, creation of loop ileostomy and reversal presented to ED with abdominal pain, N/V. CT A/P showed SBO with transition in RLQ at site of anastomosis. Sepsis, present on admission, bacteremia and UTI poa-now sepsis ruled out- likely leukocytosis, tachycardia from SBO With leukocytosis, tachycardia and elevated lactate on admission, with source of sepsis is suspected to be bowel/UTI Blood cultures 1/2 sets growing Staph hominis and epidermidis, repeat cultures no growth to date-likely was a contaminant and bacteremia ruled out Urine culture with mixed organisms and urinalysis showed contamination with epithelial cells-not a true UTI-UTI ruled out Initially treated with IV ceftriaxone, Flagyl, and vancomycin-have now stopped all antibiotics Continue to follow repeat blood cultures until final Treatment for SBO as below (2) Small bowel obstruction: History of extensive bowel surgery and ileostomy reversal, hysterectomy, oophorectomy Improved with conservative measures only NG tube has been removed Patient is tolerating solid meals Resume p.o. medications Had 2 bowel movements 06/10 Appreciate surgery consultation (3) Type 2 diabetes mellitus: Hgb A1c 6.7% Accu-Cheks every 6 hours while NPO with sliding scale insulin coverage (4) B12 deficiency: B12 level checked earlier in this admission and was low normal at 208-start B12 p.o. supplementation 1000 mcg daily With microcytic anemia-check iron studies in the morning and replace iron as needed Needs outpatient GI workup for B12 and iron deficiency (5) Bipolar I disorder with mixed features: Pt with akathisia and tardive dyskinesia resumed home Seroquel 500 Mg p.o. at bedtime, propranolol 10 Mg p.o. at bedtime, hydroxyzine 50 Mg p.o. at bedtime, and fluoxetine 40 mg p.o. at bedtime (6) Pelvic cyst in female: Incidentally noted to have right sided adnexal cystic structure Patient is status post hysterectomy and bilateral oophorectomy. Her right ovary was removed urgently 30 years ago No mention of cystic structure in this region on previous CT abdomen/pelvis from several years ago upon my review Recommend following up with her outpatient [facility] and getting transvaginal pelvic ultrasound as an outpatient-discussed with patient and her at bedside Resume home estradiol patch for hormone replacement therapy Plan Left adrenal mass Patient is known to have adrenal nodule Outpatient follow-up with PCP for further investigations #Obesity, Fatty liver BMI is 36.5 Lifestyle counseling regarding diet, exercise and weight loss provided Outpatient follow-up with PCP CODE STATUS: Full code DVT prophylaxis: Bilateral SCDs and heparin subcutaneous 3 times daily Disposition-continued stay but downgrade to medical/surgical unit, improving, likely discharge in the next 1 to 2 days after diet slowly advanced Total Time Total Time Spent Total Time Spent (In Minutes): 35 Discharge Plan Discharge Items Patient Disposition: Home - Self-Care Reason For Visit: SBO Discharge Diagnosis: Small bowel obstruction with a history of extensive bowel surgery in the past Pelvic cyst. Advised to follow-up with [facility] for transvaginal ultrasound in near future Left adrenal mass. Follow-up with PCP for further investigation B12 deficiency and microcytic anemia. Recommend follow-up with GI Condition on Discharge: Good Activity: Resume your previous activity Non-emergency contact: Primary Care Provider Call non-emergency contact if: you have any medication questions and your symptoms worsen Follow-up/Referrals: Ron Mccracken MD [Primary Care Provider] - Diet: Carb Consistent or DM2 Addtl Attending Provider Instructions: Advised to follow-up with PCP in 1 week Advised to follow-up with [facility] to have a transvaginal ultrasound to evaluate the pelvic cyst seen on CT Advised to follow-up with GI as planned to workup B12 deficiency and microc ytic anemia Pending Studies at Discharge: No Stand-Alone Forms: My [facility], Work/School Release Medications and DC Order Prescriptions: New cyanocobalamin (vitamin B-12) 500 mcg Tablet 1,000 mcg PO QAM 30 Days Qty: 60 0RF Continued fluoxetine 40 mg capsule 40 mg PO DAILY metformin 1,000 mg tablet 1,000 mg PO BID Qty: 180 3RF Rx Instructions: last filled 02/24 for 90 per pharmacy (DME) lancets 30 gauge misc See Rx Instructions .MEDSUPPLY Qty: 100 5RF Rx Instructions: test once daily prior to meal (DME) OneTouch Ultra Test Strip See Rx Instructions .MEDSUPPLY Qty: 100 5RF Rx Instructions: test once daily prior to meal (DME) blood-glucose meter Kit See Rx Instructions .MEDSUPPLY Qty: 1 0RF Rx Instructions: As directed propranolol 10 mg tablet 10 mg PO ONCE hydroxyzine HCl 50 mg tablet 50 mg PO ONCE estradiol 0.1 mg/24 hr patch weekly 1 patch transdermal WK Qty: 12 3RF Rx Instructions: CHANGES ON FRIDAYS. 1 patch transdermal apply to skin once weekly; quetiapine 100 mg tablet 100 mg PO HS Rx Instructions: TOTAL DOSE 500 MG--TAKES WITH 400 MG TAB. quetiapine 400 mg tablet 400 mg PO HS Rx Instructions: TOTAL DOSE 500 MG--TAKES WITH 100 MG TAB. Austedo 12 mg tablet 12 mg PO BID Discharge Orders: Discharge Order (Routine); Ordered 06/11/24 Ordered By: Edwardo James/Other Patient Handouts: Managing Type 2 Diabetes Admission Data Admit Date/Time: 06/07/24 13:40 Attending Provider: Edwardo Yusuf Admit Provider: Jonah Oliveira Primary Care Provider: Ron Mccracken V. Other Providers: Jonah Oliveira Other Interventions: Discharge Summary Assessment (RN) Last Done: 06/11/24 12:58
== END 2024-06-11 14:17 | disposition home or self-care (01) | DRG 389 ==
LOC: ED 11:10 → SUATTDRO 13:40 → 4W 13:40 → 3E 06-10 16:23